=== PATIENT | female | born 1950 | race Caucasian/White ===

== ENCOUNTER 2020-05-05 21:00 | Inpatient (IN) | payer MEDICARE, SELFPAY ==
--- NOTE | ~2020-05-05 | XR_ITS ---
EXAMINATION: XR surgery orthopedic DATE: 05/06/2020 12:53 INDICATION: Left femoral subtrochanteric fracture TECHNIQUE: 9 fluoroscopic spot images of the left femur were obtained during procedure performed by Christina Tellez. Radiologist was not present for the imaging or procedure. The amount of fluoroscopy ti me used during this procedure was 3.1 minutes. COMPARISON: 05/05/2020 FINDINGS: Successful reduction to near-anatomic alignment of the previously noted displaced, angulated and rota pati subtrochanteric fracture of the proximal left femur. The fractures absolutely fixed with an anteg rade intramedullary melinda with interlocking femoral neck screw as well as a distal interlocking screw i n the distal metadiaphyseal region. Partially visualized is a prior left total knee arthroplasty with patellar resurfacing appears in near-anatomic alignment with no periprosthetic lucency to suggest lo osening. No new fractures identified. Normal alignment at the left hip with mild posterior joint spac e narrowing consistent with mild osteoarthritis. IMPRESSION: 1. Essentially anatomic alignment post open reduction internal fixation of a subtrochanteric fracture of the proximal left femur. Reviewed, dictated and finalized at location H. NESS CONTINUITY MANAGEMENT DIRECTOR IMPRESSION: 1. Essentially anatomic alignment post open reduction internal fixation of a kemp btrochanteric fracture of the proximal left femur.
--- NOTE | ~2020-05-05 | XR_ITS ---
XR chest 1V portable 05/10/2020 06:49 Indication: CovidPneumonia Procedure: AP portable chest Comparison: 05/05/2020 Findings: Patchy bilateral airspace disease, compatible with pneumonia. No significant change. Healed right rib fracture. No pleural effusion or pneumothorax. There are cholecystectomy clips. Impression: 1: Stable patchy bilateral airspace disease, compatible with pneumonia. Reviewed, dictated and finalized at location A. RESSED AIR PILE DRIVER OPERATOR Impression: 1: Stable patchy bilateral airspace disease, compatible with pneumonia.
--- NOTE | ~2020-05-05 | XR_ITS ---
EXAMINATION: XR hip LT 2V w AP pelvis DATE: 05/05/2020 21:21 INDICATION: Left hip pain post fall 2 weeks prior TECHNIQUE: Anteroposterior view of the pelvis and anteroposterior, frog leg and cross-table lateral v iews of the left hip were obtained. COMPARISON: None. FINDINGS: Oblique subtrochanteric fracture the proximal left femur. There is 70 degree posterior angulation, 35 degrees medial angulation and 6 cm proximal and medial displacement. The head of the left femur jessica ins normally centered in the left acetabulum but is significantly abducted and externally rotated. Th ere is some amorphous calcification near the proximal fracture margin consistent with calcific format ion related and subacute chronicity. Normal alignment at the right hip. No other fractures identified . Power hip joint spaces appear relatively preserved. Combined instrumented anterior and posterior sp inal fusion likely from L3 through S1. IMPRESSION: 1. Significant displacement and angulation of a subacute subtrochanteric fracture of the proximal lef t femur. Reviewed, dictated and finalized at location . MACHINE OPERATOR IMPRESSION: 1. Significant displacement and angulation of a subacute subtrochanteric fractu re of the proximal left femur.
--- NOTE | ~2020-05-05 | XR_ITS ---
XR chest 1V portable 05/09/2020 06:06 Indication: CovidPneumonia Procedure: AP portable chest Comparison: 05/05/2020 Findings: Elevated left diaphragm. Bilateral mixed interstitial and airspace disease most confluent i n the left mid and lower lung zone. No significant pleural effusion or pneumothorax. No acute osseous abnormality. Stable cardiomegaly. Impression: 1: Bilateral mixed interstitial and airspace disease with progression in the left mid and lower lung zone, consistent with pneumonia. Reviewed, dictated and finalized at location A. PULLER Impression: 1: Bilateral mixed interstitial and airspace disease with progression in the le ft mid and lower lung zone, consistent with pneumonia.
--- NOTE | ~2020-05-05 | XR_ITS ---
EXAMINATION: XR chest 1V portable DATE: 05/05/2020 21:56 INDICATION: Hypertension and leukocytosis. Fall with hip fracture. Preoperative evaluation. TECHNIQUE: frontal view of the chest was obtained. COMPARISON: None FINDINGS: Elevation of the left hemidiaphragm. Mild cardiomegaly and pulmonary vascular congestion. No focal ai rspace opacities, pulmonary edema, pleural effusion or pneumothorax. Old healed posterior right sixth rib fracture. Cholecystectomy clips in right upper quadrant. IMPRESSION: 1. Cardiomegaly with pulmonary vascular congestion but no other acute cardiopulmonary disease. 2. Elevation of the left hemidiaphragm. Reviewed, dictated and finalized at location H. VISION SERVICE ENGINEER IMPRESSION: 1. Cardiomegaly with pulmonary vascular congestion but no other acute cardiopul monary disease. 2. Elevation of the left hemidiaphragm.
[2020-05-05 20:55] VITALS: BP 140/84; PULSE 95; RESP 17; TEMP 36.4; O2SAT 97
[2020-05-05] MEDS: MORPHINE SULFATE (*CRX) 4 MG/ML INJ IV PUSH (21:40)
--- NOTE | 2020-05-05 21:40 | ECG_ITS ---
Measurements Intervals [place] Rate: 85 P: 60 GA: 184 QRS: -10 QRSD: 105 T: 32 QT: 371 QTc: 441 Interpretive Statements SINUS RHYTHM VOLTAGE CRITERIA FOR LVH BORDERLINE R WAVE PROGRESSION, ANTERIOR LEADS BASELINE ARTIFACT- I, II, III, AVL, AVF, V5 BORDERLINE ECG Electronically Signed On 05-06-2020 9:59:40 SEISMOGRAPHER by Hema Gaspar D.O.
--- NOTE | 2020-05-05 21:47 | ED.GENADULT ---
HPI - General Adult General Chief complaint: Extremity Injury, Lower Stated complaint: L hip pain, non traumatic Time Seen by Provider: 05/05/20 21:02 Source: RN notes reviewed History of Present Illness HPI narrative: Patient presents emergency department via EMS for left hip pain. Patient states that she was sitting on the toilet and to get up when she felt a pop in her left hip and pain since that time states pain with any movement of the left hip. Patient denies falling off the toilet or any other injuries. She states that she did fall approximately 3 weeks ago onto the left side and has been having left hip pain since that time she had x-rays taken that were -3 weeks ago she denies any trauma or injury since that time she denies striking her head chest pain shortness of breath or any other symptoms. Patient was given 75 mcg of fentanyl in route by EMS Related Data Home Medications Medication Instructions Recorded Confirmed adalimumab [Humira(CF) Pen] mg SUBCUT 05/05/20 albuterol sulfate INHALATION 05/05/20 amlodipine 05/05/20 atorvastatin 05/05/20 azelastine INTRANASAL 05/05/20 buspirone mg 05/05/20 celecoxib mg 05/05/20 clonazepam 05/05/20 clotrimazole mg 05/05/20 cyclobenzaprine mg 05/05/20 escitalopram oxalate mg 05/05/20 fluticasone propionate INTRANASAL 05/05/20 furosemide 05/05/20 gabapentin 05/05/20 indapamide mg 05/05/20 methadone 10 mg PO DAILY 05/05/20 montelukast mg 05/05/20 nitrofurantoin monohyd/m-cryst 05/05/20 omeprazole 05/05/20 pramipexole mg 05/05/20 prednisone 05/05/20 tramadol mg 05/05/20 trazodone 05/05/20 Allergies Allergy/AdvReac Type Severity Reaction Status Date / Time Penicillins Allergy Unknown Verified 05/05/20 21:05 scopolamine Allergy Unknown Verified 05/05/20 21:05 Sulfa (Sulfonamide Allergy Unknown Verified 05/05/20 21:05 Antibiotics) Review of Systems Review of Systems: Narrative: Gen.: Denies fevers or chills ENT: Denies congestion Respiratory: Denies shortness of breath or cough CV: Denies chest pain or palpitations GI: Denies abdominal pain nausea, emesis or diarrhea Musculoskeletal: See HPI Neuro: Denies numbness, tingling, weakness or focal weakness Skin: Denies rash Except as documented, all other systems reviewed and negative [facility] Past Medical History Medical History (Updated 05/05/20 @ 22:44 by Haja Ortega DO) Hypertension Social History Social History (Updated 05/05/20 @ 21:48 by aHja Ortega DO) Smoking status: Never smoker Exam Narrative: Exam Narrative: APPEARANCE: No acute distress, nontoxic, resting in bed EYES: EOMI HEENT: Normocephalic, atraumatic, OMM RESPIRATORY: No respiratory distress Clear to auscultation bilaterally with no rhonchi wheezing or rales. CARDIOVASCULAR: Regular rate and rhythm without murmurs rubs or gallops. ABDOMINAL: Soft, nontender, nondistended, no rebound or guarding MUSCULOSKELETAl: No clubbing, cyanosis or edema. Tender palpation of the left lateral and anterior hip, pain with any movement of the left hip no tenderness of the left knee or ankle, dorsalis pedis pulse 2+, neurovascular intact NEURO: Awake and alert. Following commands, speech normal, no focal deficits SKIN:: Warm, dry. No rashes lesions or abrasions PSYCHIATRIC: Normal affect/mood, Course Course Emergency Course: Called discussed with Dr. Tellez presentation and work-up agrees with consult at this time Called discussed Dr. Moeller presentation work-up agrees with admission at this time Discussed with patient and family results of workup and diagnosis. Discussed need for admission. Patient and family understand and agree to current treatment plan Vital Signs Vital signs: Vital Signs Temperature 97.6 F 05/05/20 20:55 Pulse Rate 95 05/05/20 20:55 Respiratory Rate 17 05/05/20 20:55 Blood Pressure 140/84 05/05/20 20:55 Pulse Oximetry 97 05/05/20 20:55 Temperature 97.6 F
[2020-05-05 21:56] LABS: Basophils Percent Auto 0.2 % (0.2-1.2); Eosinophils Percent Auto 0.1 % (0-4.4); Hematocrit 36.6 % (37.0-47.0); Hemoglobin 12.2 g/dL (12.0-15.0); Immature Granulocyte Absolute 0.07 K/mm3 (0.00-0.031); Immature Granulocyte Percent A 0.4 % (0-0.5); Lymphocytes Absolute Auto 2.11 K/mm3 (0.9-3.2); Lymphocytes Percent Auto 11.9 % (18.3-44.2); Mean Corpuscular HGB Conc 33.3 g/dl (32-36); Mean Corpuscular Hemoglobin 31.2 pg (26-34); Mean Corpuscular Volume 93.6 fl (80-100); Mean Platelet Volume 9.1 fl (7.4-10.4); Monocytes Absolute Auto 1.1 K/mm3 (0.1-0.6); Monocytes Percent Auto 6.4 % (2.6-8.5); Neutrophils Absolute Auto 14.4 K/mm3 (1.3-6.7); Platelet Count Result 128 k/mm3 (150-375); Red Blood Count 3.91 M/mm3 (4.2-5.4); Red Cell Distribution Width 14.6 % (11.5-14.5); White Blood Count 17.8 K/mm3 (4.5-10.0)
--- NOTE | 2020-05-05 22:06 | PC.NURSE ---
Unable to chart urinary catheter due to [employer]. 16F urinary catheter placed at 2200 on 05/05/2020. 200ml of clear light yellow urine retrieved. Patient tolerated well.
[2020-05-05 22:09] LABS: Alanine Aminotransferase 48 U/L (4-35); Alkaline Phosphatase 94 U/L (38-126); Anion Gap 5 mmol/L (8-16); Aspartate Amino Transferase 45 U/L (14-36); Bilirubin,Total 0.6 mg/dL (0.2-1.3); Blood Urea Nitrogen 17 mg/dL (7-17); Calcium 9.2 mg/dL (8.4-10.2); Carbon Dioxide 39 mmol/L (22-30); Chloride 93 mmol/L (98-107); Estimated CRCL calculation 103 ml/min; Estimated Glomerular Filt Rate > 60; Glucose 112 mg/dL (65-105); Potassium 3.4 mmol/L (3.4-5.0); Sodium 137 mmol/L (137-145)
--- NOTE | 2020-05-05 22:16 | PC.NURSE ---
16 hungarian nash placed prior to this time; immediate urine output. Unable to chart in work list due to problems with [employer].
[2020-05-05 22:18] LABS: Partial Thromboplastin Time 29.3 SECONDS (22.3-36.8)
[2020-05-05 22:19] VITALS: BP 147/76; PULSE 85; RESP 19; O2SAT 98
[2020-05-05 22:31] VITALS: BP 120/82; O2SAT 96
--- NOTE | 2020-05-05 22:57 | PC.NURSE ---
Trouble with [employer] being able to place order for UA and chart as collected. Ordered again and sent again at this time.
[2020-05-05 23:01] VITALS: BP 127/77; O2SAT 96
[2020-05-05 23:06] LABS: Add Urine Microscopic? YES; Appearance Urine Clear (Clear); Bilirubin Urine Negative (Negative); Blood Urine Negative (Negative); Color Urine Straw (Yellow); Glucose Urine UA Negative (Negative); Ketones Urine Negative (Negative); Leukocyte Esterase Ur Negative LEU/UL (Negative); Mucus Urine Rare /lpf; Nitrate Urine Negative (Negative); Protein Urine 1+ mg/dL (Negative); Specific Grav Ur 1.013 (1.001-1.035); Urobilinogen Urine Negative mg/dL (<2.0)
[2020-05-06] VITALS (19 sets, daily range): BP systolic 100–162; BP diastolic 52–92; PULSE 59–121; RESP 15–22; TEMP 36.2–38.4; O2SAT 92–100; BMI 33.9
[2020-05-06] MEDS: MORPHINE SULFATE (*CRX) 4 MG/ML INJ IV PUSH ×5 (00:17→19:03)
--- NOTE | 2020-05-06 00:22 | ADMGEN ---
This patient, Estefany Loja, was admitted to Medical Room [address] [place] [address] on 05/05/2020. Patient/family oriented to hospital policies and general routines including ID bracelet, bed and alarms, visiting hours, pain management, procedures, bathroom and other care routines, personal items, smoking policy, room service/diet, and visiting hours. Information on how to activate the Rapid Response Team has been discussed. Patient/Family are encouraged to report perceived risks to care and to ask questions if they do not understand what they are told or what they should do.
--- NOTE | 2020-05-06 01:16 | PM.IMHP ---
H&P: HPI History of Present Illness Date/Time: 05/06/20 01:16 Chief complaint: L hip fx Narrative: This is a pleasant 69-year-old female with known history of severe rheumatoid arthritis and hypertension who presented to the [facility] with a complaint of left hip pain. The patient mentions that she was getting up off of the toilet today when suddenly she felt a pop in her left hip and then experienced severe pain of her left hip. She denies any acute injuries but does relate that she did suffer a fall about 3 weeks ago which she described as losing her balance and falling on her left side. Since that time she has had increased left hip pain and initially believed that maybe she just pulled a muscle. She has been ambulating with a walker and a wheelchair since then. On arrival to the emergency room the patient was found to have significant displacement and angulation of a subacute subtrochanteric fracture of the proximal left femur on plain xray films. She has been given pain medications and orthopedic surgeon, Dr. Tellez has been consulted. On my encounter with the patient she is still complaining of mild left hip pain. She currently denies any fever, chills, chest pain, shortness of breath, nausea, vomiting, headache, dizziness, abdominal pain, dysuria, hematuria, diarrhea, or rectal bleeding. She has no other significant complaints at this time. Review of Systems Review of Systems: All systems reviewed & are unremarkable except as noted in HPI and below PMFSH Past Medical History Medical History Chronic respiratory failure COPD (chronic obstructive pulmonary disease) GERD (gastroesophageal reflux disease) Hyperlipidemia Hypertension Obstructive sleep apnea Restless leg syndrome Rheumatoid arthritis Surgical History Surgical History History of knee replacement Family History Family History Sibling Lung cancer Social History Social History Smoking status: Never smoker Alcohol intake: current Drinks per week: 1 Substance use: never Substance use type: does not use Meds Home Medications and Allergies Home Medications Medication Instructions Recorded Confirmed Type albuterol sulfate 2 puff INHALATION Q4H PRN 05/05/20 05/05/20 History amlodipine 5 mg PO DAILY 05/05/20 05/05/20 History atorvastatin 20 mg PO DAILY 05/05/20 05/05/20 History azelastine 137 mcg INTRANASAL BID 05/05/20 05/05/20 History buspirone 10 mg PO TID 05/05/20 05/05/20 History celecoxib 200 mg PO BID 05/05/20 05/05/20 History clonazepam 0.5 mg PO DAILY PRN 05/05/20 05/05/20 History clotrimazole 10 mg PO QID 05/05/20 05/05/20 History cyclobenzaprine 5 mg PO HS 05/05/20 05/05/20 History escitalopram oxalate 20 mg PO DAILY 05/05/20 05/05/20 History fluticasone propionate 50 mcg INTRANASAL DAILY 05/05/20 05/05/20 History gabapentin 100 mg PO BID 05/05/20 05/05/20 History indapamide 2.5 mg PO DAILY 05/05/20 05/05/20 History montelukast 10 mg PO HS 05/05/20 05/05/20 History omeprazole 20 mg PO DAILY 05/05/20 05/05/20 History pramipexole 4.5 mg PO HS 05/05/20 05/05/20 History tramadol 50 mg PO BID 05/05/20 05/05/20 History trazodone 50 mg PO HS 05/05/20 05/06/20 History Lactobacillus reuteri 1 cell PO DAILY 05/06/20 05/06/20 History adalimumab [Humira(CF) Pen] 40 mg SUBCUT [id number] 05/06/20 05/06/20 History cholecalciferol (vitamin D3) 10 mcg PO DAILY 05/06/20 05/06/20 History [Vitamin D3] fluticasone furoate-vilanterol 1 inh INHALATION DAILY 05/06/20 05/06/20 History [Breo Ellipta] ipratropium-albuterol 3 ml INHALATION QID 05/06/20 05/06/20 History multivitamin with minerals 1 tablet PO DAILY 05/06/20 05/06/20 History prednisone 5 mg PO BID 05/06/20 05/06/20 History Allergies Allergy/AdvReac Type Severit
[2020-05-06] MEDS: MONTELUKAST SODIUM 10 MG TABLET PO ×2 (02:36→20:26)
[2020-05-06] MEDS: busPIRone HCL 10 MG TABLET PO ×3 (02:36→16:11)
[2020-05-06] MEDS: CYCLOBENZAPRINE HCL 5 MG TABLET PO ×2 (02:36→20:26)
[2020-05-06] MEDS: traZODone HCL 50 MG TABLET PO ×2 (02:37→20:26)
[2020-05-06 05:54] LABS: Basophils Percent Auto 0.2 % (0.2-1.2); Eosinophils Absolute Auto 0.1 K/mm3 (0-0.3); Eosinophils Percent Auto 0.7 % (0-4.4); Hematocrit 34.6 % (37.0-47.0); Hemoglobin 11.3 g/dL (12.0-15.0); Immature Granulocyte Absolute 0.06 K/mm3 (0.00-0.031); Immature Granulocyte Percent A 0.5 % (0-0.5); Lymphocytes Absolute Auto 1.85 K/mm3 (0.9-3.2); Lymphocytes Percent Auto 16.2 % (18.3-44.2); Mean Corpuscular HGB Conc 32.7 g/dl (32-36); Mean Corpuscular Hemoglobin 30.9 pg (26-34); Mean Corpuscular Volume 94.5 fl (80-100); Monocytes Percent Auto 8.8 % (2.6-8.5); Neutrophils Absolute Auto 8.4 K/mm3 (1.3-6.7); Neutrophils Percent Auto 73.6 % (45.5-73.1); Platelet Count Result 102 k/mm3 (150-375); Red Blood Count 3.66 M/mm3 (4.2-5.4); Red Cell Distribution Width 14.7 % (11.5-14.5); White Blood Count 11.5 K/mm3 (4.5-10.0)
[2020-05-06 06:10] LABS: Anion Gap 4.99999 mmol/L (8-16); Blood Urea Nitrogen 16 mg/dL (7-17); Calcium 8.8 mg/dL (8.4-10.2); Carbon Dioxide > 40 mmol/L (22-30); Chloride 94 mmol/L (98-107); Estimated CRCL calculation 84 ml/min; Estimated Glomerular Filt Rate > 60; Glucose 96 mg/dL (65-105); Potassium 3.1 mmol/L (3.4-5.0); Sodium 139 mmol/L (137-145)
--- NOTE | 2020-05-06 08:12 | WPDANESEPPF ---
Anes - Initial Pre Proc Eval Procedure: Operation Date: 05/06/20 10:00 Proposed Procedures p Intertrochanteric Nail(Left) - Ti Tellez MD Date/Time: 05/06/20 08:12 Surgeon: Chandler Moeller MD Pre Op Diagnosis: L hip fx Patient Data Age: 69 Gender: F Height: 1.63 m Weight: 89.6 kg Last Vital Signs Temp 36.2 C L 05/06/20 06:00 Pulse 77 05/06/20 06:00 Resp 18 05/06/20 06:00 BP 129/63 05/06/20 06:00 Pulse Ox 96 05/06/20 06:00 Allergies Allergy/AdvReac Type Severity Reaction Status Date / Time Penicillins Allergy Unknown Verified 05/06/20 00:23 scopolamine Allergy Unknown Verified 05/06/20 00:23 Sulfa (Sulfonamide Allergy Unknown Verified 05/06/20 00:23 Antibiotics) Home Medications Medication Instructions Recorded Confirmed Type albuterol sulfate 2 puff INHALATION Q4H PRN 05/05/20 05/05/20 History amlodipine 5 mg PO DAILY 05/05/20 05/05/20 History atorvastatin 20 mg PO DAILY 05/05/20 05/05/20 History azelastine 137 mcg INTRANASAL BID 05/05/20 05/05/20 History buspirone 10 mg PO TID 05/05/20 05/05/20 History celecoxib 200 mg PO BID 05/05/20 05/05/20 History clonazepam 0.5 mg PO DAILY PRN 05/05/20 05/05/20 History clotrimazole 10 mg PO QID 05/05/20 05/05/20 History cyclobenzaprine 5 mg PO HS 05/05/20 05/05/20 History escitalopram oxalate 20 mg PO DAILY 05/05/20 05/05/20 History fluticasone propionate 50 mcg INTRANASAL DAILY 05/05/20 05/05/20 History gabapentin 100 mg PO BID 05/05/20 05/05/20 History indapamide 2.5 mg PO DAILY 05/05/20 05/05/20 History montelukast 10 mg PO HS 05/05/20 05/05/20 History omeprazole 20 mg PO DAILY 05/05/20 05/05/20 History pramipexole 4.5 mg PO HS 05/05/20 05/05/20 History tramadol 50 mg PO BID 05/05/20 05/05/20 History trazodone 50 mg PO HS 05/05/20 05/06/20 History Lactobacillus reuteri 1 cell PO DAILY 05/06/20 05/06/20 History adalimumab [Humira(CF) Pen] 40 mg SUBCUT [id number] 05/06/20 05/06/20 History cholecalciferol (vitamin D3) 10 mcg PO DAILY 05/06/20 05/06/20 History [Vitamin D3] fluticasone furoate-vilanterol 1 inh INHALATION DAILY 05/06/20 05/06/20 History [Breo Ellipta] ipratropium-albuterol 3 ml INHALATION QID 05/06/20 05/06/20 History multivitamin with minerals 1 tablet PO DAILY 05/06/20 05/06/20 History prednisone 5 mg PO BID 05/06/20 05/06/20 History Laboratory Tests 05/05/20 05/05/20 05/05/20 21:43 21:43 21:43 WBC 17.8 K/mm3 H K/mm3 (4.5-10.0) RBC 3.91 M/mm3 L M/mm3 (4.2-5.4) Hgb 12.2 g/dL g/dL (12.0-15.0) Hct 36.6 % L % (37.0-47.0) MCV 93.6 fl fl (80-100) MCH 31.2 pg pg (26-34) MCHC 33.3 g/dl g/dl (32-36) RDW 14.6 % H % (11.5-14.5) Plt Count 128 k/mm3 L k/mm3 (150-375) MPV 9.1 fl fl (7.4-10.4) Immature Gran % (Auto) 0.4 % % (0-0.5) Neut % (Auto) 81.0 % H % (45.5-73.1) Lymph % (Auto) 11.9 % L % (18.3-44.2) Dickens % (Auto) 6.4 % % (2.6-8.5) Eos % (Auto) 0.1 % % (0-4.4) Baso % (Auto) 0.2 % % (0.2-1.2) Lymph # (Auto) 2.11 K/mm3 K/mm3 (0.9-3.2) Dickens # (Auto) 1.1 K/mm3 H K/mm3 (0.1-0.6) Eos # (Auto) 0.0 K/mm3 K/mm3 (0-0.3) Baso # (Auto) 0.0 K/mm3 K/mm3 (0.0-0.1) Abs Immat Gran (auto) 0.07 K/mm3 H K/mm3 (0.00-0.031) Absolute Neuts (auto) 14.4 K/mm3 H K/mm3 (1.3-6.7) Absolute Nucleated RBC 0.0 K/mm3 K/mm3 (0.0-0.012) Nucleated RBC % 0.0 % % (0.0-0.2) PT 14.0 Seconds Seconds (11.1-14.7) INR 1.0 APTT 29.3 SECONDS SECONDS (22.3-36.8) Sodium 137 mmol/L mmol/L (137-145) Potassium 3.4 mmol/L mmol/L (3.4-5.0) Chloride 93 mmol/L L mmol/L (98-107) Carbon Dioxide 39 mmol/L H mmol/L (22-30) Anion Gap 5 mmol/L L mmol/L (8-16) BUN 17 mg/dL mg/dL (7-17) C
[2020-05-06] MEDS: predniSONE 5 MG TABLET PO ×2 (08:58→16:12)
[2020-05-06] MEDS: amLODIPine BESYLATE 5 MG TABLET PO (08:59)
[2020-05-06] MEDS: ESCITALOPRAM OXALATE 10 MG TABLET 20 MG PO (09:00)
[2020-05-06] MEDS: INDAPAMIDE 2.5 MG TABLET PO (09:00)
[2020-05-06] MEDS: ONDANSETRON INJ 4 MG/2 ML VIAL IV PUSH (09:07)
--- NOTE | 2020-05-06 10:03 | PM.CNOR ---
Assessment and Plan Assessment and plan (1) Closed subtrochanteric fracture of left femur: Qualifiers: Encounter type: initial encounter Fracture alignment: displaced Qualified Code(s): S72.22XA - Displaced subtrochanteric fracture of left femur, initial encounter for closed fracture Code(s): S72.22XA - Displaced subtrochanteric fracture of left femur, initial encounter for closed fracture Status: Acute (2) Rheumatoid arthritis: Qualifiers: Rheumatoid arthritis location: unspecified site Rheumatoid factor presence: unspecified presence Qualified Code(s): M06.9 - Rheumatoid arthritis, unspecified Code(s): M06.9 - Rheumatoid arthritis, unspecified Status: Acute (3) COPD (chronic obstructive pulmonary disease): Qualifiers: COPD type: unspecified COPD Qualified Code(s): J44.9 - Chronic obstructive pulmonary disease, unspecified Code(s): J44.9 - Chronic obstructive pulmonary disease, unspecified Status: Chronic Assessment and Plan: Displaced subtrochanteric fracture. Transverse fracture is highly unstable. Prodrome of pain suggests the subtle nondisplaced fracture that has gone on to complete displacement. There is some callus on the radiographs. The fracture is significantly shortened. Typical flexion and rotational deformity of the proximal fragment. History of total knee arthroplasty bilateral. Will benefit from open reduction and internal fixation. Likely provisional plate fixation followed by nailing. Discussed the risks, benefits, and alternatives with the patient at length. Significant risk for bleeding. Malunion and delayed union are significant risks. Hardware failure and late periprosthetic fracture or risk particularly due to the knee implant. Proceed today with ORIF of left femur subtrochanteric fracture with intramedullary nail. History of Present Illness HPI Consult date: 05/06/20 Chief complaint: L hip fx Narrative: Patient complains of acute hip pain. Initial prodrome of pain 2-3 weeks ago. Radiographs were reportedly negative. Then sudden onset of pain while standing up from a seated position. Admitted through the emergency room for definitive management. No numbness, tingling, or other associated symptoms. History of rheumatoid arthritis. History of COPD. On supplemental nasal cannula oxygen. Review of Systems Review of Systems: Narrative: Denies loss of consciousness. All systems reviewed & are unremarkable except as noted in HPI and below PMFSH Past Medical History Medical History Chronic respiratory failure COPD (chronic obstructive pulmonary disease) GERD (gastroesophageal reflux disease) Hyperlipidemia Hypertension Obstructive sleep apnea Restless leg syndrome Rheumatoid arthritis Surgical History Surgical History History of knee replacement Family History Family History Sibling Lung cancer Social History Social History Smoking status: Never smoker Alcohol intake: current Drinks per week: 1 Substance use: never Substance use type: does not use Meds Home Medications and Allergies Home Medications Medication Instructions Recorded Confirmed Type albuterol sulfate 2 puff INHALATION Q4H PRN 05/05/20 05/05/20 History amlodipine 5 mg PO DAILY 05/05/20 05/05/20 History atorvastatin 20 mg PO DAILY 05/05/20 05/05/20 History azelastine 137 mcg INTRANASAL BID 05/05/20 05/05/20 History buspirone 10 mg PO TID 05/05/20 05/05/20 History celecoxib 200 mg PO BID 05/05/20 05/05/20 History clonazepam 0.5 mg PO DAILY PRN 05/05/20 05/05/20 History clotrimazole 10 mg PO QID 05/05/20 05/05/20 History cyclobenzaprine 5 mg PO HS 05/05/20 05/05/20 History escitalopram oxalate 20 m
--- NOTE | 2020-05-06 10:14 | WPDHPUPDATE1 ---
History and Physical Update Update Date/Time: 05/06/20 10:14 History and Physical has been reviewed, including an updated exam of the patient. There are NO changes in the patient's condition. Risks, benefits, and alternatives have been discussed and questions answered. Patient agrees to proceed with procedure.
[2020-05-06] MEDS: ceFAZolin SODIUM 1 GM VIAL 2 GM IV PUSH (11:20)
--- NOTE | 2020-05-06 13:21 | PM.IMPN ---
Progress Note: A&P Assessment and Plan (1) Closed subtrochanteric fracture of left femur: Qualifiers: Encounter type: initial encounter Fracture alignment: displaced Qualified Code(s): S72.22XA - Displaced subtrochanteric fracture of left femur, initial encounter for closed fracture Code(s): S72.22XA - Displaced subtrochanteric fracture of left femur, initial encounter for closed fracture Status: Acute Assessment and Plan: Pain control as needed. Mcdonald catheter. Ortho has been consulted by ER provider and plan is to OR today for open reduction internal fixation of the fracture (2) Hypertension: Qualifiers: Hypertension type: unspecified Qualified Code(s): I10 - Essential (primary) hypertension Code(s): I10 - Essential (primary) hypertension Status: Chronic Assessment and Plan: Monitor blood pressure. Continue amlodipine. (3) Rheumatoid arthritis: Qualifiers: Rheumatoid arthritis location: unspecified site Rheumatoid factor presence: unspecified presence Qualified Code(s): M06.9 - Rheumatoid arthritis, unspecified Code(s): M06.9 - Rheumatoid arthritis, unspecified Status: Acute Assessment and Plan: Continue steroid therapy, may have to stress dose and sure anesthesiology will give extra (4) Leukocytosis: Qualifiers: Leukocytosis type: unspecified Qualified Code(s): D72.829 - Elevated white blood cell count, unspecified Code(s): D72.829 - Elevated white blood cell count, unspecified Status: Acute Assessment and Plan: Likely secondary to steroid use from chronic respiratory failure and rheumatoid arthritis. Or stress, Monitor CBCD. (5) Transaminitis: Code(s): R74.01 - Elevation of levels of liver transaminase levels Status: Acute Assessment and Plan: May be secondary to fatty liver disease. Monitor LFTs. And check hepatitis profile (6) Hyperlipidemia: Qualifiers: Hyperlipidemia type: unspecified Qualified Code(s): E78.5 - Hyperlipidemia, unspecified Code(s): E78.5 - Hyperlipidemia, unspecified Status: Chronic Assessment and Plan: continue statin therapy. (7) Restless leg syndrome: Code(s): G25.81 - Restless legs syndrome Status: Chronic Assessment and Plan: continue pramipexole (8) GERD (gastroesophageal reflux disease): Qualifiers: Esophagitis presence: esophagitis presence not specified Qualified Code(s): K21.9 - Gastro-esophageal reflux disease without esophagitis Code(s): K21.9 - Gastro-esophageal reflux disease without esophagitis Status: Chronic Assessment and Plan: continue PPI therapy (9) Chronic respiratory failure: Qualifiers: Respiratory failure complication: unspecified whether with hypoxia or hypercapnia Qualified Code(s): J96.10 - Chronic respiratory failure, unspecified whether with hypoxia or hypercapnia Code(s): J96.10 - Chronic respiratory failure, unspecified whether with hypoxia or hypercapnia Status: Chronic Assessment and Plan: continue oxygen supplementation (10) COPD (chronic obstructive pulmonary disease): Qualifiers: COPD type: unspecified COPD Qualified Code(s): J44.9 - Chronic obstructive pulmonary disease, unspecified Code(s): J44.9 - Chronic obstructive pulmonary disease, unspecified Status: Chronic Assessment and Plan: continue bronchodilators (11) Obstructive sleep apnea: Code(s): G47.33 - Obstructive sleep apnea (adult) (pediatric) Status: Chronic Assessment and Plan: continue CPAP. Subjective Date/time seen: 05/06/20 13:21 Interval history: Date of visit 05/06. 69-year-old hypertensive white female with rheumatoid arthritis and chronic respiratory failure on home O2 presented with acute pain in left hip after a popping sensation. Found to have a
[2020-05-06] MEDS: LACTATED RINGERS 1,000 ML 30 ML IV CONT ×2 (13:58)
[2020-05-06] MEDS: fentaNYL CITRATE INJ (*CRX) 100 MCG/2 ML VIAL 25 MCG IV PUSH ×2 (14:42→14:46)
[2020-05-06] MEDS: FLUTICASONE PROPIONATE 0.05% NA SPR 16 GM BTL (*BKC) 2 SPRAY NASAL (15:45)
[2020-05-06] MEDS: GABAPENTIN 100 MG CAPSULE PO (15:46)
[2020-05-06] MEDS: PANTOPRAZOLE 40 MG TABLET PO (15:46)
[2020-05-06] MEDS: AZELASTINE HCL NASAL 0.1% 137 MCG/SPR 30 ML BTL 2 SPRAY NASAL (15:46)
[2020-05-06] MEDS: ATORVASTATIN 20 MG TABLET PO (15:47)
[2020-05-06] MEDS: THERAPEUTIC MULTIVITAMINS/MINERALS TAB (*BKC) 1 TABLET PO (15:47)
[2020-05-06] MEDS: CHOLECALCIFEROL 400 UNITS TABLET (VIT D) PO (15:47)
[2020-05-06] MEDS: KCL 20 MEQ/D5/0.45% SOD CHL 1,000 ML 80 ML IV CONT (16:01)
[2020-05-06] MEDS: CLOTRIMAZOLE 10 MG TROC PO ×2 (16:11→20:26)
[2020-05-06] MEDS: DOCUSATE SODIUM 100 MG CAPSULE PO (16:13)
[2020-05-06] MEDS: ALBUTEROL SULFATE (*SP) AEROSOL 1 PUFF 2 PUFF INHALATION ×2 (17:36→23:55)
[2020-05-06] MEDS: ACETAMINOPHEN 500 MG TABLET PO (17:54)
[2020-05-06] MEDS: oxyCODONE HCL (*CRX) 2.5 MG TAB IR PO ×2 (17:54→22:23)
[2020-05-06] MEDS: clonazePAM (*CRX) 0.5 MG TABLET PO (18:22)
[2020-05-06] MEDS: PRAMIPEXOLE 0.5 MG TABLET 4.5 MG PO (20:26)
[2020-05-07] VITALS (8 sets, daily range): BP systolic 117–138; BP diastolic 62–65; PULSE 96–111; RESP 16–20; TEMP 36.2–36.6; O2SAT 88–95
[2020-05-07] MEDS: ACETAMINOPHEN 500 MG TABLET PO ×3 (03:04→17:11)
[2020-05-07 06:14] LABS: Basophils Percent Auto 0.2 % (0.2-1.2); Eosinophils Percent Auto 0.1 % (0-4.4); Hematocrit 29.2 % (37.0-47.0); Hemoglobin 9.5 g/dL (12.0-15.0); Immature Granulocyte Absolute 0.07 K/mm3 (0.00-0.031); Immature Granulocyte Percent A 0.6 % (0-0.5); Lymphocytes Absolute Auto 1.62 K/mm3 (0.9-3.2); Lymphocytes Percent Auto 13.8 % (18.3-44.2); Mean Corpuscular HGB Conc 32.5 g/dl (32-36); Mean Corpuscular Hemoglobin 30.8 pg (26-34); Mean Corpuscular Volume 94.8 fl (80-100); Mean Platelet Volume 9.2 fl (7.4-10.4); Monocytes Absolute Auto 1.8 K/mm3 (0.1-0.6); Monocytes Percent Auto 15.2 % (2.6-8.5); Neutrophils Absolute Auto 8.3 K/mm3 (1.3-6.7); Neutrophils Percent Auto 70.1 % (45.5-73.1); Platelet Count Result 94 k/mm3 (150-375); Red Blood Count 3.08 M/mm3 (4.2-5.4); Red Cell Distribution Width 15.3 % (11.5-14.5); White Blood Count 11.8 K/mm3 (4.5-10.0)
[2020-05-07 06:34] LABS: Anion Gap 4.99999 mmol/L (8-16); Blood Urea Nitrogen 15 mg/dL (7-17); Calcium 8.3 mg/dL (8.4-10.2); Carbon Dioxide > 40 mmol/L (22-30); Chloride 89 mmol/L (98-107); Estimated CRCL calculation 84 ml/min; Estimated Glomerular Filt Rate > 60; Glucose 121 mg/dL (65-105); Potassium 3.1 mmol/L (3.4-5.0); Sodium 134 mmol/L (137-145)
[2020-05-07 07:14] LABS: Hepatitis B Surface Antigen Negative (Negative)
[2020-05-07 07:19] LABS: HAV RESULT Negative (Negative); Hepatitis B Core IgM Result Negative (Negative)
[2020-05-07 07:31] LABS: Hepatitis C Virus Antibody Negative (Negative)
[2020-05-07] MEDS: CLOTRIMAZOLE 10 MG TROC PO ×4 (08:38→20:38)
[2020-05-07] MEDS: POTASSIUM CHLORIDE 20 MEQ TABLET 40 MEQ PO (08:38)
[2020-05-07] MEDS: AZELASTINE HCL NASAL 0.1% 137 MCG/SPR 30 ML BTL 2 SPRAY NASAL ×2 (08:39→17:07)
[2020-05-07] MEDS: INDAPAMIDE 2.5 MG TABLET PO (08:39)
[2020-05-07] MEDS: CHOLECALCIFEROL 400 UNITS TABLET (VIT D) PO (08:39)
[2020-05-07] MEDS: PANTOPRAZOLE 40 MG TABLET PO (08:39)
[2020-05-07] MEDS: busPIRone HCL 10 MG TABLET PO ×3 (08:39→17:06)
[2020-05-07] MEDS: amLODIPine BESYLATE 5 MG TABLET PO (08:40)
[2020-05-07] MEDS: FLUTICASONE PROPIONATE 0.05% NA SPR 16 GM BTL (*BKC) 2 SPRAY NASAL (08:40)
[2020-05-07] MEDS: GABAPENTIN 100 MG CAPSULE PO ×2 (08:40→17:06)
[2020-05-07] MEDS: ATORVASTATIN 20 MG TABLET PO (08:40)
[2020-05-07] MEDS: ESCITALOPRAM OXALATE 10 MG TABLET 20 MG PO (08:40)
[2020-05-07] MEDS: THERAPEUTIC MULTIVITAMINS/MINERALS TAB (*BKC) 1 TABLET PO (08:41)
[2020-05-07] MEDS: RIVAROXABAN 10 MG TABLET PO (08:41)
[2020-05-07] MEDS: predniSONE 5 MG TABLET PO ×2 (08:41→17:06)
[2020-05-07] MEDS: DOCUSATE SODIUM 100 MG CAPSULE PO ×2 (08:42→17:07)
[2020-05-07] MEDS: ACIDOPHILUS/BULGARICUS CHEWABLE TABLET 1 TABLET BY MOUTH (08:42)
--- NOTE | 2020-05-07 09:20 | P.PNAN_ITS ---
Anes - Prog Note Post-Op Date/Time: 05/07/20 09:20 Cardiovascular status: normal Respiratory status: normal Airway patency: baseline Mental status: other (very drowsy this A.M.) Post-Op hydration status: normal Vital Signs: Last Vital Signs Temp 36.6 C 05/07/20 06:00 Pulse 111 H 05/07/20 06:00 Resp 20 05/07/20 06:00 BP 128/62 05/07/20 06:00 Pulse Ox 94 05/07/20 08:40 Pain Score (VAS): 4 I/O: Intake & Output 05/06/20 05/07/20 05/07/20 23:59 07:59 15:59 Intake Total 295 858 Output Total 550 800 Balance -255 58 Laboratory Tests 05/07/20 04:44 05/07/20 04:44 05/07/20 05/07/20 05/07/20 04:44 04:44 04:44 WBC 11.8 H RBC 3.08 L Hgb 9.5 L Hct 29.2 L MCV 94.8 MCH 30.8 MCHC 32.5 RDW 15.3 H Plt Count 94 L MPV 9.2 Immature Gran % (Auto) 0.6 H Neut % (Auto) 70.1 Lymph % (Auto) 13.8 L [place] % (Auto) 15.2 H Eos % (Auto) 0.1 Baso % (Auto) 0.2 Lymph # (Auto) 1.62 [place] # (Auto) 1.8 H Eos # (Auto) 0.0 Baso # (Auto) 0.0 Abs Immat Gran (auto) 0.07 H Absolute Neuts (auto) 8.3 H Absolute Nucleated RBC 0.0 Nucleated RBC % 0.0 Sodium 134 L Potassium 3.1 L Chloride 89 L Carbon Dioxide > 40 H Anion Gap 4.83558 L BUN 15 Creatinine 0.60 L Estim Creat Clear Calc 84 Estimated GFR > 60 Glucose 121 H Calcium 8.3 L Hepatitis A IgM Ab Negative Hep Bs Antigen Negative Hep B Core IgM Ab Negative Hepatitis C Ab Screen Negative Post-procedural complaints: none Patient Feedback: Patient satisfied with anesthetic care.
[2020-05-07] MEDS: oxyCODONE HCL (*CRX) 5 MG TAB IR PO (09:33)
[2020-05-07] MEDS: clonazePAM (*CRX) 0.5 MG TABLET PO (09:33)
[2020-05-07] MEDS: KCL 20 MEQ/D5/0.45% SOD CHL 1,000 ML 80 ML IV CONT ×2 (09:34→22:24)
--- NOTE | 2020-05-07 10:11 | PCOTNOTE ---
Attempted OT evaluation, pt reports to tired at this time, patient has just finished PT, will attempt at later time.
--- NOTE | 2020-05-07 12:04 | P.OP_ITS ---
Procedure Note - Detailed Date of procedure: 05/07/20 Pre-op diagnosis: L hip fx Post-op diagnosis: same (Displaced subtrochanteric fracture left femur.) Procedure performed: ORIF Left subtrochanteric femur fracture with long Cephalomedullary nail. Description of procedure: The fracture was widely displaced, and unstable. Due to the significant displacement and shortening, an open reduction was required. Reduction clamps were used to manipulate the fracture into a near anatomic alignment. Subsequently nailing was performed. Dynamic locking of the distal hole was performed. The fracture was compressed prior to locking. Implants: [place] Gamma nail, 360mm; 90mm lag screw. 50mm distal locking screw. Anesthesia: GETA Surgeon: Ti Tellez MD Residence Supervisor: Cassia Glaser PA-C Estimated blood loss (mL): 300 Drains: No Complications: None Condition: stable Disposition: PACU Findings: Physician assistant community director necessary for patient positioning on the fracture table; assistance with fracture reduction and maintenance of bony apposition during reduction clamp placement; maintaining fracture reduction during nailing; maintaining a dry surgical field; closure of the deep and superficial wounds; assisting transfer of the patient off of the fracture table. Operative details. The patient was given a general anesthetic, then carefully placed in fracture table. Sterile prep and drape performed in the usual fashion. Sterile curtain was used. Gentle traction was utilized to reduce the fracture. The fracture was highly on table and closed reduction was not possible. A longitudinal incision was created at the fracture site laterally. The vastus lateralis was elevated off the intermuscular septum after splitting the iliotibial band. The fracture with cleaned and cleared of early callus debris. Care was taken to avoid any further stripping of the soft tissues. Fracture was reduced with a combination of pointed reduction forceps and reduction clamps. Fluoroscopy was used to confirm anatomic reduction and a proper placement of the implants. A longitudinal incision was created at the tip of the trochanter. The deep fascia was incised. The cannulated awl was used to open the proximal femur. The guidewire was placed across the fracture. The reamer was used to open the canal. Sequential reaming was performed distally to 12 mm. Bone quality was surprisingly good. Chatter obtained at the isthmus. The gamma nail was placed across the fracture site. The cannulated guide sleeve was placed through the previous lateral incision. The fascia was split inferiorly slightly to accommodate the proper external rotation. The guide pin was placed in the center of the femoral head. Appropriate measurement was taken. The pin was over reamed. The screw was placed with excellent purchase. The set screw was placed proximally. Traction was released. Gentle hammering at the proximal jig provided for excellent compression at the fracture site which was primarily transverse. The jig was removed. Attention was turned to the distal locking. A technique utilizing perfect circles was employed. The distal dynamic screw was used. The wound was irrigated. The deep fascia was closed with #1 Vicryl suture followed by 2-0 Vicryl suture and kell. Sterile dressing was applied. The patient was transferred to the recovery room in stable condition. There were no complications.
--- NOTE | 2020-05-07 13:25 | PM.IMPN ---
Progress Note: A&P Assessment and Plan (1) Closed subtrochanteric fracture of left femur: Qualifiers: Encounter type: initial encounter Fracture alignment: displaced Qualified Code(s): S72.22XA - Displaced subtrochanteric fracture of left femur, initial encounter for closed fracture Code(s): S72.22XA - Displaced subtrochanteric fracture of left femur, initial encounter for closed fracture Status: Acute Assessment and Plan: Pain control as needed. Mcdonald catheter. ORIF 05/06 POD #1 doing well (2) Hypertension: Qualifiers: Hypertension type: unspecified Qualified Code(s): I10 - Essential (primary) hypertension Code(s): I10 - Essential (primary) hypertension Status: Chronic Assessment and Plan: evalulated 05/07. Continue amlodipine. (3) Rheumatoid arthritis: Qualifiers: Rheumatoid arthritis location: unspecified site Rheumatoid factor presence: unspecified presence Qualified Code(s): M06.9 - Rheumatoid arthritis, unspecified Code(s): M06.9 - Rheumatoid arthritis, unspecified Status: Acute Assessment and Plan: Continue steroid therapy,no stress dose given (4) Leukocytosis: Qualifiers: Leukocytosis type: unspecified Qualified Code(s): D72.829 - Elevated white blood cell count, unspecified Code(s): D72.829 - Elevated white blood cell count, unspecified Status: Acute Assessment and Plan: Likely secondary to steroid use from chronic respiratory failure and rheumatoid arthritis. Or stress, continues to fall only 11.5K today (5) Transaminitis: Code(s): R74.01 - Elevation of levels of liver transaminase levels Status: Acute Assessment and Plan: May be secondary to fatty liver disease or even statin Monitor LFTs. hepatitis profile neg. recheck LFTS am (6) Hyperlipidemia: Qualifiers: Hyperlipidemia type: unspecified Qualified Code(s): E78.5 - Hyperlipidemia, unspecified Code(s): E78.5 - Hyperlipidemia, unspecified Status: Chronic Assessment and Plan: continue statin therapy. (7) Restless leg syndrome: Code(s): G25.81 - Restless legs syndrome Status: Chronic Assessment and Plan: continue pramipexole (8) GERD (gastroesophageal reflux disease): Qualifiers: Esophagitis presence: esophagitis presence not specified Qualified Code(s): K21.9 - Gastro-esophageal reflux disease without esophagitis Code(s): K21.9 - Gastro-esophageal reflux disease without esophagitis Status: Chronic Assessment and Plan: continue PPI therapy (9) Chronic respiratory failure: Qualifiers: Respiratory failure complication: unspecified whether with hypoxia or hypercapnia Qualified Code(s): J96.10 - Chronic respiratory failure, unspecified whether with hypoxia or hypercapnia Code(s): J96.10 - Chronic respiratory failure, unspecified whether with hypoxia or hypercapnia Status: Chronic Assessment and Plan: continue oxygen supplementation (10) COPD (chronic obstructive pulmonary disease): Qualifiers: COPD type: unspecified COPD Qualified Code(s): J44.9 - Chronic obstructive pulmonary disease, unspecified Code(s): J44.9 - Chronic obstructive pulmonary disease, unspecified Status: Chronic Assessment and Plan: continue bronchodilators (11) Obstructive sleep apnea: Code(s): G47.33 - Obstructive sleep apnea (adult) (pediatric) Status: Chronic Assessment and Plan: continue CPAP. (12) Postoperative anemia: Code(s): D64.9 - Anemia, unspecified Status: Acute Assessment and Plan: mild anemia, hgb down to 9.5 and continue to follow Subjective Date/time seen: 05/07/20 13:25 Interval history: Date of visit 05/07. 69-year-old hypertensive white female with rheumatoid arthritis and chronic respiratory failure on home
[2020-05-07] MEDS: oxyCODONE HCL (*CRX) 2.5 MG TAB IR PO ×2 (18:42→23:07)
[2020-05-07] MEDS: MONTELUKAST SODIUM 10 MG TABLET PO (20:38)
[2020-05-07] MEDS: PRAMIPEXOLE 0.5 MG TABLET 4.5 MG PO (20:38)
[2020-05-07] MEDS: CYCLOBENZAPRINE HCL 5 MG TABLET PO (20:38)
[2020-05-07] MEDS: traZODone HCL 50 MG TABLET PO (20:38)
[2020-05-07] MEDS: ALBUTEROL SULFATE (*SP) AEROSOL 1 PUFF 2 PUFF INHALATION (20:56)
[2020-05-08] VITALS (11 sets, daily range): BP systolic 106–128; BP diastolic 61–82; PULSE 80–112; RESP 14–20; TEMP 36.1–36.9; O2SAT 88–97
[2020-05-08] MEDS: ALBUTEROL SULFATE (*SP) AEROSOL 1 PUFF 2 PUFF INHALATION (02:26)
[2020-05-08] MEDS: ACETAMINOPHEN 500 MG TABLET PO ×2 (02:31→16:58)
[2020-05-08 02:47] LABS: Alveolar/Arterial O2 Gradient 165.9 mmHg; Base Excess ABG 9.5 mEq/l (+/-2.0); Fractional Inspired Oxygen 40 %; HCO3 ABG 34.6 mEq/l (22.0-26.0); Oxygen Content ABG 12.8 %vol (16.0-22.0); Oxygen Saturation ABG 92.4 % (95.0-100.0); Oxyhemoglobin 89.9 % THb (90.0-100.0); PCO2 ABG 50.1 mmHg (35.0-45.0); PO2 ABG 61.7 mmHg (80.0-100.0); PO2 FiO2 Ratio Arterial Blood 1.54 %; Total Hemoglobin 10.1 g/dL (12.0-18.0); pH ABG 7.457 (7.350-7.450)
[2020-05-08 02:49] LABS: Device NASAL CANNULA; Modified Allen's Test Pass; Site Drawn RIGHT RADIAL
[2020-05-08 05:09] LABS: Basophils Percent Auto 0.3 % (0.2-1.2); Eosinophils Percent Auto 0.1 % (0-4.4); Hematocrit 27.8 % (37.0-47.0); Hemoglobin 9.1 g/dL (12.0-15.0); Immature Granulocyte Absolute 0.05 K/mm3 (0.00-0.031); Immature Granulocyte Percent A 0.5 % (0-0.5); Lymphocytes Absolute Auto 1.66 K/mm3 (0.9-3.2); Lymphocytes Percent Auto 17.5 % (18.3-44.2); Mean Corpuscular HGB Conc 32.7 g/dl (32-36); Mean Corpuscular Hemoglobin 30.6 pg (26-34); Mean Corpuscular Volume 93.6 fl (80-100); Mean Platelet Volume 9.3 fl (7.4-10.4); Monocytes Absolute Auto 1.3 K/mm3 (0.1-0.6); Monocytes Percent Auto 13.1 % (2.6-8.5); Neutrophils Absolute Auto 6.5 K/mm3 (1.3-6.7); Neutrophils Percent Auto 68.5 % (45.5-73.1); Platelet Count Result 118 k/mm3 (150-375); Red Blood Count 2.97 M/mm3 (4.2-5.4); Red Cell Distribution Width 15.1 % (11.5-14.5); White Blood Count 9.5 K/mm3 (4.5-10.0)
[2020-05-08 05:32] LABS: Anion Gap 2.99999 mmol/L (8-16); Blood Urea Nitrogen 11 mg/dL (7-17); Calcium 8.3 mg/dL (8.4-10.2); Carbon Dioxide > 40 mmol/L (22-30); Chloride 91 mmol/L (98-107); Estimated CRCL calculation 99 ml/min; Estimated Glomerular Filt Rate > 60; Glucose 129 mg/dL (65-105); Potassium 3.3 mmol/L (3.4-5.0); Sodium 134 mmol/L (137-145)
[2020-05-08] MEDS: POTASSIUM CHLORIDE 20 MEQ TABLET 40 MEQ PO ×2 (08:43→16:55)
[2020-05-08] MEDS: oxyCODONE HCL (*CRX) 5 MG TAB IR PO ×3 (08:43→22:18)
[2020-05-08] MEDS: ONDANSETRON INJ 4 MG/2 ML VIAL IV PUSH (08:43)
[2020-05-08] MEDS: ESCITALOPRAM OXALATE 10 MG TABLET 20 MG PO (08:44)
[2020-05-08] MEDS: FLUTICASONE PROPIONATE 0.05% NA SPR 16 GM BTL (*BKC) 2 SPRAY NASAL (08:44)
[2020-05-08] MEDS: busPIRone HCL 10 MG TABLET PO ×3 (08:44→16:54)
[2020-05-08] MEDS: DOCUSATE SODIUM 100 MG CAPSULE PO ×2 (08:45→16:54)
[2020-05-08] MEDS: CLOTRIMAZOLE 10 MG TROC PO ×4 (08:45→20:49)
[2020-05-08] MEDS: ACIDOPHILUS/BULGARICUS CHEWABLE TABLET 1 TABLET BY MOUTH (08:45)
[2020-05-08] MEDS: ATORVASTATIN 20 MG TABLET PO (08:45)
[2020-05-08] MEDS: CHOLECALCIFEROL 400 UNITS TABLET (VIT D) PO (08:45)
[2020-05-08] MEDS: GABAPENTIN 100 MG CAPSULE PO ×2 (08:46→16:54)
[2020-05-08] MEDS: amLODIPine BESYLATE 5 MG TABLET PO (08:46)
[2020-05-08] MEDS: predniSONE 5 MG TABLET PO ×2 (08:46→16:55)
[2020-05-08] MEDS: AZELASTINE HCL NASAL 0.1% 137 MCG/SPR 30 ML BTL 2 SPRAY NASAL ×2 (08:46→16:53)
[2020-05-08] MEDS: PANTOPRAZOLE 40 MG TABLET PO (08:47)
[2020-05-08] MEDS: INDAPAMIDE 2.5 MG TABLET PO (08:47)
[2020-05-08] MEDS: THERAPEUTIC MULTIVITAMINS/MINERALS TAB (*BKC) 1 TABLET PO (08:47)
--- NOTE | 2020-05-08 09:14 | PM.PNORT ---
Progress Note: A&P Assessment and Plan (1) Closed subtrochanteric fracture of left femur: Qualifiers: Encounter type: initial encounter Fracture alignment: displaced Qualified Code(s): S72.22XA - Displaced subtrochanteric fracture of left femur, initial encounter for closed fracture Code(s): S72.22XA - Displaced subtrochanteric fracture of left femur, initial encounter for closed fracture Status: Acute Assessment and Plan: POD #2 ORIF Left subtrochanteric femur fracture with long Cephalomedullary nail Patient complaining of pain at her left hip. Nurse reports that patient has been very sleepy. Since getting up to a chair she has been more alert and is cooperating with PT/OT. A&O x3 when I saw patient. Plan to discharge to rehab facility. Consult to TR. Subjective Subjective Date/Time Seen: 05/08/20 09:14 POD#2 ORIF Left subtrochanteric femur fracture with long Cephalomedullary nail Patient resting comfortably in chair. Patient complains of achy hip pain rated at 10/10. No radiating pain. No numbness, tingling, or other associated symptoms. Patient was admitted from the ER on 05/05/20 for definitive treatment of femur fracture. Initial prodrome of pain 2-3 weeks ago. Radiographs were reportedly negative. Then sudden onset of pain while standing up from a seated position. History of rheumatoid arthritis. History of COPD. On supplemental nasal cannula oxygen Review of Systems Review of Systems: Narrative: Denies loss of consciousness. All systems reviewed & are unremarkable except as noted in HPI and below Exam Narrative: Exam Narrative: Patient resting comfortably in chair. Const: General: no acute distress Eyes: General: appearance normal, both eyes and all related structures Resp: Effort & Inspection: able to speak in complete sentences Other: Patient on O2 nasal canula. GI: GI Palp: Yes Soft to palpation and No Guarding due to palpation present (GI) Skin: General skin exam: no rashes or lesions noted Neuro: Speech: normal speech Extrem: Other: Bandage dry and intact. No drainage. Mild tenderness at incision site. No edema. Calf non-tender. Thigh soft. Wiggles toes well. Capillary refill brisk. Distal light touch sensation intact. Dorsalis pedis pulse palpable. Psych: Mental Status: mental status grossly normal Objective Data Vital Signs Vital Signs: Vital Signs - 24 hr 05/07/20 14:00 05/07/20 20:00 05/07/20 20:53 Temperature 97.6 F Pulse Rate 100 96 Respiratory Rate 18 Blood Pressure 138/64 Pulse Oximetry 94 94 88 L 05/07/20 20:57 05/07/20 22:00 05/08/20 02:27 Temperature 97.2 F L Pulse Rate 98 97 96 Respiratory Rate 17 16 Blood Pressure 117/65 Pulse Oximetry 91 94 05/08/20 02:38 05/08/20 03:22 05/08/20 06:00 Temperature 97.1 F L Pulse Rate 100 Respiratory Rate 18 Blood Pressure 128/66 Pulse Oximetry 89 L 88 L 96 Intake/Output Intake/Output: Intake & Output 05/05/20 05/06/20 05/07/20 05/08/20 23:59 23:59 23:59 23:59 Intake Total 695 2980 1465 Output Total 800 1250 1300 1400 Balance -800 -555 1680 65 Meds/Results Medications: Active Medications Generic Name Dose Route Start Last Admin Trade Name Freq PRN Reason Stop Dose Admin Acetaminophen 500 mg 05/06/20 18:00 05/08/20 02:31 Acetaminophen 500 Mg Tablet PO 500 mg Q8H SILAS Administration Albuterol 2 puff 05/06/20 01:24 05/08/20 02:26 Albuterol Sulfate (*Sp) Aerosol 1 Puff INHALATION 2 puff Q4H PRN Administration SHORTNESS OF BREATH Amlodipine Besylate 5 mg 05/06/20 09:00 05/08/20 08:46 Amlodipine Besylate 5 Mg Tablet PO 5 mg DAILY SILAS Administration Atorvastatin Calcium 20 mg 05/06/20 09:00 05/08/20 08:45 Atorvastatin 20 Mg Tablet PO 20 mg DAILY SILAS Administration Azelastine HCl 2 spray 05/06/20 09:00 05/08/20 08:46 Azelastine Hcl Nasal 0.1% 137 Mcg/Spr 30 Ml Btl NASAL 2 spray BID SILAS Admi
--- NOTE | 2020-05-08 11:48 | PM.IMPN ---
Progress Note: A&P Assessment and Plan (1) Closed subtrochanteric fracture of left femur: Qualifiers: Encounter type: initial encounter Fracture alignment: displaced Qualified Code(s): S72.22XA - Displaced subtrochanteric fracture of left femur, initial encounter for closed fracture Code(s): S72.22XA - Displaced subtrochanteric fracture of left femur, initial encounter for closed fracture Status: Acute Assessment and Plan: Pain control as needed. Mcdoanld catheter. ORIF 05/06 POD #2 doing well (2) Hypertension: Qualifiers: Hypertension type: unspecified Qualified Code(s): I10 - Essential (primary) hypertension Code(s): I10 - Essential (primary) hypertension Status: Chronic Assessment and Plan: evalulated 05/08. Continue amlodipine. (3) Rheumatoid arthritis: Qualifiers: Rheumatoid arthritis location: unspecified site Rheumatoid factor presence: unspecified presence Qualified Code(s): M06.9 - Rheumatoid arthritis, unspecified Code(s): M06.9 - Rheumatoid arthritis, unspecified Status: Acute Assessment and Plan: Continue steroid therapy,no stress dose given, humira on hold (4) Leukocytosis: Qualifiers: Leukocytosis type: unspecified Qualified Code(s): D72.829 - Elevated white blood cell count, unspecified Code(s): D72.829 - Elevated white blood cell count, unspecified Status: Acute Assessment and Plan: Likely secondary to stress, continues to fall and 9.5K today (5) Transaminitis: Code(s): R74.01 - Elevation of levels of liver transaminase levels Status: Acute Assessment and Plan: May be secondary to fatty liver disease or even statin, Monitor LFTs. hepatitis profile neg. recheck LFTS am (6) Hyperlipidemia: Qualifiers: Hyperlipidemia type: unspecified Qualified Code(s): E78.5 - Hyperlipidemia, unspecified Code(s): E78.5 - Hyperlipidemia, unspecified Status: Chronic Assessment and Plan: continue statin therapy. (7) Restless leg syndrome: Code(s): G25.81 - Restless legs syndrome Status: Chronic Assessment and Plan: continue pramipexole (8) GERD (gastroesophageal reflux disease): Qualifiers: Esophagitis presence: esophagitis presence not specified Qualified Code(s): K21.9 - Gastro-esophageal reflux disease without esophagitis Code(s): K21.9 - Gastro-esophageal reflux disease without esophagitis Status: Chronic Assessment and Plan: continue PPI therapy (9) Chronic respiratory failure: Qualifiers: Respiratory failure complication: unspecified whether with hypoxia or hypercapnia Qualified Code(s): J96.10 - Chronic respiratory failure, unspecified whether with hypoxia or hypercapnia Code(s): J96.10 - Chronic respiratory failure, unspecified whether with hypoxia or hypercapnia Status: Chronic Assessment and Plan: continue oxygen supplementation, her home 02 rate 4LNC (10) COPD (chronic obstructive pulmonary disease): Qualifiers: COPD type: unspecified COPD Qualified Code(s): J44.9 - Chronic obstructive pulmonary disease, unspecified Code(s): J44.9 - Chronic obstructive pulmonary disease, unspecified Status: Chronic Assessment and Plan: continue bronchodilators (11) Obstructive sleep apnea: Code(s): G47.33 - Obstructive sleep apnea (adult) (pediatric) Status: Chronic Assessment and Plan: continue CPAP. (12) Postoperative anemia: Code(s): D64.9 - Anemia, unspecified Status: Acute Assessment and Plan: , hgb down to 9.1 and continue to follow platelet also low but stable at 118K Subjective Date/time seen: 05/08/20 11:48 Interval history: Date of visit 05/08. 69-year-old hypertensive white female with rheumatoid arthritis and chronic respiratory failure on home O2 present
--- NOTE | 2020-05-08 13:53 | P.CDI_ITS ---
CDI Query Clarification Request - Anemia, post op has been documented -05/05 H&H 12.2/36.6 05/06 H&H 11.3/34.6 05/07 H&H 9.5/29.2 05/08 H&H 9.1/27.8 -Fractured left femur documented with 300 cc EBL documented in surgery Please further specify type/cause and acuity of anemia: * Acute blood loss anemia * Chronic anemia * Acute anemia of other cause * Acute on chronic anemia of other cause * Not clinically significant * Unable to determine <Ariadne Salas RN - Last Filed: 05/08/20 13:58>
--- NOTE | 2020-05-08 13:53 | WPDCDIQUERY2 ---
CDI Query Clarification Request - Anemia, post op has been documented -05/05 H&H 12.2/36.6 05/06 H&H 11.3/34.6 05/07 H&H 9.5/29.2 05/08 H&H 9.1/27.8 -Fractured left femur documented with 300 cc EBL documented in surgery Please further specify type/cause and acuity of anemia: Acute blood loss anemia Chronic anemia Acute anemia of other cause Acute on chronic anemia of other cause Not clinically significant Unable to determine <Ariadne Salas RN - Last Filed: 05/08/20 13:58>
[2020-05-08] MEDS: ALBUTEROL SULFATE NEB 2.5 MG/0.5 ML INH 5 MG INHALATION (15:49)
[2020-05-08 16:41] LABS: SARS-CoV-2 RNA PCR Positive
[2020-05-08] MEDS: RIVAROXABAN 10 MG TABLET PO (16:55)
[2020-05-08] MEDS: DEXAMETHASONE SOD PHOS INJ 4 MG/ML VIAL 6 MG IV PUSH (19:45)
[2020-05-08] MEDS: BENZONATATE 100 MG CAPSULE 200 MG PO (19:45)
[2020-05-08] MEDS: REMDESIVIR 200 MG/NS 250 ML 200 MG/250 ML BAG 250 MG IVPB (19:50)
[2020-05-08] MEDS: PRAMIPEXOLE 0.5 MG TABLET 4.5 MG PO (20:49)
[2020-05-08] MEDS: MONTELUKAST SODIUM 10 MG TABLET PO (20:50)
[2020-05-08] MEDS: traZODone HCL 50 MG TABLET PO (20:51)
[2020-05-08] MEDS: CYCLOBENZAPRINE HCL 5 MG TABLET PO (20:51)
[2020-05-09] VITALS: BP 139/73; PULSE 86; RESP 20; TEMP 36.4; O2SAT 93
[2020-05-09] MEDS: ACETAMINOPHEN 500 MG TABLET PO ×3 (01:23→18:11)
[2020-05-09] MEDS: oxyCODONE HCL (*CRX) 5 MG TAB IR PO ×2 (01:50→18:23)
[2020-05-09 04:00] VITALS: BP 135/76; PULSE 94; RESP 20; TEMP 36.9; O2SAT 95
[2020-05-09 06:56] LABS: Basophils Percent Auto 0.1 % (0.2-1.2); Hematocrit 27.5 % (37.0-47.0); Immature Granulocyte Absolute 0.08 K/mm3 (0.00-0.031); Immature Granulocyte Percent A 0.9 % (0-0.5); Lymphocytes Absolute Auto 0.98 K/mm3 (0.9-3.2); Lymphocytes Percent Auto 11.4 % (18.3-44.2); Mean Corpuscular HGB Conc 32.7 g/dl (32-36); Mean Corpuscular Hemoglobin 30.6 pg (26-34); Mean Corpuscular Volume 93.5 fl (80-100); Mean Platelet Volume 8.9 fl (7.4-10.4); Monocytes Absolute Auto 0.6 K/mm3 (0.1-0.6); Monocytes Percent Auto 7.5 % (2.6-8.5); Neutrophils Absolute Auto 6.9 K/mm3 (1.3-6.7); Neutrophils Percent Auto 80.1 % (45.5-73.1); Nucleated Red Blood Cells Perc 0.2 % (0.0-0.2); Platelet Count Result 159 k/mm3 (150-375); Red Blood Count 2.94 M/mm3 (4.2-5.4); White Blood Count 8.6 K/mm3 (4.5-10.0)
[2020-05-09 07:17] LABS: D Dimer 1.22 ug/mL (<0.48)
[2020-05-09 07:29] LABS: Potassium 3.7 mmol/L (3.4-5.0)
[2020-05-09 07:31] LABS: Alanine Aminotransferase 120 U/L (4-35); Albumin Level 3.4 g/dL (3.5-5.1); Alkaline Phosphatase 73 U/L (38-126); Anion Gap 3.99999 mmol/L (8-16); Aspartate Amino Transferase 209 U/L (14-36); Bilirubin,Total 0.7 mg/dL (0.2-1.3); Blood Urea Nitrogen 16 mg/dL (7-17); CRP 4.2 mg/dL (<1.0); Calcium 8.5 mg/dL (8.4-10.2); Carbon Dioxide > 40 mmol/L (22-30); Chloride 91 mmol/L (98-107); Estimated CRCL calculation 99 ml/min; Estimated Glomerular Filt Rate > 60; Glucose 133 mg/dL (65-105); Lactate Dehydrogenase 1385 U/L (313-618); Sodium 135 mmol/L (137-145)
[2020-05-09 08:00] VITALS: BP 139/69; PULSE 88; PULSE 98; RESP 20; TEMP 35.9; O2SAT 90; O2SAT 91
[2020-05-09 08:55] VITALS: O2SAT 90
[2020-05-09] MEDS: ALBUTEROL SULFATE (*SP) AEROSOL 1 PUFF 2 PUFF INHALATION ×4 (08:57→19:37)
[2020-05-09] MEDS: BENZONATATE 100 MG CAPSULE 200 MG PO ×2 (11:24→18:00)
[2020-05-09] MEDS: ATORVASTATIN 20 MG TABLET PO (11:24)
[2020-05-09] MEDS: amLODIPine BESYLATE 5 MG TABLET PO (11:24)
[2020-05-09] MEDS: ACIDOPHILUS/BULGARICUS CHEWABLE TABLET 1 TABLET BY MOUTH (11:24)
[2020-05-09] MEDS: AZELASTINE HCL NASAL 0.1% 137 MCG/SPR 30 ML BTL 2 SPRAY NASAL ×2 (11:24→17:57)
[2020-05-09] MEDS: busPIRone HCL 10 MG TABLET PO ×2 (11:24→18:00)
[2020-05-09] MEDS: CLOTRIMAZOLE 10 MG TROC PO ×4 (11:25→20:20)
[2020-05-09] MEDS: DOCUSATE SODIUM 100 MG CAPSULE PO ×2 (11:25→18:01)
[2020-05-09] MEDS: CHOLECALCIFEROL 400 UNITS TABLET (VIT D) PO (11:25)
[2020-05-09] MEDS: FLUTICASONE PROPIONATE 0.05% NA SPR 16 GM BTL (*BKC) 2 SPRAY NASAL (11:25)
[2020-05-09] MEDS: ESCITALOPRAM OXALATE 10 MG TABLET 20 MG PO (11:25)
[2020-05-09] MEDS: GABAPENTIN 100 MG CAPSULE PO ×2 (11:25→18:02)
[2020-05-09] MEDS: DEXAMETHASONE SOD PHOS INJ 4 MG/ML VIAL 6 MG IV PUSH (11:25)
[2020-05-09] MEDS: INDAPAMIDE 2.5 MG TABLET PO (11:25)
[2020-05-09] MEDS: THERAPEUTIC MULTIVITAMINS/MINERALS TAB (*BKC) 1 TABLET PO (11:26)
[2020-05-09] MEDS: PANTOPRAZOLE 40 MG TABLET PO (11:26)
[2020-05-09 12:00] VITALS: BP 121/54; PULSE 88; RESP 20; TEMP 36; O2SAT 90
--- NOTE | 2020-05-09 14:39 | PM.PNORT ---
Progress Note: A&P Assessment and Plan (1) Closed subtrochanteric fracture of left femur: Qualifiers: Encounter type: initial encounter Fracture alignment: displaced Qualified Code(s): S72.22XA - Displaced subtrochanteric fracture of left femur, initial encounter for closed fracture Code(s): S72.22XA - Displaced subtrochanteric fracture of left femur, initial encounter for closed fracture Status: Acute Assessment and Plan: POD #3 ORIF Left subtrochanteric femur fracture with long Cephalomedullary nail Patient tested positive for COVID 19. Spoke with patient's nurse and reviewed chart to in order to limit exposure. No fever. Patient on 4 L nasal canula. Per nurse, patient is doing well postoperatively. Dressing intact. No drainage. Pain is controlled with medication. Per PT note, she is participating with PT. Plan to discharge patient to rehab facility. Subjective Subjective Date/Time Seen: 05/09/20 07:30 Post Op day: 3 Principal diagnosis: Left subtrochateric femur fracture Interval history: POD#3 ORIF Left subtrochanteric femur fracture with long Cephalomedullary nail Due to positive COVID test, limiting contact with patient. Spoke with nurse regarding patient. Nurse noted that the patient is doing well postoperatively. Pain controlled. Per PT note, patient is tolerating PT. Patient was admitted from the ER on 05/05/20 for definitive treatment of femur fracture. Initial prodrome of pain 2-3 weeks ago. Radiographs were reportedly negative. Then sudden onset of pain while standing up from a seated position. History of rheumatoid arthritis. History of COPD. On supplemental nasal cannula oxygen Review of Systems Review of Systems: ROS unobtainable: Yes unobtainable due to medical condition Exam Narrative: Exam Narrative: Exam differed to limit positive COVID exposure. Objective Data Vital Signs Vital Signs: Vital Signs - 24 hr 05/08/20 15:56 05/08/20 16:04 05/08/20 19:09 Temperature 97.0 F L Pulse Rate 100 106 H 112 H Respiratory Rate 20 20 20 Blood Pressure 106/82 Pulse Oximetry 97 05/08/20 19:35 05/08/20 20:00 05/09/20 00:00 Temperature 98.4 F 97.5 F L Pulse Rate 97 86 Respiratory Rate 20 20 20 Blood Pressure 115/61 139/73 Pulse Oximetry 92 91 93 05/09/20 04:00 05/09/20 08:00 05/09/20 12:00 Temperature 98.5 F 96.6 F L 96.8 F L Pulse Rate 94 88 88 Respiratory Rate 20 20 20 Blood Pressure 135/76 139/69 121/54 L Pulse Oximetry 95 90 90 Intake/Output Intake/Output: Intake & Output 05/06/20 05/07/20 05/08/20 05/09/20 23:59 23:59 23:59 23:59 Intake Total 695 2980 2235 610 Output Total 1250 1300 1600 Balance -555 1680 635 610 Meds/Results Medications: Active Medications Generic Name Dose Route Start Last Admin Trade Name Freq PRN Reason Stop Dose Admin Acetaminophen 500 mg 05/06/20 18:00 05/09/20 11:26 Acetaminophen 500 Mg Tablet PO 500 mg Q8H SILAS Administration Albuterol 2 puff 05/08/20 20:00 05/09/20 14:28 Albuterol Sulfate (*Sp) Aerosol 1 Puff INHALATION Not Given QIDRT [facility] Amlodipine Besylate 5 mg 05/06/20 09:00 05/09/20 11:24 Amlodipine Besylate 5 Mg Tablet PO 5 mg DAILY SILAS Administration Atorvastatin Calcium 20 mg 05/06/20 09:00 05/09/20 11:24 Atorvastatin 20 Mg Tablet PO 20 mg DAILY SILAS Administration Azelastine HCl 2 spray 05/06/20 09:00 05/09/20 11:24 Azelastine Hcl Nasal 0.1% 137 Mcg/Spr 30 Ml Btl NASAL 2 spray BID SILAS Administration Benzonatate 200 mg 05/08/20 17:00 05/09/20 11:24 Benzonatate 100 Mg Capsule PO 200 mg TID SILAS Administration Budesonide/Formoterol Fumarate 2 puff 05/06/20 08:00 05/09/20 08:58 Budesonide/Form 160-4.5 Mcg (*Sp) INHALATION 2 puff Q12HRT SILAS Administration Buspirone HCl 10 mg 05/06/20 02:00 05/09/20 11:24 Buspirone Hcl 10 Mg Tablet PO 10 mg TID SILAS Administration Clonazepam 0.5 mg 05/06/20 01:24 05/07/20
--- NOTE | 2020-05-09 14:44 | PM.IMPN ---
Progress Note: A&P Assessment and Plan (1) COVID-19: Code(s): U07.1 - COVID-19 Status: Acute Assessment and Plan: Patient was tested for COVID for screening and is positive. She was changed from Prednisone to Dexamethasone and Remdesivir added. CXR showing bilateral interstitial and Airspace disease with progression ini the left mid and lower lung herrmann. LDH 1385, CRP 4.2 and DD 1.22 with normal ferritin. Follow closely. (2) Closed subtrochanteric fracture of left femur: Qualifiers: Encounter type: initial encounter Fracture alignment: displaced Qualified Code(s): S72.22XA - Displaced subtrochanteric fracture of left femur, initial encounter for closed fracture Code(s): S72.22XA - Displaced subtrochanteric fracture of left femur, initial encounter for closed fracture Status: Acute Assessment and Plan: Initial prodrome of pain 2-3 weeks ago. Radiographs were reportedly negative at that time. Had sudden onset of pain while standing up from a seated position that prompted this admission. Post op from ORIF left subtrochanteric femur fracture with long Cephalomedullary nail on 05/06/20. Patient recovering well. Pain controlled. Continue PT/OT. Placement being arranged. (3) Hypertension: Qualifiers: Hypertension type: unspecified Qualified Code(s): I10 - Essential (primary) hypertension Code(s): I10 - Essential (primary) hypertension Status: Chronic Assessment and Plan: Patient's blood pressure was reviewed on 05/09 Blood pressure remains well controlled. Will continue current medications. Continue amlodipine. (4) Rheumatoid arthritis: Qualifiers: Rheumatoid arthritis location: unspecified site Rheumatoid factor presence: unspecified presence Qualified Code(s): M06.9 - Rheumatoid arthritis, unspecified Code(s): M06.9 - Rheumatoid arthritis, unspecified Status: Acute Assessment and Plan: Stable. Continue steroid therapy but changed to Dexamethasone. Humira on hold (5) Leukocytosis: Qualifiers: Leukocytosis type: unspecified Qualified Code(s): D72.829 - Elevated white blood cell count, unspecified Code(s): D72.829 - Elevated white blood cell count, unspecified Status: Acute Assessment and Plan: Likely secondary to stress, fracture and COVID. WBC normal today. (6) Transaminitis: Code(s): R74.01 - Elevation of levels of liver transaminase levels Status: Acute Assessment and Plan: May be secondary to fatty liver disease or even statin. LFTs worse today. Hepatitis profile negative. Possibly related to COVID and/or Remdesivir. Hold statin (7) Hyperlipidemia: Qualifiers: Hyperlipidemia type: unspecified Qualified Code(s): E78.5 - Hyperlipidemia, unspecified Code(s): E78.5 - Hyperlipidemia, unspecified Status: Chronic Assessment and Plan: Stable. Hold statin therapy. (8) Restless leg syndrome: Code(s): G25.81 - Restless legs syndrome Status: Chronic Assessment and Plan: Stable. Continue pramipexole (9) GERD (gastroesophageal reflux disease): Qualifiers: Esophagitis presence: esophagitis presence not specified Qualified Code(s): K21.9 - Gastro-esophageal reflux disease without esophagitis Code(s): K21.9 - Gastro-esophageal reflux disease without esophagitis Status: Chronic Assessment and Plan: Stable. Continue PPI therapy (10) Chronic respiratory failure: Qualifiers: Respiratory failure complication: unspecified whether with hypoxia or hypercapnia Qualified Code(s): J96.10 - Chronic respiratory failure, unspecified whether with hypoxia or hypercapnia Code(s): J96.10 - Chronic respiratory failure, unspecified whether with hypoxia or hypercapnia Status: Chronic Assessment and Plan: Stable. Currentl
[2020-05-09] MEDS: RIVAROXABAN 10 MG TABLET PO (18:03)
[2020-05-09] MEDS: REMDESIVIR 100 MG/NS 250 ML 100 MG/250 ML BAG 250 MG IVPB (18:13)
[2020-05-09 20:00] VITALS: BP 121/57; PULSE 84; RESP 20; TEMP 36.7; O2SAT 92
[2020-05-09] MEDS: traZODone HCL 50 MG TABLET PO (20:20)
[2020-05-09] MEDS: MONTELUKAST SODIUM 10 MG TABLET PO (20:20)
[2020-05-09] MEDS: PRAMIPEXOLE 0.5 MG TABLET 4.5 MG PO (20:20)
[2020-05-09] MEDS: clonazePAM (*CRX) 0.5 MG TABLET PO (20:20)
[2020-05-09] MEDS: CYCLOBENZAPRINE HCL 5 MG TABLET PO (20:20)
[2020-05-10] VITALS: BP 128/73; PULSE 88; RESP 20; TEMP 36.2; O2SAT 95
[2020-05-10] MEDS: oxyCODONE HCL (*CRX) 5 MG TAB IR PO ×4 (01:59→15:15)
[2020-05-10] MEDS: ACETAMINOPHEN 500 MG TABLET PO ×2 (02:02→09:02)
[2020-05-10 04:00] VITALS: BP 111/49; PULSE 79; RESP 20; TEMP 36.3; O2SAT 94
[2020-05-10 06:51] LABS: Basophils Percent Auto 0.1 % (0.2-1.2); Hematocrit 26.5 % (37.0-47.0); Hemoglobin 8.6 g/dL (12.0-15.0); Immature Granulocyte Absolute 0.13 K/mm3 (0.00-0.031); Immature Granulocyte Percent A 1.4 % (0-0.5); Lymphocytes Absolute Auto 1.93 K/mm3 (0.9-3.2); Lymphocytes Percent Auto 20.1 % (18.3-44.2); Mean Corpuscular HGB Conc 32.5 g/dl (32-36); Mean Corpuscular Hemoglobin 30.2 pg (26-34); Mean Platelet Volume 8.8 fl (7.4-10.4); Monocytes Absolute Auto 0.8 K/mm3 (0.1-0.6); Monocytes Percent Auto 8.4 % (2.6-8.5); Neutrophils Absolute Auto 6.7 K/mm3 (1.3-6.7); Nucleated Red Blood Cells Absolute Auto 0.1 K/mm3 (0.0-0.012); Nucleated Red Blood Cells Perc 0.5 % (0.0-0.2); Platelet Count Result 212 k/mm3 (150-375); Red Blood Count 2.85 M/mm3 (4.2-5.4); Red Cell Distribution Width 14.8 % (11.5-14.5); White Blood Count 9.6 K/mm3 (4.5-10.0)
[2020-05-10 07:02] LABS: Alanine Aminotransferase 113 U/L (4-35); Albumin Level 3.4 g/dL (3.5-5.1); Alkaline Phosphatase 72 U/L (38-126); Anion Gap 5.99999 mmol/L (8-16); Aspartate Amino Transferase 167 U/L (14-36); Bilirubin,Total 0.9 mg/dL (0.2-1.3); Blood Urea Nitrogen 18 mg/dL (7-17); CRP 2.3 mg/dL (<1.0); Calcium 8.8 mg/dL (8.4-10.2); Carbon Dioxide > 40 mmol/L (22-30); Chloride 92 mmol/L (98-107); Estimated CRCL calculation 99 ml/min; Estimated Glomerular Filt Rate > 60; Glucose 120 mg/dL (65-105); Lactate Dehydrogenase 1420 U/L (313-618); Potassium 2.9 mmol/L (3.4-5.0); Sodium 138 mmol/L (137-145)
[2020-05-10 07:12] LABS: Iron 35 ug/dL (37-170)
[2020-05-10 07:21] LABS: Percent Iron Saturation 10 % (20-50)
[2020-05-10] MEDS: ALBUTEROL SULFATE (*SP) AEROSOL 1 PUFF 2 PUFF INHALATION ×2 (07:44→12:21)
[2020-05-10 07:46] VITALS: PULSE 90; RESP 18; O2SAT 92
[2020-05-10 08:00] VITALS: BP 122/55; PULSE 69; RESP 20; TEMP 36.4; O2SAT 96
[2020-05-10 08:21] LABS: Folic Acid > 20.0 ng/mL (2.76->20); Vitamin B12 > 1000.0 pg/mL (239-931)
[2020-05-10] MEDS: DOCUSATE SODIUM 100 MG CAPSULE PO (08:58)
[2020-05-10] MEDS: DEXAMETHASONE SOD PHOS INJ 4 MG/ML VIAL 6 MG IV PUSH (08:58)
[2020-05-10] MEDS: POTASSIUM CHLORIDE 20 MEQ TABLET 40 MEQ PO (08:59)
[2020-05-10] MEDS: ACIDOPHILUS/BULGARICUS CHEWABLE TABLET 1 TABLET BY MOUTH (08:59)
[2020-05-10] MEDS: amLODIPine BESYLATE 5 MG TABLET PO (09:00)
[2020-05-10] MEDS: AZELASTINE HCL NASAL 0.1% 137 MCG/SPR 30 ML BTL 2 SPRAY NASAL (09:00)
[2020-05-10] MEDS: BENZONATATE 100 MG CAPSULE 200 MG PO ×2 (09:00→12:35)
[2020-05-10] MEDS: GABAPENTIN 100 MG CAPSULE PO (09:01)
[2020-05-10] MEDS: ESCITALOPRAM OXALATE 10 MG TABLET 20 MG PO (09:01)
[2020-05-10] MEDS: FLUTICASONE PROPIONATE 0.05% NA SPR 16 GM BTL (*BKC) 2 SPRAY NASAL (09:01)
[2020-05-10] MEDS: busPIRone HCL 10 MG TABLET PO ×2 (09:01→12:35)
[2020-05-10] MEDS: CHOLECALCIFEROL 400 UNITS TABLET (VIT D) PO (09:01)
[2020-05-10] MEDS: INDAPAMIDE 2.5 MG TABLET PO (09:02)
[2020-05-10] MEDS: THERAPEUTIC MULTIVITAMINS/MINERALS TAB (*BKC) 1 TABLET PO (09:02)
[2020-05-10] MEDS: PANTOPRAZOLE 40 MG TABLET PO (09:02)
[2020-05-10] MEDS: CLOTRIMAZOLE 10 MG TROC PO ×2 (09:02→12:35)
[2020-05-10 12:00] VITALS: BP 109/54; PULSE 77; RESP 20; TEMP 36.9; O2SAT 94
--- NOTE | 2020-05-10 13:49 | PM.DS ---
DS: Admitting Diagnosis Admitting Diagnosis Admitting Diagnosis: L hip fx DS: Discharge Diagnosis Discharge Diagnosis (1) COVID-19: Code(s): U07.1 - COVID-19 Status: Acute Assessment and Plan: Patient was tested for COVID for screening and is positive. She was changed from Prednisone to Dexamethasone and Remdesivir added. CXR on admission showing pulmonary vascular congestion with repeat CXR 05/09 showing bilateral interstitial and airspace disease with progression ini the left mid and lower lung herrmann. CXR 05/10 showing stable findings. LDH 1385 that increased but CRP 4.2 and decreased. Ferritin was normal. Remained on 4L. She clinically appears well. Will discharge on Dexamethasone. She is going to [place] who can watch her closely. Okay to stop Remdesivir since efficacy is questionable. (2) Closed subtrochanteric fracture of left femur: Qualifiers: Encounter type: initial encounter Fracture alignment: displaced Qualified Code(s): S72.22XA - Displaced subtrochanteric fracture of left femur, initial encounter for closed fracture Code(s): S72.22XA - Displaced subtrochanteric fracture of left femur, initial encounter for closed fracture Status: Acute Assessment and Plan: Initial prodrome of pain 2-3 weeks ago. Radiographs were reportedly negative at that time. Had sudden onset of pain while standing up from a seated position that prompted this admission. Xray showing significant displacement and angulation of a subacute subtrochanteric fracture of the proximal left femur. Post op from ORIF left subtrochanteric femur fracture with long Cephalomedullary nail on 05/06/20. Patient recovering well. Pain controlled. She did well with PT/OT. Placement arranged. (3) Hypertension: Qualifiers: Hypertension type: unspecified Qualified Code(s): I10 - Essential (primary) hypertension Code(s): I10 - Essential (primary) hypertension Status: Chronic Assessment and Plan: Patient's blood pressure was monitored closley Blood pressure remains well controlled. We continued amlodipine. (4) Rheumatoid arthritis: Qualifiers: Rheumatoid arthritis location: unspecified site Rheumatoid factor presence: unspecified presence Qualified Code(s): M06.9 - Rheumatoid arthritis, unspecified Code(s): M06.9 - Rheumatoid arthritis, unspecified Status: Acute Assessment and Plan: Stable. We continued steroid therapy but changed to Dexamethasone. Humira on hold. (5) Leukocytosis: Qualifiers: Leukocytosis type: unspecified Qualified Code(s): D72.829 - Elevated white blood cell count, unspecified Code(s): D72.829 - Elevated white blood cell count, unspecified Status: Acute Assessment and Plan: Likely secondary to stress, fracture and COVID. WBC normal now. (6) Transaminitis: Code(s): R74.01 - Elevation of levels of liver transaminase levels Status: Acute Assessment and Plan: May be secondary to fatty liver disease or even statin. AST and ALT peaked at 209 and 120 respectfully. Hepatitis profile negative. Possibly related to COVID and/or Remdesivir. Statin held. Repeat levels as outpatient. (7) Hyperlipidemia: Qualifiers: Hyperlipidemia type: unspecified Qualified Code(s): E78.5 - Hyperlipidemia, unspecified Code(s): E78.5 - Hyperlipidemia, unspecified Status: Chronic Assessment and Plan: Stable. Hold statin therapy. (8) Restless leg syndrome: Code(s): G25.81 - Restless legs syndrome Status: Chronic Assessment and Plan: Stable. We continued pramipexole (9) GERD (gastroesophageal reflux disease): Qualifiers: Esophagitis presence: esophagitis presence not specified Qualified Code(s): K21.9 - Gastro-esophageal reflux disease without esophagitis Code(s): K21.9 - Gastro-es
== END 2020-05-10 16:37 | disposition swing bed (61) | DRG 480 ==
LOC: ANHED 22:44 → ANH2MED 22:59 → ANH3MEDSUR 05-09 00:25 → ANH2MED 05-12 12:55
PROVIDERS: Internal Medicine; Orthopaedic Surgery; Admitting Provider Family Medicine; Emergency Provider Emergency Medicine; PCP Internal Medicine Geriatric Medicine; Visit Provider Internal Medicine
PROC: (CPT 27245; principal; 2020-05-06 10:00)
DX: S72.22XA Displaced subtrochanteric fracture of left femur, initial encounter for closed fracture (principal); U07.1 COVID-19; J96.10 Chronic respiratory failure, unspecified whether with hypoxia or hypercapnia; D62 Acute posthemorrhagic anemia; W19.XXXA Unspecified fall, initial encounter; Y93.9 Activity, unspecified; Y92.9 Unspecified place or not applicable; Y99.9 Unspecified external cause status; I10 Essential (primary) hypertension; M06.9 Rheumatoid arthritis, unspecified; J44.9 Chronic obstructive pulmonary disease, unspecified; D72.829 Elevated white blood cell count, unspecified; K21.9 Gastro-esophageal reflux disease without esophagitis; E78.5 Hyperlipidemia, unspecified; G47.33 Obstructive sleep apnea (adult) (pediatric); G25.81 Restless legs syndrome; K76.0 Fatty (change of) liver, not elsewhere classified; T38.0X5A Adverse effect of glucocorticoids and synthetic analogues, initial encounter; R74.01 Elevation of levels of liver transaminase levels; R05 Cough; Z99.81 Dependence on supplemental oxygen
CPT/HCPCS: 36415; 36600; 51702; 71045; 73502; 80048; 80053; 80074; 80076; 81001; 82607; 82728; 82746; 82805; 83540; 83550; 83615; 85025; 85380; 85610; 85730; 86140; 86850; 86900; 86901; 87635; 93005; 94640; 94660; 96361; 96365; 96375; 96376; 97110; 97116; 97162; 97165; 97530; 97535; 99285; A9270; C1713; C1769; C9803; G0378; J0131; J0690; J1100; J2270; J2370; J2405; J2704; J3010; J3480; J7120; J7512; U0003

== ENCOUNTER 2020-05-10 17:24 | Inpatient (IN) | payer MEDICARE, SELFPAY ==
[2020-05-10 17:50] VITALS: BP 139/70; PULSE 90; RESP 20; TEMP 36.5; O2SAT 91
[2020-05-10 17:55] VITALS: PULSE 90; RESP 20; O2SAT 91
--- NOTE | 2020-05-10 17:58 | PM.IMHP ---
H&P: HPI History of Present Illness Date/Time: 05/10/20 17:58 Chief complaint: covid Narrative: Estefany Loja is a 69 year old female with a history of severe rheumatoid arthritis, chronic respiratory failure from COPD, and hypertension presented [facility] on 05/06 with severe pain in her left hip while getting up off the toilet. She denies falling except for an episode 3 weeks prior to presentation. She had been using a walker and a wheelchair at home. She was found to have a left hip fracture and had ORIF of her left hip with a long cephalomedullary nail on 05/07. She was placed on Xarelto and has been WBAT with a walker since. She had mild decrease in her pulse oximetry and was found to be Covid positive. Patient states that she had no symptoms. She was started on dexamethasone and remdesivir. She continues on 4 L of oxygen by nasal cannula as she was using at home. Review of Systems Constitutional: Constitutional: Denies chills, Denies fever(s), Denies headache(s) and Reports weight loss Comments: Decreased appetite since admission Eyes: Eyes: Denies blurry vision, Denies change in vision and Denies diplopia ENT: Denies lip swelling, Denies nasal congestion, Denies nasal discharge, Denies sore throat and Denies throat swelling Cardiovascular: Cardiovascular: Denies chest pain, Denies diaphoresis, Denies syncope, Denies rapid heart rate, Denies edema and Denies orthopnea Respiratory: Respiratory: Denies change in phlegm color, Reports cough ( as per usual), Denies excessive phlegm production, Reports dyspnea ( as per usual), Reports dyspnea on exertion and Denies wheezing Gastrointestinal: Gastrointestinal: Denies abdominal pain, Denies diarrhea, Denies nausea and Denies vomiting Genitourinary: Genitourinary: Denies nocturia, Denies dysuria and Reports urinary incontinence Musculoskeletal: Musculoskeletal: Reports arthralgias ( mild at left hip) Integumentary/Breasts: Skin/Breast: Denies pruritus, Denies lesions, Denies rash and Denies wounds Neurologic: Denies headache(s), Denies focal weakness and Denies numbness Hematologic/Lymphatic: Hematologic/Lymphatic: Denies easy bleeding and Denies easy bruising Allergic/Immunologic: Allergic/Immunologic: Denies urticaria, Denies lip swelling and Denies tongue swelling PMFSH Past Medical History Medical History (Updated 05/10/20 @ 21:56 by Chandler Pierre MD) Chronic respiratory failure COPD (chronic obstructive pulmonary disease) GERD (gastroesophageal reflux disease) Hyperlipidemia Hypertension Obstructive sleep apnea Restless leg syndrome Rheumatoid arthritis Surgical History Surgical History (Updated 05/10/20 @ 18:09 by Chandler Pierre MD) H/O cervical spine surgery History of knee replacement Previous back surgery Family History Family History Sibling Lung cancer Social History Social History Smoking status: Never smoker Alcohol intake: unknown Drinks per week: 1 Substance use: unknown Substance use type: does not use Gender identity (if verbalized by the patient): Female Sexual Orientation (if Verbalized by the Patient): Straight or Heterosexual Spiritual care concerns: No Meds Home Medications and Allergies Home Medications Medication Instructions Recorded Confirmed Type albuterol sulfate 2 puff INHALATION Q4H PRN 05/05/20 05/10/20 History amlodipine 5 mg PO DAILY 05/05/20 05/10/20 History atorvastatin 20 mg PO DAILY 05/05/20 05/10/20 History azelastine 137 mcg INTRANASAL BID 05/05/20 05/10/20 History buspirone 10 mg PO TID 05/05/20 05/10/20 History celecoxib 200 mg PO BID 05/05/20 05/10/20 History clonazepam 0.5 mg PO DAILY PRN 05/05/20 05/10/20 History clotrimazole 10 mg PO QID 05/05/20 05/10/20 History cyclobenzaprine 5 mg PO HS 05/05/20 05/10/20 History escitalopram oxalate 20 mg PO DAILY 05/05/20
[2020-05-10 18:21] VITALS: PULSE 90; RESP 20; O2SAT 91
[2020-05-10 18:23] VITALS: BMI 33.2
[2020-05-10 20:00] VITALS: PULSE 80; RESP 20; O2SAT 95
[2020-05-10] MEDS: ALBUTEROL SULFATE (*SP) INHALER 4 PUFF INHALATION (21:13)
[2020-05-10] MEDS: traZODone HCL 50 MG TABLET PO (21:14)
[2020-05-10] MEDS: clonazePAM (*CRX) 0.5 MG TABLET PO (21:14)
[2020-05-10] MEDS: CYCLOBENZAPRINE HCL 5 MG TABLET PO (21:14)
[2020-05-10] MEDS: MONTELUKAST SODIUM 10 MG TABLET PO (21:14)
[2020-05-10] MEDS: oxyCODONE/ACETAMINOPHEN (*CRX) 5-325 MG TABLET 1 TABLET PO (21:14)
[2020-05-10] MEDS: PRAMIPEXOLE 1 MG TABLET 4.5 MG PO (21:33)
[2020-05-10] MEDS: POTASSIUM CHLORIDE 20 MEQ PACKET (FOR LIQUID) 40 MEQ (22:50)
[2020-05-11] VITALS: BP 133/72; PULSE 78; RESP 20; TEMP 36.2; O2SAT 96
[2020-05-11] MEDS: oxyCODONE/ACETAMINOPHEN (*CRX) 5-325 MG TABLET 1 TABLET PO ×4 (03:13→22:01)
[2020-05-11] MEDS: ALBUTEROL SULFATE (*SP) INHALER 4 PUFF INHALATION ×4 (06:00→19:52)
[2020-05-11 07:22] LABS: Anion Gap 7 mmol/L (8-16); Blood Urea Nitrogen 20 mg/dL (7-18); Calcium 8.8 mg/dL (8.5-10.1); Carbon Dioxide 33 mmol/L (21-32); Chloride 100 mmol/L (98-108); Estimated CRCL calculation 61 ml/min; Estimated Glomerular Filt Rate > 60; Glucose 98 mg/dL (70-99); Osmolality Calculated 292 mOsm/kg (285-295); Potassium 3.3 mmol/L (3.5-5.1); Sodium 140 mmol/L (136-145)
[2020-05-11 07:40] VITALS: BP 132/98; PULSE 93; RESP 18; TEMP 36.3; O2SAT 96
--- NOTE | 2020-05-11 08:25 | PM.IMPN ---
Progress Note: A&P Assessment and Plan (1) COVID-19: Code(s): U07.1 - COVID-19 <Ricky Amato DAKOTA Pena-C - Last Filed: 05/11/20 11:48> Status: Acute <Ricky WashburnJOEL solerN-C - Last Filed: 05/11/20 11:48> Assessment and Plan: Remdesivir held, Continue dexamethasone. She was admitted on prednisone for RA. 05/11/2020 currently monitoring ALT which is trending down, INR normal, continue with Decadron with end date being May 17, 2020, patient remains asymptomatic <Ricky FloresAdrianne Pena APN-C - Last Filed: 05/11/20 11:48> (2) Postoperative anemia: Code(s): D64.9 - Anemia, unspecified <Ricky FloresAdrianne Pena APN-C - Last Filed: 05/11/20 11:48> Status: Acute <Ricky FloresAdrianne Pena APN-C - Last Filed: 05/11/20 11:48> Assessment and Plan: Monitor for changes. 05/11/2020 H/ H improved today 8.8/27.8, will continue to monitor, as noted assessment surgical site has minor drainage <Ricky FloresAdrianne Pena APN-C - Last Filed: 05/11/20 11:48> (3) Obstructive sleep apnea: Code(s): G47.33 - Obstructive sleep apnea (adult) (pediatric) <Ricky FloresAdrianne Pena APN-C - Last Filed: 05/11/20 11:48> Status: Chronic <Ricky MarkAdrianne Pena APN-C - Last Filed: 05/11/20 11:48> Assessment and Plan: Home CPAP/ BiPAP at home settings. 05/11/2020 patient has home CPAP brought in from home today, patient was using this at her home settings <Ricky MarkAdrianne Pena APN-C - Last Filed: 05/11/20 11:48> (4) COPD (chronic obstructive pulmonary disease): Qualifiers: COPD type: unspecified COPD Qualified Code(s): J44.9 - Chronic obstructive pulmonary disease, unspecified <Ricky MarkAdrianne Pena APN-C - Last Filed: 05/11/20 11:48> Code(s): J44.9 - Chronic obstructive pulmonary disease, unspecified <JOEL HannahN-C - Last Filed: 05/11/20 11:48> Status: Chronic <Ricky Pena APN-C - Last Filed: 05/11/20 11:48> Assessment and Plan: Continue nebs and MDIs. Will monitor closely for signs of decompensation. 05/11/2020 chronic and stable condition, continue with home medication or equivalent that is in formulary, monitor condition make changes as necessary <JOEL HannahN-C - Last Filed: 05/11/20 11:48> (5) GERD (gastroesophageal reflux disease): Qualifiers: Esophagitis presence: esophagitis presence not specified Qualified Code(s): K21.9 - Gastro-esophageal reflux disease without esophagitis <Ricky Pena APN-C - Last Filed: 05/11/20 11:48> Code(s): K21.9 - Gastro-esophageal reflux disease without esophagitis <Ricky Pena APN-C - Last Filed: 05/11/20 11:48> Status: Chronic <Ricky Pena APN-C - Last Filed: 05/11/20 11:48> Assessment and Plan: Continue PPI. 05/11/2020 continue with home medications <Ricky Pena APN-C - Last Filed: 05/11/20 11:48> (6) Transaminitis: Code(s): R74.01 - Elevation of levels of liver transaminase levels <Ricky Pena [employer] SUPERVISOR-C - Last Filed: 05/11/20 11:48> Status: Acute <Ricky Pena APN-C - Last Filed: 05/11/20 11:48> Assessment and Plan: Will monitor for resolution. 05/11/2020 as noted above under COVID-19 positive will be monitoring for ALT currently trending down <Ricky Pena [employer] SUPERVISOR-C - Last Filed: 05/11/20 11:48> (7) Closed subtrochanteric fracture of left femur: Qualifiers: Encounter type: initial encounter Fracture alignment: displaced Qualified Code(s): S72.22XA - Displaced subtrochanteric fracture of left femur, initial encounter for closed fracture <PARTH Hannah - Last Filed: 05/11/20 11:48> Code(s): S72.22XA - Displaced subtrochanteric fracture of left femur, initial encounter for closed fracture <PARTH Hannah - Last Filed: 05/11/20 11:48> Status: Acute <PARTH Hannah - Last Filed: 05/11/20 11:48> Ass
[2020-05-11 08:27] LABS: Basophils Absolute Auto 0.01 K/mm3 (0.00-0.10); Basophils Percent Auto 0.1 % (0.0-1.0); Hematocrit 27.8 % (35.0-42.0); Hemoglobin 8.8 g/dL (11.7-13.8); Immature Granulocyte Absolute 0.24 K/mm3 (0.00-0.00); Immature Granulocyte Percent A 2.4 % (0.0-0.0); Lymphocytes Absolute Auto 2.95 K/mm3 (1.10-4.50); Lymphocytes Percent Auto 28.9 % (18.0-42.0); Mean Corpuscular HGB Conc 31.7 g/dL (32.0-36.0); Mean Corpuscular Hemoglobin 30.8 pg (27.0-31.0); Mean Corpuscular Volume 97.2 fL (78.0-102.0); Mean Platelet Volume 8.8 fl (9.2-11.8); Monocytes Percent Auto 11.8 % (2.0-11.0); Neutrophils Absolute Auto 5.8 K/mm3 (1.7-7.2); Neutrophils Percent Auto 56.8 % (50.0-70.0); Nucleated Red Blood Cells Absolute Auto 0.08 K/mm3 (0.00-0.00); Nucleated Red Blood Cells Perc 0.8 % (0-0.0); Platelet Count Result 263 K/mm3 (150-420); Red Blood Count 2.86 M/mm3 (4.20-5.40); Red Cell Distribution Width 15.2 % (11.6-14.4); White Blood Count 10.2 K/mm3 (4.8-10.8)
[2020-05-11 08:32] LABS: Alanine Aminotransferase 113 U/L (14-59)
[2020-05-11 08:34] LABS: Prothrombin Time 11.3 Seconds (9.50-12.10)
[2020-05-11] MEDS: DEXAMETHASONE 4 MG TABLET 6 MG PO (09:12)
[2020-05-11] MEDS: busPIRone HCL 5 MG TABLET 10 MG PO ×3 (09:12→18:07)
[2020-05-11] MEDS: CHOLECALCIFEROL 400 UNITS TABLET (VIT D) PO (09:12)
[2020-05-11] MEDS: ATORVASTATIN 10 MG TABLET 20 MG PO (09:12)
[2020-05-11] MEDS: CELECOXIB 100 MG CAPSULE 200 MG PO ×2 (09:12→18:06)
[2020-05-11] MEDS: ESCITALOPRAM OXALATE 10 MG TABLET 20 MG PO (09:12)
[2020-05-11] MEDS: amLODIPine BESYLATE 5 MG TABLET PO (09:12)
[2020-05-11] MEDS: INDAPAMIDE 2.5 MG TABLET PO (09:13)
[2020-05-11] MEDS: GABAPENTIN 100 MG CAPSULE PO ×2 (09:13→18:07)
[2020-05-11] MEDS: POTASSIUM CHLORIDE 20 MEQ PACKET (FOR LIQUID) 40 MEQ PO (09:13)
[2020-05-11] MEDS: PANTOPRAZOLE 40 MG TABLET PO ×2 (09:13→18:07)
[2020-05-11] MEDS: SACCHAROMYCES BOULARDII 250 MG CAPSULE PO ×2 (10:31→18:09)
[2020-05-11 16:45] VITALS: BP 128/78; PULSE 92; RESP 18; TEMP 36.6; O2SAT 95
[2020-05-11] MEDS: FERROUS SULFATE 324 MG TABLET PO (18:07)
[2020-05-11] MEDS: RIVAROXABAN 10 MG TABLET PO (18:12)
[2020-05-11] MEDS: PRAMIPEXOLE 0.25 MG TABLET PO (19:53)
[2020-05-11] MEDS: CYCLOBENZAPRINE HCL 5 MG TABLET PO (19:53)
[2020-05-11] MEDS: ACETAMINOPHEN 500 MG TABLET PO (19:53)
[2020-05-11] MEDS: MONTELUKAST SODIUM 10 MG TABLET PO (19:53)
[2020-05-11] MEDS: traZODone HCL 50 MG TABLET PO (19:54)
[2020-05-11] MEDS: clonazePAM (*CRX) 0.5 MG TABLET PO (19:54)
[2020-05-12] VITALS: BP 123/64; PULSE 90; RESP 18; TEMP 37.2; O2SAT 96
[2020-05-12] MEDS: oxyCODONE/ACETAMINOPHEN (*CRX) 5-325 MG TABLET 1 TABLET PO ×4 (03:54→23:53)
[2020-05-12 05:13] LABS: Hemoglobin 8.4 g/dL (11.7-13.8); Mean Corpuscular HGB Conc 32.3 g/dL (32.0-36.0); Mean Corpuscular Hemoglobin 31.1 pg (27.0-31.0); Mean Corpuscular Volume 96.3 fL (78.0-102.0); Mean Platelet Volume 8.4 fl (9.2-11.8); Platelet Count Result 247 K/mm3 (150-420); Red Cell Distribution Width 15.2 % (11.6-14.4); White Blood Count 12.1 K/mm3 (4.8-10.8)
[2020-05-12 05:27] LABS: Alanine Aminotransferase 103 U/L (14-59); Anion Gap 7 mmol/L (8-16); Blood Urea Nitrogen 20 mg/dL (7-18); Calcium 8.6 mg/dL (8.5-10.1); Carbon Dioxide 32 mmol/L (21-32); Chloride 100 mmol/L (98-108); Estimated CRCL calculation 59 ml/min; Estimated Glomerular Filt Rate > 60; Glucose 110 mg/dL (70-99); Osmolality Calculated 291 mOsm/kg (285-295); Potassium 3.1 mmol/L (3.5-5.1); Sodium 139 mmol/L (136-145)
[2020-05-12] MEDS: ALBUTEROL SULFATE (*SP) INHALER 4 PUFF INHALATION ×4 (05:33→20:22)
[2020-05-12] MEDS: INDAPAMIDE 2.5 MG TABLET PO (08:10)
[2020-05-12] MEDS: POTASSIUM CHLORIDE 20 MEQ PACKET (FOR LIQUID) 40 MEQ PO ×2 (08:10→16:38)
[2020-05-12] MEDS: CELECOXIB 100 MG CAPSULE 200 MG PO ×2 (08:10→16:37)
[2020-05-12] MEDS: ESCITALOPRAM OXALATE 10 MG TABLET 20 MG PO (08:10)
[2020-05-12] MEDS: amLODIPine BESYLATE 5 MG TABLET PO (08:11)
[2020-05-12] MEDS: DEXAMETHASONE 4 MG TABLET 6 MG PO (08:11)
[2020-05-12] MEDS: busPIRone HCL 5 MG TABLET 10 MG PO ×3 (08:11→16:37)
[2020-05-12] MEDS: FERROUS SULFATE 324 MG TABLET PO ×2 (08:11→16:36)
[2020-05-12] MEDS: ATORVASTATIN 10 MG TABLET 20 MG PO (08:11)
[2020-05-12] MEDS: CHOLECALCIFEROL 400 UNITS TABLET (VIT D) PO (08:12)
[2020-05-12] MEDS: SACCHAROMYCES BOULARDII 250 MG CAPSULE PO ×2 (08:12→16:36)
[2020-05-12] MEDS: GABAPENTIN 100 MG CAPSULE PO ×2 (08:12→16:37)
[2020-05-12] MEDS: PANTOPRAZOLE 40 MG TABLET PO ×2 (08:12→16:37)
[2020-05-12 08:15] VITALS: BP 137/79; PULSE 81; RESP 18; TEMP 36.6; O2SAT 97
--- NOTE | 2020-05-12 13:38 | PM.EVENT ---
Event Note Event Note Event Note: Patient updated on plan of care informed that her kell will be removed 05/21/2020. Also informed that she would need to follow-up with her surgeon Dr. Tellez 2 weeks after discharge. Patient informed that her remesivir was discontinued due to her elevated ALT enzymes. patient educated on how this program works. She has no other questions at this time. Patient labs and vital signs reviewed
[2020-05-12] MEDS: RIVAROXABAN 10 MG TABLET PO (16:38)
[2020-05-12 16:40] VITALS: BP 135/87; PULSE 87; RESP 18; TEMP 36.9; O2SAT 98
[2020-05-12] MEDS: PRAMIPEXOLE 0.25 MG TABLET PO (20:22)
[2020-05-12] MEDS: traZODone HCL 50 MG TABLET PO (20:22)
[2020-05-12] MEDS: CYCLOBENZAPRINE HCL 5 MG TABLET PO (20:22)
[2020-05-12] MEDS: MONTELUKAST SODIUM 10 MG TABLET PO (20:22)
[2020-05-12] MEDS: clonazePAM (*CRX) 0.5 MG TABLET PO (20:22)
[2020-05-12 23:58] VITALS: BP 122/74; PULSE 94; RESP 18; TEMP 36.9; O2SAT 96
[2020-05-13 05:48] LABS: Alanine Aminotransferase 101 U/L (14-59)
[2020-05-13] MEDS: ALBUTEROL SULFATE (*SP) INHALER 4 PUFF INHALATION ×2 (05:53→10:30)
[2020-05-13 08:00] VITALS: BP 150/90; PULSE 89; RESP 20; TEMP 36.3; O2SAT 96
[2020-05-13] MEDS: POTASSIUM CHLORIDE 20 MEQ PACKET (FOR LIQUID) 40 MEQ PO (08:22)
[2020-05-13] MEDS: amLODIPine BESYLATE 5 MG TABLET PO (08:22)
[2020-05-13] MEDS: CELECOXIB 100 MG CAPSULE 200 MG PO ×2 (08:22→17:14)
[2020-05-13] MEDS: SACCHAROMYCES BOULARDII 250 MG CAPSULE PO ×2 (08:22→17:14)
[2020-05-13] MEDS: ATORVASTATIN 10 MG TABLET 20 MG PO (08:23)
[2020-05-13] MEDS: PANTOPRAZOLE 40 MG TABLET PO ×2 (08:23→17:14)
[2020-05-13] MEDS: busPIRone HCL 5 MG TABLET 10 MG PO ×3 (08:23→17:13)
[2020-05-13] MEDS: ESCITALOPRAM OXALATE 10 MG TABLET 20 MG PO (08:23)
[2020-05-13] MEDS: FERROUS SULFATE 324 MG TABLET PO ×2 (08:23→17:14)
[2020-05-13] MEDS: CHOLECALCIFEROL 400 UNITS TABLET (VIT D) PO (08:23)
[2020-05-13] MEDS: GABAPENTIN 100 MG CAPSULE PO ×2 (08:23→17:14)
[2020-05-13] MEDS: INDAPAMIDE 2.5 MG TABLET PO (08:23)
[2020-05-13] MEDS: DEXAMETHASONE 4 MG TABLET 6 MG PO (08:24)
[2020-05-13] MEDS: clonazePAM (*CRX) 0.5 MG TABLET PO ×2 (09:00→21:02)
[2020-05-13] MEDS: oxyCODONE/ACETAMINOPHEN (*CRX) 5-325 MG TABLET 1 TABLET PO ×3 (09:00→20:58)
[2020-05-13 16:00] VITALS: BP 126/82; PULSE 102; RESP 20; TEMP 36.3; O2SAT 96
[2020-05-13] MEDS: PRAMIPEXOLE 0.25 MG TABLET PO (17:14)
[2020-05-13] MEDS: RIVAROXABAN 10 MG TABLET PO (17:16)
[2020-05-13] MEDS: CYCLOBENZAPRINE HCL 5 MG TABLET PO (20:58)
[2020-05-13] MEDS: MONTELUKAST SODIUM 10 MG TABLET PO (21:01)
[2020-05-13] MEDS: traZODone HCL 50 MG TABLET PO (21:01)
--- NOTE | 2020-05-13 22:32 | PC.NURSE ---
pt asks for another dose of her rls medication, none ordered until morning dose, awaiting call back from
[2020-05-13] MEDS: PRAMIPEXOLE 0.25 MG TABLET 0.125 MG PO (23:54)
[2020-05-14] VITALS: BP 132/74; PULSE 73; RESP 18; TEMP 35.1; O2SAT 93
[2020-05-14] MEDS: oxyCODONE/ACETAMINOPHEN (*CRX) 5-325 MG TABLET 1 TABLET PO ×3 (03:19→18:19)
[2020-05-14 05:57] LABS: Alanine Aminotransferase 90 U/L (14-59)
[2020-05-14] MEDS: ALBUTEROL SULFATE (*SP) INHALER 4 PUFF INHALATION ×4 (06:04→20:55)
[2020-05-14 08:00] VITALS: BP 133/79; PULSE 73; PULSE 94; RESP 16; RESP 18; TEMP 37.2; O2SAT 93; O2SAT 96
[2020-05-14] MEDS: INDAPAMIDE 2.5 MG TABLET PO (08:16)
[2020-05-14] MEDS: ESCITALOPRAM OXALATE 10 MG TABLET 20 MG PO (08:16)
[2020-05-14] MEDS: busPIRone HCL 5 MG TABLET 10 MG PO ×3 (08:16→17:09)
[2020-05-14] MEDS: CHOLECALCIFEROL 400 UNITS TABLET (VIT D) PO (08:16)
[2020-05-14] MEDS: FERROUS SULFATE 324 MG TABLET PO ×2 (08:16→17:10)
[2020-05-14] MEDS: PANTOPRAZOLE 40 MG TABLET PO ×2 (08:16→17:11)
[2020-05-14] MEDS: PRAMIPEXOLE 0.25 MG TABLET PO (08:16)
[2020-05-14] MEDS: GABAPENTIN 100 MG CAPSULE PO ×2 (08:16→17:10)
[2020-05-14] MEDS: ATORVASTATIN 10 MG TABLET 20 MG PO (08:17)
[2020-05-14] MEDS: DEXAMETHASONE 4 MG TABLET 6 MG PO (08:17)
[2020-05-14] MEDS: amLODIPine BESYLATE 5 MG TABLET PO (08:17)
[2020-05-14] MEDS: CELECOXIB 100 MG CAPSULE 200 MG PO ×2 (08:17→17:09)
[2020-05-14] MEDS: SACCHAROMYCES BOULARDII 250 MG CAPSULE PO ×2 (08:18→17:08)
[2020-05-14 09:52] LABS: Hematocrit 31.7 % (35.0-42.0); Hemoglobin 10.2 g/dL (11.7-13.8); Mean Corpuscular HGB Conc 32.2 g/dL (32.0-36.0); Mean Corpuscular Volume 96.4 fL (78.0-102.0); Mean Platelet Volume 8.6 fl (9.2-11.8); Platelet Count Result 353 K/mm3 (150-420); Red Blood Count 3.29 M/mm3 (4.20-5.40); Red Cell Distribution Width 16.5 % (11.6-14.4); White Blood Count 14.2 K/mm3 (4.8-10.8)
[2020-05-14 10:02] LABS: Anion Gap 12 mmol/L (8-16); Blood Urea Nitrogen 21 mg/dL (7-18); Calcium 9.3 mg/dL (8.5-10.1); Carbon Dioxide 27 mmol/L (21-32); Chloride 97 mmol/L (98-108); Estimated CRCL calculation 53 ml/min; Estimated Glomerular Filt Rate > 60; Glucose 179 mg/dL (70-99); Osmolality Calculated 289 mOsm/kg (285-295); Potassium 2.9 mmol/L (3.5-5.1); Sodium 136 mmol/L (136-145)
[2020-05-14 10:04] LABS: Magnesium 1.7 mg/dL (1.8-2.4)
[2020-05-14] MEDS: POTASSIUM CHLORIDE 20 MEQ TABLET 40 MEQ PO ×3 (12:11→17:12)
--- NOTE | 2020-05-14 14:23 | PM.EVENT ---
Event Note Event Note Event Note: check BMP today potassium 2.9 magnesium 1.7, patient received 2 g Mag IV, will be getting 3 doses of 40 mEq potassium q.4 hours today and will recheck lab work in the morning.
[2020-05-14] MEDS: MAGNESIUM SULF 2 GM/WATER 50ML 2 GM/50 ML BAG IVPB (15:12)
[2020-05-14 16:00] VITALS: BP 128/83; PULSE 98; RESP 18; TEMP 36.6; O2SAT 98
[2020-05-14] MEDS: ACETAMINOPHEN 500 MG TABLET PO (17:11)
[2020-05-14] MEDS: RIVAROXABAN 10 MG TABLET PO (17:13)
[2020-05-14 18:04] LABS: Add Urine Microscopic? NO; Appearance Urine Clear (Clear); Bilirubin Urine Negative (Negative); Blood Urine Negative (Negative); Color Urine Yellow (Yellow); Glucose Urine UA Negative (Negative); Ketones Urine Negative (Negative); Leukocyte Esterase Ur Negative (Negative); Nitrate Urine Negative (Negative); Protein Urine Negative (Negative); Specific Grav Ur 1.015 (1.010-1.020); Urobilinogen Urine 0.2 mg/dL (0.2-1.0); pH Urine 6.5 (5.0-8.0)
[2020-05-14] MEDS: CYCLOBENZAPRINE HCL 5 MG TABLET PO (20:55)
[2020-05-14] MEDS: MONTELUKAST SODIUM 10 MG TABLET PO (20:55)
[2020-05-14] MEDS: clonazePAM (*CRX) 0.5 MG TABLET PO (20:55)
[2020-05-14] MEDS: traZODone HCL 50 MG TABLET PO (20:55)
--- NOTE | 2020-05-14 22:37 | PC.NURSE ---
Up to commode, SBA only, patient able to get up to sitting position from bed, able to get from sitting position to standing with no assistance needed, up to commode and able to get self and legs back in to bed unassisted.
[2020-05-14] MEDS: PRAMIPEXOLE 0.25 MG TABLET 0.125 MG PO (23:41)
[2020-05-15] VITALS: BP 111/62; PULSE 85; RESP 18; RESP 20; TEMP 36.2; O2SAT 97
[2020-05-15] MEDS: oxyCODONE/ACETAMINOPHEN (*CRX) 5-325 MG TABLET 1 TABLET PO ×4 (00:54→21:53)
[2020-05-15 06:20] VITALS: O2SAT 96
[2020-05-15] MEDS: ALBUTEROL SULFATE (*SP) INHALER 4 PUFF INHALATION ×4 (06:21→21:54)
[2020-05-15 06:25] LABS: Hematocrit 30.2 % (35.0-42.0); Hemoglobin 9.8 g/dL (11.7-13.8); Mean Corpuscular HGB Conc 32.5 g/dL (32.0-36.0); Mean Corpuscular Hemoglobin 31.5 pg (27.0-31.0); Mean Corpuscular Volume 97.1 fL (78.0-102.0); Mean Platelet Volume 8.6 fl (9.2-11.8); Platelet Count Result 331 K/mm3 (150-420); Red Blood Count 3.11 M/mm3 (4.20-5.40); Red Cell Distribution Width 16.9 % (11.6-14.4); White Blood Count 13.9 K/mm3 (4.8-10.8)
[2020-05-15 06:27] LABS: Anion Gap 10 mmol/L (8-16); Blood Urea Nitrogen 24 mg/dL (7-18); Calcium 9.1 mg/dL (8.5-10.1); Carbon Dioxide 28 mmol/L (21-32); Chloride 101 mmol/L (98-108); Estimated CRCL calculation 62 ml/min; Estimated Glomerular Filt Rate > 60; Glucose 103 mg/dL (70-99); Osmolality Calculated 292 mOsm/kg (285-295); Potassium 3.5 mmol/L (3.5-5.1); Sodium 139 mmol/L (136-145)
--- NOTE | 2020-05-15 06:31 | PC.NURSE ---
Pt.up to BSC several times thru noc. SBA only c walker. Pt. sitting in bed c light on at this time, Pt. thea. albuterol inhaler c spacer well. Pt.watching TV, no c/o.
[2020-05-15 07:01] LABS: Alanine Aminotransferase 82 U/L (14-59); Magnesium 2.1 mg/dL (1.8-2.4)
[2020-05-15 08:00] VITALS: BP 138/83; PULSE 92; RESP 20; TEMP 36.4; O2SAT 93
[2020-05-15] MEDS: SACCHAROMYCES BOULARDII 250 MG CAPSULE PO ×2 (08:38→18:09)
[2020-05-15] MEDS: ESCITALOPRAM OXALATE 10 MG TABLET 20 MG PO (08:39)
[2020-05-15] MEDS: INDAPAMIDE 2.5 MG TABLET PO (08:39)
[2020-05-15] MEDS: PANTOPRAZOLE 40 MG TABLET PO ×2 (08:39→18:10)
[2020-05-15] MEDS: busPIRone HCL 5 MG TABLET 10 MG PO ×3 (08:39→18:10)
[2020-05-15] MEDS: CHOLECALCIFEROL 400 UNITS TABLET (VIT D) PO (08:39)
[2020-05-15] MEDS: DEXAMETHASONE 4 MG TABLET 6 MG PO (08:39)
[2020-05-15] MEDS: amLODIPine BESYLATE 5 MG TABLET PO (08:40)
[2020-05-15] MEDS: ATORVASTATIN 10 MG TABLET 20 MG PO (08:40)
[2020-05-15] MEDS: GABAPENTIN 100 MG CAPSULE PO ×2 (08:40→18:10)
[2020-05-15] MEDS: PRAMIPEXOLE 0.25 MG TABLET PO ×2 (08:40→18:10)
[2020-05-15] MEDS: CELECOXIB 100 MG CAPSULE 200 MG PO ×2 (08:40→18:10)
[2020-05-15] MEDS: FERROUS SULFATE 324 MG TABLET PO ×2 (08:40→18:10)
[2020-05-15 16:00] VITALS: BP 144/82; PULSE 96; RESP 20; TEMP 36.7; O2SAT 97
[2020-05-15] MEDS: RIVAROXABAN 10 MG TABLET PO (18:12)
[2020-05-15 20:00] VITALS: PULSE 97; RESP 16; O2SAT 98
[2020-05-15] MEDS: CYCLOBENZAPRINE HCL 5 MG TABLET PO (21:54)
[2020-05-15] MEDS: MONTELUKAST SODIUM 10 MG TABLET PO (21:54)
[2020-05-15] MEDS: clonazePAM (*CRX) 0.5 MG TABLET PO (21:54)
[2020-05-15] MEDS: traZODone HCL 50 MG TABLET PO (21:55)
[2020-05-16 00:30] VITALS: BP 101/67; PULSE 71; RESP 18; TEMP 37.1; O2SAT 98
[2020-05-16] MEDS: oxyCODONE/ACETAMINOPHEN (*CRX) 5-325 MG TABLET 1 TABLET PO ×4 (04:10→23:04)
[2020-05-16] MEDS: ALBUTEROL SULFATE (*SP) INHALER 4 PUFF INHALATION ×4 (06:16→20:24)
--- NOTE | 2020-05-16 06:17 | PC.NURSE ---
pt sleeping, easily awakened for inhaler. up to commode. ice water freshened.
--- NOTE | 2020-05-16 06:41 | PC.NURSE ---
pt stated i was finally able to get some rest .
--- NOTE | 2020-05-16 06:59 | PC.NURSE ---
Report to CARINA Hill
[2020-05-16] MEDS: ACETAMINOPHEN 500 MG TABLET PO ×2 (07:55→15:21)
[2020-05-16 08:00] VITALS: BP 116/70; PULSE 82; RESP 18; TEMP 36.6; O2SAT 96
--- NOTE | 2020-05-16 08:00 | PC.NURSE ---
Up from bed to commode then to chair for breakfast, SBA only , patient used walker, tolerated well, dressing to hip dry and intact, no drge noted
[2020-05-16] MEDS: GABAPENTIN 100 MG CAPSULE PO ×2 (08:44→16:59)
[2020-05-16] MEDS: PRAMIPEXOLE 0.25 MG TABLET PO ×2 (08:44→17:00)
[2020-05-16] MEDS: ESCITALOPRAM OXALATE 10 MG TABLET 20 MG PO (08:44)
[2020-05-16] MEDS: PANTOPRAZOLE 40 MG TABLET PO ×2 (08:44→16:59)
[2020-05-16] MEDS: CHOLECALCIFEROL 400 UNITS TABLET (VIT D) PO (08:44)
[2020-05-16] MEDS: DEXAMETHASONE 4 MG TABLET 6 MG PO (08:44)
[2020-05-16] MEDS: INDAPAMIDE 2.5 MG TABLET PO (08:44)
[2020-05-16] MEDS: ATORVASTATIN 10 MG TABLET 20 MG PO (08:45)
[2020-05-16] MEDS: busPIRone HCL 5 MG TABLET 10 MG PO ×2 (08:45→17:00)
[2020-05-16] MEDS: amLODIPine BESYLATE 5 MG TABLET PO (08:45)
[2020-05-16] MEDS: SACCHAROMYCES BOULARDII 250 MG CAPSULE PO ×2 (08:45→16:58)
[2020-05-16] MEDS: FERROUS SULFATE 324 MG TABLET PO ×2 (08:45→16:59)
[2020-05-16] MEDS: CELECOXIB 100 MG CAPSULE 200 MG PO ×2 (08:45→16:59)
--- NOTE | 2020-05-16 11:12 | PC.NURSE ---
under left breast feels irritated, hospitalist notified
--- NOTE | 2020-05-16 12:12 | PC.NURSE ---
In chair, lunch to patient, denies needs at this time
--- NOTE | 2020-05-16 12:39 | PM.EVENT ---
Event Note Event Note Event Note: patient with erythema with sharp marginated borders under her left breast , will treat with antifungal powder.
--- NOTE | 2020-05-16 14:00 | PC.NURSE ---
remains in chair at this time
[2020-05-16 16:00] VITALS: BP 137/57; PULSE 60; RESP 16; TEMP 36.8; O2SAT 97
[2020-05-16] MEDS: RIVAROXABAN 10 MG TABLET PO (19:43)
[2020-05-16] MEDS: MONTELUKAST SODIUM 10 MG TABLET PO (20:25)
[2020-05-16] MEDS: clonazePAM (*CRX) 0.5 MG TABLET PO (20:25)
[2020-05-16] MEDS: CYCLOBENZAPRINE HCL 5 MG TABLET PO (20:25)
[2020-05-16] MEDS: traZODone HCL 50 MG TABLET PO (20:25)
[2020-05-16] MEDS: TOLNAFTATE 1% POWDER 45 GM BTL 1 APPLIC TOPICAL ×2 (20:25→21:20)
[2020-05-16 23:47] VITALS: BP 114/64; PULSE 74; RESP 18; TEMP 36.4; O2SAT 95
--- NOTE | 2020-05-17 01:37 | PC.NURSE ---
pt sleeping, respirations even and regular, no evidence of distress noted at this time
[2020-05-17] MEDS: ALBUTEROL SULFATE (*SP) INHALER 4 PUFF INHALATION ×2 (05:40→09:16)
[2020-05-17] MEDS: oxyCODONE/ACETAMINOPHEN (*CRX) 5-325 MG TABLET 1 TABLET PO ×2 (05:41→11:22)
[2020-05-17 07:30] VITALS: BP 107/65; PULSE 82; RESP 18; TEMP 36.2; O2SAT 95
[2020-05-17] MEDS: INDAPAMIDE 2.5 MG TABLET PO (09:11)
[2020-05-17] MEDS: FERROUS SULFATE 324 MG TABLET PO (09:11)
[2020-05-17] MEDS: CHOLECALCIFEROL 400 UNITS TABLET (VIT D) PO (09:11)
[2020-05-17] MEDS: CELECOXIB 100 MG CAPSULE 200 MG PO (09:12)
[2020-05-17] MEDS: ATORVASTATIN 10 MG TABLET 20 MG PO (09:12)
[2020-05-17] MEDS: ESCITALOPRAM OXALATE 10 MG TABLET 20 MG PO (09:12)
[2020-05-17] MEDS: DEXAMETHASONE 4 MG TABLET 6 MG PO (09:13)
[2020-05-17] MEDS: busPIRone HCL 5 MG TABLET 10 MG PO (09:13)
[2020-05-17] MEDS: PANTOPRAZOLE 40 MG TABLET PO (09:14)
[2020-05-17] MEDS: SACCHAROMYCES BOULARDII 250 MG CAPSULE PO (09:14)
[2020-05-17] MEDS: GABAPENTIN 100 MG CAPSULE PO (09:14)
[2020-05-17] MEDS: PRAMIPEXOLE 0.25 MG TABLET PO (09:14)
[2020-05-17] MEDS: amLODIPine BESYLATE 5 MG TABLET PO (09:14)
[2020-05-17] MEDS: TOLNAFTATE 1% POWDER 45 GM BTL 1 APPLIC TOPICAL (09:16)
--- NOTE | 2020-05-17 10:24 | PM.DS ---
DS: Admitting Diagnosis Admitting Diagnosis Admitting Diagnosis: rehab DS: Discharge Diagnosis Discharge Diagnosis (1) COVID-19: Code(s): U07.1 - COVID-19 Status: Acute Assessment and Plan: Stable Patient instructed to stay quarantined until 05/28/2020 Patient has completed dexamethasone and remdesivir unable to complete due to patient's liver function tests (2) Postoperative anemia: Code(s): D64.9 - Anemia, unspecified Status: Acute Assessment and Plan: Last H&H .02/12. Follow-up with primary care physician (3) Obstructive sleep apnea: Code(s): G47.33 - Obstructive sleep apnea (adult) (pediatric) Status: Chronic Assessment and Plan: Continue home CPAP (4) COPD (chronic obstructive pulmonary disease): Qualifiers: COPD type: unspecified COPD Qualified Code(s): J44.9 - Chronic obstructive pulmonary disease, unspecified Code(s): J44.9 - Chronic obstructive pulmonary disease, unspecified Status: Chronic Assessment and Plan: Continue home medication (5) GERD (gastroesophageal reflux disease): Qualifiers: Esophagitis presence: esophagitis presence not specified Qualified Code(s): K21.9 - Gastro-esophageal reflux disease without esophagitis Code(s): K21.9 - Gastro-esophageal reflux disease without esophagitis Status: Chronic Assessment and Plan: Continue home medication (6) Transaminitis: Code(s): R74.01 - Elevation of levels of liver transaminase levels Status: Acute Assessment and Plan: Patient last ALT 82 has improved since admission, baseline appears to be 48 Patient will have to follow-up with primary care physician (7) Closed subtrochanteric fracture of left femur: Qualifiers: Encounter type: initial encounter Fracture alignment: displaced Qualified Code(s): S72.22XA - Displaced subtrochanteric fracture of left femur, initial encounter for closed fracture Code(s): S72.22XA - Displaced subtrochanteric fracture of left femur, initial encounter for closed fracture Status: Acute Assessment and Plan: Home health will be to the patient's home on either Friday or Friday to remove kell Patient will follow up with Dr. Tellez on 06/26/2019 Incisional site healing well no signs and symptoms of infection (8) Hypertension: Qualifiers: Hypertension type: unspecified Qualified Code(s): I10 - Essential (primary) hypertension Code(s): I10 - Essential (primary) hypertension Status: Chronic Assessment and Plan: Continue home medication (9) Rheumatoid arthritis: Qualifiers: Rheumatoid arthritis location: unspecified site Rheumatoid factor presence: unspecified presence Qualified Code(s): M06.9 - Rheumatoid arthritis, unspecified Code(s): M06.9 - Rheumatoid arthritis, unspecified Status: Acute Assessment and Plan: Continue home medication (10) Hypokalemia: Code(s): E87.6 - Hypokalemia Status: Acute Assessment and Plan: Resolved DS: Summary Time Spent with Patient Time attestation: Total time spent providing and/or coordinating discharge services:60 Exam Narrative: Exam Narrative: GENERAL: This is a well-nourished, well-developed patient, in no apparent distress. HEAD: normocephalic, atraumatic. EYES: PERRL. Sclera clear/white. Vision is grossly intact. EARS: External ears normal, auditory canals clear and without drainage, TMs normal without perforation. Hearing grossly intact. NOSE: External nose normal with no obvious nasal discharge, nares without redness, no rhinorrhea. THROAT: Mucous membranes moist, posterior pharynx clear. NECK: Neck supple, non-tender without lymphadenopathy, masses or thyromegaly. CARDIOVASCULAR: Regular rate and rhythm without murmurs, gallops, or rubs. RESPIRATORY: Clear to auscultation. Breath sounds equal bilaterall
--- NOTE | 2020-05-17 11:48 | PC.NURSE ---
saline lock removed with cathlon intact, to watch for signs of infection
--- NOTE | 2020-05-17 13:00 | PC.NURSE ---
Discharge instructions reviewed with patient, no questions, voices understanding, all personal items returned to patient, including medications and cpap machine, dressing supplies
--- NOTE | 2020-05-17 13:15 | PC.NURSE ---
discharge via wheel chair to home, denies needs no questions upon discharge to home
--- NOTE | 2020-05-17 23:29 | PM.EVENT ---
Event Note Event Note Event Note: I have examined the patient and reviewed the chart. Discussed the patient's care with Mark Ng APN and agree with her assessment and plan.
--- NOTE | 2020-05-18 13:24 | PC.NURSE ---
Pt states she received and understood her discharge instructions, also states I'm just glad to be home .
== END 2020-05-17 13:15 | disposition home health service (06) | DRG 559 ==
PROVIDERS: Nurse Practitioner Family; Admitting Provider Emergency Medicine; PCP Internal Medicine Geriatric Medicine; Visit Provider Emergency Medicine
DX: S72.22XD Displaced subtrochanteric fracture of left femur, subsequent encounter for closed fracture with routine healing (principal); U07.1 COVID-19; J96.10 Chronic respiratory failure, unspecified whether with hypoxia or hypercapnia; M06.9 Rheumatoid arthritis, unspecified; J44.9 Chronic obstructive pulmonary disease, unspecified; I10 Essential (primary) hypertension; K21.9 Gastro-esophageal reflux disease without esophagitis; E78.5 Hyperlipidemia, unspecified; G47.33 Obstructive sleep apnea (adult) (pediatric); G25.81 Restless legs syndrome; Z96.659 Presence of unspecified artificial knee joint
CPT/HCPCS: 36415; 80048; 81003; 83735; 84460; 85025; 85027; 85610; 87086; 87088; 97110; 97161; 97165; 97530; 97535; A9270; J3475; J8540

== ENCOUNTER 2020-05-24 10:28 | Outpatient (NON) | payer MEDICARE, SELFPAY ==
[2020-05-24 10:55] LABS: Alanine Aminotransferase 43 U/L (4-35); Albumin Level 3.3 g/dL (3.5-5.1); Alkaline Phosphatase 139 U/L (38-126); Anion Gap 5 mmol/L (8-16); Aspartate Amino Transferase 43 U/L (14-36); Bilirubin,Total 0.6 mg/dL (0.2-1.3); Blood Urea Nitrogen 22 mg/dL (7-17); Calcium 8.7 mg/dL (8.4-10.2); Carbon Dioxide 37 mmol/L (22-30); Chloride 97 mmol/L (98-107); Estimated Glomerular Filt Rate > 60; Glucose 94 mg/dL (65-105); Potassium 3.3 mmol/L (3.4-5.0); Sodium 139 mmol/L (137-145)
[2020-05-24 11:23] LABS: Hematocrit 29.5 % (37.0-47.0); Hemoglobin 9.3 g/dL (12.0-15.0); Mean Corpuscular HGB Conc 31.5 g/dl (32-36); Mean Corpuscular Hemoglobin 31.6 pg (26-34); Mean Corpuscular Volume 100.3 fl (80-100); Mean Platelet Volume 9.2 fl (7.4-10.4); Platelet Count Result 248 k/mm3 (150-375); Red Blood Count 2.94 M/mm3 (4.2-5.4); Red Cell Distribution Width 17.6 % (11.5-14.5); White Blood Count 10.5 K/mm3 (4.5-10.0)
== END 2020-05-24 10:29 ==
PROVIDERS: PCP Internal Medicine Geriatric Medicine; Visit Provider Internal Medicine
DX: R74.01 Elevation of levels of liver transaminase levels (principal); D64.9 Anemia, unspecified
CPT/HCPCS: 80053; 85027

== ENCOUNTER 2021-12-18 13:30 | Outpatient (RCR) | payer MEDICARE, SELFPAY | END 2022-01-10 16:47 | disposition home or self-care (01) | LOC: ANHCPREHAB 13:30 | PROVIDERS: PCP Internal Medicine Geriatric Medicine | DX: J44.9 Chronic obstructive pulmonary disease, unspecified (principal) | CPT/HCPCS: 94625 ==

== ENCOUNTER 2023-02-11 07:31 | Outpatient (CLI) | payer MEDICARE, SELFPAY ==
--- NOTE | ~2023-02-11 | XR_ITS ---
EXAM: XR foot RT min 3V DATE: 02/11/2023 11:17 HISTORY: ULCERATION RIGHT FOOT . COMPARISON: . FINDINGS: Normal mineralization. Uncomplicated fusion hardware in the fourth digit. Third digit ampu tation. No fracture or dislocation. No lytic or blastic lesion. Severe hallux valgus. Severe arthriti c changes at the first MTP joint and multiple midfoot joints. No erosion or periosteal change. Soft t issues within normal limits. IMPRESSION: No acute osseous finding. Severe arthritic changes at the first MTP joint and in the midf oot possibly related to neuropathic arthropathy. Reviewed, dictated and finalized at location K. IMPRESSION: No acute osseous finding. 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
--- NOTE | ~2023-02-11 | NM_ITS ---
EXAMINATION: NM bone 3 phase DATE: 02/11/2023 11:39 INDICATION: Right foot ulceration near where the great toe would be. TECHNIQUE: 24.3 mCi Tc-99m HDP by intravenous route. Scintigrams of the bilateral feet and ankles we re obtained in angiographic, blood pool, and delayed phases. COMPARISON: None. FINDINGS: Normal symmetric distribution of activity in the angiographic phase images. There is mild uptake in t he region of the left midfoot on the immediate blood pool imaging. On the delayed imaging there is pr ominent asymmetric and likely degenerative increased uptake at the left midfoot and minimal uptake in the region of the left first and third metatarsophalangeal joints at the head of the right first met atarsal where there appears to have been a prior great toe amputation. IMPRESSION: 1. No regions of hyperemia in either foot or ankle on the angiographic phase images to suggest infla mmation. Specifically no significantly increased uptake in the region of a likely prior right great t oe amputation to suggest osteomyelitis. 2. Prominent asymmetric delayed uptake in the region of the left midfoot is likely degenerative in et iology. Reviewed, dictated and finalized at location A. IMPRESSION: 1. No regions of hyperemia in either foot or ankle on the angiographic phase i mages to suggest inflammation. Specifically no significantly increased uptake i n the region of a likely prior right great toe amputation to suggest osteomyeli tis. 2. Prominent asymmetric delayed uptake in the region of the left midfoot is lik lake degenerative in etiology.
== END 2023-02-11 07:32 | disposition home or self-care (01) ==
PROVIDERS: PCP Internal Medicine Geriatric Medicine; Visit Provider Nurse Practitioner
DX: L97.512 Non-pressure chronic ulcer of other part of right foot with fat layer exposed (principal); M19.071 Primary osteoarthritis, right ankle and foot
CPT/HCPCS: 73630; 78315; A9503

== ENCOUNTER 2024-02-11 11:21 | Emergency (ER) | payer MEDICARE, SELFPAY ==
[2024-02-11] VITALS (7 sets, daily range): BP systolic 128–130; BP diastolic 59–61; PULSE 87–94; RESP 21–28; TEMP 37.2; O2SAT 94–99
--- NOTE | ~2024-02-11 | XR_ITS ---
Clinical Indication: Dyspnea AP and lateral views of the chest: Comparison: 05/10/2020 Findings: The lungs are clear, without evidence of focal consolidation or pleural effusion. Low lung volumes noted. Cardiomediastinal silhouette is stable, with pacemaker device. There is mild compressi on deformity of T12. Impression: Clear lungs. Low lung volumes. Pacemaker is. Reviewed, dictated and finalized at location . Impression: Clear lungs. Low lung volumes. Pacemaker is.
--- NOTE | 2024-02-11 11:36 | ECG_ITS ---
Test Date: 2024-02-11 11:44:37 Measurements Intervals [place] Rate: 82 P: 23 NE: 176 QRS: -5 QRSD: 108 T: 76 QT: 394 QTc: 462 Interpretive Statements SINUS RHYTHM VOLTAGE CRITERIA FOR LVH [MEETS CRITERIA IN ONE OF: R(aVL), S(V1), R(V5), R(V5/V6)+S(V1)] NONSPECIFIC T-WAVE ABNORMALITY ABNORMAL ECG No previous ECG available for comparison Electronically Signed On 02-12-2024 13:06:56 CDT by Johan Gonzalez M.D.
[2024-02-11 12:05] LABS: Basophils Absolute Auto 0.1 K/mm3 (0.0-0.1); Basophils Percent Auto 0.8 % (0.2-1.2); Eosinophils Absolute Auto 0.1 K/mm3 (0-0.3); Hematocrit 39.1 % (37.0-47.0); Hemoglobin 12.6 g/dL (12.0-15.0); Immature Granulocyte Absolute 0.06 K/mm3 (0.00-0.031); Immature Granulocyte Percent A 0.5 % (0-0.5); Lymphocytes Absolute Auto 2.17 K/mm3 (0.9-3.2); Lymphocytes Percent Auto 18.9 % (18.3-44.2); Mean Corpuscular HGB Conc 32.2 g/dl (32-36); Mean Corpuscular Hemoglobin 31.8 pg (26-34); Mean Corpuscular Volume 98.7 fl (80-100); Mean Platelet Volume 9.2 fl (7.4-10.4); Monocytes Absolute Auto 1.3 K/mm3 (0.1-0.6); Monocytes Percent Auto 10.9 % (2.6-8.5); Neutrophils Absolute Auto 7.8 K/mm3 (1.3-6.7); Neutrophils Percent Auto 67.9 % (45.5-73.1); Platelet Count Result 196 k/mm3 (150-375); Red Blood Count 3.96 M/mm3 (4.2-5.4); Red Cell Distribution Width 13.5 % (11.5-14.5); White Blood Count 11.5 K/mm3 (4.5-10.0)
[2024-02-11 12:19] LABS: Alanine Aminotransferase 48 U/L (6-35); Albumin Level 4.3 g/dL (3.5-5.1); Alkaline Phosphatase 72 U/L (38-126); Anion Gap 7 mmol/L (4-12); Aspartate Amino Transferase 49 U/L (14-36); Bilirubin,Total 0.4 mg/dL (0.2-1.3); Blood Urea Nitrogen 15 mg/dL (7-17); Calcium 9.3 mg/dL (8.4-10.2); Carbon Dioxide 36 mmol/L (22-30); Chloride 96 mmol/L (98-107); Estimated Glomerular Filt Rate > 60; Glucose 106 mg/dL (65-110); Potassium 3.3 mmol/L (3.4-5.0); Sodium 139 mmol/L (137-145)
[2024-02-11] MEDS: IPRATROPIUM BR 0.02% INH SOLN 0.5 MG/2.5 ML VIAL 1 MG INHALATION (12:32)
[2024-02-11] MEDS: ALBUTEROL SULFATE NEB 2.5 MG/3 ML INH 10 MG INHALATION (12:32)
--- NOTE | 2024-02-11 12:46 | ED.SOB ---
HPI - SOB/Dyspnea General Chief Complaint: Shortness of Breath/Dyspnea Stated Complaint: low o2 Time Seen by Provider: 02/11/24 11:59 History of Present Illness HPI Narrative: Patient is a 9-year-old female who presents ER with shortness of breath. Sudden onset 30 minutes Sir after having her nails done. Patient is chronically dependent on 5 L of O2 by nasal cannula. Mild cough over last couple days. No fevers chills or sweats. No chest pain or chest pressure. no abdominal pain. Patient's O2 saturation was low per daughter. Related Data Home Medications Medication Instructions Recorded Confirmed albuterol sulfate 90 mcg/actuation 2 puff inhalation Q4H PRN 05/05/20 09/28/21 aerosol inhaler SHORTNESS OF BREATH amlodipine 5 mg tablet 5 mg PO DAILY 05/05/20 09/28/21 atorvastatin 20 mg tablet 20 mg PO DAILY 05/05/20 09/28/21 azelastine 137 mcg (0.1 %) nasal 137 mcg intranasal BID 05/05/20 09/28/21 spray buspirone 10 mg tablet 10 mg PO TID 05/05/20 09/28/21 clonazepam 0.5 mg tablet 0.5 mg PO DAILY PRN Anxiety 05/05/20 09/28/21 clotrimazole 10 mg rocío 10 mg PO QID 05/05/20 09/28/21 cyclobenzaprine 5 mg tablet 5 mg PO HS 05/05/20 09/28/21 escitalopram oxalate 20 mg tablet 20 mg PO DAILY 05/05/20 05/10/20 fluticasone propionate 50 2 spray intranasal DAILY 05/05/20 09/28/21 mcg/actuation nasal spray,suspension indapamide 1.25 mg tablet 2.5 mg PO DAILY 05/05/20 09/28/21 montelukast 10 mg tablet 10 mg PO HS 05/05/20 09/28/21 pramipexole 1.5 mg tablet 4.5 mg PO HS 05/05/20 09/28/21 trazodone 50 mg tablet 300 mg PO HS 05/05/20 10/10/21 Lactobacillus reuteri 100 million 1 cell PO DAILY 05/06/20 09/28/21 cell chewable tablet adalimumab 40 mg/0.4 mL 40 mg subcut [id number] 05/06/20 05/10/20 subcutaneous pen kit (Humira(CF) Pen) cholecalciferol (vitamin D3) 10 10 mcg PO DAILY 05/06/20 09/28/21 mcg (400 unit) tablet (Vitamin D3) ipratropium 0.5 mg-albuterol 3 mg 3 ml inhalation QID 05/06/20 09/28/21 (2.5 mg base)/3 mL nebulization soln multivitamin with minerals 1 tablet PO DAILY 05/06/20 09/28/21 prednisone 5 mg tablet 5 mg PO BID 05/06/20 09/28/21 aspirin 81 mg tablet,delayed 81 mg PO DAILY 09/28/21 09/28/21 release clopidogrel 75 mg tablet (Plavix) 75 mg DAILY 09/28/21 09/28/21 albuterol sulfate 2.5 mg/0.5 mL 2.5 mg inhalation DAILY 10/10/21 10/10/21 solution for nebulization calcium carbonate mg PO DAILY 10/10/21 fluticasone furoate 200 1 inh inhalation DAILY 10/10/21 10/10/21 mcg/actuation blister powder for inhalation fluticasone propionate 50 1 spray intranasal DAILY 10/10/21 10/10/21 mcg/actuation nasal spray,suspension furosemide 40 mg tablet 40 mg PO BID 10/10/21 10/10/21 potassium chloride 20 mEq 20 meq PO DAILY 10/10/21 10/10/21 tablet,extended release tizanidine 4 mg capsule 4 mg PO HS PRN Muscle Spasm 10/10/21 10/10/21 hydroxychloroquine 200 mg tablet 200 mg PO BID 11/13/21 11/13/21 Allergies Allergy/AdvReac Type Severity Reaction Status Date / Time Penicillins Allergy Unknown Verified 05/06/20 00:23 scopolamine Allergy Unknown Verified 05/06/20 00:23 Sulfa (Sulfonamide Allergy Unknown Verified 05/06/20 00:23 Antibiotics) Review of Systems Review of Systems: All systems reviewed & are unremarkable except as noted in HPI and below Constitutional: Constitutional: Reports no additional constitutional complaints ENT: Reports system reviewed and no additional complaints, except as documented Cardiovascular: Cardiovascular: Reports no additional cardiovascular complaints Respiratory: Respiratory: Reports chest congestion, Reports cough, Reports dyspnea and Denies wheezing Gastrointestinal: Gastrointestinal: Reports no additional gastrointestinal complaints Musculoskeletal: Musculoskeletal: Reports no additional musculoskeletal complaints [facility] Past Medical History Medical History Chronic respiratory failur
--- NOTE | 2024-02-11 14:06 | PC.NURSE ---
Patient was brought to the ED with sob with home o2 at 5l NC and sats in the mid 70s. patient was visibly working to breathe and was placed on a NRB at 15L with improvement of sats immediately. patient breathing was controlled and sats maintained in the 99-100% range. patient placed back on nc with 5 L o2. patient tolerated decrease in o2 well and is now on 4L NC and has a sat of 99%.
--- NOTE | 2024-02-11 14:46 | PC.NURSE ---
Patient ambulated around the unit and saturations maintained at 95%, patient ambulated to bathroom and back and stated some shortness of breath and feeling as though it's difficult to breathe but this has been happening for the past month or so. patient does have a dip in spo2 upon sitting up but when she moves slowly and transitions gently she maintains her sats.
== END 2024-02-11 14:55 | disposition home or self-care (01) ==
PROVIDERS: Emergency Medicine; Emergency Provider Emergency Medicine; PCP Internal Medicine Geriatric Medicine
DX: J44.1 Chronic obstructive pulmonary disease with (acute) exacerbation (principal); J96.10 Chronic respiratory failure, unspecified whether with hypoxia or hypercapnia; I10 Essential (primary) hypertension; E78.5 Hyperlipidemia, unspecified; K21.9 Gastro-esophageal reflux disease without esophagitis; G47.33 Obstructive sleep apnea (adult) (pediatric); G25.81 Restless legs syndrome; M06.9 Rheumatoid arthritis, unspecified; Z96.659 Presence of unspecified artificial knee joint; Z79.82 Long term (current) use of aspirin; Z79.899 Other long term (current) drug therapy; Z79.620 Long term (current) use of immunosuppressive biologic; R94.31 Abnormal electrocardiogram [ECG] [EKG]
CPT/HCPCS: 36415; 71046; 80053; 85025; 93005; 94640; 99284

== ENCOUNTER 2025-02-14 17:46 | Emergency (ER) | payer MEDICARE, SELFPAY ==
--- OUTSIDE RECORDS SUMMARY | 2002-01-20 09:30 | XMS_ITS | Continuity of Care Document ---
Author Organization [facility] Address [address] [place] [address] [place] [address] Phone Care Team Providers Care Director Of Strategic Partnerships Name Role Phone Levi Rodriguez MD Unavailable Unavailable Advance Directives Directive Yes / No Effective Date File Name No Information Encounters Encounter Description Practice Location Reason(s) For Visit Diagnoses Date Provider Providers Copied on Encounter [facility], [address] [place] [address] [address], [place], [place], [id number], [place] tel:[phone] SEC [facility] Professional No Information [address] Jennifer Sims. [address] [facility] [address], [place], [place], [id number], [place]. tel:[phone] Family History Family Member Type Diagnosis Age At Onset No Information Payers Payer name Insurance type Covered democrat ID Authoriza tion(s) No Information Social History [...]
--- NOTE | ~2025-02-14 | CT_ITS ---
EXAMINATION: CTA chest PE abdomen pel DATE: 02/15/2025 11:03 CDT INDICATION: Tachycardia.. Left lower quadrant pain. TECHNIQUE: Computed tomographic angiography (CTA) of the chest, abdomen, and pelvis was performed with intravenous contrast. The dose-length product was 1995.22 mGy-cm. Maximum intensity projection 3D-reconstructions of the aorta and other arteries were constructed by the technologist on a separate workstation. COMPARISON: None. FINDINGS: CHEST CTA: Heart is enlarged. No enlarged mediastinal or hilar lymph nodes. Lung volumes are low. Moderate elevation of the left hemidiaphragm. Thoracic aorta is partially calcified but is not aneurysmal. No pulmonary embolism identified. Moderate-sized ground glass opacities scattered throughout both lungs. Moderate- sized consolidation in the left lower lobe with air bronchograms. Thyroid gland is heterogeneous with a few subcentimeter thyroid nodules. Generator is noted in the subcutaneous fat along the left anterior chest wall. No pneumothorax. No pleural effusion. Multilevel degenerative change in the visualized spine. ABDOMEN AND PELVIS CTA: Cholecystomy clips. There is a 2.8 cm cyst in the right lobe of the liver. Spleen, adrenal glands, pancreas are unremarkable. Common duct is prominent presumably due to previous cholecystectomy. No common duct stones identified. Kidneys are unremarkable. Abdominal aorta is partially calcified but is not aneurysmal. Bladder is unremarkable. Hardware in the left femur with surrounding artifact. Mild diverticulosis. No free fluid in the pelvis. No dilated bowel loops. Bones appear osteopenic. Hardware is noted in the lumbosacral spine. Correlate clinically. Extensive degenerative change in the visualized spine. IMPRESSION: 1. Moderate-sized ground glass opacities scattered throughout both lungs. Moderate-sized consolidation in the left lower lobe with air bronchograms. Differential includes but is not limited to an inflammatory/infectious process. Recommend follow-up to resolution. 2. No CT evidence for an acute process in the abdomen or pelvis at this time. 3. Diverticulosis without CT evidence for acute diverticulitis at this time. Reviewed, dictated and finalized at location Q. IMPRESSION: 1. Moderate-sized ground glass opacities scattered throughout both lungs. Moder ate-sized consolidation in the left lower lobe with air bronchograms. Different ial includes but is not limited to an inflammatory/infectious process. Recommen d follow-up to resolution. 2. No CT evidence for an acute process in the abdomen or pelvis at this time. 3. Diverticulosis without CT evidence for acute diverticulitis at this time.
--- NOTE | ~2025-02-14 | XR_ITS ---
EXAMINATION: XR chest 1V portable DATE: 02/14/2025 19:06 INDICATION: Cough and crackles in the right lower lung TECHNIQUE: frontal view of the chest was obtained. COMPARISON: Chest radiograph dated 02/11/2024 FINDINGS: Small lung volumes particularly on the left where there is chronic elevation the left hemidiaphragm. No focal airspace opacities, pulmonary edema, pleural effusion or pneumothorax. Cardiomegaly. Dual lead pacemaker seen with leads projecting over the expected locations of the right atrium and right ventricle. Cholecystectomy clips in right upper quadrant. Additional surgical clips at the right base of the neck. IMPRESSION: 1. Cardiomegaly and chronic elevation of the left hemidiaphragm. No acute cardiopulmonary disease. Reviewed, dictated and finalized at location A. IMPRESSION: 1. Cardiomegaly and chronic elevation of the left hemidiaphragm. No acute cardi opulmonary disease.
[2025-02-14 17:49] VITALS: BP 128/69; PULSE 99; RESP 28; TEMP 37.3; O2SAT 99
--- OUTSIDE RECORDS SUMMARY | 2025-02-14 17:49 | XMS_ITS | Encounter Summary ---
Author Organization [facility] Address [address] [place] [address] Phone Care Team Providers Care Purchasing Manager Name Role Phone Anila Patino MD Primary Care Provider [phone] Salomon Medrano MD Unavailable [phone] Rosalinda Looney MD Unavailable Barrington Yanez MD Unavailable Shaquille Blanco MD Unavailable Onesimo Magaña MD Unavailable Lit Singer MD Unavailable Johan Marti MD Unavailable Tino Still MD Unavailable Matthias Christianson MD Unavailable Matt Richardson DO Unavailable Pema Gill MD Unavailable Jus Patel MD Unavailable Haja Luciano MD Unavailable [phone] Yasmine Yanes MD Unavailable Yasmine Yanes MD Unavailable [phone] Samantha Mir RN Unavailable Unavailable Tabby Mcclendon MD Unavailable Haja Page MD PhD Unavailable + Pema Gill MD Unavailable [phone] Chandler Trejo MD Unavailable [phone] Johan Marti MD Unavailable [phone] Bouchra Ariadne Ricarda AGRICULTURAL CONSULTANT Unavailable [phone] Pema Gill MD Unavailable [phone] Hero Jackman MD Unavailable Ronal Jackson MD Unavailable Kristen Perez MD Unavailable [phone] Ryan Sanders MD Unavailable Geovanna AlvarengaM Unavailable [phone] [facility] Ariadne Ricarda AGRICULTURAL CONSULTANT Unavailable [phone] Tabby Light RN Unavailable [phone] Junior Tobin MD Unavailable Reason for Referral * Consultation (Routine) - Closed Specialty Diagnoses / Procedures Referred By Contac t Referred To Contact Rheumatology Diagnoses Other rheumatoid arthritis with rheumatoid factor of multiple sites Anila Patino MD Phone: tel: fax: Salomon Medrano MD Phone: tel: fax: Referral ID Status Reason Start Date Expiration Date V isits Requested Visits Authorized [id number] Closed Specialty Services Required 01/06/2017 07/05/2017 6 6 Encounter Details Date Type Department Care Team (Late st Contact Info) Description 01/06/2017 Orders Only [facility] [address] [place] [address] Anila Patino MD [address] [place] [address] Other rheumatoid arthritis with rheumatoid factor of multiple sites (HCC) (Primary Dx) Social History Tobacco Use Types Packs/Day Years Used Date Smoking Tobacco: Never Smokeless Tobacco: Never Alcohol Use Standard Drinks/Week Comments No 0 (1 standard drink = 0.6 oz pur e alcohol) Comments Unknown Sex and Gender Information Value Date Recorded Sex Assigned at Not on file Legal Sex Female 4:42 AM COURSEWARE DEVELOPER Gender Identity Female 03/06/2022 7:30 PM CDT Sexual Orientation Straight 03/06/2022 7: 30 PM CDT documented as of this encounter Plan of Treatment Upcoming Encounters Date Type Department Care Team (Late st Contact Info) Description 09/07/2025 Orders Only [facility] [address] [place] [address] Scanning, Provider Scheduled Referrals Name Type Priority Associated Diagnoses Order Schedule Ambulatory referral to Rheumatology Outpatient Referral Routine Other rheumatoid arthritis with rheumatoid factor of multiple sites (HCC) Ordered: 01/06/2017 documented as of this encounter Visit Diagnoses Diagnosis Other rheumatoid arthritis with rheumatoid factor of multiple sites- Primary documented in this encounter Additional Health Concerns Infection Onset Date Last Indicated Resolved Time COVID: Suspected 08/04/2020 08/04/2020 08/04/2020 2:35 PM COURSEWARE DEVELOPER COVID: Suspected 10/05/2020 10/05/2020 10/05/2020 1:07 PM CDT COVID: Suspected 12/16/2020 12/16/2020 12/16/2020 3:40 PM CDT COVID: Suspected 03/15/2021 03/15/2021 03/15/2021 8:52 AM CDT COVID: Suspected 08/15/2021 08/15/2021 08/16/2021 3:05 AM COURSEWARE DEVELOPER COVID: Suspected 05/20/2022 05/20/2022 05/20/2022 2:35 PM COURSEWARE DEVELOPER COVID19 05/20/2022 05/20/2022 05/30/2022 3:05 AM COURSEWARE DEVELOPER COVID: Recovered Comment:Added based on recent COVID infection. 05/30/2022 05/30/2022 08/28/2022 3:05 AM C DT COVID: Suspected 01/13/2023 01/14/2023 01/14/2023 3:05 AM CDT COVID: Suspected 05/02/2023 05/02/2023 05/02/2023 5:51 PM COURSEWARE DEVELOPER COVID: Suspected 10/10/2023 10/10/2023 10/10/2023 4:01 PM CDT COVID: Suspected 12/06/2024 12/06/2024 12/06/2024 12:57 PM CDT documented as of this encounter Care Teams Purchasing Manager Relationship Specialty Start Date End Date Anila Patino MD PCP - General 09/13/16 Salomon Medrano MD [address] [facility] [address] [place] [address] Rheumatology 01/02/17 Rosalinda Looney MD [address] [facility] [address] [place] [address] Psychiatry 01/02/17 Barrington Yanez MD [address] [facility] [address] [place] [address] Pulmonary Disease 01/02/17 01/20/20 [place] [address] [address] [facility] [address] [place], [place] [id number] Surgeon Orthopedic Surgery 01/02/17 01/27/22 [place] [address] [address] [facility] [address] [place], [place] [id number] Otolaryngology 01/02/17 01/20/20 [place] [address] [address] Radiation Oncology 01/02/17 [place] [address] [address] Neurosurgery 01/02/17 Tino Still MD [address] [place] [address] [address] T[address] [address] Surgeon Orthopedic Surgery 09/19/17 [place] [address] [address] Referring Physician Urology 09/19/17 01/20/20 [place] [address] [address] Consulting Physician Gastroenterology 12/10/19 Pema Gill MD [address] [place] [address] Fellow Pulmonary Disease 01/21/20 02/18/24 Jus Patel MD [address] [place] [address] Consulting Physician Urology 01/21/20 02/05/23 Haja Luciano MD [address] [place] [address] Consulting Physician Cardiovascular Disease 12/21/20 Yasmine Yanes MD [address] [place] [address] Consulting Physician Cardiology 07/23/21 Yasmine Yanes MD [address] [place] [address] Consulting Physician Cardiology 07/23/21 01/27/22 Samantha Mir, RN Registered Nurse Pulmonary Disease 01/10/22 02/18/24 Tabby Mcclendon MD [address] [place] [address] Plant Packer Obstetrics and Gynecology 01/28/22 07/30/22 Haja Page MD PhD [address] [place] [address] Consulting Physician Neurology 05/04/22 05/03/24 Pema Gill MD [address] [place] [address] Fellow Pulmonary Disease 06/21/22 07/30/22 Chandler Trejo MD [address] [facility] [place] [address] Consulting Physician Gastroenterology 07/31/22 02/18/24 Johan Marti MD [address] [facility] [place] [place] [address] Referring Physician Neurosurgery 02/06/23 05/03/24 Ariadne Shook, ROSITA [address] [place] [address] Nurse Practitioner Neurology 07/22/23 05/03/24 Pema Gill MD [address] [place] [address] Fellow Pulmonary Disease 07/22/23 07/22/23 Hero Jackman MD [address] [facility] NEUROLOGY SLEEP [address] [address] Consulting Physician Sleep Medicine 07/22/23 Ronal Jackson MD [address] [place] [address] Consulting Physician Pulmonary Disease 02/19/24 Kristen Perez MD [address] [place] [address] Anesthesiologist Pain Management 02/19/24 Ryan Sanders MD [address] [place] [address] Consulting Physician Urology 05/04/22 Geovanna Alvarenga DPM [address] [place] [address] Consulting Physician Foot and Ankle Surg 05/04/24 Ariadne Shook, ROSITA [address] [place] [address] Nurse Practitioner Neurology 06/01/24 Tabby Light, RN [address] [place] [address] [address] [place] [address] Sales Teacher 07/05/24 Junior Tobin MD [address] [facility] [address] [place] [address] Consulting Physician Urology 07/21/24 documented as of this encounter
--- OUTSIDE RECORDS SUMMARY | 2025-02-14 17:49 | XMS_ITS | Encounter Summary ---
Author Organization [facility] Address [address] [place] [address] Phone Care Team Providers Care Recorder Of Deeds Name Role Phone Anila Patino MD Primary Care Provider [phone] Salomon Medrano MD Unavailable [phone] Rosalinda Looney MD Unavailable Shaquille Blanco MD Unavailable Lit Singer MD Unavailable [phone] Johan Marti MD Unavailable Tino Still MD Unavailable Matt Richardson DO Unavailable [phone] Pema Gill MD Unavailable [phone] Jus Patel MD Unavailable Haja Luciano MD Unavailable [phone] Yasmine Yanes MD Unavailable [phone] Yasmine Yanes MD Unavailable [phone] Samantha Mir RN Unavailable Unavailable Tabby Mcclendon MD Unavailable Haja Page MD PhD Unavailable + Pema Gill MD Unavailable +[phone] Chandler Trejo MD Unavailable [phone] Johan Marti MD Unavailable [phone] Bouchra Ariadne Chowdary CITY DETECTIVE Unavailable [phone] Pema Gill MD Unavailable +[phone] Hero Jackman MD Unavailable Ronal Jackson MD Unavailable Kristen Perez MD Unavailable [phone] Ryan Sanders MD Unavailable Geovanna AlvarengaM Unavailable [phone] [facility] Ricarda CITY DETECTIVE Unavailable [phone] Tabby Light RN Unavailable [phone] Junior Tobin MD Unavailable Encounter Details Date Type Department Care Team (Latest Contact Info) Description 03/30/2021 Orders Only [facility] Scanning, Provider Social History Tobacco Use Types Packs/Day Years Used Date Smoking Tobacco: Never Smokeless Tobacco: Never Alcohol Use Standard Drinks/Week Comments No 0 (1 standard drink = 0.6 oz pure alcohol) occassional mixed drink for special occassions Social Connection and Isolation Panel Answer Date Recorded In a typical week, how many times do you talk on the phone with family, friends, or neighbors? More than three times a week 07/07/2020 How often do you get togethe r with friends or relatives? More than three times a week 07/07/2020 How often do you attend chur or restorationist services? More than 4 times per year 07/07/2020 Do you belong to any clubs o r organizations such as catholic groups, unions, fraternal or athletic groups, or school groups? No 07/07/2020 How often do you attend meet ings of the clubs or organizations you belong to? Never 07/07/2020 Marital Status Not on file 07/07/2020 Overall Financial Resource Strain (CARDIA) Answe r Date Recorded How hard is it for you to pa y for the very basics like food, housing, medical care, and heating? Not hard at all 07/07/2020 PHQ-2 Answer Date Recorded PHQ-2 Total Score (If total score is 3 or more points, staff should administer the PHQ-9) 0 12/21/2020 Hunger Vital Sign Answer Date Recorded Within the past 12 months, y ou worried that your food would run out before you got the money to buy more. Never true 07/07/19 21 Within the past 12 months, t he food you bought just didn't last and you didn't have money to get more. Never true 07/07/2020 PRAPARE - Transportation Answer Date Re corded In the past 12 months, has l ack of transportation kept you from medical appointments or from getting medications? No 06/17 In the past 12 months, has l ack of transportation kept you from meetings, work, or from getting things needed for daily living? No 07/07/2020 Comments No Sex and Gender Information Value Date Recorded Sex Assigned at Not on file Legal Sex Female 4:42 AM KITCHEN CHEF Gender Identity Female 03/06/2022 7:30 PM CDT Sexual Orientation Straight 03/06/2022 7: 30 PM CDT Occupation Industry Job Start Date Job End Date disabled Not on file Not on file Not on file documented as of this encounter Plan of Treatment Upcoming Encounters Date Type Department Care Team (Late st Contact Info) Description 09/07/2025 Orders Only [facility] [address] [place] [id number] Scanning, Provider documented as of this encounter Procedures Procedure Name Priority Date/Time Associated Diagnosis Comments SLEEP LAB/STUDY - RESULT 03/30/2021 documented in this encounter Results * SLEEP LAB/STUDY - RESULT (03/30/2021) us Provider Scanning Final Result documented in this encounter Visit Diagnoses Not on filedocumented in this encounter Additional Health Concerns Infection Onset Date Last Indicated Resolved Time COVID: Suspected 08/15/2021 08/15/2021 08/16/2021 3:05 AM KITCHEN CHEF COVID: Suspected 05/20/2022 05/20/2022 05/20/2022 2:35 PM KITCHEN CHEF COVID19 05/20/2022 05/20/2022 05/30/2022 3:05 AM KITCHEN CHEF COVID: Recovered Comment:Added based on recent COVID infection. 05/30/2022 05/30/2022 08/28/2022 3:05 AM C DT COVID: Suspected 01/13/2023 01/14/2023 01/14/2023 3:05 AM CDT COVID: Suspected 05/02/2023 05/02/2023 05/02/2023 5:51 PM KITCHEN CHEF COVID: Suspected 10/10/2023 10/10/2023 10/10/2023 4:01 PM CDT COVID: Suspected 12/06/2024 12/06/2024 12/06/2024 12:57 PM CDT documented as of this encounter Care Teams Recorder Of Deeds Relationship Specialty Start Date End Date Anila Pation MD PCP - General 09/13/16 Salomon Medrano MD [address] [facility] [address] [place] [address] Rheumatology 01/02/17 Rosalinda Looney MD [address] [facility] [address] [place] [address] Psychiatry 01/02/17 [place] [address] [facility] [address] [place] [address] Surgeon Orthopedic Surgery 01/02/17 01/27/22 [place] [address] [facility] [address] [place] [address] Radiation Oncology 01/02/[address] [place] [address] [facility] [address] [place] [address] Neurosurgery 01/02/17 Tino Still MD [address] [place] [address] [address] BRIAN [address] [facility] [address] [place] [address] Surgeon Orthopedic Surgery 09/19/17 Matt Richardson DO [address] [place] [address] [address] BRIAN Eagle [facility] [address] [place] [address] Consulting Physician Gastroenterology 12/10/19 Pema Gill MD [address] [place] [address] Fellow Pulmonary Disease 01/21/20 02/18/24 Jus Patel MD [address] [place] [address] Consulting Physician Urology 01/21/20 02/05/23 Haja Luciano MD [address] [place] [address] Consulting Physician Cardiovascular Disease 12/21/20 Yasmine Yanes MD [address] [place] [address] Consulting Physician Cardiology 07/23/21 Yasmine Yanes MD [address] [place] [address] Consulting Physician Cardiology 07/23/21 01/27/22 Samantha Mir RN Registered Nurse Pulmonary Disease 01/10/22 02/18/24 Tabby Mcclendon MD [address] [place] [address] Loss Prevention Supervisor Obstetrics and Gynecology 01/28/22 07/30/22 Haja Page MD PhD [address] [place] [address] Consulting Physician Neurology 05/04/22 05/03/24 Pema Gill MD [address] [place] [address] Fellow Pulmonary Disease 06/21/22 07/30/22 Chandler Trejo MD [address] [place] [address] [place] [address] Consulting Physician Gastroenterology 07/31/22 02/18/24 Johan Marti MD [address] [place] [address] [place] [address] Referring Physician Neurosurgery 02/06/23 05/03/24 Ariadne Shook, ROSITA [address] [place] [address] Nurse Practitioner Neurology 07/22/23 05/03/24 Pema Gill MD [address] [place] [address] Fellow Pulmonary Disease 07/22/23 07/22/23 Hero Jackman MD [address] [facility] SLEEP [facility], [facility] [address] [place] [address] Consulting Physician Sleep Medicine 07/22/23 Ronal Jackson MD [address] [place] [address] Consulting Physician Pulmonary Disease 02/19/24 Kristen Perez MD [address] [place] [address] Anesthesiologist Pain Management 02/19/24 Ryan Sanders MD [address] [address] Consulting Physician Urology 05/04/22 Geovanna Alvarenga DPM [address] [place] [address] Consulting Physician Foot and Ankle Surg 05/04/24 Ariadne Shook NP [address] [place] [address] Nurse Practitioner Neurology 06/01/24 Tabby Light RN [address] [place] [address] [address] [place] [address] Jig Bore Tool Maker 07/05/24 Junior Tobin MD [address] [place] [address] Consulting Physician Urology 07/21/24 documented as of this encounter
--- OUTSIDE RECORDS SUMMARY | 2025-02-14 17:49 | XMS_ITS | Encounter Summary ---
Author Organization [facility] Address [address] [place] [address] Phone Care Team Providers Care Carpenter Name Role Phone Anila Patino MD Primary Care Provider [phone] Salomon Medrano MD Unavailable [phone] Rosalinda Looney MD Unavailable Shaquille Blanco MD Unavailable Lit Singer MD Unavailable Johan Marti MD Unavailable Tino Still MD Unavailable [phone] Matt Richardson DO Unavailable [phone] Pema Gill MD Unavailable [phone] Jus Patel MD Unavailable Haja Luciano MD Unavailable Yasmine Yanes MD Unavailable [phone] Yasmine Yanes MD Unavailable [phone] Samantha Mir RN Unavailable Unavailable Tabby Mcclendon MD Unavailable Haja Page MD PhD Unavailable + Pema Gill MD Unavailable +[phone] Chandler Trejo MD Unavailable [phone] Johan Marti MD Unavailable [phone] Bouchra Ariadne Chowdary COMPUTER ART INSTRUCTOR Unavailable [phone] Pema Gill MD Unavailable +[phone] Hero Jackman MD Unavailable Ronal Jackson MD Unavailable Kristen Perez MD Unavailable [phone] Ryan Sanders MD Unavailable Geovanna AlvarengaM Unavailable [phone] [facility] Ricarda COMPUTER ART INSTRUCTOR Unavailable [phone] Tabby Light RN Unavailable [phone] Junior Tobin MD Unavailable Encounter Details Date Type Department Care Team (Latest Contact Info) Description 12/20/2020 Orders Only [facility] Scanning, Provider [...] How often do you attend chur or latter-day services? More than 4 times per year 07/07/2020 Do you belong to any clubs o r organizations such as temple groups, unions, fraternal or athletic groups, or [...] on file Legal Sex Female 4:42 AM PAD EXTRACTOR TENDER Gender Identity Female 03/06/2022 7:30 PM CDT Sexual Orientation Straight 03/06/2022 7: 30 PM CDT Occupation Industry Job Start Date Job End Date disabled Not on file Not on file Not on file documented as of this encounter Plan of Treatment Upcoming Encounters Date Type Department Care Team (Late st Contact Info) Description 09/07/2025 Orders Only [facility] [address] [place] [id number] Scanning, Provider documented as of this encounter Procedures Procedure Name Priority Date/Time Associated Diagnosis Comments CARDIOLOGY DOCUMENT SCAN 12/20/2020 documented in this encounter Results * SCAN - CARDIOLOGY (12/20/2020) Anatomical Region Laterality Modality Other us Provider Scanning CV CARDIAC SERVICES PROCEDURES Final Result documented in this encounter Visit Diagnoses Not on filedocumented in this encounter Additional Health Concerns Infection Onset Date Last Indicated Resolved Time COVID: Suspected 03/15/2021 03/15/2021 03/15/2021 8:52 AM CDT COVID: Suspected 08/15/2021 08/15/2021 08/16/2021 3:05 AM PAD EXTRACTOR TENDER COVID: Suspected 05/20/2022 05/20/2022 05/20/2022 2:35 PM PAD EXTRACTOR TENDER COVID19 05/20/2022 05/20/2022 05/30/2022 3:05 AM PAD EXTRACTOR TENDER COVID: Recovered Comment:Added based on recent COVID infection. 05/30/2022 05/30/2022 08/28/2022 3:05 AM C DT COVID: Suspected 01/13/2023 01/14/2023 01/14/2023 3:05 AM CDT COVID: Suspected 05/02/2023 05/02/2023 05/02/2023 5:51 PM PAD EXTRACTOR TENDER COVID: Suspected 10/10/2023 10/10/2023 10/10/2023 4:01 PM CDT COVID: Suspected 12/06/2024 12/06/2024 12/06/2024 12:57 PM CDT documented as of this encounter Care Teams Carpenter Relationship Specialty Start Date End Date Anila Patino MD PCP - General 09/13/16 Salomon Medrano MD [address] [facility] [address] [place] [address] Rheumatology 01/02/17 Rosalinda Looney MD [address] [facility] [address] [place] [address] Psychiatry 01/02/17 [place] [address] [address] Surgeon Orthopedic Surgery 01/02/17 01/27/22 [place] [address] [address] Radiation Oncology 01/02/17 [place] [address] [address] Neurosurgery 01/02/17 Tino Still MD [address] [place] [address] DR BRIAN Eagle [facility] [address] [place] [address] Surgeon Orthopedic Surgery 09/19/17 Matt Richardson DO [address] [place] [address] [address] BRIAN Eagle [address] [address] Consulting Physician Gastroenterology 12/10/19 Pema Gill MD [address] [place] [address] Fellow Pulmonary Disease 01/21/20 02/18/24 Jus Patel MD [address] [place] [address] Consulting Physician Urology 01/21/20 02/05/23 Haja Luciano MD [address] [place] [address] Consulting Physician Cardiovascular Disease 12/21/20 Yasmine Yanes MD [address] [place] [address] Consulting Physician Cardiology 07/23/21 Yasmine Yanes MD [address] [place] [address] Consulting Physician Cardiology 07/23/21 01/27/22 Samantha Mir, CARINA Registered Nurse Pulmonary Disease 01/10/22 02/18/24 Tabby Mcclendon MD [address] [place] [address] Vitreo Retinal Surgeon Obstetrics and Gynecology 01/28/22 07/30/22 Haja Page MD PhD [address] [place] [address] Consulting Physician Neurology 05/04/22 05/03/24 Pema Gill MD [address] [place] [address] Fellow Pulmonary Disease 06/21/22 07/30/22 Chandler Trejo MD [address] [facility] [address] [place] [address] Consulting Physician Gastroenterology 07/31/22 02/18/24 Johan Marti MD [address] [facility] [place] [address] Referring Physician Neurosurgery 02/06/23 05/03/24 Ariadne hSook, ROSITA [address] [place] [address] Nurse Practitioner Neurology 07/22/23 05/03/24 Pema Gill MD [address] [place] [address] Fellow Pulmonary Disease 07/22/23 07/22/23 Hero Jackman MD [address] [facility], [facility] [address] [place] [address] Consulting Physician Sleep Medicine 07/22/23 Ronal Jackson MD [address] [place] [address] Consulting Physician Pulmonary Disease 02/19/24 Kristen ePrez MD [address] [place] [address] Anesthesiologist Pain Management 02/19/24 Ryan Sanders MD [address] [id number] Consulting Physician Urology 05/04/22 Geovanna Alvarenga DPM [address] [place] [address] Consulting Physician Foot and Ankle Surg 05/04/24 Ariadne Shook NP [address] [place] [address] Nurse Practitioner Neurology 06/01/24 Tabby Light RN [address] [facility] [address] [place] [address] Credit Collections Specialist 07/05/24 Junior Tobin MD [address] [place] [address] Consulting Physician Urology 07/21/24 documented as of this encounter
--- OUTSIDE RECORDS SUMMARY | 2025-02-14 17:49 | XMS_ITS | Encounter Summary ---
Author Organization [facility] Address [address] [facility] [place] [address] Phone Care Team Providers Care Feather Trimmer Name Role Phone Anila Patino MD Primary Care Provider [phone] Tj Bonner MD Unavailable [phone] Srinath RodriguezM Unavailable [phone] Buster Xiong Unavailable Unavailable Barrington Yanez MD Unavailable Vannessa Nunez RN Unavailable Unavailcharito Quinn III, MD, Courtney Unavailable [phone] Haja Jones MD Unavailable [phone] Encounter Details Date Type Department Care Team (Late st Contact Info) Description 12/15/2020 Transcribe [facility] Ad[facility] 1 [place] [address] Pema Gill MD [address] [address] Obstructive chronic bronchitis without exacerbation (HCC) (Primary Dx) Social History Tobacco Use Types Packs/Day Years Used Date Smoking Tobacco: Never Smokeless Tobacco: Never Alcohol Use Standard Drinks/Week Comments Yes 0 (1 standard drink = 0.6 oz pur e alcohol) rarely PHQ-2 Answer Date Recorded Total Score - Questions 1-9 1 09/2020 Sexually Active Control Partners Comments Yes Male Comments No Sex and Gender Information Value Date Recorded Sex Assigned at Not on file Legal Sex Female 11:49 PM CDT Gender Identity Not on file Sexual Orientation Not on file documented as of this encounter Plan of Treatment Upcoming Encounters Date Type Department Care Team (Late st Contact Info) Description 03/14/2025 11:30 AM CDT Office Visit [facility] [address] [place] [address] Haja Jones MD [address] [address] [facility] [address] [place] [address] documented as of this encounter Visit Diagnoses Diagnosis Obstructive chronic bronchitis without exacerbation (HCC)- Primary Obstructive chronic bronchitis without exacerbation documented in this encounter Additional Health Concerns Infection Onset Date Last Indicated Resolved Time COVID - 19 06/20/2021 06/20/2021 06/20/2021 2:16 PM CASEY SAW OPERATOR Respiratory Rule Out - RPA 06/21/2021 06/21/2021 0 06/21/2021 9:47 PM CASEY SAW OPERATOR COVID - 19 Confirmed 05/24/2022 05/24/2022 022 12:18 AM CASEY SAW OPERATOR COVID - 19 06/24/2023 06/24/2023 07/04/2023 12:1 6 AM CASEY SAW OPERATOR COVID - 19 06/30/2024 06/30/2024 06/30/2024 1:11 AM CASEY SAW OPERATOR C. difficile Rule-Out 07/01/2024 07/01/20242024 5:24 PM CASEY SAW OPERATOR ESBL 11/01/2024 11/01/2024 Assessment Noted Time PHQ-9 Depression Total Score: 1 10/18/19 21 10:30 AM CDT documented as of this encounter Care Teams Feather Trimmer Relationship Specialty Start Date End Date Anila Patino MD [address] [facility] [place] [address] PCP - General Internal Medicine 04/15/15 Tj Bonner MD [address] [facility] [place] [address] Consulting Physician Neurology 09/01/15 05/02/24 Srinath Rodriguez DPM [address] [facility] [place] [address] Podiatry 08/01/16 Buster Xiong [address] [facility] [place] [address] 08/01/16 Barrington Yanez MD [address] [facility] [place] [address] Consulting Physician Pulmonary Disease 09/13/16 Vannessa Nunez RN [place] Leasing Property Manager 10/17/20 03/12/21 Betty Quinn III, MD #[address] [place] [address] Consulting Physician Urology 12/23/22 Haja Jones MD #[address] [facility] [address] [place] [address] Consulting Physician Urology 07/21/23 documented as of this encounter
--- OUTSIDE RECORDS SUMMARY | 2025-02-14 17:49 | XMS_ITS | Encounter Summary ---
Author Organization [place] [facility] Address [address] [place] [address] Phone Care Team Providers Care Farm Operator Name Role Phone Anila Patino MD Primary Care Provider [phone] Salomon Medrano MD Unavailable [phone] Rosalinda Looney MD Unavailable [phone] Barrington Yanez MD Unavailable Shaquille Blanco MD Unavailable Onesimo Magaña MD Unavailable Lit Singer MD Unavailable [phone] Johan Marti MD Unavailable Tino Still MD Unavailable Matthias Christianson MD Unavailable Matt Richardson DO Unavailable [phone] Pema Gill MD Unavailable [phone] Jus Patel MD Unavailable Haja Luciano MD Unavailable [phone] Yasmine Yanes MD Unavailable Yasmine Yanes MD Unavailable [phone] Samantha Mir RN Unavailable Unavailable Tabby Mcclendon MD Unavailable Haja Page MD PhD Unavailable + Pema Gill MD Unavailable [phone] Chandler Trejo MD Unavailable [phone] Johan Marti MD Unavailable +[phone] Ariadne Shook ASPHALT SMOOTHER Unavailable +[phone] Pema Gill MD Unavailable [phone] Hero Jackman MD Unavailable Ronal Jackson MD Unavailable Kristen Perez MD Unavailable [phone] Ryan Sanders MD Unavailable Geovanna AlvarengaM Unavailable +[phone] Ariadne Shook ASPHALT SMOOTHER Unavailable [phone] Tabby Light RN Unavailable [phone] Junior Tobin MD Unavailable Encounter Details Date Type Department Care Team (Late st Contact Info) Description 01/07/2017 Orders Only [facility] [address] [place] [address] Scanning, Provider Social History Tobacco Use Types Packs/Day Years Used Date Smoking Tobacco: Never Smokeless Tobacco: Never Alcohol Use Standard Drinks/Week Comments No 0 (1 standard drink = 0.6 oz pur e alcohol) Comments Unknown Sex and Gender Information Value Date Recorded Sex Assigned at Not on file Legal Sex Female 4:42 AM CARDBOARD CUTTER Gender Identity Female 03/06/2022 7:30 PM CDT Sexual Orientation Straight 03/06/2022 7: 30 PM CDT documented as of this encounter Plan of Treatment Upcoming Encounters Date Type Department Care Team (Late st Contact Info) Description 09/07/2025 Orders Only [facility] [address] [place] [id number] Scanning, Provider documented as of this encounter Procedures Procedure Name Priority Date/Time Associated Diagnosis Comments SCAN - RADIOLOGY/IMAGING 01/07/2017 10:01 AM CDT documented in this encounter Results * SCAN - RADIOLOGY/IMAGING (01/07/2017 10:01 AM CDT) Anatomical Region Laterality Modality Other us Provider Scanning Final Result documented in this encounter Visit Diagnoses Not on filedocumented in this encounter Additional Health Concerns Infection Onset Date Last Indicated Resolved Time COVID: Suspected 08/04/2020 08/04/2020 08/04/2020 2:35 PM CARDBOARD CUTTER COVID: Suspected 10/05/2020 10/05/2020 10/05/2020 1:07 PM CDT COVID: Suspected 12/16/2020 12/16/2020 12/16/2020 3:40 PM CDT COVID: Suspected 03/15/2021 03/15/2021 03/15/2021 8:52 AM CDT COVID: Suspected 08/15/2021 08/15/2021 08/16/2021 3:05 AM CARDBOARD CUTTER COVID: Suspected 05/20/2022 05/20/2022 05/20/2022 2:35 PM CARDBOARD CUTTER COVID19 05/20/2022 05/20/2022 05/30/2022 3:05 AM CARDBOARD CUTTER COVID: Recovered Comment:Added based on recent COVID infection. 05/30/2022 05/30/2022 08/28/2022 3:05 AM C DT COVID: Suspected 01/13/2023 01/14/2023 01/14/2023 3:05 AM CDT COVID: Suspected 05/02/2023 05/02/2023 05/02/2023 5:51 PM CARDBOARD CUTTER COVID: Suspected 10/10/2023 10/10/2023 10/10/2023 4:01 PM CDT COVID: Suspected 12/06/2024 12/06/2024 12/06/2024 12:57 PM CDT documented as of this encounter Care Teams Farm Operator Relationship Specialty Start Date End Date Anila Patino MD PCP - General 09/13/16 Salomon Medrano MD [address] [facility] [address] [place] [address] Rheumatology 01/02/17 Rosalinda Looney MD [address] [facility] [address] [place] [address] Psychiatry 01/02/17 Barrington Yanez MD [address] [facility] [address] [place] [address] Pulmonary Disease 01/02/17 01/20/20 [place] [address] [address] Surgeon Orthopedic Surgery 01/02/17 01/27/22 [place] [address] [address] Otolaryngology 01/02/17 01/20/20 [place] [address] [address] Radiation Oncology 01/02/17 [place] [address] [address] Neurosurgery 01/02/17 Tino Still MD [address] [place] [address] [address] [address] Surgeon Orthopedic Surgery 09/19/17 [place] [address] [address] Referring Physician Urology 09/19/17 01/20/20 [place] [address] [address] Consulting Physician Gastroenterology 12/10/19 Pema Gill MD [address] [place] [address] Fellow Pulmonary Disease 01/21/20 02/18/24 Jus Patel MD [address] [place] [address] Consulting Physician Urology 01/21/20 02/05/23 Haja Luciano MD [address] [place] [address] Consulting Physician Cardiovascular Disease 12/21/20 Yasmine Yanes MD [address] [place] [address] Consulting Physician Cardiology 07/23/21 Yasmine Yanes MD [address] [place] [address] Consulting Physician Cardiology 07/23/21 01/27/22 Samantha Mir RN Registered Nurse Pulmonary Disease 01/10/22 02/18/24 Tabby Mcclendon MD [address] [place] [address] Core Inspector Obstetrics and Gynecology 01/28/22 07/30/22 Haja Page MD PhD [address] [place] [address] Consulting Physician Neurology 05/04/22 05/03/24 Pema Gill MD [address] [place] [address] Fellow Pulmonary Disease 06/21/22 07/30/22 Chandler Trejo MD 4 [facility] [place] [address] Consulting Physician Gastroenterology 07/31/22 02/18/24 Johan Marti MD 4 [facility] [address] [place] [address] Referring Physician Neurosurgery 02/06/23 05/03/24 Ariadne Shook, ASPHALT SMOOTHER [address] [place] [address] Nurse Practitioner Neurology 07/22/23 05/03/24 Pema Gill MD [address] [place] [address] Fellow Pulmonary Disease 07/22/23 07/22/23 Hero Jackman MD [address] [facility] NEUROLOGY SLEEP [facility], [facility] [address] [place] [address] Consulting Physician Sleep Medicine 07/22/23 Ronal Jackson MD [address] [place] [address] Consulting Physician Pulmonary Disease 02/19/24 Kristen Perez MD [address] [place] [address] Anesthesiologist Pain Management 02/19/24 Ryan Sanders MD [address] [address] Consulting Physician Urology 05/04/22 Geovanna Alvarenga DPM [address] [place] [address] Consulting Physician Foot and Ankle Surg 05/04/24 Ariadne Shook NP [address] [place] [address] Nurse Practitioner Neurology 06/01/24 Tabby Light RN [address] [place] [address] [facility] [address] [place] [address] Talent Acquisition Administrator 07/05/24 Junior Tobin MD [address] [place] [address] Consulting Physician Urology 07/21/24 documented as of this encounter
--- OUTSIDE RECORDS SUMMARY | 2025-02-14 17:49 | XMS_ITS | Encounter Summary ---
Author Organization [facility] Address [address] [facility] [address] [place] [address] Care Team Providers Care Manager Zone Name Role Phone Anila Patino MD Primary Care Provider + [phone] Anila Patino MD Primary Care Provider Salomon Medrano MD Unavailable [phone] Rosalinda Looney MD Unavailable [phone] Barrington Yanez MD Unavailable Shaquille Blanco MD Unavailable Onesimo Magaña MD Unavailable [phone] Lit Singer MD Unavailable Johan Marti MD Unavailable Tino Still MD Unavailable Matthias Christianson MD Unavailable Matt Richardson DO Unavailable [phone] Pema Gill MD Unavailable [phone] Jus Patel MD Unavailable Haja Luciano MD Unavailable Yasmine Yanes MD Unavailable [phone] JoaquínYasmine MD Unavailable [phone] Samantha Mir RN Unavailable Unavailable Tabby Mcclendon MD Unavailable Haja Page MD PhD Unavailable + Pema Gill MD Unavailable [phone] Chandler Trejo MD Unavailable [phone] Johan Marti MD Unavailable [phone] Ariadne Shook FAMILY SERVICES SPECIALIST Unavailable +[phone] Pema Gill MD Unavailable [phone] Hero Jackman MD Unavailable Ronal Jackson MD Unavailable Kristen Perez MD Unavailable [phone] Ryan Sanders MD Unavailable Geovanna AlvarengaM Unavailable [phone] [facility] FAMILY SERVICES SPECIALIST Unavailable [phone] Tabby Light RN Unavailable [phone] Junior Tobin MD Unavailable Encounter Details Date Type Department Care Team (Late st Contact Info) Description 08/13/2016 Orders Only [facility] ProviderAnastacio MD [address] [place] [address] Social History Tobacco Use Types Packs/Day Years Used Date Smoking Tobacco: Never Alcohol Use Standard Drinks/Week Comments No 0 (1 standard drink = 0.6 oz pur e alcohol) Comments Unknown Sex and Gender Information Value Date Recorded Sex Assigned at Not on file Legal Sex Female 4:42 AM 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 TECHNICIAN Gender Identity Female 03/06/2022 7:30 PM CDT Sexual Orientation Straight 03/06/2022 7: 30 PM CDT documented as of this encounter Plan of Treatment Upcoming Encounters Date Type Department Care Team (Late st Contact Info) Description 09/07/2025 Orders Only [facility] [address] [place] [address] Scanning, Provider documented as of this encounter Procedures Procedure Name Priority Date/Time Associated Diagnosis Comments CARDIOLOGY REPORT 08/13/2016 CARDIOLOGY REPORT 08/13/2016 documented in this encounter Results * CARDIOLOGY REPORT (08/13/2016) Anatomical Region Laterality Modality Other Narrative 08/13/2016 Ordered by an unspecified provider. us Historical Provider CV CARDIAC SERVICES PROCE DURES Final Result * CARDIOLOGY REPORT (08/13/2016) Anatomical Region Laterality Modality Other Narrative 08/13/2016 Ordered by an unspecified provider. us Historical Provider CV CARDIAC SERVICES PROCE DURES Final Result documented in this encounter Visit Diagnoses Not on filedocumented in this encounter Additional Health Concerns Infection Onset Date Last Indicated Resolved Time COVID: Suspected 08/04/2020 08/04/2020 08/04/2020 2:35 PM ATM TECHNICIAN COVID: Suspected 10/05/2020 10/05/2020 10/05/2020 1:07 PM CDT COVID: Suspected 12/16/2020 12/16/2020 12/16/2020 3:40 PM CDT COVID: Suspected 03/15/2021 03/15/2021 03/15/2021 8:52 AM CDT COVID: Suspected 08/15/2021 08/15/2021 08/16/2021 3:05 AM ATM TECHNICIAN COVID: Suspected 05/20/2022 05/20/2022 05/20/2022 2:35 PM ATM TECHNICIAN COVID19 05/20/2022 05/20/2022 05/30/2022 3:05 AM ATM TECHNICIAN COVID: Recovered Comment:Added based on recent COVID infection. 05/30/2022 05/30/2022 08/28/2022 3:05 AM C DT COVID: Suspected 01/13/2023 01/14/2023 01/14/2023 3:05 AM CDT COVID: Suspected 05/02/2023 05/02/2023 05/02/2023 5:51 PM ATM TECHNICIAN COVID: Suspected 10/10/2023 10/10/2023 10/10/2023 4:01 PM CDT COVID: Suspected 12/06/2024 12/06/2024 12/06/2024 12:57 PM CDT documented as of this encounter Care Teams Manager Zone Relationship Specialty Start Date End Date Anila Patino MD PCP - General 09/13/16 Anila Patino MD PCP - General 08/12/11 09/12/16 Salomon Medrano MD [address] [facility] [address] [place] [address] Rheumatology 01/02/17 Rosalinda Looney MD [address] [facility] [address] [place] [address] Psychiatry 01/02/17 Barrington Yanez MD [address] [facility] [address] [place] [address] Pulmonary Disease 01/02/17 01/20/20 [place] [address] [address] [place] [address] Surgeon Orthopedic Surgery 01/02/17 01/27/22 [place] [address] [address] [place] [address] Otolaryngology 01/02/17 01/20/20 [place] [address] [facility] [address] [place] [address] Radiation Oncology 01/02/17 [place] [address] [facility] [address] [place] [address] Neurosurgery 01/02/17 Tino Still MD [address] [place] [address] [address] [facility] [address] [place] [address] Surgeon Orthopedic Surgery 09/19/17 [place] [address] [facility] [address] [place] [address] Referring Physician Urology 09/19/17 01/20/20 [place] [address] [facility] [address] [place] [address] Consulting Physician Gastroenterology 12/10/19 Pema Gill MD [address] [place] [address] Fellow Pulmonary Disease 01/21/20 02/18/24 Jus Patel MD [address] [place] [address] Consulting Physician Urology 01/21/20 02/05/23 Haja Luciano MD [address] [place] [address] Consulting Physician Cardiovascular Disease 12/21/20 Yasmine Yanes MD [address] [place] [address] Consulting Physician Cardiology 07/23/21 Yasmine Yanes MD [address] [place] [address] Consulting Physician Cardiology 07/23/21 01/27/22 Samantha Mir, RN Registered Nurse Pulmonary Disease 01/10/22 02/18/24 Tabby Mcclendon MD [address] [place] [address] Drain Cleaner Plumber Obstetrics and Gynecology 01/28/22 07/30/22 Haja Page MD PhD [address] [place] [address] Consulting Physician Neurology 05/04/22 05/03/24 Pema Gill MD [address] [place] [address] Fellow Pulmonary Disease 06/21/22 07/30/22 Chandler Trejo MD [address] [place] [address] [place] [address] Consulting Physician Gastroenterology 07/31/22 02/18/24 Johan Marti MD [address] [place] [address] [place] [address] Referring Physician Neurosurgery 02/06/23 05/03/24 Ariadne Shook, ROSITA [address] [place] [address] Nurse Practitioner Neurology 07/22/23 05/03/24 Pema Gill MD [address] [place] [address] Fellow Pulmonary Disease 07/22/23 07/22/23 Hero Jackman MD [address] [facility] NEUROLOGY SLEEP [facility], [facility] [address] [place] [address] Consulting Physician Sleep Medicine 07/22/23 Ronal Jackson MD [address] [place] [address] Consulting Physician Pulmonary Disease 02/19/24 Kristen Perez MD [address] [place] [address] Anesthesiologist Pain Management 02/19/24 Ryan Sanders MD [address] [place] [address] Consulting Physician Urology 05/04/22 Geovanna Alvarenga DPM [address] [place] [address] Consulting Physician Foot and Ankle Surg 05/04/24 Ariadne Shook NP [address] [place] [address] Nurse Practitioner Neurology 06/01/24 Tabby Light RN [address] [place] [address] [address] [place] [address] Bottle Packing Machine Cleaner 07/05/24 Junior Tobin MD [address] [address] Consulting Physician Urology 07/21/24 documented as of this encounter
--- OUTSIDE RECORDS SUMMARY | 2025-02-14 17:49 | XMS_ITS | Encounter Summary ---
Author Organization [facility] Address [address] [place] [address] Phone Care Team Providers Care Pneumatic Tube Repairer Name Role Phone Anila Patino MD Primary Care Provider [phone] Salomon Medrano MD Unavailable [phone] Rosalinda Looney MD Unavailable Shaquille Blanco MD Unavailable Lit Singer MD Unavailable [phone] Johan Marti MD Unavailable Tino Still MD Unavailable Matt Richardson DO Unavailable [phone] Pema Gill MD Unavailable [phone] Jus Patel MD Unavailable [phone] Haja Luciano MD Unavailable Yasmine Yanes MD Unavailable Yasmine Yanes MD Unavailable Samantha Mir RN Unavailable Unavailable Tabby Mcclendon MD Unavailable Haja Page MD PhD Unavailable + Pema Gill MD Unavailable [phone] Chandler Trejo MD Unavailable [phone] Johan Marti MD Unavailable [phone] MichaelAriadne palencia Ricarda ORGANIC SEARCH LEAD Unavailable [phone] Pema Gill MD Unavailable [phone] Hero Jackman MD Unavailable Ronal Jackson MD Unavailable Kristen Perez MD Unavailable [phone] Ryan Sanders MD Unavailable Geovanna AlvarengaM Unavailable [phone] [facility] Ricarda ORGANIC SEARCH LEAD Unavailable [phone] Tabby Light RN Unavailable [phone] Junior Tobin MD Unavailable Encounter Details Date Type Department Care Team (Late st Contact Info) Description 05/24/2020 Orders Only [facility] [address] [place] [address] Scanning, Provider Social History Tobacco Use Types Packs/Day Years Used Date Smoking Tobacco: Never Smokeless Tobacco: Never Alcohol Use Standard Drinks/Week Comments No 0 (1 standard drink = 0.6 oz pure alcohol) occassional mixed drink for special occassions PHQ-2 Answer Date Recorded PHQ-2 Total Score (If total score is 3 or more points, staff should administer the PHQ-9) 0 12/10/2019 Comments No Sex and Gender Information Value Date Recorded Sex Assigned at Not on file Legal Sex Female 4:42 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 Gender Identity Female 03/06/2022 7:30 PM CDT Sexual Orientation Straight 03/06/2022 7: 30 PM CDT Occupation Industry Job Start Date Job End Date disabled Not on file Not on file Not on file documented as of this encounter Plan of Treatment Upcoming Encounters Date Type Department Care Team (Late st Contact Info) Description 09/07/2025 Orders Only [facility] [address] [place] [address] Scanning, Provider documented as of this encounter Procedures Procedure Name Priority Date/Time Associated Diagnosis Comments SCAN - LABS 05/24/2020 documented in this encounter Results * SCAN - LABS (05/24/2020) us Provider Scanning Final Result documented in this encounter Visit Diagnoses Not on filedocumented in this encounter Additional Health Concerns Infection Onset Date Last Indicated Resolved Time COVID: Suspected 08/04/2020 08/04/2020 08/04/2020 2:35 PM SHIPPING PROCESSOR COVID: Suspected 10/05/2020 10/05/2020 10/05/2020 1:07 PM CDT COVID: Suspected 12/16/2020 12/16/2020 12/16/2020 3:40 PM CDT COVID: Suspected 03/15/2021 03/15/2021 03/15/2021 8:52 AM CDT COVID: Suspected 08/15/2021 08/15/2021 08/16/2021 3:05 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 COVID: Suspected 05/20/2022 05/20/2022 05/20/2022 2:35 PM SHIPPING PROCESSOR COVID19 05/20/2022 05/20/2022 05/30/2022 3:05 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 COVID: Recovered Comment:Added based on recent COVID infection. 05/30/2022 05/30/2022 08/28/2022 3:05 AM C DT COVID: Suspected 01/13/2023 01/14/2023 01/14/2023 3:05 AM CDT COVID: Suspected 05/02/2023 05/02/2023 05/02/2023 5:51 PM SHIPPING PROCESSOR COVID: Suspected 10/10/2023 10/10/2023 10/10/2023 4:01 PM CDT COVID: Suspected 12/06/2024 12/06/2024 12/06/2024 12:57 PM CDT documented as of this encounter Care Teams Pneumatic Tube Repairer Relationship Specialty Start Date End Date Anila Patino MD PCP - General 09/13/16 Salomon Medrano MD [address] [facility] [address] [place] [address] Rheumatology 01/02/17 Rosalinda Looney MD [address] [facility] [address] [place] [address] Psychiatry 01/02/17 [place] [address] [address] [facility] [address] [place] [address] Surgeon Orthopedic Surgery 01/02/17 01/27/22 [place] [address] [address] [facility] [address] [place] [address] Radiation Oncology 01/02/17 [place] [address] [address] [facility] [address] [place] [address] Neurosurgery 01/02/17 Tino Still MD [address] [place] [address] [address] [place] [address] Surgeon Orthopedic Surgery 09/19/17 Matt Richardson DO [address] [place] [address] [address] [place] [address] Consulting Physician Gastroenterology 12/10/19 Pema Gill MD [address] [place] [address] Fellow Pulmonary Disease 01/21/20 02/18/24 Jus Patel MD [address] [place] [address] Consulting Physician Urology 01/21/20 02/05/23 Haja Luciano MD [address] [place] [address] Consulting Physician Cardiovascular Disease 12/21/20 Yasmine Yanes MD [address] [place] [address] Consulting Physician Cardiology 07/23/21 Yasmine Yanes MD [address] [place] [address] Consulting Physician Cardiology 07/23/21 01/27/22 Samatnha Mir, RN Registered Nurse Pulmonary Disease 01/10/22 02/18/24 Tabby Mcclendon MD [address] [place] [address] Playback Operator Obstetrics and Gynecology 01/28/22 07/30/22 Haja Page MD PhD [address] [place] [address] Consulting Physician Neurology 05/04/22 05/03/24 Pema Gill MD [address] [place] [address] Fellow Pulmonary Disease 06/21/22 07/30/22 Chandler Trejo MD [address] [facility] [place] [address] Consulting Physician Gastroenterology 07/31/22 02/18/24 Johan Marti MD [address] [place] [address] [address] [place] [address] Referring Physician Neurosurgery 02/06/23 05/03/24 Ariadne Shook, ROSITA [address] [place] [address] Nurse Practitioner Neurology 07/22/23 05/03/24 Pema Gill MD [address] [place] [address] Fellow Pulmonary Disease 07/22/23 07/22/23 Hero Jackman MD [address] [facility] NEUROLOGY SLEEP [facility], [facility] [address] [place] [address] Consulting Physician Sleep Medicine 07/22/23 Ronal Jackson MD [address] [place] [address] Consulting Physician Pulmonary Disease 02/19/24 Kristen Perez MD [address] [place] [address] Anesthesiologist Pain Management 02/19/24 Ryan Sanders MD [address] [place] [address] [address] [place] [address] Consulting Physician Urology 05/04/22 Geovanna Alvarenga, DPM [address] [place] [address] Consulting Physician Foot and Ankle Surg 05/04/24 Ariadne Shook, ROSITA [address] [place] [address] Nurse Practitioner Neurology 06/01/24 Tabby Light RN [address] [place] [address] [address] [place] [address] Terry Cloth Cutter Hand 07/05/24 Junior Tobin MD [address] [address] Consulting Physician Urology 07/21/24 documented as of this encounter
--- OUTSIDE RECORDS SUMMARY | 2025-02-14 17:49 | XMS_ITS | Encounter Summary ---
Author Organization [place] [facility] Address [address] [place] [address] Phone Care Team Providers Care Assignment Officer Name Role Phone Anila Patino MD Primary Care Provider [phone] Salomon Medrano MD Unavailable [phone] Rosalinda Looney MD Unavailable Shaquille Blanco MD Unavailable Lit Singer MD Unavailable Johan Marti MD Unavailable Tino Still MD Unavailable Matt Richardson DO Unavailable [phone] Pema Gill MD Unavailable [phone] Jus Patel MD Unavailable Haja Luciano MD Unavailable [phone] Yasmine Yanes MD Unavailable Yasmine Yanes MD Unavailable Samantha Mir RN Unavailable Unavailable Tabby Mcclendon MD Unavailable Haja Page MD PhD Unavailable + Pema Gill MD Unavailable [phone] Chandler Trejo MD Unavailable [phone] Johan Marti MD Unavailable +[phone] MichaelAriadne palencia Ricarda BIOLOGY PROFESSOR Unavailable [phone] Pema Gill MD Unavailable [phone] Hero Jackman MD Unavailable Ronal Jackson MD Unavailable Kristen Perez MD Unavailable [phone] Ryan Sanders MD Unavailable Geovanna AlvarengaM Unavailable [phone] [facility] Ricarda BIOLOGY PROFESSOR Unavailable [phone] Tabby Light RN Unavailable [phone] Junior Tobin MD Unavailable Encounter Details Date Type Department Care Team (Late st Contact Info) Description 05/09/2020 Orders Only [facility] [address] [place] [address] Scanning, Provider Social History Tobacco [...] on file Legal Sex Female 4:42 AM SDV 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/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/DDS 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 Gender Identity Female 03/06/2022 7:30 PM CDT Sexual Orientation Straight 03/06/2022 7: 30 PM CDT Occupation Industry Job Start Date Job End Date disabled Not on file Not on file Not on file documented as of this encounter Plan of Treatment Upcoming Encounters Date Type Department Care Team (Late st Contact Info) Description 09/07/2025 Orders Only [facility] [address] [place] [address] Scanning, Provider documented as of this encounter Procedures Procedure Name Priority Date/Time Associated Diagnosis Comments SCAN - RADIOLOGY/IMAGING 05/09/2020 documented in this encounter Results * SCAN - RADIOLOGY/IMAGING (05/09/2020) Anatomical Region Laterality Modality Other us Provider Scanning Final Result documented in this encounter Visit Diagnoses Not on filedocumented in this encounter Additional Health Concerns Infection Onset Date Last Indicated Resolved Time COVID: Suspected 08/04/2020 08/04/2020 08/04/2020 2:35 PM SDV PILOT/NAVIGATOR/DDS OPERATOR COVID: Suspected 10/05/2020 10/05/2020 10/05/2020 1:07 PM CDT COVID: Suspected 12/16/2020 12/16/2020 12/16/2020 3:40 PM CDT COVID: Suspected 03/15/2021 03/15/2021 03/15/2021 8:52 AM CDT COVID: Suspected 08/15/2021 08/15/2021 08/16/2021 3:05 AM SDV PILOT/NAVIGATOR/DDS OPERATOR COVID: Suspected 05/20/2022 05/20/2022 05/20/2022 2:35 PM SDV PILOT/NAVIGATOR/DDS OPERATOR COVID19 05/20/2022 05/20/2022 05/30/2022 3:05 AM SDV PILOT/NAVIGATOR/DDS OPERATOR COVID: Recovered Comment:Added based on recent COVID infection. 05/30/2022 05/30/2022 08/28/2022 3:05 AM C DT COVID: Suspected 01/13/2023 01/14/2023 01/14/2023 3:05 AM CDT COVID: Suspected 05/02/2023 05/02/2023 05/02/2023 5:51 PM SDV PILOT/NAVIGATOR/DDS OPERATOR COVID: Suspected 10/10/2023 10/10/2023 10/10/2023 4:01 PM CDT COVID: Suspected 12/06/2024 12/06/2024 12/06/2024 12:57 PM CDT documented as of this encounter Care Teams Assignment Officer Relationship Specialty Start Date End Date Anila Patino MD PCP - General 09/13/16 Salomon Medrano MD [address] [facility] [address] [place] [address] Rheumatology 01/02/17 Rosalinda Looney MD [address] [facility] [address] [place] [address] Psychiatry 01/02/17 [place] [address] [address] Surgeon Orthopedic Surgery 01/02/17 01/27/22 [place] [address] [address] Radiation Oncology 01/02/17 [place] [address] [address] [address] Neurosurgery 01/02/17 Tino Still MD [address] [place] [address] [address] [place] [address] Surgeon Orthopedic Surgery 09/19/17 Matt Richardson DO [address] [place] [address] [address] [place] [address] Consulting Physician Gastroenterology 12/10/19 Pema Gill MD [address] [place] [address] Fellow Pulmonary Disease 01/21/20 02/18/24 Jus Patel MD [address] [place] [address] Consulting Physician Urology 01/21/20 02/05/23 Haja Luciano MD [address] [place] [address] Consulting Physician Cardiovascular Disease 12/21/20 Yasmine Yanes MD [address] [place] [address] Consulting Physician Cardiology 07/23/21 Yasmine Yanes MD [address] [place] [address] Consulting Physician Cardiology 07/23/21 01/27/22 Samantha Mir, RN Registered Nurse Pulmonary Disease 01/10/22 02/18/24 Tabby Mcclendon MD [address] [place] [address] Self Propelled Hot Mix Roller Operator Obstetrics and Gynecology 01/28/22 07/30/22 Haja Page MD PhD [address] [place] [address] Consulting Physician Neurology 05/04/22 05/03/24 Pema Gill MD [address] [place] [address] Fellow Pulmonary Disease 06/21/22 07/30/22 Chandler Trejo MD [address] [place] [address] [address] [place] [address] Consulting Physician Gastroenterology 07/31/22 02/18/24 Johan Marti MD [address] [place] [address] [address] [place] [address] Referring Physician Neurosurgery 02/06/23 05/03/24 Ariadne Shook, ROSITA [address] [place] [address] Nurse Practitioner Neurology 07/22/23 05/03/24 Pema Gill MD [address] [place] [address] Fellow Pulmonary Disease 07/22/23 07/22/23 Hero Jackman MD [address] [facility] NEUROLOGY SLEEP MED, [facility] [address] [place] [address] Consulting Physician Sleep Medicine 07/22/23 Ronal Jackson MD [address] [place] [address] Consulting Physician Pulmonary Disease 02/19/24 Kristen Perez MD [address] [place] [address] Anesthesiologist Pain Management 02/19/24 Ryan Sanders MD 2 [facility] [address] [place] [address] Consulting Physician Urology 05/04/22 Geovanna Alvarenga DPM [address] [place] [address] Consulting Physician Foot and Ankle Surg 05/04/24 Ariadne Shook, ROSITA [address] [place] [address] Nurse Practitioner Neurology 06/01/24 Tabby Light, RN [address] [place] [address] [address] [place] [address] Supervisor Extrusion 07/05/24 Junior Tobin MD [address] [place] [phone] Consulting Physician Urology 07/21/24 documented as of this encounter
--- OUTSIDE RECORDS SUMMARY | 2025-02-14 17:49 | XMS_ITS | Encounter Summary ---
Author Organization [place] [facility] Address [address] [place] [address] Phone Care Team Providers Care Research Laboratory Specialist Name Role Phone Anila Patino MD Primary Care Provider [phone] Salomon Medrano MD Unavailable [phone] Rosalinda Looney MD Unavailable Barrington Yanez MD Unavailable Shaquille Blanco MD Unavailable Onesimo Magaña MD Unavailable [phone] Lit Singer MD Unavailable Johan Marti MD Unavailable Tino Still MD Unavailable [phone] Matthias Christianson MD Unavailable Matt Richardson DO Unavailable [phone] Pema Gill MD Unavailable [phone] Jus Patel MD Unavailable [phone] Haja Luciano MD Unavailable Yasmine Yanes MD Unavailable Yasmine Yanes MD Unavailable [phone] Samantha Mir RN Unavailable Unavailable Tabby Mcclendon MD Unavailable Haja Page MD PhD Unavailable + Pema Gill MD Unavailable [phone] Chandler Trejo MD Unavailable [phone] Johan Marti MD Unavailable [phone] [place] Ariadne Ricarda RESEARCH ANALYST Unavailable [phone] Pema Gill MD Unavailable [phone] Hero Jackman MD Unavailable Ronal Jackson MD Unavailable Kristen Perez MD Unavailable [phone] Ryan Sanders MD Unavailable Geovanna AlvarengaM Unavailable +[phone] [facility] Center[facility]one[facility]riadne Ricarda RESEARCH ANALYST Unavailable [phone] Tabby Light RN Unavailable [phone] Junior Tobin MD Unavailable Reason for Referral * Surgical (Routine) - Closed Specialty Diagnoses / Procedures Referred By Contac t Referred To Contact Orthopedic Surgery Diagnoses Spondylolysis, lumbar region Anila Patino MD Phone: tel: fax: Shaquille Blanco MD Phone: tel: fax: Referral ID Status Reason Start Date Expiration Date V isits Requested Visits Authorized [id number] Closed Specialty Services Required 12/11/2016 06/09/2017 12 12 Encounter Details Date Type Department Care Team (Late st Contact Info) Description 12/11/2016 Orders Only [facility] [address] [place] [address] Anila Patino MD [address] [place] [address] Spondylolysis, lumbar region (Primary Dx) Social History Tobacco Use Types Packs/Day Years Used Date Smoking Tobacco: Never Alcohol Use Standard Drinks/Week Comments No 0 (1 standard drink = 0.6 oz pur e alcohol) Comments Unknown Sex and Gender Information Value Date Recorded Sex Assigned at Not on file 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 [address] Scanning, Provider Scheduled Referrals Name Type Priority Associated Diagnoses Order Schedule Ambulatory referral to General Surgery Outpatient Referral Routine Spondylolysis, lumbar region Ordered: 12/11/2016 documented as of this encounter Visit Diagnoses Diagnosis Spondylolysis, lumbar region- Primary Lumbosacral spondylosis without myelopathy documented in this encounter Additional Health Concerns Infection Onset Date Last Indicated Resolved Time COVID: Suspected 08/04/2020 08/04/2020 08/04/2020 2:35 PM MUSIC ENGRAVER COVID: Suspected 10/05/2020 10/05/2020 10/05/2020 1:07 PM CDT COVID: Suspected 12/16/2020 12/16/2020 12/16/2020 3:40 PM CDT COVID: Suspected 03/15/2021 03/15/2021 03/15/2021 8:52 AM CDT COVID: Suspected 08/15/2021 08/15/2021 08/16/2021 3:05 AM MUSIC ENGRAVER COVID: Suspected 05/20/2022 05/20/2022 05/20/2022 2:35 PM MUSIC ENGRAVER COVID19 05/20/2022 05/20/2022 05/30/2022 3:05 AM MUSIC ENGRAVER COVID: Recovered Comment:Added based on recent COVID infection. 05/30/2022 05/30/2022 08/28/2022 3:05 AM C DT COVID: Suspected 01/13/2023 01/14/2023 01/14/2023 3:05 AM CDT COVID: Suspected 05/02/2023 05/02/2023 05/02/2023 5:51 PM MUSIC ENGRAVER COVID: Suspected 10/10/2023 10/10/2023 10/10/2023 4:01 PM CDT COVID: Suspected 12/06/2024 12/06/2024 12/06/2024 12:57 PM CDT documented as of this encounter Care Teams Research Laboratory Specialist Relationship Specialty Start Date End Date Anila Patino MD PCP - General 09/13/16 Salomon Medrano MD [address] [facility] [address] [place] [address] Rheumatology 01/02/17 Rosalinda Looney MD [address] [facility] [address] [place] [address] Psychiatry 01/02/17 Barrington Yanez MD [address] [facility] [address] [place] [address] Pulmonary Disease 01/02/17 01/20/20 [place] [address] [address] [facility] [address] [place] [address] Surgeon Orthopedic Surgery 01/02/17 01/27/22 [place] [address] [address] [facility] [address] [place] [address] Otolaryngology 01/02/17 01/20/20 [place] [address] [facility] [address] [place] [address] Radiation Oncology 01/02/17 [place] [address] [facility] [address] [place] [address] Neurosurgery 01/02/17 Tino Still MD [address] [place] [address] [address] [address] Surgeon Orthopedic Surgery 09/19/17 [place] [address] [facility] [address] [place] [address] Referring Physician Urology 09/19/17 01/20/20 [place] [address] [facility] [address] [place] [address] Consulting Physician Gastroenterology 12/10/19 Pema Gill MD [address] [place] [address] Fellow Pulmonary Disease 01/21/20 02/18/24 Jus Patel MD [address] [place] [address] Consulting Physician Urology 01/21/20 02/05/23 Haja Luciano MD [address] [place] [address] Consulting Physician Cardiovascular Disease 12/21/20 Yasmine Yanes MD [address] [place] [address] Consulting Physician Cardiology 07/23/21 Yasmine Yanes MD [address] [place] [address] Consulting Physician Cardiology 07/23/21 01/27/22 Samantha Mir, CARINA Registered Nurse Pulmonary Disease 01/10/22 02/18/24 Tabby Mcclendon MD [address] [place] [address] Regional Wildlife Agent Obstetrics and Gynecology 01/28/22 07/30/22 Haja Page MD PhD [address] [place] [address] Consulting Physician Neurology 05/04/22 05/03/24 Pema Gill MD [address] [place] [address] Fellow Pulmonary Disease 06/21/22 07/30/22 Chandler Trejo MD [address] [place] [address] [place] [address] Consulting Physician Gastroenterology 07/31/22 02/18/24 Johan Marti MD [address] [place] [address] [place] [address] Referring Physician Neurosurgery 02/06/23 05/03/24 Ariadne Shook, RESEARCH ANALYST [address] [place] [address] Nurse Practitioner Neurology 07/22/23 05/03/24 Pema Gill MD [address] [place] [address] Fellow Pulmonary Disease 07/22/23 07/22/23 Hero Jackman MD [address] [facility] NEUROLOGY SLEEP [facility], [facility] [address] [place] [address] Consulting Physician Sleep Medicine 07/22/23 Ronal Jackson MD [address] [place] [address] Consulting Physician Pulmonary Disease 02/19/24 Kristen Perez MD [address] [place] [address] Anesthesiologist Pain Management 02/19/24 Ryan Sanders MD [address] [address] Consulting Physician Urology 05/04/22 Geovanna Alvarenga DPM [address] [place] [address] Consulting Physician Foot and Ankle Surg 05/04/24 Ariadne Shook NP [address] [place] [address] Nurse Practitioner Neurology 06/01/24 Tabby Light RN [address] [place] [address] [address] [place] [address] Engineering Test Specialist 07/05/24 Junior Tobin MD 2 [facility] [address] [place] [phone] Consulting Physician Urology 07/21/24 documented as of this encounter
--- OUTSIDE RECORDS SUMMARY | 2025-02-14 17:49 | XMS_ITS | Encounter Summary ---
Author Organization [place] [facility] Address [address] [place] [address] Phone Care Team Providers Care Manager Credit Collections Name Role Phone Anila Patino MD Primary Care Provider [phone] Salomon Medrano MD Unavailable [phone] Rosalinda Looney MD Unavailable Shaquille Blanco MD Unavailable Lit Singer MD Unavailable Johan Marti MD Unavailable Tino Still MD Unavailable [phone] Matt Richardson DO Unavailable [phone] Pema Gill MD Unavailable [phone] Jus Patel MD Unavailable Haja Luciano MD Unavailable [phone] Yasmine Yanes MD Unavailable Yasmine Yanes MD Unavailable Samantha Mir RN Unavailable Unavailable Tabby Mcclendon MD Unavailable Haja Page MD PhD Unavailable + Pema Gill MD Unavailable [phone] Chandler Trejo MD Unavailable [phone] Johan Marti MD Unavailable [phone] MichaelAriadne palencia Ricarda RETAIL SALESMAN Unavailable [phone] Pema Gill MD Unavailable [phone] Hero Jackman MD Unavailable Ronal Jackson MD Unavailable Kristen Perez MD Unavailable [phone] Ryan Sanders MD Unavailable Geovanna AlvarengaM Unavailable [phone] [facility] InstituteAriadne palencia Ricarda RETAIL SALESMAN Unavailable [phone] Tabby Light RN Unavailable [phone] Junior Tobin MD Unavailable Encounter Details Date Type Department Care Team (Late st Contact Info) Description 05/10/2020 Orders Only [facility] [address] [place] [address] Scanning, Provider Social History Tobacco [...] on file 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 Gender Identity Female 03/06/2022 7:30 PM CDT Sexual Orientation Straight 03/06/2022 7: 30 PM CDT Occupation Industry Job Start Date Job End Date disabled Not on file Not on file Not on file documented as of this encounter Plan of Treatment Upcoming Encounters Date Type Department Care Team (Late st Contact Info) Description 09/07/2025 Orders Only [facility] [address] [place] [address] Scanning, Provider documented as of this encounter Procedures Procedure Name Priority Date/Time Associated Diagnosis Comments SCAN - RADIOLOGY/IMAGING 05/10/2020 documented in this encounter Results * SCAN - RADIOLOGY/IMAGING (05/10/2020) Anatomical Region Laterality Modality Other us Provider Scanning Final Result documented in this encounter Visit Diagnoses Not on filedocumented in this encounter Additional Health Concerns Infection Onset Date Last Indicated Resolved Time COVID: Suspected 08/04/2020 08/04/2020 08/04/2020 2:35 PM STEEL SAMPLER COVID: Suspected 10/05/2020 10/05/2020 10/05/2020 1:07 PM CDT COVID: Suspected 12/16/2020 12/16/2020 12/16/2020 3:40 PM CDT COVID: Suspected 03/15/2021 03/15/2021 03/15/2021 8:52 AM CDT COVID: Suspected 08/15/2021 08/15/2021 08/16/2021 3:05 AM STEEL SAMPLER COVID: Suspected 05/20/2022 05/20/2022 05/20/2022 2:35 PM STEEL SAMPLER COVID19 05/20/2022 05/20/2022 05/30/2022 3:05 AM STEEL SAMPLER COVID: Recovered Comment:Added based on recent COVID infection. 05/30/2022 05/30/2022 08/28/2022 3:05 AM C DT COVID: Suspected 01/13/2023 01/14/2023 01/14/2023 3:05 AM CDT COVID: Suspected 05/02/2023 05/02/2023 05/02/2023 5:51 PM STEEL SAMPLER COVID: Suspected 10/10/2023 10/10/2023 10/10/2023 4:01 PM CDT COVID: Suspected 12/06/2024 12/06/2024 12/06/2024 12:57 PM CDT documented as of this encounter Care Teams Manager Credit Collections Relationship Specialty Start Date End Date Anila Patino MD PCP - General 09/13/16 Salomon Medrano MD [address] [facility] [address] [place] [address] Rheumatology 01/02/17 Rosalinda Looney MD [address] [facility] [address] [place] [address] Psychiatry 01/02/17 [place] [address] [address] Surgeon Orthopedic Surgery 01/02/17 01/27/22 [place] [address] [address] Radiation Oncology 01/02/17 [place] [address] [address] [address] Neurosurgery 01/02/17 Tino Still MD [address] [place] [address] [address] [place] [address] Surgeon Orthopedic Surgery 09/19/17 Matt Richardson DO [address] [place] [address] [address] [place] [address] Consulting Physician Gastroenterology 12/10/19 Pema Gill MD [address] [place] [address] Fellow Pulmonary Disease 01/21/20 02/18/24 Jus Patel MD [address] [place] [address] Consulting Physician Urology 01/21/20 02/05/23 Haja Luciano MD [address] [place] [address] Consulting Physician Cardiovascular Disease 12/21/20 Yasmine Yanes MD [address] [place] [address] Consulting Physician Cardiology 07/23/21 Yasmine Yanes MD [address] [place] [address] Consulting Physician Cardiology 07/23/21 01/27/22 Samantha Mir, RN Registered Nurse Pulmonary Disease 01/10/22 02/18/24 Tabby Mcclendon MD [address] [place] [address] Electrician Station Assistant Obstetrics and Gynecology 01/28/22 07/30/22 Haja Page MD PhD [address] [place] [address] Consulting Physician Neurology 05/04/22 05/03/24 Pema Gill MD [address] [place] [address] Fellow Pulmonary Disease 06/21/22 07/30/22 Chandler Trejo MD [address] [place] [address] [address] [place] [address] Consulting Physician Gastroenterology 07/31/22 02/18/24 Johan Marti MD [address] [place] [address] [address] [place] [address] Referring Physician Neurosurgery 02/06/23 05/03/24 Ariadne Shook, ROSITA [address] [place] [address] Nurse Practitioner Neurology 07/22/23 05/03/24 Pema Gill MD [address] [place] [address] Fellow Pulmonary Disease 07/22/23 07/22/23 Hero Jackman MD [address] [facility] NEUROLOGY SLEEP MED, [facility] [address] [place] [address] Consulting Physician Sleep Medicine 07/22/23 Ronal Jackson MD [address] [place] [address] Consulting Physician Pulmonary Disease 02/19/24 Kristen Perez MD [address] [place] [address] Anesthesiologist Pain Management 02/19/24 Ryan Sanders MD 2 [facility] [address] [place] [address] Consulting Physician Urology 05/04/22 Geovanna Alvarenga DPM [address] [place] [address] Consulting Physician Foot and Ankle Surg 05/04/24 Ariadne Shook, ROSITA [address] [place] [address] Nurse Practitioner Neurology 06/01/24 Tabby Light, RN [address] [place] [address] [address] [place] [address] Senior Sas Programmer 07/05/24 Junior Tobin MD [address] [place] [phone] Consulting Physician Urology 07/21/24 documented as of this encounter
--- OUTSIDE RECORDS SUMMARY | 2025-02-14 17:49 | XMS_ITS | Encounter Summary ---
Author Organization [place] [facility] Address [address] [place] [address] Phone Care Team Providers Care Activity Assistant Name Role Phone Anila Patino MD Primary Care Provider [phone] Salomon Medrano MD Unavailable [phone] Rosalinda Looney MD Unavailable Shaquille Blanco MD Unavailable Lit Singer MD Unavailable Johan Marti MD Unavailable Tino Still MD Unavailable Matt Richardson DO Unavailable [phone] Pema [place] MD Unavailable [phone] Jus Patel MD Unavailable Haja Luciano MD Unavailable Yasmine Yanes MD Unavailable Yasmine Yanes MD Unavailable Samantha Mir RN Unavailable Unavailable Tabby Mcclendon MD Unavailable Haja Page MD PhD Unavailable + Pema [place] MD Unavailable [phone] Chandler Trejo MD Unavailable [phone] Johan Marti MD Unavailable [phone] MichaelAriadne palencia Ricarda PRIVATE INVESTIGATOR Unavailable [phone] Pema [place] MD Unavailable [phone] Hero Jackman MD Unavailable Ronal Jackson MD Unavailable Kristen Perez MD Unavailable [phone] Ryan Sanders MD Unavailable Geovanna AlvarengaM Unavailable [phone] [facility] Center[facility]riad[facility] Ricarda PRIVATE INVESTIGATOR Unavailable [phone] Tabby Light RN Unavailable [phone] Junior Tobin MD Unavailable Encounter Details Date Type Department Care Team (Late st Contact Info) Description 05/06/2020 Orders Only [facility] [address] [place] [address] Scanning, Provider Social History Tobacco [...] on file 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 Gender Identity Female 03/06/2022 7:30 PM CDT Sexual Orientation Straight 03/06/2022 7: 30 PM CDT Occupation Industry Job Start Date Job End Date disabled Not on file Not on file Not on file documented as of this encounter Plan of Treatment Upcoming Encounters Date Type Department Care Team (Late st Contact Info) Description 09/07/2025 Orders Only [facility] [address] [place] [address] Scanning, Provider documented as of this encounter Procedures Procedure Name Priority Date/Time Associated Diagnosis Comments SCAN - RADIOLOGY/IMAGING 05/05/2020 documented in this encounter Results * SCAN - RADIOLOGY/IMAGING (05/05/2020) Anatomical Region Laterality Modality Other us Provider Scanning Edited Result - Final documented in this encounter Visit Diagnoses Not on filedocumented in this encounter Additional Health Concerns Infection Onset Date Last Indicated Resolved Time COVID: Suspected 08/04/2020 08/04/2020 08/04/2020 2:35 PM WORKING SUPERVISOR COVID: Suspected 10/05/2020 10/05/2020 10/05/2020 1:07 PM CDT COVID: Suspected 12/16/2020 12/16/2020 12/16/2020 3:40 PM CDT COVID: Suspected 03/15/2021 03/15/2021 03/15/2021 8:52 AM CDT COVID: Suspected 08/15/2021 08/15/2021 08/16/2021 3:05 AM WORKING SUPERVISOR COVID: Suspected 05/20/2022 05/20/2022 05/20/2022 2:35 PM WORKING SUPERVISOR COVID19 05/20/2022 05/20/2022 05/30/2022 3:05 AM WORKING SUPERVISOR COVID: Recovered Comment:Added based on recent COVID infection. 05/30/2022 05/30/2022 08/28/2022 3:05 AM C DT COVID: Suspected 01/13/2023 01/14/2023 01/14/2023 3:05 AM CDT COVID: Suspected 05/02/2023 05/02/2023 05/02/2023 5:51 PM WORKING SUPERVISOR COVID: Suspected 10/10/2023 10/10/2023 10/10/2023 4:01 PM CDT COVID: Suspected 12/06/2024 12/06/2024 12/06/2024 12:57 PM CDT documented as of this encounter Care Teams Activity Assistant Relationship Specialty Start Date End Date Anila Patino MD PCP - General 09/13/16 Salomon Medrano MD [address] [facility] [address] [place] [address] Rheumatology 01/02/17 Rosalinda Looney MD [address] [facility] [address] [place] [address] Psychiatry 01/02/17 [place] [address] [address] Surgeon Orthopedic Surgery 01/02/17 01/27/22 [place] [address] [address] Radiation Oncology 01/02/17 [place] [address] [address] [address] Neurosurgery 01/02/17 Tino Still MD [address] [place] [address] [address] [place] [address] Surgeon Orthopedic Surgery 09/19/17 Matt Richardson DO [address] [place] [address] [address] [place] [address] Consulting Physician Gastroenterology 12/10/19 Pema Gill MD [address] [place] [address] Fellow Pulmonary Disease 01/21/20 02/18/24 Jus Patel MD [address] [place] [address] Consulting Physician Urology 01/21/20 02/05/23 Haja Luciano MD [address] [place] [address] Consulting Physician Cardiovascular Disease 12/21/20 Yasmine Yanes MD [address] [place] [address] Consulting Physician Cardiology 07/23/21 Yasmine Yanes MD [address] [place] [address] Consulting Physician Cardiology 07/23/21 01/27/22 Samantha Mir, RN Registered Nurse Pulmonary Disease 01/10/22 02/18/24 Tabby Mcclendon MD [address] [place] [address] Systems Software Engineer Obstetrics and Gynecology 01/28/22 07/30/22 Haja Page MD PhD [address] [place] [address] Consulting Physician Neurology 05/04/22 05/03/24 Pema [place] MD [address] [place] [address] Fellow Pulmonary Disease 06/21/22 07/30/22 Chandler Trejo MD [address] [place] [address] [facility] [address] [place] [address] Consulting Physician Gastroenterology 07/31/22 02/18/24 Johan Marti MD [address] [place] [address] [address] [place] [address] Referring Physician Neurosurgery 02/06/23 05/03/24 Ariadne Shook, ROSITA [address] [place] [address] Nurse Practitioner Neurology 07/22/23 05/03/24 Pema [place] MD [address] [place] [address] Fellow Pulmonary Disease 07/22/23 07/22/23 Hero Jackman MD [address] [facility] [address] [place] [address] Consulting Physician Sleep Medicine 07/22/23 Ronal Jackson MD [address] [place] [address] Consulting Physician Pulmonary Disease 02/19/24 Kristen Perez MD [address] [place] [address] Anesthesiologist Pain Management 02/19/24 Ryan Sanders MD [address] [place] [address] [address] [place] [address] Consulting Physician Urology 05/04/22 Geovanna Alvarenga DPM [address] [place] [address] Consulting Physician Foot and Ankle Surg 05/04/24 Ariadne Shook, ROSITA [address] [place] [address] Nurse Practitioner Neurology 06/01/24 Tabby Light, RN [address] [place] [address] [address] [place] [address] Chief Nursing Executive 07/05/24 Junior Tobin MD [address] [place] [phone] Consulting Physician Urology 07/21/24 documented as of this encounter
--- OUTSIDE RECORDS SUMMARY | 2025-02-14 17:49 | XMS_ITS | Clinical Summary ---
Author Organization [facility] Address [address] [place] [address] Care Team Providers Care Conference Translator Name Role Phone Anila Patino MD Primary Care Provider [phone] Salomon Medrano MD Unavailable [phone] Rosalinda Looney MD Unavailable Lit Singer MD Unavailable Johan Marti MD Unavailable Tino Still MD Unavailable [phone] Matt Richardson DO Unavailable [phone] Yasmine Yanes MD Unavailable Hero Jackman MD Unavailable Ronal Jackson MD Unavailable Kristen Perez MD Unavailable Ryan Sanders MD Unavailable Geovanna Alvarenga DPM Unavailable Ariadne Shook NP Unavailable Tabby Light RN Unavailable Junior Tobin MD Unavailable Allergies Active Allergy Reactions Criticality Noted Date Comments Codeine Nausea Only Medium 05/20/2016 Only on high dose can tolerate low dose and a cough syrup Penicillins Rash,Swelling High 05/20/2016 Reaction: Rash, , Reaction: Rash, , Note: Imported from external source. Scopolamine Delusions Medium 01/14/2017 Sulfa (Sulfonamide Antibiotics) Swelling,Rash Medium Medications escitalopram (LEXAPRO) 20 mg tabletIndications: Anxiety with Depression Take 1 tablet (20 mg total) by mouth every morning Active busPIRone (BUSPAR) 10 mg tabletIndications: Generalized Anxiety Disorder Take 1 tablet (10 mg total) by mouth 2 tablets in the morning and 1 tablet at night Active aspirin 81 mg enteric coated tabletIndications: Cerebral Thromboembolism Prevention,History of several strokes and has pacemaker Take 1 tablet (81 mg total) by mouth every morning Active acetaminophen (TYLENOL) 325 mg tabletIndications: Pain Take 1 tablet (325 mg total) by mouth 2 (two) times a day Active calcium carbonate (OS-CATALINA) 1,500 mg (600 mg of elemental calcium) tabletIndications: Post-Menopausal Osteoporosis Prevention Take 600 mg by mouth every morning Active traMADoL (ULTRAM) 50 mg tabletIndications: Pain Take 1-2 tablets (50-100 mg total) by mouth 3 (three) times a day as needed for pain Takes 2 in the morning, and 2 at night, with Tylenol 022 Active HumsamCF, Pen 40 mg/0.4 mL pen injector kitIndications:Rhe umatoid Arthritis Inject 0.4 mL (40 mg total) under the skin every 14 (fourteen) days 022 Active vilazodone (VIIBRYD) 10 mg tabletIndications: major depressive disorder Take 1 tablet (10 mg total) by mouth every morning Active clonazePAM (KlonoPIN) 0.5 mg tabletIndications: Anxiety Take 1 tablet (0.5 mg total) by mouth 2 (two) times a day Active traZODone (DESYREL) 150 mg tabletIndications: Mood disorder TAKE 2 TABLETS BY MOUTH AT BEDTIME DIRECTED NEEDED FOR SLEEP 023 Active pramipexole (MIRAPEX) 1.5 mg tablet TAKE 3 TABLETS BY MOUTH AT BEDTIME DIRECTED 10/27/2 023 Active mycophenolate mofetil (CELLCEPT) 500 mg tablet Take 1 - 2 tablets (500 mg - 1000 mg) by mouth twice daily. Active amLODIPine (NORVASC) 5 mg tabletIndications: Benign hypertension Take 1 tablet (5 mg total) by mouth nightly 90 tablet 3 024 2024 Active atorvastatin (LIPITOR) 20 mg tabletIndications: Multiple-type hyperlipidemia Take 1 tablet (20 mg total) by mouth daily 90 tablet 3 Active azelastine (ASTELIN) 137 mcg (0.1 %) nasal sprayIndications:C hronic rhinitis Administer 2 sprays into each nostril 2 (two) times a day before breakfast and dinner 90 mL 3 Active fluticasone propionate (FLONASE) 50 mcg/actuation nasal sprayIndications:C hronic rhinitis Administer 2 sprays into each nostril daily 120 mL 3 Active montelukast (SINGULAIR) 10 mg tabletIndications: Chronic rhinitis,Chronic hypoxemic respiratory failure (HCC),Mixed simple and mucopurulent chronic bronchitis (HCC) Take 1 tablet (10 mg total) by mouth nightly 90 tablet 3 024 2024 Active omeprazole (PriLOSEC) 20 mg capsuleIndications :Chronic GERD Take 1 capsule (20 mg total) by mouth 2 (two) times a day before breakfast and dinner Take before food and eat within 30 minutes so that you activate the pill 180 capsule 3 024 2024 Active tiZANidine (ZANAFLEX) 4 mg tabletIndications: Restless leg Take 1 tablet (4 mg total) by mouth nightly as needed for muscle spasms 90 tablet 3 Active potassium chloride ER 20 mEq CR tabletIndications: Hypokalemia TAKE 1 TABLET BY MOUTH DAILY 90 tablet 3 Active furosemide (LASIX) 40 mg tablet Take 1 tablet (40 mg total) by mouth 2 (two) times a day 180 tablet 3 024 2024 Active miconazole nitrate 4 % (200 mg)- 2 % (9 gram) comb pack,prefill appl & cream Insert 1 Application into the vagina nightly Active ondansetron ODT (ZOFRAN-ODT) 4 mg disintegrating tablet Take 1 tablet (4 mg total) by mouth every 8 (eight) hours as needed Active pantoprazole DR (PROTONIX) 40 mg EC tablet TAKE 1 TABLET BY MOUTH EVERY MORNING BEFORE BREAKFAST FOR GERD Active spironolactone (ALDACTONE) 25 mg tablet TAKE 1 TABLET(25 MG) BY MOUTH DAILY 90 tablet 3 025 Active gentamicin (GARAMYCIN) 0.1 % ointment APPLY TO WOUND AND COVER WITH GAUZE. CHANGE ONCE DAILY 025 Active clopidogreL (PLAVIX) 75 mg tablet TAKE 1 TABLET(75 MG) BY MOUTH DAILY 90 tablet 3 025 Active calcium carbonate-vitamin D3 (Calcium 600 + D,3,) 1500 mg (600 mg elemental) -200 units per tablet Calcium + D3 600-200 MG-UNIT Oral Tablet QTY: 0 tablet Days: 0 Refills: 0 Written: 01/11/19 Patient Instructions: 1 tab daily otc 019 Active multivitamin tablet Daily Multivitamin Oral Capsule QTY: 0 capsule Days: 0 Refills: 0 Written: 07/30/19 Patient Instructions: 1 tab daily 020 Active albuterol 2.5 mg /3 mL (0.083 %) nebulizer solutionIndication s:Chronic obstructive pulmonary disease, unspecified COPD type (HCC) USE 1 VIAL VIA NEBULIZER FOUR TIMES DAILY NEEDED FOR WHEEZING OR SHORTNESS OF BREATH 150 mL 11 025 Active budesonide-glycopy r-formoterol (Breztri Aerosphere) 160-9-4.8 mcg/actuation inhalerIndications :Panlobular emphysema (HCC) Inhale 2 puffs 2 (two) times a day 10.7 g 3 025 Active predniSONE (DELTASONE) 10 mg tabletIndications: Panlobular emphysema (HCC) Take 3 tabs (30 mg) po every day for 3 days, then 2 tabs (20 mg) po every day for 3 days, then 1 tab (10 mg) po every day for 3 days 18 tablet 025 Active albuterol HFA (PROVENTIL HFA,VENTOLIN HFA,PROAIR HFA) 90 mcg/actuation inhalerIndications :Supplemental oxygen dependent INHALE 2 PUFFS BY MOUTH EVERY 3-6 HOURS NEEDED FOR WHEEZING OR SHORTNESS OF BREATH 54 g 3 025 Active albuterol HFA (PROVENTIL HFA,VENTOLIN HFA,PROAIR HFA) 90 mcg/actuation inhalerIndications :Supplemental oxygen dependent Inhale 2 puffs every 4 (four) hours as needed for wheezing or shortness of breath (Every 3-6 hours) 3 each 3 025 2024 Discontinued Active Problems Patient Care Coordination No te Formatting of this note migh t be different from the original. Dr. 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 Medrano dating back to 2019 Started Reclast infusion for chronic steroid use--DEXA bone density 01/09/2023 spine test -0.9, hip test -1.1, trochanter test -2.0 06/29/2020 01/03/2022 02/29/2020 03/01/2024 DEXA bone density 09/09/2024 = Class 2 obesity with alveola r hypoventilation, serious comorbidity, and body mass index (BMI) of 35.0 to 35.9 in adult 05/04/2024 Spondylosis of lumbar region without myelopathy or radiculopathy 01/30/2024 Assessment & Plan (02/29/2024 11:46 AM CDT): Chronic, Co managed by pain management. No acute findings on exam today, continue same Chest wall deformity 07/22/2023 Kyphoscoliosis 07/22/2023 Requires continuous at home supplemental oxygen 07/22/2023 Diaphragm dysfunction 07/22/2023 Chronic GERD 03/20/2023 Overview (03/20/2023): Not responding to Prilosec 20 mg b.i.d.. Advise to see GI for EGD rule out Bailey's esophagus. She declined this referral. Multiple phone calls placed to HER to encouraged testing and finally declined the evaluation 03/20/2023 Myopathy 07/17/2022 Overview (07/17/2022): Added automatically from request for surgery [id number] Senile osteoporosis 12/24/2021 Overview (03/02/2024): Received orders from Dr. Anneliese Patino's office to call and schedule patient for Zoledronic Acid, (Reclast) infusion. Her last Reclast infusion was 06/29/2020. Scheduled the appointment time with patient's . Appointment scheduled for 01/03/2022 at 11:00. No prior auth required per [facility] per ref# [id number]. Pt had Reclast 02/28/23 & 03/01/24 Assessment & Plan (02/29/2024 11:47 AM CDT): Due for Reclast infusion, we will order today Pacemaker 08/31/2020 Overview (12/21/2020): Dr. Luciano Placed pacemaker August 2020, 2 months prior to heart block findings on heart monitor she had admission stroke which led to a vascular dementia long term systemic steroid user 05/29/2020 Overview (12/21/2020): Images from the original note were not included. Reclast infusion 06/29/2019 DEXA bone density (-) July 2017 Iron deficiency anemia 06/16/2017 Overview (04/10/2021): Hemoglobin 10, iron and transferrin saturation low TIBC elevated. Started iron sucrose infusion and oral iron with her referral to GI for source of blood loss 04/09/2021. GI consultation options include Dr. Pappas, Dr. Dukes or her choice at [facility]. Her previous Dr. Varela is not available Chronic respiratory failure with hypoxia and hyp ercapnia 05/28/2017 Overview (06/16/2017): Requires nasal oxygen due to interstitial fibrosis from underlying rheumatoid arthritis. Assessment & Plan (08/11/2019 2:55 PM 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): Patient has chronic respiratory failure and is O2 dependent. She recently started on nebulizer treatment with improvement in symptoms. She is now also on steroids per rheumatology which have improved respiratory status. We will monitor. Assessment & Plan (05/28/2017 4:36 PM 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): Due to rheumatic lung disease. Patient uses 2L home oxygen Patient is on chronic prednisone therapy 5 mg a day was doubled to 10 mg daily as per her PCP on 05/24/2017 Patient is also on Etanercept weekly Patient follows with at [facility] for her rheumatoid arthritis Lumbar disc disorder with myelopathy 04/29/2017 Overview (09/19/2017): Right-sided footdrop not completely resolved after surgery Dr. Blanco April and then again May 2017. Wears a right AFO splint. Advised against driving permanently. Chronic obstructive pulmonary disease 01/14/2017 Overview (01/28/2020): Associated with chronic hypoxemia when initially diagnosed in 2016 Carried a diagnosis of rheumatoid arthritis associated interstitial lung disease 2016 through January 2020 when she met her new top lift and automatic window repairer at [facility] Admitted 48 hours at [facility] for pulmonary workup for shortness of breath with these results Hospital Course: Under the care of ESTER Gifford at [facility] Pt was directly admitted for further workup of worsening SOB with concerns for progression of ILD. Pulmonology was consulted and recommended high resolution non-contrast chest CT which did not reveal any evidence of ILD, but rather small airways disease. Her TTE was poor quality but did not show over PH with any RV dilation or dysfunction. Autoimmune workup was unremarkable. Ultimately, workup revealed NO evidence of ILD. Pulmonology suspected she may have small airways disease/asthma and that her prior history of spinal surgeries causing restriction made her PFTs difficult to interpret. She was started on ICS/LABA therapy with Breo Ellipta. Additionally she had a cough that was worse when supine, which was suspected to be from GERD so patient was discharged on PPI given that she is on chronic steroids. With regards to THAPA, she was discharged with plans for outpatient stress echocardiogram. Assessment & Plan (01/22/2021 4:50 PM CDT): Pt reports that she notices that her pulse oximeter has been reading lower since yesterday. She reports that in orthodoxy yesterday it got down to 88% , so she got up and went down to the basement where it is cooler, and she reports that did help. She reports a mild small dry cough. Afebrile today. She is satting at 96% today on her 4 liters. Lung sounds are slightly diminished. She reports that she is using all her inhalers as prescribed. Breo daily and albuterol PRN for SOB. This could be due to a COPD exacerbation or a developing URI or even pneumonia. Pt has hx being hospitalized with pneumonia. She is requesting prednisone today. I have given her a medrol indio today but she will need to watch her sugars and call us with any high readings. She is to f/u with me on Friday of this week if she is not better, and we will get a chest x-ray. Assessment & Plan (03/01/2020 10:46 AM CDT): Pt reports today that she has had a cough with slight chest tightness for a few days now. Afebrile but O2 sat is 91% on 4 L Per NC. Lung sounds have mod expiratory rhonchi in bilat lower lung herrmann. We will get a chest x-ray today and call her with results. Assessment & Plan (01/11/2020 1:18 PM CDT): Diagnosed with RA- associated ILD ~5 years ago but chest imaging was negative for findings consistent with this diagnosis. Plan discharge today with outpatient stress echo, ICS/LABA and PPI (pt is on chronic steroids so should be on PPI anyway) Assessment & Plan (01/11/2020 10:54 AM CDT): In Rheumatoid arthritis with ILD and hypoxia on LTOT. Pleasant 69-year-old female with a 15 year history of rheumatoid arthritis for which she is currently on steroids and Humira. She was admitted from Pulmonary Clinic on 01/06. Patient comfortable on 4 L O2 at rest, wears CPAP for RICHY. PFT show mild restrictive is is 6 deficit with reduced TLC 63%. On her 6 minutes walk test the patient walked 150 feet before needing to stop for shortness of breath. She did not desaturate on her 2 L of oxygen during this time. Pre-walk FEV1 was 1.40. ABG on room air showed pH of 7.45, pCO2 of 43, pO2 of 61, calculated A-a gradient of 35. Inpatient work-up: 01/08 CT PE protocol which is negative for PE. Lung herrmann show some air trapping but no consolidation, no javid effusions, no ground-glass opacities, no javid fibrosis/honeycombing. Her autoimmune panel is has negative PATITO, negative JANNETTE, CCP<0.5, RF,10, myomarker pending. 01/09: Sniff test shows delayed left diaphragm excursion but no javid paralysis. 01/09: A repeat HRCT non con of chest did not show any parenchymal lung disease, insteasd has mild air trapping, small lung volumes with atelectasis. 01/09: TTE with bubble was negative for PFO, EF 54-75%, negative for valvular disease or hypokinesis. Normal ventricles. Patient continue to complain of cough and hypoxia. We have advised ppi, inhaled steroids and LABA for her cough. For her ongoing hypoxia, would recommend MANAGER INTERNATIONAL stress echo to evaluate for ischemia. We have told patient this can be done outpatient, she would prefer to have in-house. Recommendations: 1. Dobutamine stress TTE to evaluate for ischemic changes. 2. Start PPI or H2 joyce to treat for possible GERD which may be causing cough and contributing to her dyspnea . 3. Start patient on Symbicort or Breo Ellipta [ which every is on formulary and covered by her insurance] to cover for broncho-spasm and signs of small airway disease on CT. She should continue on her p.r.n. Flonase. 4. Will follow-up on autoimmune workup. 5. Continue on steroids and humira for RA. Thank you for consult. Pulmonary will continue to follow. Assessment & Plan (01/10/2020 8:11 PM CDT): Diagnosed with RA- associated ILD ~5 years ago which has severely progressed over the past year. Previously she would only need intermittent O2 during exertion but now she is up to 4L NC all the time and cannot walk more than ~100ft without becoming severely SOB. Was previously seeing Dr. Yanez at [facility] but wanted to transition care to [facility]. Had 1st appt with Dr. Gill on 01/06 when they decided to admit her for further workup of ILD - further pulm recs include high res noncontrast chest CT. Will obtain OSH CT scan Assessment & Plan (01/09/2020 6:06 PM CDT): Diagnosed with RA- associated ILD ~5 years ago which has severely progressed over the past year. Previously she would only need intermittent O2 during exertion but now she is up to 4L NC all the time and cannot walk more than ~100ft without becoming severely SOB. Was previously seeing Dr. Yanez at [facility] Had 1st appt with Dr. Gill on 01/06 when they decided to admit her today for further workup of ILD -orders for HRCT, TTE, LE dopplers, sniff test -PATITO, JANNETTE, RF, CCP, myositis panel -home inhalers and neb treatments orders -left message with Pulmonary, notifying them she was here Rheumatoid arthritis involving multiple sites Overview (09/20/2016): Rheumatoid arthritis Assessment & Plan (01/11/2020 1:18 PM CDT): Currently managed by Dr. Medrano (for the past 15 yrs). Has tried multiple regimens but currently on humira (Q2wks) and prednisone 10mg daily -continue prednisone, celebrex and pRN tramadol Assessment & Plan (01/10/2020 8:12 PM CDT): Currently managed by Dr. Medrano (for the past 15 yrs). Has tried multiple regimens but currently on humira (Q2wks) and prednisone 10mg daily -continue prednisone, celebrex and pRN tramadol Assessment & Plan (01/09/2020 6:10 PM CDT): Currently managed by Dr. Medrano (for the past 15 yrs). Has tried multiple regimens but currently on humira (Q2wks) and prednisone 10mg daily -continue prednisone, celebrex and pRN tramadol Assessment & Plan (07/21/2019 12:37 PM 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): Possible rheumatoid nodule on her right forearm where the cellulitis was located. The cellulitis infection is resolved as erythema is gone, but the firm nodule remains there about 2 x 3 cm. We will get an ultrasound today but we may need to contact her labour market economist Dr. Medrano to see her for this. Assessment & Plan (05/28/2017 4:37 PM 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): Patient is on chronic prednisone therapy 5 mg a day was doubled to 10 mg daily as per her PCP on 05/24/2017 Patient is also on Etanercept weekly Patient follows with at [facility] for her rheumatoid arthritis Spinal stenosis of cervical region 05/09/2014 Overview (09/19/2017): Cervical spine stenosis operated in 1977 by the right anterior neck--implant a donor disc Personal history of urethral stricture 4 Overview (09/19/2016): Urethral stricture Multiple-type hyperlipidemia 10/30/2013 Overview (09/20/2016): Hyperlipidemia Restless leg 10/30/2013 Overview (09/20/2016): Restless leg syndrome Glomus tumor 05/10/2013 Overview (09/20/2016): 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 Stress (-) September 2016 Assessment & Plan (02/29/2024 11:46 AM CDT): Chronic, at goal. BP stable in office today on current therapy. No acute findings on exam. Recent CMP CBC were normal. Continue amlodipine, Lasix, spironolactone, potassium as prescribed. low salt diet. Keep follow with Cardiology in May. Restrictive lung disease Assessment & Plan (02/29/2024 11:44 AM CDT): Chronic, stable. Co managed by pulmonology. Wears home O2 at 5 L and sleeps with BiPAP at night. See recent ER visit for shortness of breaths as outlined above. Chest x-ray was clear. Was started on a course of doxycycline for white blood cell count of 11.5 with normal differential. A CT chest from April 2023 showed stable restriction and mild diaphragmatic elevation. Lungs diminished but clear on exam today satting 97% on 5 L. continue Breo and albuterol as prescribed. Keep follow-up with pulmonology on 04/21/2024. Resolved Problems Problem Noted Date Diagnosed Date Resolved Date Seborrheic keratoses 11/19/2024 025 Hospital discharge follow-up 07/21/2024 08/03/2024 Assessment & Plan (08/01/2024 12:47 PM 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): See hospital details above, testing and labs reviewed with patient and daughter in office today. Med reconciliation completed. Pneumonia seems resolved at this time, patient is complaining of normal COPD symptoms. She has a follow-up with pulmonology in 2 weeks. Educated daughter that normally we advised a chest x-ray 6 weeks out from treatment of pneumonia to ensure resolution-she will discuss this with pulmonology. Patient had low potassium in hospital and is on 2 different diuretics, we will repeat BMP today to ensure resolution. Patient has already seen urology for follow-up on urinary retention and her Mcdonald was removed. Advised daughter to monitor closely for any signs of urinary retention-she has equipment at home to restart Mcdonald if needed. Keep follows with home health care for PT OT as scheduled. Abdominal pain 06/30/2024 08/03/2024 Intractable nausea and vomiting 06/30/2024 08/03/2024 Chronic respiratory failure with hypoxia and hypercapnia 06/30/2024 08/03/2024 Colon cancer screening 02/29/202408/03 Acute bacterial rhinosinusitis 01/13/2023 08/03/2024 Assessment & Plan (01/14/2023 10:32 AM CDT): URI symptoms x 4-5 days, consisting of thick, purulent nasal drainage and coughing up purulent material, with history of sinus infections. Covid, Flu A/B negative in office today. Rhonchi on auscultation with decreased breath sounds. Chest xray today given patient's history of lung disease. Will rx doxycycline today to cover for URI and for any possible lower respiratory infection. Rx benzonatate for cough. Recommended use of mucinex for thick post-nasal drainage and chest secretions. Continue all other medications as directed. Patient has follow-up with Dr. MARTIN on 02/06/23. Hypomagnesemia 05/31/2022 02/29/2024 Assessment & Plan (05/31/2022 1:28 PM 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): See assessment and plan for hypokalemia Pneumonia, community acquired 06/20/2021 08/03/2024 Hypokalemia 06/20/2021 08/03/2024 Non-healing open wound of toe 04/06/2021 07/23/2021 Malodorous urine 04/06/2021 07/23/2021 Fatigue 04/06/2021 07/23/2021 Hypokalemia 04/06/2021 08/03/2024 Assessment & Plan (05/31/2022 1:51 PM 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): Acute problem, seen in ER 1 week ago, not admitted Patient was given IV supplementation and discharged with supplementation - see ER visit note for full details Asked if patient is taking indapamide - patient and report that she is NOT taking this medication, unsure when it was discontinued Asked if patient still taking furosemide - patient and states that she IS still taking this ProBNPs over the last 2 years have been completely normal Transthoracic Echo with bubble study 2 years ago showed: SUMMARY: Technically difficult study despite use of echo contrast. Normal LV and RV size and systolic function. Normal LV wall thickness. Normal biatrial size. No significant valvular abnormalities. Unable to estimate PASP due to inadequate TR jet. Normal Inferior vena cava. Normal aortic root size. Unable to measure global longitudinal strain with accuracy. Uninterpretable bubble study due to poor image quality. Unsure why patient is taking furosemide at this time, patient and also unaware Recommended continuing supplements as ordered and discontinuing diuretics to prevent recurrence, repeat BMP and magnesium in about 2 weeks - patient agreeable Orders for AMS STAFF to arrange BMP, magnesium level on 06/13/2022 per patient request - dx = hypokalemia, hypomagnesemia Please call senior controls analyst office and inform them that we are going to discontinue furosemide at this time due to recent ER visit for low potassium and magnesium - if they have other recommendations, please let us know - thanks Orders for Estefany Loja to arrange Ensure you are not taking indapamide - this can result in increased loss of electrolytes through the urine Continue all other medications as prescribed Continue monitoring blood pressure daily - report readings consistently >140/90 or <90/60 Continue monitoring symptoms - report recurrent or worsening symptoms to the office or go to ER Follow up for BMP and magnesium recheck as agreed upon - office to follow up once results have been received Follow up with Dr. Patino and senior controls analyst as scheduled or sooner if necessary Acute non-recurrent maxillary sinusitis 03/15/2021 07/23/2021 UTI symptoms 01/22/2021 07/23/2021 Assessment & Plan (01/22/2021 4:44 PM CDT): Pt is here with urinary frequency and burning with urination, as well as bilateral flank pain for a few days now. She has been afebrile. We will get a UA/CS today and await results. Since patient presents with urinary symptoms today as well as respiratory symptoms, she is requesting that the antibiotic for the presumed UTI be able to cover URI as well. I would normally choose macrobid for presumed UTI, but today will start doxycycline instead so it is more suitable for both kinds of infection. Advised to drink plenty of water. Vascular dementia 12/21/2020 07/23/2021 Overview (12/21/2020): Stroke induced memory impairment June 2020, discontinued driving. Requires assisted living level of care-- is providing the the moment. Closed fracture of left hip 06/13/2020 12/21/2020 Overview (07/10/2020): 7 weeks ago s/p ORIF at [facility] presenting with new onset left hip pain and x-rays concerning for hardware fracture. July 10, 2020 Thrush 06/13/2020 02/29/2024 COVID-19 05/29/2020 08/03/2024 Assessment & Plan (05/21/2022 9:16 AM 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): Acute problem, present times a couple days Physical examination as documented - no signs/symptoms of serious illness noted COVID 19 and influenza A/B in office - COVID 19 POSITIVE Recommended Paxlovid with appropriate medication regimen adjustments and ciprofloxacin for pneumonia prophylaxis in the setting of abnormal breath sounds, significant pulmonary history and history of recurrent pneumonia requiring hospitalization, as well as supportive measures with symptom monitoring - patient and agreeable to plan Patient and state patient has taken ciprofloxacin with all current medications in the past without adverse effect - both verbalize understanding of the drug-drug interactions that could occur with ciprofloxacin and some of patient's current medications Orders for AMS STAFF to arrange None at this time Orders for Estefany Loja to arrange Start Paxlovid as ordered - complete course, take with food to prevent stomach upset, HOLD Flonase for 8 days Start ciprofloxacin as ordered - complete course, take with food and probiotic to prevent stomach upset and diarrhea Continue albuterol inhaler as needed Continue supportive measures - Mucinex to thin respiratory secretions, anti-histamines to help with congestion, OTC acetaminophen for fever, etc Stay hydrated, eat well, rest as needed Continue monitoring symptoms - report persistent or worsening symptoms to the office or go to ER Follow up as scheduled with Dr. Patino or sooner if necessary Dyspnea on exertion 05/29/2020 02/29/20 24 Skin yeast infection 03/01/2020 021 Assessment & Plan (03/01/2020 10:41 AM CDT): Intertrigo rash under breasts and in groin area. Pt states she started using lotrimin cream a few days ago--and it hasn't been working. I did explain to her that yeast can take awhile to go away and she needs to be sure to use it 2x daily for 6 weeks, even if it looks to be better--keep using it. I will have her f/u in 6 weeks unless the rash is gone. Lotrimin topical cream to rash areas BID. History of TIA (transient ischemic attack) 01/09/2020 12/21/2020 Assessment & Plan (01/11/2020 1:18 PM CDT): Patient has hx of TIAs in 2014, 2015, 2017 -continue home atorvastatin, hydrochlorothiazide Assessment & Plan (01/10/2020 8:12 PM CDT): Patient has hx of TIAs in 2014, 2015, 2017 -continue home atorvastatin, hydrochlorothiazide Assessment & Plan (01/09/2020 6:12 PM CDT): Patient has hx of TIAs in 2014, 2015, 2017 -continue home atorvastatin, hydrochlorothiazide Chronic back pain 01/09/2020 01/21/2020 Assessment & Plan (01/11/2020 1:18 PM CDT): Patient has hx of multiple back surgeries and RA which has led to her chronic back pain -cont home gabapentin, flexeril and PRN tramadol Assessment & Plan (01/10/2020 8:12 PM CDT): Patient has hx of multiple back surgeries and RA which has led to her chronic back pain -cont home gabapentin, flexeril and PRN tramadol Assessment & Plan (01/09/2020 6:11 PM CDT): Patient has hx of multiple back surgeries and RA which has led to her chronic back pain -cont home gabapentin, flexeril and PRN tramadol Non-recurrent acute suppurat alonzo otitis media of left ear without spontaneous rupture of tympanic membrane 08/31/2019 08/31/2019 Assessment & Plan (08/31/2019 2:25 PM CDT): Noted on exam. We will treat with cefdinir for PNA which should cover for otitis media. She will call with any further symptoms. Pneumonia of right middle lo be due to infectious organism 08/31/2019 08/31/2019 Assessment & Plan (08/31/2019 1:55 PM CDT): Patient with cough, congestion, low grade fevers. CXR completed and reviewed with Dr. Patino and appears a PNA is present. She will continue nebulizer treatments QID. We will attempt to send sputum culture. We will also do CBC and BMP to r/o any dehydration and signs of infection. She will be sent antibiotic which she will complete as prescribed. She is to call with any worsening or persistent symptoms. She will need repeat CXR in 4 weeks Immunocompromised state due to drug therapy 08/31/2019 12/21/2020 Acute bacterial rhinosinusitis 08/11/2019 08/31/2019 Assessment & Plan (08/11/2019 2:54 PM 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): Patient presents with congestion, sinus pressure and cough with purulent discharge consistent with acute sinusitis. She was prescribed antibiotic which she was instructed to complete. She was also encouraged to do nasal saline rinses BID, to use mucinex BID and to continue nebulizer treatments every 4-6 hours. She is to call with continued or persistent symptoms. Swelling of lower extremity 07/12/2019 08/31/2019 Assessment & Plan (07/12/2019 4:30 PM 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): Bilateral ankle swelling--pt states that she has been drinking a lot of water since being on the antibiotics. Lasix 20mg take 1 tab PO once daily for the next few days, #4/NR. If after the 3rd day the swelling is improved, no need to take the last one. She agrees to this. Cellulitis of right arm 07/09/201911/15 Assessment & Plan (07/12/2019 1:38 PM 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): The arm looks improved today but is still erythematous. Consulted with Dr. Mcclure--per his advice--finish clindamycin. Then start doxycycline 100mg BID x 5 days. Follow up with me next Friday if the redness and swelling is not completely resolved. Assessment & Plan (07/09/2019 9:27 AM 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): Erythema and warmth contained to an area of about 8cm x 9cm of R ventral forearm. We will treat with clindamycin 300mg QID x 7 days since she has an allergy to PCN/Keflex and Rocephin. I will see her back on Friday for a recheck of this area. Cough 06/16/2017 12/21/2020 Assessment & Plan (08/09/2020 2:57 PM 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): Phone visit today with patient and she reports overall improvement with her coughing and wheezing. She reports that she has remained afebrile. She is continuing to take her antibiotic and using her nebs. She is weaning down on her prednisone and tomorrow will start at the 10mg dose. She reports that she does not need anything else at this time. She will call if symptoms worsen. Otherwise, plan for f/u with Dr. MARTIN in December. Assessment & Plan (08/04/2020 3:20 PM 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): Covid test= Negative Pt just had pneumonia back at the end of Jun when hospitalized for her hip replacement surgery. I will treat her with doxycycline 100mg BID x 10 days, and prednisone 20mg x 5 days, then decrease to 10mg x 5 days, then stop. She can keep doing her nebulizers as prescribed. She refuses to go do a chest x-ray today stating that she doesn't feel good. She agrees to a phone visit next Friday. Chronic rhinitis 06/16/2017 08/03/2024 Assessment & Plan (05/31/2022 1:29 PM 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): Chronic problem, well controlled on current therapy Patient requesting refill of azelastine nasal spray - medication refill sent to pharmacy Elevated LFTs 06/16/2017 09/19/2017 Overview (06/16/2017): Liver sonogram was normal during hospitalization May 2017. AST elevated 47, ALT elevated 49, alk-phos elevated 154. Reason for the elevation not explained. CT abdomen May 2017 IMPRESSION: 1. Evidence of mild enteritis. 2. Cholecystectomy change with dilatation of the biliary tree. 3. Stable right hepatic lobe hemangioma and right hepatic lobe cyst. 4. Spinal fusion changes. 5. Hysterectomy change. Preliminary results were faxed by Dr. Thapa of [facility] at 2322 on 05/30/2017. Electronically signed by: Darshan Ace M.D. Enteritis 05/31/2017 06/16/2017 Chronic pain disorder 05/31/20172020 Left lower quadrant abdominal pain 05/28/2017 01/21/2020 Assessment & Plan (12/29/2019 11:45 AM CDT): Consulted with Dr. MARTIN--Possible diverticulitis with abscess, will need CT of the abdomen with IV and oral contrast to rule this out. She finished a round of antibiotics for suspected diverticulitis a few weeks ago and now symptoms are back. We will go ahead and put her on another round of cipro and flagyl and she can start that today. CBC, CMP, UA, KUB today. We will await those results. Assessment & Plan (05/28/2017 4:34 PM 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): Started on Friday05/24/2017, patient had fever day before. Patient was given PO keflex and Flagyl but it did not help. Patient was sent in to ER by her PCP for further work up. Patient had CT A/P in ER which showed SIGNIFICANT BILIARY DUCTAL DILATATION STATUS POST CHOLECYSTECTOMY., FLUID LEVELS WITHIN NONDILATED COLON. THIS IS CONSISTENT WITH DIARRHEA, SMALL HEMANGIOMA IN THE RIGHT HEPATIC LOBE. GI () on board. Recommends to hole of on antibiotic, pain seems neuropathic. Start Gabapentin [address] Abdomen did not show any organic cause. Plan for colonoscopy tomorrow. Transaminitis 05/28/2017 06/16/2017 Assessment & Plan (05/28/2017 4:39 PM 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): Seems chronic T.Bili normal ALP 144, AST 57, ALT 48 May be due to rheumatoid arthritis medication Check hepatitis panel, check RUQ sonogram Swelling 05/12/2017 06/16/2017 Deafness, mixed type 04/29/2014 020 Subjective tinnitus 04/29/2014 08/31/19 20 Pain of upper extremity 04/29/201408/14 Cervicalgia 04/29/2014 01/21/2020 Herpes zoster 10/30/2013 06/16/2017 Overview (09/19/2016): Shingles Osteoarthritis of knee 10/30/201312/21 Overview (09/19/2016): DJD (degenerative joint disease) of knee Recurrent UTI 10/30/2013 08/03/2024 Overview (09/20/2016): Urinary tract infection Prolapse of vaginal wall 10/30/201301/2021 Overview (09/20/2016): Vaginal prolapse Menopausal syndrome 10/30/2013 01/15/20 17 Overview (09/20/2016): Menopausal syndrome Abnormal liver function tests 09/28/2013 08/03/2024 Overview (08/03/2024): 09/28/2013 persistent correction developed while on MTX Will discuss seeing a GI gift consultant Recently no sign of trend regarding introduction of Azathioprine or upward titration of dosage. Diarrhea 08/17/2013 09/19/2017 Overview (09/20/2016): Diarrhea Essential (primary) hypertension 07/28/2012 08/03/2024 Moderate episode of recurren t major depressive disorder 07/28/2012 12/06/2024 Rheumatoid arthritis, unspecified 07/09/2012 08/03/2024 Rheumatoid arthritis, unspecified 07/09/2012 12/06/2024 Insomnia, persistent 02/22/2011 018 Overview (09/18/2016): Insomnia, persistent Mood disorder 02/22/2011 05/04/2024 Overview (12/21/2020): Condition managed by Dr Looney Assessment & Plan (01/11/2020 1:18 PM CDT): Patient has history of anxiety and depression; currently reporting good moods. No SI/HI -continue home buspar, lexapro, trazodone and PRN clonazepam -provide emotional support Assessment & Plan (01/10/2020 8:12 PM CDT): Patient has history of anxiety and depression; currently reporting good moods. No SI/HI -continue home buspar, lexapro, trazodone and PRN clonazepam -provide emotional support Assessment & Plan (01/09/2020 6:03 PM CDT): Patient has history of anxiety and depression; currently reporting good moods. No SI/HI -continue home buspar, lexapro, trazodone and PRN clonazepam -provide emotional support Encounters Date Type Department Care Team Description 02/09/2025 11:00 AM CDT Office Visit [facility] Medicine Pulmonary [address] [facility] [address] [place] [address] Ronal Jackson MD Chronic respiratory failure with hypoxia and hypercapnia (HCC) (Primary Dx); Tracheobronchomalacia; Restrictive lung disease; Kyphoscoliosis; Current chronic use of systemic steroids 02/09/2025 9:31 AM CDT - 02/09/2025 11:59 PM CDT Hospital Encounter [facility] Medicine PFT Lab [address] [facility] [address] [place] [phone] Chronic obstructive pulmonary disease, unspecified COPD type (HCC) Discharge Disposition: Discharge to home or self care 02/01/2025 Telephone [facility] at [facility] [address] [facility] [address], [address] [place] [phone] Kristen Perez MD TWO WEEK POST CALL 01/31/2025 Orders Only [facility] [address] [place] [address] Scanning, Provider 01/18/2025 9:18 AM CDT - 01/18/2025 11:59 PM CDT Hospital Encounter [facility] at [address], [address] [place] [address] Kristen Perez MD Spondylosis of lumbar region without myelopathy or radiculopathy Discharge Disposition: Discharge to home or self care 01/17/2025 Telephone [facility] at [address], [address] [place] [address] Kristen Perez MD Sedation precall for 01/18/25 01/11/2025 10:00 AM CDT Office Visit [facility] [address] [place] [phone] Miriam Deleon NP Panlobular emphysema (HCC) (Primary Dx); Chronic respiratory failure with hypoxia and hypercapnia (HCC); Restrictive lung disease; Essential (primary) hypertension 01/11/2025 Orders Only [facility] Medicine Pulmonary [address] [facility] 8th [place] [address] [place] [address] Roselyn Lewis, materials management supervisor obstructive pulmonary disease, unspecified COPD type (HCC) (Primary Dx) 01/07/2025 Telephone [facility] Medicine Pulmonary [address] [facility] Medicine 8th [place] [address] [place] [address] Roselyn Lewis, RN 01/06/2025 Telephone [facility] [address] [place] [phone] Anila Patino MD Breathing Problem 01/05/2025 Telephone [facility] at [address], [address] [place] [address] Kristen Perez MD Comfirming RFA date and time 12/28/2024 Telephone [facility] Medicine Pulmonary [address] [facility] Medicine 8th [place] [address] [place] [address] Roselyn Lewis, RN 12/27/2024 Telephone [facility] Medicine Pulmonary [address] [place] [address] [place] [address] Roselyn Lewis, RN 12/13/2024 Orders Only [facility] [place] [facility] [address] [place] [address] Scanning, Provider 12/06/2024 10:55 AM CDT - 12/06/2024 11:59 PM CDT Hospital Encounter [address] [address] Acute cough Discharge Disposition: Discharge to home or self care 12/06/2024 9:30 AM CDT Office Visit [facility] Pulmonary [address] [place] [address] [place] [address] Isha Harman NP Acute cough (Primary Dx); Class 2 obesity with alveolar hypoventilation, serious comorbidity, and body mass index (BMI) of 35.0 to 35.9 in adult (HCC); Respiratory infection; Tracheobronchomalacia; Supplemental oxygen dependent; Immunization counseling 12/06/2024 8:08 AM CDT - 12/06/2024 11:59 PM CDT Hospital Encounter [facility] Medicine Pulmonary [address] [facility] [address] [place] [address] Restrictive lung disease Discharge Disposition: Discharge to home or self care 12/03/2024 Orders Only [facility] Pul[facility] [address] [place] [address] [place] [address] Roselyn Lewis, RN Restrictive lung disease (Primary Dx) 12/03/2024 Orders Only [facility] [address] [place] [address] [place] [address] Roselyn Lewis, RN Restrictive lung disease (Primary Dx) 12/02/2024 Telephone [facility] Medicine Pulmonary [address] [place] [address] [place] [address] Roselyn Lewis RN 11/29/2024 12:56 PM CDT - 11/29/2024 11:59 PM CDT Hospital Encounter [facility] [address] [facility] [address], [address] [place] [address] Kristen Perez MD Spondylosis of lumbar region without myelopathy or radiculopathy (Primary Dx); Lumbar post-laminectomy syndrome; Chronic bilateral low back pain without sciatica Discharge Disposition: Discharge to home or self care 11/26/2024 12:30 PM CDT Ancillary Procedure [place] [facility] [address] [facility][[address]] [address] [place] [phone] SSS (sick sinus syndrome) (HCC); Cardiac pacemaker in situ 11/25/2024 Telephone [facility] Pulmonary [address] [facility] 8th [place] [address] [place] [address] Roselyn Lewis RN 11/23/2024 Orders Only [facility] [place] [facility] [address] [place] [address] Scanning, Provider 11/19/2024 10:30 AM CDT Office Visit [facility] [address] [place] [address] Miriam Deleon NP Seborrheic keratoses (Primary Dx) 11/19/2024 ACO Quality [facility] Accountable Care Organization [address] [place] [address] Corrine Webb MA 11/19/2024 Telephone [facility] at [place] [address] [facility] [address], [address] [place] [phone] Kristen Perez MD Anticoagulation 11/17/2024 Telephone [facility] [address] [place] [address] Anila Patino MD 11/16/2024 9:30 AM CDT - 11/16/2024 11:59 PM CDT Hospital Encounter [facility] [address] [place] [address] Breast cancer screening by mammogram Discharge Disposition: Discharge to home or self care 11/16/2024 9:29 AM CDT - 11/16/2024 11:59 PM CDT Hospital Encounter [facility] [address] [place] [address] Menopause Discharge Disposition: Discharge to home or self care 11/16/2024 Results Follow-Up [facility] [address] [facility] [address] [place] [address] Anila Patino MD Dexa Axial Skeleton Bone Density 1 or 2 Site from Last 3 Months Immunizations Immunization Administration Dates Next Due COVID-19 MRNA (MODERNA) .5 M L (50 MCG) VACCINE (12 YEARS AND UP) 03/15/2024 COVID-19 mRNA (PFIZER) 0.3 m L (30 mcg) vaccine (12 years and up) 03/14/2023 Influenza, Quadrivalent, Hig h Dose, Preservative Free, Intrr 03/14/2023,06/13/2020 Influenza, Quadrivalent, Spl it, Intramuscular 03/20/2016 Influenza, Quadrivalent, Spl it, Preservative Free, Intramuscular 04/22/2017 Influenza, Trivalent, Adjuva nted, Intramuscular 03/15/2024 Influenza, Trivalent, High D ose, Split, Preservative Free, Intramuscular 05/07/2019,03/27/2018 Influenza, Trivalent, IM (MDV) 03/20/2016,2014 Influenza, Trivalent, Preser vative Free, Intramuscular 02/15/2016,03/18/2014,03/29/2013 Influenza, Unspecified 03/16/2022,2016,03/20/2016,03/16,03/23/2010 Moderna SARS-CoV-2 Monovalen t Vaccination (12+ YRS) 01/18/2022,05/05/2021 PPD TEST 11/27/2009 Pfizer SARS-CoV-2 Monovalent Vaccination (12+ Yrs) PURPLE 09/09/2020,08/15/2020 Pneumococcal Conjugate PCV 13 07/20/2020, 015 Pneumococcal Conjugate Pcv20 03/14/2023 Pneumococcal Polysaccharide PPV23 03/20/2016,11/2009,12/09/2008 RSV, Bivalent, Protein Subun it Rsvpref, Diluent (Abrysvo) 03/14/2023 Tdap 01/18/2022,08/20/2011 ZOSTER Recombinant 10/10/2018,04/07/2018 Surgical History Surgery Date Site/Laterality Comments APPENDECTOMY 06/16/1974 - 06/15/1975 Appendectomy BLADDER SUSPENSION 06/16/1984 - 06/15/1985 bladder tie up CHOLECYSTECTOMY 06/16/1974 - 06/15/1975 gallbladder removed NECK SURGERY 06/16/1984 - 06/15/1985 Details lacking. HERNIA REPAIR Hernia repair many years ago SECTION 06/16/1977 - 06/15/1978 section HYSTERECTOMY 06/16/1987 - 06/15/1988 Hysterectomy SECTION 06/16/1974 - 06/15/1975 section REPLACEMENT TOTAL KNEE BILATERAL 3 - 06/15/2003 Bilateral BACK SURGERY x2 (one a fusion and one with hardware and was unsuccessful) COLONOSCOPY 07/17/2009 - 08/13/2009 Diverticular disease, Dr. Trejo RECTOCELE REPAIR Retrocele/cystocele repair, details lacking. BILATERAL SALPINGOOPHORECTOMY Bladder tie-up & BSO, details lacking. ORIF HIP FRACTURE 06/16/2017 - 06/15/2018 Left fell and had fx pinning and melinda HIP ARTHROPLASTY 04/16/2020 - 05/15/2020 Left CARDIAC PACEMAKER PLACEMENT 08/31/2020 COLONOSCOPY 12/14/2020 - 01/13/2021 Did not have colonoscopy (-) Cologuard. Do not remove this from her surgical history ESOPHAGOGASTRODUODENOSCOPY 05/01/2020 positive for esophagitis patient to repeat in 3 months FLUORO GUIDED ASPIRATION OR INJECTION INTERMEDIATE JOINT RIGHT 03/20/2023 Right HM DNA STOOL 04/08/2024 (-) Due 04/08/2027 Medical History Medical History Date Comments Rheumatoid arthritis (HCC) Rheum atoid arthritis Osteoarthritis Osteoarthritis Depression Depression Hyperlipidemia Stress incontinence Recurrent UTI Colitis Paraganglioma (HCC) Anemia 5, not currently para 2 miss 3 Bleeding diathesis BLEEDING TEND ENCIES, details lacking. Osteoarthritis of knee 10/30/2013 DJD (dege nerative joint disease) of knee Closed fracture of left hip ([facility]) 06/13/2020 7 weeks ago s/p ORIF at [facility] presenting with new onset left hip pain and x-rays concerning for hardware fracture. July 10, 2020 Senile osteoporosis 12/24/2021 Senile osteoporosis 12/24/2021 History of being hospitalized 03/2022 Sh ortness of breath/ Muscles in diaphram doesn't work very well CVA (cerebral vascular accid ent) ([facility]) 06/2021 Last stroke about a year ago (states she's had 4 strokes) /has affected memory/ weakness in bilateral legs and arms Sleep apnea Uses CPAP every night PONV (postoperative nausea a nd vomiting) improved with scope patch, a pplied DOS Delayed emergence from gener al anesthesia back surgery Asthma Hypertension COPD (chronic obstructive pu lmonary disease) Neck pain Low back pain Extremity pain Chronic pain disorder Recurrent UTI 10/30/2013 Urinary tract in fection Chronic rhinitis 06/16/2017 Covid-19 05/29/2020 Hypokalemia 04/06/2021 Acute bacterial rhinosinusitis 01/13/2023 Colon cancer screening 02/29/2024 Hospital discharge follow-up 07/21/2024 Pneumonia, community acquired 06/20/2021 Hypokalemia 06/20/2021 Abnormal liver function tests 09/28/2013 persistent rodent exterminator developed while on MTX Will discuss seeing a GI gift consultant Recently no sign of trend regarding introduction of Azathioprine or upward titration of dosage. Rheumatoid arthritis, unspecified 07/09/2012 Essential (primary) hypertension 07/28/2012 Intractable nausea and vomiting 06/30/2024 Abdominal pain 06/30/2024 Chronic respiratory failure with hypoxia and hypercapnia ([facility]) 06/30/2024 Moderate episode of recurren t major depressive disorder ([facility]) 07/28/2012 Rheumatoid arthritis, unspecified 07/09/2012 Family History Medical History Relation Name Comments Coronary artery disease Father Heart attack Father Hyperlipidemia Mother Other Other Anesthesia problems Neg Hx Relation Name Status Comments Father (Age 35) of [place] age 30s (diversified crops ii farmworker) Mother Other Social History Tobacco Use Types Packs/Day Years Used Date Smoking Tobacco: Never Passive Smoke Exposure: Past Smokeless Tobacco: Never Tobacco Cessation:Counseling Given: Not Answered Alcohol Use Standard Drinks/Week Comments No 0 (1 standard drink = 0.6 oz pure alcohol) occassional mixed drink for special occassions [facility] Utilities Answer Date Recorded In the past 12 months has th e electric, gas, oil, or water company threatened to shut off services in your home? No 07/05/2024 Social Connection and Isolation Panel Answer Date Recorded In a typical week, how many times do you talk on the phone with family, friends, or neighbors? More than three times a week 07/05/2024 How often do you get togethe r with friends or relatives? More than three times a week 07/05/2024 How often do you attend chur ch or synagogue services? More than 4 times per year 07/05/2024 Do you belong to any clubs o r organizations such as orthodoxy groups, unions, fraternal or athletic groups, or school groups? No 07/05/2024 How often do you attend meet ings of the clubs or organizations you belong to? Never 07/05/2024 Are you , , di vorced, , never , or living with a partner? 07/05/2024 Overall Financial Resource Strain (CARDIA) Answe r Date Recorded How hard is it for you to pa y for the very basics like food, housing, medical care, and heating? Not very hard 07/05/2024 PHQ-2 Answer Date Recorded PHQ-2 Total Score (If total score is 3 or more points, staff should administer the PHQ-9) 0 05/04/2024 Hunger Vital Sign Answer Date Recorded Within the past 12 months, y ou worried that your food would run out before you got the money to buy more. Never true 07/05/19 25 Within the past 12 months, t he food you bought just didn't last and you didn't have money to get more. Never true 07/05/2024 PRAPARE - Transportation Answer Date Re corded In the past 12 months, has l ack of transportation kept you from medical appointments or from getting medications? No 06/17 In the past 12 months, has l ack of transportation kept you from meetings, work, or from getting things needed for daily living? No 07/05/2024 Housing Stability Vital Sign Answer Morris e Recorded In the last 12 months, was t here a time when you were not able to pay the mortgage or rent on time? No 07/05/2024 Number of Times Moved in the Last Year Not on fi le 07/05/2024 At any time in the past 12 m [facility], were you homeless or living in a nursing home (including now)? No 07/05/2024 AUDIT-C Answer Date Recorded Frequency of Alcohol Consumption Not on file 02/09/2025 Q2: How many drinks containi ng alcohol do you have on a typical day when you are drinking? 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 Gender Identity Female 03/06/2022 7:30 PM CDT Sexual Orientation Straight 03/06/2022 7: 30 PM CDT Occupation Industry Job Start Date Job End Date disabled Not on file Not on file Not on file Obstetrics History Para Term AB IAB SAB Ectopic Multiple Livin g Live Births 5 2 2 3 3 2 2 Date Outcome GA Total Labor Labor/2nd/3rd Weight Sex Type Anes PTL Raquel A1 A5 Name Clin Term Term SAB SAB SAB Last Filed Vital Signs Vital Sign Reading Time Taken Comments Blood Pressure 125/85 02/09/2025 10:31 AM CDT Pulse 85 02/09/2025 10:31 AM CDT Temperature 36.6 C (97.8 F) 02/09/2025 10:31 AM CDT Respiratory Rate 20 02/09/2025 10:31 AM CDT Oxygen Saturation 94% 02/09/2025 10:31 AM CDT Inhaled Oxygen Concentration - - Weight 73.9 kg (163 lb) 02/09/2025 10:31 AM CDT Height 152.4 cm (5') 02/09/2025 10:31 AM CDT Body Mass Index 31.83 02/09/2025 10:31 AM CDT Plan of Treatment Upcoming Encounters Date Type Department Care Team (Late st Contact Info) Description 09/07/2025 Orders Only [facility] [address] [place] [address] Scanning, Provider Health Maintenance Due Date Last Done Comments Covid-19 Vaccine (7 - Mixed Product risk season) 2024 03/15/2024, 03/14/2023, 03/14/2023, Additional history exists Influenza Vaccine (#1) 2025 , 03/14/2023, 03/16/2022, Additional history exists Depression Screening 05/04/2025 05/04/2024, 02/19/2024, 07/31/2022, Additional history exists Well Visit 65+ 05/04/2025 05/04/2024, 07/17, 08/30/2021, Additional history exists Breast Cancer Screening-Mammogram 11/16/2025 11/16/2024, 10/24/2023, 09/09/2022, Additional history exists Fall Risk Assessment 01/18/2026 01/18/2025, 11/29/2024, 05/31/2024, Additional history exists Osteoporosis Screening-Bone Density Scan 11/16/2026 11/16/2024, 09/09/2022, 07/21/2017 Colon Cancer Screening-Colonoscopy 04/08/2027 05/29/2017 Colon Cancer Screening-DNA Stool 04/19/2027 04/19/2024, 02/27/2024, 01/18/2021, Additional history exists DTaP/Tdap/Td Vaccine (3 - Td or Tdap) 01/19/2032 01/18/2022, 08/20/2011 Colon Cancer Screening-CT Colonography Discontinued 05/29/2017 Colon Cancer Screening-Sigmoidoscopy Discontinued 05/29/2017 Hepatitis B Screening Completed 05/29/2017 Hepatitis C Screening Completed 05/29/2017 , 01/25/2014, 01/05/2014 Zoster Vaccine Completed 10/10/2018, 04/07/2018 Pneumococcal vaccine 65+ Completed 023, 07/20/2020, 03/20/2016, Additional history exists Colon Cancer Screening-FIT Discontinued 02/26, 01/18/2021, 05/29/2017 Goals Goal Patient Goal Type Associated Problems Recent Progress Patient-Stated? Author ZAC General Goal - Patient schedules and keeps appointments with all recommended providers ACO Care Management On track(2024 2:54 PM CDT) Tabby Owens RN Note: Problem: Potential for medical complications and readmission if follow-up appointments are not scheduled Interventions: - Ensure all follow-up appointments are scheduled, all prescribed medications have been received. - Address any barriers for keeping scheduled appointment. - Coordinate with patient/caregiver(s) to ensure patient is able to keep scheduled appointment. - Emphasize importance of keeping scheduled appointments. - Identify and discuss questions for next provider visit. - Follow up with patient after scheduled appointment(s) to review any new orders or changes made to medication regimen. ZAC General Goal - Patient is knowledgeable about condition when worsening and how to respond ACO Care Management On track(2024 2:54 PM CDT) Tabby Owens RN Note: Problem: Knowledge deficit related to signs and symptoms of worsening condition Interventions: - Assess patient's level of understanding related to their condition(s), specific medications and self-management of their chronic conditions. - Send educational materials to patient related to their chronic condition, including signs and symptoms, self-management actions, and serious symptoms that require urgent medical intervention. - Assist patient/provider in developing an action plan for symptom management. - Review with patient weekly: s/s worsening condition, self-management actions to take, when to call CM or provider. [facility] Chronic Pain Care Plan Chronic Care Management Alanna Linn RN Note: Problem: Chronic Pain Goals: 1. Minimize further functional decline 2. Maximize quality of life 3. Control pain Strategies: - Activity/exercise program recommendation - Conservative stepwise pain medicine strategy with multi-disciplinary approach - Recommend healthy lifestyle strategies and compensatory methods as needed Reduce the likelihood of falling Lifestyle On track(2024 3:50 PM CDT) Alanna Linn RN Note: Below are four things you can do to prevent falls: Begin an exercise program to improve your leg strength & balance Ask your doctor or pharmacist to review your medicines Get annual eye check-ups & update your eyeglasses Make your home safer by: Removing clutter & tripping hazards Putting railings on all stairs & adding grab bars in the bathroom Having good lighting, especially on stairs Contact your local community or senior center for information on exercise, fall prevention programs, or options for improving home safety. Medical Devices Implanted Type Area Sales Service Supervisor Device Identifier Shelf Expiration Date Model / Serial / Lot Spr Therapeutics System Sprint Percutaneous Electrical Nerve Stimulation [id number] - [id number] Implanted:Qty: 1 on 05/15/2023 by Kristen Perez MD at [facility] Building 4 Lead SPR [employer]ER[employer] 09/29/2023 [id number] / / Fatm[employer] [id number] Rl Gamma 3.2mm 450mm Wire Fixation Sterile - [id number] - [id number] Implanted:Qty: 1 on 07/06/2020 by Natalee De La Rosa MD at [facility] Left: Femur [employer] 03/15/2025 [id number] / [id number] / [id number] Loja & Nephew/Richco/Orth o [id number] Intertan 36cm 11.5mm Left Intertrochanter 130d 1.5mm Nail - [id number] - [id number] Implanted:Qty: 1 on 07/06/2020 by Natalee De La Rosa MD at [facility] Left: Femur Loja [employer] Nephew/Richco/O rtho [id number] 08/23/2029 [id number] / [id number] / [id number] Loja [employer] Nephew/Richco/Orth o [id number] Intertan 4.5mm 95mm 90mm Lag Compression Integrated Interlocking - [id number] - [id number] Implanted:Qty: 1 on 07/06/2020 by Natalee De La Rosa MD at [facility] Left: Femur [employer]ja [employer] Nephew/Richco/O rtho [id number] 12/21/2029 [id number] / [id number] / [id number] Loja [employer] Nephew/Richco/Orth o [id number] 5mm 40mm Low Profile Internal Hex Femur Screw Bone Trigen - [id number] Implanted:Qty: 1 on 07/06/2020 by Natalee De La Rosa MD at [facility] Left: Femur [employer]ja [employer] Nephew/Richco/O rtho [id number] / / Loja [employer] Nephew/Richco/Orth o [id number] 5mm 42.5mm Low Profile Internal Hex Femur Screw Bone Trigen - [id number] Implanted:Qty: 1 on 07/06/2020 by Natalee De La Rosa MD at [facility] Left: Femur [employer]ja [employer]hew/Richco/O rtho [id number] / / Pacemaker- Implanted:09/01/19 21 by Haja Luciano MD (Quantity not on file) Chest Explanted Type Area Sales Service Supervisor Device Identifier Shelf Expiration Date Model / Serial / Lot Medtronic Inc Vectris 5mm 60cm 1x8 Electrode Trial Lead Neurostimulator [id number] - [id number] Explanted:Qty: 1 on 03/20/2023 by Kristen Perez MD at [facility] 4 Spinal Cord Stimulator Medtronic Inc [id number] / / Procedures Procedure Name Priority Date/Time Associated Diagnosis Comments PULMONARY FUNCTION TEST (PFT) Routine 02/09/2025 10:30 AM CDT Chronic obstructive pulmonary disease, unspecified COPD type (HCC) SCAN - LABS 01/31/2025 PAIN MGMT IMAGING LUMBAR/SACRAL ABLATION BILATERAL Schedule Routine, Read Routine (OP Routine) 01/18/2025 10:33 AM CDT Spondylosis of lumbar region without myelopathy or radiculopathy SCAN - LABS 12/13/2024 RESPIRATORY PATHOGEN PANEL STAT 12/06/2024 11:13 AM CDT Acute cough PULMONARY FUNCTION TEST (PFT) Routine 12/06/2024 9:05 AM CDT Restrictive lung disease DEVICE CHECK - REMOTE Routine 11/25/2024 3:50 PM CDT SSS (sick sinus syndrome) (HCC) Cardiac pacemaker in situ SCAN - LABS 11/23/2024 SCREENING MAMMOGRAM BILATERAL W DERREK Schedule Routine, Read Routine (OP Routine) 11/16/2024 10:30 AM CDT Breast cancer screening by mammogram DEXA AXIAL SKELETON BONE DENSITY 1 OR MORE SITES Schedule Routine, Read Routine (OP Routine) 11/16/2024 10:08 AM CDT Menopause STOOL DNA COLOGUARD Routine 02/27/2024 3:30 PM CDT Colon cancer screening COLONOSCOPY 05/29/2017 12:18 PM 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 HEPATITIS PANEL, ACUTE Routine 05/29/2017 4:23 AM 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 from Last 3 Months or Most Recently Relevant to Health Maintenance Results * Pulmonary Function Test - (02/09/2025 10:30 AM CDT) FVC PRE 0.69 L [facility] FVC %PRE PRED 30 % [facility] FEV1 PRE 0.55 L [facility] FEV1 %PRE PRED 30 % [facility] FEV1/FVC PRE 80.8 % [facility] Anatomical Region Laterality Modality PFT 02/09/2025 9:40 AM CDT Narrative 02/10/2025 7:16 PM CDT Table formatting from the original result was not included. [facility] Division of Pulmonary & Critical Care Medicine [address] [place] [address]; [place] [address] [facility]; [place] [address]; [phone] Pulmonary Function Laboratory Pulmonary Stress Test Simple/Oxygen Assessment Patient: Estefany Loja Date: 02/09/2025 : 1950 Ht: 60 IN Wt: 163 LBS Time (min) Distance (ft)/ Mccoy O2 L/M SpO2 HR Amrik* BP FEV1 % Pred Rest: RA 93 80 3 149/95 0.55 30 % Walk/Bike: 1 RA 90 103 3 2 RA/2 85/92 103 7 3 2 94 105 8 4 2 91 109 8 5 2 93 108 8 6 min 0 sec 2 93 110 9 Recovery: 1 /4 98 89 5 149/89 0.58 32% 3 4 98 80 5 *Amrik rate of perceived exertion (1-10 dyspnea scale) Chaitanya, CHEST 2003; [id number] Walk Test Summary: Six Minute Walk Distance: 450 ft Six-minute Walk Work [distance (m) x body wt (kg)]: 68528 kg.m (normal >60,000kg.m) Oxygen required to maintain SpO2 greater than 90% during six minutes of walkin L/M Comments: O2A- PATIENT USED PERSONAL WALKER - PATIENT PLACED ON 4L AT END OF WALK PER PATIENT FOR RECOVERY. Interpretation: Breathing room air, SpO2 is adequate at rest and during exercise sufficient to increase pulse, SpO2 falls to hypoxemic levels. On this basis, SpO2 is adequate at rest breathing room air and while walking breathing supplemental O2 at 2 L/min. This level of exercise is associated with no significant change of FEV1. By signing this report, the attending pulmonary physician certifies that he/she has personally reviewed and interpreted the graphic and numerical data associated with this pulmonary function study and has reviewed and /or edited a preliminary draft report and agrees with the written final report. PFT performed at:->[facility][1] Adult PFT Lab- [facility] Procedure:->Oxygen Assessment Titration Procedure:->Spirometry Pulmonary Function Test Interpretation SPIROMETRY: The FEV1 to FVC ratio is normal. The FEV1 and FVC are reduced in a pattern suggestive of a restrictive abnormality. The flow volume loop is normal. 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 However, measurement of lung volumes is suggested to confirm this if clinically indicated. Compared with most recent study, there has been significant interval worsening of the FVC. The attending pulmonary physician certifies a physician presence in the [facility] during the administration of aerosolized bronchodilator. The attending pulmonary physician certifies that he/she has reviewed and interpreted the graphic and numerical data of this pulmonary function study and agrees with the written final report. The lower limit of normal for PaO2 and %HbO2 is age dependent. However, the [facility] Pulmonary Function Laboratory defines hypoxemia as a PaO2 <56 mm Hg or a %HbO2 <89%. Starting on June of 2024 the [facility] Pulmonary Function Laboratory utilizes race neutral GLI Global normative equations. Ronal Jackson MD PFT ORDERABLES F inal Result * SCAN - LABS (01/31/2025) us Provider Scanning Final Result * Imaging Lumbar/Sacral Medial Branch RFA Bilateral ([id number]) (01/18/2025 10:33 AM CDT) Narrative [facility] - 01/18/2025 10:49 AM CDT The images from this study are not interpreted by Radiology. Please refer to the physician's procedure / OR operative note. Kristen Perez MD IMG PAIN MGMT PROCEDURES F inal Result RAD_PACS[facility] * SCAN - LABS (12/13/2024) Provider Scanning Final Result * Respiratory pathogen panel Nasopharyngeal (12/06/2024 11:13 AM CDT) Influenza A RNA Not Detected Not Detected Influenza B RNA Not Detected Not Detected [facility] RSV RNA Not Detected Not Detected [facility] COVID-19 RNA Not Detected Not Detected [facility] Coronavirus 229E RNA Not Detected Not Detected [facility] Coronavirus HKU1 RNA Not Detected Not Detected [facility] Coronavirus NL63 RNA Not Detected Not Detected [facility] Coronavirus OC43 RNA Not Detected Not Detected [facility] Adenovirus DNA Not Detected Not Detected [facility] Metapneumovirus RNA Not Detected Not Detected [facility] Rhinovirus/Enterov irus RNA Not Detected Not Detected [facility] Parainfluenza 1 RNA Not Detected Not Detected [facility] Parainfluenza 2 RNA Not Detected Not Detected [facility] Parainfluenza 3 RNA Not Detected Not Detected [facility] Parainfluenza 4 RNA Not Detected Not Detected [facility] B. pertussis DNA Not Detected Not Detected [facility] B. parapertussis DNA Not Detected Not Detected [facility] C. pneumoniae DNA Not Detected Not Detected [facility] M. pneumoniae DNA Not Detected Not Detected [facility] Nasopharyngeal 12/06/2024 11 :13 AM CDT 12/06/2024 11:54 AM CDT Tom [facility] - 12/06/2024 12:56 PM CDT Is the Patient experiencing symptoms consistent with COVID?->Unknown Surveillance testing for transplant patient?->No Interpretive Data The [employer] FilmArray Respiratory Panel (RP2.1) assay is a multiplexed real-time PCR based nucleic acid test capable of simultaneous qualitative detection and identification of multiple respiratory viral and bacterial nucleic acids, including SARS Coronavirus 2 (the causative agent of COVID-19). The following bacteria, viruses and virus subtypes can be identified using the FilmArray RP2.1 assay: Bordetella pertussis, Bordetella parapertussis, Chlamydia pneumoniae, Mycoplasma pneumoniae, Adenovirus, SARS Coronavirus 2, seasonal coronaviruses (Coronavirus HKU1, Coronavirus NL63, Coronavirus 229E, and Coronavirus OC43), Influenza A, Influenza A subtype H1, Influenza A subtype H3, Influenza A subtype 2009 H1, Influenza B, Metapneumovirus, Parainfluenza 1, Parainfluenza 2, Parainfluenza 3, Parainfluenza 4, RSV, Rhinovirus/Enterovirus. Due to the genetic similarity between human Rhinovirus and Enterovirus, the FilmArray RP2.1 assay cannot reliably differentiate them. Coronavirus OC43 may cross-react with some isolates of Coronavirus HKU1. A dual positive result may be due to cross-reactivity or may indicate a co- infection. The detection and identification of specific viral and bacterial nucleic acids from individuals exhibiting signs and symptoms of a respiratory infection aids in the diagnosis of respiratory infection if used in conjunction with other clinical and epidemiological information. The results of this test should not be used as the sole basis for diagnosis, treatment, or other management decisions. Negative results in the setting of a respiratory illness may be due to infection with pathogens that are not detected by this test. Positive results do not rule out infection/co-infection with other organisms. The agent(s) detected by the FilmArray RP2.1 may not be the definite cause of disease. Additional testing (lab, imaging, etc.) may be necessary when evaluating a patient with possible respiratory tract infection. The FilmArray RP2.1 assay has FDA clearance for testing of MACHINE PULLER AND LASTER swabs. The performance of additional specimen types has been assessed by the performing laboratory. The performance characteristics of this assay have been determined by [facility] Molecular Infectious Disease Laboratory. Current interpretive data was last revised on 22. us Isha Harman NP LAB MICROBIOLOGY - GENERA L ORDERABLES Final Result [facility] Department [place] [address] * Pulmonary Function Test - (12/06/2024 9:05 AM CDT) FVC PRE 0.91 L [facility] FVC %PRE PRED 40 % [facility] FEV1 PRE 0.79 L [facility] FEV1 %PRE PRED 44 % [facility] FEV1/FVC PRE 86.7 % [facility] Anatomical Region Laterality Modality PFT 12/06/2024 8:36 AM CDT Narrative 12/06/2024 11:29 AM CDT Table formatting from the original result was not included. [facility] Division of Pulmonary & Critical Care Medicine [address] [place] [address]; [address]; [place] [address]; [phone] Pulmonary Function Laboratory Pulmonary Stress Test Simple/Oxygen Assessment Patient: Estefany Loja Date: 12/06/2024 : 1950 Ht: 60 IN Wt: 170 LBS Time (min) Distance (ft)/ Mccoy O2 L/M SpO2 HR Amrik* BP FEV1 % Pred Rest: RA 100 89 5 157/101 0.79 44 % Walk/Bike: 1 RA 96 104 5 2 RA 96 109 5 3 RA 95 110 5 4 RA 95 110 6 5 RA/2 86/95 110/110 6 6 min 0 sec Recovery: 1 2 100 92 6 161/105 0.72 40% 3 2 100 86 5 *Amrik rate of perceived exertion (1-10 dyspnea scale) Chaitanya, CHEST 2003; [id number] Walk Test Summary: Six Minute Walk Distance: 300 ft Six-minute Walk Work [distance (m) x body wt (kg)]: 7038 kg.m (normal >60,000kg.m) Oxygen required to maintain SpO2 greater than 90% during six minutes of walkin L/M Comments: O2A- PATIENT STOPPED DUE TO SOB. Interpretation: Breathing room air, SpO2 is normal at rest and during exercise sufficient to increase pulse, SpO2 falls to hypoxemic levels. On this basis, SpO2 is adequate at rest breathing room air and while walking breathing supplemental O2 at 2 L/min. This level of exercise is associated with no significant change of FEV1. By signing this report, the attending pulmonary physician certifies that he/she has personally reviewed and interpreted the graphic and numerical data associated with this pulmonary function study and has reviewed and /or edited a preliminary draft report and agrees with the written final report. PFT performed at:->[facility][1] Adult PFT Lab- [id number] Procedure:->Oxygen Assessment Titration Procedure:->Spirometry Pulmonary Function Test Interpretation SPIROMETRY: There is a decrease in expiratory airflow at high lung volumes. The FEV1 and FVC are reduced in a pattern suggestive of a restrictive abnormality. The inspiratory loop is appropriate for the expiratory flow abnormality. 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 However, measurement of lung volumes is suggested to confirm this if clinically indicated. Compared with most recent study, there has been no significant interval change. The attending pulmonary physician certifies a physician presence in the [facility] during the administration of aerosolized bronchodilator. The attending pulmonary physician certifies that he/she has reviewed and interpreted the graphic and numerical data of this pulmonary function study and agrees with the written final report. The lower limit of normal for PaO2 and %HbO2 is age dependent. However, the [facility] Pulmonary Function Laboratory defines hypoxemia as a PaO2 <56 mm Hg or a %HbO2 <89%. Starting on June of 2024 the [facility] Pulmonary Function Laboratory utilizes race neutral GLI Global normative equations. Ronal Jackson MD PFT ORDERABLES F inal Result * DEVICE CHECK - REMOTE (11/25/2024 3:50 PM CDT) Anatomical Region Laterality Modality Other Narrative 11/30/2024 10:05 AM CDT Images from the original result were not included. 11/26/2024 [email or web address] quarterly remote device check NOTE The following shows snippets from the complete quarterly report. The complete report in its entirety is attached to this Result Text in Equipment Detailer Presenting EGM Last in-office check 08/13/2024 Next in-office check 08/16/2025 DC PPM, implanted 08/31/2020 Battery longevity = 70% AT/AF burden 0% Ap 2% RVp 0% No event episodes or alerts recorded this monitoring quarter. Reviewed By Bernarda Chilel COMBINATION MACHINE TENDER at 3:28 PM Review and Recommendations below (please forward an in-basket message to your MA if check requires attention) us Yasmine Yanes MD [facility] CARDIAC SERVICES PROCED URES Final Result * SCAN - LABS (11/23/2024) us Provider Scanning Final Result * Screening Mammogram Bilateral W Derrek (11/16/2024 10:30 AM CDT) Anatomical Region Laterality Modality Breast Bilateral Mammography Impressions 11/16/2024 11:47 AM CDT Bilateral No evidence of malignancy in either breast. OVERALL BI-RADS FINAL ASSESSMENT: 1 - Negative RECOMMENDATION: Recommend bilateral annual screening mammography. Narrative 11/16/2024 11:47 AM CDT EXAMINATION: Screening Mammogram Bilateral W Derrek: 11/16/2024 COMPARISON: Relevant prior studies available at the time of interpretation were reviewed. TECHNIQUE: Mammography was performed with 2D and digital breast tomosynthesis (DBT) images. CAD was utilized. BREAST PARENCHYMAL COMPOSITION: There are scattered areas of fibroglandular density. FINDINGS: Bilateral There is no suspicious mass, calcification, or architectural distortion in either breast. 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 CLINICAL INFORMATION: Current height: 55.3 inches Maximum height: 64 inches Weight: 168 pounds Risk factors: Postmenopausal, prior hip/vertebral fracture, adult fracture, rheumatoid arthritis, inflammatory bowel disease, asthma or emphysema COMPARISON: 09/09/2022 Dissimilar scan types or analysis methods precludes assessment for calculating a significant change. FINDINGS: Left forearm: 33% radius BMD is 0.629 g/cm2 T-score is -1.1 Lumbar spine, L1-L2: Total BMD is 1.158 g/cm2 T-score is 1.6 Right HIP: Total BMD is 0.881 g/cm2 T-score is -0.5 Femoral neck BMD is 0.723 g/cm2 T-score is -1.1 FRAX: FRAX tool cannot be utilized due to prior hip/vertebral fracture. IMPRESSION: Low Bone Mass. REFERENCE: Bone mineral density: T-Score: Normal (T-score above or = -1.0) Low bone mass (T-score between -1.0 and -2.5) replaces the previously used term osteopenia Osteoporosis (T-score = or below -2.5) Z-Score: Within the expected range for age (Z-score above -2.0) Below the expected range for age (Z-score is -2.0 or below) Please see below follow up recommendations. Medical evaluation for secondary causes of low bone mineral density may be appropriate. FRAX is a World Health Organization validated fracture risk assessment tool that calculates a person's 10 year probability of a major osteoporosis related fracture and hip fracture. According to the National Osteoporosis Foundation guidelines, postmenopausal women and men age 50 or older with low bone mass and a 10 year probability of a major osteoporosis related fracture = or greater than 20% or a 10 year probability of a hip fracture = or greater than 3% should be considered for pharmacological treatment for the prevention of osteoporosis. For further information, including treatment recommendations, please refer to the 2019 ISCD Official Positions (http://www.iscd.org) and the NOF's Clinician's Guide to Prevention and Treatment of Osteoporosis (http://www.nof.org/professionals/clinical-guidelines) THIS IS AN ELECTRONICALLY VERIFIED FINAL REPORT 11/16/2024 9:38 PM - Electronically signed by Johan Harry M.D. 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 CLINICAL INFORMATION: Current height: 55.3 inches Maximum height: 64 inches Weight: 168 pounds Risk factors: Postmenopausal, prior hip/vertebral fracture, adultfracture, rheumatoid arthritis, inflammatory bowel disease, asthma or emphysema COMPARISON: 09/09/2022 Dissimilar scan types or analysis methods precludes assessment for calculating a significant change. FINDINGS: Left forearm: 33% radius BMD is 0.629 g/cm2 T-score is -1.1 Lumbar spine, L1-L2: Total BMD is 1.158 g/cm2 T-score is 1.6 Right HIP: Total BMD is 0.881 g/cm2 T-score is -0.5 Femoral neck BMD is 0.723 g/cm2 T-score is -1.1 FRAX: FRAX tool cannot be utilized due to prior hip/vertebral fracture. IMPRESSION: Low Bone Mass. REFERENCE: Bone mineral density: T-Score: Normal (T-score above or = -1.0) Low bone mass (T-score between -1.0 and -2.5) replaces thepreviously used term osteopenia Osteoporosis (T-score = or below -2.5) Z-Score: Within the expected range for age (Z-score above -2.0) Below the expected range for age (Z-score is -2.0 or below) Please see below follow up recommendations. Medical evaluation forsecondary causes of low bone mineral density may be appropriate. FRAX is a World Health Organization validated fracture risk assessmenttool that calculates a person's 10 year probability of a major osteoporosisrelated fracture and hip fracture. According to the National OsteoporosisFoundation guidelines, postmenopausal women and men age 50 or older with low bonemass and a 10 year probability of a major osteoporosis related fracture = or greater than 20% or a 10 year probability of a hip fracture = or greaterthan 3% should be considered for pharmacological treatment for the preventionof osteoporosis. For further information, including treatment recommendations, please referto the 2019 ISCD Official Positions (http://www.iscd.org) and the NOF's Clinician's Guide to Prevention and Treatment of Osteoporosis (http://www.nof.org/professionals/clinical-guidelines) THIS IS AN ELECTRONICALLY VERIFIED FINAL REPORT 11/16/2024 9:38 PM - Electronically signed by Johan Harry M.D. MF: NILO Report ID: [id number] Reading Location: [place] [address] Anila Patino MD IM DXA PROCEDURES Final R esult * Stool DNA - Cologuard (02/27/2024 3:30 PM CDT) Stool DNA - Cologuard Negative Negative [facility] (CLIA #:[id number]) Comment: NEGATIVE TEST RESULT. A negative Cologuard result indicates a low likelihood that a colorectal cancer (CRC) or advanced adenoma (adenomatous polyps with more advanced pre-malignant features) is present. The chance that a person with a negative Cologuard test has a colorectal cancer is less than 1 in 1500 (negative predictive value >99.9%) or has an advanced adenoma is less than 5.3% (negative predictive value 94.7%). These data are based on a prospective cross-sectional study of 10,000 individuals at average risk for colorectal cancer who were screened with both Cologuard and colonoscopy. (Alfreda Ruano al, N Engl J Med 2014;370(14):3103-3701) The normal value (reference range) for this assay is negative. COLOGUARD RE-SCREENING RECOMMENDATION: Periodic colorectal cancer screening is an important part of preventive healthcare for asymptomatic individuals at average risk for colorectal cancer. Following a negative Cologuard result, the [place] [employer] and U.S. Multi-Society Task Force screening guidelines recommend a Cologuard re-screening interval of 3 years. References: [place] [employer] Guideline for Colorectal Cancer Screening: https://www.cancer.org/cancer/lnmyc-melkxv-bhbuvv/rfpgmknqq-uggtrgvqw-dszjoxi/ac s-rec ommendations.html.; Dillan DK, aLdi CR, Neville TownsendK, Colorectal Cancer Screening: Recommendations for Physicians and Patients from the U.S. Multi-Society Task Force on Colorectal Cancer Screening , Am J Gastroenterology 2017; 112:5391-3257. TEST DESCRIPTION: Composite algorithmic analysis of stool DNA-biomarkers with hemoglobin immunoassay. Quantitative values of individual biomarkers are not reportable and are not associated with individual biomarker result reference ranges. Cologuard is intended for colorectal cancer screening of adults of either sex, 45 years or older, who are at average-risk for colorectal cancer (CRC). Cologuard has been approved for use by the U.S. FDA. The performance of Cologuard was established in a cross sectional study of average-risk adults aged 50-84. Cologuard performance in patients ages 45 to 49 years was estimated by sub-group analysis of near-age groups. Colonoscopies performed for a positive result may find as the most clinically significant lesion: colorectal cancer [4.0%], advanced adenoma (including sessile serrated polyps greater than or equal to 1cm diameter) [20%] or non- advanced adenoma [31%]; or no colorectal neoplasia [45%]. These estimates are derived from a prospective cross-sectional screening study of 10,000 individuals at average risk for colorectal cancer who were screened with both Cologuard and colonoscopy. (Alfreda Ruano al, N Engl J Med 2014;370(14):0148-7586.) Cologuard may produce a false negative or false positive result (no colorectal cancer or precancerous polyp present at colonoscopy follow up). A negative Cologuard test result does not guarantee the absence of CRC or advanced adenoma (pre-cancer). The current Cologuard screening interval is every 3 years. ([place] [employer] Society and U.S. Multi-Society Task Force). Cologuard performance data in a 10,000 patient pivotal study using colonoscopy as the reference method can be accessed at the following location: www.Idylis.Scoop.it/results. Additional description of the Cologuard test process, warnings and precautions can be found at www.colJB Therapeuticsrd.com. Stool 02/27/2024 3:30 PM CDT 04/10/2024 1:20 PM CDT us Miriam Deleon NP LAB BODY FLUIDS AND STOOLS ORDER AZIZA Final Result [facility] [facility] (CLIA #:[id number]) [address] [place] [address] * COLONOSCOPY (05/29/2017 12:18 PM 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) Anatomical Region Laterality Modality Other Narrative Procedure Note Holly Pappas MD - 05/29/2017 12:[address] [facility] Patient Name: Estefany Loja Procedure Date: 05/29/2017 12:18PM Date of : 1950 Admit Type: Outpatient Age: 67 Gender: Female Attending MD: Holly Pappas M.D. Room: [facility] ENDOSCOPY CAPSULE Note Status: Finalized Patient Profile: 67 WF c/o persistent pain in the LLQ. Some change in bowel habis noted. Having chronic back pain andrecent back surgery. Procedure: Colonoscopy Indications: Abdominal pain in the left lower quadrant Referring MD: Anila Patino M.D. Providers: Holly Pappas M.D. Impression: - Diverticulosis in the sigmoid colon. - Otherwsie unremarkable. Recommendation: - Continue present medications. - Discharge patient to home. - Return to my office if pain continued. - Continue Neurontin 200 mg PO bid for 1 month. Medicines: Monitored Anesthesia Care Complications: No immediate complications. Estimated Blood Loss: Estimated blood loss: none. Procedure: Pre-Anesthesia Assessment: - Prior to the procedure, a History and Physical was performed, and patient medications and allergieswere reviewed. The patient's tolerance of previous anesthesia was also reviewed. The risks and benefitsof the procedure and the sedation options and riskswere discussed with the patient. All questions were answered, and informed consent was obtained. Prior Anticoagulants: The patient has taken no previous anticoagulant or antiplatelet agents. ASA Grade Assessment: II - A patient with mild systemicdisease. After reviewing the risks and benefits, the patientwas deemed in satisfactory condition to undergo the procedure. The benefits, risks and alternatives of theprocedure and sedation were discussed and informed consent was obtained. All questions were answered. Please referto the signed informed consent document in the medical record. The scope was passed under direct vision.The Pediatric Colonoscope PCF-H190L [id number] was introduced through the anus and advanced to the the cecum, identified by appendiceal orifice andileocecal valve. The colonoscopy was performed without difficulty. The patient tolerated the procedurewell. The quality of the bowel preparation wasexcellent. Findings: The perianal and digital rectal examinations were normal. Multiple small-mouthed diverticula were found in the sigmoid colon.No polyps noted and no inflammatory changes noted within the colon. The rectum and retroflexion in the rectum were unremarkable. Electronically signed by Holly Pappas M.D. Holly Pappas M.D. 05/29/2017 1:23:28 PM Number of Addenda: 0 Note Initiated On: 05/29/2017 12:18 PM Procedure Code(s): --- Professional --- 41546, Colonoscopy, flexible; diagnostic, including collection of specimen(s) by brushing or washing, when performed (separateprocedure) Diagnosis Code(s): --- Professional --- R10.32, Left lower quadrant pain K57.30, Diverticulosis of large intestine without perforation orabscess without bleeding CPT copyright 2014 [place] [employer]. All rights reserved. The codes documented in this report are preliminary and upon mental health counselor reviewmay be revised to meet current compliance requirements. Recognized by the [place] [employer] Gastrointestinal [employer]oscopy for promoting quality in endoscopy us Holly Pappas MD ENDOSCOPY PROCEDURES Final Result * Hepatitis panel, acute (05/29/2017 4:23 AM 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) Hep A IgM Negative Negative [facility] (ANJU) Comment:Testing performed by : [facility], [address] [place] [address]., [id number] Hep B core IgM Negative Negative [facility] (ANJU) Comment:Testing performed by : [facility], [address] [place] [address], [id number] Hep C Ab Negative Negative [facility] (ANJU) Comment:Testing performed by : [facility], [address] [place] [address], [id number] HepBsAg Negative Negative [facility] (ANJU) Comment:Testing performed by : [facility], [address] [place] [address], [id number] Blood specimen (specimen) 05/29/2017 4:23 AM 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 05/29/2017 11:39 AM 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 Narrative [facility] ([facility]JU) - 05/29/2017 12:24 PM 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 us Marco Scott MD LAB MICROBIOLOGY - GENER AL ORDERABLES Final Result [facility] ANJU) [address] [facility] [place] [address] from Last 3 Months or Most Recently Relevant to Health Maintenance Insurance [facility] MEDICARE ADVANTAGE Member Subscriber Plan / Payer (Ef fective 2022-Present) Name:Estefany Loja Relation to Subscriber:Self Name:Estefany Loja Payer ID:[id number] (NAIC) Type:[facility] MEDIC[facility] Address: [place] [id number] [facility] MEDICARE ADVANTAGE IDPA [facility] MEDICARE ADVANTAGE MDCR HMO REF MEDICARE ADVANTAGE IDPA Advance Directives For more information, please contact: [phone] Documents on File Type Date Recorded Patient Grappler Expl anation ADVANCE DIRECTIVE 10/05/2018 1:10 PM DNR ADVANCE DIRECTIVE 01/27/2006 LIVING ROBYN L * Full Code (Latest Code Status on File) Date Activated Date Inactivated Comments 07/05/2020 11:35 PM 07/12/2020 4:40 PM * Full Code Date Activated Date Inactivated Comments 01/09/2020 5:58 PM 01/11/2020 7:51 PM * Full Code Date Activated Date Inactivated Comments 05/31/2017 4:23 PM 06/02/2017 5:25 PM * Full Code Date Activated Date Inactivated Comments 05/28/2017 12:24 AM 05/29/2017 7:04 PM * Full Code Date Activated Date Inactivated Comments 05/27/2017 5:23 PM 05/28/2017 12:24 AM Care Teams Conference Translator Relationship Specialty Start Date End Date Anila Patino MD PCP - General 09/13/16 Salomon Medrano MD [address] [facility] [address] [place] [address] Rheumatology 01/02/17 Rosalinda Looney MD [address] [facility] [address] [place] [address] Psychiatry 01/02/17 Lit Singer MD [address] [facility] [address] [place] [address] Radiation Oncology 01/02/17 Johan Marti MD [address] [facility] [address] [place] [address] Neurosurgery 01/02/17 Tino Still MD [address] [facility] [address] [facility] [address] [place] [address] Surgeon Orthopedic Surgery 09/19/17 Matt Richardson DO [address] [facility] [address] [facility] [address] [place] [address] Consulting Physician Gastroenterology 12/10/19 Yasmine Yanes MD [address] [place] [address] [address] [facility] [address] [place] [address] Consulting Physician Cardiology 07/23/21 Hero Jackman MD [address] [facility] NEUROLOGY SLEEP [facility] [address] [place] [address] Consulting Physician Sleep Medicine 07/22/23 Ronal Jackson MD [address] [place] [address] Consulting Physician Pulmonary Disease 02/19/24 Kristen Perez MD [address] [place] [address] Anesthesiologist Pain Management 02/19/24 Ryan Sanders MD [address] [facility] [address] [place] [address] Consulting Physician Urology 05/04/22 Geovanna Alvarenga DPM [address] [place] [address] Consulting Physician Foot and Ankle Surg 05/04/24 Ariadne Shook, ROSITA [address] [place] [address] Nurse Practitioner Neurology 06/01/24 Tabby Light, RN [address] [place] [address] [address] [place] [address] Uniform Maker 07/05/24 Junior Tobin MD [address] [place] [id number] Consulting Physician Urology 07/21/24
--- OUTSIDE RECORDS SUMMARY | 2025-02-14 17:49 | XMS_ITS | Encounter Summary ---
Author Organization [place] [facility] Address [address] [place] [address] Phone Care Team Providers Care Substance Abuse Services Director Name Role Phone Anila Patino MD Primary Care Provider [phone] Salomon Medrano MD Unavailable [phone] Rosalinda Looney MD Unavailable [phone] Barrington Yanez MD Unavailable Shaquille Blanco MD Unavailable Onesimo Magaña MD Unavailable [phone] Lit Singer MD Unavailable Johan Marti MD Unavailable Tino Still MD Unavailable [phone] Matthias Christianson MD Unavailable Matt Richardson DO Unavailable [phone] Pema Gill MD Unavailable [phone] Jus Patel MD Unavailable Haja Luciano MD Unavailable Yasmine Yanes MD Unavailable Yasmine Yanes MD Unavailable [phone] Samantha Mir RN Unavailable Unavailable Tabby Mcclendon MD Unavailable Haja Page MD PhD Unavailable + Pema Gill MD Unavailable [phone] Chandler Trejo MD Unavailable [phone] Johan Marti MD Unavailable [phone] Bouchra Ariadne Ricarda SENIOR BUSINESS INTELLIGENCE ANALYST Unavailable [phone] Pema Gill MD Unavailable [phone] Hero Jackman MD Unavailable Ronal Jackson MD Unavailable Kristen Perez MD Unavailable [phone] Ryan Sanders MD Unavailable Geovanna AlvarengaM Unavailable [phone] [facility] SENIOR BUSINESS INTELLIGENCE ANALYST Unavailable [phone] Tabby Light RN Unavailable [phone] Junior Tobin MD Unavailable Reason for Referral * Consultation (Routine) - Closed Specialty Diagnoses / Procedures Referred By Contac t Referred To Contact Urology Diagnoses Urethral syndrome NOS Anila Patino MD Phone: tel: fax: Ricky Lainez MD Phone: tel: fax: Referral ID Status Reason Start Date Expiration Date V isits Requested Visits Authorized [id number] Closed Specialty Services Required 12/26/2016 06/24/2017 1 1 Encounter Details Date Type Department Care Team (Late st Contact Info) Description 12/26/2016 Orders Only [facility] [address] [place] [address] Anila Patino MD [address] [address] Urethral syndrome NOS (Primary Dx) Social History Tobacco Use Types Packs/Day Years Used Date Smoking Tobacco: Never Alcohol Use Standard Drinks/Week Comments No 0 (1 standard drink = 0.6 oz pur e alcohol) Comments Unknown Sex and Gender Information Value Date Recorded Sex Assigned at Not on file Legal Sex Female 4:42 AM PROJECT ENGINEERING DIRECTOR Gender Identity Female 03/06/2022 7:30 PM CDT Sexual Orientation Straight 03/06/2022 7: 30 PM CDT documented as of this encounter Plan of Treatment Upcoming Encounters Date Type Department Care Team (Late st Contact Info) Description 09/07/2025 Orders Only [facility] [address] [facility] [place] [address] Scanning, Provider Scheduled Referrals Name Type Priority Associated Diagnoses Order Schedule Ambulatory referral to Urology Outpatient Referral Routine Urethral syndrome NOS Ordered: 12/26/2016 documented as of this encounter Visit Diagnoses Diagnosis Urethral syndrome NOS- Primary documented in this encounter Additional Health Concerns Infection Onset Date Last Indicated Resolved Time COVID: Suspected 08/04/2020 08/04/2020 08/04/2020 2:35 PM PROJECT ENGINEERING DIRECTOR COVID: Suspected 10/05/2020 10/05/2020 10/05/2020 1:07 PM CDT COVID: Suspected 12/16/2020 12/16/2020 12/16/2020 3:40 PM CDT COVID: Suspected 03/15/2021 03/15/2021 03/15/2021 8:52 AM CDT COVID: Suspected 08/15/2021 08/15/2021 08/16/2021 3:05 AM PROJECT ENGINEERING DIRECTOR COVID: Suspected 05/20/2022 05/20/2022 05/20/2022 2:35 PM PROJECT ENGINEERING DIRECTOR COVID19 05/20/2022 05/20/2022 05/30/2022 3:05 AM PROJECT ENGINEERING DIRECTOR COVID: Recovered Comment:Added based on recent COVID infection. 05/30/2022 05/30/202208/2808/28/2022 3:05 AM C DT COVID: Suspected 01/13/2023 01/14/2023 01/14/2023 3:05 AM CDT COVID: Suspected 05/02/2023 05/02/2023 05/02/2023 5:51 PM PROJECT ENGINEERING DIRECTOR COVID: Suspected 10/10/2023 10/10/2023 10/10/2023 4:01 PM CDT COVID: Suspected 12/06/2024 12/06/2024 12/06/2024 12:57 PM CDT documented as of this encounter Care Teams Substance Abuse Services Director Relationship Specialty Start Date End Date Anila Patino MD PCP - General 09/13/16 Salomon Medrano MD [address] [facility] [address] [place] [address] Rheumatology 01/02/17 Rosalinda Looney MD [address] [facility] [address] [place] [address] Psychiatry 01/02/17 Barrington Yanez MD [address] [facility] [address] [place] [address] Pulmonary Disease 01/02/17 01/20/20 [place] [address] [address] [facility] [address] [place] [address] Surgeon Orthopedic Surgery 01/02/17 01/27/22 [place] [address] [address] [facility] [address] [place] [address] Otolaryngology 01/02/17 01/20/20 [place] [address] [facility] [address] [place] [address] Radiation Oncology 01/02/17 [place] [address] [facility] [address] [place] [address] Neurosurgery 01/02/17 Tino Still MD [address] [place] [address] [address] [facility] [address] [place] [address] Surgeon Orthopedic Surgery 09/19/17 [place] [address] [facility] [address] [place] [address] Referring Physician Urology 09/19/17 01/20/20 [place] [address] [facility] [address] [place] [address] Consulting Physician Gastroenterology 12/10/19 Pema Gill MD [address] [place] [address] Fellow Pulmonary Disease 01/21/20 02/18/24 Jus Patel MD [address] [place] [address] Consulting Physician Urology 01/21/20 02/05/23 Haja Luciano MD [address] [place] [address] Consulting Physician Cardiovascular Disease 12/21/20 Yasmine Yanes MD [address] [place] [address] Consulting Physician Cardiology 07/23/21 Yasmine Yanes MD [address] [place] [address] Consulting Physician Cardiology 07/23/21 01/27/22 Samantha Mir, CARINA Registered Nurse Pulmonary Disease 01/10/22 02/18/24 Tabby Mcclendon MD [address] [place] [address] Senior Software Engineer Analytics Obstetrics and Gynecology 01/28/22 07/30/22 Haja Page MD PhD [address] [place] [address] Consulting Physician Neurology 05/04/22 05/03/24 Pema Gill MD [address] [place] [address] Fellow Pulmonary Disease 06/21/22 07/30/22 Chandler Trejo MD [address] [place] [address] [place] [address] Consulting Physician Gastroenterology 07/31/22 02/18/24 Johan Marti MD [address] [place] [address] [place] [address] Referring Physician Neurosurgery 02/06/23 05/03/24 Ariadne Shook, ROSITA [address] [place] [address] Nurse Practitioner Neurology 07/22/23 05/03/24 Pema Gill MD [address] [place] [address] Fellow Pulmonary Disease 07/22/23 07/22/23 Hero Jackman MD [address] [facility] NEUR[facility] SLEEP MED, [facility] [address] [place] [address] Consulting Physician Sleep Medicine 07/22/23 Ronal Jackson MD [address] [place] [address] Consulting Physician Pulmonary Disease 02/19/24 Kristen Perez MD [address] [place] [address] Anesthesiologist Pain Management 02/19/24 Ryan Sanders MD [address] [place] [address] Consulting Physician Urology 05/04/22 Geovanna Alvarenga DPM [address] [place] [address] Consulting Physician Foot and Ankle Surg 05/04/24 Ariadne Shook NP [address] [place] [address] Nurse Practitioner Neurology 06/01/24 Tabby Light RN [address] [place] [address] [address] [place] [address] Continuous Crusher Operator 07/05/24 Junior Tobin MD [address] [address] Consulting Physician Urology 07/21/24 documented as of this encounter
--- OUTSIDE RECORDS SUMMARY | 2025-02-14 17:49 | XMS_ITS | Encounter Summary ---
Author Organization [facility] Address [address] [place] [address] Phone Care Team Providers Care Rf Test Technician Name Role Phone Anila Patino MD Primary Care Provider [phone] Salomon Medrano MD Unavailable [phone] Rosalinda Looney MD Unavailable Shaquille Blanco MD Unavailable Lit Singer MD Unavailable Johan Marti MD Unavailable Tino Still MD Unavailable Matt Richardson DO Unavailable [phone] Pema Gill MD Unavailable [phone] Jus Patel MD Unavailable Haja Luciano MD Unavailable Yasmine Yanes MD Unavailable [phone] Yasmine Yanes MD Unavailable [phone] Samantha Mir RN Unavailable Unavailable Tabby Mcclendon MD Unavailable Haja Page MD PhD Unavailable + Pema Gill MD Unavailable [phone] Chandler Trejo MD Unavailable [phone] Johan Marti MD Unavailable [phone] Bouchra Ariadne Chowdary SEWER MAINTENANCE SUPERVISOR Unavailable [phone] Pema Gill MD Unavailable [phone] Hero Jackman MD Unavailable Ronal Jackson MD Unavailable Kristen Perez MD Unavailable [phone] Ryan Sanders MD Unavailable Geovanna AlvarengaM Unavailable [phone] [facility] Ricarda SEWER MAINTENANCE SUPERVISOR Unavailable [phone] Tabby Light RN Unavailable [phone] Junior Tobin MD Unavailable Encounter Details Date Type Department Care Team (Latest Contact Info) Description 04/02/2021 Orders Only [facility] Scanning, Provider [...] How often do you attend chur or yarsani services? More than 4 times per year 07/07/2020 Do you belong to any clubs o r organizations such as alevism groups, unions, fraternal or athletic groups, or [...] on file Legal Sex Female 4:42 AM VP PRODUCTION Gender Identity Female 03/06/2022 7:30 PM CDT Sexual Orientation Straight 03/06/2022 7: 30 PM CDT Occupation Industry Job Start Date Job End Date disabled Not on file Not on file Not on file documented as of this encounter Plan of Treatment Upcoming Encounters Date Type Department Care Team (Late st Contact Info) Description 09/07/2025 Orders Only [facility] [address] [place] [address] Scanning, Provider documented as of this encounter Procedures Procedure Name Priority Date/Time Associated Diagnosis Comments SCAN - LABS 04/02/2021 documented in this encounter Results * SCAN - LABS (04/02/2021) us Provider Scanning Final Result documented in this encounter Visit Diagnoses Not on filedocumented in this encounter Additional Health Concerns Infection Onset Date Last Indicated Resolved Time COVID: Suspected 08/15/2021 08/15/2021 08/16/2021 3:05 AM VP PRODUCTION COVID: Suspected 05/20/2022 05/20/2022 05/20/2022 2:35 PM VP PRODUCTION COVID19 05/20/2022 05/20/2022 05/30/2022 3:05 AM VP PRODUCTION COVID: Recovered Comment:Added based on recent COVID infection. 05/30/2022 05/30/2022 08/28/2022 3:05 AM C DT COVID: Suspected 01/13/2023 01/14/2023 01/14/2023 3:05 AM CDT COVID: Suspected 05/02/2023 05/02/2023 05/02/2023 5:51 PM VP PRODUCTION COVID: Suspected 10/10/2023 10/10/2023 10/10/2023 4:01 PM CDT COVID: Suspected 12/06/2024 12/06/2024 12/06/2024 12:57 PM CDT documented as of this encounter Care Teams Rf Test Technician Relationship Specialty Start Date End Date Anila Patino MD PCP - General 09/13/16 Salomon Medrano MD [address] [facility] [address] [place] [address] Rheumatology 01/02/17 Rosalinda Looney MD [address] [facility] [address] [place] [address] Psychiatry 01/02/17 [place] [address] [address] [facility] [address] [place], [place] [id number] Surgeon Orthopedic Surgery 01/02/17 01/27/22 [place] [address] [address] [facility] [address] [place] [address] Radiation Oncology 01/02/17 [place] [address] [facility] [address] [place] [address] Neurosurgery 01/02/17 Tino Still MD [address] [place] [address] [address] [place] [address] Surgeon Orthopedic Surgery 09/19/17 Matt Richardson DO [address] [place] [address] [address] [place] [address] Consulting Physician Gastroenterology 12/10/19 Pema Gill MD [address] [place] [address] Fellow Pulmonary Disease 01/21/20 02/18/24 Jus Patel MD [address] [place] [address] Consulting Physician Urology 01/21/20 02/05/23 Haja Luciano MD [address] [place] [address] Consulting Physician Cardiovascular Disease 12/21/20 Yasmine Yanes MD [address] [place] [address] Consulting Physician Cardiology 07/23/21 Yasmine Yanes MD [address] [place] [address] Consulting Physician Cardiology 07/23/21 01/27/22 Samantha Mir, RN Registered Nurse Pulmonary Disease 01/10/22 02/18/24 Tabby Mcclendon MD [address] [place] [address] Segmental Wall Installer Obstetrics and Gynecology 01/28/22 07/30/22 Haja Page MD PhD [address] [place] [address] Consulting Physician Neurology 05/04/22 05/03/24 Pema Gill MD [address] [place] [address] Fellow Pulmonary Disease 06/21/22 07/30/22 Chandler Trejo MD [address] [place] [address] [place] [address] Consulting Physician Gastroenterology 07/31/22 02/18/24 Johan Marti MD [address] [place] [address] [address] [place] [address] Referring Physician Neurosurgery 02/06/23 05/03/24 Ariadne Shook, ROSITA [address] [place] [address] Nurse Practitioner Neurology 07/22/23 05/03/24 Pema Gill MD [address] [place] [address] Fellow Pulmonary Disease 07/22/23 07/22/23 Hero Jackman MD [address] [facility] NEUROLOGY SLEEP MED, [facility] [address] [place] [address] Consulting Physician Sleep Medicine 07/22/23 Ronal Jackson MD [address] [place] [address] Consulting Physician Pulmonary Disease 02/19/24 Kristen Perez MD [address] [place] [address] Anesthesiologist Pain Management 02/19/24 Ryan Sanders MD [address] [place] [address] Consulting Physician Urology 05/04/22 Geovanna Alvarenga DPM [facility] [place] [address] Consulting Physician Foot and Ankle Surg 05/04/24 Ariadne Shook NP [address] [place] [address] Nurse Practitioner Neurology 06/01/24 Tabby Light RN [address] [place] [address] [address] [place] [address] Retread Mold Operator 07/05/24 Junior Tobin MD [address] [place] [address] Consulting Physician Urology 07/21/24 documented as of this encounter
--- OUTSIDE RECORDS SUMMARY | 2025-02-14 17:49 | XMS_ITS | Encounter Summary ---
Author Organization [facility] Address [address] [facility] [facility] [place] [address] Phone Care Team Providers Care Mathematical Technician Name Role Phone Anila Patino MD Primary Care Provider [phone] Tj Bonner MD Unavailable [phone] Srinath RodriguezM Unavailable [phone] Buster Xiong Unavailable Unavailable Barrington Yanez MD Unavailable Kai LOUISE MD, Courtney Unavailable [phone] Haja Jones MD Unavailable [phone] Reason for Visit * Reason Comments Medication Refill Encounter Details Date Type Department Care Team (Late st Contact Info) Description 08/13/2023 Refill [facility] [address] [place] [address] Betty Quinn III, MD [address] [place] [address] Medication Refill Social History Tobacco Use Types Packs/Day Years [...] on file documented as of this encounter Miscellaneous Notes * Telephone Encounter - Haja Jones MD - 08/18/2023 8:12 AM CORPORATE STRATEGY ASSOCIATE Patient's urine study is negative for UTI. No antibiotics necessary ORATE STRATEGY ASSOCIATE * Telephone Encounter - Miriam Barnes RN - 08/13/2023 1:16 PM CST Cx from 08/11 shows MUG Medication failed the protocol, provider to review and approve the medication order if appropriate. Requested Prescriptions Pending Prescriptions Disp Refills ciprofloxacin (CIPRO) 500 MG Tablet [Pharmacy Med Name: CIPROFLOXACIN 500MG TABLETS] 10 Tablet 0 Sig: TAKE 1 TABLET BY MOUTH TWICE DAILY FOR 10 DOSES Not Delegated - Off Protocol Failed - 08/13/2023 12:09 PM Failed - This refill cannot be delegated Failed - Active on medication list Passed - Visit with relevant provider in past 12 months or upcoming 90 days Recent Visits Date Type Provider Dept 07/21/23 Procedure Visit Haja Jones MD [facility] [place] 04/28/23 Procedure Visit Betty Quinn III, MD [facility] [place] 01/20/23 Procedure Visit Betty Quinn III, MD [facility] [place] 12/23/22 Office Visit Betty Quinn III, MD [facility] [place] Showing recent visits within past 365 days and meeting all other requirements Future Appointments Date Type Provider Dept 10/27/23 Appointment Haja Jones MD [facility] [place] Showing future appointments within next 90 days and meeting all other requirements ORATE STRATEGY ASSOCIATE documented in this encounter Plan of Treatment Upcoming Encounters Date Type Department Care Team (Late st Contact Info) Description 03/14/2025 11:30 AM CDT Office Visit [facility] [address] [place] [address] Haja Jones MD [address] [place] [address] documented as of this encounter 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 difficile Rule-Out 07/01/2024 07/01/20242024 5:24 PM CORPORATE STRATEGY ASSOCIATE ESBL 11/01/2024 11/01/2024 Assessment Noted Time PHQ-9 Depression Total Score: 1 10/18/19 21 10:30 AM CDT documented as of this encounter Care Teams Mathematical Technician Relationship Specialty Start Date End Date Anila Patino MD [address] [place] [address] PCP - General Internal Medicine 04/15/15 Tj Bonner MD [address] [place] [address] Consulting Physician Neurology 09/01/15 05/02/24 Srinath Rodriguez DPM [address] [place] [address] Podiatry 08/01/16 Buster Xiong [address] [place] [address] 08/01/16 Barrington Yanez MD [address] [facility] [place] [address] Consulting Physician Pulmonary Disease 09/13/16 Betty Quinn III, MD [address] [place] [address] Consulting Physician Urology 12/23/22 Haja Jones MD [address] [place] [address] Consulting Physician Urology 07/21/23 documented as of this encounter
--- OUTSIDE RECORDS SUMMARY | 2025-02-14 17:49 | XMS_ITS | Encounter Summary ---
Author Organization [facility] Address [address] [place] [address] Phone Care Team Providers Care Plant Protection Officer Name Role Phone Anila Patino MD Primary Care Provider [phone] Salomon Medrano MD Unavailable [phone] Rosalinda Looney MD Unavailable Shaquille Blanco MD Unavailable Lit Singer MD Unavailable Johan Marti MD Unavailable Tino Still MD Unavailable Matt Richardson DO Unavailable [phone] Pema Gill MD Unavailable [phone] Jus Patel MD Unavailable Haja Luciano MD Unavailable Yasmine Yanes MD Unavailable Yasmine Yanes MD Unavailable Samantha Mir RN Unavailable Unavailable Tabby Mcclendon MD Unavailable Haja Page MD PhD Unavailable + Pema Gill MD Unavailable [phone] Chandler Trejo MD Unavailable [phone] Johan Marti MD Unavailable +[phone] MichaelAriadne palencia Ricarda COLLECTION ADMINISTRATOR Unavailable [phone] Pema Gill MD Unavailable [phone] Hero Jackman MD Unavailable Ronal Jackson MD Unavailable Kristen Perez MD Unavailable [phone] Ryan Sanders MD Unavailable Geovanna AlvaerngaM Unavailable [phone] [facility] Center[facility]riadne palencia Ricarda COLLECTION ADMINISTRATOR Unavailable [phone] Tabby Light RN Unavailable [phone] Junior Tobin MD Unavailable Encounter Details Date Type Department Care Team (Late st Contact Info) Description 05/01/2020 Orders Only [facility] [address] [place] [address] Scanning, Provider Social History Tobacco [...] on file Legal Sex Female 4:42 AM FLORAL DESIGNER SALESPERSON Gender Identity Female 03/06/2022 7:30 PM CDT Sexual Orientation Straight 03/06/2022 7: 30 PM CDT Occupation Industry Job Start Date Job End Date disabled Not on file Not on file Not on file documented as of this encounter Plan of Treatment Upcoming Encounters Date Type Department Care Team (Late st Contact Info) Description 09/07/2025 Orders Only [facility] Physicians [address] [place] [id number] Scanning, Provider documented as of this encounter Procedures Procedure Name Priority Date/Time Associated Diagnosis Comments GI - RESULT 05/01/2020 documented in this encounter Results * GI - RESULT (05/01/2020) Anatomical Region Laterality Modality Other us Provider Scanning Final Result documented in this encounter Visit Diagnoses Not on filedocumented in this encounter Additional Health Concerns Infection Onset Date Last Indicated Resolved Time COVID: Suspected 08/04/2020 08/04/2020 08/04/2020 2:35 PM FLORAL DESIGNER SALESPERSON COVID: Suspected 10/05/2020 10/05/2020 10/05/2020 1:07 PM CDT COVID: Suspected 12/16/2020 12/16/2020 12/16/2020 3:40 PM CDT COVID: Suspected 03/15/2021 03/15/2021 03/15/2021 8:52 AM CDT COVID: Suspected 08/15/2021 08/15/2021 08/16/2021 3:05 AM FLORAL DESIGNER SALESPERSON COVID: Suspected 05/20/2022 05/20/2022 05/20/2022 2:35 PM FLORAL DESIGNER SALESPERSON COVID19 05/20/2022 05/20/2022 05/30/2022 3:05 AM FLORAL DESIGNER SALESPERSON COVID: Recovered Comment:Added based on recent COVID infection. 05/30/2022 05/30/2022 08/28/2022 3:05 AM C DT COVID: Suspected 01/13/2023 01/14/2023 01/14/2023 3:05 AM CDT COVID: Suspected 05/02/2023 05/02/2023 05/02/2023 5:51 PM FLORAL DESIGNER SALESPERSON COVID: Suspected 10/10/2023 10/10/2023 10/10/2023 4:01 PM CDT COVID: Suspected 12/06/2024 12/06/2024 12/06/2024 12:57 PM CDT documented as of this encounter Care Teams Plant Protection Officer Relationship Specialty Start Date End Date Anila Patino MD PCP - General 09/13/16 Salomon Medrano MD [address] [facility] [address] [place] [address] Rheumatology 01/02/17 Rosalinda Looney MD [address] [facility] [address] [place] [address] Psychiatry 01/02/17 [place] [address] [address] Surgeon Orthopedic Surgery 01/02/17 01/27/22 [place] [address] [address] Radiation Oncology 01/02/17 [place] [address] [address] [address] Neurosurgery 01/02/17 Tino Still MD [address] [place] [address] [address] [place] [address] Surgeon Orthopedic Surgery 09/19/17 Matt Richardson DO [address] [place] [address] [address]RI[address] [place] [address] Consulting Physician Gastroenterology 12/10/19 Pema Gill MD [address] [place] [address] Fellow Pulmonary Disease 01/21/20 02/18/24 Jus Patel MD [address] [place] [address] Consulting Physician Urology 01/21/20 02/05/23 Haja Luciano MD [address] [place] [address] Consulting Physician Cardiovascular Disease 12/21/20 Yasmine Yanes MD [address] [place] [address] Consulting Physician Cardiology 07/23/21 Yasmine Yanes MD [address] [place] [address] Consulting Physician Cardiology 07/23/21 01/27/22 Samantha Mir, RN Registered Nurse Pulmonary Disease 01/10/22 02/18/24 Tabby Mcclendon MD [address] [place] [address] Knitting Machine Mechanic Obstetrics and Gynecology 01/28/22 07/30/22 Haja Page MD PhD [address] [place] [address] Consulting Physician Neurology 05/04/22 05/03/24 Pema Gill MD [address] [place] [address] Fellow Pulmonary Disease 06/21/22 07/30/22 Chandler Trejo MD [address] [place] [address] [place] [address] Consulting Physician Gastroenterology 07/31/22 02/18/24 Johan Marti MD [address] [place] [address] [address] [place] [address] Referring Physician Neurosurgery 02/06/23 05/03/24 Ariadne Shook, ROSITA [address] [place] [address] Nurse Practitioner Neurology 07/22/23 05/03/24 Pema Gill MD [address] [place] [address] Fellow Pulmonary Disease 07/22/23 07/22/23 Hero Jackman MD [address] [facility] NEUROLOGY SLEEP [facility] [address] [place] [address] Consulting Physician Sleep Medicine 07/22/23 Ronal Jackson MD [address] [place] [address] Consulting Physician Pulmonary Disease 02/19/24 Kristen Perez MD [address] [place] [address] Anesthesiologist Pain Management 02/19/24 Ryan Sanders MD [address] [place] [address] [address] [place] [address] Consulting Physician Urology 05/04/22 Geovanna Alvarenga DPM [address] [place] [address] Consulting Physician Foot and Ankle Surg 05/04/24 Ariadne Shook, ROSITA [address] [place] [address] Nurse Practitioner Neurology 06/01/24 Tabby Light, RN [address] [facility] [address] [place] [address] Rewinder 07/05/24 Junior Tobin MD [address] [id number] Consulting Physician Urology 07/21/24 documented as of this encounter
--- OUTSIDE RECORDS SUMMARY | 2025-02-14 17:49 | XMS_ITS | Encounter Summary ---
Author Organization [facility] Address [address] [place] [address] Phone Care Team Providers Care Concrete Buildings Assembler Name Role Phone Anila Patino MD Primary Care Provider [phone] Salomon Medrano MD Unavailable [phone] Rosalinda Looney MD Unavailable Shaquille Blanco MD Unavailable Lit Singer MD Unavailable Johan Marti MD Unavailable [phone] Tino Still MD Unavailable [phone] Matt Richardson DO Unavailable [phone] Pema Gill MD Unavailable [phone] Jus Patel MD Unavailable Yasmine Yanes MD Unavailable [phone] Yasmine Yanes MD Unavailable Samantha Mir RN Unavailable Unavailable Tabby Mcclendon MD Unavailable [phone] Haja Page MD PhD Unavailable + Pema Gill MD Unavailable + [phone] Chandler Trejo MD Unavailable [phone] Johan Marti MD Unavailable [phone] MichaelAriadne palencia Ricarda OUTSIDE PLANT TECHNICIAN Unavailable [phone] Pema Gill MD Unavailable [phone] Hero Jackman MD Unavailable Ronal Jackson MD Unavailable Kristen Perez MD Unavailable [phone] Ryan Sanders MD Unavailable Geovanna Alvarenga DPM Unavailable [phone] Ariadne Shook Ricarda OUTSIDE PLANT TECHNICIAN Unavailable [phone] Tabby Light RN Unavailable [phone] Junior Tobin MD Unavailable Encounter Details Date Type Department Care Team (Latest Contact Info) Description 11/11/2021 Orders Only [facility] Scanning, Provider [...] 07/07/2020 How often do you attend chur ch or confucianist services? More than 4 times per year 07/07/2020 Do you belong to any clubs o r organizations such as episcopal groups, unions, fraternal or athletic groups, or [...] on file Legal Sex Female 4:42 AM STUDENT FINANCE ADVISOR Gender Identity Female 03/06/2022 7:30 PM CDT Sexual Orientation Straight 03/06/2022 7: 30 PM CDT Occupation Industry Job Start Date Job End Date disabled Not on file Not on file Not on file documented as of this encounter Plan of Treatment Upcoming Encounters Date Type Department Care Team (Late st Contact Info) Description 09/07/[address] [facility] [address] [place] [address] Scanning, Provider documented as of this encounter Procedures Procedure Name Priority Date/Time Associated Diagnosis Comments CARDIOLOGY DOCUMENT SCAN 11/11/2021 documented in this encounter Results * CARDIOLOGY DOCUMENT SCAN (11/11/2021) Anatomical Region Laterality Modality Other us Provider Scanning CV CARDIAC SERVICES PROCEDURES Final Result documented in this encounter Visit Diagnoses Not on filedocumented in this encounter Additional Health Concerns Infection Onset Date Last Indicated Resolved Time COVID: Suspected 05/20/2022 05/20/2022 05/20/2022 2:35 PM STUDENT FINANCE ADVISOR COVID19 05/20/2022 05/20/202205/30/2022 3:05 AM STUDENT FINANCE ADVISOR COVID: Recovered Comment:Added based on recent COVID infection. 05/30/2022 05/30/2022 08/28/2022 3:05 AM C DT COVID: Suspected 01/13/2023 01/14/2023 01/14/2023 3:05 AM CDT COVID: Suspected 05/02/2023 05/02/2023 05/02/2023 5:51 PM STUDENT FINANCE ADVISOR COVID: Suspected 10/10/2023 10/10/2023 10/10/2023 4:01 PM CDT COVID: Suspected 12/06/2024 12/06/2024 12/06/2024 12:57 PM CDT documented as of this encounter Care Teams Concrete Buildings Assembler Relationship Specialty Start Date End Date Anila Patino MD PCP - General 09/13/16 Salomon Medrano MD [address] [facility] [address] [place] [address] Rheumatology 01/02/17 Rosalinda Looney MD [address] [facility] [address] [place] [address] Psychiatry 01/02/17 [place] [address] [address] Surgeon Orthopedic Surgery 01/02/17 01/27/22 [place] [address] [address] Radiation Oncology 01/02/17 [place] [address] [address] Neurosurgery 01/02/17 Tino Still MD [address] [facility] [address] [place] [facility] [address] [place] [address] Surgeon Orthopedic Surgery 09/19/17 Matt Richardson DO [address] [facility] [address] [place] [address] [place] [address] Consulting Physician Gastroenterology 12/10/19 Pema Gill MD [address] [place] [address] Fellow Pulmonary Disease 01/21/20 02/18/24 Jus Patel MD [address] [place] [address] Consulting Physician Urology 01/21/20 02/05/23 Yasmine Yanes MD [address] [place] [address] Consulting Physician Cardiology 07/23/21 Yasmine Yanes MD [address] [place] [address] Consulting Physician Cardiology 07/23/21 01/27/22 Samantha Mir, CARINA Registered Nurse Pulmonary Disease 01/10/22 02/18/24 Tabby Mcclendon MD [address] [place] [address] Undergraduate Intern Obstetrics and Gynecology 01/28/22 07/30/22 Haja Page MD PhD [address] [place] [address] Consulting Physician Neurology 05/04/22 05/03/24 Pema Gill MD [address] [place] [address] Fellow Pulmonary Disease 06/21/22 07/30/22 Chandler Trejo MD [address] [place] [address] [facility] [address] [place] [address] Consulting Physician Gastroenterology 07/31/22 02/18/24 Johan Marti MD [address] [place] [address] [facility] [place] [address] Referring Physician Neurosurgery 02/06/23 05/03/24 Ariadne Shook, ROSITA [address] [place] [address] Nurse Practitioner Neurology 07/22/23 05/03/24 Pema Gill MD [address] [place] [address] Fellow Pulmonary Disease 07/22/23 07/22/23 Hero Jackman MD [address] [facility] NEUROLOGY SLEEP MED, [facility] [address] [place] [address] Consulting Physician Sleep Medicine 07/22/23 Ronal Jackson MD [address] [place] [address] Consulting Physician Pulmonary Disease 02/19/24 Kristen Perez MD [address] [place] [address] Anesthesiologist Pain Management 02/19/24 Ryan Sanders MD [address] [address] Consulting Physician Urology 05/04/22 Geovanna Alvarenga DPM [facility] [place] [address] Consulting Physician Foot and Ankle Surg 05/04/24 Ariadne Shook NP [address] [place] [address] Nurse Practitioner Neurology 06/01/24 Tabby Light, RN [address] [place] [address] [address] [place] [address] Automobile Body Worker 07/05/24 Junior Tobin MD [address] [address] Consulting Physician Urology 07/21/24 documented as of this encounter
--- OUTSIDE RECORDS SUMMARY | 2025-02-14 17:49 | XMS_ITS | Encounter Summary ---
Author Organization [facility] Address [address] [place] [address] Phone Care Team Providers Care Software Qa Manager Name Role Phone Anila Patino MD Primary Care Provider [phone] Salomon Medrano MD Unavailable [phone] Rosalinda Looney MD Unavailable Shaquille Blanco MD Unavailable Lit Singer MD Unavailable [phone] Johan Marti MD Unavailable Tino Still MD Unavailable Matt Richardson DO Unavailable [phone] Pema Gill MD Unavailable [phone] Jus Patel MD Unavailable Haja Luciano MD Unavailable Yasmine Yanes MD Unavailable Yasmine Yanes MD Unavailable Samantha Mir RN Unavailable Unavailable Tabby Mcclendon MD Unavailable Haja Page MD PhD Unavailable + Pema Gill MD Unavailable [phone] Chandler Trejo MD Unavailable [phone] Johan Marti MD Unavailable [phone] BouchraAriadne Ricarda BRAND STRATEGY MANAGER Unavailable [phone] Pema Gill MD Unavailable [phone] Hero Jackman MD Unavailable Ronal Jackson MD Unavailable Kirsten Perez MD Unavailable [phone] Ryan Sanders MD Unavailable Geovanna AlvarengaM Unavailable [phone] MichaelevertjoneAriadne Ricarda BRAND STRATEGY MANAGER Unavailable [phone] Tabby Light RN Unavailable [phone] Junior Tobin MD Unavailable Encounter Details Date Type Department Care Team (Late st Contact Info) Description 05/02/2021 Orders Only [facility] [address] [place] [address] Teodoro Patino MD [address] [place] [address] Social History Tobacco Use Types Packs/Day Years [...] week 07/07/2020 How often do you attend [facility] or hoahaoism services? 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 Gender Identity Female 03/06/2022 7:30 PM CDT Sexual Orientation Straight 03/06/2022 7: 30 PM CDT Occupation Industry Job Start Date Job End Date disabled Not on file Not on file Not on file documented as of this encounter Plan of Treatment Upcoming Encounters Date Type Department Care Team (Late st Contact Info) Description 09/07/2025 Orders Only [facility] Physicians [address] [place] [address] Scanning, Provider documented as of this encounter Procedures Procedure Name Priority Date/Time Associated Diagnosis Comments CARDIOLOGY DOCUMENT SCAN 05/02/2021 documented in this encounter Results * SCAN - CARDIOLOGY (05/02/2021) Anatomical Region Laterality Modality Other Teodoro Patino MD CV CARDIAC SERVICES PROCEDURE S Final Result documented in this encounter Visit Diagnoses Not on filedocumented in this encounter Additional Health Concerns Infection Onset Date Last Indicated Resolved Time COVID: Suspected 08/15/2021 08/15/2021 08/16/2021 3:05 AM DIRECTOR OF TEENAGE ACTIVITIES COVID: Suspected 05/20/2022 05/20/2022 05/20/2022 2:35 PM DIRECTOR OF TEENAGE ACTIVITIES COVID19 05/20/2022 05/20/2022 05/30/2022 3:05 AM DIRECTOR OF TEENAGE ACTIVITIES COVID: Recovered Comment:Added based on recent COVID infection. 05/30/2022 05/30/2022 08/28/2022 3:05 AM C DT COVID: Suspected 01/13/2023 01/14/2023 01/14/2023 3:05 AM CDT COVID: Suspected 05/02/2023 05/02/2023 05/02/2023 5:51 PM DIRECTOR OF TEENAGE ACTIVITIES COVID: Suspected 10/10/2023 10/10/2023 10/10/2023 4:01 PM CDT COVID: Suspected 12/06/2024 12/06/2024 12/06/2024 12:57 PM CDT documented as of this encounter Care Teams Software Qa Manager Relationship Specialty Start Date End Date Anila Patino MD PCP - General 09/13/16 Salomon Medrano MD [address] [facility] [address] [place] [address] Rheumatology 01/02/17 Rosalinda Looney MD [address] [facility] [address] [place] [address] Psychiatry 01/02/17 [place] [address] [address] Surgeon Orthopedic Surgery 01/02/17 01/27/22 [place] [address] [address] [facility] [address] [place] [address] Radiation Oncology 01/02/17 [place] [address] [address] [facility] [address] [place] [address] Neurosurgery 01/02/17 Tino Still MD [address] [place] [address] [address] BRI[address] [facility] [address] [place] [address] Surgeon Orthopedic Surgery 09/19/17 Matt Richardson DO [address] [place] [address] [address] BRI[address] [facility] [address] [place] [address] Consulting Physician Gastroenterology 12/10/19 Pema Gill MD [address] [place] [address] Fellow Pulmonary Disease 01/21/20 02/18/24 Jus Patel MD [address] [place] [address] Consulting Physician Urology 01/21/20 02/05/23 Haja Luciano MD [address] [place] [address] Consulting Physician Cardiovascular Disease 12/21/20 Yasmine Yanes MD [address] [place] [address] Consulting Physician Cardiology 07/23/21 Yasmine Yanes MD [address] [place] [address] Consulting Physician Cardiology 07/23/21 01/27/22 Samantha Mir, RN Registered Nurse Pulmonary Disease 01/10/22 02/18/24 Tabby Mcclendon MD [address] [place] [address] Thinner Sprayer Obstetrics and Gynecology 01/28/22 07/30/22 Haja Page MD PhD [address] [address] Consulting Physician Neurology 05/04/22 05/03/24 Pema Gill MD [address] [place] [address] Fellow Pulmonary Disease 06/21/22 07/30/22 Chandler Trejo MD [address] [facility] [address] [place] [address] Consulting Physician Gastroenterology 07/31/22 02/18/24 Johan Marti MD [address] [facility] [address] [place] [address] Referring Physician Neurosurgery 02/06/23 05/03/24 Ariadne Shook, ROSITA [address] [place] [address] Nurse Practitioner Neurology 07/22/23 05/03/24 Pema Gill MD [address] [place] [address] Fellow Pulmonary Disease 07/22/23 07/22/23 Hero Jackman MD [address] [facility] SLEEP [facility] [address] [place] [address] Consulting Physician Sleep Medicine 07/22/23 Ronal Jackson MD [address] [place] [address] Consulting Physician Pulmonary Disease 02/19/24 Kristen Perez MD [address] [place] [address] Anesthesiologist Pain Management 02/19/24 Ryan Sanders MD [address] [address] Consulting Physician Urology 05/04/22 Geovanna Alvarenga DPM [address] [place] [address] Consulting Physician Foot and Ankle Surg 05/04/24 Ariadne Shook NP [address] [place] [address] Nurse Practitioner Neurology 06/01/24 Tabby Light RN [address] [place] [address] [address] [place] [address] Sales Coach 07/05/24 Junior Tobin MD [address] [place] [id number] Consulting Physician Urology 07/21/24 documented as of this encounter
--- OUTSIDE RECORDS SUMMARY | 2025-02-14 17:49 | XMS_ITS | Encounter Summary ---
Author Organization [facility] Healthcare Address [address] [place] [address] Care Team Providers Care Facility Service Associate Name Role Phone Anila Patino MD Primary Care Provider [phone] Salomon Medrano MD Unavailable [phone] Rosalinda Looney MD Unavailable Lit Singer MD Unavailable Johan Marti MD Unavailable Tino Still MD Unavailable [phone] Matt Richardson DO Unavailable Yasmine Yanes MD Unavailable Hero Jackman MD Unavailable Ronal Jackson MD Unavailable Kristen Perez MD Unavailable Ryan Sanders MD Unavailable Geovanna Alvarenga DPM Unavailable Ariadne Shook NP Unavailable Tabby Light RN Unavailable Junior Tobin MD Unavailable Encounter Details Date Type Department Care Team (Late st Contact Info) Description 11/23/2024 Orders Only [facility] Health Information Management [address] [place] [address] Scanning, Provider Social History Tobacco Use Types Packs/Day Years Used Date Smoking Tobacco: Never Passive Smoke Exposure: Past Smokeless Tobacco: Never Alcohol Use Standard Drinks/Week Comments No 0 (1 standard drink = 0.6 oz pure alcohol) occassional mixed drink for special occassions [facility] Utilities Answer Date Recorded In the past 12 months has th e [employer], gas, oil, or water [employer] threatened to shut off services in your [...] week 07/05/2024 How often do you attend [facility] or sabianism services? More than 4 times per year 07/05/2024 Do you belong to any clubs o r organizations such as cheondoism groups, unions, fraternal or athletic groups, or school groups? No 07/05/2024 How often do you attend meet ings of the clubs or organizations you belong to? Never 07/05/2024 Are you , , di vorced, , never , or living with a partner? 07/05/2024 AUDIT-C Answer Date Recorded Q1: How often do you have a drink containing alcohol? Never 11/03/2024 Q2: How many drinks containi ng alcohol do you have on a typical day when you are drinking? Patient does not drink Q3: How often do you have si x or more drinks on one occasion? Never 11/03/2024 Overall Financial Resource Strain (CARDIA) Answe r [...] money to buy more. Never true 07/05/19 Within the past 12 months, t he [...] any time in the past 12 [facility], were you homeless or living in a jail (including now)? 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 Author ZAC General Goal - Patient schedules and keeps appointments with all recommended providers ACO Care Management On track(2024 2:54 PM CDT) No Tabby Light, RN Note: Problem: Potential for medical complications [...] Care Management On track(2024 2:54 PM CDT) No Tabby Light RN Note: Problem: Knowledge deficit related to [...] take, when to call CM or provider. [facility] Chronic Pain Care Plan Chronic Care [...] on stairs Contact your local community or [facility] for information on exercise, fall prevention programs, or options for improving home safety. documented as of this encounter Procedures Procedure Name Priority Date/Time Associated Diagnosis Comments SCAN - LABS 11/23/2024 documented in this encounter Results * SCAN - LABS (11/23/2024) us Provider Scanning Final Result documented in this encounter Visit Diagnoses Not on filedocumented in this encounter Additional Health Concerns Infection Onset Date Last Indicated Resolved Time COVID: Suspected 12/06/2024 12/06/2024 12/06/2024 12:57 PM CDT documented as of this encounter Care Teams Facility Service Associate Relationship Specialty Start Date End Date Anila Patino MD PCP - General 09/13/16 Salomon Medrano MD [address] [facility] [address] [place] [address] Rheumatology 01/02/17 Rosalinda Looney MD [address] [facility] [address] [place] [address] Psychiatry 01/02/17 Lit Singer MD [address] [facility] [address] [place] [address] Radiation Oncology 01/02/17 Johan Marti MD [address] [facility] [address] [place] [address] Neurosurgery 01/02/17 Tino Still MD [address] [place] [address] [address] [place] [address] Surgeon Orthopedic Surgery 09/19/17 Matt Richardson DO [address] [place] [address] [address] [place] [address] Consulting Physician Gastroenterology 12/10/19 Yasmine Yanes MD [address] [facility] [address] [place] [address] Consulting Physician Cardiology 07/23/21 Hero Jackman MD [address] [facility] NEUROLOGY SLEEP [facility] [address] [place] [address] Consulting Physician Sleep Medicine 07/22/23 Ronal Jackson MD [address] [place] [address] Consulting Physician Pulmonary Disease 02/19/24 Kristen Perez MD [address] [place] [address] Anesthesiologist Pain Management 02/19/24 Ryan Sanders MD 2 [facility] [address] [place] [address] Consulting Physician Urology 05/04/22 Geovanna Alvarenga DPM [address] [place] [address] Consulting Physician Foot and Ankle Surg 05/04/24 Ariadne Shook NP [address] [place] [address] Nurse Practitioner Neurology 06/01/24 Tabby Light RN [address] [place] [address] [address] [place] [address] Milieu Coordinator 07/05/24 Junior Tobin MD [address] [address] Consulting Physician Urology 07/21/24 documented as of this encounter
--- OUTSIDE RECORDS SUMMARY | 2025-02-14 17:50 | XMS_ITS | Encounter Summary ---
Author Organization [facility] Health Address [address] [place] [address] Care Team Providers Care Health Insurance Specialist Name Role Phone Salomon Medrano MD Unavailable Unavailable Chandler Trejo MD Unavailable Cinthya Patino MD Primary Care Provider [phone] Encounter Details Date Type Department Care Team (Late st Contact Info) Description 03/24/2014 [facility] Outpatient Visit EXTERNAL NON-SS DEPT Salomon Medrano MD Social History Tobacco Use Types Packs/Day Years Used Date Smoking Tobacco: Never Smokeless Tobacco: Never Alcohol Use Standard Drinks/Week Comments Yes 0 (1 standard drink = 0.6 oz pur e alcohol) occ Comments No Sex and Gender Information Value Date Recorded Sex Assigned at Not on file Legal Sex Female 4:21 AM MANAGER MATERIALS MANAGEMENT Gender Identity Not on file Sexual Orientation Not on file 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 04/01/11 Chandler Trejo MD Gastroenterology 11/29/13 documented as of this encounter
--- OUTSIDE RECORDS SUMMARY | 2025-02-14 17:50 | XMS_ITS | Encounter Summary ---
Author Organization [facility] Address [address] [place] [address] Phone Care Team Providers Care Mining Helper Name Role Phone Anila Patino MD Primary Care Provider [phone] Salomon Medrano MD Unavailable [phone] Rosalinda Looney MD Unavailable Barrington Yanez MD Unavailable Shaquille Blanco MD Unavailable Onesimo Magaña MD Unavailable Lit Singer MD Unavailable Johan Marti MD Unavailable Tino Still MD Unavailable [phone] Matthias Christianson MD Unavailable Matt Richardson DO Unavailable [phone] Pema Gill MD Unavailable [phone] Jus Patel MD Unavailable Haja Luciano MD Unavailable Yasmine Yanes MD Unavailable Yasmine Yanes MD Unavailable [phone] Samantha Mir RN Unavailable Unavailable Tabby Mcclendon MD Unavailable Haja Page MD PhD Unavailable + Pema Gill MD Unavailable [phone] Chandler Trejo MD Unavailable [phone] Johan Marti MD Unavailable [phone] Ariadne Shook UNDERWRITING TECHNICIAN Unavailable [phone] Pema Gill MD Unavailable [phone] Hero Jackman MD Unavailable Ronal Jackson MD Unavailable Kristen Perez MD Unavailable [phone] Ryan Sanders MD Unavailable Geovanna AlvarengaM Unavailable [phone] Ariadne Shook UNDERWRITING TECHNICIAN Unavailable [phone] Tabby Light RN Unavailable [phone] Junior Tobin MD Unavailable Encounter Details Date Type Department Care Team (Late st Contact Info) Description 01/21/2017 Orders Only [facility] [address] [place] [id number] Anila Patino MD [address] [place] [address] Mixed hyperlipidemia (Primary Dx); Urinary tract infection, site not specified Social History Tobacco Use Types Packs/Day Years Used Date Smoking Tobacco: Never Smokeless Tobacco: Never Alcohol Use Standard Drinks/Week Comments No 0 (1 standard drink = 0.6 oz pure alcohol) occassional mixed drink for special occassions Comments No Sex and Gender Information Value Date Recorded Sex Assigned at Not on file Legal Sex 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 Gender Identity Female 03/06/2022 7:30 PM CDT Sexual Orientation Straight 03/06/2022 7: 30 PM CDT documented as of this encounter Plan of Treatment Upcoming Encounters Date Type Department Care Team (Late st Contact Info) Description 09/07/2025 Orders Only [facility] [address] [place] [address] Scanning, Provider Scheduled Orders Name Type Priority Associated Diagnoses Orde r Schedule CBC with auto differential Lab Routine Mixed hyperlipidemia Expected: 03/19/2017, Expires: 01/21/2018 Erythrocyte sedimentation rate Lab Routine Mixed hyperlipidemia Expected: 03/19/2017, Expires: 01/21/2018 Urinalysis reflex to microscopic Lab Routine Urinary tract infection, site not specified Expected: 03/19/2017, Expires: 01/21/2018 Urinalysis reflex to microscopic and culture Lab Routine Urinary tract infection, site not specified Expected: 03/19/2017, Expires: 01/21/2018 Cholesterol, LDL, direct Lab Routine Mixed hyperlipidemia Expected: 03/19/2017, Expires: 01/21/2018 Comprehensive metabolic panel Lab Routine Mixed hyperlipidemia Expected: 03/19/2017, Expires: 01/21/2018 documented as of this encounter Visit Diagnoses Diagnosis Mixed hyperlipidemia- Primary Urinary tract infection, site not specified documented in this encounter Additional Health Concerns Infection Onset Date Last Indicated Resolved Time COVID: Suspected 08/04/2020 08/04/2020 08/04/2020 2:35 PM WESTERN TACK ASSEMBLY LINE WORKER COVID: Suspected 10/05/2020 10/05/2020 10/05/2020 1:07 PM CDT COVID: Suspected 12/16/2020 12/16/2020 12/16/2020 3:40 PM CDT COVID: Suspected 03/15/2021 03/15/2021 03/15/2021 8:52 AM CDT COVID: Suspected 08/15/2021 08/15/2021 08/16/2021 3:05 AM WESTERN TACK ASSEMBLY LINE WORKER COVID: Suspected 05/20/2022 05/20/2022 05/20/2022 2:35 PM WESTERN TACK ASSEMBLY LINE WORKER COVID19 05/20/2022 05/20/2022 05/30/2022 3:05 AM WESTERN TACK ASSEMBLY LINE WORKER COVID: Recovered Comment:Added based on recent COVID infection. 05/30/2022 05/30/2022 08/28/2022 3:05 AM C DT COVID: Suspected 01/13/2023 01/14/2023 01/14/2023 3:05 AM CDT COVID: Suspected 05/02/2023 05/02/2023 05/02/2023 5:51 PM WESTERN TACK ASSEMBLY LINE WORKER COVID: Suspected 10/10/2023 10/10/2023 10/10/2023 4:01 PM CDT COVID: Suspected 12/06/2024 12/06/2024 12/06/2024 12:57 PM CDT documented as of this encounter Care Teams Mining Helper Relationship Specialty Start Date End Date Anila Patino MD PCP - General 09/13/16 Salomon Medrano MD [address] [facility] [address] [place] [address] Rheumatology 01/02/17 Rosalinda Looney MD [address] [facility] [address] [place] [address] Psychiatry 01/02/17 Barrington Yanez MD [address] [facility] [address] [place] [address] Pulmonary Disease 01/02/17 01/20/20 [place] [address] [address] [facility] [address] [place] [address] Surgeon Orthopedic Surgery 01/02/17 01/27/22 [place] [address] [address] [facility] [address] [place] [address] Otolaryngology 01/02/17 01/20/20 [place] [address] [facility] [address] [place] [address] Radiation Oncology 01/02/17 [place] [address] [facility] [address] [place] [address] Neurosurgery 01/02/17 Tino Still MD [address] [place] [address] [address] T[address] [facility] [address] [place] [address] Surgeon Orthopedic Surgery 09/19/17 [place] [address] [facility] [address] [place] [address] Referring Physician Urology 09/19/17 01/20/20 [place] [address] [facility] [address] [place] [address] Consulting Physician Gastroenterology 12/10/19 Pema Gill MD [address] [place] [address] Fellow Pulmonary Disease 01/21/20 02/18/24 Jus Patel MD [address] [place] [address] Consulting Physician Urology 01/21/20 02/05/23 Haja Luciano MD [address] [place] [address] Consulting Physician Cardiovascular Disease 12/21/20 Yasmine Yanes MD [address] [place] [address] Consulting Physician Cardiology 07/23/21 Yasmine Yanes MD [address] [place] [address] Consulting Physician Cardiology 07/23/21 01/27/22 Samantha Mir, RN Registered Nurse Pulmonary Disease 01/10/22 02/18/24 Tabby Mcclendon MD [address] [place] [address] [facility] Obstetrics and Gynecology 01/28/22 07/30/22 Haja Page MD PhD [address] [place] [address] Consulting Physician Neurology 05/04/22 05/03/24 Pema Gill MD [address] [place] [address] Fellow Pulmonary Disease 06/21/22 07/30/22 Chandler Trejo MD [address] [place] [address] [place] [address] Consulting Physician Gastroenterology 07/31/22 02/18/24 Johan Marti MD [address] [facility] [place] [address] Referring Physician Neurosurgery 02/06/23 05/03/24 Ariadne Shook, ROSITA [address] [place] [address] Nurse Practitioner Neurology 07/22/23 05/03/24 Pema Gill MD [address] [place] [address] Fellow Pulmonary Disease 07/22/23 07/22/23 Hero Jackman MD [address] [facility] NEUROLOGY SLEEP [facility], [facility] [address] [place] [address] Consulting Physician Sleep Medicine 07/22/23 Ronal Jackson MD [address] [place] [address] Consulting Physician Pulmonary Disease 02/19/24 Kristen Perez MD [address] [place] [address] Anesthesiologist Pain Management 02/19/24 Ryan Sanders MD [address] [place] [address] Consulting Physician Urology 05/04/22 Geovanna Alvarenga DPM [address] [place] [address] Consulting Physician Foot and Ankle Surg 05/04/24 Ariadne Shook, ROSITA [address] [place] [address] Nurse Practitioner Neurology 06/01/24 Tabby Light RN [address] [place] [address] [address] [place] [address] Electrical Systems Drafter 07/05/24 [facility] Tobin MD [facility] [address] [place] [address] Consulting Physician Urology 07/21/24 documented as of this encounter
--- OUTSIDE RECORDS SUMMARY | 2025-02-14 17:50 | XMS_ITS | Encounter Summary ---
Author Organization [facility] Healthcare Address [address] [place] [address] Care Team Providers Care Counter Weigher Name Role Phone Anila Patino MD Primary Care Provider [phone] Salomon Medrano MD Unavailable [phone] Rosalinda Looney MD Unavailable Lit Singer MD Unavailable Johan Marti MD Unavailable Tino Still MD Unavailable Matt Richardson DO Unavailable [phone] Yasmine Yanes MD Unavailable Hero Jackman MD Unavailable Ronal Jackson MD Unavailable Kristen Perez MD Unavailable Ryan Sanders MD Unavailable Geovanna Alvarenga DPM Unavailable Ariadne Shook NP Unavailable [phone] Tabby Light RN Unavailable Junior Tobin MD Unavailable Encounter Details Date Type Department Care Team (Late st Contact Info) Description 10/13/2024 Orders Only [facility] Health Information Management [address] [place] [address] Scanning, Provider Social History Tobacco Use Types Packs/Day Years Used Date Smoking Tobacco: Never Passive Smoke Exposure: Past Smokeless Tobacco: Never Alcohol Use Standard Drinks/Week Comments No 0 (1 standard drink = 0.6 oz pure alcohol) occassional mixed drink for special occassions [facility] Utilities Answer Date Recorded In the past 12 months has th e [employer], gas, oil, or water [employer] threatened to shut off services in your [...] week 07/05/2024 How often do you attend [facility] or religion services? More than 4 times per year 07/05/2024 Do you belong to any clubs o r organizations such as uatsdin groups, unions, fraternal or athletic groups, or school groups? No 07/05/2024 How often do you attend meet ings of the clubs or organizations you belong to? Never 07/05/2024 Are you , , di vorced, , never , or living with a partner? 07/05/2024 AUDIT-C Answer Date Recorded Q1: How often do you have a drink containing alcohol? Never 04/21/2024 Q2: How many drinks containi ng alcohol do you have on a typical day when you are drinking? Patient does not drink Q3: How often do you have si x or more drinks on one occasion? Never 04/21/2024 Overall Financial Resource Strain (CARDIA) Answe r [...] any time in the past [address] [facility], were you homeless or living in a prison (including now)? 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 [facility] Chronic Pain Care Plan Chronic Care Management [...] on stairs Contact your local community or [facility] for information on exercise, fall prevention programs, or options for improving home safety. documented as of this encounter Procedures Procedure Name Priority Date/Time Associated Diagnosis Comments SCAN - LABS 10/13/2024 documented in this encounter Results * SCAN - LABS (10/13/2024) us Provider Scanning Final Result documented in this encounter Visit Diagnoses Not on filedocumented in this encounter Additional Health Concerns Infection Onset Date Last Indicated Resolved Time COVID: Suspected 12/06/2024 12/06/2024 12/06/2024 12:57 PM CDT documented as of this encounter Care Teams Counter Weigher Relationship Specialty Start Date End Date Anila Patino MD PCP - General 09/13/16 Salomon Medrano MD [address] [facility] [address] [place] [address] Rheumatology 01/02/17 Rosalinda Looney MD [address] [facility] [address] [place] [address] Psychiatry 01/02/17 Lit Singer MD [address] [facility] [address] [place] [address] Radiation Oncology 01/02/17 Johan Marti MD [address] [facility] [address] [place] [address] Neurosurgery 01/02/17 Tino Still MD [address] [place] [address] [address]RI[address] [place] [address] Surgeon Orthopedic Surgery 09/19/17 Matt Richardson DO [address] [place] [address] [address] [place] [address] Consulting Physician Gastroenterology 12/10/19 Yasmine Yanes MD [address] [facility] [address] [facility] [address] [place] [address] Consulting Physician Cardiology 07/23/21 Hero Jackman MD [address] [facility] NEUROLOGY SLEEP [facility] [address] [place] [address] Consulting Physician Sleep Medicine 07/22/23 Ronal Jackson MD [address] [place] [address] Consulting Physician Pulmonary Disease 02/19/24 Kristen Perez MD [address] [place] [address] Anesthesiologist Pain Management 02/19/24 Ryan Sanders MD 2 [facility] [address] [place] [address] Consulting Physician Urology 05/04/22 Geovanna Alvarenga DPM [address] [place] [address] Consulting Physician Foot and Ankle Surg 05/04/24 Ariadne Shook NP [address] [place] [address] Nurse Practitioner Neurology 06/01/24 Tabby Light RN [address] [place] [address] [address] [place] [address] Cytology Teacher 07/05/24 Junior Tobin MD [address] [address] Consulting Physician Urology 07/21/24 documented as of this encounter
--- OUTSIDE RECORDS SUMMARY | 2025-02-14 17:50 | XMS_ITS | Encounter Summary ---
Author Organization [facility] Address [address] [place] [address] Phone Care Team Providers Care [employer] Name Role Phone Anila Patino MD Primary Care Provider [phone] Salomon Medrano MD Unavailable [phone] Rosalinda Looney MD Unavailable Barrington Yanez MD Unavailable Shaquille Blanco MD Unavailable nOesimo Magaña MD Unavailable [phone] Lit Singer MD Unavailable [phone] Johan Marti MD Unavailable Tino Still MD Unavailable Matthias Christianson MD Unavailable Matt Richardson DO Unavailable [phone] Pema Gill MD Unavailable [phone] Jus Patel MD Unavailable Haja Luciano MD Unavailable Yasmine Yanes MD Unavailable Yasmine Yanes MD Unavailable [phone] Samantha Mir RN Unavailable Unavailable Tabby Mcclendon MD Unavailable [phone] Haja Page MD PhD Unavailable + Pema Gill MD Unavailable [phone] Chandler Trejo MD Unavailable [phone] Johan Marti MD Unavailable [phone] Ariadne Shook ULTRASONIC WELDING MACHINE OPERATOR Unavailable [phone] Pema Gill MD Unavailable [phone] Hero Jackman MD Unavailable Ronal Jackson MD Unavailable Kristen Perez MD Unavailable [phone] Ryan Sanders MD Unavailable Geovanna AlvarengaM Unavailable [phone] Ariadne Shook ULTRASONIC WELDING MACHINE OPERATOR Unavailable [phone] Tabby Light RN Unavailable [phone] Junior Tobin MD Unavailable Encounter Details Date Type Department Care Team (Late st Contact Info) Description 01/04/2020 Orders Only [facility] [address] [place] [address] Scanning, Provider Social History Tobacco [...] on file 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 Gender Identity Female 03/06/2022 7:30 PM CDT Sexual Orientation Straight 03/06/2022 7: 30 PM CDT Occupation Industry Job Start Date Job End Date disabled Not on file Not on file Not on file documented as of this encounter Plan of Treatment Upcoming Encounters Date Type Department Care Team (Late st Contact Info) Description 09/07/2025 Orders Only [facility] [address] [place] [address] Scanning, Provider documented as of this encounter Procedures Procedure Name Priority Date/Time Associated Diagnosis Comments SCAN - RADIOLOGY/IMAGING 01/04/2020 documented in this encounter Results * SCAN - RADIOLOGY/IMAGING (01/04/2020) Anatomical Region Laterality Modality Other us Provider Scanning Final Result documented in this encounter Visit Diagnoses Not on filedocumented in this encounter Additional Health Concerns Infection Onset Date Last Indicated Resolved Time COVID: Suspected 08/04/2020 08/04/2020 08/04/2020 2:35 PM SECONDARY SPECIAL EDUCATION TEACHER COVID: Suspected 10/05/2020 10/05/2020 10/05/2020 1:07 PM CDT COVID: Suspected 12/16/2020 12/16/2020 12/16/2020 3:40 PM CDT COVID: Suspected 03/15/2021 03/15/2021 03/15/2021 8:52 AM CDT COVID: Suspected 08/15/2021 08/15/2021 08/16/2021 3:05 AM SECONDARY [employer] EDUCATION TEACHER COVID: Suspected 05/20/2022 05/20/2022 05/20/2022 2:35 PM SECONDARY SPECIAL EDUCATION TEACHER COVID19 05/20/2022 05/20/2022 05/30/2022 3:05 AM SECONDARY SPECIAL EDUCATION TEACHER COVID: Recovered Comment:Added based on recent COVID infection. 05/30/2022 05/30/2022 08/28/2022 3:05 AM C DT COVID: Suspected 01/13/2023 01/14/2023 01/14/2023 3:05 AM CDT COVID: Suspected 05/02/2023 05/02/2023 05/02/2023 5:51 PM SECONDARY SPECIAL EDUCATION TEACHER COVID: Suspected 10/10/2023 10/10/2023 10/10/2023 4:01 PM CDT COVID: Suspected 12/06/2024 12/06/2024 12/06/2024 12:57 PM CDT documented as of this encounter Care Teams [employer] Relationship Specialty Start Date End Date Anila Patino MD PCP - General 09/13/16 Salomon Medrano MD [address] [facility] [address] [place] [address] Rheumatology 01/02/17 Rosalinda Looney MD [address] [facility] [address] [place] [address] Psychiatry 01/02/17 Barrington Yanez MD [address] [facility] [address] [place] [address] Pulmonary Disease 01/02/17 01/20/20 [place] [address] [address] Surgeon Orthopedic Surgery 01/02/17 01/27/22 [place] [address] [address] Otolaryngology 01/02/17 01/20/20 [place] [address] [address] Radiation Oncology 01/02/17 [place] [address] [address] Neurosurgery 01/02/17 Tino Still MD [address] [facility] [address] [place] [address] [address] Surgeon Orthopedic Surgery 09/19/17 [place] [address] [address] [facility] [address], [place] [address] Referring Physician Urology 09/19/17 01/20/20 [place] [address] [address] [facility] [address], [place] [address] Consulting Physician Gastroenterology 12/10/19 Pema Gill MD [address] [place] [address] Fellow Pulmonary Disease 01/21/20 02/18/24 Jus Patel MD [address] [place] [address] Consulting Physician Urology 01/21/20 02/05/23 Haja Luciano MD [address] [place] [address] Consulting Physician Cardiovascular Disease 12/21/20 Yasmine Yanes MD [address] [place] [address] Consulting Physician Cardiology 07/23/21 Yasmine Yanes MD [address] [place] [address] Consulting Physician Cardiology 07/23/21 01/27/22 Samantha Mir, RN Registered Nurse Pulmonary Disease 01/10/22 02/18/24 Tabby Mcclendon MD [address] [place] [address] Entomology Professor Obstetrics and Gynecology 01/28/22 07/30/22 Haja Page MD PhD [address] [place] [address] Consulting Physician Neurology 05/04/22 05/03/24 Pema Gill MD [address] [place] [address] Fellow Pulmonary Disease 06/21/22 07/30/22 Chandler Trejo MD [address] [facility] [address] [place] [address] Consulting Physician Gastroenterology 07/31/22 02/18/24 Johan Marti MD [address] [place] [address] [address] [place] [address] Referring Physician Neurosurgery 02/06/23 05/03/24 Ariadne Shook, ROSITA [address] [place] [address] Nurse Practitioner Neurology 07/22/23 05/03/24 Pema Gill MD [address] [place] [address] Fellow Pulmonary Disease 07/22/23 07/22/23 Hero Jackman MD [address] [facility] NEUROLOGY SLEEP [facility] [address] [place] [address] Consulting Physician Sleep Medicine 07/22/23 Ronal Jackson MD [address] [place] [address] Consulting Physician Pulmonary Disease 02/19/24 Kristen Perez MD [address] [place] [address] Anesthesiologist Pain Management 02/19/24 Ryan Sanders MD [address] [address] Consulting Physician Urology 05/04/22 Geovanna Alvarenga DPM [address] [place] [address] Consulting Physician Foot and Ankle Surg 05/04/24 Ariadne Shook NP [address] [place] [address] Nurse Practitioner Neurology 06/01/24 Tabby Light RN [address] [place] [address] [address] [place] [address] Chief Cook 07/05/24 Junior Tobin MD [address] [place] [phone] Consulting Physician Urology 07/21/24 documented as of this encounter
--- OUTSIDE RECORDS SUMMARY | 2025-02-14 17:50 | XMS_ITS | Clinical Summary ---
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 Role Phone Anila Patino MD Primary Care Provider [phone] Srinath Rodriguez DPM Unavailable [phone] Buster Xiong Unavailable Unavailable Kai LOUISE MD, Courtney Unavailable [phone] Haja Jones MD Unavailable [phone] Allergies Active Allergy Reactions Criticality Noted Date Comments Codeine Hives 10/20/2015 Penicillins Hives 10/20/2015 Scopolamine Other (see Comments) 09/11/2016 Caused confusion & hallucinations Sulfa Antibiotics Hives 10/20/2015 Medications HUMIRA PEN 40 MG/0.8ML Pen-injector KitIndications:Rheu matoid Arthritis,40 mg by Subcutaneous route every 14 days. 40 mg by Subcutaneous route every 14 days. Indications: Rheumatoid Arthritis, 40 mg by Subcutaneous route every 14 days. 016 Active predniSONE (DELTASONE) 5 MG Tablet Take 5 mg by mouth every morning. 016 Active Probiotic Product (PROBIOTIC DAILY PO) Take 1 Capsule by mouth every morning. Active Multiple Vitamin (MULTI-VITAMIN PO) Take 1 Tablet by mouth every morning. Active aspirin EC 81 MG Tablet Delayed Response Take 81 mg by mouth every morning. Active montelukast (SINGULAIR) 10 MG Tablet Take 10 mg by mouth every evening. Active acetaminophen (TYLENOL) 325 MG Tablet Take 325 mg by mouth 2 times daily. Takes with tramadol Active busPIRone (BUSPAR) 10 MG Tablet Take 10 mg by mouth 2 times daily. Active clonazePAM (KlonoPIN) 0.5 MG Tablet Take 0.5 mg by mouth daily as needed for Anxiety. Activ e clotrimazole (MYCELEX) 10 MG Юлия Take 10 mg by mouth 2 times daily. Take prophylactically Active escitalopram (LEXAPRO) 20 MG Tablet Take 20 mg by mouth daily. Active fluticasone-vilante rol (BREO ELLIPTA) 100-25 MCG/INH AEROSOL POWDER, BREATH ACTIVATED take 1 Puff by inhalation 2 times daily. Active indapamide (LOZOL) 2.5 MG Tablet Take 2.5 mg by mouth every morning. Active OXYGEN CONCENTRATOR take 4 L by inhalation continuous. 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 Take one tablet by mouth every day Active gabapentin (NEURONTIN) 600 MG Tablet Take 600 mg by mouth nightly as needed for Other (RLS). Active benzonatate (TESSALON) 100 MG Capsule Take 100 mg by mouth 3 times daily as needed for Cough. Active calcium citrate-vitamin D (Calcium Citrate + D3) 200-250 MG-UNIT Tablet Take 1 Tablet by mouth daily. Active traMADol (ULTRAM) 50 MG TabletIndications:H ematoma Take 1 Tablet by mouth every 8 hours as needed for Moderate or more severe pain or Severe pain. 20 Tablet Active potassium chloride (MICRO-K) 10 MEQ Capsule CR Take 1 Capsule by mouth 2 times daily. 60 Capsule Active Additional Information Patient taking differently: 20 mEqOralDAILY, Reported on 12/13/2024 fluconazole (DIFLUCAN) 100 MG TabletIndications:F ungus present in urine Take 1 Tablet by mouth daily for 3 days. 3 Tablet 023 Active Additional Information Patient not taking.Reason: Other (therapy complete), Reported on 12/13/2024 atorvastatin (LIPITOR) 20 MG Tablet Take 20 mg by mouth daily. Active clotrimazole (MYCELEX) 10 MG Юлия Take 10 mg by mouth 4 times daily. Patient takes 2 x daily Active pantoprazole (PROTONIX) 40 MG Tablet Delayed ResponseIndications :Symptomatic Gastroesophageal Reflux Disease (Inactive) Take 1 Tablet by mouth every morning (before breakfast). Indications: Gastroesophageal Reflux Disease with Current Symptoms 30 Tablet 025 Active traZODone (DESYREL) 50 MG Tablet Take 1 Tablet by mouth nightly as needed for Sleep. 90 Tablet 025 Active pramipexole (MIRAPEX) 1.5 MG Tablet Take 2 Tablets by mouth every evening. 90 Tablet 025 Active Additional Information Patient taking differently: 3 TabletOral EVERY EVENING, Reported on 12/13/2024 dicyclomine (BENTYL) 20 MG Tablet Take 1 Tablet by mouth every 6 hours. 30 Tablet 025 Active Adalimumab (Humira, 2 Pen,) 40 MG/0.4ML Auto-injector Kit 40 mg by Subcutaneous route once a week. 025 Active traZODone (DESYREL) 150 MG Tablet Take 300 mg by mouth nightly as needed for Sleep. Active mycophenolate mofetil (CELLCEPT) 500 MG Tablet Take 1,000 mg by mouth 2 times daily. Active Vilazodone HCl 10 MG Tablet Take 1 Tablet by mouth daily. with food Active amLODIPine (NORVASC) 5 MG Tablet Take 5 mg by mouth nightly. Active furosemide (LASIX) 40 MG Tablet Take 40 mg by mouth 2 times daily (with meals). Active spironolactone (ALDACTONE) 25 MG Tablet Take 25 mg by mouth daily. Active tiZANidine (ZANAFLEX) 4 MG Tablet Take 4 mg by mouth nightly as needed for Muscle spasms. Active gabapentin (NEURONTIN) 100 MG Capsule Take 300 mg by mouth nightly. Active albuterol (ProAir HFA) 108 (90 Base) MCG/ACT Aerosol Solution take 2 Puffs by inhalation every 6 hours as needed for Cough or Wheezing. Active albuterol (PROVENTIL, VENTOLIN) (2.5 MG/3ML) 0.083% Nebulizer Soln 2.5 mg by Nebulization route every 6 hours as needed for Shortness of Breath or Wheezing. Active ondansetron (ZOFRAN-ODT) 4 MG TABLET DISPERSIBLE Take 4 mg by mouth every 8 hours as needed for Nausea - 1st line. Active Miconazole Nitrate Applicator (Miconazole 3 Applicator) 200 & 2 MG-% (9GM) Kit 1 Application by Vaginal route nightly. for 7 days Activ e predniSONE (DELTASONE) 50 MG Tablet Take 1 Tablet by mouth daily. 5 Tablet 025 Active Active Problems Problem Noted Date Diagnosed Date Intractable nausea and vomiting 06/30/2024 Abdominal pain 06/30/2024 Chronic respiratory failure with hypoxia and hyp ercapnia 06/30/2024 Infection due to parainfluenza virus 4 2 History of stroke 06/20/2021 Hypokalemia 06/20/2021 Pneumonia, community acquired 06/20/2021 Sinus pause 08/31/2020 Acute CVA (cerebrovascular accident) 08/31/2020 RLS (restless legs syndrome) 08/27/2020 GERD (gastroesophageal reflux disease) 1 Chronic respiratory failure with hypercapnia Benign essential HTN 01/12/2019 Non morbid obesity due to excess calories 2016 [place] of toe 08/01/2016 Pain in toe of right foot 08/01/2016 Deformity, toe acquired 08/01/2016 [place] of right foot 08/01/2016 Rheumatoid arthritis involvi ng left foot with positive rheumatoid factor 08/01/2016 RICHY (obstructive sleep apnea) 03/26/2016 Rheumatoid arthritis with negative rheumatoid fa ctor 03/26/2016 Rheumatoid lung 03/26/2016 Cognitive complaints 03/15/2016 Cognitive dysfunction, acquired 03/15/2016 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 10/20/2015 Memory loss 10/20/2015 RA (rheumatoid arthritis) HLD (hyperlipidemia) COPD (chronic obstructive pulmonary disease) Bipolar disorder Anxiety Anemia Resolved Problems Problem Noted Date Diagnosed Date Resolved Date COPD exacerbation 06/20/2021 06/22/2021 GIANCARLO (acute kidney injury) 06/20/2021 Severe sepsis with acute organ dysfunction 06/20/2021 06/22/2021 COVID-19 08/29/2020 08/29/2020 Ischemic stroke 08/27/2020 08/29/2020 Encounters Date Type Department Care Team Description 02/02/2025 Telephone [facility] [address] [place] [address] Haja Jones MD 01/31/2025 11:00 AM CDT Clinical Support [facility] [address] [place] [address] Fernando Hernandez Urology UTI symptoms (Primary Dx) Discharge Disposition: Discharged to home or Selfcare 01/31/2025 Travel 12/26/2024 10:59 AM CDT - 12/26/2024 3:43 PM CDT Emergency [facility] Emergency [address] [place] [address] Alexis Duffy MD COPD with acute exacerbation (HCC) Discharge Disposition: Discharged to home or Selfcare 12/26/2024 Travel 12/13/2024 11:00 AM CDT Procedure Visit [facility] [address] [place] [address] Haja Jones MD Urethral syndrome (Primary Dx); Female genital prolapse, unspecified type Discharge Disposition: Discharged to home or Selfcare 12/13/2024 Travel 11/23/2024 1:15 PM CDT Clinical Support [facility] [address] [place] [address] Fernando Hernandez Urologlauryn UTI symptoms (Primary Dx) Discharge Disposition: Discharged to home or Selfcare 11/23/2024 Travel 11/23/2024 Telephone [facility] [address] [place] [address] Haja Jones MD from Last 3 Months Immunizations Immunization Administration Dates Next Due COVID-19, Mrna, Lnp-s, Pf, 50 mcg/0.5 mL 024,03/14/2023 Covid-19, Mrna, Lnp-s, Pf, 3 0 Mcg/0.3 Ml Dose (Pfizer) 09/09/2020,08/15/2020 Covid-19, Mrna, Lnp-s, Pf, T ris-sucrose, 30 Mcg/0.3 Ml (Pfizer) 03/14/2023 Influenza Vaccine 02/15/2016,03/18/2014,03/29/20 13 Influenza Vaccine greater than 3 yrs 03/20/2016 Influenza Vaccine, Quadrivalent, PF 04/22/2017 Influenza Vaccine,unspecified Formulation 2021,04/21/2017,03/23/2010 Influenza, High-dose, Quadrivalent 03/14/2023, Influenza, Injectable, Quadrivalent 03/20/2016 Influenza, Seasonal, Injectable, Undefined 03/20,03/16/2015 Influenza, Trivalent, Adjuvanted, PF 03/15/2024 Influenza, high-dose, trivalent, PF 05/07/2019,1 Pneumococcal Vaccine - 13 Valent 07/20/2020,03/0 11/2014 Pneumococcal Vaccine Adult - 23 Valent 6,05/21/2010,12/09/2008 Pneumococcal conjugate PCV20 , polysaccharide [id number] conjugate, adjuvant, PF 03/14/2023 RSV, Bivalent, Protein Subun it Rsvpref, Diluent Reconstit (Abrysvo) 03/14/2023 TDAP Vaccine 01/18/2022,08/20/2011 Tuberculin Skin Test; Flora ed Protein Derivative Solutiol 11/27/2009 Zoster Vaccine Recombinant 10/10/2018,04/07/2018 Family History Medical History Relation Name Comments Cancer Brother lungs Lung Cancer Brother Heart Attack Father Heart Disease Father Hypertension Father Bipolar Disorder Mother Hypertension Mother Thyroid Disease Mother Relation Name Status Comments Brother Father Mother Alive Social History Tobacco Use Types Packs/Day Years Used Date Smoking Tobacco: Never Smokeless Tobacco: Never Tobacco Cessation:Counseling Given: Not Answered Alcohol Use Standard Drinks/Week Comments Yes 0 (1 standard drink = 0.6 oz pur e alcohol) rarely [employer] Util[employer] Answer Date Recorded In the past 12 months has [employer], oil, or water [employer] threatened to shut off services in your home? No 06/30/2024 Social Connection and Isolation Panel Answer Date Recorded In a typical week, how many times do you talk on the phone with family, friends, or neighbors? More than three times a week 06/30/2024 How often do you get togethe r with friends or relatives? Three times a week 06/30/2024 How often do you attend chur or quaker services? More than 4 times per year 06/30/2024 Do you belong to any clubs o r organizations such as advent groups, unions, fraternal or athletic groups, or school groups? Yes 06/30/2024 How often do you attend meet ings of the clubs or organizations you belong to? Never 06/30/2024 Are you , , di vorced, , never , or living with a partner? 06/30/2024 AUDIT-C Answer Date Recorded Q1: How often do you have a drink containing alcohol? Never 06/30/2024 Q2: How many drinks containi ng alcohol do you have on a typical day when you are drinking? Patient does not drink Q3: How often do you have si x or more drinks on one occasion? Never 06/30/2024 Overall Financial Resource Strain (CARDIA) Answe r Date Recorded How hard is it for you to pa y for the very basics like food, housing, medical care, and heating? Not hard at all 06/30/2024 PHQ-2 Answer Date Recorded Total Score - Questions 1-9 1 05/0 09/2020 [facility] - Occupational Stress Questionnaire Answer Date Recorded Do you feel stress - tense, restless, nervous, or anxious, or unable to sleep at night because your mind is troubled all the time - these days? To some extent 06/30/2024 Exercise Vital Sign Answer Date Recorde d On average, how many days pe r week do you engage in moderate to strenuous exercise (like a brisk walk)? 0 days 06/30/2024 On average, how many minutes do you engage in exercise at this level? 0 min 06/30/2024 Hunger Vital Sign Answer Date Recorded Within the past 12 months, y ou worried that your food would run out before you got the money to buy more. Never true 06/30/19 25 Within the past 12 months, t he food you bought just didn't last and you didn't have money to get more. Never true 06/30/2024 PRAPARE - Transportation Answer Date Re corded In the past 12 months, has l ack of transportation kept you from medical appointments or from getting medications? No 06/16 In the past 12 months, has l ack of transportation kept you from meetings, work, or from getting things needed for daily living? No 06/30/2024 Housing Stability Vital Sign Answer Morris e Recorded In the last 12 months, was t here a time when you were not able to pay the mortgage or rent on time? No 06/30/2024 In the past 12 months, how m any times have you moved where you were living? 0 06/30/2024 At any time in the past 12 m [facility], were you homeless or living in a skilled nursing (including now)? No 06/30/2024 Sexually Active Control Partners Comments Yes Male Comments No Sex and Gender Information Value Date Recorded Sex Assigned at Not on file Legal Sex Female 11:49 PM CDT Gender Identity Not on file Sexual Orientation Not on file Last Filed Vital Signs Vital Sign Reading Time Taken Comments Blood Pressure 130/77 12/26/2024 3:30 PM CDT Pulse 93 12/26/2024 3:30 PM CDT Temperature 36.7 C (98 F) 12/26/2024 11:06 AM CDT Respiratory Rate 17 12/26/2024 12:00 PM CDT Oxygen Saturation 96% 12/26/2024 3:30 PM CDT Inhaled Oxygen Concentration - - Weight 121.6 kg (268 lb) 12/26/2024 11:06 AM CDT Height 152.4 cm (5') 12/26/2024 11:06 AM CDT Body Mass Index 52.34 12/26/2024 11:06 AM CDT Plan of Treatment Upcoming Encounters Date Type Department Care Team (Late st Contact Info) Description 03/14/2025 11:30 AM CDT [facility] [address] [place] [address] Haja Jones MD [address] [facility], [address] [address] Health Maintenance Due Date Last Done Comments Cologuard 1997 Colonoscopy 1997 Influenza Immunization (#1) 2025 09/3 , 03/14/2023, 03/16/2022, Additional history exists SARS-COV-2 Immunization (7 - Mixed Product risk season) 2025 03/15/2024, 03/14/2023, 03/14/2023, Additional history exists Colorectal Cancer Screening 07/01/2025 Immunochemical Fecal Occult Blood 07/01/2025 07/01/2024 Mammogram 11/16/2025 11/16/2024, 10/14, 09/09/2022, Additional history exists DEXA Bone Density 11/16/2026 11/16/2024, , 07/21/2017 Td Immunization Every 10 Years (Adults With 1 Tdap) 01/19/2032 01/18/2022, 08/20/2011 Hepatitis C Virus (HCV) Screening Completed 04/22/2011 Zoster Immunization Completed 10/10/2018, 8 DTaP/Tdap/Td Immunization Discontinued 01/18/2022, 11/2011 Pneumococcal Immunization (50+ years) Completed 03/14/2023, 07/20/2020, 03/20/2016, Additional history exists Pneumococcal Immunization Combined Discontinued 03/14/2023, 07/20/2020, 03/20/2016, Additional history exists Respiratory Syncytial Virus (RSV) Immunization (Adult) Completed 03/14/2023 Hepatitis B Immunization Aged Out No longer eligible based on patient's age to complete this topic Human Papillomavirus (HPV) Immunization Aged Out No longer eligible based on patient's age to complete this topic Meningococcal Immunization (ACWY) Aged Out No longer eligible based on patient's age to complete this topic Rotavirus Immunization Aged Out No lo nger eligible based on patient's age to complete this topic Medical Devices Implanted Type Area Chaperon Device Identifier Shelf Expiration Date Model / Serial / Lot K-Wire Plain .062 - [id number] Implanted:Qty: 1 on 09/06/2016 by Srinath Rodriguez DPM at [facility] IMPLANT Right: Toe [employer] KD-062-9 / / [id number] Pacemaker Edora 8 Sanchez - [id number] Implanted:Qty: 1 on 08/31/2020 by Haja Luciano MD at [facility] IMPLANT Left: Chest [employer] 12/13/2021 [id number] / [id number] / N/A Solia T 53 Implanted:Qty: 1 on 08/31/2020 by Haja Luciano MD at [facility] Left: Chest [employer] 05/15/2022 [id number] / [id number] / N/A Solia Jt 45 Implanted:Qty: 1 on 08/31/2020 by Haja Luciano MD at [facility] Left: Chest [employer] 04/15/2022 [id number] / [id number] / N/A Procedures Procedure Name Priority Date/Time Associated Diagnosis Comments POCT UA AUTOMATED W/O MICRO Routine 01/31/2025 11:13 AM CDT UTI symptoms CULTURE, URINE Routine 01/31/2025 11:13 AM CDT UTI symptoms AEROSOL NEBULIZER-INITIAL STAT 12/26/2024 1:27 PM CDT TROPONIN I, HIGH SENSITIVITY (HSTRP) STAT 12/26/2024 12:55 PM CDT XR CHEST SINGLE VIEW PORTABLE STAT 12/26/2024 11:48 AM CDT CBC WITH AUTO DIFFERENTIAL STAT 12/26/2024 11:20 AM CDT TROPONIN I, HIGH SENSITIVITY (HSTRP) STAT 12/26/2024 11:20 AM CDT CMP (COMPREHENSIVE METABOLIC PANEL) STAT 12/26/2024 11:20 AM CDT COMPLETE BLOOD COUNT (CBC) WITH DIFF STAT 12/26/2024 11:20 AM CDT EKG 12 LEAD STAT 12/26/2024 11:03 AM CDT EKG SCAN 12/26/2024 12:00 AM CDT CULTURE, URINE Routine 12/13/2024 11:27 AM CDT Urethral syndrome Female genital prolapse, unspecified type POCT UA AUTOMATED W/O MICRO Routine 12/13/2024 10:57 AM CDT CULTURE, URINE Routine 11/23/2024 1:00 PM CDT UTI symptoms POCT UA AUTOMATED W/O MICRO Routine 11/23/2024 12:58 PM CDT UTI symptoms STOOL, OCCULT BLOOD, DIAGNOSTIC, VIA GUAIAC Routine 07/01/2024 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 POC UA SPECIFIC GRAVITY 1.020 URINE PH 5.0 5.0 - 9.0 POC URINE LEUKOCYTES Negative Negative Kaleb/uL POC URINE NITRITE Negative Negative POC URINE PROTEIN Negative Negative mg/dL POC URINE GLUCOSE Norm Negative, Norm mg/dL POC URINE KETONE Negative Negative mg/dL POC URINE UROBILINOGEN Norm Norm, 0.2 E.U./dL (mg/dL), 1 E.U./dL (mg/dL) POC URINE BILIRUBIN Negative Negative mg/dL POC URINE BLOOD INSTRUMENT Negative Negative Rogers/uL POC URINE COLOR Light Yellow POC URINE CLARITY Cloudy Urine 01/31/2025 11:1 3 AM CDT Haja Jones MD POINT OF CARE TESTING ( MANUAL) Final Result * CULTURE, URINE (01/31/2025 11:13 AM CDT) Only the most recent of3 resultswithin the time period is included. CULTURE RESULTS Mixed Growth of One or More Distal Urethral Contaminants 02/02/2025 12:05 AM CDT [facility] Culture URINE SPECIMEN OBTAINED BY CLEAN CATCH PROCEDURE / Unknown Non-Phlebotomy Collection / Unknown 01/31/2025 11:13 AM CDT 01/31/2025 11:13 AM CDT us Haja Jonse MD MICROBIOLOGY - GENERAL ORDERABLES Final Result [facility] [address] [place] [address], [place] * TROPONIN I, HIGH SENSITIVITY (HSTRP) (12/26/2024 12:55 PM CDT) Only the most recent of2 resultswithin the time period is included. TROPONIN I, HIGH SENSITIVITY- [place] 5 <=14 ng/L 12/26/2024 1:26 PM CDT [facility] Comment: High-sensitivity troponin I results are reported in ng/L making the result appear to be 1,000 times higher than the contemporary troponin I value which is reported in ng/ml. Results from [place]. Blood Venipuncture / Unknown 12/26/2024 12:55 PM CDT 12/26/2024 1:01 PM CDT us Alexis Duffy MD CHEMISTRY ORDERABLES Final Result Performing Organization Address City/[facility]/ZIP Co de Phone Number [facility] [address] [place] [address] * XR CHEST SINGLE VIEW PORTABLE (12/26/2024 11:48 AM CDT) Anatomical Region Laterality Modality Chest N/A Computed Radiogr aphy 12/26/2024 11:5 2 AM CDT Impressions 12/26/2024 11:54 AM CDT IMPRESSION: 1. Low lung volumes with mild patchy left basilar airspace opacities, which is likely related to subsegmental atelectasis/scarring and less likely developing airspace disease. 2. Cardiomegaly with mild prominence of pulmonary vasculature. Narrative 12/26/2024 11:54 AM CDT EXAM DESCRIPTION: XR CHEST SINGLE VIEW PORTABLE REASON FOR STUDY: chest pain, SOB, productive cough x few weeks, worse x last PM. pt uses 5L of O2. Hx of COPD, asthma, HTN, TIA, skin cancer, RA TECHNIQUE: Single frontal radiographic view(s) of the chest. COMPARISON: 06/30/2024 FINDINGS: There are low lung volumes. There is cardiomegaly. Left-sided cardiac device is noted. There is mild prominence of the pulmonary vasculature. There are mild patchy left basilar airspace opacities. There is no definite evidence of a pneumothorax. There is no definite evidence of pleural effusion. The osseous structures are acutely grossly stable. THIS IS AN ELECTRONICALLY VERIFIED FINAL REPORT 12/26/2024 11:52 AM - Electronically signed by Juliette Painter D.O. PS: PS Report ID: [id number] Reading Location: [id number] Procedure Note Juliette Painter DO - 12/26/2024 EXAM DESCRIPTION: XR CHEST SINGLE VIEW PORTABLE REASON FOR STUDY: chest pain, SOB, productive cough x few weeks, worse x last PM. pt uses 5L of O2. Hx of COPD, asthma, HTN, TIA, skin cancer, RA TECHNIQUE: Single frontal radiographic view(s) of the chest. COMPARISON: 06/30/2024 FINDINGS: There are low lung volumes. There is cardiomegaly. Left-sided cardiac device is noted. There is mild prominence of the pulmonary vasculature. There are mild patchy left basilar airspace opacities. There is no definite evidence of a pneumothorax. There is no definite evidence of pleural effusion. The osseous structures are acutely grossly stable. THIS IS AN ELECTRONICALLY VERIFIED FINAL REPORT 12/26/2024 11:52 AM - Electronically signed by Juliette Painter D.O. PS: PS Report ID: [id number] Reading Location: [id number] IMPRESSION: 1. Low lung volumes with mild patchy left basilar airspace opacities, which is likely related to subsegmental atelectasis/scarring and less likely developing airspace disease. 2. Cardiomegaly with mild prominence of pulmonary vasculature. Alexis Duffy MD IMG DIAGNOSTIC ORDERABLES Final Result * (ABNORMAL) CBC with Auto Differential (12/26/2024 11:20 AM CDT) WBC 12.36(H) 4.00 - 12.00 10(3)/[facility] 12/26/2024 11:53 AM CDT [facility] RBC 4.01 3.80 - 5.30 10(6)/[facility] 12/26/2024 11:53 AM CDT [facility] HEMOGLOBIN (HGB) 12.1 12.0 - 15.8 g/dL 12/26/2024 11:53 AM CDT [facility] HEMATOCRIT (HCT) 37.9 36.0 - 47.0 % 12/26/2024 11:53 AM CDT [facility] MCV 94.5 82.0 - 96.0 fL 12/26/2024 11:53 AM CDT [facility] MCH 30.2 26.0 - 34.0 pg 12/26/2024 11:53 AM CDT [facility] MCHC 31.9 31.0 - 36.0 g/dL 12/26/2024 11:53 AM CDT [facility] PLATELET COUNT 223 140 - 440 10(3)/[facility] 12/26/2024 11:53 AM CDT [facility] RDW 14.4 11.8 - 15.5 % 12/26/2024 11:53 AM CDT [facility] MPV 8.9(L) 9.7 - 12.4 fL 12/26/2024 11:53 AM CDT [facility] NEUTROPHILS 84.9(H) 47.0 - 73.0 % 12/26/2024 11:53 AM CDT [facility] LYMPHOCYTES 8.7(L) 18.0 - 42.0 % 12/26/2024 11:53 AM CDT [facility] MONOCYTES 5.0 4.0 - 12.0 % 12/26/2024 11:53 AM CDT [facility] EOSINOPHILS 0.2 0.0 - 5.0 % 12/26/2024 11:53 AM CDT [facility] BASOPHILS 0.2 0.0 - 1.0 % 12/26/2024 11:53 AM CDT [facility] IMMATURE GRANULOCYTE 1.0(H) 0.0 - 0.4 % 12/26/2024 11:53 AM CDT [facility] Comment:Immature Granulocyte s includes Metamyelocytes, Myelocytes, and Promyelocytes. ABSOLUTE NEUTROPHILS 10.50(H) 1.60 - 7.70 10(3)/[facility] 12/26/2024 11:53 AM CDT [facility] ABSOLUTE LYMPHOCYTES 1.08(L) 1.30 - 3.20 10(3)/[facility] 12/26/2024 11:53 AM CDT [facility] ABSOLUTE MONOCYTES 0.62 0.20 - 1.00 10(3)/[facility] 12/26/2024 11:53 AM CDT [facility] ABSOLUTE EOSINOPHIL 0.02 0.00 - 0.40 10(3)/[facility] 12/26/2024 11:53 AM CDT [facility] ABSOLUTE BASOPHILS 0.02 0.00 - 0.10 10(3)/[facility] 12/26/2024 11:53 AM CDT [facility] ABSOLUTE IMMATURE GRANULOCYTE 0.12(H) 0.00 - 0.03 10 (3) [facility]. 12/26/2024 11:53 AM CDT [facility] NRBC PER 100 WBC 0 12/27/19 11:53 AM T [facility] Blood Venipuncture / Unknown 12/26/2024 11:20 AM CDT 12/26/2024 11:49 AM CDT Alexis Duffy MD HEMATOLOGY ORDERABLES Lorelei l Result [facility] [address] [place] [address] * (ABNORMAL) CMP (Comprehensive Metabolic Panel) (12/26/2024 11:20 AM CDT) SODIUM 142 136 - 145 mmol/L 12/26/2024 12:13 PM CDT [facility] POTASSIUM 3.4(L) 3.5 - 5.1 mmol/L 12/26/2024 12:13 PM CDT [facility] CHLORIDE 103 98 - 107 mmol/L 12/26/2024 12:13 PM CDT [facility] CO2, VENOUS 29 22 - 30 mmol/L 12/26/2024 12:13 PM CDT [facility] ANION GAP 13.4 <18.0 mmol/L 12/26/2024 12:13 PM CDT [facility] GLUCOSE 138(H) 70 - 99 mg/dL 12/26/2024 12:13 PM CDT [facility] BUN 21(H) 10 - 20 mg/dL 12/26/2024 12:13 PM CDT [facility] CREATININE, BLOOD 0.68 0.60 - 1.00 mg/dL 12/26/2024 12:13 PM CDT [facility] BUN/CREATININE RATIO 31(H) 12 - 20 ratio 12/26/2024 12:13 PM CDT [facility] TOTAL PROTEIN 7.3 6.0 - 8.0 g/dL 12/26/2024 12:13 PM CDT [facility] ALBUMIN 4.4 3.5 - 5.0 g/dL 12/26/2024 12:13 PM CDT [facility] A/G RATIO 1.5 1.0 - 2.2 12/26/2024 12:13 PM CDT [facility] CALCIUM 9.1 8.7 - 10.5 mg/dL 12/26/2024 12:13 PM CDT [facility] T BILI 0.5 0.2 - 1.2 mg/dL 12/26/2024 12:13 PM CDT [facility] SGOT (AST) 34 <43 U/L 12/26/2024 12:13 PM CDT [facility] SGPT (ALT) 52 <56 U/L 12/26/2024 12:13 PM CDT [facility] ALKALINE PHOSPHATASE 52 40 - 150 U/L 12/26/2024 12:13 PM CDT [facility] GFR, ESTIMATED >60 >=60 12/26/2024 12:13 PM CDT [facility] Comment: Creatinine Clearance is the preferred criteria for selecting drug dose adjustments in renally impaired patients. The GFR is provided as additional pertinent clinical information. GFR is reported in mL/min/1.73 sq m. Calculation based on the Chronic Kidney Disease Epidemiology Collaboration (CKD- EPI) equation refit without adjustment for race. GFR, EST. >60 >=60 025 12:13 PM CDT [facility] GFR, EST. NONAFRICAN >60 >=60 12/26/2024 12:13 PM CDT [facility] Blood Venipuncture / Unknown 12/26/2024 11:20 AM CDT 12/26/2024 11:49 AM CDT Alexis Duffy MD CHEMISTRY ORDERABLES Final Result [facility] [address] [place] [address] * EKG 12 LEAD (12/26/2024 11:03 AM CDT) Ventricular Rate 72 BPM EXTERNAL EKG Atrial Rate 72 BPM EXTERNAL EKG P-R Interval 154 ms EXTERNAL EKG QRS Duration 88 ms EXTERNAL EKG Q-T Duration 400 ms EXTERNAL EKG QTC CALCULATION 438 ms EXTERNAL EKG P Danube 1 degrees EXTERNAL EKG R Danube -6 degrees EXTERNAL EKG T Danube 29 degrees EXTERNAL EKG 12/26/2024 11:0 3 AM CDT Impressions EXTERNAL EKG - 01/01/2025 6:34 PM CDT Normal sinus rhythm Minimal voltage criteria for LVH, may be normal variant ( R in aVL ) Borderline ECG When compared with ECG of 30-JUN-2024 06:17, No significant change was found Confirmed by Jonatan Ayala ([id number]) on 01/01/2025 6:34:13 PM Narrative Procedure Note Jonatan Ayala MD PhD - 01/01/2025 IMPRESSION: Normal sinus rhythm Minimal voltage criteria for LVH, may be normal variant ( R in aVL ) Borderline ECG When compared with ECG of 30-JUN-2024 06:17, No significant change was found Confirmed by Jonatan Ayala ([id number]) on 01/01/2025 6:34:13 PM us Alexis Duffy MD IMG ECG ORDERABLES Final R esult Performing Organization Address City/[facility]/ZIP Co de Phone Number EXTERNAL EKG * EKG SCAN (12/26/2024 12:00 AM CDT) 12/26/2024 us Provider Scan IMG ECG ORDERABLES Final Result RESULTING AGENCY * (ABNORMAL) Stool, Occult Blood, Diagnostic, via Guaiac (07/01/2024 4:03 PM SOILS ENGINEER) OCCULT BLOOD DIAG Positive(A ) Negative 07/01/2024 4:48 PM SOILS ENGINEER [facility] Stool STOOL SPECIMEN / Unknown Non-Phlebotomy Collection / Unknown 07/01/2024 4:03 PM SOILS ENGINEER 07/01/2024 4:16 PM SOILS ENGINEER Neil Long MD BODY FLUIDS & STOOLS ORD ERABLES Final Result Performing Organization Address City/[facility]/ZIP Co de Phone Number [facility] [address] [place] [address] from Last 3 Months or Most Recently Relevant to Health Maintenance Additional Health Concerns Infection Onset Date Last Indicated ESBL 11/01/2024 11/01/2024 Insurance MEDICAID [place] [facility] Advance Directives * Full Code (Latest Code Status on File) Date Activated Date Inactivated Comments 06/30/2024 3:13 AM CPR-Full Treat ment: FULL ARREST: Attempt Resuscitation/CPR wit intubation and mechanical ventilation. PRE-ARREST: Use entire range of life support measures to stabilize the patient. * Full Code Date Activated Date Inactivated Comments 06/20/2021 1:25 PM 06/23/2021 3:38 PM CPR-Full Treat ment: FULL ARREST: Attempt Resuscitation/CPR wit intubation and mechanical ventilation. PRE-ARREST: Use entire range of life support measures to stabilize the patient. * Full Code Date Activated Date Inactivated Comments 09/12/2020 7:30 AM 06/20/2021 10:32 AM * Full Code Date Activated Date Inactivated Comments 08/30/2020 11:48 PM 09/01/2020 2:17 PM CPR-Full Tr eatment: FULL ARREST: Attempt Resuscitation/CPR wit intubation and mechanical ventilation. PRE-ARREST: Use entire range of life support measures to stabilize the patient. * Full Code Date Activated Date Inactivated Comments 08/27/2020 8:17 PM 08/29/2020 3:34 PM CPR-Full Christofer atment: FULL ARREST: Attempt Resuscitation/CPR wit intubation and mechanical ventilation. PRE-ARREST: Use entire range of life support measures to stabilize the patient. Care Teams Creping Machine Operator Helper Relationship Specialty Start Date End Date Anila Patino MD [address] [facility] [place] [address] PCP - General Internal Medicine 04/15/15 Srinath Rodriguez DPM [address] [facility] [place] [address] Podiatry 08/01/16 Buster Xiong [address] [facility] [place] [address] 08/01/16 Betty Quinn III, MD #[address] [place] [address] Consulting Physician Urology 12/23/22 Haja Jones MD [address] [place] [address] Consulting Physician Urology 07/21/23
--- OUTSIDE RECORDS SUMMARY | 2025-02-14 17:50 | XMS_ITS | Encounter Summary ---
Author Organization [facility] Address [address] [place] [address] Phone Care Team Providers Care Senior Telecommunications Technician Name Role Phone Anila Patino MD Primary Care Provider [phone] Salomon Medrano MD Unavailable [phone] Rosalinda Looney MD Unavailable Barrington Yanez MD Unavailable Shaquille Blanco MD Unavailable Onesimo Magaña MD Unavailable Lit Singer MD Unavailable [phone] Johan Marti MD Unavailable Tino Still MD Unavailable Matthias Christianson MD Unavailable Matt Richardson DO Unavailable [phone] Pema Gill MD Unavailable [phone] Jus Patel MD Unavailable [phone] Haja Luciano MD Unavailable [phone] Yasmine Yanes MD Unavailable [phone] Yasmine Yanes MD Unavailable [phone] Samantha Mir RN Unavailable Unavailable Tabby Mcclendon MD Unavailable Haja Page MD PhD Unavailable + Pema Glil MD Unavailable Chandler Trejo MD Unavailable [phone] Johan Marti MD Unavailable [phone] BouchraAriadne Ricarda BRIAR WOOD SORTER Unavailable +[phone] Pema Gill MD Unavailable [phone] Hero Jackman MD Unavailable Ronal [place] MD Unavailable Kristen Perez MD Unavailable [phone] Ryan Sanders MD Unavailable Geovanna AlvarengaM Unavailable [phone] BouchraAriadne Ricarda [employer]AR [employer] SORTER Unavailable [phone] Tabby Light RN Unavailable [phone] Junior Tobin MD Unavailable Encounter Details Date Type Department Care Team (Late st Contact Info) Description 06/12/2017 Orders Only [facility] Provider, MD Anastacio [address] [place] [address] Social History Tobacco Use Types Packs/Day Years Used Date Smoking Tobacco: Never Smokeless Tobacco: Never Alcohol Use Standard Drinks/Week Comments No 0 (1 standard drink = 0.6 oz pure alcohol) occassional mixed drink for special occassions Comments No Sex and Gender Information Value Date Recorded Sex Assigned at Not on file Legal Sex Female 4:42 AM BLOOD BANK COORDINATOR Gender Identity Female 03/06/2022 7:30 PM CDT Sexual Orientation Straight 03/06/2022 7: 30 PM CDT documented as of this encounter Plan of Treatment Upcoming Encounters Date Type Department Care Team (Late st Contact Info) Description 09/07/2025 Orders Only [facility] [address] [place] [address] Scanning, Provider documented as of this encounter Procedures Procedure Name Priority Date/Time Associated Diagnosis Comments DISCHARGE LABORATORY CUMULATIVE REPORT 06/12/2017 12:00 AM BLOOD BANK COORDINATOR documented in this encounter Results * DISCHARGE LABORATORY CUMULATIVE REPORT (06/12/2017 12:00 AM BLOOD BANK COORDINATOR) Narrative 06/12/2017 12:00 AM BLOOD BANK COORDINATOR Ordered by an unspecified provider. us Historical Provider LAB BLOOD ORDERABLES Lorelei l Result documented in this encounter Visit Diagnoses Not on filedocumented in this encounter Additional Health Concerns Infection Onset Date Last Indicated Resolved Time COVID: Suspected 08/04/2020 08/04/2020 08/04/2020 2:35 PM BLOOD BANK COORDINATOR COVID: Suspected 10/05/2020 10/05/2020 10/05/2020 1:07 PM CDT COVID: Suspected 12/16/2020 12/16/2020 12/16/2020 3:40 PM CDT COVID: Suspected 03/15/2021 03/15/2021 03/15/2021 8:52 AM CDT COVID: Suspected 08/15/2021 08/15/2021 08/16/2021 3:05 AM BLOOD BANK COORDINATOR COVID: Suspected 05/20/2022 05/20/2022 05/20/2022 2:35 PM BLOOD BANK COORDINATOR COVID19 05/20/2022 05/20/2022 05/30/2022 3:05 AM BLOOD BANK COORDINATOR COVID: Recovered Comment:Added based on recent COVID infection. 05/30/2022 05/30/2022 08/28/2022 3:05 AM C DT COVID: Suspected 01/13/2023 01/14/2023 01/14/2023 3:05 AM CDT COVID: Suspected 05/02/2023 05/02/2023 05/02/2023 5:51 PM BLOOD BANK COORDINATOR COVID: Suspected 10/10/2023 10/10/2023 10/10/2023 4:01 PM CDT COVID: Suspected 12/06/2024 12/06/2024 12/06/2024 12:57 PM CDT documented as of this encounter Care Teams Senior Telecommunications Technician Relationship Specialty Start Date End Date Anila Patino MD PCP - General 09/13/16 Salomon Medrano MD [address] [facility] [address] [place] [address] Rheumatology 01/02/17 Rosalinda Looney MD [address] [facility] [address] [place] [address] Psychiatry 01/02/17 Barrington Yanez MD [address] [facility] [address] [place] [address] Pulmonary Disease 01/02/17 01/20/20 [place] [address] [address] Surgeon Orthopedic Surgery 01/02/17 01/27/22 [place] [address] [address] Otolaryngology 01/02/17 01/20/20 [place] [address] [address] Radiation Oncology 01/02/17 [place] [address] [address] Neurosurgery 01/02/17 Tino Still MD [address] [place] [address] [address] [facility] [address] [place] [address] Surgeon Orthopedic Surgery 09/19/17 [place] [address] [facility] [address] [address] Referring Physician Urology 09/19/17 01/20/20 [place] [address] [facility] [address] [place] [address] Consulting Physician Gastroenterology 12/10/19 Pema Gill MD [address] [place] [address] Fellow Pulmonary Disease 01/21/20 02/18/24 Jus Patel MD [address] [place] [address] Consulting Physician Urology 01/21/20 02/05/23 Haja Luciano MD [address] [place] [address] Consulting Physician Cardiovascular Disease 12/21/20 Yasmine Yanes MD [address] [place] [address] Consulting Physician Cardiology 07/23/21 Yasmine Yanes MD [address] [place] [address] Consulting Physician Cardiology 07/23/21 01/27/22 Samantha Mir, RN Registered Nurse Pulmonary Disease 01/10/22 02/18/24 Tabby Mcclendon MD [address] [place] [address] Oyster Culturist Obstetrics and Gynecology 01/28/22 07/30/22 Haja Page MD PhD [address] [place] [address] Consulting Physician Neurology 05/04/22 05/03/24 Pema Gill MD [address] [place] [address] Fellow Pulmonary Disease 06/21/22 07/30/22 Chandler Trejo MD [address] [place] [address] [address] [place] [address] Consulting Physician Gastroenterology 07/31/22 02/18/24 Johan Marti MD [address] [place] [address] [place] [address] Referring Physician Neurosurgery 02/06/23 05/03/24 Ariadne Shook, ROSITA [address] [place] [address] Nurse Practitioner Neurology 07/22/23 05/03/24 Pema Gill MD [address] [place] [address] Fellow Pulmonary Disease 07/22/23 07/22/23 Hero Jackman MD [address] [facility] NEUROLOGY SLEEP [facility], [facility] [address] [place] [address] Consulting Physician Sleep Medicine 07/22/23 Ronal [place] MD [address] [place] [address] Consulting Physician Pulmonary Disease 02/19/24 Kristen Perez MD [address] [place] [address] Anesthesiologist Pain Management 02/19/24 Ryan Sanders MD [address] [address] Consulting Physician Urology 05/04/22 Geovanna Alvarenga DPM [address] [place] [address] Consulting Physician Foot and Ankle Surg 05/04/24 Ariadne Shook NP [address] [place] [address] Nurse Practitioner Neurology 06/01/24 Tabby Light RN [address] [place] [address] [address] [place] [address] Profiling Machine Set Up Operator Tool 07/05/24 Junior Tobin MD [address] [place] [address] Consulting Physician Urology 07/21/24 documented as of this encounter
--- OUTSIDE RECORDS SUMMARY | 2025-02-14 17:50 | XMS_ITS | Encounter Summary ---
Author Organization [facility] Address [address] [place] [address] Phone Care Team Providers Care Network Support Manager Name Role Phone Anila Patino MD Primary Care Provider [phone] Salomon Medrano MD Unavailable [phone] Rosalinda Looney MD Unavailable [phone] Barrington Yanez MD Unavailable Shaquille Blanco MD Unavailable Onesimo Magaña MD Unavailable Lit Singer MD Unavailable Johan Marti MD Unavailable Tino Still MD Unavailable Matthias Christianson MD Unavailable Matt Richardson DO Unavailable [phone] Pema Gill MD Unavailable [phone] Jus Patel MD Unavailable Haja Luciano MD Unavailable [phone] Yasmine Yanes MD Unavailable [phone] Yasmine Yanes MD Unavailable [phone] Samantha Mir RN Unavailable Unavailable Tabby Mcclendon MD Unavailable Haja Page MD PhD Unavailable + Pema Gill MD Unavailable [phone] Chandler Trejo MD Unavailable [phone] Johan Marti MD Unavailable [phone] BouchraAriadne Ricarda LEGAL OFFICER Unavailable +[phone] Pema Gill MD Unavailable [phone] Hero Jackman MD Unavailable Ronal [place] MD Unavailable Kristen Perez MD Unavailable [phone] Ryan Sanders MD Unavailable Geovanna AlvarengaM Unavailable [phone] BouchraAriadne Ricarda LEGAL OFFICER Unavailable [phone] Tabby Light RN Unavailable [phone] Junior Tobin MD Unavailable Encounter Details Date Type Department Care Team (Late st Contact Info) Description 11/07/2017 Orders Only [facility] Provider, MD Anastacio [address] [place] [address] Social History Tobacco Use Types Packs/Day Years Used Date Smoking Tobacco: Never Smokeless Tobacco: Never Alcohol Use Standard Drinks/Week Comments No 0 (1 standard drink = 0.6 oz pure alcohol) occassional mixed drink for special occassions Comments No Sex and Gender Information Value Date Recorded Sex Assigned at Not on file Legal Sex Female 4:42 AM STRIP ROLLER Gender Identity Female 03/06/2022 7:30 PM CDT Sexual Orientation Straight 03/06/2022 7: 30 PM CDT documented as of this encounter Plan of Treatment Upcoming Encounters Date Type Department Care Team (Late st Contact Info) Description 09/07/2025 Orders Only [facility] [address] [place] [address] Scanning, Provider documented as of this encounter Procedures Procedure Name Priority Date/Time Associated Diagnosis Comments DISCHARGE LABORATORY CUMULATIVE REPORT 11/07/2017 12:00 AM CDT documented in this encounter Results * DISCHARGE LABORATORY CUMULATIVE REPORT (11/07/2017 12:00 AM CDT) Narrative 11/07/2017 12:00 AM CDT Ordered by an unspecified provider. us Historical Provider LAB BLOOD ORDERABLES Lorelei l Result documented in this encounter Visit Diagnoses Not on filedocumented in this encounter Additional Health Concerns Infection Onset Date Last Indicated Resolved Time COVID: Suspected 08/04/2020 08/04/2020 08/04/2020 2:35 PM STRIP ROLLER COVID: Suspected 10/05/2020 10/05/2020 10/05/2020 1:07 PM CDT COVID: Suspected 12/16/2020 12/16/2020 12/16/2020 3:40 PM CDT COVID: Suspected 03/15/2021 03/15/2021 03/15/2021 8:52 AM CDT COVID: Suspected 08/15/2021 08/15/2021 08/16/2021 3:05 AM STRIP ROLLER COVID: Suspected 05/20/2022 05/20/2022 05/20/2022 2:35 PM STRIP ROLLER COVID19 05/20/2022 05/20/2022 05/30/2022 3:05 AM STRIP ROLLER COVID: Recovered Comment:Added based on recent COVID infection. 05/30/2022 05/30/2022 08/28/2022 3:05 AM C DT COVID: Suspected 01/13/2023 01/14/2023 01/14/2023 3:05 AM CDT COVID: Suspected 05/02/2023 05/02/2023 05/02/2023 5:51 PM STRIP ROLLER COVID: Suspected 10/10/2023 10/10/2023 10/10/2023 4:01 PM CDT COVID: Suspected 12/06/2024 12/06/2024 12/06/2024 12:57 PM CDT documented as of this encounter Care Teams Network Support Manager Relationship Specialty Start Date End Date Anila Patino MD PCP - General 09/13/16 Salomon Medrano MD [address] [facility] [address] [place] [address] Rheumatology 01/02/17 Rosalinda Looney MD [address] [facility] [address] [place] [address] Psychiatry 01/02/17 Barrington Yanez MD [address] [facility] [address] [place] [address] Pulmonary Disease 01/02/17 01/20/20 [place] [address] [address] Surgeon Orthopedic Surgery 01/02/17 01/27/22 [place] [address] [address] Otolaryngology 01/02/17 01/20/20 [place] [address] [address] Radiation Oncology 01/02/17 [place] [address] [address] Neurosurgery 01/02/17 Tino Still MD [address] [place] [address] [address] [facility] [address] [place] [address] Surgeon Orthopedic Surgery 09/19/17 [place] [address] [facility] [address] [place] [address] Referring Physician Urology 09/19/17 01/20/20 [place] [address] [facility] [address] [place] [address] Consulting Physician Gastroenterology 12/10/19 Pema Gill MD [address] [place] [address] Fellow Pulmonary Disease 01/21/20 02/18/24 Jus Patel MD [address] [place] [address] Consulting Physician Urology 01/21/20 02/05/23 Haja Luciano MD [address] [place] [address] Consulting Physician Cardiovascular Disease 12/21/20 Yasmine Yanes MD [address] [place] [address] Consulting Physician Cardiology 07/23/21 Yasmine Yanes MD [address] [place] [address] Consulting Physician Cardiology 07/23/21 01/27/22 Samantha Mir, RN Registered Nurse Pulmonary Disease 01/10/22 02/18/24 Tabby Mcclendon MD [address] [place] [address] Senior Support Analyst Obstetrics and Gynecology 01/28/22 07/30/22 Haja Page MD PhD [address] [place] [address] Consulting Physician Neurology 05/04/22 05/03/24 Pema Gill MD [address] [place] [address] Fellow Pulmonary Disease 06/21/22 07/30/22 Chandler Trejo MD [address] [facility] [place] [address] Consulting Physician Gastroenterology 07/31/22 02/18/24 Johan Marti MD [address] [place] [address] [address] [place] [address] Referring Physician Neurosurgery 02/06/23 05/03/24 Ariadne Shook, ROSITA [address] [place] [address] Nurse Practitioner Neurology 07/22/23 05/03/24 Pema Gill MD [address] [place] [address] Fellow Pulmonary Disease 07/22/23 07/22/23 Hero Jackman MD [address] [facility] [address] [place] [address] Consulting Physician Sleep Medicine 07/22/23 Ronal [place] MD [address] [place] [address] Consulting Physician Pulmonary Disease 02/19/24 Kristen Perez MD [address] [place] [address] Anesthesiologist Pain Management 02/19/24 Ryan Sanders MD [address] [address] Consulting Physician Urology 05/04/22 Geovanna Alvarenga DPM [address] [place] [address] Consulting Physician Foot and Ankle Surg 05/04/24 Ariadne Shook NP [address] [place] [address] Nurse Practitioner Neurology 06/01/24 Tabby Light RN [address] [facility] [address] [place] [address] Duty Engineer 07/05/24 Junior Tobin MD [address] [place] [address] Consulting Physician Urology 07/21/24 documented as of this encounter
--- OUTSIDE RECORDS SUMMARY | 2025-02-14 17:50 | XMS_ITS | Encounter Summary ---
Author Organization [facility] Address [address] [place] [address] Phone Care Team Providers Care Transcription Typist Name Role Phone Anila Patino MD Primary Care Provider [phone] Salomon Medrano MD Unavailable [phone] Rosalinda Looney MD Unavailable Barrington Yanez MD Unavailable Shaquille Blanco MD Unavailable Onesimo Magaña MD Unavailable Lit Singer MD Unavailable [phone] Johan Marti MD Unavailable Tino Still MD Unavailable [phone] Matthias Christianson MD Unavailable Matt Richardson DO Unavailable [phone] Pema Gill MD Unavailable [phone] Jus Patel MD Unavailable Haja Luciano MD Unavailable +[phone] Yasmine Yanes MD Unavailable [phone] Yasmine Yanes MD Unavailable [phone] Samantha Mir RN Unavailable Unavailable Tabby Mcclendon MD Unavailable Haja Page MD PhD Unavailable + Pema Gill MD Unavailable [phone] Chandler Trejo MD Unavailable [phone] Johan Marti MD Unavailable +[phone] BouchraAriadne Ricarda SHIPS OR BARGES LOADER Unavailable +[phone] Pema Gill MD Unavailable [phone] Hero Jackman MD Unavailable Ronal Jackson MD Unavailable Kristen Perez MD Unavailable [phone] Ryan Sanders MD Unavailable Geovanna AlvarengaM Unavailable +[phone] BouchraAriadne Ricarda SHIPS OR BARGES LOADER Unavailable +[phone] Tabby Light RN Unavailable [phone] Junior Tobin MD Unavailable Encounter Details Date Type Department Care Team (Late st Contact Info) Description 06/20/2017 Orders Only [facility] Provider, MD Anastacio [address] [place] [address] Social History Tobacco Use Types Packs/Day Years Used Date Smoking Tobacco: Never Smokeless Tobacco: Never Alcohol Use Standard Drinks/Week Comments No 0 (1 standard drink = 0.6 oz pure alcohol) occassional mixed drink for special occassions Comments No Sex and Gender Information Value Date Recorded Sex Assigned at Not on file Legal Sex Female 4:42 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 Gender Identity Female 03/06/2022 7:30 PM CDT Sexual Orientation Straight 03/06/2022 7: 30 PM CDT documented as of this encounter Plan of Treatment Upcoming Encounters Date Type Department Care Team (Late st Contact Info) Description 09/07/2025 Orders Only [facility] [address] [place] [address] Scanning, Provider documented as of this encounter Procedures Procedure Name Priority Date/Time Associated Diagnosis Comments DISCHARGE LABORATORY CUMULATIVE REPORT 06/20/2017 12:00 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 documented in this encounter Results * DISCHARGE LABORATORY CUMULATIVE REPORT (06/20/2017 12:00 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) Narrative 06/20/2017 12:00 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 Ordered by an unspecified provider. us Historical Provider LAB BLOOD ORDERABLES Lorelei l Result documented in this encounter Visit Diagnoses Not on filedocumented in this encounter Additional Health Concerns Infection Onset Date Last Indicated Resolved Time COVID: Suspected 08/04/2020 08/04/2020 08/04/2020 2:35 PM MANAGER TRADE MARKETING COVID: Suspected 10/05/2020 10/05/2020 10/05/2020 1:07 PM CDT COVID: Suspected 12/16/2020 12/16/2020 12/16/2020 3:40 PM CDT COVID: Suspected 03/15/2021 03/15/2021 03/15/2021 8:52 AM CDT COVID: Suspected 08/15/2021 08/15/2021 08/16/2021 3:05 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 COVID: Suspected 05/20/2022 05/20/2022 05/20/2022 2:35 PM MANAGER TRADE MARKETING COVID19 05/20/2022 05/20/2022 05/30/2022 3:05 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 COVID: Recovered Comment:Added based on recent COVID infection. 05/30/2022 05/30/2022 08/28/2022 3:05 AM C DT COVID: Suspected 01/13/2023 01/14/2023 01/14/2023 3:05 AM CDT COVID: Suspected 05/02/2023 05/02/2023 05/02/2023 5:51 PM MANAGER TRADE MARKETING COVID: Suspected 10/10/2023 10/10/2023 10/10/2023 4:01 PM CDT COVID: Suspected 12/06/2024 12/06/2024 12/06/2024 12:57 PM CDT documented as of this encounter Care Teams Transcription Typist Relationship Specialty Start Date End Date Anila Patino MD PCP - General 09/13/16 Salomon Medrano MD [address] [facility] [address] [place] [address] Rheumatology 01/02/17 Rosalinda Looney MD [address] [facility] [address] [place] [address] Psychiatry 01/02/17 Barrington Yanez MD [address] [facility] [address] [place] [address] Pulmonary Disease 01/02/17 01/20/20 [place] [address] [address] Surgeon Orthopedic Surgery 01/02/17 01/27/22 [place] [address] [address] Otolaryngology 01/02/17 01/20/20 [place] [address] [address] Radiation Oncology 01/02/17 [place] [address] [address] Neurosurgery 01/02/17 Tino Still MD [address] [place] [address] [address] [facility] [address] [place] [address] Surgeon Orthopedic Surgery 09/19/17 [place] [address] [facility] [address] [address] Referring Physician Urology 09/19/17 01/20/20 [place] [address] [facility] [address] [place] [address] Consulting Physician Gastroenterology 12/10/19 Pema Gill MD [address] [place] [address] Fellow Pulmonary Disease 01/21/20 02/18/24 Jus Patel MD [address] [place] [address] Consulting Physician Urology 01/21/20 02/05/23 Haja Luciano MD [address] [place] [address] Consulting Physician Cardiovascular Disease 12/21/20 Yasmine Yanes MD [address] [place] [address] Consulting Physician Cardiology 07/23/21 Yasmine Yanes MD [address] [place] [address] Consulting Physician Cardiology 07/23/21 01/27/22 Samantha Mir, RN Registered Nurse Pulmonary Disease 01/10/22 02/18/24 Tabby Mcclendon MD [address] [place] [address] Instruction Librarian Obstetrics and Gynecology 01/28/22 07/30/22 Haja Page MD PhD [address] [place] [address] Consulting Physician Neurology 05/04/22 05/03/24 Pema Gill MD [address] [place] [address] Fellow Pulmonary Disease 06/21/22 07/30/22 Chandler Trejo MD [address] [place] [address] [place] [address] Consulting Physician Gastroenterology 07/31/22 02/18/24 Johan Marti MD [address] [place] [address] [place] [address] Referring Physician Neurosurgery 02/06/23 05/03/24 Ariadne Shook, ROSITA [address] [place] [address] Nurse Practitioner Neurology 07/22/23 05/03/24 Pema Gill MD [address] [place] [address] Fellow Pulmonary Disease 07/22/23 07/22/23 Hero Jackman MD [address] [facility] NEUROLOGY SLEEP [facility] [address] [place] [address] Consulting Physician Sleep Medicine 07/22/23 Ronal Jackson MD [address] [place] [address] Consulting Physician Pulmonary Disease 02/19/24 Kristen Perez MD [address] [place] [address] Anesthesiologist Pain Management 02/19/24 Ryan Sanders MD [address] [address] Consulting Physician Urology 05/04/22 Geovanna Alvarenga DPM [address] [place] [address] Consulting Physician Foot and Ankle Surg 05/04/24 Ariadne Shook NP [address] [place] [address] Nurse Practitioner Neurology 06/01/24 Tabby Light RN [address] [place] [address] [address] [place] [address] Clerical Adjudicator 07/05/24 Junior Tobin MD [address] [place] [address] Consulting Physician Urology 07/21/24 documented as of this encounter
--- OUTSIDE RECORDS SUMMARY | 2025-02-14 17:50 | XMS_ITS | Encounter Summary ---
Author Organization [facility] Address [address] [place] [address] Phone Care Team Providers Care Sign Board Erector Name Role Phone Anila Patino MD Primary Care Provider [phone] Salomon Medrano MD Unavailable [phone] Rosalinda Looney MD Unavailable Barrington Yanez MD Unavailable Shaquille Blanco MD Unavailable Onesimo Magaña MD Unavailable [phone] Lit Singer MD Unavailable Johan Marti MD Unavailable Tino Still MD Unavailable Matthias Christianson MD Unavailable Matt Richardson DO Unavailable [phone] Pema Gill MD Unavailable [phone] Jus Patel MD Unavailable [phone] Haja Luciano MD Unavailable Yasmine Yanes MD Unavailable Yasmine Yanes MD Unavailable [phone] Samantha Mir RN Unavailable Unavailable Tabby Mcclendon MD Unavailable Haja Page MD PhD Unavailable + Pema Gill MD Unavailable [phone] Chandler Trejo MD Unavailable [phone] Johan Marti MD Unavailable [phone] Ariadne Shook HEAVY EQUIPMENT OPERATOR APPRENTICE Unavailable [phone] Pema Gill MD Unavailable Hero Jackman MD Unavailable Ronal Jackson MD Unavailable Kristen Perez MD Unavailable [phone] Ryan Sanders MD Unavailable Geovanna AlvarengaM Unavailable [phone] Ariadne Shook HEAVY EQUIPMENT OPERATOR APPRENTICE Unavailable +[phone] Tabby Light RN Unavailable [phone] Junior Tobin MD Unavailable Encounter Details Date Type Department Care Team (Late st Contact Info) Description 03/25/2017 Orders Only [facility] [address] [place] [id number] Anila Patino MD [address] [place] [address] Social History Tobacco Use Types Packs/Day Years Used Date Smoking Tobacco: Never Smokeless Tobacco: Never Alcohol Use Standard Drinks/Week Comments No 0 (1 standard drink = 0.6 oz pure alcohol) occassional mixed drink for special occassions Comments No Sex and Gender Information Value Date Recorded Sex Assigned at Not on file 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 Gender Identity Female 03/06/2022 7:30 PM CDT Sexual Orientation Straight 03/06/2022 7: 30 PM CDT documented as of this encounter Plan of Treatment Upcoming Encounters Date Type Department Care Team (Late st Contact Info) Description 09/07/2025 Orders Only [facility] [address] [place] [address] Scanning, Provider documented as of this encounter Procedures Procedure Name Priority Date/Time Associated Diagnosis Comments SCAN - RADIOLOGY/IMAGING 03/25/2017 12:16 PM CDT documented in this encounter Results * SCAN - RADIOLOGY/IMAGING (03/25/2017 12:16 PM CDT) Anatomical Region Laterality Modality Other us Anila Patino MD Final Resu lt documented in this encounter Visit Diagnoses Not on filedocumented in this encounter Additional Health Concerns Infection Onset Date Last Indicated Resolved Time COVID: Suspected 08/04/2020 08/04/2020 08/04/2020 2:35 PM SALES ACCOUNT LEADER COVID: Suspected 10/05/2020 10/05/2020 10/05/2020 1:07 PM CDT COVID: Suspected 12/16/2020 12/16/2020 12/16/2020 3:40 PM CDT COVID: Suspected 03/15/2021 03/15/2021 03/15/2021 8:52 AM CDT COVID: Suspected 08/15/2021 08/15/2021 08/16/2021 3:05 AM SALES ACCOUNT LEADER COVID: Suspected 05/20/2022 05/20/2022 05/20/2022 2:35 PM SALES ACCOUNT LEADER COVID19 05/20/2022 05/20/2022 05/30/2022 3:05 AM SALES ACCOUNT LEADER COVID: Recovered Comment:Added based on recent COVID infection. 05/30/2022 05/30/2022 08/28/2022 3:05 AM C DT COVID: Suspected 01/13/2023 01/14/2023 01/14/2023 3:05 AM CDT COVID: Suspected 05/02/2023 05/02/2023 05/02/2023 5:51 PM SALES ACCOUNT LEADER COVID: Suspected 10/10/2023 10/10/2023 10/10/2023 4:01 PM CDT COVID: Suspected 12/06/2024 12/06/2024 12/06/2024 12:57 PM CDT documented as of this encounter Care Teams Sign Board Erector Relationship Specialty Start Date End Date Anila Patino MD PCP - General 09/13/16 Salomon Medrano MD [address] [facility] [address] [place] [address] Rheumatology 01/02/17 Rosalinda Looney MD [address] [facility] [address] [place] [address] Psychiatry 01/02/17 Barrington Yanez MD [address] [facility] [address] [place] [address] Pulmonary Disease 01/02/17 01/20/20 [place] [address] [address] Surgeon Orthopedic Surgery 01/02/17 01/27/22 [place] [address] [address] Otolaryngology 01/02/17 01/20/20 [place] [address] [address] Radiation Oncology 01/02/17 [place] [address] [address] Neurosurgery 01/02/17 Tino Still MD [address] [place] [address] [place] [address] Surgeon Orthopedic Surgery 09/19/17 [place] [address] [address] Referring Physician Urology 09/19/17 01/20/20 [place] [address] [address] Consulting Physician Gastroenterology 12/10/19 Pema Gill MD [address] [place] [address] Fellow Pulmonary Disease 01/21/20 02/18/24 Jus Patel MD [address] [place] [address] Consulting Physician Urology 01/21/20 02/05/23 Haja Luciano MD [address] [place] [address] Consulting Physician Cardiovascular Disease 12/21/20 Yasmine Yanes MD [address] [place] [address] Consulting Physician Cardiology 07/23/21 Yasmine Yanes MD [address] [place] [address] Consulting Physician Cardiology 07/23/21 01/27/22 Samantha Mir, RN Registered Nurse Pulmonary Disease 01/10/22 02/18/24 Tabby Mcclendon MD [address] [place] [address] Telemarketing Fundraiser Obstetrics and Gynecology 01/28/22 07/30/22 Haja Page MD PhD [address] [place] [address] Consulting Physician Neurology 05/04/22 05/03/24 Pema Gill MD [address] [place] [address] Fellow Pulmonary Disease 06/21/22 07/30/22 Chandler Trejo MD [address] [facility] [place] [address] Consulting Physician Gastroenterology 07/31/22 02/18/24 Johan Marti MD [address] [place] [address] [address] L[place] [address] Referring Physician Neurosurgery 02/06/23 05/03/24 Ariadne Shook, ROSITA [address] [place] [address] Nurse Practitioner Neurology 07/22/23 05/03/24 Pema Gill MD [address] [place] [address] Fellow Pulmonary Disease 07/22/23 07/22/23 Hero Jackman MD [address] [facility] NEUROLOGY SLEEP [facility] [address] [place] [address] Consulting Physician Sleep Medicine 07/22/23 Ronal Jackson MD [address] [place] [address] Consulting Physician Pulmonary Disease 02/19/24 Kristen Perez MD [address] [place] [address] Anesthesiologist Pain Management 02/19/24 Ryan Sanders MD [address] [address] Consulting Physician Urology 05/04/22 Geovanna Alvarenga DPM [address] [place] [address] Consulting Physician Foot and Ankle Surg 05/04/24 Ariadne Shook NP [address] [place] [address] Nurse Practitioner Neurology 06/01/24 Tabby Light RN [address] [facility] [address] [place] [address] Wood Floor Layer 07/05/24 Junior Tobin MD [address] [place] [address] Consulting Physician Urology 07/21/24 documented as of this encounter
--- OUTSIDE RECORDS SUMMARY | 2025-02-14 17:50 | XMS_ITS | Encounter Summary ---
Author Organization [facility] Address [address] [place] [address] Phone Care Team Providers Care Makeup Instructor Name Role Phone Anila Patino MD Primary Care Provider [phone] Salomon Medrano MD Unavailable [phone] Rosalinda Looney MD Unavailable Barrington Yanez MD Unavailable Shaquille Blanco MD Unavailable Onesimo Magaña MD Unavailable Lit Singer MD Unavailable [phone] Johan Marti MD Unavailable Tino Still MD Unavailable [phone] Matthias Christianson MD Unavailable Matt Richardson DO Unavailable [phone] Pema Gill MD Unavailable [phone] Jus Patel MD Unavailable [phone] Haja Luciano MD Unavailable [phone] Yasmine Yanes MD Unavailable [phone] Yasmine Yanes MD Unavailable [phone] Samantha Mir RN Unavailable Unavailable Tabby Mcclendon MD Unavailable Haja Page MD PhD Unavailable + Pema Gill MD Unavailable [phone] Chandler Trejo MD Unavailable [phone] oJhan Marti MD Unavailable +[phone] BouchraAriadne Ricarda TAPE STRINGER Unavailable +[phone] Pema Gill MD Unavailable [phone] Hero Jackman MD Unavailable Ronal Jackson MD Unavailable Kristen Perez MD Unavailable [phone] Ryan Sanders MD Unavailable Geovanna AlvarengaM Unavailable [phone] BouchraAriadne Ricarda TAPE STRINGER Unavailable [phone] Tabby Light RN Unavailable [phone] Junior Tobin MD Unavailable Encounter Details Date Type Department Care Team (Late st Contact Info) Description 09/19/2017 Orders Only [facility] Provider, MD Anastacio [address] [place] [address] Social History Tobacco Use Types Packs/Day Years Used Date Smoking Tobacco: Never Smokeless Tobacco: Never Alcohol Use Standard Drinks/Week Comments No 0 (1 standard drink = 0.6 oz pure alcohol) occassional mixed drink for special occassions Comments No Sex and Gender Information Value Date Recorded Sex Assigned at Not on file Legal Sex Female 4:42 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 MECHANIC Gender Identity Female 03/06/2022 7:30 PM CDT Sexual Orientation Straight 03/06/2022 7: 30 PM CDT documented as of this encounter Plan of Treatment Upcoming Encounters Date Type Department Care Team (Late st Contact Info) Description 09/07/2025 Orders Only [facility] [address] [place] [address] Scanning, Provider documented as of this encounter Procedures Procedure Name Priority Date/Time Associated Diagnosis Comments DISCHARGE LABORATORY CUMULATIVE REPORT 09/19/2017 12:00 AM CDT documented in this encounter Results * DISCHARGE LABORATORY CUMULATIVE REPORT (09/19/2017 12:00 AM CDT) Narrative 09/19/2017 12:00 AM CDT Ordered by an unspecified provider. us Historical Provider LAB BLOOD ORDERABLES Lorelei l Result documented in this encounter Visit Diagnoses Not on filedocumented in this encounter Additional Health Concerns Infection Onset Date Last Indicated Resolved Time COVID: Suspected 08/04/2020 08/04/2020 08/04/2020 2:35 PM MAKE READY MECHANIC COVID: Suspected 10/05/2020 10/05/2020 10/05/2020 1:07 PM CDT COVID: Suspected 12/16/2020 12/16/2020 12/16/2020 3:40 PM CDT COVID: Suspected 03/15/2021 03/15/2021 03/15/2021 8:52 AM CDT COVID: Suspected 08/15/2021 08/15/2021 08/16/2021 3:05 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 MECHANIC COVID: Suspected 05/20/2022 05/20/2022 05/20/2022 2:35 PM MAKE READY MECHANIC COVID19 05/20/2022 05/20/2022 05/30/2022 3:05 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 MECHANIC COVID: Recovered Comment:Added based on recent COVID infection. 05/30/2022 05/30/2022 08/28/2022 3:05 AM C DT COVID: Suspected 01/13/2023 01/14/2023 01/14/2023 3:05 AM CDT COVID: Suspected 05/02/2023 05/02/2023 05/02/2023 5:51 PM MAKE READY MECHANIC COVID: Suspected 10/10/2023 10/10/2023 10/10/2023 4:01 PM CDT COVID: Suspected 12/06/2024 12/06/2024 12/06/2024 12:57 PM CDT documented as of this encounter Care Teams Makeup Instructor Relationship Specialty Start Date End Date Anila Patino MD PCP - General 09/13/16 Salomon Medrano MD [address] [facility] [facility] [address] [place] [address] Rheumatology 01/02/17 Rosalinda Looney MD [address] [facility] [address] [place] [address] Psychiatry 01/02/17 Barrington Yanez MD [address] [facility] [address] [place] [address] Pulmonary Disease 01/02/17 01/20/20 [place] [address] [address] Surgeon Orthopedic Surgery 01/02/17 01/27/22 [place] [address] [address] Otolaryngology 01/02/17 01/20/20 [place] [address] [address] Radiation Oncology 01/02/17 [place] [address] [address] Neurosurgery 01/02/17 Tino Still MD [address] [place] [address] [address] [facility] [address] [place] [address] Surgeon Orthopedic Surgery 09/19/17 [place] [address] [facility] [address] [place] [address] Referring Physician Urology 09/19/17 01/20/20 [place] [address] [facility] [address] [place] [address] Consulting Physician Gastroenterology 12/10/19 Pema Gill MD [address] [place] [address] Fellow Pulmonary Disease 01/21/20 02/18/24 Jus Patel MD [address] [place] [address] Consulting Physician Urology 01/21/20 02/05/23 Haja Luciano MD [address] [place] [address] Consulting Physician Cardiovascular Disease 12/21/20 Yasmine Yanes MD [address] [place] [address] Consulting Physician Cardiology 07/23/21 Yasmine Yanes MD [address] [place] [address] Consulting Physician Cardiology 07/23/21 01/27/22 Samantha Mir, RN Registered Nurse Pulmonary Disease 01/10/22 02/18/24 Tabby Mcclendon MD [address] [place] [address] Unit Leader Obstetrics and Gynecology 01/28/22 07/30/22 Haja Page MD PhD [address] [place] [address] Consulting Physician Neurology 05/04/22 05/03/24 Pema Gill MD [address] [place] [address] Fellow Pulmonary Disease 06/21/22 07/30/22 Chandler Trejo MD [address] [facility] [place] [address] Consulting Physician Gastroenterology 07/31/22 02/18/24 Johan Marti MD [address] [place] [address] [address] [place] [address] Referring Physician Neurosurgery 02/06/23 05/03/24 Ariadne Shook, ROSITA [address] [place] [address] Nurse Practitioner Neurology 07/22/23 05/03/24 Pema Gill MD [address] [place] [address] Fellow Pulmonary Disease 07/22/23 07/22/23 Hero Jackman MD [address] [facility] NEUROLOGY SLEEP [facility] [address] [place] [address] Consulting Physician Sleep Medicine 07/22/23 Ronal Jackson MD [address] [place] [address] Consulting Physician Pulmonary Disease 02/19/24 Kristen Perez MD [address] [place] [address] Anesthesiologist Pain Management 02/19/24 Ryan Sanders MD [address] [address] Consulting Physician Urology 05/04/22 Geovanna Alvarenga DPM [address] [place] [address] Consulting Physician Foot and Ankle Surg 05/04/24 Ariadne Shook NP [address] [place] [address] Nurse Practitioner Neurology 06/01/24 Tabyb Light RN [address] [facility] [address] [place] [address] Buyer Grain 07/05/24 Junior Tobin MD [address] [place] [address] Consulting Physician Urology 07/21/24 documented as of this encounter
--- OUTSIDE RECORDS SUMMARY | 2025-02-14 17:50 | XMS_ITS | Encounter Summary ---
Author Organization [facility] Health Address [address] [place] [address] Care Team Providers Care Reimbursement Coordinator Name Role Phone Salomon Medrano MD Unavailable Unavailable Chandler Trejo MD Unavailable Cinthya Patino MD Primary Care Provider [phone]- [phone] Encounter Details Date Type Department Care Team (Late st Contact Info) Description 05/04/2014 SS Outpatient Visit EXTERNAL NON-[facility] DEPT Salomon Medrano MD Social History Tobacco Use Types Packs/Day Years Used Date Smoking Tobacco: Never Smokeless Tobacco: Never Alcohol Use Standard Drinks/Week Comments Yes 0 (1 standard drink = 0.6 oz pur e alcohol) occ Comments No Sex and Gender Information Value Date Recorded Sex Assigned at Not on file Legal Sex Female 4:21 AM MARKETING 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 LIAISON Gender Identity Not on file Sexual Orientation Not on file 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
--- OUTSIDE RECORDS SUMMARY | 2025-02-14 17:50 | XMS_ITS | Clinical Summary ---
Author Organization [facility] Address [address] [place] [address] Care Team Providers Care Electric Tape Slitter Name Role Phone Salomon Medrano MD Unavailable Unavailable Chandler Trejo MD Unavailable Cinthya Patino MD Primary Care Provider [phone] Source Comments [facility],non-owned Affiliates and Associated Physician Practices is amultiple site organization consisting of ambulatory clinics and hospital sitesin [place], [place], [place] and [place]. This disclosure is being madepursuant to the Care Everywhere program and may not contain all information available regarding this patient. Last updated 18.[facility] Allergies Active Allergy Reactions Criticality Noted Date Comments Methotrexate Hepatic Injury 06/07/2013 Penicillins 08/17/2008 Sulfa Drugs 08/17/2008 Medications * Be aware that medications may not be up to date on this document. Alwaysverify current medications with the patient. CALCIUM PO Take by mouth daily. Active AMBIEN CR PO Take by mouth as needed Active LEXAPRO 20 MG TABS Take 20 mg by mouth daily. Active pramipexole (MIRAPEX) 1.5 MG tablet Take 1.5 mg by mouth at bedtime. Active lisinopril-hydro chlorothiazide (PRINZIDE; ZESTORETIC) 10-12.5 MG tablet Take 1 Tab by mouth once daily. Active predniSONE (DELTASONE) 5 MG tabletIndication s:Rheumatoid arthritis(714.0) ([facility]) Take 1 Tab by mouth once daily. 30 Tab 12 10/06/19 14 Active acetaminophen (TYLENOL) 500 MG tabletIndication s:Rheumatoid arthritis(714.0) ([facility]) Take 2 Tabs by mouth 3 times daily. Maximum allowable Acetaminophen amount = 4 Grams (4000 mg) / 24 hours. 11/30/19 14 Active nitrofurantoin macrocrystal (MACRODANTIN) 50 MG capsule Take 50 mg by mouth 4 times daily with meals. Active ciprofloxacin (CIPRO) 500 MG tablet Take 500 mg by mouth 2 times daily. Active busPIRone (BUSPAR) 10 MG tablet Take 10 mg by mouth 2 times daily. Active estradiol (ESTRADIOL) 0.0375 MG/24HR PTWK Apply to skin. Activ e rosuvastatin (CRESTOR) 10 MG tablet Take 10 mg by mouth once daily. Active aspirin (ASPIRIN) 81 MG tablet Take 81 mg by mouth once daily. 4 daily Active azaTHIOprine (IMURAN) 50 MG tabletIndication s:Rheumatoid arthritis(714.0) ([facility]) Take 3 Tabs by mouth once daily. 90 Tab 12 04/04/20 14 Active traMADol (ULTRAM) 50 MG tabletIndication s:Rheumatoid arthritis(714.0) ([facility]) Take 1-2 Tabs by mouth 3 times daily as needed for Pain. WITH OVER THE COUNTER TYLENOL FOR PAIN 180 Tab 3 04/04/20 14 Active adalimumab (HUMIRA) 40 MG/0.8ML injectionIndicat ions:Rheumatoid arthritis(714.0) ([facility]) Inject 0.8 mL subcutaneously every 14 days. 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 02/26/2010 on Orencia & MTX 25mg sq weekly for 5weeks Rapid3=13 04/23/2010 Orencia and MTX R3=14 07/24/2010 poor response to Orencia slow improvement but did poorly at the get go after coming off Remicade R3= 9 Rituxan may be better will try 09/07/10 Rituxan standard dosing 05/13/2011 R3=6.5 on rituxan and MTX S/p right TKR lost effect at the end of the dosing regimen 05/12/2012 R3=12.5 Prior to starting Xeljanz LFT normal MTX and Actemra Stopped soon after starting Actemra due to Low platelets 02/16/2013 R3=11 LFT elevation On Xeljanz Will stop MTX and Xeljabnz Likely start MTX with Humira soon. 09/13/2013 R3=11 LFT elevation stable Platelets normal on Azathioprine and Humira. 04/04/2014 still on Imuran and Humira with prednisone 5 mg will try to wean prednisone (had a CVA recently now neurologically intact Resolved Problems Problem Noted Date Diagnosed Date Resolved Date DJD (degenerative joint disease) of knee 08/17/2008 01/13/2012 Overview (02/04/2011): 10/22/2010 recurrent knee effusions. 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 Not on file Not on file Last Filed Vital Signs Vital Sign Reading Time Taken Comments Blood Pressure 126/84 08/05/2016 4:03 PM IC DESIGNER GATE ARRAYS Pulse 90 08/05/2016 4:03 PM IC DESIGNER GATE ARRAYS Temperature 36.8 C (98.3 F) 08/05/2016 4:03 PM IC DESIGNER GATE ARRAYS Respiratory Rate 20 08/05/2016 4:03 PM IC DESIGNER GATE ARRAYS Oxygen Saturation 95% 08/05/2016 4:03 PM IC DESIGNER GATE ARRAYS Inhaled Oxygen Concentration - - Weight 75.8 kg (167 lb) 08/05/2016 4:03 PM IC DESIGNER GATE ARRAYS Height 151.1 cm (4' 11.5) 08/05/2016 4:03 PM CS T Body Mass Index 33.17 08/05/2016 4:03 PM IC DESIGNER GATE ARRAYS Plan of Treatment Health Maintenance Due Date Last Done Comments COLOGUARD (AGES 45-75) - COLON CA SCREENING [address] COLONOGRAPHY - COLON CA SCREENING 1950 FIT - COLON CA SCREENING 1950 FLEX SIG - COLON CA SCREENING 1950 DTAP/TDAP/TD VACCINES (1 - Tdap) 1971 ZOSTER VACCINE (1 of 2) 1971 PNEUMOCOCCAL VACCINE 50+ (2 of 2 - PCV) 05/21/2011 05/21/2010 Respiratory Syncytial Virus (RSV) Vaccine Pt: or over 60 yrs (1 - Risk 60-74 years 1-dose series) 2012 COLONOSCOPY - COLON CA SCREENING 06/16/2019 06/16/2009 Colorectal Cancer Screening 06/16/2019 DEPRESSION SCREENING 06/16/2024 MEDICARE AWV CALENDAR YEAR 2024 COVID-19 VACCINE ( season) 2025 01/18/2022, 05/05/2021, 09/09/2020, Additional history exists INFLUENZA VACCINE (#1) 2025 , 03/16/2022, 05/07/2019, Additional history exists MAMMOGRAM 11/16/2026 11/16/2024, 11/16/2024 HEPATITIS C SCREENING Completed 04/22/2011 BONE DENSITY TESTING Completed 11/16/2024 HEPATITIS B VACCINE Aged Out No longe r eligible based on patient's age to complete this topic HIB VACCINE Aged Out No longer eligi ble based on patient's age to complete this topic HPV VACCINE Aged Out No longer eligi ble based on patient's age to complete this topic MENINGOCOCCAL (Group B) VACCINE SHARED DECISION-MAKING Aged Out No longer eligible based on patient's age to complete this topic MENINGOCOCCAL GROUPS A/C/Y/W VACCINE Aged Out No longer eligible based on patient's age to complete this topic Procedures Procedure Name Priority Date/Time Associated Diagnosis Comments HEPATITIS C ANTIBODY Routine 04/22/2011 2:21 PM IC DESIGNER GATE ARRAYS High risk medications (not anticoagulants) long-term use Rheumatoid arthritis from Last 3 Months or Most Recently Relevant to Health Maintenance Results * HEPATITIS C ANTIBODY (04/22/2011 2:21 PM IC DESIGNER GATE ARRAYS) Hepatitis C Virus Antibody <0.1 0.0 - 0.9 s/co ratio [facility] ACCOUNT BILL Comment: Negative: < 0.8 Indeterminate 0.8 - 0.9 Positive: > 0.9 . In order to reduce the incidence of a false positive result, the CDC recommends that all s/co ratios between 1.0 and 10.9 be confirmed with additional RIBA or PCR testing. Blood specimen (specimen) BLOOD SPECIMEN / Unknown 04/22/2011 2:21 PM IC DESIGNER GATE ARRAYS 04/22/2011 9:24 PM IC DESIGNER GATE ARRAYS Narrative Resulting Agency Comment [facility] [address] [id number] [place] Salomon Medrano MD LAB - CHEMISTRY ORDERABLES Lorelei l Result [facility] ACCOUNT BILL [id number] [place] [address] from Last 3 Months or Most Recently Relevant to Health Maintenance Insurance [facility] MANAGED MEDICARE ADV [place] [id number] MANAGED MEDICARE ADV Care Teams Electric Tape Slitter Relationship Specialty Start Date End Date Cinthya Patino MD [address] [place] [address] PCP - General Internal Medicine 11/29/13 Salomon Medrano MD Rheumatology 04/01/11 Chandler Trejo MD Gastroenterology 11/29/13
--- OUTSIDE RECORDS SUMMARY | 2025-02-14 17:50 | XMS_ITS | Encounter Summary ---
Author Organization [facility] Address [address] [place] [address] Phone Care Team Providers Care Rafter Cutting Machine Operator Name Role Phone Anila Patino MD Primary Care Provider [phone] Srinath Rodriguez DPM Unavailable [phone] Buster Xiong Unavailable Unavailable Kai LOUISE MD, Courtney Unavailable [phone] Haja Jones MD Unavailable [phone] Encounter Details Date Type Department Care Team (Latest Contact Info) Description 07/27/2024 Lab Requisition [facility] [address] [place] [id number] Haja Jones MD [address] [address] Urinary tract infection, site not specified; Other abnormal findings on microbiological examination of urine Social History Tobacco Use Types Packs/Day Years Used Date Smoking Tobacco: Never Smokeless Tobacco: Never Alcohol Use Standard Drinks/Week Comments Yes 0 (1 standard drink = 0.6 oz pur e alcohol) rarely [facility] Utilities Answer Date Recorded In the past 12 months has th e [employer], gas, oil, or water [employer] threatened to shut off services in your [...] any clubs o r organizations such as confucianist groups, unions, fraternal or athletic groups, or [...] Score - Questions 1-9 1 05/0 09/2020 [facility] - Occupational Stress Questionnaire Answer Date Recorded [...] any time in the past 12 m [facility], were you homeless or living in a custodial (including now)? No 06/30/2024 Sexually Active Control [...] Description 03/14/2025 11:30 AM CDT Office Visit [facility] [address] [place] [address] Haja Jones MD #[address] [facility], [address] [address] documented as of this encounter Procedures Procedure Name Priority Date/Time Associated Diagnosis Comments URINALYSIS (UA) MICROSCOPIC ONLY Routine 07/27/2024 10:30 AM SUPERINTENDENT PIER Urinary tract infection, site not specified Other abnormal findings on microbiological examination of urine CULTURE, URINE Routine 07/27/2024 10:30 AM SUPERINTENDENT PIER Urinary tract infection, site not specified Other abnormal findings on microbiological examination of urine documented in this encounter Results * CULTURE, URINE (07/27/2024 10:30 AM SUPERINTENDENT PIER) CULTURE RESULTS Mixed Growth of One or More Distal Urethral Contaminants 07/29/2024 12:00 AM SUPERINTENDENT PIER [facility] Culture (Clean Catch) No Phlebotomy Charged / Unknown 07/27/2024 10:30 AM SUPERINTENDENT PIER 07/27/2024 11:19 AM SUPERINTENDENT PIER us Haja Jones MD MICROBIOLOGY - GENERAL ORDERABLES Final Result [facility] [address] [place] [address], * (ABNORMAL) URINALYSIS (UA) MICROSCOPIC ONLY (07/27/2024 10:30 AM SUPERINTENDENT PIER) WBC (Urine) 0-5 Negative, 0-5 /hpf 07/27/2024 12:09 PM SUPERINTENDENT PIER [facility] URINE RBC'S 0-2 Negative, 0-2 /hpf 07/27/2024 12:09 PM SUPERINTENDENT PIER [facility] EPITHELIAL CELLS Small amount /lpf 07/27/2024 12:09 PM SUPERINTENDENT PIER [facility] BACTERIA, URINE Few(A) Negative /hpf 07/27/2024 12:09 PM SUPERINTENDENT PIER [facility] Urine Non-Phlebotomy Collection / Unknown 07/27/2024 10:30 AM SUPERINTENDENT PIER 07/27/2024 11:19 AM SUPERINTENDENT PIER us Haja Jones MD URINE ORDERABLES Final Result [facility] [place] [address] documented in this encounter Visit Diagnoses Diagnosis Urinary tract infection, site not specified Other abnormal findings on microbiological examination of urine documented in this encounter Additional Health Concerns Infection Onset Date Last Indicated Resolved Time ESBL 11/01/2024 11/01/2024 Assessment Noted Time PHQ-9 Depression Total Score: 1 10/18/19 21 10:30 AM CDT documented as of this encounter Care Teams Rafter Cutting Machine Operator Relationship Specialty Start Date End Date Anila Patino MD [address] [place] [address] PCP - General Internal Medicine 04/15/15 Srinath Rodriguez DPM [address] [place] [address] Podiatry 08/01/16 Buster Xiong [address] [facility] [facility] [place] [address] 08/01/16 Betty Quinn III, MD #[address] [place] [address] Consulting Physician Urology 12/23/22 Haja Jones MD [address] [place] [address] Consulting Physician Urology 07/21/23 documented as of this encounter
--- OUTSIDE RECORDS SUMMARY | 2025-02-14 17:50 | XMS_ITS | Encounter Summary ---
Author Organization [facility] Address [address] [place] [address] Phone Care Team Providers Care Crime Laboratory Analyst Name Role Phone Anila Patino MD Primary Care Provider [phone] Salomon Medrano MD Unavailable [phone] Rosalinda Looney MD Unavailable Barrington Yanez MD Unavailable Shaquille Blanco MD Unavailable Onesimo Magaña MD Unavailable Lit Singer MD Unavailable Johan Marti MD Unavailable Tino Still MD Unavailable [phone] Matthias Christianson MD Unavailable Matt Richardson DO Unavailable [phone] Pema Gill MD Unavailable [phone] Jus Patel MD Unavailable Haja Luciano MD Unavailable Yasmine Yanes MD Unavailable [phone] Yasmine Yanes MD Unavailable [phone] Samantha Mir RN Unavailable Unavailable Tabby Mcclendon MD Unavailable Haja Page MD PhD Unavailable + Pema Gill MD Unavailable [phone] Chandler Trejo MD Unavailable [phone] Johan Marti MD Unavailable [phone] Ariadne Shook ENVELOPE SEALER OPERATOR Unavailable Pema Gill MD Unavailable [phone] Hero Jackman MD Unavailable Ronal Jackson MD Unavailable Kristen Perez MD Unavailable [phone] Ryan Sanders MD Unavailable Geovanna AlvarengaM Unavailable [phone] Ariadne Shook ENVELOPE SEALER OPERATOR Unavailable [phone] Tabby Light RN Unavailable Junior Tobin MD Unavailable Encounter Details Date Type Department Care Team (Late st Contact Info) Description 04/28/2017 Orders Only [facility] [address] [place] [id number] Anila Patino MD [address] [place] [address] Spondylolysis of sacral region (Primary Dx) Social History Tobacco Use Types Packs/Day Years Used Date Smoking Tobacco: Never Smokeless Tobacco: Never Alcohol Use Standard Drinks/Week Comments No 0 (1 standard drink = 0.6 oz pure alcohol) occassional mixed drink for special occassions Comments No Sex and Gender Information Value Date Recorded Sex Assigned at Not on file Legal Sex Female 4:42 AM PEST LOCATOR Gender Identity Female 03/06/2022 7:30 PM CDT Sexual Orientation Straight 03/06/2022 7: 30 PM CDT documented as of this encounter Plan of Treatment Upcoming Encounters Date Type Department Care Team (Late st Contact Info) Description 09/07/2025 Orders Only [facility] [address] [place] [address] Scanning, Provider documented as of this encounter Visit Diagnoses Diagnosis Spondylolysis of sacral region- Primary documented in this encounter Additional Health Concerns Infection Onset Date Last Indicated Resolved Time COVID: Suspected 08/04/2020 08/04/2020 08/04/2020 2:35 PM PEST LOCATOR COVID: Suspected 10/05/2020 10/05/2020 10/05/2020 1:07 PM CDT COVID: Suspected 12/16/2020 12/16/2020 12/16/2020 3:40 PM CDT COVID: Suspected 03/15/2021 03/15/2021 03/15/2021 8:52 AM CDT COVID: Suspected 08/15/2021 08/15/2021 08/16/2021 3:05 AM PEST LOCATOR COVID: Suspected 05/20/2022 05/20/2022 05/20/2022 2:35 PM PEST LOCATOR COVID19 05/20/2022 05/20/2022 05/30/2022 3:05 AM PEST LOCATOR COVID: Recovered Comment:Added based on recent COVID infection. 05/30/2022 05/30/2022 08/28/2022 3:05 AM C DT COVID: Suspected 01/13/2023 01/14/2023 01/14/2023 3:05 AM CDT COVID: Suspected 05/02/2023 05/02/2023 05/02/2023 5:51 PM PEST LOCATOR COVID: Suspected 10/10/2023 10/10/2023 10/10/2023 4:01 PM CDT COVID: Suspected 12/06/2024 12/06/2024 12/06/2024 12:57 PM CDT documented as of this encounter Care Teams Crime Laboratory Analyst Relationship Specialty Start Date End Date Anila Patino MD PCP - General 09/13/16 Salomon Medrano MD [address] [facility] [address] [place] [address] Rheumatology 01/02/17 Rosalinda Looney MD [address] [facility] [address] [place] [address] Psychiatry 01/02/17 Barrington Yanez MD [address] [facility] [address] [place] [address] Pulmonary Disease 01/02/17 01/20/20 [place] [address] [address] Surgeon Orthopedic Surgery 01/02/17 01/27/22 [place] [address] [address] Otolaryngology 01/02/17 01/20/20 [place] [address] [address] Radiation Oncology 01/02/17 [place] [address] [address] Neurosurgery 01/02/17 Tino Still MD [address] [place] [address] [address]RI[address] [facility] [address] [place] [address] Surgeon Orthopedic Surgery 09/19/17 [place] [address] [facility] [address] [place] [address] Referring Physician Urology 09/19/17 01/20/20 [place] [address] [facility] [address] [place] [address] Consulting Physician Gastroenterology 12/10/19 Pema Gill MD [address] [place] [address] Fellow Pulmonary Disease 01/21/20 02/18/24 Jus Patel MD [address] [place] [address] Consulting Physician Urology 01/21/20 02/05/23 Haja Luciano MD [address] [place] [address] Consulting Physician Cardiovascular Disease 12/21/20 Yasmine Yanes MD [address] [place] [address] Consulting Physician Cardiology 07/23/21 Yasmine Yanes MD [address] [place] [address] Consulting Physician Cardiology 07/23/21 01/27/22 Samantha Mir RN Registered Nurse Pulmonary Disease 01/10/22 02/18/24 Tabby Mcclendon MD [address] [address] Curtain Stitcher Obstetrics and Gynecology 01/28/22 07/30/22 Haja Page MD PhD [address] [place] [address] Consulting Physician Neurology 05/04/22 05/03/24 Pema Gill MD [address] [place] [address] Fellow Pulmonary Disease 06/21/22 07/30/22 Chandler Trejo MD [address] [facility] [place] [address] Consulting Physician Gastroenterology 07/31/22 02/18/24 Johan Marti MD [address] [place] [address] [place] [address] Referring Physician Neurosurgery 02/06/23 05/03/24 Ariadne Shook, ENVELOPE SEALER OPERATOR [address] [place] [address] Nurse Practitioner Neurology 07/22/23 05/03/24 Pema Gill MD [address] [place] [address] Fellow Pulmonary Disease 07/22/23 07/22/23 Hero Jackman MD [address] [facility] NEUROLOGY SLEEP [facility] [address] [place] [address] Consulting Physician Sleep Medicine 07/22/23 Ronal Jackson MD [address] [place] [address] Consulting Physician Pulmonary Disease 02/19/24 Kristen Perez MD [address] [place] [address] Anesthesiologist Pain Management 02/19/24 Ryan Sanders MD [address] [address] Consulting Physician Urology 05/04/22 Geovanna Alvarenga DPM [address] [place] [address] Consulting Physician Foot and Ankle Surg 05/04/24 Ariadne Shook NP [address] [place] [address] Nurse Practitioner Neurology 06/01/24 Tabby Light, CARINA [address] [place] [address] [address] [place] [address] Drill Hand 07/05/24 Junior Tobin MD [address] [place] [address] Consulting Physician Urology 07/21/24 documented as of this encounter
--- OUTSIDE RECORDS SUMMARY | 2025-02-14 17:50 | XMS_ITS | Encounter Summary ---
Author Organization [facility] Healthcare Address [address] [place] [address] Care Team Providers Care Oracle Fusion Middleware Developer Name Role Phone Anila Patino MD Primary Care Provider [phone] Salomon Medrano MD Unavailable [phone] Rosalinda Looney MD Unavailable [phone] Lit Singer MD Unavailable [phone] Johan Marti MD Unavailable [phone] Tino Still MD Unavailable [phone] Matt Richardson DO Unavailable [phone] Pema Gill MD Unavailable [phone] Yasmine Yanes MD Unavailable [phone] Samantha Mir RN Unavailable Unavailable Haja Page MD PhD Unavailable + Chandler Trejo MD Unavailable [phone] Johan Marti MD Unavailable [phone] Ariadne Shook NP Unavailable Hero Jackman MD Unavailable Ronal Jackson MD Unavailable Kristen Perez MD Unavailable Ryan Sanders MD Unavailable Geovanna AlvarengaM Unavailable [phone] BouchraAriadne ROSITA Unavailable [phone] Tabby Light RN Unavailable [phone] Junior Tobin MD Unavailable Encounter Details Date Type Department Care Team (Late st Contact Info) Description 02/11/2024 Orders Only [facility] Medical Group [facility] [address] [place] [address] Scanning, Provider Social History Tobacco [...] often do you attend chur ch or baptism services? More than 4 times per year 07/07/2020 Do you belong to any clubs o r organizations such as jehovah's witness groups, unions, fraternal or athletic groups, or school groups? No 07/07/2020 How often do you attend meet ings of the clubs or organizations you belong to? Never 07/07/2020 Marital Status Not on file 07/07/2020 AUDIT-C Answer Date Recorded Q1: How often do you have a drink containing alcohol? Never 01/29/2024 Q2: How many drinks containi ng alcohol do you have on a typical day when you are drinking? Patient does not drink Q3: How often do you have si x or more drinks on one occasion? Never 01/29/2024 Overall Financial Resource Strain (CARDIA) Answe r Date Recorded How hard is it for you to pa y for the very basics like food, housing, medical care, and heating? Not hard at all 07/07/2020 PHQ-2 Answer Date Recorded PHQ-2 Total Score (If total score is 3 or more points, staff should administer the PHQ-9) 1 07/31/2022 Hunger Vital Sign Answer Date Recorded Within [...] things needed for daily living? No 07/07/2020 Personal Safety Answer Date Recorded Getting School Help Needed Denies 05/26 Comments No Sex and Gender Information Value Date Recorded Sex Assigned at Not on file Legal Sex Female 4:42 AM [employer] Gender Identity Female 03/06/2022 7:30 PM CDT Sexual Orientation Straight 03/06/2022 7: 30 PM CDT Occupation Industry Job Start Date Job End Date disabled Not on file Not on file Not on file documented as of this encounter Plan of Treatment Upcoming Encounters Date Type Department Care Team (Late st Contact Info) Description 09/07/2025 Orders Only [facility] [address] [place] [address] Scanning, Provider documented as of this encounter Goals Goal Patient Goal Type Associated Problems Recent Progress Patient-Stated? Author CCM Chronic Pain Care Plan Chronic Care Management No Alanna Fletcher, RN Note: Problem: Chronic Pain Goals: 1. Minimize further functional decline 2. Maximize quality of life 3. Control pain Strategies: - Activity/exercise program recommendation - Conservative stepwise pain medicine strategy with multi-disciplinary approach - Recommend healthy lifestyle strategies and compensatory methods as needed Reduce the likelihood of falling Lifestyle On track(2024 3:50 PM CDT) Alanna Linn, RN Note: Below are four things you [...] on stairs Contact your local community or [facility] hospital for information on exercise, fall prevention programs, or options for improving home safety. documented as of this encounter Procedures Procedure Name Priority Date/Time Associated Diagnosis Comments SCAN - RADIOLOGY/IMAGING 02/11/2024 documented in this encounter Results * SCAN - RADIOLOGY/IMAGING (02/11/2024) Anatomical Region Laterality Modality Other us Provider Scanning Final Result documented in this encounter Visit Diagnoses Not on filedocumented in this encounter Additional Health Concerns Infection Onset Date Last Indicated Resolved Time COVID: Suspected 12/06/2024 12/06/2024 12/06/2024 12:57 PM CDT documented as of this encounter Care Teams [employer] Middleware Developer Relationship Specialty Start Date End Date Anila Patino MD PCP - General 09/13/16 Salomon Medrano MD [address] [address] Rheumatology 01/02/17 Rosalinda Looney MD [address] [address] Psychiatry 01/02/17 Lit Singer MD [address] [address] Radiation Oncology 01/02/17 Johan Marti MD [address] [address] Neurosurgery 01/02/17 Tino Still MD [address] [place] [address] [address] [facility] [address] [place] [address] Surgeon Orthopedic Surgery 09/19/17 Matt Richardson DO [address] [place] [address] [address] [facility] [address] [place] [address] Consulting Physician Gastroenterology 12/10/19 Pema Gill MD [address] [place] [address] Fellow Pulmonary Disease 01/21/20 02/18/24 Yasmine Yanes MD [address] [place] [address] Consulting Physician Cardiology 07/23/21 Samantha Mir, RN Registered Nurse Pulmonary Disease 01/10/22 02/18/24 Haja Page MD PhD Consulting Physician Neurology 05/04/22 05/03/24 Chandler Trejo MD [address] [place] [address] [address] [place] [address] Consulting Physician Gastroenterology 07/31/22 02/18/24 Johan Marti MD [address] [place] [address] [address] [place] [address] Referring Physician Neurosurgery 02/06/23 05/03/24 Ariadne Shook, ROSITA [address] [place] [address] Nurse Practitioner Neurology 07/22/23 05/03/24 Hero Jackman MD [address] [facility] NEUROLOGY [facility]EP [facility] [address] [place] [address] Consulting Physician Sleep Medicine 07/22/23 Ronal Jackson MD [address] [place] [address] Consulting Physician Pulmonary Disease 02/19/24 Kristen Perez MD [address] [place] [address] Anesthesiologist Pain Management 02/19/24 Ryan Sanders MD [address] [id number] Consulting Physician Urology 05/04/22 Geovanna Alvarenga DPM [address] [place] [address] Consulting Physician Foot and Ankle Surg 05/04/24 Ariadne Shook NP [address] [place] [address] Nurse Practitioner Neurology 06/01/24 Tabby Light RN [address] [place] [address] [address] [place] [address] Database Operator 07/05/24 Junior Tobin MD [address] [place] [id number] Consulting Physician Urology 07/21/24 documented as of this encounter
--- NOTE | 2025-02-14 18:01 | ECG_ITS ---
Test Date: 2025-02-14 18:08:35 Measurements Intervals [place] Rate: 94 P: 14 [place]: 163 QRS: 2 QRSD: 97 T: 69 QT: 363 QTc: 454 Interpretive Statements SINUS RHYTHM VOLTAGE CRITERIA FOR LVH, CONSIDER NORMAL VARIANT POSSIBLE ANTERIOR MYOCARDIAL INFARCTION , PROBABLY OLD Electronically Signed On 02-15-2025 07:29:20 CDT by Joe Gong D.O
[2025-02-14 18:14] LABS: Estimated CRCL calculation 56 ml/min; Estimated Glomerular Filt Rate > 60
--- NOTE | 2025-02-14 18:16 | ED.ABDPAIN ---
HPI - Abdominal Pain General Chief Complaint: Abdominal Pain Stated Complaint: abd pain, Time Seen by Provider: 02/14/25 17:55 History of Present Illness HPI narrative: 74-year-old female with history of COPD, GERD, hyperlipidemia, hypertension, chronic hypoxic respiratory failure on 5 L nasal cannula at baseline, diverticulitis presents to the ED with at bedside for multiple medical complaints. Patient is reporting 7 days of left-sided abdominal pain that is worse in the left lower quadrant. Patient describes the pain as a dull ache and states it is worse after eating. She reports associated nausea and decreased p.o. intake. She states over the past 2-3 days she has had increase in loose stools. She denies melena or hematochezia, dysuria or hematuria, fevers. Reports small amounts of vomiting. Denies prior abdominal surgeries. Patient also notes earlier today while she was getting dressed she had increased dyspnea from her baseline and felt as though she could not catch her breath. She does report a productive cough with brown sputum and congestion. She denies increased O2 requirement. Denies chest pain, lower extremity edema, hemoptysis, history of VTE. Related Data Home Medications ?Medication ?Instructions ?Recorded ?Confirmed ?Last Taken ?Type albuterol sulfate 90 mcg/actuation 2 puff inhalation Q4H PRN 05/05/20 09/28/21 05/08/20 02:30 History aerosol inhaler SHORTNESS OF BREATH amlodipine 5 mg tablet 5 mg PO DAILY 05/05/20 09/28/21 05/10/20 09:00 History atorvastatin 20 mg tablet 20 mg PO DAILY 05/05/20 09/28/21 Unknown History azelastine 137 mcg (0.1 %) nasal 137 mcg intranasal BID 05/05/20 09/28/21 05/10/20 09:00 History spray buspirone 10 mg tablet 10 mg PO TID 05/05/20 09/28/21 05/10/20 12:30 History clonazepam 0.5 mg tablet 0.5 mg PO DAILY PRN Anxiety 05/05/20 09/28/21 05/09/20 20:20 History clotrimazole 10 mg rocío 10 mg PO QID 05/05/20 09/28/21 05/10/20 12:35 History cyclobenzaprine 5 mg tablet 5 mg PO HS 05/05/20 09/28/21 05/09/20 20:20 History escitalopram oxalate 20 mg tablet 20 mg PO DAILY 05/05/20 05/10/20 05/10/20 09:00 History fluticasone propionate 50 2 spray intranasal DAILY 05/05/20 09/28/21 05/10/20 09:00 History mcg/actuation nasal spray,suspension indapamide 1.25 mg tablet 2.5 mg PO DAILY 05/05/20 09/28/21 05/10/20 09:00 History montelukast 10 mg tablet 10 mg PO HS 05/05/20 09/28/21 05/09/20 20:20 History pramipexole 1.5 mg tablet 4.5 mg PO HS 05/05/20 09/28/21 05/09/20 20:20 History trazodone 50 mg tablet 300 mg PO HS 05/05/20 10/10/21 05/09/20 20:20 History Lactobacillus reuteri 100 million 1 cell PO DAILY 05/06/20 09/28/21 05/10/20 09:00 History cell chewable tablet adalimumab 40 mg/0.4 mL 40 mg subcut [id number] 05/06/20 05/10/20 Unknown History subcutaneous pen kit (Humira(CF) Pen) cholecalciferol (vitamin D3) 10 10 mcg PO DAILY 05/06/20 09/28/21 05/10/20 09:00 History mcg (400 unit) tablet (Vitamin D3) ipratropium 0.5 mg-albuterol 3 mg 3 ml inhalation QID 05/06/20 09/28/21 Unknown History (2.5 mg base)/3 mL nebulization soln multivitamin with minerals 1 tablet PO DAILY 05/06/20 09/28/21 05/10/20 09:00 History prednisone 5 mg tablet 5 mg PO BID 05/06/20 09/28/21 Unknown History aspirin 81 mg tablet,delayed 81 mg PO DAILY 09/28/21 09/28/21 09/28/21 History release clopidogrel 75 mg tablet (Plavix) 75 mg DAILY 09/28/21 09/28/21 09/28/21 History albuterol sulfate 2.5 mg/0.5 mL 2.5 mg inhalation DAILY 10/10/21 10/10/21 Unknown History solution for nebulization calcium carbonate mg PO DAILY 10/10/21 Unknown History fluticasone furoate 200 1 inh inhalation DAILY 10/10/21 10/10/21 Unknown History mcg/actuation blister powder for inhalation fluticasone propionate 50 1 spray intranasal DAILY 10/10/21 10/10/21 Unknown History mcg/actuation nasal spray,suspension furosemide 40 mg tablet 40 mg PO BID 10/10/21 10/10/21 Unknown History potassium chloride 20 mEq 20 meq PO DAILY 10/10/21 10/10/21 Unknown History tablet,extended release tizanidine 4 mg capsule 4 mg PO HS PRN Muscle Spasm 10/10/21 10/10/21 Unknown History hydroxychloroquine 200 mg tablet 200 mg PO BID 11/13/21 11/13/21 Unknown History Allergies Allergy/AdvReac Type Severity Reaction Status Date / Time Penicillins Allergy Unknown Verified 05/06/20 00:23 scopolamine Allergy Unknown Verified 05/06/20 00:23 Sulfa (Sulfonamide Allergy Unknown Verified 05/06/20 00:23 Antibiotics) codeine AdvReac Mild Nausea Verified 02/14/25 18:17 Review of Systems Review of Systems: All systems reviewed & are unremarkable except as noted in HPI and below PMFSH Past Medical History Medical History Obstructive sleep apnea COPD (chronic obstructive pulmonary disease) Chronic respiratory failure GERD (gastroesophageal reflux disease) Restless leg syndrome Hyperlipidemia Rheumatoid arthritis Hypertension Surgical History Surgical History Previous back surgery H/O cervical spine surgery History of knee replacement Family History Family History Sibling Heart attack Lung cancer Chronic obstructive pulmonary disease Mother Hypertension Father Heart attack Hypertension Throat cancer Other Acute myocardial infarction Social History Social History Smoking status: Never smoker Alcohol intake: unknown Drinks per week: 1 Substance use: unknown Substance use type: does not use Gender identity (if verbalized by the patient): Female Sexual Orientation (if Verbalized by the Patient): Straight or Heterosexual Spiritual care concerns: No Exam Narrative: GENERAL: Chronically ill-appearing, NAD. HEAD: Normocephalic, atraumatic. EYES: EOMI. ENT: Nares clear, no rhinorrhea or epistaxis. Mucous membranes moist. NECK: Supple. CHEST: Crackles in the right lower lung field. Decreased lung sounds in the upper lung herrmann. No wheezing or rhonchi. Patient satting 99% on baseline 5 L nasal cannula. Mildly tachypneic, speaking in full sentences HEART: Regular rate and rhythm. No murmur heard. Normal peripheral pulses. ABDOMEN: Normoactive bowel sounds. Abdomen soft with tenderness in the left lower quadrant. No rebound or rigidity. No CVA tenderness. EXTREMITIES: Normal range of motion. Trace edema to bilateral lower extremities SKIN: Warm, dry, no rash. NEURO: No focal deficits. Alert and oriented x3 Course Vital Signs Vital signs: Vital Signs Temperature 99.2 F 02/14/25 17:49 Pulse Rate 99 02/14/25 17:49 Respiratory Rate 28 H 02/14/25 17:49 Blood Pressure 128/69 02/14/25 17:49 Pulse Oximetry 99 02/14/25 17:49 Oxygen Delivery Nasal Cannula 02/14/25 17:49 Oxygen Flow Rate 5 02/14/25 17:49 Temperature 99.2 F 02/14/25 17:49 Pulse Rate 92 02/14/25 18:36 Respiratory Rate 27 H 02/14/25 18:36 Blood Pressure 128/69 02/14/25 17:49 Pulse Oximetry 99 02/14/25 17:49 Oxygen Delivery Nasal Cannula 02/14/25 17:49 Oxygen Flow Rate 5 02/14/25 17:49 MDM - Abdominal Pain MDM Narrative Medical decision making narrative: 74-year-old female with history of COPD, chronic hypoxic respiratory failure on 5 L nasal cannula, hypertension, hyperlipidemia, GERD presents to the ED for abdominal pain, N/V/D and increased work of breathing. See HPI for further history. Triage vitals with tachypnea of 28, otherwise unremarkable. Patient is satting 99% on 5 L nasal cannula and speaking in full sentences, she is in no acute distress. Exam is notable for the above. CBC shows leukocytosis of 15.6. Chemistries with chronic elevation in AST and ALT. Glucose is elevated to 27, however bicarb is 32 with normal anion gap. Urinalysis without UTI. Viral swabs are negative. Lipase within normal limits. EKG shows normal sinus rhythm with a rate of 94 ppm, normal [place] interval, normal QRS duration, normal QTC, no ST elevations or depressions. Troponin is undetectable. BNP within normal limits. D-dimer mildly elevated at 0.49, therefore CTA chest PE obtained which shows limited study due to motion artifact and streak artifact from cardiac pacemaker, however no clear PE identified. CT abdomen pelvis shows no evidence of bowel obstruction, normal appearance of liver, spleen, pancreas and adrenal glands. No clear evidence of appendicitis. There is diverticulosis with some wall thickening in the distal sigmoid colon, however no significant surrounding inflammatory changes to clearly indicate diverticulitis on CT. There is no abnormal fluid. Patient updated on results. She received morphine with resolution of pain. She received 125 mg of Solu-Medrol and DuoNebs with significant improvement in her breathing. I suspect early developing diverticulitis is source of patient's pain as she does have a history of this and states it feels similar. I suspect she has a concurrent COPD exacerbation. She has not required increased O2 demand. She is resting comfortably in exam bed on her baseline nasal cannula. She is tolerating p.o. intake. She feels safe with discharge home. Discussed scheduled nebulizer treatments, clear liquid diet and bowel rest and close follow-up with PCP. Will start her on steroid burst and levoquin/flagyl to cover possible early diverticulitis and COPD exacerbation. Will also provide Zofran for nausea. Discussed strict ED return precautions. She and family at bedside are agreeable with the plan verbalized understanding. Discharged in stable condition. Lab Data 02/14/25 18:15 02/14/25 18:14 Labs: Lab Results 02/14/25 02/14/25 02/14/25 Range/Units 18:13 18:14 18:14 WBC (4.5-10.0) K/mm3 RBC (4.2-5.4) M/mm3 Hgb (12.0-15.0) g/dL Hct (37.0-47.0) % MCV (80-100) fl MCH (26-34) pg MCHC (32-36) g/dl RDW (11.5-14.5) % Plt Count (150-375) k/mm3 MPV (7.4-10.4) fl Immature Gran % (Auto) (0-0.5) % Neut % (Auto) (45.5-73.1) % Lymph % (Auto) (18.3-44.2) % [place] % (Auto) (2.6-8.5) % Eos % (Auto) (0-4.4) % Baso % (Auto) (0.2-1.2) % Lymph # (Auto) (0.9-3.2) K/mm3 [place] # (Auto) (0.1-0.6) K/mm3 Eos # (Auto) (0-0.3) K/mm3 Baso # (Auto) (0.0-0.1) K/mm3 Abs Immat Gran (auto) (0.00-0.031) K/mm3 Absolute Neuts (auto) (1.3-6.7) K/mm3 Absolute Nucleated RBC (0.0-0.012) K/mm3 Nucleated RBC % (0.0-0.2) % PT 13.7 (11.1-14.7) Seconds INR 1.1 APTT 28.6 (22.3-36.8) Seconds D-Dimer 0.49 H Cancelled (<0.48) ug/mL Sodium 139 (137-145) mmol/L Potassium 4.0 (3.4-5.0) mmol/L Chloride 99 (98-107) mmol/L Carbon Dioxide 32 H (22-30) mmol/L Anion Gap 8 (4-12) mmol/L BUN 18 H (7-17) mg/dL Creatinine 0.70 0.57 L (0.7-1.2) mg/dL Estim Creat Clear Calc 56 67 ml/min Estimated GFR > 60 > 60 (59 - ) Glucose 227 H (65-110) mg/dL Calcium 9.9 (8.4-10.2) mg/dL Magnesium 2.0 (1.6-2.3) mg/dL Total Bilirubin 0.2 (0.2-1.3) mg/dL AST 49 H (14-36) U/L ALT 41 H (6-35) U/L Alkaline Phosphatase 70 (38-126) U/L Troponin I < 0.012 (0.000-0.034) ng/mL NT-Pro-B Natriuret Pep 24 (19.9-100) pg/mL Total Protein 7.2 (6.3-8.2) g/dL Albumin 4.3 (3.5-5.1) g/dL Lipase 89 (23-300) U/L Urine Color (Yellow) Urine Appearance (Clear) Urine pH (5.0-9.0) Ur Specific [place] (1.001-1.035) Urine Protein (Negative) mg/dL Urine Glucose (UA) (Negative) mg/dL Urine Ketones (Negative) mg/dL Ur Blood (Man) (Negative) Urine Nitrate (Negative) Urine Bilirubin (Negative) Urine Urobilinogen (<2.0) mg/dL Leukocyte Esterase Rfl (Negative) KYLE/UL Influenza A (RT-PCR) (Negative) Influenza B (RT-PCR) (Negative) RSV (RT-PCR) (Negative) SARS-CoV-2 RNA (RT-PCR) (Negative) 02/14/25 02/14/25 02/14/25 Range/Units 18:15 18:21 19:22 WBC 15.6 H (4.5-10.0) K/mm3 RBC 4.01 L (4.2-5.4) M/mm3 Hgb 12.0 (12.0-15.0) g/dL Hct 38.0 (37.0-47.0) % MCV 94.8 (80-100) fl MCH 29.9 (26-34) pg MCHC 31.6 L (32-36) g/dl RDW 13.4 (11.5-14.5) % Plt Count 244 (150-375) k/mm3 MPV 9.4 (7.4-10.4) fl Immature Gran % (Auto) 0.6 H (0-0.5) % Neut % (Auto) 81.6 H (45.5-73.1) % Lymph % (Auto) 11.0 L (18.3-44.2) % [place] % (Auto) 6.3 (2.6-8.5) % Eos % (Auto) 0.1 (0-4.4) % Baso % (Auto) 0.4 (0.2-1.2) % Lymph # (Auto) 1.72 (0.9-3.2) K/mm3 [place] # (Auto) 1.0 H (0.1-0.6) K/mm3 Eos # (Auto) 0.0 (0-0.3) K/mm3 Baso # (Auto) 0.1 (0.0-0.1) K/mm3 Abs Immat Gran (auto) 0.09 H (0.00-0.031) K/mm3 Absolute Neuts (auto) 12.8 H (1.3-6.7) K/mm3 Absolute Nucleated RBC 0.000 (0.0-0.012) K/mm3 Nucleated RBC % 0.0 (0.0-0.2) % PT (11.1-14.7) Seconds INR APTT (22.3-36.8) Seconds D-Dimer (<0.48) ug/mL Sodium (137-145) mmol/L Potassium (3.4-5.0) mmol/L Chloride (98-107) mmol/L Carbon Dioxide (22-30) mmol/L Anion Gap (4-12) mmol/L BUN (7-17) mg/dL Creatinine (0.7-1.2) mg/dL Estim Creat Clear Calc ml/min Estimated GFR (59 - ) Glucose (65-110) mg/dL Calcium (8.4-10.2) mg/dL Magnesium (1.6-2.3) mg/dL Total Bilirubin (0.2-1.3) mg/dL AST (14-36) U/L ALT (6-35) U/L Alkaline Phosphatase (38-126) U/L Troponin I (0.000-0.034) ng/mL NT-Pro-B Natriuret Pep (19.9-100) pg/mL Total Protein (6.3-8.2) g/dL Albumin (3.5-5.1) g/dL Lipase (23-300) U/L Urine Color Yellow (Yellow) Urine Appearance Clear (Clear) Urine pH 7.0 (5.0-9.0) Ur Specific [place] 1.028 (1.001-1.035) Urine Protein Negative (Negative) mg/dL Urine Glucose (UA) 3+ H (Negative) mg/dL Urine Ketones Negative (Negative) mg/dL Ur Blood (Man) Negative (Negative) Urine Nitrate Negative (Negative) Urine Bilirubin Negative (Negative) Urine Urobilinogen 0.2 (<2.0) mg/dL Leukocyte Esterase Rfl Negative (Negative) KYLE/UL Influenza A (RT-PCR) Negative (Negative) Influenza B (RT-PCR) Negative (Negative) RSV (RT-PCR) Negative (Negative) SARS-CoV-2 RNA (RT-PCR) Negative (Negative) Imaging Data Radiologist's impression: ITS Impressions Chest X-Ray 02/14/25 19:11 IMPRESSION: 1. Cardiomegaly and chronic elevation of the left hemidiaphragm. No acute cardiopulmonary disease. Discharge Plan Discharge Clinical Impression: Acute exacerbation of chronic obstructive pulmonary disease, Abdominal pain, LLQ Patient Disposition: Home Condition: Stable Instructions: Antibiotic Form, Diverticulitis (ED), Clear Liquid Diet (ED), COPD (Chronic Obstructive Pulmonary Disease) (DC) Additional Instructions: Please take the antibiotics as directed. Make sure you are using her nebulizer treatments as directed every 6 hours. Take the steroids as directed. Follow-up closely with her primary care provider. Eat a clear liquid diet for the next 24-48 hours followed by a bland diet as discussed. Return to the emergency department if you develop worsening or changing abdominal pain, fever, difficulty breathing, chest pain, inability to tolerate food or fluids, or other concerning symptoms. Patient Language: French Prescriptions: New levofloxacin 750 mg tablet 750 mg PO DAILY Qty: 7 0RF ondansetron 4 mg tablet,disintegrating 4 mg PO Q8H Qty: 7 0RF hydrocodone-acetaminophen 5-325 mg tablet 1 tablet PO Q8H PRN (Reason: pain) Qty: 7 0RF metronidazole 500 mg tablet 500 mg PO Q8H 7 Days Qty: 21 0RF prednisone 50 mg tablet 50 mg PO DAILY Qty: 5 0RF No Action clotrimazole 10 mg rocío 10 mg PO QID atorvastatin 20 mg tablet 20 mg PO DAILY Rx Instructions: HOLD trazodone 50 mg tablet 300 mg PO HS Rx Instructions: can take up to 6 tabs @ HS clonazepam 0.5 mg tablet 0.5 mg PO DAILY PRN (Reason: Anxiety) amlodipine 5 mg tablet 5 mg PO DAILY buspirone 10 mg tablet 10 mg PO TID indapamide 1.25 mg tablet 2.5 mg PO DAILY montelukast 10 mg tablet 10 mg PO HS azelastine 137 mcg (0.1 %) aerosol,spray 137 mcg INTRANASAL BID Rx Instructions: 2 SPRAYS BID albuterol sulfate 90 mcg/actuation HFA aerosol inhaler 2 puff INHALATION Q4H PRN (Reason: SHORTNESS OF BREATH) fluticasone propionate 50 mcg/actuation spray,suspension 2 spray intranasal DAILY Rx Instructions: 2 SPRAYS EACH NOSTRIL pramipexole 1.5 mg tablet 4.5 mg PO HS escitalopram oxalate 20 mg tablet 20 mg PO DAILY cyclobenzaprine 5 mg tablet 5 mg PO HS ipratropium-albuterol 0.5 mg-3 mg(2.5 mg base)/3 mL solution for nebulization 3 ml INHALATION QID Patient Comments: states she takes mostly 3 times per day multivitamin with minerals Tablet 1 tablet PO DAILY cholecalciferol (vitamin D3) [Vitamin D3] 10 mcg (400 unit) Tablet 10 mcg PO DAILY Lactobacillus reuteri 100 million cell Tablet,Chewable 1 cell PO DAILY Humira(CF) Pen 40 mg/0.4 mL pen injector kit 40 mg SUBCUT [id number] prednisone 5 mg tablet 5 mg PO BID Patient Comments: uses on ly for flare ups tramadol 50 mg tablet 50 mg PO BID Qty: 0 0RF Rx Instructions: up to x 3 per day acetaminophen 500 mg tablet 500 mg PO Q6H PRN (Reason: pain) Qty: 30 1RF Patient Comments: states she takes up to 3 times per day with her tramadol. ferrous sulfate 324 mg (65 mg iron) tablet,delayed release (DR/EC) 324 mg PO DAILY Qty: 30 0RF omeprazole 20 mg capsule,delayed release(DR/EC) 20 mg PO BID Qty: 0 0RF prednisone 50 mg tablet 50 mg PO DAILY Qty: 7 0RF doxycycline monohydrate 100 mg tablet 100 mg PO BID Qty: 10 0RF clopidogrel [Plavix] 75 mg Tablet 75 mg DAILY aspirin [Aspir-81] 81 mg Tablet,Delayed Release (Dr/Ec) 81 mg PO DAILY furosemide 40 mg Tablet 40 mg PO BID albuterol sulfate 2.5 mg/0.5 mL Solution For Nebulization 2.5 mg INHALATION DAILY fluticasone furoate 200 mcg/actuation Blister With Device 1 inh INHALATION DAILY fluticasone propionate 50 mcg/actuation [place],Suspension 1 spray INTRANASAL DAILY calcium carbonate [Calcitab 600] 600 mg calcium (1,500 mg) Tablet PO DAILY tizanidine 4 mg Capsule 4 mg PO HS MDD 4 mg PRN (Reason: Muscle Spasm) Rx Instructions: 0.5 of tab up to 1 full tab potassium chloride 20 mEq Tablet Extended Release 20 meq PO DAILY hydroxychloroquine 200 mg Tablet 200 mg PO BID Follow-up/Referrals: Carey,MD Anila [Primary Care Provider]
[2025-02-14] MEDS: IPRATROPIUM 0.5 MG/ALBUTEROL SULFATE 2.5 MG AMPUL.NEB 3 ML INHALATION ×3 (18:31→18:33)
[2025-02-14 18:32] LABS: Hematocrit 38.0 % (37.0-47.0); Hemoglobin 12.0 g/dL (12.0-15.0); Immature Granulocyte Percent A 0.6 % (0-0.5); Lymphocytes Absolute Auto 1.72 K/mm3 (0.9-3.2); Mean Corpuscular HGB Conc 31.6 g/dl (32-36); Mean Corpuscular Hemoglobin 29.9 pg (26-34); Mean Corpuscular Volume 94.8 fl (80-100); Nucleated Red Blood Cells Absolute Auto 0.000 K/mm3 (0.0-0.012); Nucleated Red Blood Cells Perc 0.0 % (0.0-0.2); Platelet Count Result 244 k/mm3 (150-375); Red Blood Count 4.01 M/mm3 (4.2-5.4); White Blood Count 15.6 K/mm3 (4.5-10.0)
[2025-02-14 18:36] VITALS: PULSE 92; RESP 27
[2025-02-14 18:38] LABS: Add Urine Microscopic? NO; Appearance Urine Clear (Clear); Glucose Urine UA 3+ mg/dL (Negative); Leukocyte Esterase Ur Negative LEU/UL (Negative); Nitrate Urine Negative (Negative); Specific Grav Ur 1.028 (1.001-1.035)
[2025-02-14 18:42] LABS: Alanine Aminotransferase 41 U/L (6-35); Albumin Level 4.3 g/dL (3.5-5.1); Alkaline Phosphatase 70 U/L (38-126); Anion Gap 8 mmol/L (4-12); Aspartate Amino Transferase 49 U/L (14-36); Bilirubin,Total 0.2 mg/dL (0.2-1.3); Blood Urea Nitrogen 18 mg/dL (7-17); Calcium 9.9 mg/dL (8.4-10.2); Carbon Dioxide 32 mmol/L (22-30); Chloride 99 mmol/L (98-107); Estimated CRCL calculation 67 ml/min; Estimated Glomerular Filt Rate > 60; Glucose 227 mg/dL (65-110); Lipase 89 U/L (23-300); Magnesium 2.0 mg/dL (1.6-2.3); Potassium 4.0 mmol/L (3.4-5.0); Sodium 139 mmol/L (137-145); Total Protein 7.2 g/dL (6.3-8.2)
[2025-02-14 18:45] LABS: INR 1.1; Partial Thromboplastin Time 28.6 Seconds (22.3-36.8); Prothrombin Time 13.7 Seconds (11.1-14.7)
[2025-02-14 18:54] LABS: NT Pro B Type Natriuretic Pept 24 pg/mL (19.9-100); Troponin I < 0.012 ng/mL (0.000-0.034)
--- NOTE | 2025-02-14 19:33 | PC.NURSE ---
Pt to CT at this time.
[2025-02-14 20:04] LABS: Influenza A QL RT-PCR Negative (Negative); Influenza B QL RT-PCR Negative (Negative); RSV RNA, RT-PCR Negative (Negative); SARS-CoV-2 RNA PCR Negative (Negative)
[2025-02-14] MEDS: MORPHINE SULFATE (*CRX) 2 MG/ML INJ IV PUSH (21:05)
[2025-02-14 23:22] VITALS: BP 126/72; PULSE 96; RESP 19; O2SAT 98
== END 2025-02-14 23:23 | disposition home or self-care (01) ==
PROVIDERS: Emergency Provider Physician Assistant; PCP Internal Medicine Geriatric Medicine
DX: J44.1 Chronic obstructive pulmonary disease with (acute) exacerbation (principal); R10.32 Left lower quadrant pain; Z20.822 Contact with and (suspected) exposure to COVID-19; G47.30 Sleep apnea, unspecified; K21.9 Gastro-esophageal reflux disease without esophagitis; G25.81 Restless legs syndrome; E78.5 Hyperlipidemia, unspecified; I10 Essential (primary) hypertension; M06.9 Rheumatoid arthritis, unspecified
CPT/HCPCS: 36415; 71045; 71275; 74177; 80053; 81003; 83690; 83735; 83880; 84484; 85025; 85380; 85610; 85730; 87637; 93005; 94640; 96374; 96375; 99284; A9270; J2270; J2919; Q9967

== ENCOUNTER 2025-02-25 10:01 | Inpatient (IN) | payer MEDICARE, MEDICAID, SELFPAY ==
--- OUTSIDE RECORDS SUMMARY | 2002-01-20 09:30 | XMS_ITS | Continuity of Care Document ---
Author Organization [facility] Address [address] [place] [address] [place] [address] Phone Care Team Providers Care Sausage Canner Name Role Phone Levi Rodriguez MD Unavailable Unavailable Advance Directives Directive Yes / No Effective Date File Name No Information Encounters Encounter Description Practice Location Reason(s) For Visit Diagnoses Date Provider Providers Copied on Encounter [facility], [address] [place] [address] [address], [place], [place], [id number], [place] tel:[phone] SEC [facility] Professional No Information [address] Jennifer Sims. [address] [facility] [address], [place], [place], [id number], [place]. tel:[phone] Family History Family Member Type Diagnosis Age At Onset No Information Payers Payer name Insurance type Covered alliance party ID Authoriza tion(s) No Information Social History Type Description Quantity Date Captured Comments Sex Female Smoking Status No Information Chief Complaint And Reason For Visit No Information Reason For Referral Reason For Referral No Information History Of Present Illness Encounter Date Complaint History Of Prese nt Illness No Information Functional Status Date Functional Assessmen t No Information Instructions Date Instruction Additional Infor mation No Information Assessments Type Assessment Date No Information Patient Care Teams Name Effective Dates (start - stop) Status Members No Information
--- OUTSIDE RECORDS SUMMARY | 2025-02-24 10:00 | XMS_ITS | Encounter Summary ---
Author Organization [facility] Healthcare Address [address] [place] [address] Care Team Providers Care Resident Hall Director Name Role Phone Anila Patino MD Primary Care Provider [phone] Salomon Medrano MD Unavailable [phone] Rosalinda Looney MD Unavailable Lit Singer MD Unavailable Johan Marti MD Unavailable Tino Still MD Unavailable Matt Richardson DO Unavailable [phone] Yasmine Yanes MD Unavailable Hero Jackman MD Unavailable Ronal Jackson MD Unavailable Kristen Perez MD Unavailable Ryan Sanders MD Unavailable Geovanna Alvarenga DPM Unavailable Ariadne Shook NP Unavailable [phone] Tabby Light RN Unavailable Junior Tobin MD Unavailable Reason for Visit * Reason Comments hospital follow up Diverticulitis Encounter Details Date Type Department Care Team (Late st Contact Info) Description 02/24/2025 10:00 AM CDT Office Visit [facility] [address] [place] [phone] Miriam Deleon NP [address] [place] [address] Hospital discharge follow-up (Primary Dx); LLQ pain; Dysuria; Panlobular emphysema (HCC); Essential (primary) hypertension; Hyperglycemia Social History Tobacco Use Types Packs/Day Years Used Date Smoking Tobacco: Never Passive Smoke Exposure: Past Smokeless Tobacco: Never Alcohol Use Standard Drinks/Week Comments Never 0 (1 standard drink = 0.6 oz [...] often do you attend chur ch or lutheran services? More than 4 times per year 07/05/2024 Do you belong to any clubs o r organizations such as yazidi groups, unions, fraternal or athletic groups, or [...] points, staff should administer the PHQ-9) 1 02/24/2025 PRAPARE - Transportation Answer Date Re corded [...] any time in the past 12 m [facility], were you homeless or living in a retirement (including now)? No 07/05/2024 Social Connection and Isolation Panel Answer Date Recorded Frequency of Communication with Friends and Fami ly Not on file 02/21/2025 Frequency of Social Gatherings with Friends and Family Not on file 02/21/2025 Attends Gnosticist Services Not on file 02/21 Active Member of Clubs or Organizations Not on f ile 02/21/2025 Attends Club or Organization Meetings Not on leo e 02/21/2025 Are you , , di vorced, , never , or living with a partner? 02/21/2025 AUDIT-C Answer Date Recorded Q1: How often do you have a drink containing alcohol? Never 02/21/2025 Q2: How many drinks containi ng alcohol do you have on a typical day when you are drinking? Patient does not drink Q3: How often do you have si x or more drinks on one occasion? Never 02/21/2025 Overall Financial Resource Strain (CARDIA) Answe r Date Recorded How hard is it for you to pa y for the very basics like food, housing, medical care, and heating? Not very hard 02/21/2025 Hunger Vital Sign Answer Date Recorded Within the past 12 months, y ou worried that your food would run out before you got the money to buy more. Never true 02/22/20 25 Within the past 12 months, t he food you bought just didn't last and you didn't have money to get more. Never true 02/21/2025 PRAPARE - Transportation Answer Date Re corded In the past 12 months, has l ack of transportation kept you from medical appointments or from getting medications? No 01/2025 In the past 12 months, has l ack of transportation kept you from meetings, work, or from getting things needed for daily living? No 02/21/2025 Housing Stability Vital Sign Answer Morris e Recorded In the last 12 months, was t here a time when you were not able to pay the mortgage or rent on time? No 02/21/2025 Number of Times Moved in the Last Year Not on fi le 02/21/2025 At any time in the past 12 m [facility], were you homeless or living in a retirement (including now)? No 02/21/2025 [facility] Utilities Answer Date Recorded In the past 12 months has th e electric, gas, oil, or water company threatened to shut off services in your home? 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 Gender Identity Female 03/06/2022 7:30 PM CDT Sexual Orientation Straight 03/06/2022 7: 30 PM CDT Occupation Industry Job Start Date Job End Date disabled Not on file Not on file Not on file documented as of this encounter Last Filed Vital Signs Vital Sign Reading Time Taken Comments Blood Pressure 122/64 02/24/2025 9:58 AM CDT Pulse 105 02/24/2025 9:58 AM CDT Temperature 36.4 C (97.6 F) 02/24/2025 9:58 AM CDT Respiratory Rate 20 02/24/2025 9:58 AM CDT Oxygen Saturation 95% 02/24/2025 9:58 AM CDT Inhaled Oxygen Concentration - - Weight 75.8 kg (167 lb) 02/24/2025 9:58 AM CDT Height 152.4 cm (5') 02/24/2025 9:58 AM CDT Body Mass Index 32.61 02/24/2025 9:58 AM CDT documented in this encounter Patient Instructions * Patient Instructions* Miriam Deleon NP - 02/24/2025 10:00 AM CDT Labs and UA-already in. Follow in 2 weeks for fatigue, abdominal pain, ear pain. documented in this encounter Ordered Prescriptions Prescription Sig Dispense Quantity Refills Last Filled Start Date End Date moxifloxacin (AVELOX) 400 mg tabletIndications: Panlobular emphysema (HCC) Take 1 tablet (400 mg total) by mouth daily for 10 days 10 tablet 02/24/2025 03/06/2025 documented in this encounter Plan of Treatment Upcoming Encounters Date Type Department Care Team (Latest Contact Info) Description 02/25/2025 12:30 PM CDT Ancillary Procedure [place] [address] [place] [phone] SSS (sick sinus syndrome) (HCC); Cardiac pacemaker in situ 09/07/2025 Orders Only [facility] [address] [place] [address] Scanning, Provider documented as of this encounter Goals Goal Patient Goal Type Associated Problems Recent Progress Patient-Stated? Author ZAC General Goal - Patient schedules and keeps appointments with all recommended providers [facility] Care Management On track(2024 3:50 PM CDT) Tabby Owens RN Note: Problem: [...] to respond ACO Care Management On track(2024 3:50 PM CDT) Tabby Owens RN Note: Problem: [...] take, when to call CM or provider. [facility] Chronic Pain Care Plan Chronic [...] home safety. documented as of this encounter Results * (ABNORMAL) Urinalysis reflex to microscopic and culture Urine, clean voided (02/24/2025 10:54 AM CDT) Color, ur Yellow Yellow Comment:Testing performed by : [address] [address] Clarity, ur Clear Clear [facility] Comment:Testing performed by : [address] [address] Specific gravity, ur 1.030 1.003 - 1.030 [facility] Comment:Testing performed by : [address] [address] pH, urine 6.0 [facility] Comment: Interpretive Data U rine pH is affected by diet, medications, systemic acid-base disturbances, and renal tubular function. pH may affect urinary stone formation. For example, urine pH below 6.0 may help reduce the tendency for calcium phosphate stones and pH greater than 6.0 may reduce the tendency for uric acid stone formation. Source: [facility] Current Interpretive Data was last revised on 2017 Testing performed by: [facility], [address] [place] [address]., [address] Protein, ur ql 1+(A) Negative [facility] Comment:Testing performed by : [address] [address] Glucose, ur ql Negative Negative [facility] Comment:Testing performed by : [address] [address] Ketones, ur Negative Negative [facility] Comment:Testing performed by : [address], [address] Bilirubin, ur Negative Negative [facility] Comment:Testing performed by : [address], [address] Blood, ur Negative Negative [facility] Comment:Testing performed by : [address] [address] Urobilinogen, ur <2.0 <2.0 mg/dL [facility] Comment:Testing performed by : [address] [address] Nitrite, ur Negative Negative [facility] Comment:Testing performed by : [address] [address] Leukocyte esterase, ur Negative Negative [facility] Comment:Testing performed by : [address], [address] UA reflex comment Reflex to microscopic UA will be performed. [facility] Comment:Testing performed by : [address] [address] Urine, clean voided 02/24/2025 10:54 AM CDT 02/24/2025 5:41 PM CDT us Miriam Deleon NP LAB MICROBIOLOGY - GENERAL ORDER AZIZA Final Result [place] [address] [address] [place] [address] * Thyroid Function [place] (02/24/2025 10:54 AM CDT) TSH 2.12 0.30 - 4.20 mcIUnit/mL Comment:Testing performed by : [address] [address] Blood 02/24/2025 10:5 4 AM CDT 02/24/2025 5:41 PM CDT Miriam Deleon FUMIGATOR AND STERILIZER LAB BLOOD ORDERABLES Final Resul t [place] [address] [facility] [employer] [place] [address] * (ABNORMAL) Hemoglobin A1c (02/24/2025 10:54 AM CDT) Hgb A1C 7.1(H) 4.0 - 5.6 % Comment:Testing performed by : [address] [address] Estimated Average Glucose 157 mg/dL [facility] [place] Comment: The ADA recommends reporting an estimated Average Glucose (eAG) with all Hemoglobin A1c results using the equation derived from a study of 507 normal and diabetic adults. Minority populations were underrepresented and children were not included. (Diabetes Care 31:4502-8240, 2008). The eAG is not equivalent to a fasting glucose. Testing performed by: [address] [address] Blood 02/24/2025 10:5 4 AM CDT 02/24/2025 5:41 PM CDT Miriam Deleon FUMIGATOR AND STERILIZER LAB BLOOD ORDERABLES Final Resul t [place] [address] [facility] [employer] [place] [address] documented in this encounter Visit Diagnoses Diagnosis Hospital discharge follow-up- Primary Other follow-up examination LLQ pain Abdominal pain, left lower quadrant Dysuria Panlobular emphysema (HCC) Other emphysema Essential (primary) hypertension Unspecified essential hypertension Hyperglycemia Other abnormal glucose SSS (sick sinus syndrome) (HCC) Sinoatrial node dysfunction Cardiac pacemaker in situ documented in this encounter Discontinued Medications Medication Sig Discontinue Reason Start Date End Da te predniSONE (DELTASONE) 10 mg tabletIndications:Panlobu lar emphysema (HCC) Take 3 tabs (30 mg) po every day for 3 days, then 2 tabs (20 mg) po every day for 3 days, then 1 tab (10 mg) po every day for 3 days Therapy completed 01/11/2025 02/24/2025 documented as of this encounter Care Teams Resident Hall Director Relationship Specialty Start Date End Date Anila Patino MD PCP - General 09/13/16 Salomon Medrano MD [address] [facility] [address] [place] [address] Rheumatology 01/02/17 Rosalinda Looney MD [address] [address] Psychiatry 01/02/17 Lit Singer MD [address] [address] Radiation Oncology 01/02/17 Johan Marti MD [address] [facility] [address] [place] [address] Neurosurgery 01/02/17 Tino Still MD [address] [place] [address] Surgeon Orthopedic Surgery 09/19/17 Matt Richardson DO [address] [place] [address] [address] [place] [address] Consulting Physician Gastroenterology 12/10/19 Yasmine Yanes MD [address] [place] [facility] [address] [place] [address] Consulting Physician Cardiology 07/23/21 Hero Jackman MD [address] [facility] NEUROLOGY SLEEP [facility], [facility] [address] [place] [address] Consulting Physician Sleep Medicine 07/22/23 Ronal Jackson MD [address] [place] [address] Consulting Physician Pulmonary Disease 02/19/24 Kristen Perez MD [address] [place] [address] Anesthesiologist Pain Management 02/19/24 Ryan Sanders MD [address] [facility] [address] [place] [address] Consulting Physician Urology 05/04/22 Geovanna Alvarenga DPM [address] [place] [address] Consulting Physician Foot and Ankle Surg 05/04/24 Ariadne Shook NP [address] [place] [address] Nurse Practitioner Neurology 06/01/24 Tabby Light RN [address] [facility] [address] [place] [address] Research Physician 07/05/24 Junior Tobin MD [address] [address] Consulting Physician Urology 07/21/24 documented as of this encounter
--- OUTSIDE RECORDS SUMMARY | 2025-02-24 11:00 | XMS_ITS | Encounter Summary ---
Author Organization [facility] Healthcare Address [address] [place] [address] Care Team Providers Care Glass Artist Name Role Phone Anila Patino MD Primary Care Provider [phone] Salomon Medrano MD Unavailable [phone] Rosalinda Looney MD Unavailable Lit Singer MD Unavailable Johan Marti MD Unavailable Tino Still MD Unavailable Matt Richardson DO Unavailable [phone] Yasmine Yanes MD Unavailable Hero Jackman MD Unavailable Ronal Jackson MD Unavailable Kristen Perez MD Unavailable Ryan Sanders MD Unavailable Geovanna Alvarenga DPM Unavailable Ariadne Shook NP Unavailable Tabby Light RN Unavailable Junior Tobin MD Unavailable Encounter Details Date Type Department Care Team (Late st Contact Info) Description 02/24/2025 11:00 AM CDT Lab [facility] [address] [place] [address] Rheumatoid arthritis involving multiple sites with positive rheumatoid factor (HCC); Benign hypertension; Medication monitoring encounter; Ischemic heart disease; Essential (primary) hypertension; Hyperglycemia; Dysuria Social History Tobacco Use Types Packs/Day Years [...] often do you attend chur ch or quaker services? More than 4 times per year 07/05/2024 Do you belong to any clubs o r organizations such as mandaeism groups, unions, fraternal or athletic groups, or [...] any time in the past 12 m ont, were you homeless or living in a fdc (including now)? No 07/05/2024 Social Connection and Isolation Panel Answer Date Recorded Frequency of Communication with Friends and Fami ly Not on file 02/21/2025 Frequency of Social Gatherings with Friends and Family Not on file 02/21/2025 Attends Gnosticism Services Not on file 02/21 Active Member [...] any time in the past 12 m [facility], were you homeless or living in a fdc (including now)? No 02/21/2025 [facility] Utilities Answer Date Recorded In the past 12 months has e electric, gas, oil, or water company threatened to shut off services in your home? 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 Gender Identity Female 03/06/2022 7:30 PM CDT Sexual Orientation Straight 03/06/2022 7: 30 PM CDT Occupation Industry Job Start Date Job End Date disabled Not on file Not on file Not on file documented as of this encounter Plan of Treatment Upcoming Encounters Date Type Department Care Team (Latest Contact Info) Description 02/25/2025 12:30 PM CDT Ancillary Procedure [place] [facility] [employer] [address] [place] [phone] SSS (sick sinus syndrome) (HCC); Cardiac pacemaker in situ 09/07/2025 Orders Only [facility] [address] [place] [phone] Scanning, Provider documented as of this encounter Goals Goal Patient Goal Type Associated Problems Recent Progress Patient-Stated? Author ZAC General Goal - Patient schedules and keeps appointments with all recommended providers [facility]CO Care Management On track(2024 3:50 PM CDT) Tabby Owens, RN Note: Problem: Potential for medical complications [...] take, when to call CM or provider. [facility] Chronic Pain Care Plan Chronic [...] Procedure Name Priority Date/Time Associated Diagnosis Comments EGFR Routine 02/24/2025 10:54 AM CDT Rheumatoid arthritis involving multiple sites with positive rheumatoid factor (HCC) Benign hypertension Medication monitoring encounter Ischemic heart disease DIFFERENTIAL AUTO Routine 02/24/2025 10: 54 AM CDT Rheumatoid arthritis involving multiple sites with positive rheumatoid factor (HCC) Benign hypertension Medication monitoring encounter Ischemic heart disease THYROID FUNCTION CASCADE Routine 02/24/2025 10:54 AM CDT Essential (primary) hypertension URINALYSIS AND REFLEX TO MICROSCOPIC AND CULTURE Routine 02/24/2025 10:54 AM CDT Dysuria CBC WITH AUTO DIFFERENTIAL Routine 02/24/2025 10:54 AM CDT Rheumatoid arthritis involving multiple sites with positive rheumatoid factor (HCC) Benign hypertension Medication monitoring encounter Ischemic heart disease URINALYSIS, MICROSCOPIC ONLY Routine 02/24/2025 10:54 AM CDT Dysuria ERYTHROCYTE SEDIMENTATION RATE Routine 02/24/2025 10:54 AM CDT Rheumatoid arthritis involving multiple sites with positive rheumatoid factor (HCC) Benign hypertension Medication monitoring encounter Ischemic heart disease CRP (ACUTE PHASE) Routine 02/24/2025 10: 54 AM CDT Rheumatoid arthritis involving multiple sites with positive rheumatoid factor (HCC) Benign hypertension Medication monitoring encounter Ischemic heart disease TSH Routine 02/24/2025 10:54 AM CDT Rheumatoid arthritis involving multiple sites with positive rheumatoid factor (HCC) Benign hypertension Medication monitoring encounter Ischemic heart disease T4, FREE Routine 02/24/2025 10:54 AM CDT Rheumatoid arthritis involving multiple sites with positive rheumatoid factor (HCC) Benign hypertension Medication monitoring encounter Ischemic heart disease HEMOGLOBIN A1C Routine 02/24/2025 10:54 AM CDT Essential (primary) hypertension Hyperglycemia LIPID PANEL Routine 02/24/2025 10:54 AM CDT Rheumatoid arthritis involving multiple sites with positive rheumatoid factor (HCC) Benign hypertension Medication monitoring encounter Ischemic heart disease COMPREHENSIVE METABOLIC PANEL Routine 02/24/2025 10:54 AM CDT Rheumatoid arthritis involving multiple sites with positive rheumatoid factor (HCC) Benign hypertension Medication monitoring encounter Ischemic heart disease documented in this encounter Results * eGFR (02/24/2025 10:54 AM CDT) eGFR >90 >=60 mL/min/1. 73 m2 Comment: Interpretive Data Reference Interval Normal >/= 90 mL/min/1.73m2 Mildly decreased* 60 - 89 mL/min/1.73m2 Mildly to moderately decreased 45 - 59 mL/min/1.73m2 Moderately to severely decreased 30 - 44 mL/min/1.73m2 Severely decreased 15 - 29 mL/min/1.73m2 Kidney Failure < 15 mL/min/1.73m2 *Relative to young adult level Estimated glomerular filtration rate is determined by the 2020 CKD-EPI equation recommended by the National Kidney Foundation (A Unifying Approach to GFR Estimation: Recommendations of the NKF-ASK Task Force on Reassessing the Inclusion of Race in Diagnosing Kidney Disease, JASN 2020). The CKD-EPI equation should not be used for patients with unstable renal function and has not been validated in children and those over 70. Current interpretive data was last reviewed 2021. Testing performed by: [address] [address] Blood 02/24/2025 10:5 4 AM CDT 02/24/2025 5:52 PM CDT Anila Patino MD LAB BLOOD ORDERABLES Final Result Performing Organization Address City/State/[facility] Co de Phone Number [address] [place] [address] * (ABNORMAL) Urinalysis, microscopic only (02/24/2025 10:54 AM CDT) WBC, ur 0-5 0 - 5 /HPF Comment:Testing performed by : [address] [address] RBC, ur 3-5(A) 0 - 2 /HPF [place] Comment:Testing performed by : [address] [address] Epithelial cells, squamous, ur 1-5 0 - 5 /HPF [place] Comment:Testing performed by : [address] [address] Mucous, ur Present(A) [place] Comment:Testing performed by : [address], [address] Hyaline casts, ur 1-5 0 - 10 /LPF [place] Comment:Testing performed by : [address], [address] Culture Reflex Comment Reflex conditions for urine culture (WBC >10) not met. [place] Comment:Testing performed by : [address], [address] Urine, clean voided 02/24/2025 10:54 AM CDT 02/24/2025 5:41 PM CDT Miriam Deleon NP LAB URINE ORDERABLES Final Resul t [address] [place] [address] * (ABNORMAL) Differential, auto (02/24/2025 10:54 AM CDT) Neutrophil abs 11.58(H) 1.50 - 6.50 K/cumm Comment:Testing performed by : [address], [address] Imm gran abs 0.10 0.00 - 0.10 K/cumm [place] Comment:Testing performed by : [address], [address] Lymphocyte abs 2.72 0.80 - 3.30 K/cumm [place] Comment:Testing performed by : [address], [address] Monocyte abs 1.73(H) 0.20 - 0.80 K/cumm [place] Comment:Testing performed by : [address], [address] Eosinophil abs 0.12 0.00 - 0.50 K/cumm [place] Comment:Testing performed by : [address], [address] Basophil abs 0.08 0.00 - 0.10 K/cumm CERNER CH Comment:Testing performed by : [facility], [address] [place] [address]., [address] Neutrophil pct 70.9 % CERNER CH Comment: Interpretive Data Percent cell count reference ranges are not reported, since discordance with absolute values may lead to misinterpretation of CBC data. Current Interpretive Data was last revised on 2017. Testing performed by: [facility], [address] [place] [address]., [address] Imm gran pct 0.6 % CERNER CH Comment: Interpretive Data Percent cell count reference ranges are not reported, since discordance with absolute values may lead to misinterpretation of CBC data. Current Interpretive Data was last revised on 2017. Testing performed by: [address] [address] Lymphocyte pct 16.7 % CERNER CH Comment: Interpretive Data Percent cell count reference ranges are not reported, since discordance with absolute values may lead to misinterpretation of CBC data. Current Interpretive Data was last revised on 2017. Testing performed by: [address] [address] Monocyte pct 10.6 % CERNER CH Comment: Interpretive Data Percent cell count reference ranges are not reported, since discordance with absolute values may lead to misinterpretation of CBC data. Current Interpretive Data was last revised on 2017. Testing performed by: [address] [address] Eosinophil pct 0.7 % CERNER CH Comment: Interpretive Data Percent cell count reference ranges are not reported, since discordance with absolute values may lead to misinterpretation of CBC data. Current Interpretive Data was last revised on 2017. Testing performed by: [address] [address] Basophil pct 0.5 % CERNER CH Comment: Interpretive Data Percent cell count reference ranges are not reported, since discordance with absolute values may lead to misinterpretation of CBC data. Current Interpretive Data was last revised on 2017. Testing performed by: [address] [address] Blood 02/24/2025 10:5 4 AM CDT 02/24/2025 5:41 PM CDT us Anila Patino MD LAB BLOOD ORDERABLES Final Result [address] Department [place] [address] * (ABNORMAL) Urinalysis reflex to microscopic and culture Urine, clean voided (02/24/2025 10:54 AM CDT) Color, ur Yellow Yellow Comment:Testing performed by : [address] [address] Clarity, ur Clear Clear CERNER Comment:Testing performed by : [address] [address] Specific gravity, ur 1.030 1.003 - 1.030 CERNER CH Comment:Testing performed by : [address] [address] pH, urine 6.0 INNA[place] Comment: Interpretive Data U rine pH is affected by diet, medications, systemic acid-base disturbances, and renal tubular function. pH may affect urinary stone formation. For example, urine pH below 6.0 may help reduce the tendency for calcium phosphate stones and pH greater than 6.0 may reduce the tendency for uric acid stone formation. Source: [facility] [employer] Current Interpretive Data was last revised on 2017 Testing performed by: [address] [address] Protein, ur ql 1+(A) Negative CERNER CH Comment:Testing performed by : [address] [address] Glucose, ur ql Negative Negative CERNER CH Comment:Testing performed by : [address] [address] Ketones, ur Negative Negative CERNER CH Comment:Testing performed by : [address] [address] Bilirubin, ur Negative Negative CERNER CH Comment:Testing performed by : [address] [address] Blood, ur Negative Negative CERNER CH Comment:Testing performed by : [address] [address] Urobilinogen, ur <2.0 <2.0 mg/dL [place] Comment:Testing performed by : [facility], [address] [place] [address]., [address] Nitrite, ur Negative Negative [place] Comment:Testing performed by : [facility], [address] [place] [address]., [address] Leukocyte esterase, ur Negative Negative [place] Comment:Testing performed by : [address] [address] UA reflex comment Reflex to microscopic UA will be performed. [place] Comment:Testing performed by : [facility], [address] [place] [address]., [address] Urine, clean voided 02/24/2025 10:54 AM CDT 02/24/2025 5:41 PM CDT Miriam Deleon MEDIA RELATIONS INTERN LAB MICROBIOLOGY - GENERAL ORDER AZIZA Final Result Performing Organization Address [facility]/ZIP Co de Phone Number [place] [facility]33 [facility] Department [place] [address] * Thyroid Function [place] (02/24/2025 10:54 AM CDT) TSH 2.12 0.30 - 4.20 mcIUnit/mL Comment:Testing performed by : [facility], [address] [place] [address]., [address] Blood 02/24/2025 10:5 4 AM CDT 02/24/2025 5:41 PM CDT Miriam Deleon LAB BLOOD ORDERABLES Final Resul t Performing Organization Address City/[facility]/ZIP Co de Phone Number [place] [address] [facility] Department [place] [address] * (ABNORMAL) Hemoglobin A1c (02/24/2025 10:54 AM CDT) Hgb A1C 7.1(H) 4.0 - 5.6 % Comment:Testing performed by : [address] [address] Estimated Average Glucose 157 mg/dL [place] Comment: The ADA recommends reporting an estimated Average Glucose (eAG) with all Hemoglobin A1c results using the equation derived from a study of 507 normal and diabetic adults. Minority populations were underrepresented and children were not included. (Diabetes Care 31:7544-9697, 2008). The eAG is not equivalent to a fasting glucose. Testing performed by: [address] [address] Blood 02/24/2025 10:5 4 AM CDT 02/24/2025 5:41 PM CDT us Miriam Deleon NP LAB BLOOD ORDERABLES Final Resul t Performing Organization Address [facility] Co de Phone Number [place] [facility] Department [place] [address] * CRP (acute phase) (02/24/2025 10:54 AM CDT) CRP 3.7 <=10.0 mg/L Comment:Testing performed by : [facility], [address] [place] [address]., [address] Blood 02/24/2025 10:5 4 AM CDT 02/24/2025 5:41 PM CDT us Anila Patino MD LAB BLOOD ORDERABLES Final Result Performing Organization Address [facility] Co de Phone Number [place] [address] [address] Department [place] [address] * Erythrocyte sedimentation rate (02/24/2025 10:54 AM CDT) Erythrocyte sedimentation rate 15 1 - 30 mm/hr Comment:Testing performed by : [address] [address] Blood 02/24/2025 10:5 4 AM CDT 02/24/2025 5:41 PM CDT us Anila Patino MD LAB BLOOD ORDERABLES Final Result Performing Organization Address City/[facility] Co de Phone Number [place] [address] [address] [facility] [place] [address] * TSH (02/24/2025 10:54 AM CDT) Pathologist [facility] Thyroid Stimulating Hormone 2.12 0.30 - 4.20 mcIUnit/mL Comment:Testing performed by : [facility], [address] [place] [address]., [address] Blood 02/24/2025 10:5 4 AM CDT 02/24/2025 5:41 PM CDT us Anila Patino MD LAB BLOOD ORDERABLES Final Result Performing Organization Address City/[facility]/ZIP Co de Phone Number [place] [address] [facility] [place] [address] * T4, free (02/24/2025 10:54 AM CDT) Pathologist [facility] Free T4 1.13 0.90 - 1.70 ng/dL Comment:Testing performed by : [facility], [address] [place] [address]., [address] Blood 02/24/2025 10:5 4 AM CDT 02/24/2025 5:41 PM CDT us Anila Patino MD LAB BLOOD ORDERABLES Final Result Performing Organization Address City/[facility]/ZIP Co de Phone Number [place] [address] [address] Department [place] [address] * (ABNORMAL) CBC with auto differential (02/24/2025 10:54 AM CDT) Pathologist [facility] WBC 16.33(H) 3.80 - 9.90 K/cumm Comment:Testing performed by : [address] [address] Hgb 12.8 11.9 - 15.5 g/dL [place] Comment:Testing performed by : [address] [address] Hct 40.1 35.6 - 45.5 % [place] Comment:Testing performed by : [facility] [address] [place] [address]., [address] Plt 318 150 - 400 K/cumm C[facility] CH Comment:Testing performed by : [facility], [address] [place] [address], [address] MPV 10.0 9.1 - 12.3 fL C[facility] CH Comment:Testing performed by : [facility], [address] [place] [address], [address] RBC 4.21 3.90 - 5.20 M/cumm CERNER CH Comment:Testing performed by : [facility], [address] [place] [address], [address] MCV 95.2 81.3 - 96.4 fL C[facility]ER CH Comment:Testing performed by : [address], [address] MCH 30.4 27.1 - 33.3 pg CERNER CH Comment:Testing performed by : [address], [address] MCHC 31.9(L) 32.3 - 35.7 g/dL CERNER CH Comment:Testing performed by : [facility], [address] [place] [address], [address] RDW CV 13.8 11.1 - 14.9 % C[facility] CH Comment:Testing performed by : [address], [address] RDW SD 48.0 35.7 - 48.1 fL C[facility] CH Comment:Testing performed by : [address], [address] NRBC abs 0.00 0.00 - 0.01 K/cumm CERNER CH Comment:Testing performed by : [address], [address] Blood 02/24/2025 10:5 4 AM CDT 02/24/2025 5:41 PM CDT Anila Patino MD LAB BLOOD ORDERABLES Final Result [address] Department [place] [address] * Comprehensive metabolic panel (02/24/2025 10:54 AM CDT) Sodium 138 135 - 145 mmol/L Comment:Testing performed by : [facility], [address] [place] [address]., [address] Potassium, pl 3.7 3.3 - 4.9 mmol/L C[facility]ER CH Comment:Testing performed by : [address] [address] Chloride 98 97 - 110 mmol/L C[facility]ER CH Comment:Testing performed by : [address] [address] CO2 28 22 - 32 mmol/L C[facility] CH Comment:Testing performed by : [address], [address] Anion gap 12 2 - 15 mmol/L CERNER CH Comment:Testing performed by : [facility], [address] [place] [address]., [address] BUN 14 6 - 25 mg/dL CERNER CH Comment:Testing performed by : [address], [address] Creatinine 0.64 0.60 - 1.10 mg/dL CERNER CH Comment:Testing performed by : [address], [address] Glucose 127 70 - 199 mg/dL CERNER Comment: Interpretive Data Fasting glucose >/= 126 mg/dl is diagnostic for diabetes. Fasting is defined as no caloric intake for at least 8 hours. Fasting glucose between 100 mg/dl to 125 mg/dl is diagnostic of prediabetes. In a patient with classic symptoms of hyperglycemia or hyperglycemic crisis, a random glucose >/= 200 mg/dl is diagnostic for diabetes. In the absence of unequivocal hyperglycemia, results should be confirmed by repeat testing. The classification and Diagnosis of Diabetes Diabetes Care 2021; 46: S19-S40. Current interpretive data was last revised 2022. Testing performed by: [address] [address] Calcium 9.6 8.5 - 10.3 mg/dL CERNER CH Comment:Testing performed by : [address], [address] Bilirubin, total 0.3 0.1 - 1.2 mg/dL CERNER CH Comment:Testing performed by : [address] [address] Protein, pl 6.7 6.5 - 8.5 g/dL CERNER CH Comment:Testing performed by : [address] [address] Albumin 3.9 3.5 - 5.0 g/dL CERNER CH Comment:Testing performed by : [address] [address] Alk phos 71 40 - 130 Units/L CERNER CH Comment:Testing performed by : [address], [address] ALT 37 7 - 45 Units/L CERNER CH Comment:Testing performed by : [address], [address] AST 39 10 - 45 Units/L CERNER CH Comment:Testing performed by : [address], [address] Blood 02/24/2025 10:5 4 AM CDT 02/24/2025 5:41 PM CDT us Anila Patino MD LAB BLOOD ORDERABLES Final Result [address] Department [place] [address] * (ABNORMAL) Lipid panel (02/24/2025 10:54 AM CDT) Cholesterol 134 30 - 199 mg/dL Comment: Interpretive Data Ages < or = 19 years Acceptable: <170 mg/dL Borderline high: 170-199 mg/dL High: >or= 200 mg/dL Ages > or = 20 years Desirable: <200 mg/dL Borderline high: 200-239 mg/dL High: >or= 240 mg/dL Literature References: 1. Expert Panel on Integrated Guidelines for Cardiovascular Health and Risk Reduction in Children and Adolescents. Pediatrics 2011;128:S213 2. NCEP Expert Panel. Circulation 2004;110:227 Current Interpretive Data was last revised on 2018. Testing performed by: [address], [address] Triglycerides 264(H) <=149 mg/dL [place] Comment: Interpretive Data Ages < or = 9 years Acceptable: <75 mg/dL Borderline high: 75-99 mg/dL High: >or= 100 mg/dL Ages 10 to 20 years Acceptable: <90 mg/dL Borderline high: 90-129 mg/dL High: >or= 130 mg/dL Ages > or = 20 years Desirable: <150 mg/dL Borderline high: 150-199 mg/dL High: 200-499 mg/dL Very high: >or= 499 mg/dL Literature References: 1. Expert Panel on Integrated Guidelines for Cardiovascular Health and Risk Reduction in Children and Adolescents. Pediatrics 2011;128:S213 2. NCEP Expert Panel. Circulation 2004;110:227 Current Interpretive Data was last revised on 2018. Testing performed by: [facility], [address] [place] [address]., [address] HDL 38(L) >=40 mg/dL [place] Comment: Interpretive Data Ages < or = 19 years Acceptable: >45 mg/dL Borderline low: 40-45 mg/dL Low: <40 mg/dL Ages > or = 20 years Desirable: >or= 60 mg/dL Low: <40 mg/dL Literature References: 1. Expert Panel on Integrated Guidelines for Cardiovascular Health and Risk Reduction in Children and Adolescents. Pediatrics 2011;128:S213 2. NCEP Expert Panel. Circulation 2004;110:227 Current Interpretive Data was last revised on 2018. Testing performed by: [facility], [address] [place] [address]., [address] LDL, calculated 54 <=129 mg/dL [place] Comment: Interpretive Data Ages < or = 19 years Acceptable: <110 mg/dL Borderline high: 110-129 mg/dL High: >or= 130 mg/dL Ages > or = 20 years Optimal: <100 mg/dL Near optimal: 100-129 mg/dL Borderline high: 130-159 mg/dL High: >160 mg/dL Calculated using the Sherman LDL-C estimating equation. This equation was implemented on 2024. Prior to this date LDL-C was estimated using the Friedewald equation. Literature References: 1. Expert Panel on Integrated Guidelines for Cardiovascular Health and Risk Reduction in Children and Adolescents. Pediatrics 2011;128:S213 2. NCEP Expert Panel. Circulation 2004;110:[address] M et al. [place] Cardiol. 2020 October 14;5(5):540-548. doi: 10.1001/jamacardio.2020.0013 Current Interpretive Data was last revised on 2024. Testing performed by: [address] [address] Non-HDL Cholesterol 96 mg/dL [place] Comment: Interpretive Data Ages < or = 19 years Acceptable: <120 mg/dL Borderline high: 120-144 mg/dL High: >145 mg/dL Ages > or = 20 years When triglycerides are >200 mg/dL, Non-HDL cholesterol is a secondary target of therapy with treatment goals that are 30 mg/dL greater than the LDL cholesterol target. Literature References: 1. Expert Panel on Integrated Guidelines for Cardiovascular Health and Risk Reduction in Children and Adolescents. Pediatrics 2011;128:S213 2. NCEP Expert Panel. Circulation 2004;110:227 Current Interpretive Data was last revised on 2018. Testing performed by: [address] [address] Chol/HDL ratio 4 [place] Comment:Testing performed by : [address] [address] Blood 02/24/2025 10:5 4 AM CDT 02/24/2025 5:41 PM CDT Anila Patino MD LAB BLOOD ORDERABLES Final Result Performing Organization Address City/State/[facility] Co de Phone Number [facility] [address] [facility] [place] [address] documented in this encounter Visit Diagnoses Diagnosis Rheumatoid arthritis involving multiple sites with positive rheumatoid factor (HCC) Benign hypertension Essential hypertension, benign Medication monitoring encounter Encounter for therapeutic drug monitoring Ischemic heart disease Other specified forms of chronic ischemic heart disease Essential (primary) hypertension Unspecified essential hypertension Hyperglycemia Other abnormal glucose Dysuria SSS (sick sinus syndrome) (HCC) Sinoatrial node dysfunction Cardiac pacemaker in situ documented in this encounter Care Teams Glass Artist Relationship Specialty Start Date End Date Anila Patino MD PCP - General 09/13/16 Salomon Medrano MD [address] [facility] [address] [place] [address] Rheumatology 01/02/17 Rosalinda Looney MD [address] [facility] [address] [place] [address] Psychiatry 01/02/17 Lit Singer MD [address] [facility] [address] [place] [address] Radiation Oncology 01/02/17 Johan Marti MD [address] [facility] [address] [place] [address] Neurosurgery 01/02/17 Tino Still MD [address] [place] [address] DR BRIAN Eagle [address] [address] Surgeon Orthopedic Surgery 09/19/17 Matt Richardson DO [address] [place] [address] DR BRIAN Eagle [address] [address] Consulting Physician Gastroenterology 12/10/19 Yasmine Yanes MD [address] [place] [address] DR BRIAN Eagle [facility] [address] [place] [address] Consulting Physician Cardiology 07/23/21 Hero Jackman MD [address] [place] [address] NEUROLOGY SLEEP [facility], [address] [address] Consulting Physician Sleep Medicine 07/22/23 Ronal Jackson MD [address] [place] [address] Consulting Physician Pulmonary Disease 02/19/24 Kristen Perez MD [address] [place] [address] Anesthesiologist Pain Management 02/19/24 Ryan Sanders MD [address] [address] Consulting Physician Urology 05/04/22 Geovanna Alvarenga DPM [address] [place] [address] Consulting Physician Foot and Ankle Surg 05/04/24 Ariadne Shook NP [address] [place] [address] Nurse Practitioner Neurology 06/01/24 Tabby Light, CARINA [address] [place] [address] [employer] 07/05/24 Junior Tobin MD [address] [address] Consulting Physician Urology 07/21/24 documented as of this encounter
[2025-02-25] VITALS (15 sets, daily range): BP systolic 120–139; BP diastolic 63–102; PULSE 87–98; RESP 14–24; TEMP 36.2–37.1; O2SAT 92–99; BMI 33.6
--- NOTE | ~2025-02-25 | CT_ITS ---
EXAMINATION: CT abdomen pelvis w con DATE: 02/25/2025 11:45 INDICATION: Left lower quadrant abdominal pain TECHNIQUE: Computed tomography (CT) of the abdomen and pelvis was performed with 100 mL Omnipaque-350 intravenous contrast. Automated exposure control and iterative reconstruction technique were employed. The dose-length product was 1079.82 mGy-cm. COMPARISON: CT dated 02/14/2025 FINDINGS: Elevation of the left hemidiaphragm with left basilar atelectasis. There is additional severe dependent and basilar atelectasis in the visualized right lower lung. Cardiomegaly. No pericardial or pleural effusion. Atherosclerotic coronary artery calcifications. Dual-lead cardiac pacemaker with lead tips at the right atrial appendage and at the right ventricle. Approximately 1.5 cm ill- defined hyperenhancing focus at the periphery of the right hepatic lobe. 3.3 cm cyst along the caudal margin of the right hepatic lobe. Common bile duct is dilated to 1.5 cm which may relate to prior cholecystectomy with surgical clips at the gallbladder fossa. No intrahepatic biliary ductal dilation. Spleen, pancreas, bilateral adrenal glands and kidneys are normal. There are few scattered clonic diverticula. There is mild inflammatory stranding surrounding a diverticulum along the proximal sigmoid colon consistent with diverticulitis. No bowel obstruction. The appendix is not visualized. No pericecal inflammatory change to suggest acute appendicitis.. Chronic 3-4 mm phlebolith alongside the distal left ureter which is unchanged since radiographs dated 05/05/2020. Bladder is normal. There is pelvic floor relaxation. No free intraperitoneal gas or fluid. No pathologically enlarged abdominal or pelvic lymphadenopathy. Severe lumbar spondylosis with instrumented combined anterior and posterior spinal fusion from L3-S1. Chronic appearing T12 and T8 compression fractures with mild anterior vertebral body height loss. IMPRESSION: 1. Mild diverticulitis along the left sigmoid colon. 2. Indeterminate 1.5 cm hyperenhancing focus in the right hepatic lobe which could relate to transient hepatic attenuation difference or neoplasm. Recommend follow-up pre and postcontrast MRI for further evaluation when clinically appropriate. 3. Dilation the common bile duct likely related to prior cholecystectomy. Correlate with liver function tests. If clinically indicated this could be further evaluated with MRI/MRCP. Reviewed, dictated and finalized at location A. IMPRESSION: 1. Mild diverticulitis along the left sigmoid colon. 2. Indeterminate 1.5 cm hyperenhancing focus in the right hepatic lobe which co uld relate to transient hepatic attenuation difference or neoplasm. Recommend f ollow-up pre and postcontrast MRI for further evaluation when clinically approp riate. 3. Dilation the common bile duct likely related to prior cholecystectomy. Corre late with liver function tests. If clinically indicated this could be further e valuated with MRI/MRCP.
--- NOTE | ~2025-02-25 | CT_ITS ---
EXAMINATION: CT abdomen pelvis w con DATE: 03/01/2025 13:18 INDICATION: Abdominal pain TECHNIQUE: Computed tomography (CT) of the abdomen and pelvis was performed with 100 mL Omnipaque-350 intravenous contrast. Automated exposure control and iterative reconstruction technique were employed. The dose-length product was 551.35 mGy-cm. COMPARISON: 02/25/2025 FINDINGS: Unchanged compressive atelectasis along the elevated left hemidiaphragm. Mild right basilar atelectasis. Cardiomegaly. No pericardial or pleural effusion. Atherosclerotic coronary artery calcifications. Dual-lead cardiac pacemaker with lead tips at the right atrial appendage and at the right ventricle. Again seen is an approximately 1.3 cm ill-defined hyperenhancing focus at the periphery of the right hepatic lobe. Unchanged 3.3 cm cyst along the caudal margin of the right hepatic lobe. Common bile duct is dilated to 1.3 cm which may relate to prior cholecystectomy with surgical clips at the gallbladder fossa. No intrahepatic biliary ductal dilation. Spleen, pancreas, bilateral adrenal glands and kidneys are normal. There are few scattered colonic diverticula. Density is mild diverticulosis with decrease in the now minimal stranding surrounding a diverticulum at the proximal sigmoid colon consistent with resolving diverticulitis. No bowel obstruction. The appendix is not visualized. No pericecal inflammatory change to suggest acute appendicitis. Chronic 3-4 mm phlebolith alongside the distal left ureter which is unchanged since radiographs dated 05/05/2020. Bladder is normal. There is pelvic floor relaxation. No free intraperitoneal gas or fluid. No pathologically enlarged abdominal or pelvic lymphadenopathy. Severe lumbar spondylosis with instrumented combined anterior and posterior spinal fusion from L3-S1. Chronic appearing T12 and T8 compression fractures with mild anterior vertebral body height loss. Old healed intertrochanteric fracture the proximal femur with antegrade intramedullary melinda and femoral neck screw fixation. IMPRESSION: 1. Decrease in now minimal stranding surrounding a diverticulum at the proximal sigmoid colon consistent with resolving diverticulitis. No new acute intra- abdominal/pelvic process. 2. Again seen is an indeterminate 1.3 cm hyperenhancing focus in the right hepatic lobe. Absence of known primary malignancy or known liver disease this most likely represents a hemangioma or focal nodular hyperplasia. Consider follow-up pre and post contrast MRI for further evaluation. 3. Persistent mild dilation the common bile duct which measures up to 1.3 cm without evident obstructing stone or mass most likely related to prior cholecystectomy. Reviewed, dictated and finalized at location A. IMPRESSION: 1. Decrease in now minimal stranding surrounding a diverticulum at the proximal sigmoid colon consistent with resolving diverticulitis. No new acute intra-abd ominal/pelvic process. 2. Again seen is an indeterminate 1.3 cm hyperenhancing focus in the right hepa tic lobe. Absence of known primary malignancy or known liver disease this most likely represents a hemangioma or focal nodular hyperplasia. Consider follow-up pre and post contrast MRI for further evaluation. 3. Persistent mild dilation the common bile duct which measures up to 1.3 cm wi thout evident obstructing stone or mass most likely related to prior cholecyste ctomy.
--- NOTE | ~2025-02-25 | XR_ITS ---
EXAMINATION: XR chest 2V 02/25/2025 12:03 INDICATION: COPD TECHNIQUE:A sitting AP frontal image of the chest was obtained COMPARISON: 02/14/2025 FINDINGS: Left-sided generator with leads. Cardiomediastinal silhouette is enlarged, unchanged. Moderate elevation of the left hemidiaphragm, unchanged. No pneumothorax. No pleural effusion. Small interstitial opacities in the visualized lung herrmann. Lung volumes are low. IMPRESSION: 1: Small interstitial opacities in the visualized lung herrmann. Differential includes chronic interstitial changes, interstitial edema or interstitial pneumonia. 2. Lung volumes are low. If symptoms persist or worsen, consider a short-term follow-up study or additional imaging for further assessment. Reviewed, dictated and finalized at location Q. IMPRESSION: 1: Small interstitial opacities in the visualized lung herrmann. Differential inc ludes chronic interstitial changes, interstitial edema or interstitial pneumoni a. 2. Lung volumes are low. If symptoms persist or worsen, consider a short-term follow-up study or additio nal imaging for further assessment.
--- NOTE | ~2025-02-25 | US_ITS ---
EXAMINATION: US right upper quadrant DATE: 02/26/2025 16:21 INDICATION: Liver lesion. TECHNIQUE: Multiple grayscale and Doppler ultrasound images of the abdomen were obtained. COMPARISON: CT abdomen and pelvis 02/25/2025, 02/14/2025 FINDINGS: The visualized portions of the head and body of the pancreas are normal. There is a 3.0 cm cyst in the liver. There is normal flow in main portal vein. The gallbladder is absent. The common duct is normal and measures 10 mm. IMPRESSION: 1. The hyperenhancing mass in right hepatic lobe seen by CT is not visualized. In the absence of known malignancy, this finding is likely a hemangioma or focal nodular hyperplasia. Reviewed, dictated and finalized at location K. IMPRESSION: 1. The hyperenhancing mass in right hepatic lobe seen by CT is not visualized. In the absence of known malignancy, this finding is likely a hemangioma or foca l nodular hyperplasia.
--- NOTE | 2025-02-25 10:23 | ED.SOB ---
HPI - SOB/Dyspnea General Chief Complaint: Shortness of Breath/Dyspnea Stated Complaint: SOB Time Seen by Provider: 02/25/25 10:23 Source: patient and EMS Mode of arrival: EMS Limitations: no limitations History of Present Illness HPI Narrative: PATIENT WAS AT [facility] TODAY, GOT OUT OF HER CHAIR TO CHECK IN, START SHAKING ALL OVER, COULD NOT STAND AND WAS ASSISTED BY HER TO SIT DOWN ON THE CHAIR, REPORT PATIENT WAS ALMOST PASSING OUT. THE ABOVE SYMPTOM RESOLVED IN FEW MINUTES AFTER SITTING DOWN. IN THE ED PATIENT IS ASYMPTOMATIC. HISTORY OF DIVERTICULITIS 2 WEEKS AGO, CURRENTLY ON THE 2ND COURSE OF ANTIBIOTIC. IN THE ED PATIENT DENIES ANY FEVER, CHILLS, NAUSEA, VOMITING, SHORTNESS OF BREATH, CHEST PAIN, BACK PAIN STILL HAVING ABDOMINAL PAIN. PATIENT ON CHRONIC 5 L NORMAL SALINE Related Data Home Medications ?Medication ?Instructions ?Recorded ?Confirmed ?Last Taken ?Type albuterol sulfate 90 mcg/actuation 2 puff inhalation Q4H PRN 05/05/20 09/28/21 05/08/20 02:30 History aerosol inhaler SHORTNESS OF BREATH amlodipine 5 mg tablet 5 mg PO DAILY 05/05/20 09/28/21 05/10/20 09:00 History atorvastatin 20 mg tablet 20 mg PO DAILY 05/05/20 09/28/21 Unknown History azelastine 137 mcg (0.1 %) nasal 137 mcg intranasal BID 05/05/20 09/28/21 05/10/20 09:00 History spray buspirone 10 mg tablet 10 mg PO TID 05/05/20 09/28/21 05/10/20 12:30 History clonazepam 0.5 mg tablet 0.5 mg PO DAILY PRN Anxiety 05/05/20 09/28/21 05/09/20 20:20 History clotrimazole 10 mg rocío 10 mg PO QID 05/05/20 09/28/21 05/10/20 12:35 History cyclobenzaprine 5 mg tablet 5 mg PO HS 05/05/20 09/28/21 05/09/20 20:20 History escitalopram oxalate 20 mg tablet 20 mg PO DAILY 05/05/20 05/10/20 05/10/20 09:00 History fluticasone propionate 50 2 spray intranasal DAILY 05/05/20 09/28/21 05/10/20 09:00 History mcg/actuation nasal spray,suspension indapamide 1.25 mg tablet 2.5 mg PO DAILY 05/05/20 09/28/21 05/10/20 09:00 History montelukast 10 mg tablet 10 mg PO HS 05/05/20 09/28/21 05/09/20 20:20 History pramipexole 1.5 mg tablet 4.5 mg PO HS 05/05/20 09/28/21 05/09/20 20:20 History trazodone 50 mg tablet 300 mg PO HS 05/05/20 10/10/21 05/09/20 20:20 History Lactobacillus reuteri 100 million 1 cell PO DAILY 05/06/20 09/28/21 05/10/20 09:00 History cell chewable tablet adalimumab 40 mg/0.4 mL 40 mg subcut [id number] 05/06/20 05/10/20 Unknown History subcutaneous pen kit (Humira(CF) Pen) cholecalciferol (vitamin D3) 10 10 mcg PO DAILY 05/06/20 09/28/21 05/10/20 09:00 History mcg (400 unit) tablet (Vitamin D3) ipratropium 0.5 mg-albuterol 3 mg 3 ml inhalation QID 05/06/20 09/28/21 Unknown History (2.5 mg base)/3 mL nebulization soln multivitamin with minerals 1 tablet PO DAILY 05/06/20 09/28/21 05/10/20 09:00 History prednisone 5 mg tablet 5 mg PO BID 05/06/20 09/28/21 Unknown History aspirin 81 mg tablet,delayed 81 mg PO DAILY 09/28/21 09/28/21 09/28/21 History release clopidogrel 75 mg tablet (Plavix) 75 mg DAILY 09/28/21 09/28/21 09/28/21 History albuterol sulfate 2.5 mg/0.5 mL 2.5 mg inhalation DAILY 10/10/21 10/10/21 Unknown History solution for nebulization calcium carbonate mg PO DAILY 10/10/21 Unknown History fluticasone furoate 200 1 inh inhalation DAILY 10/10/21 10/10/21 Unknown History mcg/actuation blister powder for inhalation fluticasone propionate 50 1 spray intranasal DAILY 10/10/21 10/10/21 Unknown History mcg/actuation nasal spray,suspension furosemide 40 mg tablet 40 mg PO BID 10/10/21 10/10/21 Unknown History potassium chloride 20 mEq 20 meq PO DAILY 10/10/21 10/10/21 Unknown History tablet,extended release tizanidine 4 mg capsule 4 mg PO HS PRN Muscle Spasm 10/10/21 10/10/21 Unknown History hydroxychloroquine 200 mg tablet 200 mg PO BID 11/13/21 11/13/21 Unknown History Allergies Allergy/AdvReac Type Severity Reaction Status Date / Time Penicillins Allergy Unknown Verified 02/25/25 10:19 scopolamine Allergy Unknown Verified 02/25/25 10:19 Sulfa (Sulfonamide Allergy Unknown Verified 02/25/25 10:19 Antibiotics) codeine AdvReac Mild Nausea Verified 02/25/25 10:19 Review of Systems Review of Systems: All systems reviewed & are unremarkable except as noted in HPI and below PMFSH Past Medical History Medical History Obstructive sleep apnea COPD (chronic obstructive pulmonary disease) Chronic respiratory failure GERD (gastroesophageal reflux disease) Restless leg syndrome Hyperlipidemia Rheumatoid arthritis Hypertension Surgical History Surgical History Previous back surgery H/O cervical spine surgery History of knee replacement Family History Family History Sibling Heart attack Lung cancer Chronic obstructive pulmonary disease Mother Hypertension Father Heart attack Hypertension Throat cancer Other Acute myocardial infarction Social History Social History Smoking status: Never smoker Alcohol intake: unknown Drinks per week: 1 Substance use: unknown Substance use type: does not use Gender identity (if verbalized by the patient): Female Sexual Orientation (if Verbalized by the Patient): Straight or Heterosexual Spiritual care concerns: No Exam Narrative: GENERAL APPEARANCE: WELL-DEVELOPED, WELL-NOURISHED, NASAL CANNULA ON ON CHRONIC 5 L SKIN: NORMAL COLOR HEAD: NORMOCEPHALIC, NONTRAUMATIC EYES: CLEAR CONJUNCTIVA ENT: OROPHARYNX NORMAL, EARS NORMAL, NOSE NORMAL NECK: SUPPLE, NONTENDER CHEST AND RESPIRATORY: AIRWAY PATENT, NO RESPIRATORY DISTRESS, NO ACCESSORY MUSCLE USE HEART: REGULAR RATE/RHYTHM ABDOMEN: SOFT, NONTENDER, NO ORGANOMEGALY, QUIET BOWEL SOUNDS VASCULAR: NORMAL PERIPHERAL PULSES, NORMAL CAPILLARY REFILL. MUSCULOSKELETAL: NORMAL RANGE OF MOTION, NONTENDER BACK RIGHT FOOT EXAM SHOWING CALLUS AT THE BOTTOM OF THE BIG TOE, FEW SUPERFICIAL ABRASION, NO ERYTHEMA, NO DISCHARGE, NO WARMTH NEUROLOGIC: ALERT AND ORIENTED ?3, PRODUCTION SOLDERER IS NORMAL TESTED, NO GROSS MOTOR DEFICIT Course Vital Signs Vital signs: Vital Signs Temperature 36.6 C 02/25/25 09:58 Pulse Rate 89 02/25/25 09:58 Respiratory Rate 24 H 02/25/25 09:58 Blood Pressure 139/86 02/25/25 09:58 Pulse Oximetry 95 02/25/25 09:58 Oxygen Delivery Nasal Cannula 02/25/25 09:58 Oxygen Flow Rate 5 02/25/25 09:58 Temperature 36.5 C 02/25/25 10:18 Pulse Rate 93 02/25/25 12:55 Respiratory Rate 14 02/25/25 12:55 Blood Pressure 131/63 02/25/25 12:55 Pulse Oximetry 97 02/25/25 12:55 Oxygen Delivery Nasal Cannula 02/25/25 10:13 Oxygen Flow Rate 5 02/25/25 10:13 MDM - SOB/Dyspnea MDM Narrative Medical decision making narrative: PATIENT CAME TO THE ED WITH HER WITH SUDDEN ONSET OF SHAKING, HOSPITAL REPORT THAT PATIENT SEEMS LIKE PASSING OUT WHEN STANDING. VITAL SIGNS ARE STABLE PHYSICAL EXAMINATION SHOWING NASAL CANNULA 5 L ON, SEMI SLEEPING, SLIGHT DIMINUTION OF AIR ENTRY BILATERALLY DIFFERENTIAL DIAGNOSIS INCLUDE INFECTION CAUSING CHILLS, PNEUMONIA, URINARY TRACT INFECTION, ELECTROLYTE IMBALANCE, DEHYDRATION, ORTHOSTATIC HYPOTENSION, ANXIETY/DEPRESSION LIKE SYMPTOMS BLOOD WORKUP TODAY INCLUDES CBC, CMP, BLOOD CULTURE, LACTIC ACID, SHOWED WBC 13.1, C-REACTIVE PROTEIN 2.3, OTHERWISE WITHIN NORMAL LIMIT PATIENT TESTED NEGATIVE FOR COVID FLU RSV URINALYSIS SHOWED NO EVIDENCE OF INFECTION CT ABDOMEN AND PELVIS WITH IV CONTRAST SHOWED MILD DIVERTICULITIS, CHEST X-RAY SHOWED POSSIBLE PNEUMONIA ADMIT TO HOSPITALIST Differential Diagnosis Differential diagnosis: Likely other ( ABOVE) Medical Records Attestation: I reviewed the patient's medical records. Lab Data Attestation: I reviewed the patient's lab results. 02/25/25 11:03 02/25/25 11:03 Labs: Lab Results 02/25/25 02/25/25 Range/Units 11:03 11:22 WBC 13.1 H (4.5-10.0) K/mm3 RBC 3.94 L (4.2-5.4) M/mm3 Hgb 11.5 L (12.0-15.0) g/dL Hct 37.2 (37.0-47.0) % MCV 94.4 (80-100) fl MCH 29.2 (26-34) pg MCHC 30.9 L (32-36) g/dl RDW 13.6 (11.5-14.5) % Plt Count 238 (150-375) k/mm3 MPV 9.0 (7.4-10.4) fl Immature Gran % (Auto) 0.7 H (0-0.5) % Neut % (Auto) 85.6 H (45.5-73.1) % Lymph % (Auto) 7.2 L (18.3-44.2) % [place] % (Auto) 5.8 (2.6-8.5) % Eos % (Auto) 0.3 (0-4.4) % Baso % (Auto) 0.4 (0.2-1.2) % Lymph # (Auto) 0.94 (0.9-3.2) K/mm3 [place] # (Auto) 0.8 H (0.1-0.6) K/mm3 Eos # (Auto) 0.0 (0-0.3) K/mm3 Baso # (Auto) 0.1 (0.0-0.1) K/mm3 Abs Immat Gran (auto) 0.09 H (0.00-0.031) K/mm3 Absolute Neuts (auto) 11.3 H (1.3-6.7) K/mm3 Absolute Nucleated RBC 0.000 (0.0-0.012) K/mm3 Nucleated RBC % 0.0 (0.0-0.2) % PT 13.4 (11.1-14.7) Seconds INR 1.0 APTT 31.5 (22.3-36.8) Seconds Sodium 139 (137-145) mmol/L Potassium 3.4 (3.4-5.0) mmol/L Chloride 101 (98-107) mmol/L Carbon Dioxide 31 H (22-30) mmol/L Anion Gap 7 (4-12) mmol/L BUN 13 D (7-17) mg/dL Creatinine 0.47 L (0.7-1.0) mg/dL Estim Creat Clear Calc 80 ml/min Estimated GFR > 60 (59 - ) Glucose 147 H (65-110) mg/dL Lactic Acid 2.0 (0.7-2.0) mmol/L Calcium 8.6 (8.4-10.2) mg/dL Total Bilirubin 0.3 (0.2-1.3) mg/dL AST 38 H (14-36) U/L ALT 41 H (6-35) U/L Alkaline Phosphatase 88 (38-126) U/L Troponin I < 0.012 (0.000-0.034) ng/mL C-Reactive Protein 2.3 H (<1.0) mg/dL Total Protein 6.9 (6.3-8.2) g/dL Albumin 3.9 (3.5-5.1) g/dL Urine Color Yellow (Yellow) Urine Appearance Clear (Clear) Urine pH 5.5 (5.0-9.0) Ur Specific [place] 1.034 (1.001-1.035) Urine Protein 1+ H (Negative) mg/dL Urine Glucose (UA) Negative (Negative) mg/dL Urine Ketones Negative (Negative) mg/dL Ur Blood (Man) Negative (Negative) Urine Nitrate Negative (Negative) Urine Bilirubin Negative (Negative) Urine Urobilinogen 0.2 (<2.0) mg/dL Leukocyte Esterase Rfl Negative (Negative) KYLE/UL Urine RBC 0-2 (0-2) /hpf Urine WBC 0-5 (0-3) /hpf Ur Squamous Epith Cells None seen (Few) /hpf Urine Bacteria None seen /hpf Urine Casts 0-2 Influenza A (RT-PCR) Negative (Negative) Influenza B (RT-PCR) Negative (Negative) RSV (RT-PCR) Negative (Negative) SARS-CoV-2 RNA (RT-PCR) Negative (Negative) ABG Data ABG results: 02/25/25 11:18 Puncture Site Right radial ABG pH 7.415 ABG pCO2 41.7 ABG pO2 86.9 ABG PO2/FiO2 Ratio 2.17 ABG HCO3 26.1 H ABG O2 Saturation 96.7 ABG O2 Content 16.6 ABG Base Excess 1.4 A-a Gradient 150.3 Oxyhemoglobin 96.0 Total Hemoglobin 12.2 O2 Delivery Device Nasal cannula O2 Liters/Min 4.0 FiO2 35 Imaging Data Radiologist's impression: Impressions Abdomen/Pelvis CT 02/25/25 11:46 IMPRESSION: 1. Mild diverticulitis along the left sigmoid colon. 2. Indeterminate 1.5 cm hyperenhancing focus in the right hepatic lobe which could relate to transient hepatic attenuation difference or neoplasm. Recommend follow-up pre and postcontrast MRI for further evaluation when clinically appropriate. 3. Dilation the common bile duct likely related to prior cholecystectomy. Correlate with liver function tests. If clinically indicated this could be further evaluated with MRI/MRCP. Chest X-Ray 02/25/25 12:20 IMPRESSION: 1: Small interstitial opacities in the visualized lung herrmann. Differential includes chronic interstitial changes, interstitial edema or interstitial pneumonia. 2. Lung volumes are low. If symptoms persist or worsen, consider a short-term follow-up study or additional imaging for further assessment. Critical Care Time Critical Care Time Critical Care Time: Yes Total Critical Care Time: 30 Discharge Plan Discharge Clinical Impression: Pneumonia, Diverticulitis Patient Disposition: Still a Patient Condition: Stable Additional Instructions: ADMIT TO HOSPITALIST Patient Language: Czech Prescriptions: No Action clotrimazole 10 mg rocío 10 mg PO QID atorvastatin 20 mg tablet 20 mg PO DAILY Rx Instructions: HOLD trazodone 50 mg tablet 300 mg PO HS Rx Instructions: can take up to 6 tabs @ HS clonazepam 0.5 mg tablet 0.5 mg PO DAILY PRN (Reason: Anxiety) amlodipine 5 mg tablet 5 mg PO DAILY buspirone 10 mg tablet 10 mg PO TID indapamide 1.25 mg tablet 2.5 mg PO DAILY montelukast 10 mg tablet 10 mg PO HS azelastine 137 mcg (0.1 %) aerosol,spray 137 mcg INTRANASAL BID Rx Instructions: 2 SPRAYS BID albuterol sulfate 90 mcg/actuation HFA aerosol inhaler 2 puff INHALATION Q4H PRN (Reason: SHORTNESS OF BREATH) fluticasone propionate 50 mcg/actuation spray,suspension 2 spray intranasal DAILY Rx Instructions: 2 SPRAYS EACH NOSTRIL pramipexole 1.5 mg tablet 4.5 mg PO HS escitalopram oxalate 20 mg tablet 20 mg PO DAILY cyclobenzaprine 5 mg tablet 5 mg PO HS ipratropium-albuterol 0.5 mg-3 mg(2.5 mg base)/3 mL solution for nebulization 3 ml INHALATION QID Patient Comments: states she takes mostly 3 times per day multivitamin with minerals Tablet 1 tablet PO DAILY cholecalciferol (vitamin D3) [Vitamin D3] 10 mcg (400 unit) Tablet 10 mcg PO DAILY Lactobacillus reuteri 100 million cell Tablet,Chewable 1 cell PO DAILY Humira(CF) Pen 40 mg/0.4 mL pen injector kit 40 mg SUBCUT [id number] prednisone 5 mg tablet 5 mg PO BID Patient Comments: uses on ly for flare ups tramadol 50 mg tablet 50 mg PO BID Qty: 0 0RF Rx Instructions: up to x 3 per day acetaminophen 500 mg tablet 500 mg PO Q6H PRN (Reason: pain) Qty: 30 1RF Patient Comments: states she takes up to 3 times per day with her tramadol. ferrous sulfate 324 mg (65 mg iron) tablet,delayed release (DR/EC) 324 mg PO DAILY Qty: 30 0RF omeprazole 20 mg capsule,delayed release(DR/EC) 20 mg PO BID Qty: 0 0RF prednisone 50 mg tablet 50 mg PO DAILY Qty: 7 0RF doxycycline monohydrate 100 mg tablet 100 mg PO BID Qty: 10 0RF levofloxacin 750 mg tablet 750 mg PO DAILY Qty: 7 0RF ondansetron 4 mg tablet,disintegrating 4 mg PO Q8H Qty: 7 0RF hydrocodone-acetaminophen 5-325 mg tablet 1 tablet PO Q8H PRN (Reason: pain) Qty: 7 0RF metronidazole 500 mg tablet 500 mg PO Q8H 7 Days Qty: 21 0RF prednisone 50 mg tablet 50 mg PO DAILY Qty: 5 0RF clopidogrel [Plavix] 75 mg Tablet 75 mg DAILY aspirin [Aspir-81] 81 mg Tablet,Delayed Release (Dr/Ec) 81 mg PO DAILY furosemide 40 mg Tablet 40 mg PO BID albuterol sulfate 2.5 mg/0.5 mL Solution For Nebulization 2.5 mg INHALATION DAILY fluticasone furoate 200 mcg/actuation Blister With Device 1 inh INHALATION DAILY fluticasone propionate 50 mcg/actuation Anza,Suspension 1 spray INTRANASAL DAILY calcium carbonate [Calcitab 600] 600 mg calcium (1,500 mg) Tablet PO DAILY tizanidine 4 mg Capsule 4 mg PO HS MDD 4 mg PRN (Reason: Muscle Spasm) Rx Instructions: 0.5 of tab up to 1 full tab potassium chloride 20 mEq Tablet Extended Release 20 meq PO DAILY hydroxychloroquine 200 mg Tablet 200 mg PO BID Follow-up/Referrals: Carey,MD Anila [Primary Care Provider]
--- NOTE | 2025-02-25 10:42 | ECG_ITS ---
Test Date: 2025-02-25 10:11:02 Measurements Intervals Purcell Rate: 88 P: 4 IN: 168 QRS: -5 QRSD: 109 T: 44 QT: 393 QTc: 477 Interpretive Statements SINUS RHYTHM VOLTAGE CRITERIA FOR LVH [MEETS CRITERIA IN ONE OF: R(aVL), S(V1), R(V5), R(V5/V6)+S(V1)] NONSPECIFIC T-WAVE ABNORMALITY Compared to ECG 02/14/2025 18:08:35 T-wave abnormality now present Myocardial infarct finding no longer present Electronically Signed On 02-25-2025 15:40:15 CDT by Felix Valera M.D.
[2025-02-25] MEDS: SODIUM CHLORIDE 0.9% IV 1,000 ML 999 ML IV CONT (10:52)
[2025-02-25 11:14] LABS: Hematocrit 37.2 % (37.0-47.0); Hemoglobin 11.5 g/dL (12.0-15.0); Immature Granulocyte Percent A 0.7 % (0-0.5); Lymphocytes Absolute Auto 0.94 K/mm3 (0.9-3.2); Mean Corpuscular HGB Conc 30.9 g/dl (32-36); Mean Corpuscular Hemoglobin 29.2 pg (26-34); Mean Corpuscular Volume 94.4 fl (80-100); Nucleated Red Blood Cells Absolute Auto 0.000 K/mm3 (0.0-0.012); Nucleated Red Blood Cells Perc 0.0 % (0.0-0.2); Platelet Count Result 238 k/mm3 (150-375); Red Blood Count 3.94 M/mm3 (4.2-5.4); White Blood Count 13.1 K/mm3 (4.5-10.0)
--- OUTSIDE RECORDS SUMMARY | 2025-02-25 11:18 | XMS_ITS | Encounter Summary ---
Author Organization [facility] Address [address] [facility] [place] [address] Phone Care Team Providers Care Board Mill Supervisor Name Role Phone Anila Patino MD Primary Care Provider [phone] Tj Bonner MD Unavailable [phone] Srinath RodriguezM Unavailable [phone] Buster Xiong Unavailable Unavailable Barrington Yanez MD Unavailable Vannessa Nunez RN Unavailable Unavailcharito Quinn III, MD, Courtney Unavailable [phone] Haja Jones MD Unavailable [phone] Encounter Details Date Type Department Care Team (Late st Contact Info) Description 12/21/2020 [facility] Ad[facility] [address] [place] [address] Pema Gill MD [address] [address] Obstructive chronic bronchitis without exacerbation (HCC) (Primary [...] on file Sexual Orientation Not on file COVID-19 Exposure Response Date Recorded In the last month, have you been in contact with someone who was confirmed or suspected to have Coronavirus / COVID-19? No / Unsure 12/22/2020 12:13 PM CDT documented as of this encounter Plan of Treatment Upcoming Encounters Date Type Department Care Team (Late st Contact Info) Description 03/14/2025 11:30 AM CDT Office Visit [facility] [address] [place] [address] Haja Jones MD [address] [address] documented as of this encounter Results * IMMUNOGLOBULIN A (IGA) (12/22/2020 12:26 PM CDT) IMMUNOGLOBULIN A 221 69 - 517 mg/dL 12/22/2020 10:53 PM CDT [facility] Blood Venipuncture / Unknown 12/22/2020 12:26 PM CDT 12/22/2020 12:35 PM CDT us Pema Gill MD CHEMISTRY ORDERABLES Final Res ult [facility] [address] [place] [address], * IMMUNOGLOBULIN G (IGG) (12/22/2020 12:26 PM CDT) IMMUNOGLOBULIN G 1,069 552-1,631 mg/dL 12/22/2020 10:53 PM CDT [facility] Blood Venipuncture / Unknown 12/22/2020 12:26 PM CDT 12/22/2020 12:35 PM CDT us Pema Gill MD CHEMISTRY ORDERABLES Final Res ult Performing Organization Address City/[facility]/ZIP Co de Phone Number [facility] [address] [place] [address], [place] * IMMUNOGLOBULIN M (IGM) (12/22/2020 12:26 PM CDT) IMMUNOGLOBULIN M 94 33 - 293 mg/dL 12/22/2020 10:53 PM CDT [facility] Blood Venipuncture / Unknown 12/22/2020 12:26 PM CDT 12/22/2020 12:35 PM CDT us Pema Gill MD CHEMISTRY ORDERABLES Final Res ult Performing Organization Address City/[facility] Co de Phone Number [facility] [address] [place] [address], [place] documented in this encounter Visit Diagnoses Diagnosis Obstructive chronic bronchitis without exacerbation (HCC)- Primary Obstructive chronic bronchitis without exacerbation documented in this encounter Additional Health Concerns Infection Onset Date Last Indicated Resolved Time COVID - 19 06/20/2021 06/20/2021 06/20/2021 2:16 PM PIECE [facility]ER Respiratory Rule Out - RPA 06/21/2021 06/21/2021 0 06/21/2021 9:47 PM PIECE DYER COVID - 19 Confirmed 05/24/2022 05/24/202206/13/2 022 12:18 AM PIECE DYER COVID - 19 06/24/2023 06/24/2023 07/04/2023 12:1 6 AM PIECE DYER COVID - 19 06/30/2024 06/30/2024 06/30/2024 1:11 AM PIECE DYER C. difficile Rule-Out 07/01/2024 07/01/20242024 5:24 PM PIECE DYER ESBL 11/01/2024 11/01/2024 Assessment Noted Time PHQ-9 Depression Total Score: 1 10/18/19 10:30 AM CDT documented as of this encounter Care Teams Board Mill Supervisor Relationship Specialty Start Date End Date Anila Patino MD [address] [place] [address] PCP - General Internal Medicine 04/15/15 Tj Bonner MD [address] [place] [address] Consulting Physician Neurology 09/01/15 05/02/24 Srinath Rodriguez DPM [address] [place] [address] Podiatry 08/01/16 Buster Xiong [address] [facility] [place] [address] 08/01/16 Barrington Yanez MD [address] [facility] [place] [address] Consulting Physician Pulmonary Disease 09/13/16 Vannessa Nunez RN [place] [employer] Supervisor 10/17/20 03/12/21 Betty Quinn III, MD [address] [place] [address] Consulting Physician Urology 12/23/22 Haja Jones MD #[address] [address] Consulting Physician Urology 07/21/23 documented as of this encounter
--- OUTSIDE RECORDS SUMMARY | 2025-02-25 11:18 | XMS_ITS | Encounter Summary ---
Author Organization [facility] Address [address] [place] [address] Phone Care Team Providers Care Tip Scourer Name Role Phone Anila Patino MD Primary Care Provider [phone] Salomon Medrano MD Unavailable [phone] Rosalinda Looney MD Unavailable Barrington Yanez MD Unavailable Shaquille Blanco MD Unavailable Onesimo Magaña MD Unavailable Lit Singer MD Unavailable [phone] Johan Marti MD Unavailable Tino Still MD Unavailable Matthias Christianson MD Unavailable Matt Richardson DO Unavailable [phone] Pema Gill MD Unavailable [phone] Jus Patel MD Unavailable Haja Luciano MD Unavailable Yasmine Yanes MD Unavailable Yasmine Yanes MD Unavailable [phone] Samantha Mir RN Unavailable Unavailable Tabby Mcclendon MD Unavailable Haja Page MD PhD Unavailable + Pema Gill MD Unavailable [phone] Chandler Trejo MD Unavailable [phone] Johan Marti MD Unavailable [phone] Bouchra Ariadne Ricarda OUTBOUND SALES SPECIALIST Unavailable [phone] Pema Gill MD Unavailable [phone] Hero Jackman MD Unavailable Ronal Jackson MD Unavailable Kristen Perez MD Unavailable [phone] Ryan Sanders MD Unavailable Geovanna AlvarengaM Unavailable [phone] Va HospitaljoneAriadne Ricarda OUTBOUND SALES SPECIALIST Unavailable [phone] Tabby Light RN Unavailable [phone] Junior Tobin MD Unavailable Reason for Referral * Surgical (Routine) - Closed Specialty Diagnoses / Procedures Referred By Contac t Referred To Contact Orthopedic Surgery Diagnoses Spondylolysis, lumbar region Anila Patino MD Phone: tel: fax: Shaquille Blanco MD Phone: tel: fax: Referral ID Status Reason Start Date Expiration Date V isits Requested Visits Authorized [id number] Closed Specialty Services Required 12/11/2016 06/09/2017 12 12 Encounter Details Date Type Department Care Team (Late st Contact Info) Description 12/11/2016 Orders Only [facility] [address] [place] [address] Anila Patino MD [address] [place] [address] Spondylolysis, lumbar region (Primary Dx) Social History Tobacco Use Types Packs/Day Years Used Date Smoking Tobacco: Never Alcohol Use Standard Drinks/Week Comments No 0 (1 standard drink = 0.6 oz pur e alcohol) Comments Unknown Sex and Gender Information Value Date Recorded Sex Assigned at Not on file Legal Sex Female 4:42 AM BRUSH FABRICATION SUPERVISOR Gender Identity Female 03/06/2022 7:30 PM CDT Sexual Orientation Straight 03/06/2022 7: 30 PM CDT documented as of this encounter Plan of Treatment Upcoming Encounters Date Type Department Care Team (Latest Contact Info) Description 02/25/2025 12:30 PM CDT Ancillary Procedure [place] Telephone Switchboard Operator [address] [place] [address] SSS (sick sinus syndrome) (HCC); Cardiac pacemaker in situ 09/07/2025 Orders Only [facility] [address] [place] [address] Scanning, Provider Scheduled Referrals Name Type Priority Associated Diagnoses Order Schedule Ambulatory referral to General Surgery Outpatient Referral Routine Spondylolysis, lumbar region Ordered: 12/11/2016 documented as of this encounter Visit Diagnoses Diagnosis Spondylolysis, lumbar region- Primary Lumbosacral spondylosis without myelopathy SSS (sick sinus syndrome) (HCC) Sinoatrial node dysfunction Cardiac pacemaker in situ documented in this encounter Additional Health Concerns Infection Onset Date Last Indicated Resolved Time COVID: Suspected 08/04/2020 08/04/2020 08/04/2020 2:35 PM BRUSH FABRICATION SUPERVISOR COVID: Suspected 10/05/2020 10/05/2020 10/05/2020 1:07 PM CDT COVID: Suspected 12/16/2020 12/16/2020 12/16/2020 3:40 PM CDT COVID: Suspected 03/15/2021 03/15/2021 03/15/2021 8:52 AM CDT COVID: Suspected 08/15/2021 08/15/2021 08/16/2021 3:05 AM BRUSH FABRICATION SUPERVISOR COVID: Suspected 05/20/2022 05/20/2022 05/20/2022 2:35 PM BRUSH FABRICATION SUPERVISOR COVID19 05/20/2022 05/20/2022 05/30/2022 3:05 AM BRUSH FABRICATION SUPERVISOR COVID: Recovered Comment:Added based on recent COVID infection. 05/30/2022 05/30/2022 08/28/2022 3:05 AM CDT COVID: Suspected 01/13/2023 01/14/2023 01/14/2023 3:05 AM CDT COVID: Suspected 05/02/2023 05/02/2023 05/02/2023 5:51 PM BRUSH FABRICATION SUPERVISOR COVID: Suspected 10/10/2023 10/10/2023 10/10/2023 4:01 PM CDT COVID: Suspected 12/06/2024 12/06/2024 12/06/2024 12:57 PM CDT documented as of this encounter Care Teams Tip Scourer Relationship Specialty Start Date End Date Anila Patino MD PCP - General 09/13/16 Salomon Medrano MD [address] [address] Rheumatology 01/02/17 Rosalinda Looney MD [address] [address] Psychiatry 01/02/17 Barrington Yanez MD [address] [address] Pulmonary Disease 01/02/17 01/20/20 [place] [address] [address] Surgeon Orthopedic Surgery 01/02/17 01/27/22 [place] [address] [address] Otolaryngology 01/02/17 01/20/20 [place] [address] [address] Radiation Oncology 01/02/17 [place] [address] [address] Neurosurgery 01/02/17 Tino Still MD [address] [place] [address] [address] [address] Surgeon Orthopedic Surgery 09/19/17 [place] [address] [place] [address] Referring Physician Urology 09/19/17 01/20/20 [place] [address] [place] [address] Consulting Physician Gastroenterology 12/10/19 Pema Gill MD [address] [place] [address] Fellow Pulmonary Disease 01/21/20 02/18/24 Jus Patel MD [address] [place] [address] Consulting Physician Urology 01/21/20 02/05/23 Haja Luciano MD [address] [place] [address] Consulting Physician Cardiovascular Disease 12/21/20 Yasmine Yanes MD [address] [place] [address] Consulting Physician Cardiology 07/23/21 Yasmine Yanes MD [address] [place] [address] Consulting Physician Cardiology 07/23/21 01/27/22 Samantha Mir RN Registered Nurse Pulmonary Disease 01/10/22 02/18/24 Tabby Mcclendon MD [address] [place] [address] Plater Apprentice Obstetrics and Gynecology 01/28/22 07/30/22 Haja Page MD PhD [address] [place] [address] Consulting Physician Neurology 05/04/22 05/03/24 Pema Gill MD [address] [place] [address] Fellow Pulmonary Disease 06/21/22 07/30/22 Chandler Trejo MD [address] [place] [address] Consulting Physician Gastroenterology 07/31/22 02/18/24 Johan Marti MD [address] [place] [address] [address] [place] [address] Referring Physician Neurosurgery 02/06/23 05/03/24 Ariadne Shook, ROSITA [address] [place] [address] Nurse Practitioner Neurology 07/22/23 05/03/24 Pema Gill MD [address] [place] [address] Fellow Pulmonary Disease 07/22/23 07/22/23 Hero Jackman MD [address] [facility] NEUR[facility]Y SLEEP [facility] [address] [place] [address] Consulting Physician Sleep Medicine 07/22/23 Ronal Jackson MD [address] [place] [address] Consulting Physician Pulmonary Disease 02/19/24 Kristen Perez MD [address] [place] [address] Anesthesiologist Pain Management 02/19/24 Ryan Sanders MD 2 [facility] [address] [place] [address] Consulting Physician Urology 05/04/22 Geovanna Alvarenga DPM [address] [place] [address] Consulting Physician Foot and Ankle Surg 05/04/24 Ariadne Shook, ROSITA [address] [place] [address] Nurse Practitioner Neurology 06/01/24 Tabby Light RN 660 [facility] [address] [place] [address] Rehabilitation Nurse 07/05/24 Junior Tobin MD 2 [facility] [address] [place] [address] Consulting Physician Urology 07/21/24 documented as of this encounter
--- OUTSIDE RECORDS SUMMARY | 2025-02-25 11:18 | XMS_ITS | Encounter Summary ---
Author Organization [facility] Address [address] [place] [address] Phone Care Team Providers Care Mud Trucker Name Role Phone Anila Patino MD Primary Care Provider [phone] Salomon Medrano MD Unavailable [phone] Rosalinda Looney MD Unavailable Shaquille Blanco MD Unavailable Lit Singer MD Unavailable Johan Marti MD Unavailable Tino Still MD Unavailable Matt Richardson DO Unavailable [phone] Pema Gill MD Unavailable [phone] Jus Patel MD Unavailable Haja Luciano MD Unavailable [phone] Yasmine Yanes MD Unavailable Yasmine Yanes MD Unavailable Samantha Mir RN Unavailable Unavailable Tabby Mcclendon MD Unavailable Haja Page MD PhD Unavailable + Pema Gill MD Unavailable [phone] Chandler Trejo MD Unavailable [phone] Johan Marti MD Unavailable [phone] BouchraAriadne Ricarda AUTOMOBILE LIGHTS ASSEMBLER Unavailable [phone] Pema Gill MD Unavailable [phone] Hero Jackman MD Unavailable Ronal Jackson MD Unavailable Kristen Perez MD Unavailable [phone] Ryan Sanders MD Unavailable Geovanna AlvarengaM Unavailable [phone] MichaelevertjoneAriadne Ricarda AUTOMOBILE LIGHTS ASSEMBLER Unavailable [phone] Tabby Light RN Unavailable [phone] Junior Tobin MD Unavailable Encounter Details Date Type Department Care Team (Late st Contact Info) Description 05/02/2021 Orders Only [facility] [address] [place] [address] Teodoro Patino MD [address] [place] [address] Social History Tobacco Use Types Packs/Day Years [...] 07/07/2020 How often do you attend [facility] or church services? More than 4 times per year 07/07/2020 Do you belong to any clubs o r organizations such as episcopalian groups, unions, fraternal or athletic groups, or [...] on file Legal Sex Female 4:42 AM CHIP DRIER Gender Identity Female 03/06/2022 7:30 PM CDT Sexual Orientation Straight 03/06/2022 7: 30 PM CDT Occupation Industry Job Start Date Job End Date disabled Not on file Not on file Not on file documented as of this encounter Plan of Treatment Upcoming Encounters Date Type Department Care Team (Latest Contact Info) Description 02/25/2025 12:30 PM CDT Ancillary Procedure [place] Piece Dye Worker [address] [place] [address] SSS (sick sinus syndrome) (HCC); Cardiac pacemaker in situ 09/07/2025 Orders Only [facility] [address] [place] [address] Scanning, Provider documented as of this encounter Procedures Procedure Name Priority Date/Time Associated Diagnosis Comments CARDIOLOGY DOCUMENT SCAN 05/02/2021 documented in this encounter Results * SCAN - CARDIOLOGY (05/02/2021) Anatomical Region Laterality Modality Other us Teodoro Patino MD CV CARDIAC SERVICES PROCEDURE S Final Result documented in this encounter Visit Diagnoses Not on filedocumented in this encounter Additional Health Concerns Infection Onset Date Last Indicated Resolved Time COVID: Suspected 08/15/2021 08/15/2021 08/16/2021 3:05 AM CHIP DRIER COVID: Suspected 05/20/2022 05/20/2022 05/20/2022 2:35 PM CHIP DRIER COVID19 05/20/2022 05/20/2022 05/30/2022 3:05 AM CHIP DRIER COVID: Recovered Comment:Added based on recent COVID infection. 05/30/2022 05/30/2022 08/28/2022 3:05 AM C DT COVID: Suspected 01/13/2023 01/14/2023 01/14/2023 3:05 AM CDT COVID: Suspected 05/02/2023 05/02/2023 05/02/2023 5:51 PM CHIP DRIER COVID: Suspected 10/10/2023 10/10/2023 10/10/2023 4:01 PM CDT COVID: Suspected 12/06/2024 12/06/2024 12/06/2024 12:57 PM CDT documented as of this encounter Care Teams Mud Trucker Relationship Specialty Start Date End Date Anila Patino MD PCP - General 09/13/16 Salomon Medrano MD [address] [place] [address] Rheumatology 01/02/17 Rosalinda Looney MD [address] [facility] [address] [place] [address] Psychiatry 01/02/17 [place] [address] [facility] [address] [place] [address] Surgeon Orthopedic Surgery 01/02/17 01/27/22 [place] [address] [facility] [address] [place] [address] Radiation Oncology 01/02/17 [place] [address] [facility] [address] [place] [address] Neurosurgery 01/02/17 iTno Still MD [address] [place] [address] [address] [facility] [address] [place] [address] Surgeon Orthopedic Surgery 09/19/17 Matt Richardson DO [address] [place] [address] [address] [place] [address] Consulting Physician Gastroenterology 12/10/19 Pema Gill MD [address] [place] [address] Fellow Pulmonary Disease 01/21/20 02/18/24 Jus Patel MD [address] [place] [address] Consulting Physician Urology 01/21/20 02/05/23 Haja Luciano MD [address] [place] [address] Consulting Physician Cardiovascular Disease 12/21/20 Yasmine Yanes MD [address] [place] [address] Consulting Physician Cardiology 07/23/21 Yasmine Yanes MD [address] [place] [address] Consulting Physician Cardiology 07/23/21 01/27/22 Samantha Mir, RN Registered Nurse Pulmonary Disease 01/10/22 02/18/24 Tabby Mcclendon MD [address] [place] [address] Business Investor Obstetrics and Gynecology 01/28/22 07/30/22 Haja Page MD PhD [address] [place] [address] Consulting Physician Neurology 05/04/22 05/03/24 Pema Gill MD [address] [place] [address] Fellow Pulmonary Disease 06/21/22 07/30/22 Chandler Trejo MD [address] [place] [address] [place] [address] Consulting Physician Gastroenterology 07/31/22 02/18/24 Johan Marti MD [address] [place] [address] [place] [address] Referring Physician Neurosurgery 02/06/23 05/03/24 Ariadne Shook, ROSITA [address] [place] [address] Nurse Practitioner Neurology 07/22/23 05/03/24 Pema Gill MD [address] [place] [address] Fellow Pulmonary Disease 07/22/23 07/22/23 Hero Jackman MD [address] [facility] NEUROLOGY SLEEP [facility] [address] [place] [address] Consulting Physician Sleep Medicine 07/22/23 Ronal Jackson MD [address] [place] [address] Consulting Physician Pulmonary Disease 02/19/24 Kristen Perez MD [address] [place] [address] Anesthesiologist Pain Management 02/19/24 Ryan Sanders MD [address] [place] [address] Consulting Physician Urology 05/04/22 Geovanna Alvarenga DPM [address] [place], [place] [address] Consulting Physician Foot and Ankle Surg 05/04/24 Ariadne Shook NP [address] [place] [address] Nurse Practitioner Neurology 06/01/24 Tabby Light RN [address] [place] [address] [address] [place] [address] Field Application Engineer 07/05/24 Junior Tobin MD 2 [facility] [address] [place] [address] Consulting Physician Urology 07/21/24 documented as of this encounter
--- OUTSIDE RECORDS SUMMARY | 2025-02-25 11:18 | XMS_ITS | Encounter Summary ---
Author Organization [facility] Address [address] [facility] [place] [address] Phone Care Team Providers Care Clothes Separator Name Role Phone Anila Patino MD Primary Care Provider [phone] Tj Bonner MD Unavailable [phone] Srinath RodriguezM Unavailable [phone] Buster Xiong Unavailable Unavailable Barrington Yanez MD Unavailable Vannessa Nunez RN Unavailable Unavailcharito Quinn III, MD, Courtney Unavailable [phone] Haja Jones MD Unavailable [phone] Encounter Details Date Type Department Care Team (Late st Contact Info) Description 12/15/2020 [facility] Ad[facility] 1 [place] [address] Pema Gill MD [address] [address] Obstructive chronic bronchitis without exacerbation (HCC) (Primary [...] Description 03/14/2025 11:30 AM CDT Office Visit [facility] [address] [place] [address] Haja Jones MD [address]2 [facility] [address] [place] [address] documented as of this encounter Visit Diagnoses Diagnosis Obstructive chronic bronchitis without exacerbation (HCC)- Primary Obstructive chronic bronchitis without exacerbation documented in this encounter Additional Health Concerns Infection Onset Date Last Indicated Resolved Time COVID - 19 06/20/2021 06/20/2021 06/20/2021 2:16 PM NURSERY HAND Respiratory Rule Out - RPA 06/21/2021 06/21/2021 0 06/21/2021 9:47 PM NURSERY HAND COVID - 19 Confirmed 05/24/2022 05/24/2022 022 12:18 AM NURSERY HAND COVID - 19 06/24/2023 06/24/2023 07/04/2023 12:1 6 AM NURSERY HAND COVID - 19 06/30/2024 06/30/2024 06/30/2024 1:11 AM NURSERY HAND C. difficile Rule-Out 07/01/2024 07/01/20242024 5:24 PM NURSERY HAND ESBL 11/01/2024 11/01/2024 Assessment Noted Time PHQ-9 Depression Total Score: 1 10/18/19 21 10:30 AM CDT documented as of this encounter Care Teams Clothes Separator Relationship Specialty Start Date End Date Anila Patino MD [address] [facility] [address] PCP - General Internal Medicine 04/15/15 Tj Bonner MD [address] [address] Consulting Physician Neurology 09/01/15 05/02/24 Sirnath Rodriguez DPM [address] [place] [address] Podiatry 08/01/16 Buster Xiong [address] [facility] [address] 08/01/16 Barrington Yanez MD [address] [place] [address] Consulting Physician Pulmonary Disease 09/13/16 Vannessa Nunez RN [place] Brake Operator Helper 10/17/20 03/12/21 Betty Quinn III, MD #[address] [place] [address] Consulting Physician Urology 12/23/22 Haja Jones MD #[address] [place] [address] Consulting Physician Urology 07/21/23 documented as of this encounter
--- OUTSIDE RECORDS SUMMARY | 2025-02-25 11:18 | XMS_ITS | Encounter Summary ---
Author Organization [facility] Address [address] [place] [address] Phone Care Team Providers Care Dicer Operator Name Role Phone Anila Patino MD Primary Care Provider [phone] Salomon Medrano MD Unavailable [phone] Rosalinda Looney MD Unavailable Barrington Yanez MD Unavailable Shaquille Blanco MD Unavailable Onesimo Magaña MD Unavailable Lit Singer MD Unavailable [phone] Johan Marti MD Unavailable Tino Still MD Unavailable Matthias Christianson MD Unavailable Matt Richardson DO Unavailable [phone] Pema Gill MD Unavailable [phone] Jus Patel MD Unavailable [phone] Haja Luciano MD Unavailable Yasmine Yanes MD Unavailable Yasmine Yanes MD Unavailable [phone] Samantha Mir RN Unavailable Unavailable Tabby Mcclendon MD Unavailable Haja Page MD PhD Unavailable + Pema Gill MD Unavailable [phone] Chandler Trejo MD Unavailable [phone] Johan Marti MD Unavailable [phone] Bouchra Ariadne Ricarda MUD MIXER OPERATOR Unavailable [phone] Pema Gill MD Unavailable [phone] Hero Jackman MD Unavailable Ronal Jackson MD Unavailable Kristen Perez MD Unavailable [phone] Ryan Sanders MD Unavailable Geovanna AlvarengaM Unavailable [phone] [facility] Ariadne Ricarda MUD MIXER OPERATOR Unavailable [phone] Tabby Light RN Unavailable [phone] Junior Tobin MD Unavailable Reason for Referral * Consultation (Routine) - Closed Specialty Diagnoses / Procedures Referred By Contac t Referred To Contact Rheumatology Diagnoses Other rheumatoid arthritis with rheumatoid factor of multiple sites Anila Patino MD Phone: tel: fax: Salomon Medrano MD Phone: tel: fax: Referral ID Status Reason Start Date Expiration Date V isits Requested Visits Authorized [id number] Closed Specialty Services Required 01/06/2017 07/05/2017 6 6 Encounter Details Date Type Department Care Team (Late st Contact Info) Description 01/06/2017 Orders Only [facility] [address] [place] [address] Anila Patino MD [address] [place] [address] Other rheumatoid arthritis with rheumatoid factor of multiple sites (HCC) (Primary Dx) Social History Tobacco Use Types Packs/Day Years Used Date Smoking Tobacco: Never Smokeless Tobacco: Never Alcohol Use Standard Drinks/Week Comments No 0 (1 standard drink = 0.6 oz pur e alcohol) Comments Unknown Sex and Gender Information Value Date Recorded Sex Assigned at Not on file Legal Sex Female 4:42 AM VOCAL MUSIC TEACHER Gender Identity Female 03/06/2022 7:30 PM CDT Sexual Orientation Straight 03/06/2022 7: 30 PM CDT documented as of this encounter Plan of Treatment Upcoming Encounters Date Type Department Care Team (Latest Contact Info) Description 02/25/2025 12:30 PM CDT Ancillary Procedure Hondah Engraver Picture [address] [place] [phone] SSS (sick sinus syndrome) (HCC); Cardiac pacemaker in situ 09/07/2025 Orders Only [facility] [address] [place] [address] Scanning, Provider Scheduled Referrals Name Type Priority Associated Diagnoses Order Schedule Ambulatory referral to Rheumatology Outpatient Referral Routine Other rheumatoid arthritis with rheumatoid factor of multiple sites (HCC) Ordered: 01/06/2017 documented as of this encounter Visit Diagnoses Diagnosis Other rheumatoid arthritis with rheumatoid factor of multiple sites- Primary SSS (sick sinus syndrome) (HCC) Sinoatrial node dysfunction Cardiac pacemaker in situ documented in this encounter Additional Health Concerns Infection Onset Date Last Indicated Resolved Time COVID: Suspected 08/04/2020 08/04/2020 08/04/2020 2:35 PM VOCAL MUSIC TEACHER COVID: Suspected 10/05/2020 10/05/2020 10/05/2020 1:07 PM CDT COVID: Suspected 12/16/2020 12/16/2020 12/16/2020 3:40 PM CDT COVID: Suspected 03/15/2021 03/15/2021 03/15/2021 8:52 AM CDT COVID: Suspected 08/15/2021 08/15/2021 08/16/2021 3:05 AM VOCAL MUSIC TEACHER COVID: Suspected 05/20/2022 05/20/2022 05/20/2022 2:35 PM VOCAL MUSIC TEACHER COVID19 05/20/2022 05/20/2022 05/30/2022 3:05 AM VOCAL MUSIC TEACHER COVID: Recovered Comment:Added based on recent COVID infection. 05/30/2022 05/30/2022 08/28/2022 3:05 AM C DT COVID: Suspected 01/13/2023 01/14/2023 01/14/2023 3:05 AM CDT COVID: Suspected 05/02/2023 05/02/2023 05/02/2023 5:51 PM VOCAL MUSIC TEACHER COVID: Suspected 10/10/2023 10/10/2023 10/10/2023 4:01 PM CDT COVID: Suspected 12/06/2024 12/06/2024 12/06/2024 12:57 PM CDT documented as of this encounter Care Teams Dicer Operator Relationship Specialty Start Date End Date Anila Patino MD PCP - General 09/13/16 Salomon Medrano MD [address] [address] Rheumatology 01/02/17 Rosalinda Looney MD [address] [facility] [address] [place] [address] Psychiatry 01/02/17 Barrington Yanez MD [address] [facility] [address] [place] [address] Pulmonary Disease 01/02/17 01/20/20 [place] [address] [address] Surgeon Orthopedic Surgery 01/02/17 01/27/22 [place] [address] [address] Otolaryngology 01/02/17 01/20/20 [place] [address] [address] Radiation Oncology 01/02/17 [place] [address] [address] Neurosurgery 01/02/17 Tino Still MD [address] [place] [address] [address] [address] Surgeon Orthopedic Surgery 09/19/17 [place] [address] [address] Referring Physician Urology 09/19/17 01/20/20 [place] [address] [address] Consulting Physician Gastroenterology 12/10/19 Pema Gill MD [address] [place] [address] Fellow Pulmonary Disease 01/21/20 02/18/24 Jus Patel MD [address] [place] [address] Consulting Physician Urology 01/21/20 02/05/23 Haja Luciano MD [address] [place] [address] Consulting Physician Cardiovascular Disease 12/21/20 Yasmine Yanes MD [address] [place] [address] Consulting Physician Cardiology 07/23/21 Yasmine Yanes MD [address] [place] [address] Consulting Physician Cardiology 07/23/21 01/27/22 Samantha Mir, RN Registered Nurse Pulmonary Disease 01/10/22 02/18/24 Tabby Mcclendon MD [address] [place] [address] Pneumatic Jack Operator Obstetrics and Gynecology 01/28/22 07/30/22 Haja Page MD PhD [address] [place] [address] Consulting Physician Neurology 05/04/22 05/03/24 Pema Gill MD [address] [place] [address] Fellow Pulmonary Disease 06/21/22 07/30/22 Chandler Trejo MD [address] [facility] [place] [address] Consulting Physician Gastroenterology 07/31/22 02/18/24 Johan Marti MD [address] [place] [address] Referring Physician Neurosurgery 02/06/23 05/03/24 Bouchra Ariadne Ricarda, MUD MIXER OPERATOR [address] [place] [address] Nurse Practitioner Neurology 07/22/23 05/03/24 Pema Gill MD [address] [place] [address] Fellow Pulmonary Disease 07/22/23 07/22/23 Hero Jackman MD [address] [facility] NEUROLOGY SLEEP [address] [address] Consulting Physician Sleep Medicine 07/22/23 Ronal Jackson MD [address] [place] [address] Consulting Physician Pulmonary Disease 02/19/24 Kristen Perez MD [address] [place] [address] Anesthesiologist Pain Management 02/19/24 Ryan Sanders MD [address] [address] Consulting Physician Urology 05/04/22 Geovanna Alvarenga DPM [address] [place] [address] Consulting Physician Foot and Ankle Surg 05/04/24 Ariadne Shook NP [address] [place] [address] Nurse Practitioner Neurology 06/01/24 Tabby Light RN [address] [facility] [address] [place] [address] Lead Press Operator 07/05/24 Junior Tobin MD [address] [facility] [address] [place] [address] Consulting Physician Urology 07/21/24 documented as of this encounter
--- OUTSIDE RECORDS SUMMARY | 2025-02-25 11:18 | XMS_ITS | Encounter Summary ---
Author Organization [facility] Address [address] [place] [address] Phone Care Team Providers Care College Administrator Name Role Phone Anila Patino MD Primary Care Provider [phone] Salomon Medrano MD Unavailable [phone] Rosalinda Looney MD Unavailable Shaquille Blanco MD Unavailable Lit Singer MD Unavailable Johan Marti MD Unavailable Tino Still MD Unavailable Matt Richardson DO Unavailable [phone] Pema Gill MD Unavailable [phone] Jus Patel MD Unavailable [phone] Yasmine Yanes MD Unavailable Yasmine Yanes MD Unavailable Samantha Mir RN Unavailable Unavailable Tabby Mcclendon MD Unavailable Haja Page MD PhD Unavailable + Pema Gill MD Unavailable + [phone] Chandler Trejo MD Unavailable [phone] Johan Marti MD Unavailable [phone] MichaelAriadne palencia Ricarda WHEEL PRESSER Unavailable [phone] Pema Gill MD Unavailable [phone] Hero Jackman MD Unavailable Ronal Jackson MD Unavailable Kristen Perez MD Unavailable [phone] Ryan Sanders MD Unavailable Geovanna Alvarenga DPM Unavailable [phone] Ariadne Shook Ricarda WHEEL PRESSER Unavailable [phone] Tabby Light RN Unavailable [phone] Junior Tobin MD Unavailable Encounter Details Date [...] often do you attend chur ch or methodist services? More than 4 times per year 07/07/2020 Do you belong to any clubs o r organizations such as moravian groups, unions, fraternal or athletic groups, or [...] on file Legal Sex Female 4:42 AM OFFICE SERVICES MANAGER Gender Identity Female 03/06/2022 7:30 PM CDT Sexual Orientation Straight 03/06/2022 7: 30 PM CDT Occupation Industry Job Start Date Job End Date disabled Not on file Not on file Not on file documented as of this encounter Plan of Treatment Upcoming Encounters Date Type Department Care Team (Latest Contact Info) Description 02/25/2025 12:30 PM CDT Ancillary Procedure Orem Mcat Instructor [address] [place] [phone] SSS (sick sinus syndrome) (HCC); Cardiac pacemaker in situ 09/07/2025 Orders Only [facility] [address] [place] [address] Scanning, Provider documented as of [...] COVID: Suspected 05/20/2022 05/20/2022 05/20/2022 2:35 PM OFFICE SERVICES MANAGER COVID19 05/20/2022 05/20/2022 05/30/2022 3:05 AM OFFICE SERVICES MANAGER COVID: Recovered Comment:Added based on recent COVID infection. 05/30/2022 05/30/2022 08/28/2022 3:05 AM C DT COVID: Suspected 01/13/2023 01/14/2023 01/14/2023 3:05 AM CDT COVID: Suspected 05/02/2023 05/02/2023 05/02/2023 5:51 PM OFFICE SERVICES MANAGER COVID: Suspected 10/10/2023 10/10/2023 10/10/2023 4:01 PM CDT COVID: Suspected 12/06/2024 12/06/2024 12/06/2024 12:57 PM CDT documented as of this encounter Care Teams College Administrator Relationship Specialty Start Date End Date Anila Patino MD PCP - General 09/13/16 Salomon Medrano MD [address] [facility] [address] [place] [address] Rheumatology 01/02/17 Rosalinda Looney MD [address] [facility] [facility] [address] [place] [address] Psychiatry 01/02/17 [place] [address] [address] [address] Surgeon Orthopedic Surgery 01/02/17 01/27/22 [place] [address] [facility] [address] [place] [address] Radiation Oncology 01/02/17 [place] [address] [facility] [address] [place] [address] Neurosurgery 01/02/17 Tino Still MD [address] [place] [address] [address]RI[address] [place] [address] Surgeon Orthopedic Surgery 09/19/17 Matt Richardson DO [address] [place] [address] [address]RI[address] Eagle [address] [place] [address] Consulting Physician Gastroenterology 12/10/19 Pema Gill MD [address] [place] [address] Fellow Pulmonary Disease 01/21/20 02/18/24 Jus Patel MD [address] [place] [address] Consulting Physician Urology 01/21/20 02/05/23 Yasmine Yanes MD [address] [place] [address] Consulting Physician Cardiology 07/23/21 Yasmine Yanes MD [address] [place] [address] Consulting Physician Cardiology 07/23/21 01/27/22 Samantha Mir, RN Registered Nurse Pulmonary Disease 01/10/22 02/18/24 Tabby Mcclendon MD [address] [place] [address] Fly Frame Tender Obstetrics and Gynecology 01/28/22 07/30/22 Haja Page MD PhD [address] [place] [address] Consulting Physician Neurology 05/04/22 05/03/24 Pema Gill MD [address] [place] [address] Fellow Pulmonary Disease 06/21/22 07/30/22 Chandler Trejo MD [address] [facility] [place] [address] Consulting Physician Gastroenterology 07/31/22 02/18/24 Johan Marti MD [address] [place] [address] [facility] [place] [address] Referring Physician Neurosurgery 02/06/23 05/03/24 Ariadne Shook, WHEEL PRESSER [address] [place] [address] Nurse Practitioner Neurology 07/22/23 05/03/24 Pema Gill MD [address] [place] [address] Fellow Pulmonary Disease 07/22/23 07/22/23 Hero Jackman MD [address] [facility] NEUROLOGY SLEEP [facility] [address] [place] [address] Consulting Physician Sleep Medicine 07/22/23 Ronal Jackson MD [address] [place] [address] Consulting Physician Pulmonary Disease 02/19/24 Kristen Perez MD [address] [place] [address] Anesthesiologist Pain Management 02/19/24 Ryan Sanders MD [address] [address] Consulting Physician Urology 05/04/22 Geovanna Alvarenga DPM [address] [place] [address] Consulting Physician Foot and Ankle Surg 05/04/24 Ariadne Shook NP [address] [place] [address] Nurse Practitioner Neurology 06/01/24 Tabby Lihgt, CARINA [address] [place] [address] Senior Design Engineer 07/05/24 Junior Tobin MD [address] [address] Consulting Physician Urology 07/21/24 documented as of this encounter
--- OUTSIDE RECORDS SUMMARY | 2025-02-25 11:18 | XMS_ITS | Encounter Summary ---
Author Organization [facility] Address [address] [place] [address] Phone Care Team Providers Care Entomology Professor Name Role Phone Anila Patino MD Primary Care Provider [phone] Salomon Medrano MD Unavailable [phone] Rosalinda Looney MD Unavailable Shaquille Blanco MD Unavailable Lit Singer MD Unavailable Johan Marti MD Unavailable Tino Still MD Unavailable Matt Richardson DO Unavailable [phone] Pema Gill MD Unavailable [phone] Jus Patel MD Unavailable Haja Luciano MD Unavailable Yasmine Yanes MD Unavailable [phone] Yasmine Yanes MD Unavailable [phone] Samantha Mir RN Unavailable Unavailable Tabby Mcclendon MD Unavailable Haja Page MD PhD Unavailable + Pema Gill MD Unavailable +[phone] Chandler Trejo MD Unavailable [phone] Johan Marti MD Unavailable [phone] Bouchra Ariadne Chowdary INSIDE SALES DIRECTOR Unavailable [phone] Pema Gill MD Unavailable +[phone] Hero Jackman MD Unavailable Ronal Jackson MD Unavailable Kristen Perez MD Unavailable [phone] Ryan Sanders MD Unavailable Geovanna AlvarengaM Unavailable [phone] [facility] Ricarda INSIDE SALES DIRECTOR Unavailable [phone] Tabby Light RN Unavailable [phone] Junior Tobin MD Unavailable Encounter Details Date [...] How often do you attend chur or mormonism services? More than 4 times per year 07/07/2020 Do you belong to any clubs o r organizations such as baptism groups, unions, fraternal or athletic groups, or [...] on file Legal Sex Female 4:42 AM NET APPLICATION SUPPORT SPECIALIST Gender Identity Female 03/06/2022 7:30 PM CDT Sexual Orientation Straight 03/06/2022 7: 30 PM CDT Occupation Industry Job Start Date Job End Date disabled Not on file Not on file Not on file documented as of this encounter Plan of Treatment Upcoming Encounters Date Type Department Care Team (Latest Contact Info) Description 02/25/2025 12:30 PM CDT Ancillary Procedure Tigard Shine Worker [address] [place] [phone] SSS (sick sinus syndrome) (HCC); Cardiac pacemaker in situ 09/07/2025 Orders Only [facility] [address] [place] [address] Scanning, Provider documented as of [...] COVID: Suspected 08/15/2021 08/15/2021 08/16/2021 3:05 AM NET APPLICATION SUPPORT SPECIALIST COVID: Suspected 05/20/2022 05/20/2022 05/20/2022 2:35 PM NET APPLICATION SUPPORT SPECIALIST COVID19 05/20/2022 05/20/2022 05/30/2022 3:05 AM NET APPLICATION SUPPORT SPECIALIST COVID: Recovered Comment:Added based on recent COVID infection. 05/30/2022 05/30/2022 08/28/2022 3:05 AM C DT COVID: Suspected 01/13/2023 01/14/2023 01/14/2023 3:05 AM CDT COVID: Suspected 05/02/2023 05/02/2023 05/02/2023 5:51 PM NET APPLICATION SUPPORT SPECIALIST COVID: Suspected 10/10/2023 10/10/2023 10/10/2023 4:01 PM CDT COVID: Suspected 12/06/2024 12/06/2024 12/06/2024 12:57 PM CDT documented as of this encounter Care Teams Entomology Professor Relationship Specialty Start Date End Date Anila Patino MD PCP - General 09/13/16 Salomon Medrano MD [address] [facility] [address] [place] [address] Rheumatology 01/02/17 Rosalinda Looney MD [address] [facility] [address] [place] [address] Psychiatry 01/02/17 [place] [address] [address] Surgeon Orthopedic Surgery 01/02/17 01/27/22 [place] [address] [facility] [address] [place] [address] Radiation Oncology 01/02/17 [place] [address] [address] [facility] [address] [place] [address] Neurosurgery 01/02/17 Tino Still MD [address] [place] [address] DR BRIAN Eagle [facility] [address] [place] [address] Surgeon Orthopedic Surgery 09/19/17 Matt Richardson DO [address] [place] [address] DR BRIAN Eagle [facility] [address] [place] [address] Consulting Physician Gastroenterology 12/10/19 Pema Gill MD [address] [place] [address] Fellow Pulmonary Disease 01/21/20 02/18/24 Jus Patel MD [address] [place] [address] Consulting Physician Urology 01/21/20 02/05/23 Haja Luciano MD [address] [place] [address] Consulting Physician Cardiovascular Disease 12/21/20 Yasmine Yanes MD [address] [place] [address] Consulting Physician Cardiology 07/23/21 Yasmine Yanes MD [address] [place] [address] Consulting Physician Cardiology 07/23/21 01/27/22 Samantha Mir RN Registered Nurse Pulmonary Disease 01/10/22 02/18/24 Tabby Mcclendon MD [address] [place] [address] Correction Worker Obstetrics and Gynecology 01/28/22 07/30/22 Haja Page MD PhD [address] [place] [address] Consulting Physician Neurology 05/04/22 05/03/24 Pema Gill MD [address] [place] [address] Fellow Pulmonary Disease 06/21/22 07/30/22 Chandler Trejo MD 4 [facility] [place] [address] Consulting Physician Gastroenterology 07/31/22 02/18/24 Johan Marti MD 4 [facility] [place] [address] Referring Physician Neurosurgery 02/06/23 05/03/24 Ariadne Shook, ROSITA [address] [place] [address] Nurse Practitioner Neurology 07/22/23 05/03/24 Pema Gill MD [address] [place] [address] Fellow Pulmonary Disease 07/22/23 07/22/23 Hero Jackman MD [address] [facility] NEUROLOGY SLEEP [facility] [address] [place] [address] Consulting Physician Sleep Medicine 07/22/23 Ronal Jackson MD [address] [place] [address] Consulting Physician Pulmonary Disease 02/19/24 Kristen Perez MD [address] [place] [address] Anesthesiologist Pain Management 02/19/24 Ryan Sanders MD [address] [address] Consulting Physician Urology 05/04/22 Geovanna Alvarenga DPM [address] [place] [address] Consulting Physician Foot and Ankle Surg 05/04/24 Ariadne Shook NP [address] [place] [address] Nurse Practitioner Neurology 06/01/24 Tabby Light RN [address] [place] [address] [address] [place] [address] Manager Distribution Center 07/05/24 Junior Tobin MD [address] [address] Consulting Physician Urology 07/21/24 documented as of this encounter
--- OUTSIDE RECORDS SUMMARY | 2025-02-25 11:18 | XMS_ITS | Encounter Summary ---
Author Organization [facility] Address [address] [place] [address] Phone Care Team Providers Care Missile And Missile Checkout Technician Name Role Phone Anila Patino MD Primary Care Provider [phone] Salomon Medrano MD Unavailable [phone] Rosalinda Looney MD Unavailable Shaquille Blanoc MD Unavailable Lit Singer MD Unavailable Johan Marti MD Unavailable Tino Still MD Unavailable Matt Richardson DO Unavailable [phone] Pema Gill MD Unavailable Jus Patel MD Unavailable [phone] Haja Luciano MD Unavailable [phone] Yasmine Yanes MD Unavailable [phone] Yasmine Yanes MD Unavailable [phone] Samantha Mir RN Unavailable Unavailable Tabby Mcclendon MD Unavailable Haja Page MD PhD Unavailable + Pema Gill MD Unavailable +[phone] Chandler Trejo MD Unavailable [phone] Johan Marti MD Unavailable [phone] Bouchra Ariadne Chowdary PROCESSING ENGINEER Unavailable [phone] Pema Gill MD Unavailable +[phone] Hero Jackman MD Unavailable Ronal Jackson MD Unavailable Kristen Perez MD Unavailable [phone] Ryan Sanders MD Unavailable Geovanna AlvarengaM Unavailable [phone] [facility] PROCESSING ENGINEER Unavailable [phone] Tabby Light RN Unavailable [phone] Junior Tobin MD Unavailable Encounter Details Date [...] How often do you attend chur or rastafarian services? More than 4 times per year 07/07/2020 Do you belong to any clubs o r organizations such as nondenominational groups, unions, fraternal or athletic groups, or [...] file Legal Sex Female 4:42 AM MANAGER SMALL BUSINESS Gender Identity Female 03/06/2022 7:30 PM CDT Sexual Orientation Straight 03/06/2022 7: 30 PM CDT Occupation Industry Job Start Date Job End Date disabled Not on file Not on file Not on file documented as of this encounter Plan of Treatment Upcoming Encounters Date Type Department Care Team (Latest Contact Info) Description 02/25/2025 12:30 PM CDT Ancillary Procedure [place] [employer] Operator [address] [place] [id number] SSS (sick sinus syndrome) (HCC); Cardiac pacemaker in situ 09/07/2025 Orders Only [facility] [address] [place] [address] Scanning, Provider documented as of [...] Suspected 08/15/2021 08/15/2021 08/16/2021 3:05 AM MANAGER SMALL BUSINESS COVID: Suspected 05/20/2022 05/20/2022 05/20/2022 2:35 PM MANAGER SMALL BUSINESS COVID19 05/20/2022 05/20/2022 05/30/2022 3:05 AM MANAGER SMALL BUSINESS COVID: Recovered Comment:Added based on recent COVID infection. 05/30/2022 05/30/2022 08/28/2022 3:05 AM C DT COVID: Suspected 01/13/2023 01/14/2023 01/14/2023 3:05 AM CDT COVID: Suspected 05/02/2023 05/02/2023 05/02/2023 5:51 PM MANAGER SMALL BUSINESS COVID: Suspected 10/10/2023 10/10/2023 10/10/2023 4:01 PM CDT COVID: Suspected 12/06/2024 12/06/2024 12/06/2024 12:57 PM CDT documented as of this encounter Care Teams Missile And Missile Checkout Technician Relationship Specialty Start Date End Date Anila Patino MD PCP - General 09/13/16 Salomon Medrano MD [address] [facility] [address] [place] [address] Rheumatology 01/02/17 Rosalinda Looney MD [address] [facility] [address] [place] [address] Psychiatry 01/02/17 [place] [address] [facility] [address] [place] [address] Surgeon Orthopedic Surgery 01/02/17 01/27/22 [place] [address] [address] [place] [address] Radiation Oncology 01/02/17 [place] [address] [address] [place] [address] Neurosurgery 01/02/17 Tino Still MD [address] [place] [address] [address] [place] [address] Surgeon Orthopedic Surgery 09/19/17 Matt Richardson DO [address] [place] [address] [address] [place] [address] Consulting Physician Gastroenterology 12/10/19 Pema Gill MD [address] [place] [address] Fellow Pulmonary Disease 01/21/20 02/18/24 Jus Patel MD [address] [place] [address] Consulting Physician Urology 01/21/20 02/05/23 Haja Luciano MD [address] [place] [address] Consulting Physician Cardiovascular Disease 12/21/20 Yasmine Yanes MD [address] [place] [address] Consulting Physician Cardiology 07/23/21 Yasmine Yanes MD [address] [place] [address] Consulting Physician Cardiology 07/23/21 01/27/22 Samantha Mir, CARINA Registered Nurse Pulmonary Disease 01/10/22 02/18/24 Tabby Mcclendon MD [address] [place] [address] Materials Inspector Obstetrics and Gynecology 01/28/22 07/30/22 Haja Page MD PhD [address] [place] [address] Consulting Physician Neurology 05/04/22 05/03/24 Pema Gill MD [address] [place] [address] Fellow Pulmonary Disease 06/21/22 07/30/22 Chandler Trejo MD [address] [facility] [place] [address] Consulting Physician Gastroenterology 07/31/22 02/18/24 Johan Marti MD [address] [facility] [place] [address] Referring Physician Neurosurgery 02/06/23 05/03/24 Ariadne Shook, ROSITA [address] [place] [address] Nurse Practitioner Neurology 07/22/23 05/03/24 Pema Gill MD [address] [place] [address] Fellow Pulmonary Disease 07/22/23 07/22/23 Hero Jackman MD [address] [facility] NEUROLOGY SLEEP [facility], [facility] [address] [place] [address] Consulting Physician Sleep Medicine 07/22/23 Ronal Jackson MD [address] [place] [address] Consulting Physician Pulmonary Disease 02/19/24 Kristen Perez MD [address] [place] [address] Anesthesiologist Pain Management 02/19/24 Ryan Sanders MD [address] [place] [id number] Consulting Physician Urology 05/04/22 Geovanna Alvarenga DPM [address] [place] [address] Consulting Physician Foot and Ankle Surg 05/04/24 Ariadne Shook NP [address] [place] [address] Nurse Practitioner Neurology 06/01/24 Tabby Light RN [address] [place] [address] Finish Remover 07/05/24 Junior Tobin MD [address] [place] [address] Consulting Physician Urology 07/21/24 documented as of this encounter
--- OUTSIDE RECORDS SUMMARY | 2025-02-25 11:18 | XMS_ITS | Encounter Summary ---
Author Organization [facility] Address [address] [place] [address] Phone Care Team Providers Care Cloud Security Architect Name Role Phone Anila Patino MD Primary Care Provider [phone] Salomon Medrano MD Unavailable [phone] Rosalinda Looney MD Unavailable Barrington Yanez MD Unavailable Shaquille Blanco MD Unavailable Onesimo Magaña MD Unavailable [phone] Lit Singer MD Unavailable [phone] Johan Marti MD Unavailable Tino Still MD Unavailable [phone] Matthias Christianson MD Unavailable Matt Richardson DO Unavailable [phone] Pema Gill MD Unavailable [phone] Jus Patel MD Unavailable Haja Luciano MD Unavailable Yasmine Yanes MD Unavailable Yasmine Yanes MD Unavailable [phone] Samantha Mir RN Unavailable Unavailable Tabby Mcclendon MD Unavailable Haja Page MD PhD Unavailable + Pema Gill MD Unavailable [phone] Chandler Trejo MD Unavailable [phone] Johan Marti MD Unavailable [phone] Ariadne Shook GEOLOGIST Unavailable [phone] Pema Gill MD Unavailable [phone] Hero Jackman MD Unavailable Ronal Jackson MD Unavailable Kristen Perez MD Unavailable [phone] Ryan Sanders MD Unavailable Geovanna AlvarengaM Unavailable [phone] Ariadne Shook GEOLOGIST Unavailable [phone] Tabby Light RN Unavailable [phone] Junior Tobin MD Unavailable Encounter Details Date Type Department Care Team (Late st Contact Info) Description 01/07/2017 Orders Only [facility] 1 [place] [address] Scanning, Provider Social History Tobacco Use Types Packs/Day Years Used Date Smoking Tobacco: Never Smokeless Tobacco: Never Alcohol Use Standard Drinks/Week Comments No 0 (1 standard drink = 0.6 oz pur e alcohol) Comments Unknown Sex and Gender Information Value Date Recorded Sex Assigned at Not on file Legal Sex Female 4:42 AM MOTH EXTERMINATOR Gender Identity Female 03/06/2022 7:30 PM CDT Sexual Orientation Straight 03/06/2022 7: 30 PM CDT documented as of this encounter Plan of Treatment Upcoming Encounters Date Type Department Care Team (Latest Contact Info) Description 02/25/2025 12:30 PM CDT Ancillary Procedure [place] Relay Mechanic [address] [facility] [address] [place] [address] SSS (sick sinus syndrome) (HCC); Cardiac pacemaker in situ 09/07/2025 Orders Only [facility] [address] [place] [address] Scanning, Provider documented as of [...] COVID: Suspected 08/04/2020 08/04/2020 08/04/2020 2:35 PM MOTH EXTERMINATOR COVID: Suspected 10/05/2020 10/05/2020 10/05/2020 1:07 PM CDT COVID: Suspected 12/16/2020 12/16/2020 12/16/2020 3:40 PM CDT COVID: Suspected 03/15/2021 03/15/2021 03/15/2021 8:52 AM CDT COVID: Suspected 08/15/2021 08/15/2021 08/16/2021 3:05 AM MOTH EXTERMINATOR COVID: Suspected 05/20/2022 05/20/2022 05/20/2022 2:35 PM MOTH EXTERMINATOR COVID19 05/20/2022 05/20/2022 05/30/2022 3:05 AM MOTH EXTERMINATOR COVID: Recovered Comment:Added based on recent COVID infection. 05/30/2022 05/30/2022 08/28/2022 3:05 AM C DT COVID: Suspected 01/13/2023 01/14/2023 01/14/2023 3:05 AM CDT COVID: Suspected 05/02/2023 05/02/2023 05/02/2023 5:51 PM MOTH EXTERMINATOR COVID: Suspected 10/10/2023 10/10/2023 10/10/2023 4:01 PM CDT COVID: Suspected 12/06/2024 12/06/2024 12/06/2024 12:57 PM CDT documented as of this encounter Care Teams Cloud Security Architect Relationship Specialty Start Date End Date Anila Patino MD PCP - General 09/13/16 Salomon Medrano MD [address] [facility] [address] [place] [address] Rheumatology 01/02/17 Rosalinda Looney MD [address] [facility] [address] [place] [address] Psychiatry 01/02/17 Barrington Yanez MD [address] [facility] [address] [place] [address] Pulmonary Disease 01/02/17 01/20/20 [place] [address] [address] Surgeon Orthopedic Surgery 01/02/17 01/27/22 [place] [address] [address] Otolaryngology 01/02/17 01/20/20 [place] [address] [address] Radiation Oncology 01/02/17 [place] [address] [address] Neurosurgery 01/02/17 Tino Still MD [address] [place] [address] [place] [address] Surgeon Orthopedic Surgery 09/19/17 [place] [address] [address] Referring Physician Urology 09/19/17 01/20/20 [place] [address] [address] Consulting Physician Gastroenterology 12/10/19 Pema Gill MD [address] [place] [address] Fellow Pulmonary Disease 01/21/20 02/18/24 Jus Patel MD [address] [place] [address] Consulting Physician Urology 01/21/20 02/05/23 Haja Luciano MD [address] [place] [address] Consulting Physician Cardiovascular Disease 12/21/20 Yasmine Yanes MD [address] [place] [address] Consulting Physician Cardiology 07/23/21 Yasmine Yanes MD [address] [place] [address] Consulting Physician Cardiology 07/23/21 01/27/22 Samantha Mir, RN Registered Nurse Pulmonary Disease 01/10/22 02/18/24 Tabby Mcclendon MD [address] [place] [address] Stave Bolt Equalizer Obstetrics and Gynecology 01/28/22 07/30/22 Haja Page MD PhD [address] [place] [address] Consulting Physician Neurology 05/04/22 05/03/24 Pema Gill MD [address] [place] [address] Fellow Pulmonary Disease 06/21/22 07/30/22 Chandler Trejo MD [address] [facility] [place] [address] Consulting Physician Gastroenterology 07/31/22 02/18/24 Johan Marti MD [address] [place] [address] [address] [place] [address] Referring Physician Neurosurgery 02/06/23 05/03/24 Ariadne Shook, ROSITA [address] [place] [address] Nurse Practitioner Neurology 07/22/23 05/03/24 Pema Gill MD [address] [place] [address] Fellow Pulmonary Disease 07/22/23 07/22/23 Hero Jackman MD [address] [facility] NEUROLOGY SLEEP [facility] [address] [place] [address] Consulting Physician Sleep Medicine 07/22/23 Ronal Jackson MD [address] [place] [address] Consulting Physician Pulmonary Disease 02/19/24 Kristen Perez MD [address] [place] [address] Anesthesiologist Pain Management 02/19/24 Ryan Sanders MD [address] [address] Consulting Physician Urology 05/04/22 Geovanna Alvarenga DPM [address] [place] [address] Consulting Physician Foot and Ankle Surg 05/04/24 Ariadne Shook NP [address] [place] [address] Nurse Practitioner Neurology 06/01/24 Tabby Light RN [address] [facility] [address] [place] [address] Harness Puller 07/05/24 Junior Tobin MD [address] [place] [address] Consulting Physician Urology 07/21/24 documented as of this encounter
--- OUTSIDE RECORDS SUMMARY | 2025-02-25 11:18 | XMS_ITS | Encounter Summary ---
Author Organization [facility] Address [address] [place] [address] Phone Care Team Providers Care Air Hammer Operator Name Role Phone Anila Patino MD Primary Care Provider [phone] Salomon Medrano MD Unavailable [phone] Rosalinda Looney MD Unavailable Barrington Yanez MD Unavailable Shaquille Blanco MD Unavailable Onesimo Magaña MD Unavailable Lit Singer MD Unavailable Johan Marti MD Unavailable Tino Still MD Unavailable [phone] Matthias Christianson MD Unavailable Matt Richardson DO Unavailable [phone] Pema Gill MD Unavailable [phone] Jus Patel MD Unavailable Haja Luciano MD Unavailable Yasmine Yanes MD Unavailable Yasmine Yanes MD Unavailable [phone] Samantha Mir RN Unavailable Unavailable Tabby Mcclendon MD Unavailable Haja Page MD PhD Unavailable + Pema Gill MD Unavailable [phone] Chandler Trejo MD Unavailable [phone] Johan Marti MD Unavailable [phone] Bouchra Ariadne Ricarda PRESCHOOL PARAPROFESSIONAL Unavailable [phone] Pema Gill MD Unavailable [phone] Hero Jackman MD Unavailable Ronal Jackson MD Unavailable Kristen Perez MD Unavailable [phone] Ryan Sanders MD Unavailable Geovanna AlvarengaM Unavailable [phone] [facility] Camp[facility]riadne Ricarda PRESCHOOL PARAPROFESSIONAL Unavailable [phone] Tabby Light RN Unavailable [phone] Junior Tobin MD Unavailable Reason for Referral * Consultation (Routine) - Closed Specialty Diagnoses / Procedures Referred By Contac t Referred To Contact Urology Diagnoses Urethral syndrome NOS Anila Patino MD Phone: tel: fax: Ricky Lainez MD Phone: tel: fax: Referral ID Status Reason Start Date Expiration Date V isits Requested Visits Authorized [id number] Closed Specialty Services Required 12/26/2016 06/24/2017 1 1 Encounter Details Date Type Department Care Team (Late st Contact Info) Description 12/26/2016 Orders Only [facility] [address] [place] [address] Anila Patino MD [address] [place] [address] Urethral syndrome NOS (Primary Dx) Social History Tobacco Use Types Packs/Day Years Used Date Smoking Tobacco: Never Alcohol Use Standard Drinks/Week Comments No 0 (1 standard drink = 0.6 oz pur e alcohol) Comments Unknown Sex and Gender Information Value Date Recorded Sex Assigned at Not on file Legal Sex Female 4:42 AM LINER REPLACER Gender Identity Female 03/06/2022 7:30 PM CDT Sexual Orientation Straight 03/06/2022 7: 30 PM CDT documented as of this encounter Plan of Treatment Upcoming Encounters Date Type Department Care Team (Latest Contact Info) Description 02/25/2025 12:30 PM CDT Ancillary Procedure [place] Safe Deposit Attendant [address] [place] [phone] SSS (sick sinus syndrome) (HCC); Cardiac pacemaker in situ 09/07/2025 Orders Only [facility] [address] [place] [address] Scanning, Provider Scheduled Referrals Name Type Priority Associated Diagnoses Order Schedule Ambulatory referral to Urology Outpatient Referral Routine Urethral syndrome NOS Ordered: 12/26/2016 documented as of this encounter Visit Diagnoses Diagnosis Urethral syndrome NOS- Primary SSS (sick sinus syndrome) (HCC) Sinoatrial node dysfunction Cardiac pacemaker in situ documented in this encounter Additional Health Concerns Infection Onset Date Last Indicated Resolved Time COVID: Suspected 08/04/2020 08/04/2020 08/04/2020 2:35 PM LINER REPLACER COVID: Suspected 10/05/2020 10/05/2020 10/05/2020 1:07 PM CDT COVID: Suspected 12/16/2020 12/16/2020 12/16/2020 3:40 PM CDT COVID: Suspected 03/15/2021 03/15/2021 03/15/2021 8:52 AM CDT COVID: Suspected 08/15/2021 08/15/2021 08/16/2021 3:05 AM LINER REPLACER COVID: Suspected 05/20/2022 05/20/2022 05/20/2022 2:35 PM LINER REPLACER COVID19 05/20/2022 05/20/2022 05/30/2022 3:05 AM LINER REPLACER COVID: Recovered Comment:Added based on recent COVID infection. 05/30/2022 05/30/2022 08/28/2022 3:05 AM C DT COVID: Suspected 01/13/2023 01/14/2023 01/14/2023 3:05 AM CDT COVID: Suspected 05/02/2023 05/02/2023 05/02/2023 5:51 PM LINER REPLACER COVID: Suspected 10/10/2023 10/10/2023 10/10/2023 4:01 PM CDT COVID: Suspected 12/06/2024 12/06/2024 12/06/2024 12:57 PM CDT documented as of this encounter Care Teams Air Hammer Operator Relationship Specialty Start Date End Date Anila Patino MD PCP - General 09/13/16 Salomon Medrano MD [address] [facility] [address] [place] [address] Rheumatology 01/02/17 Rosalinda Looney MD [address] [facility] [address] [place] [address] Psychiatry 01/02/17 Barrington Yanez MD [address] [facility] [address] [place] [address] Pulmonary Disease 01/02/17 01/20/20 [place] [address] [address] Surgeon Orthopedic Surgery 01/02/17 01/27/22 [place] [address] [facility] [address] [place] [address] Otolaryngology 01/02/17 01/20/20 [place] [address] [facility] [address] [place] [address] Radiation Oncology 01/02/[address] [place] [address] [facility] [address] [place] [address] Neurosurgery 01/02/17 Tino Still MD [address] [place] [address] [address] [address] Surgeon Orthopedic Surgery 09/19/17 [place] [address] [facility] [address] [place] [address] Referring Physician Urology 09/19/17 01/20/[address] [place] [address] [facility] [address] [place] [address] Consulting Physician Gastroenterology 12/10/19 Pema Gill MD [address] [place] [address] Fellow Pulmonary Disease 01/21/20 02/18/24 Jus Patel MD [address] [place] [address] Consulting Physician Urology 01/21/20 02/05/23 Haja Luciano MD [address] [place] [address] Consulting Physician Cardiovascular Disease 12/21/20 Yasmine Yanes MD [address] [place] [address] Consulting Physician Cardiology 07/23/21 Yasmine Yanes MD [address] [place] [address] Consulting Physician Cardiology 07/23/21 01/27/22 Samantha Mir RN Registered Nurse Pulmonary Disease 01/10/22 02/18/24 Tabby Mcclendon MD [address] [place] [address] [employer] Obstetrics and Gynecology 01/28/22 07/30/22 Haja Page MD PhD [address] [place] [address] Consulting Physician Neurology 05/04/22 05/03/24 Pema Gill MD [address] [place] [address] Fellow Pulmonary Disease 06/21/22 07/30/22 Chandler Trejo MD [address] [facility] [place] [address] Consulting Physician Gastroenterology 07/31/22 02/18/24 Johan Marti MD [address] [facility] [place] [address] Referring Physician Neurosurgery 02/06/23 05/03/24 Ariadne Shook NP [address] [place] [address] Nurse Practitioner Neurology 07/22/23 05/03/24 Pema Gill MD [address] [place] [address] Fellow Pulmonary Disease 07/22/23 07/22/23 Hero Jackman MD [address] [facility] NEUROLOGY SLEEP [facility] [address] [place] [address] Consulting Physician Sleep Medicine 07/22/23 Ronal Jackson MD [address] [place] [address] Consulting Physician Pulmonary Disease 02/19/24 Kristen Perez MD [address] [place] [address] Anesthesiologist Pain Management 02/19/24 Ryan Sanders MD 2 [facility] [address] [place] [address] Consulting Physician Urology 05/04/22 Geovanna Alvarenga DPM [address] [place] [address] Consulting Physician Foot and Ankle Surg 05/04/24 Ariadne Shook NP [address] [place] [address] Nurse Practitioner Neurology 06/01/24 Tabby Light RN [address] [place] [address] [address] [place] [address] Bakery Technician 07/05/24 Junior Tobin MD 2 [facility] [address] [place] [address] Consulting Physician Urology 07/21/24 documented as of this encounter
--- OUTSIDE RECORDS SUMMARY | 2025-02-25 11:18 | XMS_ITS | Encounter Summary ---
Author Organization [facility] Medical Group Address [address] [facility] [address] [place] [address] Care Team Providers Care Instructor Nurse Name Role Phone Anila Patino MD Primary Care Provider + [phone] Anila Patino MD Primary Care Provider Salomon Medrano MD Unavailable [phone] Rosalinda Looney MD Unavailable [phone] Barrington Yanez MD Unavailable Shaquille Blanco MD Unavailable Onesimo Magaña MD Unavailable [phone] Lit Singer MD Unavailable [phone] Johan Marti MD Unavailable Tino Still MD Unavailable Matthias Christianson MD Unavailable Matt Richardson DO Unavailable [phone] Pema Gill MD Unavailable [phone] Jus Patel MD Unavailable [phone] Haja Luciano MD Unavailable [phone] Yasmine Yanes MD Unavailable [phone] JoaquínYasmine MD Unavailable [phone] Samantha Mir RN Unavailable Unavailable Tabby Mcclendon MD Unavailable Haja Page MD PhD Unavailable + Pema Gill MD Unavailable [phone] Chandler Trejo MD Unavailable [phone] Johan Marti MD Unavailable +[phone] Ariadne Shook CONTRACTING SUPPORT SPECIALIST Unavailable +[phone] Pema Gill MD Unavailable [phone] Hero Jackman MD Unavailable Ronal Jackson MD Unavailable Kristen Perez MD Unavailable [phone] Ryan Sanders MD Unavailable Geovanna AlvarengaM Unavailable [phone] [facility] Center[facility] palencia CONTRACTING SUPPORT SPECIALIST Unavailable [phone] Tabby Light RN Unavailable [phone] Junior Tobin MD Unavailable Encounter Details Date Type Department Care Team (Late st Contact Info) Description 08/13/2016 Orders Only [facility] ProviderAnastacio MD [address] [place] [address] Social History Tobacco Use Types Packs/Day Years Used Date Smoking Tobacco: Never Alcohol Use Standard Drinks/Week Comments No 0 (1 standard drink = 0.6 oz pur e alcohol) Comments Unknown Sex and Gender Information Value Date Recorded Sex Assigned at Not on file Legal Sex Female 4:42 AM TOP TRIMMER Gender Identity Female 03/06/2022 7:30 PM CDT Sexual Orientation Straight 03/06/2022 7: 30 PM CDT documented as of this encounter Plan of Treatment Upcoming Encounters Date Type Department Care Team (Latest Contact Info) Description 02/25/2025 12:30 PM CDT Ancillary Procedure [place] Curing Oven Attendant [address] [facility] [address] [place] [address] SSS (sick sinus syndrome) (HCC); Cardiac pacemaker in situ 09/07/2025 Orders Only [facility] [address] [place] [id number] Scanning, Provider documented as of this encounter Procedures Procedure Name Priority Date/Time Associated Diagnosis Comments CARDIOLOGY REPORT 08/13/2016 CARDIOLOGY REPORT 08/13/2016 documented in this encounter Results * CARDIOLOGY REPORT (08/13/2016) Anatomical Region Laterality Modality Other Narrative 08/13/2016 Ordered by an unspecified provider. Historical Provider CV CARDIAC SERVICES PROCE DURES [...] COVID: Suspected 08/04/2020 08/04/2020 08/04/2020 2:35 PM TOP TRIMMER COVID: Suspected 10/05/2020 10/05/2020 10/05/2020 1:07 PM CDT COVID: Suspected 12/16/2020 12/16/2020 12/16/2020 3:40 PM CDT COVID: Suspected 03/15/2021 03/15/2021 03/15/2021 8:52 AM CDT COVID: Suspected 08/15/2021 08/15/2021 08/16/2021 3:05 AM TOP TRIMMER COVID: Suspected 05/20/2022 05/20/2022 05/20/2022 2:35 PM TOP TRIMMER COVID19 05/20/2022 05/20/2022 05/30/2022 3:05 AM TOP TRIMMER COVID: Recovered Comment:Added based on recent COVID infection. 05/30/2022 05/30/2022 08/28/2022 3:05 AM C DT COVID: Suspected 01/13/2023 01/14/2023 01/14/2023 3:05 AM CDT COVID: Suspected 05/02/2023 05/02/2023 05/02/2023 5:51 PM TOP TRIMMER COVID: Suspected 10/10/2023 10/10/2023 10/10/2023 4:01 PM CDT COVID: Suspected 12/06/2024 12/06/2024 12/06/2024 12:57 PM CDT documented as of this encounter Care Teams Instructor Nurse Relationship Specialty Start Date End Date Anila Patino MD PCP - General 09/13/16 Anila Patino MD PCP - General 08/12/11 09/12/16 Salomon Medrano MD [address] [facility] [address] [place] [address] Rheumatology 01/02/17 Rosalinda Looney MD [address] [facility] [address] [place] [address] Psychiatry 01/02/17 Barrington Yanez MD [address] [facility] [address] [place] [address] Pulmonary Disease 01/02/17 01/20/20 [place] [address] [address] Surgeon Orthopedic Surgery 01/02/17 01/27/22 [place] [address] [facility] [address] [place] [address] Otolaryngology 01/02/17 01/20/20 [place] [address] [facility] [address] [place] [address] Radiation Oncology 01/02/17 [place] [address] [facility] [address] [place] [address] Neurosurgery 01/02/17 Tino Still MD [address] [place] [address] DR TOR[address] [facility] [address] [place] [address] Surgeon Orthopedic Surgery 09/19/17 [place] [address] [facility] [address] [place] [address] Referring Physician Urology 09/19/17 01/20/20 [place] [address] [facility] [address] [place] [address] Consulting Physician Gastroenterology 12/10/19 Pema Gill MD [address] [place] [address] Fellow Pulmonary Disease 01/21/20 02/18/24 Jus Patel MD [address] [place] [address] Consulting Physician Urology 01/21/20 02/05/23 Haja Luciano MD [address] [place] [address] Consulting Physician Cardiovascular Disease 12/21/20 Yasmine Yanes MD [address] [place] [address] Consulting Physician Cardiology 07/23/21 Yasmine Yanes MD [address] [place] [address] Consulting Physician Cardiology 07/23/21 01/27/22 Samantha Mir, RN Registered Nurse Pulmonary Disease 01/10/22 02/18/24 Tabby Mcclendon MD [address] [place] [address] Splitter Tender Obstetrics and Gynecology 01/28/22 07/30/22 Haja Page MD PhD [address] [place] [address] Consulting Physician Neurology 05/04/22 05/03/24 Pema Gill MD [address] [place] [address] Fellow Pulmonary Disease 06/21/22 07/30/22 Chandler Trejo MD [address] [facility] [place] [address] Consulting Physician Gastroenterology 07/31/22 02/18/24 Johan Marti MD [address] [facility] [place] [address] Referring Physician Neurosurgery 02/06/23 05/03/24 Ariadne Shook NP [address] [place] [address] Nurse Practitioner Neurology 07/22/23 05/03/24 Pema Gill MD [address] [place] [address] Fellow Pulmonary Disease 07/22/23 07/22/23 Hero Jackman MD [address] [facility] NEUROLOGY SLEEP [address] [address] Consulting Physician Sleep Medicine 07/22/23 Ronal Jackson MD [address] [place] [address] Consulting Physician Pulmonary Disease 02/19/24 Kristen Perez MD [address] [place] [address] Anesthesiologist Pain Management 02/19/24 Ryan Sanders MD [address] [place] [address] Consulting Physician Urology 05/04/22 Geovanna Alvarenga DPM [address] [place] [address] Consulting Physician Foot and Ankle Surg 05/04/24 Ariadne Shook NP [address] [place] [address] Nurse Practitioner Neurology 06/01/24 Tabby Light RN [address] [place] [address] [address] [place] [address] Medical Dir 07/05/24 Junior Tobin MD [address] [facility] [address] [place] [address] Consulting Physician Urology 07/21/24 documented as of this encounter
--- OUTSIDE RECORDS SUMMARY | 2025-02-25 11:18 | XMS_ITS | Encounter Summary ---
Author Organization [facility] Address [address] [facility] [address] Phone Care Team Providers Care Silver Cleaner Name Role Phone Anila Patino MD Primary Care Provider [phone] Tj Bonner MD Unavailable [phone] Srinath RodriguezM Unavailable [phone] Buster Xiong Unavailable Unavailable Barrington Yanez MD Unavailable Kai LOUISE MD, Courtney Unavailable [phone] Haja Jones MD Unavailable [phone] Reason for Visit * Reason Comments Medication Refill Encounter Details Date Type Department Care Team (Late st Contact Info) Description 08/13/2023 Refill [facility] [address] [place] [address] Betty Quinn III, MD [address] [place] [address] Medication Refill Social History Tobacco Use Types [...] Haja Jones MD - 08/18/2023 8:12 AM DRUM STOCK CLERK Patient's urine study is negative for UTI. No antibiotics necessary STOCK CLERK * Telephone Encounter - Miriam Barnes RN [...] Dept 07/21/23 Procedure Visit Haja Jones MD [facility] [place] 04/28/23 Procedure Visit Betty Quinn III, MD [facility] [place] 01/20/23 Procedure Visit Betty Quinn III, MD [facility] [place] 12/23/22 Office Visit Betty Quinn III, MD [facility] [place] Showing recent visits within past 365 days and meeting all other requirements Future Appointments Date Type Provider Dept 10/27/23 Appointment Haja Jones MD [facility] [place] Showing future appointments within next 90 days and meeting all other requirements STOCK CLERK documented in this encounter Plan of Treatment Upcoming Encounters Date Type Department Care Team (Late st Contact Info) Description 03/14/2025 11:30 AM CDT Office Visit [facility] [address] [place] [address] Haja Jones MD [address] [place] [address] documented as of this encounter Visit Diagnoses Diagnosis Urethral syndrome Urethral syndrome NOS documented in this encounter Additional Health Concerns Infection Onset Date Last Indicated Resolved Time COVID - 19 06/30/2024 06/30/2024 06/30/2024 1:11 AM DRUM STOCK CLERK C. difficile Rule-Out 07/01/2024 07/01/20242024 5:24 PM DRUM STOCK CLERK ESBL 11/01/2024 11/01/2024 Assessment Noted Time PHQ-9 Depression Total Score: 1 10/18/19 21 10:30 AM CDT documented as of this encounter Care Teams Silver Cleaner Relationship Specialty Start Date End Date Anila Patino MD [address] [place] [address] PCP - General Internal Medicine 04/15/15 Tj Bonner MD [address] [place] [address] Consulting Physician Neurology 09/01/15 05/02/24 Srinath Rodriguez DPM [address] [place] [address] Podiatry 08/01/16 Buster Xiong [address] [place] [address] 08/01/16 Barrington Yanez MD [address] [place] [address] Consulting Physician Pulmonary Disease 09/13/16 Betty Quinn III, MD [address] [place] [address] Consulting Physician Urology 12/23/22 Haja Jones MD [address] [facility] [address] [place] [address] Consulting Physician Urology 07/21/23 documented as of this encounter
--- OUTSIDE RECORDS SUMMARY | 2025-02-25 11:18 | XMS_ITS | Encounter Summary ---
Author Organization [facility] Address [address] [place] [address] Phone Care Team Providers Care Global Mobility Specialist Name Role Phone Anila Patino MD Primary Care Provider [phone] Salomon Medrano MD Unavailable [phone] Rosalinda Looney MD Unavailable Shaquille Blanco MD Unavailable Lit Singer MD Unavailable Johan Marti MD Unavailable Tino Still MD Unavailable Matt Richardson DO Unavailable [phone] Pema Gill MD Unavailable [phone] Jus Patel MD Unavailable Haja Luciano MD Unavailable Yasmine Yanes MD Unavailable [phone] Yasmine Yanes MD Unavailable [phone] Samantha Mir RN Unavailable Unavailable Tabby Mcclendon MD Unavailable Haja Page MD PhD Unavailable + Pema Gill MD Unavailable [phone] Chandler Trejo MD Unavailable [phone] Johan Marti MD Unavailable [phone] [place] Ariadne Chowdary INCOME TAX AUDITOR Unavailable [phone] Pema Gill MD Unavailable [phone] Hero Jackman MD Unavailable Ronal Jackson MD Unavailable Kristen Perez MD Unavailable [phone] Ryan Sanders MD Unavailable Geovanna AlvarengaM Unavailable [phone] [facility] Ricarda INCOME TAX AUDITOR Unavailable [phone] Tabby Light RN Unavailable [phone] Junior Tobin MD Unavailable Encounter Details Date [...] How often do you attend chur or church services? More than 4 times per year 07/07/2020 Do you belong to any clubs o r organizations such as mosque groups, unions, fraternal or athletic groups, or [...] on file Legal Sex Female 4:42 AM SHOW HOST/HOSTESS Gender Identity Female 03/06/2022 7:30 PM CDT Sexual Orientation Straight 03/06/2022 7: 30 PM CDT Occupation Industry Job Start Date Job End Date disabled Not on file Not on file Not on file documented as of this encounter Plan of Treatment Upcoming Encounters Date Type Department Care Team (Latest Contact Info) Description 02/25/2025 12:30 PM CDT Ancillary Procedure [place] Environmental Compliance Specialist [address] [place] [address] SSS (sick sinus syndrome) (HCC); Cardiac pacemaker in situ 09/07/2025 Orders Only [facility] [address] [place] [address] Scanning, Provider documented as of [...] COVID: Suspected 08/15/2021 08/15/2021 08/16/2021 3:05 AM SHOW HOST/HOSTESS COVID: Suspected 05/20/2022 05/20/2022 05/20/2022 2:35 PM SHOW HOST/HOSTESS COVID19 05/20/2022 05/20/2022 05/30/2022 3:05 AM SHOW HOST/HOSTESS COVID: Recovered Comment:Added based on recent COVID infection. 05/30/2022 05/30/2022 08/28/2022 3:05 AM C DT COVID: Suspected 01/13/2023 01/14/2023 01/14/2023 3:05 AM CDT COVID: Suspected 05/02/2023 05/02/2023 05/02/2023 5:51 PM SHOW HOST/HOSTESS COVID: Suspected 10/10/2023 10/10/2023 10/10/2023 4:01 PM CDT COVID: Suspected 12/06/2024 12/06/2024 12/06/2024 12:57 PM CDT documented as of this encounter Care Teams Global Mobility Specialist Relationship Specialty Start Date End Date Anila Patino MD PCP - General 09/13/16 Salomon Medrano MD [address] [facility] [address] [place] [address] Rheumatology 01/02/17 Rosalinda Looney MD [address] [facility] [address] [place] [address] Psychiatry 01/02/17 [place] [address] [address] Surgeon Orthopedic Surgery 01/02/17 01/27/22 [place] [address] [facility] [address] [place] [address] Radiation Oncology 01/02/17 [place] [address] [facility] [address] [place] [address] Neurosurgery 01/02/17 Tino Still MD [address] [place] [address] DR BRIAN Eagle [facility] [address] [place] [address] Surgeon Orthopedic Surgery 09/19/17 Matt Richardson DO [address] [place] [address] DR BRIAN [place] [facility] [address] [place] [address] Consulting Physician Gastroenterology 12/10/19 Pema Gill MD [address] [place] [address] Fellow Pulmonary Disease 01/21/20 02/18/24 Jus Patel MD [address] [place] [address] Consulting Physician Urology 01/21/20 02/05/23 Haja Luciano MD [address] [place] [address] Consulting Physician Cardiovascular Disease 12/21/20 Yasmine Yanes MD [address] [place] [address] Consulting Physician Cardiology 07/23/21 Yasmine Yanes MD [address] [place] [address] Consulting Physician Cardiology 07/23/21 01/27/22 Samantha Mir, CARINA Registered Nurse Pulmonary Disease 01/10/22 02/18/24 Tabby Mcclendon MD [address] [place] [address] Band Edger Obstetrics and Gynecology 01/28/22 07/30/22 Haja Page MD PhD [address] [place] [address] Consulting Physician Neurology 05/04/22 05/03/24 Pema Gill MD [address] [place] [address] Fellow Pulmonary Disease 06/21/22 07/30/22 Chandler Trejo MD [address] [facility] [place] [address] Consulting Physician Gastroenterology 07/31/22 02/18/24 Johan Marti MD [address] [facility] [place] [address] Referring Physician Neurosurgery 02/06/23 05/03/24 Ariadne Shook, ROSITA [address] [place] [address] Nurse Practitioner Neurology 07/22/23 05/03/24 Pema Gill MD [address] [place] [address] Fellow Pulmonary Disease 07/22/23 07/22/23 Hero Jackman MD [address] [facility] SLEEP [facility] [address] [place] [address] Consulting Physician Sleep Medicine 07/22/23 Ronal Jackson MD [address] [place] [address] Consulting Physician Pulmonary Disease 02/19/24 Kristen Perez MD [address] [place] [address] Anesthesiologist Pain Management 02/19/24 Ryan Sanders MD [address] [address] Consulting Physician Urology 05/04/22 Geovanna Alvarenga DPM [address] [place] [address] Consulting Physician Foot and Ankle Surg 05/04/24 Ariadne Shook NP [address] [place] [address] Nurse Practitioner Neurology 06/01/24 Tabby Light RN [address] [place] [address] [address] [place] [address] Electrical Estimator 07/05/24 Junior Tobin MD [address] [place] [address] Consulting Physician Urology 07/21/24 documented as of this encounter
--- OUTSIDE RECORDS SUMMARY | 2025-02-25 11:19 | XMS_ITS | Clinical Summary ---
Author Organization [facility] Address [address] [facility] [place] [address] Care Team Providers Care Booking Prizer Name Role Phone Salomon Medrano MD Unavailable Unavailable Chandler Trejo MD Unavailable Cinthya Patino MD Primary Care Provider [phone] Source Comments [facility],non-owned Affiliates and Associated Physician Practices is amultiple site organization consisting of ambulatory clinics and hospital sitesin [place], [place], [place] and [place]. This disclosure is being madepursuant to the Care Everywhere program and may not contain all information available regarding this patient. Last updated 18.[facility] Allergies Active Allergy Reactions Criticality Noted [...] predniSONE (DELTASONE) 5 MG tabletIndication s:Rheumatoid arthritis(714.0) ([facility]) Take 1 Tab by mouth once daily. 30 Tab 12 10/06/19 14 Active acetaminophen (TYLENOL) 500 MG tabletIndication s:Rheumatoid arthritis(714.0) ([facility]) Take 2 Tabs by mouth 3 times [...] azaTHIOprine (IMURAN) 50 MG tabletIndication s:Rheumatoid arthritis(714.0) ([facility]) Take 3 Tabs by mouth once daily. 90 Tab 12 04/04/20 14 Active traMADol (ULTRAM) 50 MG tabletIndication s:Rheumatoid arthritis(714.0) ([facility]) Take 1-2 Tabs by mouth 3 times daily as needed for Pain. WITH OVER THE COUNTER TYLENOL FOR PAIN 180 Tab 3 04/04/20 14 Active adalimumab (HUMIRA) 40 MG/0.8ML injectionIndicat ions:Rheumatoid arthritis(714.0) ([facility]) Inject 0.8 mL subcutaneously every 14 days. 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 Will discuss seeing a GI oracle iam consultant Recently no sign of trend regarding [...] on file Legal Sex Female 4:21 AM PROFESSOR OF ENVIRONMENTAL SCIENCE Gender Identity Not on file Sexual Orientation Not on file 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 Not on file Not on file Last Filed Vital Signs Vital Sign Reading Time Taken Comments Blood Pressure 126/84 08/05/2016 4:03 PM PROFESSOR OF ENVIRONMENTAL SCIENCE Pulse 90 08/05/2016 4:03 PM PROFESSOR OF ENVIRONMENTAL SCIENCE Temperature 36.8 C (98.3 F) 08/05/2016 4:03 PM PROFESSOR OF ENVIRONMENTAL SCIENCE Respiratory Rate 20 08/05/2016 4:03 PM PROFESSOR OF ENVIRONMENTAL SCIENCE Oxygen Saturation 95% 08/05/2016 4:03 PM PROFESSOR OF ENVIRONMENTAL SCIENCE Inhaled Oxygen Concentration - - Weight 75.8 kg (167 lb) 08/05/2016 4:03 PM PROFESSOR OF ENVIRONMENTAL SCIENCE Height 151.1 cm (4' 11.5) 08/05/2016 4:03 PM CS T Body Mass Index 33.17 08/05/2016 4:03 PM PROFESSOR OF ENVIRONMENTAL SCIENCE Plan of Treatment Health Maintenance Due Date [...] HEPATITIS C ANTIBODY Routine 04/22/2011 2:21 PM PROFESSOR OF ENVIRONMENTAL SCIENCE High risk medications (not anticoagulants) long-term use Rheumatoid arthritis from Last 3 Months or Most Recently Relevant to Health Maintenance Results * HEPATITIS C ANTIBODY (04/22/2011 2:21 PM PROFESSOR OF ENVIRONMENTAL SCIENCE) Hepatitis C Virus Antibody <0.1 0.0 - [...] BLOOD SPECIMEN / Unknown 04/22/2011 2:21 PM PROFESSOR OF ENVIRONMENTAL SCIENCE 04/22/2011 9:24 PM PROFESSOR OF ENVIRONMENTAL SCIENCE Narrative Resulting Agency Comment [facility] [address] [phone] us Salomon Medrano MD LAB - CHEMISTRY ORDERABLES Lorelei l Result [facility] ACCOUNT BILL [id number] [place] [address] from Last 3 Months or Most Recently Relevant to Health Maintenance Insurance [facility] MANAGED MEDICARE AD[place] [id number] MANAGED MEDICARE ADV Care Teams Booking Prizer Relationship Specialty Start Date End Date Cinthya Patino MD [address] [place] [address] PCP - General Internal Medicine 11/29/13 Salomon Medrano MD Rheumatology 04/01/11 Chandler Trejo MD Gastroenterology 11/29/13
--- OUTSIDE RECORDS SUMMARY | 2025-02-25 11:19 | XMS_ITS | Encounter Summary ---
Author Organization [place] [facility] Address [address] [place] [address] Phone Care Team Providers Care Benefit Director Name Role Phone Anila Patino MD Primary Care Provider [phone] Salomon Medrano MD Unavailable [phone] Rosalinda Looney MD Unavailable Shaquille Blanco MD Unavailable Lit Singer MD Unavailable Johan Marti MD Unavailable Tino Still MD Unavailable Matt Richardson DO Unavailable [phone] Pema Gill MD Unavailable [phone] Jus Patel MD Unavailable [phone] Haja Luciano MD Unavailable Yasmine Yanes MD Unavailable Yasmine Yanes MD Unavailable Samantha Mir RN Unavailable Unavailable Tabby Mcclendon MD Unavailable Haja Page MD PhD Unavailable + Pema Gill MD Unavailable [phone] Chandler Trejo MD Unavailable [phone] Johan Marti MD Unavailable [phone] MichaelAriadne palencia Ricarda STRIP CLEANER Unavailable +[phone] Pema Gill MD Unavailable [phone] Hero Jackman MD Unavailable Ronal Jackson MD Unavailable Kristen Perez MD Unavailable [phone] Ryan Sanders MD Unavailable Geovanna AlvarengaM Unavailable +[phone] [facility] Ricarda STRIP CLEANER Unavailable [phone] Tabby Light RN Unavailable [phone] Junior Tobin MD Unavailable Encounter Details Date Type Department Care Team (Late st Contact Info) Description 05/09/2020 Orders Only [facility] 1 [place] [address] Scanning, Provider Social History Tobacco [...] on file Legal Sex Female 4:42 AM MARKETING OPERATIONS ASSOCIATE Gender Identity Female 03/06/2022 7:30 PM CDT Sexual Orientation Straight 03/06/2022 7: 30 PM CDT Occupation Industry Job Start Date Job End Date disabled Not on file Not on file Not on file documented as of this encounter Plan of Treatment Upcoming Encounters Date Type Department Care Team (Latest Contact Info) Description 02/25/2025 12:30 PM CDT Ancillary Procedure [place] Business Operations Consultant [address] [facility] [address] [place] [address] SSS (sick sinus syndrome) (HCC); Cardiac pacemaker in situ 09/07/2025 Orders Only [facility] [address] [place] [address] Scanning, Provider documented as of this encounter [...] COVID: Suspected 08/04/2020 08/04/2020 08/04/2020 2:35 PM MARKETING OPERATIONS ASSOCIATE COVID: Suspected 10/05/2020 10/05/2020 10/05/2020 1:07 PM CDT COVID: Suspected 12/16/2020 12/16/2020 12/16/2020 3:40 PM CDT COVID: Suspected 03/15/2021 03/15/2021 03/15/2021 8:52 AM CDT COVID: Suspected 08/15/2021 08/15/2021 08/16/2021 3:05 AM MARKETING OPERATIONS ASSOCIATE COVID: Suspected 05/20/2022 05/20/2022 05/20/2022 2:35 PM MARKETING OPERATIONS ASSOCIATE COVID19 05/20/2022 05/20/2022 05/30/2022 3:05 AM MARKETING OPERATIONS ASSOCIATE COVID: Recovered Comment:Added based on recent COVID infection. 05/30/2022 05/30/2022 08/28/2022 3:05 AM C DT COVID: Suspected 01/13/2023 01/14/2023 01/14/2023 3:05 AM CDT COVID: Suspected 05/02/2023 05/02/2023 05/02/2023 5:51 PM MARKETING OPERATIONS ASSOCIATE COVID: Suspected 10/10/2023 10/10/2023 10/10/2023 4:01 PM CDT COVID: Suspected 12/06/2024 12/06/2024 12/06/2024 12:57 PM CDT documented as of this encounter Care Teams Benefit Director Relationship Specialty Start Date End Date Anila Patino MD PCP - General 09/13/16 Salomon Medrano MD [address] [facility] [address] [place] [address] Rheumatology 01/02/17 Rosalinda Looney MD [address] [facility] [address] [place] [address] Psychiatry 01/02/17 [place] [address] [address] [address] Surgeon Orthopedic Surgery 01/02/17 01/27/22 [place] [address] [address] Radiation Oncology 01/02/17 [place] [address] [address] [address] Neurosurgery 01/02/17 Tino Still MD [address] [facility] [address] [place] [address] Surgeon Orthopedic Surgery 09/19/17 Matt Richardson DO [address] [place] [address] [address]RI[address] [place] [address] Consulting Physician Gastroenterology 12/10/19 Pema Gill MD [address] [place] [address] Fellow Pulmonary Disease 01/21/20 02/18/24 Jus Patel MD [address] [place] [address] Consulting Physician Urology 01/21/20 02/05/23 Haja Luciano MD [address] [place] [address] Consulting Physician Cardiovascular Disease 12/21/20 Yasmine Yanes MD [address] [place] [address] Consulting Physician Cardiology 07/23/21 Yasmine Yanes MD [address] [place] [address] Consulting Physician Cardiology 07/23/21 01/27/22 Samantha Mir, CARINA Registered Nurse Pulmonary Disease 01/10/22 02/18/24 Tabby Mcclendon MD [address] [place] [address] Dye Colorist Dyer Obstetrics and Gynecology 01/28/22 07/30/22 Haja Page MD PhD [address] [place] [address] Consulting Physician Neurology 05/04/22 05/03/24 Pema Gill MD [address] [place] [address] Fellow Pulmonary Disease 06/21/22 07/30/22 Chandler Trejo MD [address] [place] [address] ALBA Sharp [facility] [place] [address] Consulting Physician Gastroenterology 07/31/22 02/18/24 Johan Marti MD [address] [place] [address] ALBA Lila [facility] [place] [address] Referring Physician Neurosurgery 02/06/23 05/03/24 Ariadne Shook, ROSITA [address] [place] [address] Nurse Practitioner Neurology 07/22/23 05/03/24 Pema Gill MD [address] [place] [address] Fellow Pulmonary Disease 07/22/23 07/22/23 Hero Jackman MD [address] [facility] NEUROLOGY SLEEP [facility] [address] [place] [address] Consulting Physician Sleep Medicine 07/22/23 Ronal Jackson MD [address] [place] [address] Consulting Physician Pulmonary Disease 02/19/24 Kristen Perez MD [address] [place] [address] Anesthesiologist Pain Management 02/19/24 Ryan Sanders MD [address] [address] Consulting Physician Urology 05/04/22 Geovanna Alvarenga DPM [address] [place] [address] Consulting Physician Foot and Ankle Surg 05/04/24 Ariadne Shook NP [address] [place] [address] Nurse Practitioner Neurology 06/01/24 Tabby Light, RN [address] [place] [address] [employer] Tier 07/05/24 Junior Tobin MD [address] [address] Consulting Physician Urology 07/21/24 documented as of this encounter
--- OUTSIDE RECORDS SUMMARY | 2025-02-25 11:19 | XMS_ITS | Encounter Summary ---
Author Organization [place] [facility] Address [address] [place] [address] Phone Care Team Providers Care Pickle Solution Maker Name Role Phone Anila Patino MD Primary Care Provider [phone] Salomon Medrano MD Unavailable [phone] Rosalinda Looney MD Unavailable Shaquille Blanco MD Unavailable Lit Singer MD Unavailable Johan Marti MD Unavailable Tino Still MD Unavailable Matt Richardson DO Unavailable [phone] Pema Gill MD Unavailable [phone] Jus Patel MD Unavailable Haja Luciano MD Unavailable [phone] Yasmine Yanes MD Unavailable Yasmine Yanes MD Unavailable Samantha Mir RN Unavailable Unavailable Tabby Mcclendon MD Unavailable Haja Page MD PhD Unavailable + Pema Gill MD Unavailable [phone] Chandler Trejo MD Unavailable [phone] Johan Marti MD Unavailable MichaelAriadne palencia Ricarda CORRESPONDENCE COORDINATOR Unavailable [phone] Pema Gill MD Unavailable [phone] Hero Jackman MD Unavailable Ronal Jackson MD Unavailable Kristen Perez MD Unavailable Ryan Sanders MD Unavailable Geovanna AlvarengaM Unavailable [phone] [facility] Ricarda CORRESPONDENCE COORDINATOR Unavailable [phone] Tabby Light RN Unavailable [phone] Junior Tobin MD Unavailable Encounter Details Date Type Department Care Team (Late st Contact Info) Description 05/01/2020 Orders Only [facility] 1 [place] [address] Scanning, Provider Social History Tobacco [...] on file Legal Sex Female 4:42 AM SPORTS CLERK Gender Identity Female 03/06/2022 7:30 PM CDT Sexual Orientation Straight 03/06/2022 7: 30 PM CDT Occupation Industry Job Start Date Job End Date disabled Not on file Not on file Not on file documented as of this encounter Plan of Treatment Upcoming Encounters Date Type Department Care Team (Latest Contact Info) Description 02/25/2025 12:30 PM CDT Ancillary Procedure [place] Qa Reviewer [address] [facility] [address] [place] [address] SSS (sick sinus syndrome) (HCC); Cardiac pacemaker in situ 09/07/2025 Orders Only [facility] [address] [place] [address] Scanning, Provider documented as of this encounter [...] COVID: Suspected 08/04/2020 08/04/2020 08/04/2020 2:35 PM SPORTS CLERK COVID: Suspected 10/05/2020 10/05/2020 10/05/2020 1:07 PM CDT COVID: Suspected 12/16/2020 12/16/2020 12/16/2020 3:40 PM CDT COVID: Suspected 03/15/2021 03/15/2021 03/15/2021 8:52 AM CDT COVID: Suspected 08/15/2021 08/15/2021 08/16/2021 3:05 AM SPORTS CLERK COVID: Suspected 05/20/2022 05/20/2022 05/20/2022 2:35 PM SPORTS CLERK COVID19 05/20/2022 05/20/2022 05/30/2022 3:05 AM SPORTS CLERK COVID: Recovered Comment:Added based on recent COVID infection. 05/30/2022 05/30/2022 08/28/2022 3:05 AM C DT COVID: Suspected 01/13/2023 01/14/2023 01/14/2023 3:05 AM CDT COVID: Suspected 05/02/2023 05/02/2023 05/02/2023 5:51 PM SPORTS CLERK COVID: Suspected 10/10/2023 10/10/2023 10/10/2023 4:01 PM CDT COVID: Suspected 12/06/2024 12/06/2024 12/06/2024 12:57 PM CDT documented as of this encounter Care Teams Pickle Solution Maker Relationship Specialty Start Date End Date Anila Patino MD PCP - General 09/13/16 Salomon Medrano MD [address] [place] [facility] [address] [place] [address] Rheumatology 01/02/17 Rosalinda Looney MD [address] [facility] [facility] [facility] [address] [place] [address] Psychiatry 01/02/17 [place] [address] [address] [address] Surgeon Orthopedic Surgery 01/02/17 01/27/22 [place] [address] [address] [address] Radiation Oncology 01/02/17 [place] [address] [address] [address] Neurosurgery 01/02/17 Tino Still MD [address] [place] [address] [address] BRIAN [address] AL[address] [place] [address] Surgeon Orthopedic Surgery 09/19/17 Matt Richardson DO [address] [place] [address] [address]RI[address] [place] [address] Consulting Physician Gastroenterology 12/10/19 Pema Gill MD [address] [place] [address] Fellow Pulmonary Disease 01/21/20 02/18/24 Jus Patel MD [address] [place] [address] Consulting Physician Urology 01/21/20 02/05/23 Haja Luciano MD [address] [place] [address] Consulting Physician Cardiovascular Disease 12/21/20 Yasmine Yanes MD [address] [place] [address] Consulting Physician Cardiology 07/23/21 Yasmine Yanes MD [address] [place] [address] Consulting Physician Cardiology 07/23/21 01/27/22 Samantha Mir RN Registered Nurse Pulmonary Disease 01/10/22 02/18/24 Tabby Mcclendon MD [address] [place] [address] Machine Tracer Obstetrics and Gynecology 01/28/22 07/30/22 Haja Page MD PhD [address] [place] [address] Consulting Physician Neurology 05/04/22 05/03/24 Pema Gill MD [address] [place] [address] Fellow Pulmonary Disease 06/21/22 07/30/22 Chandler Trejo MD [address] [place] [address] [facility] [address] [facility] [place] [address] Consulting Physician Gastroenterology 07/31/22 02/18/24 Johan Marti MD [address] [place] [address] [facility] Lila [facility] [place] [address] Referring Physician Neurosurgery 02/06/23 05/03/24 Ariadne Shook, ROSITA [address] [place] [address] Nurse Practitioner Neurology 07/22/23 05/03/24 Pema Gill MD [address] [place] [address] Fellow Pulmonary Disease 07/22/23 07/22/23 Hero Jackman MD [address] [facility] SLEEP [facility], [facility] [address] [place] [address] Consulting Physician Sleep Medicine 07/22/23 Ronal Jackson MD [address] [place] [address] Consulting Physician Pulmonary Disease 02/19/24 Kristen Perez MD [address] [place] [address] Anesthesiologist Pain Management 02/19/24 Ryan Sanders MD [address] [address] Consulting Physician Urology 05/04/22 Geovanna Alvarenga DPM [address] [place], [place] [address] Consulting Physician Foot and Ankle Surg 05/04/24 Ariadne Shook, ROSITA [address] [place] [address] Nurse Practitioner Neurology 06/01/24 Tabby Light, RN [address] [place] [address] [address] [place] [address] Applications Systems Engineer 07/05/24 Junior Tobin MD [address] [address] Consulting Physician Urology 07/21/24 documented as of this encounter
--- OUTSIDE RECORDS SUMMARY | 2025-02-25 11:19 | XMS_ITS | Encounter Summary ---
Author Organization [place] [facility] Address [address] [place] [address] Phone Care Team Providers Care Life Insurance Specialist Name Role Phone Anila Patino MD Primary Care Provider [phone] Salomon Medrano MD Unavailable [phone] Rosalinda Looney MD Unavailable Shaquille Blanco MD Unavailable Lit Singer MD Unavailable Johan Marti MD Unavailable Tino Still MD Unavailable Matt Richardson DO Unavailable [phone] Pema Gill MD Unavailable [phone] Jus Patel MD Unavailable Haja Luciano MD Unavailable Yasmine Yanes MD Unavailable Yasmine Yanes MD Unavailable Samantha Mir RN Unavailable Unavailable Tabby Mcclendon MD Unavailable Haja Page MD PhD Unavailable + Pema Gill MD Unavailable [phone] Chandler Trejo MD Unavailable [phone] Johan Marti MD Unavailable [phone] MichaelAriadne palencia Ricarda MANAGER CONSUMER Unavailable [phone] Pema Gill MD Unavailable [phone] Hero Jackman MD Unavailable Ronal Jackson MD Unavailable Kristen Perez MD Unavailable [phone] Ryan Sanders MD Unavailable Geovanna AlvarengaM Unavailable [phone] [facility] Ricarda MANAGER CONSUMER Unavailable [phone] Tabby Light RN Unavailable [phone] Junior Tobin MD Unavailable Encounter Details Date Type Department Care Team (Late st Contact Info) Description 05/06/2020 Orders Only [facility] 1 [place] [address] Scanning, Provider Social History Tobacco [...] on file Legal Sex Female 4:42 AM RACING SECRETARY Gender Identity Female 03/06/2022 7:30 PM CDT Sexual Orientation Straight 03/06/2022 7: 30 PM CDT Occupation Industry Job Start Date Job End Date disabled Not on file Not on file Not on file documented as of this encounter Plan of Treatment Upcoming Encounters Date Type Department Care Team (Latest Contact Info) Description 02/25/2025 12:30 PM CDT Ancillary Procedure [place] Miter Sawyer [address] [facility] [address] [place] [address] SSS (sick sinus syndrome) (HCC); Cardiac pacemaker in situ 09/07/2025 Orders Only [facility] [address] [place] [address] Scanning, Provider documented as of this encounter [...] COVID: Suspected 08/04/2020 08/04/2020 08/04/2020 2:35 PM RACING SECRETARY COVID: Suspected 10/05/2020 10/05/2020 10/05/2020 1:07 PM CDT COVID: Suspected 12/16/2020 12/16/2020 12/16/2020 3:40 PM CDT COVID: Suspected 03/15/2021 03/15/2021 03/15/2021 8:52 AM CDT COVID: Suspected 08/15/2021 08/15/2021 08/16/2021 3:05 AM RACING SECRETARY COVID: Suspected 05/20/2022 05/20/2022 05/20/2022 2:35 PM RACING SECRETARY COVID19 05/20/2022 05/20/2022 05/30/2022 3:05 AM RACING SECRETARY COVID: Recovered Comment:Added based on recent COVID infection. 05/30/2022 05/30/2022 08/28/2022 3:05 AM C DT COVID: Suspected 01/13/2023 01/14/2023 01/14/2023 3:05 AM CDT COVID: Suspected 05/02/2023 05/02/2023 05/02/2023 5:51 PM RACING SECRETARY COVID: Suspected 10/10/2023 10/10/2023 10/10/2023 4:01 PM CDT COVID: Suspected 12/06/2024 12/06/2024 12/06/2024 12:57 PM CDT documented as of this encounter Care Teams Life Insurance Specialist Relationship Specialty Start Date End Date Anila Patino MD PCP - General 09/13/16 Salomon Medrano MD [address] [facility] [address] [place] [address] Rheumatology 01/02/17 Rosalinda Looney MD [address] [facility] [address] [place] [address] Psychiatry 01/02/17 [place] [address] [address] Surgeon Orthopedic Surgery 01/02/17 01/27/22 [place] [address] [address] Radiation Oncology 01/02/17 [place] [address] [address] [address] Neurosurgery 01/02/17 Tino Still MD [address] [place] [address] [address] BRIAN [address] [place] [address] Surgeon Orthopedic Surgery 09/19/17 Matt Richardson DO [address] [place] [address] [address]RI[address] [place] [address] Consulting Physician Gastroenterology 12/10/19 Pema Gill MD [address] [place] [address] Fellow Pulmonary Disease 01/21/20 02/18/24 Jus Patel MD [address] [place] [address] Consulting Physician Urology 01/21/20 02/05/23 Haja Luciano MD [address] [place] [address] Consulting Physician Cardiovascular Disease 12/21/20 Yasmine Yanes MD [address] [place] [address] Consulting Physician Cardiology 07/23/21 Yasmine Yanes MD [address] [place] [address] Consulting Physician Cardiology 07/23/21 01/27/22 Samantha Mir, RN Registered Nurse Pulmonary Disease 01/10/22 02/18/24 Tabby Mcclendon MD [address] [place] [address] Video Poker Floorman Obstetrics and Gynecology 01/28/22 07/30/22 Haja Page MD PhD [address] [address] Consulting Physician Neurology 05/04/22 05/03/24 Pema Gill MD [address] [place] [address] Fellow Pulmonary Disease 06/21/22 07/30/22 Chandler Trejo MD [address] [place] [address] [facility] [address] [place] [address] Consulting Physician Gastroenterology 07/31/22 02/18/24 Johan Marti MD [address] [place] [address] [address] [place] [address] Referring Physician Neurosurgery 02/06/23 05/03/24 Ariadne Shook, ROSITA [address] [place] [address] Nurse Practitioner Neurology 07/22/23 05/03/24 Pema Gill MD [address] [place] [address] Fellow Pulmonary Disease 07/22/23 07/22/23 Hero Jackman MD [address] [facility] NEUROLOGY SLEEP [facility] [address] [place] [address] Consulting Physician Sleep Medicine 07/22/23 Ronal Jackson MD [address] [place] [address] Consulting Physician Pulmonary Disease 02/19/24 Kristen Perez MD [address] [place] [address] Anesthesiologist Pain Management 02/19/24 Ryan Sanders MD [address] [address] Consulting Physician Urology 05/04/22 Geovanna Alvarenga DPM [address] [place], [place] [address] Consulting Physician Foot and Ankle Surg 05/04/24 Ariadne Shook NP [address] [place] [address] Nurse Practitioner Neurology 06/01/24 Tabby Light, RN [address] [place] [address] [address] [place] [address] Advertising Account Representative 07/05/24 Junior Tobin MD [address] [address] Consulting Physician Urology 07/21/24 documented as of this encounter
--- OUTSIDE RECORDS SUMMARY | 2025-02-25 11:19 | XMS_ITS | Encounter Summary ---
Author Organization [facility] Address [address] 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
--- OUTSIDE RECORDS SUMMARY | 2025-02-25 11:19 | XMS_ITS | Clinical Summary ---
Author Organization [facility] Address [address] [place] [address] Care Team Providers Care Neonatal Intensive Care Nurse Name Role Phone Anila Patino MD Primary Care Provider [phone] Salomon Medrano MD Unavailable [phone] Rosalinda Looney MD Unavailable Lit Singer MD Unavailable Johan Marti MD Unavailable Tino Still MD Unavailable Matt Richardson DO Unavailable [phone] Yasmine Yanes MD Unavailable Hero Jackman MD Unavailable Ronal Jackson MD Unavailable Kristen Perez MD Unavailable Ryan Sanders MD Unavailable Geovanna Alvarenga DPM Unavailable Ariadne Shook NP Unavailable [phone] Tabby Light RN Unavailable Junior Tobin MD [...] morning, and 2 at night, with Tylenol 08/02/19 22 Active Humira,CF, Pen 40 mg/0.4 mL pen injector kitIndications:Rhe umatoid Arthritis Inject 0.4 mL (40 mg total) under the skin every 14 (fourteen) days 08/26/19 22 Active vilazodone (VIIBRYD) 10 mg tabletIndications: major depressive disorder Take 1 tablet (10 mg total) by mouth every morning Active clonazePAM (KlonoPIN) 0.5 mg tabletIndications: Anxiety Take 1 tablet (0.5 mg total) by mouth 2 (two) times a day Active traZODone (DESYREL) 150 mg tabletIndications: Mood disorder TAKE 2 TABLETS BY MOUTH AT BEDTIME DIRECTED NEEDED FOR SLEEP 12/05/19 23 Active pramipexole (MIRAPEX) 1.5 mg tablet TAKE 3 TABLETS BY MOUTH AT BEDTIME DIRECTED 04/11/20 Active mycophenolate mofetil (CELLCEPT) 500 mg tablet Take 1 - 2 tablets (500 mg - 1000 mg) by mouth twice daily. 03/09/20 Active amLODIPine (NORVASC) 5 mg tabletIndications: Benign hypertension Take 1 tablet (5 mg total) by mouth nightly 90 tablet 3 05/04/20 24 Active atorvastatin (LIPITOR) 20 mg tabletIndications: Multiple-type hyperlipidemia Take 1 tablet (20 mg total) by mouth daily 90 tablet 3 05/04/20 Active azelastine (ASTELIN) 137 mcg (0.1 %) nasal sprayIndications:C hronic rhinitis Administer 2 sprays into each nostril 2 (two) times a day before breakfast and dinner 90 mL 3 05/04/20 Active fluticasone propionate (FLONASE) 50 mcg/actuation nasal sprayIndications:C hronic rhinitis Administer 2 sprays into each nostril daily 120 mL 3 05/04/20 Active montelukast (SINGULAIR) 10 mg tabletIndications: Chronic rhinitis,Chronic hypoxemic respiratory failure (HCC),Mixed simple and mucopurulent chronic bronchitis (HCC) Take 1 tablet (10 mg total) by mouth nightly 90 tablet 3 05/04/20 24 Active omeprazole (PriLOSEC) 20 mg capsuleIndications :Chronic GERD Take 1 capsule (20 mg total) by mouth 2 (two) times a day before breakfast and dinner Take before food and eat within 30 minutes so that you activate the pill 180 capsule 3 05/04/20 24 Active tiZANidine (ZANAFLEX) 4 mg tabletIndications: Restless leg Take 1 tablet (4 mg total) by mouth nightly as needed for muscle spasms 90 tablet 3 05/04/20 Active potassium chloride ER 20 mEq CR tabletIndications: Hypokalemia TAKE 1 TABLET BY MOUTH DAILY 90 tablet 3 06/02/20 Active furosemide (LASIX) 40 mg tablet Take 1 tablet (40 mg total) by mouth 2 (two) times a day 180 tablet 3 06/03/20 24 Active miconazole nitrate 4 % (200 mg)- [...] MG) BY MOUTH DAILY 90 tablet 3 09/18/19 25 Active gentamicin (GARAMYCIN) 0.1 % ointment APPLY TO WOUND AND COVER WITH GAUZE. CHANGE ONCE DAILY 11/05/19 25 Active clopidogreL (PLAVIX) 75 mg tablet TAKE 1 TABLET(75 MG) BY MOUTH DAILY 90 tablet 3 12/02/19 25 Active calcium carbonate-vitamin D3 (Calcium 600 + D,3,) 1500 mg (600 mg elemental) -200 units per tablet Calcium + D3 600-200 MG-UNIT Oral Tablet QTY: 0 tablet Days: 0 Refills: 0 Written: 01/11/19 Patient Instructions: 1 tab daily otc 01/12/20 19 Active multivitamin tablet Daily Multivitamin Oral Capsule QTY: 0 capsule Days: 0 Refills: 0 Written: 07/30/19 Patient Instructions: 1 tab daily 07/30/19 20 Active albuterol 2.5 mg /3 mL (0.083 %) nebulizer solutionIndication s:Chronic obstructive pulmonary disease, unspecified COPD type (HCC) USE 1 VIAL VIA NEBULIZER FOUR TIMES DAILY NEEDED FOR WHEEZING OR SHORTNESS OF BREATH 150 mL 11 12/28/19 25 Active budesonide-glycopy r-formoterol (Breztri Aerosphere) 160-9-4.8 mcg/actuation inhalerIndications :Panlobular emphysema (HCC) Inhale 2 puffs 2 (two) times a day 10.7 g 3 01/12/20 25 Active albuterol HFA (PROVENTIL HFA,VENTOLIN HFA,PROAIR HFA) 90 mcg/actuation inhalerIndications :Supplemental oxygen dependent INHALE 2 PUFFS BY MOUTH EVERY 3-6 HOURS NEEDED FOR WHEEZING OR SHORTNESS OF BREATH 54 g 3 01/22/20 25 Active moxifloxacin (AVELOX) 400 mg tabletIndications: Panlobular emphysema (HCC) Take 1 tablet (400 mg total) by mouth daily for 10 days 10 tablet 02/25/20 25 025 Active predniSONE (DELTASONE) 10 mg tabletIndications: Panlobular emphysema (HCC) Take 3 tabs (30 mg) po every day for 3 days, then 2 tabs (20 mg) po every day for 3 days, then 1 tab (10 mg) po every day for 3 days 18 tablet 01/12/20 25 025 Discontin ued(Thera py completed ) Active Problems Patient Care Coordination No te Formatting of this note migh t be different from the original. Dr. Blanco Problem Noted Date Diagnosed Date Dysuria 02/24/2025 Hyperglycemia 02/24/2025 Hospital discharge follow-up 07/21/2024 Assessment & Plan (08/01/2024 12:47 PM REVENUE COLLECTOR): See hospital details above, testing and labs [...] health care for PT OT as scheduled. Steroid-induced osteoporosis 05/04/2024 Overview (05/04/2024): 5-10 mg [...] acute findings on exam today, continue same Kyphoscoliosis 07/22/2023 Requires continuous at home supplemental oxygen 07/22/2023 Diaphragm dysfunction 07/22/2023 Chronic GERD 03/20/2023 Overview (03/20/2023): Not responding to Prilosec 20 mg b.i.d.. Advise to see GI for EGD rule out Bailey's esophagus. She declined this referral. Multiple phone calls placed to HER to encouraged testing and finally declined the evaluation 03/20/2023 Senile osteoporosis 12/24/2021 Overview (03/02/2024): Received orders from Dr. Anneliese Patino's office to call and schedule patient for Zoledronic Acid, (Reclast) infusion. Her last Reclast infusion was 06/29/2020. Scheduled the appointment time with patient's . Appointment scheduled for 01/03/2022 at 11:00. No prior auth required per [facility] per ref# [id number]. Pt had Reclast 02/28/23 & 03/01/24 Assessment & Plan (02/29/2024 11:47 AM CDT): Due for Reclast infusion, we will order today Pacemaker 08/31/2020 Overview (12/21/2020): Dr. Luciano Placed pacemaker August 2020, 2 months prior to heart block findings on heart monitor she had admission stroke which led to a vascular dementia Iron deficiency anemia 06/16/2017 Overview (04/10/2021): Hemoglobin 10, iron and transferrin saturation low TIBC elevated. Started iron sucrose infusion and oral iron with her referral to GI for source of blood loss 04/09/2021. GI consultation options include Dr. Pappas, Dr. Dukes or her choice at [facility]. Her previous Dr. Varela is not available LLQ pain 05/28/2017 Assessment & Plan (12/29/2019 11:45 AM CDT): [...] results. Assessment & Plan (05/28/2017 4:34 PM REVENUE COLLECTOR): Started on Friday05/24/2017, patient had fever day [...] any organic cause. Plan for colonoscopy tomorrow. Chronic respiratory failure with hypoxia and hyp ercapnia 05/28/2017 Overview (06/16/2017): Requires nasal oxygen due to interstitial fibrosis from underlying rheumatoid arthritis. Assessment & Plan (08/11/2019 2:55 PM REVENUE COLLECTOR): Patient has chronic respiratory failure and is O2 dependent. She recently started on nebulizer treatment with improvement in symptoms. She is now also on steroids per rheumatology which have improved respiratory status. We will monitor. Assessment & Plan (05/28/2017 4:36 PM REVENUE COLLECTOR): Due to rheumatic lung disease. Patient uses 2L home oxygen Patient is on chronic prednisone therapy 5 mg a day was doubled to 10 mg daily as per her PCP on 05/24/2017 Patient is also on Etanercept weekly Patient follows with at [facility] for her rheumatoid arthritis Lumbar disc disorder [...] January 2020 when she met her new track grinder at [facility] Admitted 48 hours at [facility] for pulmonary workup for shortness of breath with these results Hospital Course: Under the care of ESTER Gifford at [facility] Pt was directly admitted for further workup [...] lower since yesterday. She reports that in caodaism yesterday it got down to 88% , [...] cough. For her ongoing hypoxia, would recommend CHIEF WRITER stress echo to evaluate for ischemia. We [...] SOB. Was previously seeing Dr. Yanez at [facility] but wanted to transition care to [facility]. Had 1st appt with Dr. Gill on [...] SOB. Was previously seeing Dr. Yanez at [facility] but wanted to transition care to [facility]. Had 1st appt with Dr. Gill on [...] tramadol Assessment & Plan (07/21/2019 12:37 PM REVENUE COLLECTOR): Possible rheumatoid nodule on her right forearm where the cellulitis was located. The cellulitis infection is resolved as erythema is gone, but the firm nodule remains there about 2 x 3 cm. We will get an ultrasound today but we may need to contact her chronic disease manager Dr. Medrano to see her for this. Assessment & Plan (05/28/2017 4:37 PM REVENUE COLLECTOR): Patient is on chronic prednisone therapy 5 mg a day was doubled to 10 mg daily as per her PCP on 05/24/2017 Patient is also on Etanercept weekly Patient follows with at [facility] for her rheumatoid arthritis Spinal stenosis of [...] Date Resolved Date Seborrheic keratoses 11/19/2024 025 Abdominal pain 06/30/2024 08/03/2024 Intractable nausea and vomiting 06/30/2024 08/03/2024 Chronic respiratory failure with hypoxia and hypercapnia 06/30/2024 08/03/2024 Colon cancer screening 02/29/202408/03 Chest wall deformity 07/22/2023 025 Acute bacterial rhinosinusitis 01/13/2023 08/03/2024 Assessment & [...] has follow-up with Dr. MARTIN on 02/06/23. Myopathy 07/17/2022 02/24/2025 Overview (07/17/2022): Added automatically from request for surgery [id number] Hypomagnesemia 05/31/2022 02/29/2024 Assessment & Plan (05/31/2022 1:28 PM REVENUE COLLECTOR): See assessment and plan for hypokalemia Pneumonia, community acquired 06/20/2021 08/03/2024 Hypokalemia 06/20/2021 08/03/2024 Non-healing open wound of toe 04/06/2021 07/23/2021 Malodorous urine 04/06/2021 07/23/2021 Fatigue 04/06/2021 07/23/2021 Hypokalemia 04/06/2021 08/03/2024 Assessment & Plan (05/31/2022 1:51 PM REVENUE COLLECTOR): Acute problem, seen in ER 1 week [...] - dx = hypokalemia, hypomagnesemia Please call rehabilitation inspector office and inform them that we are [...] received Follow up with Dr. Patino and rehabilitation inspector as scheduled or sooner if necessary Acute [...] (07/10/2020): 7 weeks ago s/p ORIF at [facility] presenting with new onset left hip pain and x-rays concerning for hardware fracture. July 10, 2020 Thrush 06/13/2020 02/29/2024 COVID-19 05/29/2020 08/03/2024 Assessment & Plan (05/21/2022 9:16 AM REVENUE COLLECTOR): Acute problem, present times a couple days [...] necessary Dyspnea on exertion 05/29/2020 02/29/20 24 longterm systemic steroid user 05/29/2020 02/24/2025 Overview (12/21/2020): Images from the original note were not included. Reclast infusion 06/29/2019 DEXA bone density (-) July 2017 Skin yeast infection 03/01/2020 021 Assessment & [...] 08/31/2019 Assessment & Plan (08/11/2019 2:54 PM REVENUE COLLECTOR): Patient presents with congestion, sinus pressure and [...] 08/31/2019 Assessment & Plan (07/12/2019 4:30 PM REVENUE COLLECTOR): Bilateral ankle swelling--pt states that she has been drinking a lot of water since being on the antibiotics. Lasix 20mg take 1 tab PO once daily for the next few days, #4/NR. If after the 3rd day the swelling is improved, no need to take the last one. She agrees to this. Cellulitis of right arm 07/09/201911/15 Assessment & Plan (07/12/2019 1:38 PM REVENUE COLLECTOR): The arm looks improved today but is still erythematous. Consulted with Dr. Mcclure--per his advice--finish clindamycin. Then start doxycycline 100mg BID x 5 days. Follow up with me next Friday if the redness and swelling is not completely resolved. Assessment & Plan (07/09/2019 9:27 AM REVENUE COLLECTOR): Erythema and warmth contained to an area of about 8cm x 9cm of R ventral forearm. We will treat with clindamycin 300mg QID x 7 days since she has an allergy to PCN/Keflex and Rocephin. I will see her back on Friday for a recheck of this area. Cough 06/16/2017 12/21/2020 Assessment & Plan (08/09/2020 2:57 PM REVENUE COLLECTOR): Phone visit today with patient and she [...] December. Assessment & Plan (08/04/2020 3:20 PM REVENUE COLLECTOR): Covid test= Negative Pt just had pneumonia [...] 08/03/2024 Assessment & Plan (05/31/2022 1:29 PM REVENUE COLLECTOR): Chronic problem, well controlled on current therapy [...] Enteritis 05/31/2017 06/16/2017 Chronic pain disorder 05/31/20172020 Transaminitis 05/28/2017 06/16/2017 Assessment & Plan (05/28/2017 4:39 PM REVENUE COLLECTOR): Seems chronic T.Bili normal ALP 144, AST [...] tests 09/28/2013 08/03/2024 Overview (08/03/2024): 09/28/2013 persistent intermediate card tender developed while on MTX Will discuss seeing a GI application packaging consultant Recently no sign of trend regarding [...] Encounters Date Type Department Care Team Description 02/25/2025 12:30 PM CDT Ancillary Procedure [place] Remote Sensing Engineer [address] [place] [id number] SSS (sick sinus syndrome) (HCC); Cardiac pacemaker in situ 02/25/2025 Results Follow-Up [facility] [address] [place] [address] Miriam Deleon NP Hemoglobin A1c, Thyroid Function Oto[place], Urinalysis reflex to microscopic and culture Urine, clean voided, Urinalysis, microscopic only 02/24/2025 11:00 AM CDT Lab [facility] [address] [place] [address] Rheumatoid arthritis involving multiple sites with positive rheumatoid factor (HCC); Benign hypertension; Medication monitoring encounter; Ischemic heart disease; Essential (primary) hypertension; Hyperglycemia; Dysuria 02/24/2025 10:00 AM CDT [facility] [address] [place] [address] Miriam Deleon NP Hospital discharge follow-up (Primary Dx); LLQ pain; Dysuria; Panlobular emphysema (HCC); Essential (primary) hypertension; Hyperglycemia 02/21/2025 10:36 AM CDT - 02/21/2025 11:59 PM CDT Hospital Encounter [facility] [address], [address] [place] [address] Kristen Perez MD Kyphoscoliosis (Primary Dx); Lumbar disc disorder with myelopathy; Spondylosis without myelopathy or radiculopathy, lumbar region; Lumbar post-laminectomy syndrome Discharge Disposition: Discharge to home or self care 02/14/2025 [facility] [place] [facility] [address] [place] [phone] Scanning, Provider 02/09/2025 11:00 AM CDT Office Visit [facility] [address] [facility] [address] [place] [address] Ronal Jackson MD Chronic respiratory failure with hypoxia and hypercapnia (HCC) (Primary Dx); Tracheobronchomalacia ; Restrictive lung disease; Kyphoscoliosis; Current chronic use of systemic steroids 02/09/2025 9:31 AM CDT - 02/09/2025 11:59 PM CDT Hospital Encounter [facility] PFT [facility] [address] [facility] [address] [place] [address] Chronic obstructive pulmonary disease, unspecified COPD type (HCC) Discharge Disposition: Discharge to home or self care 02/01/2025 Telephone [facility] [address], [address] [place] [address] Kristen Perez MD TWO WEEK POST CALL 01/31/2025 Orders Only [facility] [place] [facility] Management [address] [place] [address] Scanning, Provider 01/18/2025 9:18 AM CDT - 01/18/2025 11:59 PM CDT Hospital Encounter [facility] [address], [address] [place] [phone] Kristen Perez MD Spondylosis of lumbar region without myelopathy or radiculopathy Discharge Disposition: Discharge to home or self care 01/17/2025 Telephone [facility] [address] [facility] [address], [address] [place] [address] Kristen Perez MD Sedation precall for 01/18/25 01/11/2025 10:00 AM CDT Office Visit [facility] [address] [place] [phone] Miriam Deleon NP Panlobular emphysema (HCC) (Primary Dx); Chronic respiratory failure with hypoxia and hypercapnia (HCC); Restrictive lung disease; Essential (primary) hypertension 01/11/2025 Orders Only [facility] [address] [facility] 8th [place] [address] [place] [address] Roselyn Lewis, adoption counselor obstructive pulmonary disease, unspecified COPD type (HCC) (Primary Dx) 01/07/2025 Telephone [facility] [address] [facility] 8th [place] [address] [place] [address] Roselyn Lewis, RN 01/06/2025 Telephone [facility] [address] [place] [phone] Anila Patino MD Breathing Problem 01/05/2025 Telephone [facility] [address] [facility] [address], [address] [place] [address] Kristen Perez MD Comfirming RFA date and time 12/28/2024 Telephone [facility] [address] [facility] 8th [place] [address] [place] [address] Roselyn Lewis, RN 12/27/2024 Telephone [facility] [address] [facility] 8th [place] [address] [place] [address] Roselyn Lewis, RN 12/13/2024 Orders Only [facility] [place] [facility] [address] [place] [address] Scanning, Provider 12/06/2024 10:55 AM CDT - 12/06/2024 11:59 PM CDT Hospital Encounter [address] [address] Acute cough Discharge Disposition: Discharge to home or self care 12/06/2024 9:30 AM CDT Office Visit [facility] [address] [place] [address] [place] [address] Isha Harman NP Acute cough (Primary Dx); Class 2 obesity with alveolar hypoventilation, serious comorbidity, and body mass index (BMI) of 35.0 to 35.9 in adult (HCC); Respiratory infection; Tracheobronchomalacia ; Supplemental oxygen dependent; Immunization counseling 12/06/2024 8:08 AM CDT - 12/06/2024 11:59 PM CDT Hospital Encounter [facility] [address] [facility] [address] [place] [address] Restrictive lung disease Discharge Disposition: Discharge to home or self care 12/03/2024 Orders Only [facility] [address] [place] [address] [place] [address] Roselyn Lewis, RN Restrictive lung disease (Primary Dx) 12/03/2024 [facility] [address] [place] [address] [place] [address] Roselyn Lewis, RN Restrictive lung disease (Primary Dx) 12/02/2024 [facility]phone [facility] [address] [place] [address] [place] [address] Roselyn Lewis, RN 11/29/2024 12:56 PM CDT - 11/29/2024 11:59 PM CDT Hospital Encounter [facility] [address] [facility] [address], [address] [place] [address] Kristen Perez MD Spondylosis of lumbar region without myelopathy or radiculopathy (Primary Dx); Lumbar post-laminectomy syndrome; Chronic bilateral low back pain without sciatica Discharge Disposition: Discharge to home or self care 11/26/2024 12:30 PM CDT Ancillary Procedure [place] Remote Sensing Engineer [address] [facility] [address] [place] [address] SSS (sick sinus syndrome) (HCC); Cardiac pacemaker in situ 11/25/2024 Telephone [facility] [address] [facility] 8th [place] [address] [place] [address] Roselyn Lewis RN from Last 3 Months Immunizations Immunization Administration [...] of knee Closed fracture of left hip ([facility]) 06/13/2020 7 weeks ago s/p ORIF at [facility] presenting with new onset left hip pain and x-rays concerning for hardware fracture. July 10, 2020 Senile osteoporosis 12/24/2021 Senile osteoporosis 12/24/2021 History of being hospitalized 03/2022 Sh ortness of breath/ Muscles in diaphram doesn't work very well CVA (cerebral vascular accid ent) ([facility]) 06/2021 Last stroke about a [...] 06/20/2021 Abnormal liver function tests 09/28/2013 persistent assisted developed while on MTX Will discuss seeing a GI application packaging consultant Recently no sign of trend regarding introduction of Azathioprine or upward titration of dosage. Rheumatoid arthritis, unspecified 07/09/2012 Essential (primary) hypertension 07/28/2012 Intractable nausea and vomiting 06/30/2024 Abdominal pain 06/30/2024 Chronic respiratory failure with hypoxia and hypercapnia ([facility]) 06/30/2024 Moderate episode of recurren t major depressive disorder ([facility]) 07/28/2012 Rheumatoid arthritis, unspecified 07/09/2012 Family History Medical History Relation Name Comments Coronary artery disease Father Heart attack Father Hyperlipidemia Mother Other Other Anesthesia problems Neg Hx Relation Name Status Comments Father (Age 35) of [place] age 30s (electrician rectifier maintenance) Mother Other Social History Tobacco Use Types Packs/Day Years Used Date Smoking Tobacco: Never Passive Smoke Exposure: Past Smokeless Tobacco: Never Tobacco Cessation:Counseling Given: Not Answered Alcohol Use Standard Drinks/Week Comments Never 0 [...] often do you attend chur ch or judaism services? More than 4 times per year 07/05/2024 Do you belong to any clubs o r organizations such as caodaism groups, unions, fraternal or athletic groups, or [...] any time in the past 12 m [facility], were you homeless or living in a group home (including now)? No 07/05/2024 Social Connection and Isolation Panel Answer Date Recorded Frequency of Communication with Friends and Fami ly Not on file 02/21/2025 Frequency of Social Gatherings with Friends and Family Not on file 02/21/2025 Attends Jew Services Not on file 02/21 Active Member [...] any time in the past 12 m [facility], were you homeless or living in a group home (including now)? No 02/21/2025 [facility] Utilities Answer Date Recorded In the past 12 months has th e electric, gas, oil, or water company threatened to shut off services in your home? No 02/21/2025 Personal Safety Answer Date Recorded Getting School Help Needed Denies 05/26 Comments No Sex and Gender Information Value Date Recorded Sex Assigned at Not on file Legal Sex Female 4:42 AM REVENUE COLLECTOR Gender Identity Female 03/06/2022 7:30 PM CDT [...] Mass Index 32.61 02/24/2025 9:58 AM CDT Plan of Treatment Upcoming Encounters Date Type Department Care Team (Latest Contact Info) Description 02/25/2025 12:30 PM CDT Ancillary Procedure [place] Remote Sensing Engineer [address] [place] [phone] SSS (sick sinus syndrome) (HCC); Cardiac pacemaker in situ 09/07/2025 Orders Only [facility] [address] [place] [address] Scanning, Provider Health Maintenance Due Date Last Done Comments Covid-19 Vaccine (7 - Mixed Product risk season) 2025 03/15/2024, 03/14/2023, 03/14/2023, Additional history exists Influenza Vaccine (#1) 2025 , 03/14/2023, 03/16/2022, Additional history exists Well Visit 65+ 05/04/2025 05/04/2024, 07/17, 08/30/2021, Additional history exists Breast Cancer Screening-Mammogram 11/16/2025 11/16/2024, 10/24/2023, 09/09/2022, Additional history exists Fall Risk Assessment 02/21/2026 02/21/2025, 01/18/2025, 11/29/2024, Additional history exists Depression Screening 02/24/2026 02/24/2025, 05/04/2024, 02/19/2024, Additional history exists Osteoporosis Screening-Bone Density Scan [...] Care Management On track(2024 3:50 PM CDT) No Tabby Light RN Note: [...] take, when to call CM or provider. [facility] Chronic Pain Care Plan Chronic Care Management No Alanna Fletcher RN Note: Problem: Chronic Pain Goals: 1. [...] home safety. Medical Devices Implanted Type Area Price Checker Device Identifier Shelf Expiration Date Model / Serial / Lot Spr Therapeutics System Sprint Percutaneous Electrical Nerve Stimulation [id number] - [id number] Implanted:Qty: 1 on 05/15/2023 by Kristen Perez MD at [facility] 4 Lead [employer] 09/29/2023 [id number] / / [employer] [id number] Rl Gamma 3.2mm 450mm Wire Fixation Sterile - [id number] - [id number] Implanted:Qty: 1 on 07/06/2020 by Natalee De La Rosa MD at [facility] Left: Femur [place] [employer] 03/15/2025 [id number] / [id number] / [id number] Loja [employer] Nephew/Richco/Orth o [id number] Intertan 36cm 11.5mm Left Intertrochanter 130d 1.5mm Nail - [id number] - [id number] Implanted:Qty: 1 on 07/06/2020 by Natalee De La Rosa MD at [facility] Left: Femur [employer]/O rtho [id number] 08/23/2029 [id number] / [id number] / [id number] [employer]Rich[employer]/Orth o [id number] Intertan 4.5mm 95mm 90mm Lag Compression Integrated Interlocking - [id number] - [id number] Implanted:Qty: 1 on 07/06/2020 by Natalee De La Rosa MD at [facility] Left: Femur [employer]Rich[employer]/O rtho [id number] 12/21/2029 [id number] / [id number] / [id number] [employer]Rich[employer]/Orth o [id number] 5mm 40mm Low Profile Internal Hex Femur Screw Bone Trigen - [id number] Implanted:Qty: 1 on 07/06/2020 by Natalee De La Rosa MD at [facility] Left: Femur [employer]Rich[employer]/O rtho [id number] / / [employer]Richco/Orth o [id number] 5mm 42.5mm Low Profile Internal Hex Femur Screw Bone Trigen - [id number] Implanted:Qty: 1 on 07/06/2020 by Natalee De La Rosa MD at [facility] Left: Femur [employer]Rich[employer]/O rtho [id number] / / Pacemaker- Implanted:09/01/19 by Haja Luciano MD (Quantity not on file) Chest Explanted Type Area Price Checker Device Identifier Shelf Expiration Date Model / Serial / Lot Medtronic Inc Vectris 5mm 60cm 1x8 Electrode Trial Lead Neurostimulator [id number] - [id number] Explanted:Qty: 1 on 03/20/2023 by Kristen Perez MD at [facility] 4 Spinal Cord Stimulator Medtronic Inc [id number] / / Procedures Procedure Name Priority Date/Time Associated Diagnosis Comments EGFR Routine 02/24/2025 10:54 AM CDT Rheumatoid arthritis involving multiple sites with positive rheumatoid factor (HCC) Benign hypertension Medication monitoring encounter Ischemic heart disease URINALYSIS, MICROSCOPIC ONLY Routine 02/24/2025 10:54 AM CDT Dysuria DIFFERENTIAL AUTO Routine 02/24/2025 10:54 AM CDT Rheumatoid arthritis involving multiple sites with positive rheumatoid factor (HCC) Benign hypertension Medication monitoring encounter Ischemic heart disease THYROID FUNCTION CASCADE Routine 02/24/2025 10:54 AM CDT Essential (primary) hypertension HEMOGLOBIN A1C Routine 02/24/2025 10:54 AM CDT Essential (primary) hypertension Hyperglycemia CRP (ACUTE PHASE) Routine 02/24/2025 10:54 AM CDT Rheumatoid arthritis involving multiple sites with positive rheumatoid factor (HCC) Benign hypertension Medication monitoring encounter Ischemic heart disease ERYTHROCYTE SEDIMENTATION RATE Routine 02/24/2025 10:54 AM [...] hypertension Medication monitoring encounter Ischemic heart disease CBC WITH AUTO DIFFERENTIAL Routine 02/24/2025 10:54 AM CDT Rheumatoid arthritis involving multiple sites with positive rheumatoid factor (HCC) Benign hypertension Medication monitoring encounter Ischemic heart disease COMPREHENSIVE METABOLIC PANEL Routine 02/24/2025 10:54 AM CDT Rheumatoid arthritis involving multiple sites with positive rheumatoid factor (HCC) Benign hypertension Medication monitoring encounter Ischemic heart disease LIPID PANEL Routine 02/24/2025 10:54 AM CDT Rheumatoid arthritis involving multiple sites with positive rheumatoid factor (HCC) Benign hypertension Medication monitoring encounter Ischemic heart disease URINALYSIS AND REFLEX TO MICROSCOPIC AND CULTURE Routine 02/24/2025 10:54 AM CDT Dysuria SCAN - RADIOLOGY/IMAGING 02/14/2025 PULMONARY FUNCTION TEST (PFT) Routine 02/09/2025 10:30 [...] sinus syndrome) (HCC) Cardiac pacemaker in situ SCREENING MAMMOGRAM BILATERAL W DERREK Schedule Routine, Read Routine (OP Routine) 11/16/2024 10:30 AM CDT Breast cancer screening by mammogram DEXA AXIAL SKELETON BONE DENSITY 1 OR MORE SITES Schedule Routine, Read Routine (OP Routine) 11/16/2024 10:08 AM CDT Menopause STOOL DNA COLOGUARD Routine 02/27/2024 3:30 PM CDT Colon cancer screening COLONOSCOPY 05/29/2017 12:18 PM REVENUE COLLECTOR HEPATITIS PANEL, ACUTE Routine 05/29/2017 4:23 AM REVENUE COLLECTOR from Last 3 Months or Most Recently Relevant to Health Maintenance Results * eGFR (02/24/2025 10:54 AM CDT) [...] was last reviewed 2021. Testing performed by: [facility], [id number] [place] [address], [place]., [address] Blood 02/24/2025 10:5 4 AM CDT 02/24/2025 5:52 PM CDT Anila Patino MD LAB BLOOD ORDERABLES Final Result [facility] [address] [facility] Department [place] [address] * (ABNORMAL) Differential, auto (02/24/2025 10:54 AM CDT) Neutrophil abs 11.58(H) 1.50 - 6.50 K/cumm Comment:Testing performed by : [facility], [address] [place] [address]., [address] Imm gran abs 0.10 0.00 - 0.10 K/cumm [facility] Comment:Testing performed by : [facility], [address] [place] [address]., [address] Lymphocyte abs 2.72 0.80 - 3.30 K/cumm CERNER Comment:Testing performed by : [facility], [address] [place] [address]., [address] Monocyte abs 1.73(H) 0.20 - 0.80 K/cumm [facility] Comment:Testing performed by : [address] [address] Eosinophil abs 0.12 0.00 - 0.50 K/cumm [facility] Comment:Testing performed by : [address] [address] Basophil abs 0.08 0.00 - 0.10 K/cumm [facility] Comment:Testing performed by : [address] [address] Neutrophil pct 70.9 % [facility] Comment: Interpretive Data Percent cell count reference ranges are not reported, since discordance with absolute values may lead to misinterpretation of CBC data. Current Interpretive Data was last revised on 2017. Testing performed by: [address] [address] Imm gran pct 0.6 % CERNER Comment: Interpretive Data Percent cell count reference ranges are not reported, since discordance with absolute values may lead to misinterpretation of CBC data. Current Interpretive Data was last revised on 2017. Testing performed by: [address] [address] Lymphocyte pct 16.7 % CERNER Comment: Interpretive Data Percent cell count reference ranges are not reported, since discordance with absolute values may lead to misinterpretation of CBC data. Current Interpretive Data was last revised on 2017. Testing performed by: [facility], [address] [place] [address]., [address] Monocyte pct 10.6 % [facility] Comment: Interpretive Data Percent cell count reference ranges are not reported, since discordance with absolute values may lead to misinterpretation of CBC data. Current Interpretive Data was last revised on 2017. Testing performed by: [address] [address] Eosinophil pct 0.7 % [facility] Comment: Interpretive Data Percent cell count reference ranges are not reported, since discordance with absolute values may lead to misinterpretation of CBC data. Current Interpretive Data was last revised on 2017. Testing performed by: [address] [address] Basophil pct 0.5 % [facility] Comment: Interpretive Data Percent cell count reference ranges are not reported, since discordance with absolute values may lead to misinterpretation of CBC data. Current Interpretive Data was last revised on 2017. Testing performed by: [address] [address] Blood 02/24/2025 10:5 4 AM CDT 02/24/2025 5:41 PM CDT us Anila Patino MD LAB BLOOD ORDERABLES Final Result [address] Department [place] [address] * Thyroid Function [place] (02/24/2025 10:54 AM CDT) TSH 2.12 0.30 - 4.20 mcIUnit/mL Comment:Testing performed by : [address] [address] Blood 02/24/2025 10:5 4 AM CDT 02/24/2025 5:41 PM CDT [employer] LAB BLOOD ORDERABLES Final Resul t [facility] [address] [place] [address] * (ABNORMAL) Urinalysis reflex to microscopic and culture Urine, clean voided (02/24/2025 10:54 AM CDT) Color, ur Yellow Yellow Comment:Testing performed by : [address] [address] Clarity, ur Clear Clear [facility] Comment:Testing performed by : [address] [address] Specific gravity, ur 1.030 1.003 - 1.030 CERNER Comment:Testing performed by : [address] [address] pH, urine 6.0 [facility] Comment: Interpretive Data U rine pH is affected by diet, medications, systemic acid-base disturbances, and renal tubular function. pH may affect urinary stone formation. For example, urine pH below 6.0 may help reduce the tendency for calcium phosphate stones and pH greater than 6.0 may reduce the tendency for uric acid stone formation. Source: [facility] Current Interpretive Data was last revised on 2017 Testing performed by: [address] [address] Protein, ur ql 1+(A) Negative [facility] Comment:Testing performed by : [address] [address] Glucose, ur ql Negative Negative C[facility] Comment:Testing performed by : [address] [address] Ketones, ur Negative Negative [facility] CH Comment:Testing performed by : [address] [address] Bilirubin, ur Negative Negative [facility] CH Comment:Testing performed by : [address] [address] Blood, ur Negative Negative [facility] CH Comment:Testing performed by : [address] [address] Urobilinogen, ur <2.0 <2.0 mg/dL C[facility]ER Comment:Testing performed by : [address] [address] Nitrite, ur Negative Negative [facility] Comment:Testing performed by : [address], [address] Leukocyte esterase, ur Negative Negative [facility] Comment:Testing performed by : [address], [address] UA reflex comment Reflex to microscopic UA will be performed. [facility] Comment:Testing performed by : [address], [address] Urine, clean voided 02/24/2025 10:54 AM CDT 02/24/2025 5:41 PM CDT Miriam Deleon NP LAB MICROBIOLOGY - GENERAL ORDER AZIZA Final Result [facility] [address] Department [place] [address] * (ABNORMAL) CBC with auto differential (02/24/2025 10:54 AM CDT) WBC 16.33(H) 3.80 - 9.90 K/cumm Comment:Testing performed by : [address], [address] Hgb 12.8 11.9 - 15.5 g/dL [facility] Comment:Testing performed by : [address], [address] Hct 40.1 35.6 - 45.5 % [facility] Comment:Testing performed by : [address], [address] Plt 318 150 - 400 K/cumm [facility] Comment:Testing performed by : [address], [address] MPV 10.0 9.1 - 12.3 fL [facility] Comment:Testing performed by : [address], [address] RBC 4.21 3.90 - 5.20 M/cumm [facility] Comment:Testing performed by : [address], [address] MCV 95.2 81.3 - 96.4 fL [facility] Comment:Testing performed by : [facility], [address] [place] [address], [address] MCH 30.4 27.1 - 33.3 pg [facility] Comment:Testing performed by : [address], [address] MCHC 31.9(L) 32.3 - 35.7 g/dL [facility] Comment:Testing performed by : [facility], [address] [place] [address], [address] RDW CV 13.8 11.1 - 14.9 % [facility] Comment:Testing performed by : [facility], [address] [place] [address], [address] RDW SD 48.0 35.7 - 48.1 fL [facility] Comment:Testing performed by : [facility], [address] [place] [address], [address] NRBC abs 0.00 0.00 - 0.01 K/cumm [facility] Comment:Testing performed by : [address], [address] Blood 02/24/2025 10:5 4 AM CDT 02/24/2025 5:41 PM CDT Anila Patino MD LAB BLOOD ORDERABLES Final Result Performing Organization Address City/State/[facility] Co de Phone Number [address] Department [place] [address] * (ABNORMAL) Urinalysis, microscopic only (02/24/2025 10:54 AM CDT) WBC, ur 0-5 0 - 5 /HPF Comment:Testing performed by : [address] [address] RBC, ur 3-5(A) 0 - 2 /HPF [facility] Comment:Testing performed by : [address], [address] Epithelial cells, squamous, ur 1-5 0 - 5 /HPF [facility] Comment:Testing performed by : [address], [address] Mucous, ur Present(A) [facility] [place] Comment:Testing performed by : [facility], [address] [place] [address]., [address] Hyaline casts, ur 1-5 0 - 10 /LPF [facility] Comment:Testing performed by : [facility], [address] [place] [address]., [address] Culture Reflex Comment Reflex conditions for urine culture (WBC >10) not met. [facility] Comment:Testing performed by : [facility], [address] [place] [address]., [address] Urine, clean voided 02/24/2025 10:54 AM CDT 02/24/2025 5:41 PM CDT us Miriam Deleon NP LAB URINE ORDERABLES Final Resul t Performing Organization Address City/[facility]/ZIP Co de Phone Number [facility] [address] [facility] Department [place] [address] * Erythrocyte sedimentation rate (02/24/2025 10:54 AM CDT) Erythrocyte sedimentation rate 15 1 - 30 mm/hr Comment:Testing performed by : [facility], [address] [place] [address], [address] Blood 02/24/2025 10:5 4 AM CDT 02/24/2025 5:41 PM CDT us Anila Patino MD LAB BLOOD ORDERABLES Final Result [facility] [address] [facility] [place] [address] * CRP (acute phase) (02/24/2025 10:54 AM CDT) CRP 3.7 <=10.0 mg/L Comment:Testing performed by : [facility], [address] [place] [address]., [address] Blood 02/24/2025 10:5 4 AM CDT 02/24/2025 5:41 PM CDT us Anila Patino MD LAB BLOOD ORDERABLES Final Result Performing Organization Address [facility] Co de Phone Number [facility] [address] [facility] [place] [address] * TSH (02/24/2025 10:54 AM CDT) Thyroid Stimulating Hormone 2.12 0.30 - 4.20 mcIUnit/mL Comment:Testing performed by : [address], [address] Blood 02/24/2025 10:5 4 AM CDT 02/24/2025 5:41 PM CDT us Anila Patino MD LAB BLOOD ORDERABLES Final Result Performing Organization Address [facility] Co de Phone Number [facility] [place] [address] * T4, free (02/24/2025 10:54 AM CDT) Pathologist [facility] Free T4 1.13 0.90 - 1.70 ng/dL Comment:Testing performed by : [address], [address] Blood 02/24/2025 10:5 4 AM CDT 02/24/2025 5:41 PM CDT us Anila Patino MD LAB BLOOD ORDERABLES Final Result Performing Organization Address [facility] Co de Phone Number [facility] [address] [facility] [place] [address] * (ABNORMAL) Hemoglobin A1c (02/24/2025 10:54 AM CDT) Pathologist [facility] Hgb A1C 7.1(H) 4.0 - 5.6 % Comment:Testing performed by : [address] [address] Estimated Average Glucose 157 mg/dL [facility] Comment: The ADA recommends reporting an estimated Average Glucose (eAG) with all Hemoglobin A1c results using the equation derived from a study of 507 normal and diabetic adults. Minority populations were underrepresented and children were not included. (Diabetes Care 31:3702-4304, 2008). The eAG is not equivalent to a fasting glucose. Testing performed by: [facility], [address] [place] [address]., [address] Blood 02/24/2025 10:5 4 AM CDT 02/24/2025 5:41 PM CDT Miriam Deleon NP LAB BLOOD ORDERABLES Final Resul t [facility] [address] Department [place] [address] * (ABNORMAL) Lipid panel (02/24/2025 10:54 AM [...] last revised on 2018. Testing performed by: [facility], [address] [place] [address]., [address] Triglycerides 264(H) <=149 mg/dL [facility] [place] Comment: Interpretive Data Ages < or = [...] last revised on 2018. Testing performed by: [facility], [address] [place] [address]., [address] HDL 38(L) >=40 mg/dL [facility] Comment: Interpretive Data Ages < or = [...] last revised on 2018. Testing performed by: [facility], [address] [place] [address]., [address] LDL, calculated 54 <=129 mg/dL [facility] Comment: Interpretive Data Ages < or = 19 years Acceptable: <110 mg/dL Borderline high: 110-129 mg/dL High: >or= 130 mg/dL Ages > or = 20 years Optimal: <100 mg/dL Near optimal: 100-129 mg/dL Borderline high: 130-159 mg/dL High: >160 mg/dL Calculated using the Lane LDL-C estimating equation. This equation was implemented on 2024. Prior to this date LDL-C was estimated using the Friedewald equation. Literature References: 1. Expert Panel on Integrated Guidelines for Cardiovascular Health and Risk Reduction in Children and Adolescents. Pediatrics 2011;128:S213 2. NCEP Expert Panel. Circulation 2004;110:[address] Alas al. [place] Cardiol. 2019October 14;5(5):540-548. doi: 10.1001/jamacardio.2020.0013 Current Interpretive Data was last revised on 2024. Testing performed by: [address] [address] Non-HDL Cholesterol 96 mg/dL [facility] Comment: Interpretive Data Ages < or = [...] last revised on 2018. Testing performed by: [address] [address] Chol/HDL ratio 4 [facility] Comment:Testing performed by : [address] [address] Blood 02/24/2025 10:5 4 AM CDT 02/24/2025 5:41 PM CDT Anila Patino MD LAB BLOOD ORDERABLES Final Result [address] Department [place] [address] * Comprehensive metabolic panel (02/24/2025 10:54 AM CDT) Sodium 138 135 - 145 mmol/L Comment:Testing performed by : [address] [address] Potassium, pl 3.7 3.3 - 4.9 mmol/L [facility] CH Comment:Testing performed by : [address] [address] Chloride 98 97 - 110 mmol/L [facility] CH Comment:Testing performed by : [address] [address] CO2 28 22 - 32 mmol/L [facility] CH Comment:Testing performed by : [address] [address] Anion gap 12 2 - 15 mmol/L [facility] CH Comment:Testing performed by : [address] [address] BUN 14 6 - 25 mg/dL [facility] CH Comment:Testing performed by : [address] [address] Creatinine 0.64 0.60 - 1.10 mg/dL [facility] CH Comment:Testing performed by : [address] [address] Glucose 127 70 - 199 mg/dL [facility] CH Comment: Interpretive Data Fasting glucose >/= 126 [...] classification and Diagnosis of Diabetes Diabetes Care 202; 46: S19-S40. Current interpretive data was last revised 2022. Testing performed by: [address] [address] Calcium 9.6 8.5 - 10.3 mg/dL [facility] CH Comment:Testing performed by : [address], [address] Bilirubin, total 0.3 0.1 - 1.2 mg/dL [facility] Comment:Testing performed by : [address] [address] Protein, pl 6.7 6.5 - 8.5 g/dL [facility] CH Comment:Testing performed by : [address] [address] Albumin 3.9 3.5 - 5.0 g/dL [facility] CH Comment:Testing performed by : [address] [address] Alk phos 71 40 - 130 Units/L [facility] CH Comment:Testing performed by : [address], [address] ALT 37 7 - 45 Units/L [facility] CH Comment:Testing performed by : [address], [address] AST 39 10 - 45 Units/L [facility] Comment:Testing performed by : [address] [address] Blood 02/24/2025 10:5 4 AM CDT 02/24/2025 5:41 PM CDT Anila Patino MD LAB BLOOD ORDERABLES Final Result [facility] [address] [facility] Department [place] [address] * SCAN - RADIOLOGY/IMAGING (02/14/2025) Anatomical Region Laterality Modality Other us Provider Scanning Final Result * Pulmonary Function Test - (02/09/2025 10:30 AM CDT) FVC PRE 0.69 L [facility] FVC %PRE PRED 30 % [facility] FEV1 PRE 0.55 L [facility] FEV1 %PRE PRED 30 % [facility] FEV1/FVC PRE 80.8 % [facility] Anatomical Region Laterality Modality PFT 02/09/2025 9:40 AM CDT Narrative 02/10/2025 7:16 PM CDT Table formatting from the original result was not included. [facility] Division of Pulmonary & Critical Care Medicine [address] [place] [address]; [place] [address]; [place] [address]; [phone] Pulmonary Function Laboratory Pulmonary Stress Test Simple/Oxygen [...] sec 2 93 110 9 Recovery: 1 2/4 98 89 5 149/89 0.58 32% 3 4 98 80 5 *Amrik rate of perceived exertion (1-10 dyspnea scale) Chaitanya, CHEST 2003; 123:1408 Walk Test Summary: Six Minute Walk Distance: 450 ft Six-minute Walk Work [distance (m) x body wt (kg)]: 56157 kg.m (normal >60,000kg.m) Oxygen required to maintain [...] with the written final report. PFT performed at:->[facility] Adult PFT Lab- [facility] Procedure:->Oxygen Assessment Titration Procedure:->Spirometry Pulmonary Function [...] and %HbO2 is age dependent. However, the [facility] Pulmonary Function Laboratory defines hypoxemia as a PaO2 <56 mm Hg or a %HbO2 <89%. Starting on June of 2024 the [facility] Pulmonary Function Laboratory utilizes race neutral GLI Global normative equations. Ronal Jackson MD PFT ORDERABLES F inal Result * SCAN - LABS (01/31/2025) us Provider Scanning Final Result * Imaging Lumbar/Sacral Medial Branch RFA Bilateral ([id number]) (01/18/2025 10:33 AM CDT) Narrative RAD_PACS_[facility] - 01/18/2025 10:49 AM CDT The images from this study are not interpreted by Radiology. Please refer to the physician's procedure / OR operative note. Kristen Perez MD IMG PAIN MGMT PROCEDURES F inal Result RAD_PACS_[facility] * SCAN - LABS (12/13/2024) Provider Scanning Final Result * Respiratory pathogen panel Nasopharyngeal (12/06/2024 11:13 AM CDT) Pathologist [facility] Influenza A RNA Not Detected Not Detected Influenza B RNA Not Detected Not Detected [facility] RSV RNA Not Detected Not Detected [facility] COVID-19 RNA Not Detected Not Detected [facility] Coronavirus 229E RNA Not Detected Not Detected [facility] Coronavirus HKU1 RNA Not Detected Not Detected [facility] Coronavirus NL63 RNA Not Detected Not Detected [facility] Coronavirus OC43 RNA Not Detected Not Detected [facility] Adenovirus DNA Not Detected Not Detected [facility] Metapneumovirus RNA Not Detected Not Detected [facility] Rhinovirus/Enterov irus RNA Not Detected Not Detected [facility] Parainfluenza 1 RNA Not Detected Not Detected [facility] Parainfluenza 2 RNA Not Detected Not Detected [facility] Parainfluenza 3 RNA Not Detected Not Detected [facility] Parainfluenza 4 RNA Not Detected Not Detected [facility] B. pertussis DNA Not Detected Not Detected [facility] B. parapertussis DNA Not Detected Not Detected [facility] C. pneumoniae DNA Not Detected Not Detected [facility] M. pneumoniae DNA Not Detected Not Detected [facility] Nasopharyngeal 12/06/2024 11 :13 AM CDT 12/06/2024 11:54 AM CDT Narrative [facility] - 12/06/2024 12:56 PM CDT Is the Patient experiencing symptoms consistent with COVID?->Unknown Surveillance testing for transplant patient?->No Interpretive Data The VissArray Respiratory Panel (RP2.1) assay is a multiplexed [...] assay has FDA clearance for testing of COMPANY MINER BLASTING swabs. The performance of additional specimen types has been assessed by the performing laboratory. The performance characteristics of this assay have been determined by [facility] Molecular Infectious Disease Laboratory. Current interpretive data was last revised on 22. Isha Harman [employer] LAB MICROBIOLOGY - GENERA L ORDERABLES Final Result [facility] One [facility] [place] [address] * Pulmonary Function Test - (12/06/2024 9:05 AM CDT) FVC PRE 0.91 L [facility] FVC %PRE PRED 40 % [facility] FEV1 PRE 0.79 L [facility] FEV1 %PRE PRED 44 % [facility] FEV1/FVC PRE 86.7 % [facility] Anatomical Region Laterality Modality PFT 12/06/2024 8:36 AM CDT Narrative 12/06/2024 11:29 AM CDT Table formatting from the original result was not included. [facility] Division of Pulmonary & Critical Care Medicine [address] [place] [address]; [address]; [place] [address]; [phone] Pulmonary Function Laboratory Pulmonary Stress Test Simple/Oxygen [...] with the written final report. PFT performed at:->[facility] Adult PFT Lab- CAM-8D Procedure:->Oxygen Assessment Titration [...] and %HbO2 is age dependent. However, the [facility] Pulmonary Function Laboratory defines hypoxemia as a PaO2 <56 mm Hg or a %HbO2 <89%. Starting on June of 2024 the [facility] Pulmonary Function Laboratory utilizes race neutral GLI Global normative equations. Ronal Jackson MD PFT ORDERABLES F inal Result * DEVICE CHECK - REMOTE (11/25/2024 3:50 PM CDT) Anatomical Region Laterality Modality Other Narrative 11/30/2024 10:05 AM CDT Images from the original result were not included. 11/26/2024 [employer] quarterly remote device check NOTE The following shows snippets from the complete quarterly report. 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 Reviewed By Bernarda Chilel OPERATIONS TEAM LEADER at 3:28 PM Review and Recommendations below (please forward an in-basket message to your MA if check requires attention) Yasmine Yanes MD CV CARDIAC SERVICES PROCED URES Final Result * Screening Mammogram Bilateral W [...] calcification, or architectural distortion in either breast. Anila Patino MD IMG MAMMO PROCEDURES Final Result * Dexa Axial Skeleton Bone Density 1 or 2 Site (11/16/2024 10:08 AM CDT) Anatomical Region Laterality Modality Body N/A Other 11/16/2024 9:36 PM CDT Narrative 11/16/2024 9:38 PM CDT EXAM DESCRIPTION: DEXA AXIAL SKELETON BONE DENSITY 1 OR MORE SITES REASON FOR STUDY: 74 y/o year old F with given history of: menopause screening Price Checker/Model: [employer] (S/N 76899) Facility LSC value of 0.022 for the [...] Johan Harry M.D. MF: NILO Report ID: [id number] Reading Location: [id number] Procedure Note Johan Harry MD - 11/16/2024 EXAM DESCRIPTION: DEXA AXIAL SKELETON BONE DENSITY 1 OR MORE SITES REASON FOR STUDY: 74 y/o year old F with given history of: menopause screening Price Checker/Model: [employer] SL (S/N 59752) Facility LSC value of 0.022 for the [...] Johan Harry M.D. MF: NILO Report ID: [id number] Reading Location: [place] [address] us Anila Patino MD IMG DXA PROCEDURES Final R esult * Stool DNA - Cologuard (02/27/2024 3:30 PM CDT) Pathologist [facility] [place] Stool DNA - Cologuard Negative Negative [facility] (CLIA #:[id number]) Comment: NEGATIVE TEST RESULT. A negative Cologuard [...] screened with both Cologuard and colonoscopy. (Alfreda T. et al, N Engl J Med 2014;370(14):0989-0834) The normal value (reference range) for this assay is negative. COLOGUARD RE-SCREENING RECOMMENDATION: Periodic colorectal cancer screening is an important part of preventive healthcare for asymptomatic individuals at average risk for colorectal cancer. Following a negative Cologuard result, the [place] Cancer Society and U.S. Multi-Society Task Force screening guidelines recommend a Cologuard re-screening interval of 3 years. References: [place] [employer] Society Guideline for Colorectal Cancer Screening: https://www.cancer.org/cancer/guftu-rgwaug-kxhkqx/zumscodfh-qvmrsywqe-oktnyyi/ac s-rec ommendations.html.; Dillan MALIK, Ladi MOREJON, Neville GAMBOA, Colorectal Cancer Screening: Recommendations for Physicians and Patients from the U.S. Multi-Society Task Force on Colorectal Cancer Screening , Am J Gastroenterology 2017; 112:9670-0825. TEST DESCRIPTION: Composite algorithmic analysis of stool [...] screened with both Cologuard and colonoscopy. (Alfreda Kang. et al, N Engl J Med 2014;370(14):0526-8983.) Cologuard may produce a false negative or false positive result (no colorectal cancer or precancerous polyp present at colonoscopy follow up). A negative Cologuard test result does not guarantee the absence of CRC or advanced adenoma (pre-cancer). The current Cologuard screening interval is every 3 years. ([place] Cancer Society and U.S. Multi-Society Task Force). Cologuard performance data in a 10,000 patient pivotal study using colonoscopy as the reference method can be accessed at the following location: www.Lyst.Hit Streak Music/results. Additional description of the Cologuard test process, warnings and precautions can be found at www.Pin-Digitalrd.com. Stool 02/27/2024 3:30 PM CDT 04/10/2024 1:20 PM CDT us Miriam Deleon NP LAB BODY FLUIDS AND STOOLS ORDER AZIZA Final Result [facility] (CLIA #:[id number]) [address] [place] [address] * COLONOSCOPY (05/29/2017 12:18 PM REVENUE COLLECTOR) Anatomical Region Laterality Modality Other Narrative Procedure Note Holly Pappas MD - 05/29/2017 12:18 PM CST [facility] Patient Name: Estefany Loja Procedure Date: 05/29/2017 12:18PM Date of : 1950 Admit Type: Outpatient Age: 67 Gender: Female Attending MD: Holly Pappas M.D. Room: [facility] ENDOSCOPY CAPSULE Note Status: Finalized [...] passed under direct vision.The Pediatric Colonoscope PCF-H190L [id number] was introduced through the anus and advanced [...] 12:18 PM Procedure Code(s): --- Professional --- 32827, Colonoscopy, flexible; diagnostic, including collection of specimen(s) by brushing or washing, when performed (separateprocedure) Diagnosis Code(s): --- Professional --- R10.32, Left lower quadrant pain K57.30, Diverticulosis of large intestine without perforation orabscess without bleeding CPT copyright 2014 [place] [employer]. All rights reserved. The codes documented in this report are preliminary and upon hourly shift manager reviewmay be revised to meet current compliance requirements. Recognized by the [place] Society for Gastrointestinal Endoscopy for promoting quality in endoscopy Holly Pappas MD ENDOSCOPY PROCEDURES Final Result * Hepatitis panel, acute (05/29/2017 4:23 AM REVENUE COLLECTOR) Hep A IgM Negative Negative [facility] (ANJU) Comment:Testing performed by : [facility], [address] [place] [address], [id number] Hep B core IgM Negative Negative [facility] (ANJU) Comment:Testing performed by : [facility], [address] [place] [address], [address] Hep C Ab Negative Negative [facility] (ANJU) Comment:Testing performed by : [facility], [address] [place] [address], [address] HepBsAg Negative Negative [facility] (ANJU) Comment:Testing performed by : [facility], [address] [place] [address], [address] Blood specimen (specimen) 05/29/2017 4:23 AM REVENUE COLLECTOR 05/29/2017 11:39 AM REVENUE COLLECTOR Narrative [facility] (ANJU) - 05/29/2017 12:24 PM REVENUE COLLECTOR us Marco Scott MD LAB MICROBIOLOGY - GENER AL ORDERABLES Final Result [facility] (ANJU) 1 [facility] [place] [address] from Last 3 Months or Most Recently Relevant to Health Maintenance Insurance [facility] MEDICARE ADVANTAGE [facility] MEDICARE ADVANTAGE IDPA [facility] MEDICARE ADVANTAGE [facility] MDCR HMO REF [facility] MEDICARE ADVANTAGE IDPA Advance Directives For more information, please contact: [phone] Documents on File Type Date Recorded Patient Union Steward Expl anation ADVANCE DIRECTIVE 10/05/2018 1:10 PM DNR ADVANCE DIRECTIVE 01/27/2006 LANA Cuevas * Full Code (Latest Code Status on [...] 5:23 PM 05/28/2017 12:24 AM Care Teams Neonatal Intensive Care Nurse Relationship Specialty Start Date End Date Anila Patino MD PCP - General 09/13/16 Salomon Medrano MD [address] [facility] [address] [place] [address] Rheumatology 01/02/17 Rosalinda Looney MD [address] [facility] [address] [place] [address] Psychiatry 01/02/17 Lit Singer MD [address] [facility] [address] [place] [address] Radiation Oncology 01/02/17 Johan Marti MD [address] [facility] [address] [place] [address] Neurosurgery 01/02/17 Tino Still MD [address] [place] [address] DR TOR[address] [address] Surgeon Orthopedic Surgery 09/19/17 Matt Rcihardson DO [address] [place] [address] DR BRI[address] Eagle [facility] [address] [place] [address] Consulting Physician Gastroenterology 12/10/19 Yasmine Yanes MD [address] [place] [address] [address] BRI[address] Eagle [facility] [address] [place] [address] Consulting Physician Cardiology 07/23/21 Hero Jackman MD [address] [facility] [address] [place] [address] Consulting Physician Sleep Medicine 07/22/23 Ronal Jackson MD [address] [place] [address] Consulting Physician Pulmonary Disease 02/19/24 Kristen Perez MD [address] [place] [address] Anesthesiologist Pain Management 02/19/24 Ryan Sanders MD [address] [place] [address] Consulting Physician Urology 05/04/22 Geovanna Avlarenga DPM [address] [place] [address] Consulting Physician Foot and Ankle Surg 05/04/24 Ariadne Shook NP [address] [place] [address] Nurse Practitioner Neurology 06/01/24 Tabby Light, RN [address] [place] [address] [address] [place] [address] Machine Rebuilder 07/05/24 Junior Tobin MD 2 [facility] [address] [place] [phone] Consulting Physician Urology 07/21/24
--- OUTSIDE RECORDS SUMMARY | 2025-02-25 11:19 | XMS_ITS | Encounter Summary ---
Author Organization [facility] Address [address] [place] [address] Phone Care Team Providers Care Account Relationship Manager Name Role Phone Anila Patino MD Primary Care Provider [phone] Salomon Medrano MD Unavailable [phone] Rosalinda Looney MD Unavailable Shaquille Blanco MD Unavailable Lit Singer MD Unavailable Johan Marti MD Unavailable Tino Still MD Unavailable Matt Richardson DO Unavailable [phone] Pema Gill MD Unavailable [phone] Jus Patel MD Unavailable [phone] Haja Luciano MD Unavailable [phone] Yasmine Yanes MD Unavailable Yasmine Yanes MD Unavailable Samantha Mir RN Unavailable Unavailable Tabby Mcclendon MD Unavailable Haja Page MD PhD Unavailable + Pema Gill MD Unavailable [phone] Chandler Trejo MD Unavailable [phone] Johan Marti MD Unavailable [phone] MichaelAriadne palencia Ricarda PAINT PREPPER Unavailable [phone] Pema Gill MD Unavailable [phone] Hero Jackman MD Unavailable Ronal Jackson MD Unavailable Kristen Perez MD Unavailable [phone] Ryan Sanders MD Unavailable Geovanna AlvarengaM Unavailable [phone] [facility] Center[facility]encia Ricarda PAINT PREPPER Unavailable [phone] Tabby Light RN Unavailable [phone] Junior Tobin MD Unavailable Encounter Details Date Type Department Care Team (Late st Contact Info) Description 05/24/2020 Orders Only [facility] [address] [place] [address] Scanning, Provider Social History Tobacco [...] on file Legal Sex Female 4:42 AM GRAIN INSPECTOR Gender Identity Female 03/06/2022 7:30 PM CDT Sexual Orientation Straight 03/06/2022 7: 30 PM CDT Occupation Industry Job Start Date Job End Date disabled Not on file Not on file Not on file documented as of this encounter Plan of Treatment Upcoming Encounters Date Type Department Care Team (Latest Contact Info) Description 02/25/2025 12:30 PM CDT Ancillary Procedure Madeira Loom Repairer [address] [facility] [address] [place] [address] SSS (sick sinus syndrome) (HCC); Cardiac pacemaker in situ 09/07/2025 Orders Only [facility] [address] [place] [phone] Scanning, Provider documented as of this encounter Procedures Procedure Name Priority Date/Time Associated Diagnosis Comments SCAN - LABS 05/24/2020 documented in this encounter Results * SCAN - LABS (05/24/2020) us Provider Scanning Final Result documented in this encounter Visit Diagnoses Not on filedocumented in this encounter Additional Health Concerns Infection Onset Date Last Indicated Resolved Time COVID: Suspected 08/04/2020 08/04/2020 08/04/2020 2:35 PM GRAIN INSPECTOR COVID: Suspected 10/05/2020 10/05/2020 10/05/2020 1:07 PM CDT COVID: Suspected 12/16/2020 12/16/2020 12/16/2020 3:40 PM CDT COVID: Suspected 03/15/2021 03/15/2021 03/15/2021 8:52 AM CDT COVID: Suspected 08/15/2021 08/15/2021 08/16/2021 3:05 AM GRAIN INSPECTOR COVID: Suspected 05/20/2022 05/20/2022 05/20/2022 2:35 PM GRAIN INSPECTOR COVID19 05/20/2022 05/20/2022 05/30/2022 3:05 AM GRAIN INSPECTOR COVID: Recovered Comment:Added based on recent COVID infection. 05/30/2022 05/30/2022 08/28/2022 3:05 AM C DT COVID: Suspected 01/13/2023 01/14/2023 01/14/2023 3:05 AM CDT COVID: Suspected 05/02/2023 05/02/2023 05/02/2023 5:51 PM GRAIN INSPECTOR COVID: Suspected 10/10/2023 10/10/2023 10/10/2023 4:01 PM CDT COVID: Suspected 12/06/2024 12/06/2024 12/06/2024 12:57 PM CDT documented as of this encounter Care Teams Account Relationship Manager Relationship Specialty Start Date End Date Anila Patino MD PCP - General 09/13/16 Salomon Medrano MD [address] [facility] [address] [place] [address] Rheumatology 01/02/17 Rosalinda Looney MD [address] [place] [address] Psychiatry 01/02/17 [place] [address] [address] [facility] [address] [place] [address] Surgeon Orthopedic Surgery 01/02/17 01/27/22 [place] [address] [address] [facility] [address] [place] [address] Radiation Oncology 01/02/17 [place] [address] [address] [facility] [address] [place] [address] Neurosurgery 01/02/17 Tino Still MD [address] [place] [address] [address]RI[address] [place] [address] Surgeon Orthopedic Surgery 09/19/17 Matt Richardson DO [address] [place] [address] [address] BRI[address] Eagle [address] [place] [address] Consulting Physician Gastroenterology 12/10/19 Pema Gill MD [address] [place] [address] Fellow Pulmonary Disease 01/21/20 02/18/24 Jus Patel MD [address] [place] [address] Consulting Physician Urology 01/21/20 02/05/23 Haja Luciano MD [address] [place] [address] Consulting Physician Cardiovascular Disease 12/21/20 Yasmine Yanes MD [address] [place] [address] Consulting Physician Cardiology 07/23/21 Yasmine Yanes MD [address] [place] [address] Consulting Physician Cardiology 07/23/21 01/27/22 Samantha Mir RN Registered Nurse Pulmonary Disease 01/10/22 02/18/24 Tabby Mcclendon MD [address] [address] Training Coordinator Obstetrics and Gynecology 01/28/22 07/30/22 Haja Page MD PhD [address] [place] [address] Consulting Physician Neurology 05/04/22 05/03/24 Pema Gill MD [address] [place] [address] Fellow Pulmonary Disease 06/21/22 07/30/22 Chandler Trejo MD [address] [place] [address] [address] [place] [address] Consulting Physician Gastroenterology 07/31/22 02/18/24 Johan Marti MD [address] [place] [address] [address] L[address] [place] [address] Referring Physician Neurosurgery 02/06/23 05/03/24 Ariadne Shook, ROSITA [address] [place] [address] Nurse Practitioner Neurology 07/22/23 05/03/24 Pema Gill MD [address] [place] [address] Fellow Pulmonary Disease 07/22/23 07/22/23 Hero Jackman MD [address] [facility] NEUROLOGY [facility]EP [facility] [address] [place] [address] Consulting Physician Sleep Medicine 07/22/23 Ronal Jackson MD [address] [place] [address] Consulting Physician Pulmonary Disease 02/19/24 Kristen Perez MD [address] [place] [address] Anesthesiologist Pain Management 02/19/24 Ryan Sanders MD [address] [address] Consulting Physician Urology 05/04/22 Geovanna Alvarenga DPM [address] [place] [address] Consulting Physician Foot and Ankle Surg 05/04/24 Ariadne Shook, ROSITA [facility] [address] [place] [address] Nurse Practitioner Neurology 06/01/24 Tabby Light, CARINA [address] [place] [address] [address] [place] [address] Slat Pickler 07/05/24 Junior Tobin MD [address] [address] Consulting Physician Urology 07/21/24 documented as of this encounter
--- OUTSIDE RECORDS SUMMARY | 2025-02-25 11:19 | XMS_ITS | Encounter Summary ---
Author Organization [facility] Address [address] [place] [address] Phone Care Team Providers Care Marina Manager Name Role Phone Anila Patino MD Primary Care Provider [phone] Srinath Rodriguez DPM Unavailable [phone] Buster Xiong Unavailable Unavailable Kai LOUISE MD, Courtney Unavailable [phone] Haja Jones MD Unavailable [phone] Encounter Details Date Type Department Care Team (Latest Contact Info) Description 07/27/2024 Lab Requisition [facility] Services [address] [place] [phone] Haja Jones MD [address] [address] Urinary tract infection, site not specified; Other abnormal findings on microbiological examination of urine Social History Tobacco Use Types Packs/Day Years Used Date Smoking Tobacco: Never Smokeless Tobacco: Never Alcohol Use Standard Drinks/Week Comments Yes 0 (1 standard drink = 0.6 oz pur e alcohol) rarely [facility] Utilities Answer Date Recorded In the past 12 months has th e BigBad, gas, oil, or water Clickst threatened to shut off services in your [...] How often do you attend chur or jew services? More than 4 times per year 06/30/2024 Do you belong to any clubs o r organizations such as taoism groups, unions, fraternal or athletic groups, or [...] Score - Questions 1-9 1 05/0 09/2020 [facility] - Occupational Stress [...] any time in the past 12 m [facility], were you homeless or living in a senior living (including now)? No 06/30/2024 Sexually Active Control [...] Description 03/14/2025 11:30 AM CDT Office Visit [facility] #[address] [place] [address] Haja Jones MD #2 [facility], [address] [address] documented as of this encounter Procedures Procedure Name Priority Date/Time Associated Diagnosis Comments URINALYSIS (UA) MICROSCOPIC ONLY Routine 07/27/2024 10:30 AM WOOD CALKER Urinary tract infection, site not specified Other abnormal findings on microbiological examination of urine CULTURE, URINE Routine 07/27/2024 10:30 AM WOOD CALKER Urinary tract infection, site not specified Other abnormal findings on microbiological examination of urine documented in this encounter Results * CULTURE, URINE (07/27/2024 10:30 AM WOOD CALKER) CULTURE RESULTS Mixed Growth of One or More Distal Urethral Contaminants 07/29/2024 12:00 AM WOOD CALKER [facility] Culture (Clean Catch) No Phlebotomy Charged / Unknown 07/27/2024 10:30 AM WOOD CALKER 07/27/2024 11:19 AM WOOD CALKER us Haja Jones MD MICROBIOLOGY - GENERAL ORDERABLES Final Result [facility] [address] [facility] [place] [address], * (ABNORMAL) URINALYSIS (UA) MICROSCOPIC ONLY (07/27/2024 10:30 AM WOOD CALKER) WBC (Urine) 0-5 Negative, 0-5 /hpf 07/27/2024 12:09 PM WOOD CALKER [facility] URINE RBC'S 0-2 Negative, 0-2 /hpf 07/27/2024 12:09 PM WOOD CALKER [facility] EPITHELIAL CELLS Small amount /lpf 07/27/2024 12:09 PM WOOD CALKER [facility] BACTERIA, URINE Few(A) Negative /hpf 07/27/2024 12:09 PM WOOD CALKER [facility] Urine Non-Phlebotomy Collection / Unknown 07/27/2024 10:30 AM WOOD CALKER 07/27/2024 11:19 AM WOOD CALKER us Haja Jones MD URINE ORDERABLES Final Result [facility] #[address] [place] [address] documented in this encounter Visit Diagnoses Diagnosis Urinary tract infection, site not specified Other abnormal findings on microbiological examination of urine documented in this encounter Additional Health Concerns Infection Onset Date Last Indicated Resolved Time ESBL 11/01/2024 11/01/2024 Assessment Noted Time PHQ-9 Depression Total Score: 1 10/18/19 21 10:30 AM CDT documented as of this encounter Care Teams Marina Manager Relationship Specialty Start Date End Date Anila Patino MD [address] [facility] [address] PCP - General Internal Medicine 04/15/15 Srinath Rodriguez DPM [address] [place] [address] Podiatry 08/01/16 Buster Xiong [address] [facility] [place] [address] 08/01/16 Betty Quinn III, MD #[address] [place] [address] Consulting Physician Urology 12/23/22 Haja Jones MD [address] [place] [address] Consulting Physician Urology 07/21/23 documented as of this encounter
--- OUTSIDE RECORDS SUMMARY | 2025-02-25 11:19 | XMS_ITS | Encounter Summary ---
Author Organization [facility] Address [address] [place] [address] Phone Care Team Providers Care Instructional Aide Name Role Phone Anila Patino MD Primary Care Provider [phone] Salomon Medrano MD Unavailable [phone] Rosalinda Looney MD Unavailable Shaquille Blanco MD Unavailable Lit Singer MD Unavailable Johan Marti MD Unavailable Tino Still MD Unavailable Matt Richardson DO Unavailable [phone] Pema Gill MD Unavailable [phone] Jus Patel MD Unavailable Haja Luciano MD Unavailable [phone] Yasmine Yanes MD Unavailable Yasmine Yanes MD Unavailable Samantha Mir RN Unavailable Unavailable Tabby Mcclendon MD Unavailable Haja Page MD PhD Unavailable + Pema Gill MD Unavailable [phone] Chandler Trejo MD Unavailable [phone] Johan Marti MD Unavailable [phone] MichaelAriadne palencia Ricarda OCCUPATIONAL THERAPY PROFESSOR Unavailable [phone] Pema Gill MD Unavailable [phone] Hero Jackman MD Unavailable Ronal Jackson MD Unavailable Kristen Perez MD Unavailable [phone] Ryan Sanders MD Unavailable Geovanna AlvarengaM Unavailable [phone] [facility] Ricarda OCCUPATIONAL THERAPY PROFESSOR Unavailable [phone] Tabby Light RN Unavailable [phone] Junior Tobin MD Unavailable Encounter Details Date Type Department Care Team (Late st Contact Info) Description 05/10/2020 Orders Only [facility] [address] [place] [address] Scanning, Provider Social History Tobacco [...] on file 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 Gender Identity Female 03/06/2022 7:30 PM CDT Sexual Orientation Straight 03/06/2022 7: 30 PM CDT Occupation Industry Job Start Date Job End Date disabled Not on file Not on file Not on file documented as of this encounter Plan of Treatment Upcoming Encounters Date Type Department Care Team (Latest Contact Info) Description 02/25/2025 12:30 PM CDT Ancillary Procedure [employer] [address] [facility] [address] [place] [address] SSS (sick sinus syndrome) (HCC); Cardiac pacemaker in situ 09/07/2025 Orders Only [facility] [address] [place] [phone] Scanning, Provider documented as of this encounter [...] COVID: Suspected 08/04/2020 08/04/2020 08/04/2020 2:35 PM AIRCRAFT CABIN CLEANER COVID: Suspected 10/05/2020 10/05/2020 10/05/2020 1:07 PM CDT COVID: Suspected 12/16/2020 12/16/2020 12/16/2020 3:40 PM CDT COVID: Suspected 03/15/2021 03/15/2021 03/15/2021 8:52 AM CDT COVID: Suspected 08/15/2021 08/15/2021 08/16/2021 3:05 AM AIRCRAFT CABIN CLEANER COVID: Suspected 05/20/2022 05/20/2022 05/20/2022 2:35 PM AIRCRAFT CABIN CLEANER COVID19 05/20/2022 05/20/2022 05/30/2022 3:05 AM AIRCRAFT CABIN CLEANER COVID: Recovered Comment:Added based on recent COVID infection. 05/30/2022 05/30/2022 08/28/2022 3:05 AM C DT COVID: Suspected 01/13/2023 01/14/2023 01/14/2023 3:05 AM CDT COVID: Suspected 05/02/2023 05/02/2023 05/02/2023 5:51 PM AIRCRAFT CABIN CLEANER COVID: Suspected 10/10/2023 10/10/2023 10/10/2023 4:01 PM CDT COVID: Suspected 12/06/2024 12/06/2024 12/06/2024 12:57 PM CDT documented as of this encounter Care Teams Instructional Aide Relationship Specialty Start Date End Date Anila Patino MD PCP - General 09/13/16 Salomon Medrano MD [address] [facility] [address] [place] [address] Rheumatology 01/02/17 Rosalinda Looney MD [address] [facility] [address] [place] [address] Psychiatry 01/02/17 [place] [address] [address] [address] Surgeon Orthopedic Surgery 01/02/17 01/27/22 [place] [address] [address] Radiation Oncology 01/02/17 [place] [address] [address] [address] Neurosurgery 01/02/17 Tino Still MD [address] [facility] [address] [place] [address] Surgeon Orthopedic Surgery 09/19/17 Matt Richardson DO [address] [place] [address] [address] [place] [address] Consulting Physician Gastroenterology 12/10/19 Pema Gill MD [address] [place] [address] Fellow Pulmonary Disease 01/21/20 02/18/24 Jus Patel MD [address] [place] [address] Consulting Physician Urology 01/21/20 02/05/23 Haja Luciano MD [address] [place] [address] Consulting Physician Cardiovascular Disease 12/21/20 Yasmine Yanes MD [address] [place] [address] Consulting Physician Cardiology 07/23/21 Yasmine Yanes MD [address] [place] [address] Consulting Physician Cardiology 07/23/21 01/27/22 Samantha Mir, CARINA Registered Nurse Pulmonary Disease 01/10/22 02/18/24 Tabby Mcclendon MD [address] [place] [address] Freelance Art Director Obstetrics and Gynecology 01/28/22 07/30/22 Haja Page MD PhD [address] [place] [address] Consulting Physician Neurology 05/04/22 05/03/24 Pema Gill MD [address] [place] [address] Fellow Pulmonary Disease 06/21/22 07/30/22 Chandler Trejo MD [address] [place] [address] ALBA Sharp [facility] [place] [address] Consulting Physician Gastroenterology 07/31/22 02/18/24 Johan Marti MD [address] [place] [address] ALBA Lila [facility] [place] [address] Referring Physician Neurosurgery 02/06/23 05/03/24 Ariadne Shook, ROSITA [address] [place] [address] Nurse Practitioner Neurology 07/22/23 05/03/24 Pema Gill MD [address] [place] [address] Fellow Pulmonary Disease 07/22/23 07/22/23 Hero Jackman MD [address] [facility] NEUROLOGY SLEEP [facility] [address] [place] [address] Consulting Physician Sleep Medicine 07/22/23 Ronal Jackson MD [address] [place] [address] Consulting Physician Pulmonary Disease 02/19/24 Kristen Perez MD [address] [place] [address] Anesthesiologist Pain Management 02/19/24 Ryan Sanders MD [address] [address] Consulting Physician Urology 05/04/22 Geovanna Alvarenga DPM [address] [place] [address] Consulting Physician Foot and Ankle Surg 05/04/24 Ariadne Shook NP [address] [place] [address] Nurse Practitioner Neurology 06/01/24 Tabby Light, RN [address] [place] [address] Lithograph Press Feeder 07/05/24 Junior Tobin MD [address] [address] Consulting Physician Urology 07/21/24 documented as of this encounter
--- OUTSIDE RECORDS SUMMARY | 2025-02-25 11:19 | XMS_ITS | Encounter Summary ---
Author Organization [facility] Healthcare Address [address] [place] [address] Care Team Providers Care Transaction Processor Name Role Phone Anila Patino MD Primary Care Provider [phone] Salomon Medrano MD Unavailable [phone] Rosalinda Looney MD Unavailable Lit Singer MD Unavailable Johan Marti MD Unavailable Tino Still MD Unavailable Matt Richardson DO Unavailable Yasmine Yanes MD Unavailable Hero Jackman MD Unavailable Ronal Jackson MD Unavailable Kristen Perez MD Unavailable Ryan Sanders MD Unavailable Geovanna Alvarenga DPM Unavailable Ariadne Shook NP Unavailable [phone] Tabby Light RN Unavailable Junior Tobin MD Unavailable Encounter Details Date Type Department Care Team (Late st Contact Info) Description 11/23/2024 Orders Only [facility] Health Information Management [address] [place] [address] Scanning, Provider Social History Tobacco Use Types Packs/Day Years Used Date Smoking Tobacco: Never Passive Smoke Exposure: Past Smokeless Tobacco: Never Alcohol Use Standard Drinks/Week Comments No 0 (1 standard drink = 0.6 oz pure alcohol) occassional mixed drink for special occassions [facility] Utilities Answer Date Recorded In the past 12 months has th e [employer], gas, oil, or water [employer] threatened to shut off services in your [...] week 07/05/2024 How often do you attend [facility] or jainism services? More than 4 times per year 07/05/2024 Do you belong to any clubs o r organizations such as anglican groups, unions, fraternal or athletic groups, or [...] time in the past 12 m [facility], were you homeless or living in a usp (including now)? 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 Gender Identity Female 03/06/2022 7:30 PM CDT Sexual Orientation Straight 03/06/2022 7: 30 PM CDT Occupation Industry Job Start Date Job End Date disabled Not on file Not on file Not on file documented as of this encounter Plan of Treatment Upcoming Encounters Date Type Department Care Team (Latest Contact Info) Description 02/25/2025 12:30 PM CDT Ancillary Procedure [place] Z[employer] Zag Stitcher [address] [place] [address] SSS (sick sinus syndrome) (HCC); Cardiac pacemaker in situ 09/07/2025 Orders Only [facility] [address] [place] [address] Scanning, Provider documented as of [...] take, when to call CM or provider. [facility] Chronic Pain Care Plan Chronic Care Management [...] on stairs Contact your local community or [facility] for information on exercise, fall prevention programs, [...] documented as of this encounter Care Teams Transaction Processor Relationship Specialty Start Date End Date Anila Patino MD PCP - General 09/13/16 Salomon Medrano MD [address] [facility] [address] [place] [address] Rheumatology 01/02/17 Rosalinda Looney MD [address] [facility] [address] [place] [address] Psychiatry 01/02/17 Lit Singer MD [address] [facility] [address] [place] [address] Radiation Oncology 01/02/17 Johan Marti MD [address] [facility] [address] [place] [address] Neurosurgery 01/02/17 Tino Still MD [address] [place] [address] [address] [facility] [address] [place] [address] Surgeon Orthopedic Surgery 09/19/17 Matt Richardson DO [address] [facility] [address]RI[address] Eagle [facility] [address] [place] [address] Consulting Physician Gastroenterology 12/10/19 Yasmine Yanes MD [address] [facility] [address]RI[address] Eagle [facility] [address] [place] [address] Consulting Physician Cardiology 07/23/21 Hero Jackman MD [address] [facility] NEUROLOGY SLEEP [facility] [address] [place] [address] Consulting Physician Sleep Medicine 07/22/23 Ronal Jackson MD [address] [place] [address] Consulting Physician Pulmonary Disease 02/19/24 Kristen Perez MD [address] [place] [address] Anesthesiologist Pain Management 02/19/24 Ryan Sanders MD 2 [facility] [address] [place] [address] Consulting Physician Urology 05/04/22 Geovanna Alvarenga DPM [address] [place] [address] Consulting Physician Foot and Ankle Surg 05/04/24 Ariadne Shook, ROSITA [address] [place] [address] Nurse Practitioner Neurology 06/01/24 Tabby Light, RN [address] [place] [address] [address] [place] [address] Records Officer 07/05/24 Junior Tobin MD 2 [facility] [address] [place] [address] Consulting Physician Urology 07/21/24 documented as of this encounter
--- OUTSIDE RECORDS SUMMARY | 2025-02-25 11:19 | XMS_ITS | Encounter Summary ---
Author Organization [facility] Healthcare Address [address] [place] [address] Care Team Providers Care Piercing Machine Operator Name Role Phone Anila Patino MD Primary Care Provider [phone] Salomon Medrano MD Unavailable [phone] Rosalinda Looney MD Unavailable Lit Singer MD Unavailable Johan Marti MD Unavailable Tino Still MD Unavailable Matt Richardson DO Unavailable [phone] Yasmine Yanes MD Unavailable Hero Jackman MD Unavailable Ronal Jackson MD Unavailable Kristen Perez MD Unavailable Ryan Sanders MD Unavailable Geovanna Alvarenga DPM Unavailable Ariadne Shook NP Unavailable [phone] Tabby Light RN Unavailable Junior Tobin MD Unavailable Encounter Details Date Type Department Care Team (Late st Contact Info) Description 10/13/2024 Orders Only [facility] Health Information Management [address] [place] [address] Scanning, Provider Social History Tobacco Use Types Packs/Day Years Used Date Smoking Tobacco: Never Passive Smoke Exposure: Past Smokeless Tobacco: Never Alcohol Use Standard Drinks/Week Comments No 0 (1 standard drink = 0.6 oz pure alcohol) occassional mixed drink for special occassions [facility] Utilities Answer Date Recorded In the past 12 months has th e [employer], gas, oil, or water [employer] threatened to shut off services in your [...] week 07/05/2024 How often do you attend [facility] or amish services? More than 4 times per year 07/05/2024 Do you belong to any clubs o r organizations such as religion groups, unions, fraternal or athletic groups, or [...] any time in the past 12 m [facility], were you homeless or living in a care home (including now)? No 07/05/2024 Personal Safety Answer Date Recorded Getting School Help Needed Denies 05/26 Comments No Sex and Gender Information Value Date Recorded Sex Assigned at Not on file Legal Sex Female 4:42 AM [employer] Gender Identity Female 03/06/2022 7:30 PM CDT Sexual Orientation Straight 03/06/2022 7: 30 PM CDT Occupation Industry Job Start Date Job End Date disabled Not on file Not on file Not on file documented as of this encounter Plan of Treatment Upcoming Encounters Date Type Department Care Team (Latest Contact Info) Description 02/25/2025 12:30 PM CDT Ancillary Procedure [place] Solid Fiber Paster Operator [address] [place] [phone] SSS (sick sinus syndrome) (HCC); Cardiac pacemaker in situ 09/07/2025 Orders Only [facility] [address] [place] [address] Scanning, Provider documented as of [...] take, when to call CM or provider. [facility] Chronic Pain Care Plan Chronic Care [...] on stairs Contact your local community or [facility] for information on exercise, fall prevention [...] documented as of this encounter Care Teams Piercing Machine Operator Relationship Specialty Start Date End Date Anila Patino MD PCP - General 09/13/16 Salomon Medrano MD [address] [facility] [address] [place] [address] Rheumatology 01/02/17 Rosalinda Looney MD [address] [facility] [address] [place] [address] Psychiatry 01/02/17 Lit Singer MD [address] [facility] [address] [place] [address] Radiation Oncology 01/02/17 Johan Marti MD [address] [facility] [address] [place] [address] Neurosurgery 01/02/17 Tino Still MD [address] [place] [address] [address] [facility] [address] [place] [address] Surgeon Orthopedic Surgery 09/19/17 Matt Richardson DO [address] [facility] [address] BRIAN Eagle [facility] [address] [place] [address] Consulting Physician Gastroenterology 12/10/19 Yasmine Yanes MD [address] [facility] [address] BRI[address] Eagle [facility] [address] [place] [address] Consulting Physician Cardiology 07/23/21 Hero Jackman MD [address] [facility] NEUROLOGY SLEEP [facility] [address] [place] [address] Consulting Physician Sleep Medicine 07/22/23 Ronal Jackson MD [address] [place] [address] Consulting Physician Pulmonary Disease 02/19/24 Kristen Perez MD [address] [place] [address] Anesthesiologist Pain Management 02/19/24 Ryan Sanders MD 2 [facility] [address] [place] [address] Consulting Physician Urology 05/04/22 Geoavnna Alvarenga DPM [address] [place] [address] Consulting Physician Foot and Ankle Surg 05/04/24 Ariadne Shook, ROSITA [address] [place] [address] Nurse Practitioner Neurology 06/01/24 Tabby Light, RN [address] [place] [address] [address] [place] [address] Floral Department Specialist 07/05/24 Junior Tobin MD 2 [facility] [address] [place] [phone] Consulting Physician Urology 07/21/24 documented as of this encounter
--- OUTSIDE RECORDS SUMMARY | 2025-02-25 11:19 | XMS_ITS | Clinical Summary ---
Author Organization [facility] Address [address] [place] [address] Phone Care Team Providers Care Grain Mixer Name Role Phone Anila Patino MD Primary Care Provider [phone] Srinath Rodriguez DPM Unavailable [phone] Buster Xiong Unavailable Unavailable Kai LOUISE MD, Courtney Unavailable [phone] Haja Jones MD Unavailable [phone] Allergies Active Allergy Reactions Criticality Noted Date [...] CONCENTRATOR take 4 L by inhalation continuous. [employer] Use portable tanks when concentrator is not available Per Dr Jackson, neonatal specialist, may titrate up to 5 L to [...] morbid obesity due to excess calories 2016 [place] of toe 08/01/2016 Pain in toe of [...] Type Department Care Team Description 02/02/2025 Telephone [facility] [address] [place] [address] Haja Jones MD 01/31/2025 11:00 AM CDT Clinical Support [facility] [address] [place] [address] [facility] UTI symptoms (Primary Dx) Discharge Disposition: Discharged to home or Selfcare 01/31/2025 Travel 12/26/2024 10:59 AM CDT - 12/26/2024 3:43 PM CDT Emergency [facility] Emergency [address] [place] [address] Alexis Duffy MD COPD with acute exacerbation (HCC) Discharge Disposition: Discharged to home or Selfcare 12/26/2024 Travel 12/13/2024 11:00 AM CDT Procedure Visit [facility] [address] [place] [address] Haja Jones MD Urethral syndrome (Primary Dx); Female genital prolapse, unspecified type Discharge Disposition: Discharged to home or Selfcare 12/13/2024 Travel from Last 3 Months Immunizations Immunization Administration Dates Next Due COVID-19, Mrna, Lnp-s, Pf, 50 mcg/0.5 mL 024,03/14/2023 Covid-19, Mrna, Lnp-s, Pf, 3 0 Mcg/0.3 Ml Dose (Pfizer) 09/09/2020,08/15/2020 Covid-19, Mrna, Lnp-s, Pf, T ris-sucrose, 30 Mcg/0.3 Ml ([employer]) 03/14/2023 Influenza Vaccine 02/15/2016,03/18/2014,03/29/20 13 Influenza Vaccine greater than 3 yrs 03/20/2016 Influenza Vaccine, Quadrivalent, PF 04/22/2017 Influenza Vaccine,unspecified Formulation 2021,04/21/2017,03/23/2010 Influenza, High-dose, Quadrivalent 03/14/2023, Influenza, Injectable, Quadrivalent 03/20/2016 Influenza, Seasonal, Injectable, Undefined 03/20,03/16/2015 Influenza, Trivalent, Adjuvanted, PF 03/15/2024 Influenza, high-dose, trivalent, PF 05/07/2019,1 Pneumococcal Vaccine - 13 Valent 07/20/2020,0311/2014 Pneumococcal Vaccine Adult - 23 Valent 6,05/21/2010,12/09/2008 Pneumococcal conjugate PCV20 , polysaccharide [id number] conjugate, adjuvant, PF 03/14/2023 RSV, Bivalent, Protein [...] = 0.6 oz pur e alcohol) rarely [employer] Answer Date Recorded In the past 12 months has [employer], or water [employer] threatened to shut off services in your [...] week 06/30/2024 How often do you attend [facility] or oriental orthodox services? More than 4 times per year 06/30/2024 Do you belong to any clubs o r organizations such as bahai groups, unions, fraternal or athletic groups, or [...] Score - Questions 1-9 1 05/0 09/2020 [facility] of Occupat ional [facility] - Occupational Stress Questionnaire Answer Date Recorded [...] any time in the past 12 m [facility], were you homeless or living in a chcf (including now)? No 06/30/2024 Sexually Active Control [...] 03/14/2025 11:30 AM CDT Office Visit [facility] UR[facility] [address] [place] [address] Haja Jones MD [address] [address] Health Maintenance Due Date Last Done Comments Cologuard 1997 Colonoscopy 1997 Influenza Immunization (#1) 02/14/202502/16, 03/14/2023, 03/16/2022, Additional history exists SARS-COV-2 Immunization [...] this topic Medical Devices Implanted Type Area Digital Imager Device Identifier Shelf Expiration Date Model / Serial / Lot K-Wire Plain .062 - [id number] Implanted:Qty: 1 on 09/06/2016 by Srinath Rodriguez DPM at [facility] IMPLANT Right: Toe [employer] [id number]-[id number] / / [id number] Pacemaker Edora 8 Sanchez - [id number] Implanted:Qty: 1 on 08/31/2020 by Haja Luciano MD at [facility] IMPLANT Left: Chest [employer] 12/13/2021 [id number] / [id number] / N/A Solia T 53 Implanted:Qty: 1 on 08/31/2020 by Haja Luciano MD at [facility] Left: Chest [employer] 05/15/2022 [id number] / [id number] / N/A Kaitlin Meehan 45 Implanted:Qty: 1 on 08/31/2020 by Haja Luciano MD at [facility] Left: Chest [employer] 04/15/2022 [id number] / [id number] / N/A Procedures Procedure Name Priority Date/Time [...] W/O MICRO Routine 12/13/2024 10:57 AM CDT STOOL, OCCULT BLOOD, DIAGNOSTIC, VIA GUAIAC Routine 07/01/2024 4:03 PM JAVA WEB SERVICES DEVELOPER from Last 3 Months or Most Recently Relevant to Health Maintenance Results * POCT UA AUTOMATED W/O MICRO (01/31/2025 11:13 AM CDT) Only the most recent of2 resultswithin the time period is included. POC [...] 11:13 AM CDT) Only the most recent of2 resultswithin the time period is included. Pathologist [facility] CULTURE RESULTS Mixed Growth of One or More Distal Urethral Contaminants 02/02/2025 12:05 AM CDT [facility] Culture URINE SPECIMEN OBTAINED BY CLEAN CATCH PROCEDURE / Unknown Non-Phlebotomy Collection / Unknown 01/31/2025 11:13 AM CDT 01/31/2025 11:13 AM CDT Haja Jones MD MICROBIOLOGY - GENERAL ORDERABLES Final Result [facility] [address] [place] [address], [place] * TROPONIN I, HIGH SENSITIVITY (HSTRP) (12/26/2024 12:55 PM CDT) Only the most recent of2 resultswithin the time period is included. TROPONIN I, HIGH SENSITIVITY- [place] 5 <=14 ng/L 12/26/2024 1:26 PM CDT [facility] Comment: High-sensitivity troponin I results are reported in ng/L making the result appear to be 1,000 times higher than the contemporary troponin I value which is reported in ng/ml. Results from [place]. Blood Venipuncture / Unknown 12/26/2024 12:55 PM CDT 12/26/2024 1:01 PM CDT us Alexis Duffy MD CHEMISTRY ORDERABLES Final Result [facility] [address] [place] [address] * XR CHEST SINGLE VIEW PORTABLE (12/26/2024 [...] Juliette Painter D.O. PS: PS Report ID: [id number] Reading Location: [id number] Procedure Note Juliette Painter DO - 12/26/2024 [...] Juliette Painter D.O. PS: PS Report ID: [id number] Reading Location: [id number] IMPRESSION: 1. Low lung volumes with mild patchy left basilar airspace opacities, which is likely related to subsegmental atelectasis/scarring and less likely developing airspace disease. 2. Cardiomegaly with mild prominence of pulmonary vasculature. Alexis Duffy MD [facility] DIAGNOSTIC ORDERABLES Final Result * (ABNORMAL) CBC with Auto Differential (12/26/2024 11:20 AM CDT) WBC 12.36(H) 4.00 - 12.00 10(3)/mcL 12/26/2024 11:53 AM CDT [facility] RBC 4.01 3.80 - 5.30 10(6)/mcL 12/26/2024 11:53 AM CDT [facility] HEMOGLOBIN (HGB) 12.1 12.0 - 15.8 g/dL 12/26/2024 11:53 AM CDT [facility] HEMATOCRIT (HCT) 37.9 36.0 - 47.0 % 12/26/2024 11:53 AM CDT [facility] MCV 94.5 82.0 - 96.0 fL 12/26/2024 11:53 AM CDT [facility] MCH 30.2 26.0 - 34.0 pg 12/26/2024 11:53 AM CDT [facility] MCHC 31.9 31.0 - 36.0 g/dL 12/26/2024 11:53 AM CDT [facility] PLATELET COUNT 223 140 - 440 10(3)/mcL 12/26/2024 11:53 AM CDT [facility] RDW 14.4 11.8 - 15.5 % 12/26/2024 11:53 AM CDT [facility] MPV 8.9(L) 9.7 - 12.4 fL 12/26/2024 11:53 AM CDT [facility] NEUTROPHILS 84.9(H) 47.0 - 73.0 % 12/26/2024 11:53 AM CDT [facility] LYMPHOCYTES 8.7(L) 18.0 - 42.0 % 12/26/2024 11:53 AM CDT [facility] MONOCYTES 5.0 4.0 - 12.0 % 12/26/2024 11:53 AM CDT [facility] EOSINOPHILS 0.2 0.0 - 5.0 % 12/26/2024 11:53 AM CDT [facility] BASOPHILS 0.2 0.0 - 1.0 % 12/26/2024 11:53 AM CDT [facility] IMMATURE GRANULOCYTE 1.0(H) 0.0 - 0.4 % 12/26/2024 11:53 AM CDT [facility] Comment:Immature Granulocyte s includes Metamyelocytes, Myelocytes, and Promyelocytes. ABSOLUTE NEUTROPHILS 10.50(H) 1.60 - 7.70 10(3)/[facility] 12/26/2024 11:53 AM CDT [facility] ABSOLUTE LYMPHOCYTES 1.08(L) 1.30 - 3.20 10(3)/[facility] 12/26/2024 11:53 AM CDT [facility] ABSOLUTE MONOCYTES 0.62 0.20 - 1.00 10(3)/[facility] 12/26/2024 11:53 AM CDT [facility] ABSOLUTE EOSINOPHIL 0.02 0.00 - 0.40 10(3)/[facility] 12/26/2024 11:53 AM CDT [facility] ABSOLUTE BASOPHILS 0.02 0.00 - 0.10 10(3)/[facility] 12/26/2024 11:53 AM CDT [facility] ABSOLUTE IMMATURE GRANULOCYTE 0.12(H) 0.00 - 0.03 10 (3) [facility]. 12/26/2024 11:53 AM CDT [facility] NRBC PER 100 WBC 0 12/27/19 11:53 AM CDT [facility] Blood Venipuncture / Unknown 12/26/2024 11:20 AM CDT 12/26/2024 11:49 AM CDT us Alexis Duffy MD HEMATOLOGY ORDERABLES Lorelei l Result [facility] [address] [place] [address] * (ABNORMAL) CMP (Comprehensive Metabolic Panel) (12/26/2024 11:20 AM CDT) SODIUM 142 136 - 145 mmol/L 12/26/2024 12:13 PM CDT [facility] POTASSIUM 3.4(L) 3.5 - 5.1 mmol/L 12/26/2024 12:13 PM CDT [facility] CHLORIDE 103 98 - 107 mmol/L 12/26/2024 12:13 PM CDT [facility] CO2, VENOUS 29 22 - 30 mmol/L 12/26/2024 12:13 PM T [facility] ANION GAP 13.4 <18.0 mmol/L 12/26/2024 12:13 PM T [facility] GLUCOSE 138(H) 70 - 99 mg/dL 12/26/2024 12:13 PM T [facility] BUN 21(H) 10 - 20 mg/dL 12/26/2024 12:13 PM T [facility] CREATININE, BLOOD 0.68 0.60 - 1.00 mg/dL 12/26/2024 12:13 PM [facility] BUN/CREATININE RATIO 31(H) 12 - 20 ratio 12/26/2024 12:13 PM [facility] TOTAL PROTEIN 7.3 6.0 - 8.0 g/dL 12/26/2024 12:13 PM T [facility] ALBUMIN 4.4 3.5 - 5.0 g/dL 12/26/2024 12:13 PM T [facility] A/G RATIO 1.5 1.0 - 2.2 12/26/2024 12:13 PM [facility] CALCIUM 9.1 8.7 - 10.5 mg/dL 12/26/2024 12:13 PM [facility] T BILI 0.5 0.2 - 1.2 mg/dL 12/26/2024 12:13 PM [facility] SGOT (AST) 34 <43 U/L 12/26/2024 12:13 PM [facility] SGPT (ALT) 52 <56 U/L 12/26/2024 12:13 PM [facility] ALKALINE PHOSPHATASE 52 40 - 150 U/L 12/26/2024 12:13 PM [facility] GFR, ESTIMATED >60 >=60 12/26/2024 12:13 PM [facility] Comment: Creatinine Clearance is the preferred criteria for selecting drug dose adjustments in renally impaired patients. The GFR is provided as additional pertinent clinical information. GFR is reported in mL/min/1.73 sq m. Calculation based on the Chronic Kidney Disease Epidemiology Collaboration (CKD- EPI) equation refit without adjustment for race. GFR, EST. >60 >=60 025 12:13 PM CDT [facility] GFR, EST. NONAFRICAN >60 >=60 12/26/2024 12:13 PM CDT [facility] Blood Venipuncture / Unknown 12/26/2024 11:20 AM CDT 12/26/2024 11:49 AM CDT Alexis Duffy MD CHEMISTRY ORDERABLES Final Result [facility] [address] [place] [address] * EKG 12 LEAD (12/26/2024 11:03 AM CDT) Ventricular Rate 72 BPM EXTERNAL EKG Atrial Rate 72 BPM EXTERNAL EKG P-R Interval 154 ms EXTERNAL EKG QRS Duration 88 ms EXTERNAL EKG Q-T Duration 400 ms EXTERNAL EKG QTC CALCULATION 438 ms EXTERNAL EKG P [place] 1 degrees EXTERNAL EKG R [place] -6 degrees EXTERNAL EKG T [place] 29 degrees EXTERNAL EKG 12/26/2024 11:0 3 AM CDT Impressions EXTERNAL EKG - 01/01/2025 6:34 PM CDT Normal sinus rhythm Minimal voltage criteria for LVH, may be normal variant ( R in aVL ) Borderline ECG When compared with ECG of 30-JUN-2024 06:17, No significant change was found Confirmed by Jonatan Ayala ([id number]) on 01/01/2025 6:34:13 PM Narrative Procedure Note Jonatan Ayala MD PhD - 01/01/2025 IMPRESSION: Normal sinus rhythm Minimal voltage criteria for LVH, may be normal variant ( R in aVL ) Borderline ECG When compared with ECG of 30-JUN-2024 06:17, No significant change was found Confirmed by Jonatan Ayala ([id number]) on 01/01/2025 6:34:13 PM us Alexis Duffy MD IMG ECG ORDERABLES Final R esult Performing Organization Address [facility] Co de Phone Number EXTERNAL EKG * EKG SCAN (12/26/2024 12:00 AM CDT) 12/26/2024 us Provider Scan IMG ECG ORDERABLES Final Result Performing Organization Address [facility] Co de Phone Number RESULTING AGENCY * (ABNORMAL) Stool, Occult Blood, Diagnostic, via Guaiac (07/01/2024 4:03 PM JAVA WEB SERVICES DEVELOPER) OCCULT BLOOD DIAG Positive(A ) Negative 07/01/2024 4:48 PM JAVA WEB SERVICES DEVELOPER [facility] Stool STOOL SPECIMEN / Unknown Non-Phlebotomy Collection / Unknown 07/01/2024 4:03 PM JAVA WEB SERVICES DEVELOPER 07/01/2024 4:16 PM JAVA WEB SERVICES DEVELOPER Neil Long MD BODY FLUIDS & STOOLS ORD ERABLES Final Result Performing Organization Address [facility] Co de Phone Number [facility] [address] [place] [address] from Last 3 Months or Most Recently Relevant to Health Maintenance Additional Health Concerns 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 Care Teams Grain Mixer Relationship Specialty Start Date End Date Anila Patino MD [address] [facility] [place] [address] PCP - General Internal Medicine 04/15/15 Srinath Rodriguez DPM [address] [facility] [place] [address] Podiatry 08/01/16 Buster Xiong [address] [facility] [place] [address] 08/01/16 Betty Quinn III, MD [address] [place] [address] Consulting Physician Urology 12/23/22 Haja Jones MD #[address] [facility] [address] [place] [address] Consulting Physician Urology 07/21/23
--- OUTSIDE RECORDS SUMMARY | 2025-02-25 11:19 | XMS_ITS | Encounter Summary ---
Author Organization [facility] Healthcare Address [address] [place] [address] Care Team Providers Care Special Education Instructor Name Role Phone Anila Patino MD Primary Care Provider [phone] Salomon Medrano MD Unavailable [phone] Rosalinda Looney MD Unavailable Lit Singer MD Unavailable Johan Marti MD Unavailable Tino Still MD Unavailable Matt Richardson DO Unavailable [phone] Yasmine Yanes MD Unavailable Hero Jackman MD Unavailable Ronal Jackson MD Unavailable Kristen Perez MD Unavailable Ryan Sanders MD Unavailable Geovanna Alvarenga DPM Unavailable Ariadne Shook NP Unavailable Tabby Light RN Unavailable Junior Tobin MD Unavailable Encounter Details Date Type Department Care Team (Late st Contact Info) Description 02/25/2025 Results Follow-Up [facility] Medical Group [facility] [address] [place] [address] Miriam Deleon NP [address] [place] [address] Hemoglobin A1c, Thyroid Function [place], Urinalysis reflex to microscopic and culture Urine, clean voided, Urinalysis, microscopic only Social History Tobacco Use Types Packs/Day Years [...] often do you attend chur ch or zoroastrianism services? More than 4 times per year [...] time in the past 12 m [facility], were you homeless or living in a correction (including now)? No 07/05/2024 Social Connection and Isolation Panel Answer Date Recorded Frequency of Communication with Friends and Fami ly Not on file 02/21/2025 Frequency of Social Gatherings with Friends and Family Not on file 02/21/2025 Attends Yazidi Services Not on file 02/21 Active Member [...] were you homeless or living in a correction (including now)? No 02/21/2025 [facility] Utilities Answer Date Recorded In the past 12 months has th e electric, gas, oil, or water company threatened to shut off services in your home? No 02/21/2025 Personal Safety Answer Date Recorded Getting School Help Needed Denies 05/26 Comments No Sex and Gender Information Value Date Recorded Sex Assigned at Not on file Legal Sex Female 4:42 AM FINANCIAL AID Gender Identity Female 03/06/2022 7:30 PM CDT Sexual Orientation Straight 03/06/2022 7: 30 PM CDT Occupation Industry Job Start Date Job End Date disabled Not on file Not on file Not on file documented as of this encounter Miscellaneous Notes * Telephone Encounter - Cecy Fox RN - 02/25/2025 8:38 AM CDT Spoke with pt, she is aware of results et Gillians message. She will complete antibiotic et keep appt as planned. documented in this encounter Plan of Treatment Upcoming Encounters Date Type Department Care Team (Latest Contact Info) Description 02/25/2025 12:30 PM CDT Ancillary Procedure [facility] Scientist [address] [place] [phone] SSS (sick sinus syndrome) (HCC); Cardiac pacemaker in situ 09/07/2025 Orders Only [facility] [address] [place] [phone] Scanning, Provider documented as of this encounter Goals Goal Patient Goal Type Associated Problems Recent Progress Patient-Stated? Author ZAC General Goal - Patient schedules and keeps appointments with all recommended providers ACO Care Management On track(09/08/ 2025 3:50 PM CDT) Tabby Owens RN Note: [...] take, when to call CM or provider. [facility] Chronic Pain Care Plan Chronic Care [...] on stairs Contact your local community or [facility] for information on exercise, fall prevention programs, or options for improving home safety. documented as of this encounter Visit Diagnoses Not on filedocumented in this encounter Care Teams Special Education Instructor Relationship Specialty Start Date End Date Anila Patino MD PCP - General 09/13/16 Salomon Medrano MD [address] [place] [address] Rheumatology 01/02/17 Rosalinda Looney MD [address] [place] [address] Psychiatry 01/02/17 Lit Singer MD [address] [place] [address] Radiation Oncology 01/02/17 Johan Marti MD [address] [facility] [address] [place] [address] Neurosurgery 01/02/17 Tino Still MD [address] [place] [address] Surgeon Orthopedic Surgery 09/19/17 Matt Richardson DO [address] [place] [address] [address] [place] [address] Consulting Physician Gastroenterology 12/10/19 Yasmine Yanes MD [address] [place] [address] [address] [place] [address] Consulting Physician Cardiology 07/23/21 Hero Jackman MD [address] [facility] NEUROLOGY [facility] [address] [place] [address] Consulting Physician Sleep Medicine 07/22/23 Ronal Jackson MD [address] [place] [address] Consulting Physician Pulmonary Disease 02/19/24 Kristen Perez MD [address] [place] [address] Anesthesiologist Pain Management 02/19/24 Ryan Sanders MD [address] [place] [address] Consulting Physician Urology 05/04/22 Geovanna Alvarenga DPM [address] [place] [address] Consulting Physician Foot and Ankle Surg 05/04/24 Ariadne Shook NP [address] [place] [address] Nurse Practitioner Neurology 06/01/24 Tabby Light RN [address] [place] [address] [address] [place] [address] Gang Ripsaw Operator 07/05/24 Junior Tobin MD [address] [place] [phone] Consulting Physician Urology 07/21/24 documented as of this encounter
--- OUTSIDE RECORDS SUMMARY | 2025-02-25 11:19 | XMS_ITS | Encounter Summary ---
Author Organization [facility] Health Address [address] [place] [address] Care Team Providers Care Finisher Wallboard And Plasterboard Name Role Phone Salomon Medrano MD Unavailable Unavailable Chandler Trejo MD Unavailable Cinthya Patino MD Primary Care Provider [phone] Encounter Details Date Type Department Care Team (Late st Contact Info) Description 03/24/2014 [facility] Outpatient Visit EXTERNAL NON-[facility] DEPT Salomon Medrano MD Social History Tobacco Use Types Packs/Day Years Used Date Smoking Tobacco: Never Smokeless Tobacco: Never Alcohol Use Standard Drinks/Week Comments Yes 0 (1 standard drink = 0.6 oz pur e alcohol) occ Comments No Sex and Gender Information Value Date Recorded Sex Assigned at Not on file Legal Sex Female 4:21 AM INSIDE SALES COORDINATOR Gender Identity Not on file Sexual Orientation Not on file 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
--- OUTSIDE RECORDS SUMMARY | 2025-02-25 11:19 | XMS_ITS | Encounter Summary ---
Author Organization [facility] Address [address] [place] [address] Phone Care Team Providers Care Plant Equipment Engineer Name Role Phone Anila Patino MD Primary Care Provider [phone] Salomon Medrano MD Unavailable [phone] Rosalinda Looney MD Unavailable Barrington Yanez MD Unavailable Shaquille Blanco MD Unavailable Onesimo Magaña MD Unavailable [phone] Lit Singer MD Unavailable Johan Marti MD Unavailable Tino Still MD Unavailable [phone] Matthias Christianson MD Unavailable Matt Richardson DO Unavailable [phone] Pema Gill MD Unavailable [phone] Jus Patel MD Unavailable Haja Luciano MD Unavailable Yasmine Yanes MD Unavailable +[phone] Yasmine Yanes MD Unavailable +[phone] Samantha Mir RN Unavailable Unavailable Tabby Mcclendon MD Unavailable [phone] Haja Page MD PhD Unavailable + Pema Gill MD Unavailable [phone] Chandler Trejo MD Unavailable +[phone] Johan Marti MD Unavailable +[phone] Ariadne Shook INDUSTRIAL SOCIOLOGIST Unavailable +[phone] Pema Gill MD Unavailable [phone] Hero Jackman MD Unavailable Ronal Jackson MD Unavailable Kristen Perez MD Unavailable [phone] Ryan Sanders MD Unavailable Geovanna AlvarengaM Unavailable +[phone] Ariadne Shook INDUSTRIAL SOCIOLOGIST Unavailable [phone] Tabby Light RN Unavailable +[phone] Junior Tobin MD Unavailable Encounter Details Date Type Department Care Team (Late st Contact Info) Description 01/04/2020 Orders Only [facility] [address] [place] [address] Scanning, Provider Social [...] on file Legal Sex Female 4:42 AM RUST PROOFER Gender Identity Female 03/06/2022 7:30 PM CDT Sexual Orientation Straight 03/06/2022 7: 30 PM CDT Occupation Industry Job Start Date Job End Date disabled Not on file Not on file Not on file documented as of this encounter Plan of Treatment Upcoming Encounters Date Type Department Care Team (Latest Contact Info) Description 02/25/2025 12:30 PM CDT Ancillary Procedure [place] Manager Of Planning [address] [address] SSS (sick sinus syndrome) (HCC); Cardiac pacemaker in situ 09/07/2025 Orders Only [facility] [address] [place] [address] Scanning, Provider documented as of [...] COVID: Suspected 08/04/2020 08/04/2020 08/04/2020 2:35 PM RUST PROOFER COVID: Suspected 10/05/2020 10/05/2020 10/05/2020 1:07 PM CDT COVID: Suspected 12/16/2020 12/16/2020 12/16/2020 3:40 PM CDT COVID: Suspected 03/15/2021 03/15/2021 03/15/2021 8:52 AM CDT COVID: Suspected 08/15/2021 08/15/2021 08/16/2021 3:05 AM RUST PROOFER COVID: Suspected 05/20/2022 05/20/2022 05/20/2022 2:35 PM RUST PROOFER COVID19 05/20/2022 05/20/2022 05/30/2022 3:05 AM RUST PROOFER COVID: Recovered Comment:Added based on recent COVID infection. 05/30/2022 05/30/2022 08/28/2022 3:05 AM C DT COVID: Suspected 01/13/2023 01/14/2023 01/14/2023 3:05 AM CDT COVID: Suspected 05/02/2023 05/02/2023 05/02/2023 5:51 PM RUST PROOFER COVID: Suspected 10/10/2023 10/10/2023 10/10/2023 4:01 PM CDT COVID: Suspected 12/06/2024 12/06/2024 12/06/2024 12:57 PM CDT documented as of this encounter Care Teams Plant Equipment Engineer Relationship Specialty Start Date End Date Anila Patino MD PCP - General 09/13/16 Salomon Medrano MD [address] [facility] [address] [place] [address] Rheumatology 01/02/17 Rosalinda Looney MD [address] [facility] [address] [place] [address] Psychiatry 01/02/17 Barrington Yanez MD [address] [facility] [address] [place] [address] Pulmonary Disease 01/02/17 01/20/20 [place] [address] [address] [address] [address] Surgeon Orthopedic Surgery 01/02/17 01/27/22 [place] [address] [address] [address] [address] Otolaryngology 01/02/17 01/20/20 [place] [address] [address] [address] [address] Radiation Oncology 01/02/17 [place] [address] [facility] [address] [place] [address] Neurosurgery 01/02/17 Tino Still MD [address] [place] [address] [address] [facility] [facility] [address] [place] [address] Surgeon Orthopedic Surgery 09/19/17 [place] [address] [facility] [address] [place] [address] Referring Physician Urology 09/19/17 01/20/20 [place] [address] [facility] [address] [place] [address] Consulting Physician Gastroenterology 12/10/19 Pema Gill MD [address] [place] [address] Fellow Pulmonary Disease 01/21/20 02/18/24 Jus Patel MD [address] [place] [address] Consulting Physician Urology 01/21/20 02/05/23 Haja Luciano MD [address] [place] [address] Consulting Physician Cardiovascular Disease 12/21/20 Yasmine Yanes MD [address] [place] [address] Consulting Physician Cardiology 07/23/21 Yasmine Yanes MD [address] [place] [address] Consulting Physician Cardiology 07/23/21 01/27/22 Samantha Mir, CARINA Registered Nurse Pulmonary Disease 01/10/22 02/18/24 Tabby Mcclendon MD [address] [place] [address] Adjunct Sociology Professor Obstetrics and Gynecology 01/28/22 07/30/22 Haja Page MD PhD [address] [place] [address] Consulting Physician Neurology 05/04/22 05/03/24 Pema Gill MD [address] [place] [address] Fellow Pulmonary Disease 06/21/22 07/30/22 Chandler Trejo MD [address] [facility] [place] [address] Consulting Physician Gastroenterology 07/31/22 02/18/24 Johan Marti MD [address] [place] [address] [place] [address] Referring Physician Neurosurgery 02/06/23 05/03/24 Ariadne Shook, INDUSTRIAL SOCIOLOGIST [address] [place] [address] Nurse Practitioner Neurology 07/22/23 05/03/24 Pema Gill MD [address] [place] [address] Fellow Pulmonary Disease 07/22/23 07/22/23 Hero Jackman MD [address] [facility] SLEEP [facility] [address] [place] [address] Consulting Physician Sleep Medicine 07/22/23 Ronal Jackson MD [address] [place] [address] Consulting Physician Pulmonary Disease 02/19/24 Kristen Perez MD [address] [place] [address] Anesthesiologist Pain Management 02/19/24 Ryan Sanders MD [address] [id number] Consulting Physician Urology 05/04/22 Geovanna Alvarenga DPM [address] [place] [address] Consulting Physician Foot and Ankle Surg 05/04/24 Ariadne Shook NP [address] [place] [address] Nurse Practitioner Neurology 06/01/24 Tabby Light RN [address] [place] [address] [address] [place] [address] Retanner 07/05/24 Junior Tobin MD [address] [address] Consulting Physician Urology 07/21/24 documented as of this encounter
--- OUTSIDE RECORDS SUMMARY | 2025-02-25 11:20 | XMS_ITS | Encounter Summary ---
Author Organization [facility] Address [address] [place] [address] Phone Care Team Providers Care Horse Buyer Name Role Phone Anila Patino MD Primary Care Provider [phone] Salomon Medrano MD Unavailable [phone] Rosalinda Looney MD Unavailable Barrington Yanez MD Unavailable Shaquille Blanco MD Unavailable Onesimo Magaña MD Unavailable [phone] Lit Singer MD Unavailable Johan Marti MD Unavailable Tino Still MD Unavailable Matthias Christianson MD Unavailable Matt Richardson DO Unavailable [phone] Pema Gill MD Unavailable [phone] Jus Patel MD Unavailable Haja Luciano MD Unavailable [phone] Yasmine Yanes MD Unavailable [phone] Yasmine Yanes MD Unavailable [phone] Samantha Mir RN Unavailable Unavailable Tabby Mcclendon MD Unavailable Haja Page MD PhD Unavailable + Pema Gill MD Unavailable [phone] Chandler Trejo MD Unavailable [phone] Johan Marti MD Unavailable [phone] BouchraAriadne Ricarda PHOTO LAB MANAGER Unavailable +[phone] Pema Gill MD Unavailable [phone] Hero Jackman MD Unavailable Ronal Jackson MD Unavailable Kristen Perez MD Unavailable [phone] Ryan Sanders MD Unavailable Geovanna AlvarengaM Unavailable [phone] BouchraAriadne Ricarda PHOTO LAB MANAGER Unavailable [phone] Tabby Light RN Unavailable [phone] Junior Tobin MD Unavailable Encounter Details Date Type Department Care Team (Late st Contact Info) Description 11/07/2017 Orders Only [facility] Provider, MD Anastacio [address] [place] [address] Social History Tobacco Use Types Packs/Day Years Used Date Smoking Tobacco: Never Smokeless Tobacco: Never Alcohol Use Standard Drinks/Week Comments No 0 (1 standard drink = 0.6 oz pure alcohol) occassional mixed drink for special occassions Comments No Sex and Gender Information Value Date Recorded Sex Assigned at Not on file Legal Sex Female 4:42 AM CONSTRUCTION EQUIPMENT TECHNICIAN Gender Identity Female 03/06/2022 7:30 PM CDT Sexual Orientation Straight 03/06/2022 7: 30 PM CDT documented as of this encounter Plan of Treatment Upcoming Encounters Date Type Department Care Team (Latest Contact Info) Description 02/25/2025 12:30 PM CDT Ancillary Procedure [place] Disk Sharpener [address] [facility] [address] [place] [address] SSS (sick sinus syndrome) (HCC); Cardiac pacemaker in situ 09/07/2025 Orders Only [facility] [address] [place] [address] Scanning, Provider documented as of this encounter Procedures Procedure Name Priority Date/Time Associated Diagnosis Comments DISCHARGE LABORATORY CUMULATIVE REPORT 11/07/2017 12:00 AM CDT documented in this encounter Results * DISCHARGE LABORATORY CUMULATIVE REPORT (11/07/2017 12:00 AM CDT) Narrative 11/07/2017 12:00 AM CDT Ordered by an unspecified provider. Historical Provider LAB BLOOD ORDERABLES Lorelei l Result documented in this encounter Visit Diagnoses Not on filedocumented in this encounter Additional Health Concerns Infection Onset Date Last Indicated Resolved Time COVID: Suspected 08/04/2020 08/04/2020 08/04/2020 2:35 PM CONSTRUCTION EQUIPMENT TECHNICIAN COVID: Suspected 10/05/2020 10/05/2020 10/05/2020 1:07 PM CDT COVID: Suspected 12/16/2020 12/16/2020 12/16/2020 3:40 PM CDT COVID: Suspected 03/15/2021 03/15/2021 03/15/2021 8:52 AM CDT COVID: Suspected 08/15/2021 08/15/2021 08/16/2021 3:05 AM CONSTRUCTION EQUIPMENT TECHNICIAN COVID: Suspected 05/20/2022 05/20/2022 05/20/2022 2:35 PM CONSTRUCTION EQUIPMENT TECHNICIAN COVID19 05/20/2022 05/20/2022 05/30/2022 3:05 AM CONSTRUCTION EQUIPMENT TECHNICIAN COVID: Recovered Comment:Added based on recent COVID infection. 05/30/2022 05/30/2022 08/28/2022 3:05 AM C DT COVID: Suspected 01/13/2023 01/14/2023 01/14/2023 3:05 AM CDT COVID: Suspected 05/02/2023 05/02/2023 05/02/2023 5:51 PM CONSTRUCTION EQUIPMENT TECHNICIAN COVID: Suspected 10/10/2023 10/10/2023 10/10/2023 4:01 PM CDT COVID: Suspected 12/06/2024 12/06/2024 12/06/2024 12:57 PM CDT documented as of this encounter Care Teams Horse Buyer Relationship Specialty Start Date End Date Anila Patino MD PCP - General 09/13/16 Salomon Medrano MD [address] [facility] [facility] [address] [place] [address] Rheumatology 01/02/17 Rosalinda Looney MD [address] [facility] [facility] [address] [place] [address] Psychiatry 01/02/17 Barrington Yanez MD [address] [facility] [facility] [address] [place] [address] Pulmonary Disease 01/02/17 01/20/20 [place] [address] [address] [facility] [address] [place] [address] Surgeon Orthopedic Surgery 01/02/17 01/27/22 [place] [address] [facility] [address] [place] [address] Otolaryngology 01/02/17 01/20/20 [place] [address] [facility] [address] [place] [address] Radiation Oncology 01/02/17 [place] [address] [facility] [address] [place] [address] Neurosurgery 01/02/17 Tino Still MD [address] [place] [address] [address] TOR[address] [facility] [address] [place] [address] Surgeon Orthopedic Surgery 09/19/17 [place] [address] [facility] [address] [place] [address] Referring Physician Urology 09/19/17 01/20/20 [place] [address] [facility] [address] [place] [address] Consulting Physician Gastroenterology 12/10/19 Pema Gill MD [address] [place] [address] Fellow Pulmonary Disease 01/21/20 02/18/24 Jus Patel MD [address] [place] [address] Consulting Physician Urology 01/21/20 02/05/23 Haja Luciano MD [address] [place] [address] Consulting Physician Cardiovascular Disease 12/21/20 Yasmine Yanes MD [address] [place] [address] Consulting Physician Cardiology 07/23/21 Yasmine Yanes MD [address] [place] [address] Consulting Physician Cardiology 07/23/21 01/27/22 Samantha Mir, RN Registered Nurse Pulmonary Disease 01/10/22 02/18/24 Tabby Mcclendon MD [address] [place] [address] Clinical Support Specialist Obstetrics and Gynecology 01/28/22 07/30/22 Haja Page MD PhD [address] [place] [address] Consulting Physician Neurology 05/04/22 05/03/24 Pema Gill MD [address] [place] [address] Fellow Pulmonary Disease 06/21/22 07/30/22 Chandler Trejo MD [address] [place] [address] [place] [address] Consulting Physician Gastroenterology 07/31/22 02/18/24 Johan Marti MD [address] [place] [address] [place] [address] Referring Physician Neurosurgery 02/06/23 05/03/24 Ariadne Shook, ROSITA [address] [place] [address] Nurse Practitioner Neurology 07/22/23 05/03/24 Pema Gill MD [address] [place] [address] Fellow Pulmonary Disease 07/22/23 07/22/23 Hero Jackman MD [address] [facility] SLEEP [facility] [address] [place] [address] Consulting Physician Sleep Medicine 07/22/23 Ronal Jackson MD [address] [place] [address] Consulting Physician Pulmonary Disease 02/19/24 Kristen Perez MD [address] [place] [address] Anesthesiologist Pain Management 02/19/24 Ryan Sanders MD [address] [address] Consulting Physician Urology 05/04/22 Geovanna Alvarenga DPM [address] [place] [address] Consulting Physician Foot and Ankle Surg 05/04/24 Ariadne Shook NP [address] [place] [address] Nurse Practitioner Neurology 06/01/24 Tabby Light RN [address] [place] [address] [address] [place] [address] Lunchroom Attendant 07/05/24 Junior Tobin MD [address] [address] Consulting Physician Urology 07/21/24 documented as of this encounter
--- OUTSIDE RECORDS SUMMARY | 2025-02-25 11:20 | XMS_ITS | Encounter Summary ---
Author Organization [facility] Address [address] [place] [address] Phone Care Team Providers Care Airport Driver Name Role Phone Anila Patino MD Primary Care Provider [phone] Salomon Medrano MD Unavailable [phone] Rosalinda Looney MD Unavailable Barrington Yanez MD Unavailable Shaquille Blanco MD Unavailable Onesimo Magaña MD Unavailable [phone] Lit Singer MD Unavailable [phone] Johan Marti MD Unavailable Tino Still MD Unavailable Matthias Christianson MD Unavailable Matt Richardson DO Unavailable [phone] Pema Gill MD Unavailable [phone] Jus Patel MD Unavailable Haja Luciano MD Unavailable [phone] Yasmine Yanes MD Unavailable [phone] Yasmine Yanes MD Unavailable +[phone] Samantha Mir RN Unavailable Unavailable Tabby Mcclendon MD Unavailable Haja Page MD PhD Unavailable + Pema Gill MD Unavailable [phone] Chandler Trejo MD Unavailable [phone] Johan Marti MD Unavailable [phone] BouchraAriadne Ricarda SENIOR BRANCH MANAGER Unavailable +[phone] Pema Gill MD Unavailable [phone] Hero Jackman MD Unavailable Ronal Jackson MD Unavailable Kristen Perez MD Unavailable [phone] Ryan Sanders MD Unavailable Geovanna AlvarengaM Unavailable [phone] BouchraAriadne Ricarda SENIOR BRANCH MANAGER Unavailable [phone] Tabby Light RN Unavailable [phone] Junior Tobin MD Unavailable Encounter Details Date Type Department Care Team (Late st Contact Info) Description 09/19/[address] [facility] Provider, MD Anastacio [address] [place] [address] Social History Tobacco Use Types Packs/Day Years Used Date Smoking Tobacco: Never Smokeless Tobacco: Never Alcohol Use Standard Drinks/Week Comments No 0 (1 standard drink = 0.6 oz pure alcohol) occassional mixed drink for special occassions Comments No Sex and Gender Information Value Date Recorded Sex Assigned at Not on file Legal Sex Female 4:42 AM LANGUAGE ASSISTANT Gender Identity Female 03/06/2022 7:30 PM CDT Sexual Orientation Straight 03/06/2022 7: 30 PM CDT documented as of this encounter Plan of Treatment Upcoming Encounters Date Type Department Care Team (Latest Contact Info) Description 02/25/2025 12:30 PM CDT Ancillary Procedure [place] [facility] [address] [facility] [address] [place] [address] SSS (sick sinus syndrome) (HCC); Cardiac pacemaker in situ 09/07/2025 Orders Only [facility] [address] [place] [address] Scanning, Provider documented as of [...] COVID: Suspected 08/04/2020 08/04/2020 08/04/2020 2:35 PM LANGUAGE ASSISTANT COVID: Suspected 10/05/2020 10/05/2020 10/05/2020 1:07 PM CDT COVID: Suspected 12/16/2020 12/16/2020 12/16/2020 3:40 PM CDT COVID: Suspected 03/15/2021 03/15/2021 03/15/2021 8:52 AM CDT COVID: Suspected 08/15/2021 08/15/2021 08/16/2021 3:05 AM LANGUAGE ASSISTANT COVID: Suspected 05/20/2022 05/20/2022 05/20/2022 2:35 PM LANGUAGE ASSISTANT COVID19 05/20/2022 05/20/2022 05/30/2022 3:05 AM LANGUAGE ASSISTANT COVID: Recovered Comment:Added based on recent COVID infection. 05/30/2022 05/30/2022 08/28/2022 3:05 AM C DT COVID: Suspected 01/13/2023 01/14/2023 01/14/2023 3:05 AM CDT COVID: Suspected 05/02/2023 05/02/2023 05/02/2023 5:51 PM LANGUAGE ASSISTANT COVID: Suspected 10/10/2023 10/10/2023 10/10/2023 4:01 PM CDT COVID: Suspected 12/06/2024 12/06/2024 12/06/2024 12:57 PM CDT documented as of this encounter Care Teams Airport Driver Relationship Specialty Start Date End Date Anila Patino MD PCP - General 09/13/16 Salomon Medrano MD [address] [facility] [address] [place] [address] Rheumatology 01/02/17 Rosalinda Looney MD [address] [facility] [facility] [address] [place] [address] Psychiatry 01/02/17 Barrington Yanez MD [address] [facility] [facility] [address] [place] [address] Pulmonary Disease 01/02/17 01/20/20 [place] [address] [address] [facility] [address] [place] [address] Surgeon Orthopedic Surgery 01/02/17 01/27/22 [place] [address] [address] [facility] [address] [place] [address] Otolaryngology 01/02/17 01/20/20 [place] [address] [address] [facility] [address] [place] [address] Radiation Oncology 01/02/17 [place] [address] [facility] [address] [place] [address] Neurosurgery 01/02/17 Tino Still MD [address] [place] [address] [address] [facility] [address] [place] [address] Surgeon Orthopedic Surgery 09/19/17 [place] [address] [facility] [address] [place] [address] Referring Physician Urology 09/19/17 01/20/20 [place] [address] [facility] [address] [place] [address] Consulting Physician Gastroenterology 12/10/19 Pema Gill MD [address] [place] [address] Fellow Pulmonary Disease 01/21/20 02/18/24 Jus Patel MD [address] [place] [address] Consulting Physician Urology 01/21/20 02/05/23 Haja Luciano MD [address] [place] [address] Consulting Physician Cardiovascular Disease 12/21/20 Yasmine Yanes MD [address] [place] [address] Consulting Physician Cardiology 07/23/21 Yasmine Yanes MD [address] [place] [address] Consulting Physician Cardiology 07/23/21 01/27/22 Samantha Mir, RN Registered Nurse Pulmonary Disease 01/10/22 02/18/24 Tabby Mcclendon MD [address] [place] [address] Marine Machinist Obstetrics and Gynecology 01/28/22 07/30/22 Haja Page MD PhD [address] [place] [address] Consulting Physician Neurology 05/04/22 05/03/24 Pema Gill MD [address] [place] [address] Fellow Pulmonary Disease 06/21/22 07/30/22 Chandler Trejo MD [address] [place] [address] [address] [place] [address] Consulting Physician Gastroenterology 07/31/22 02/18/24 Johan Marti MD [address] [place] [address] [place] [address] Referring Physician Neurosurgery 02/06/23 05/03/24 Ariadne Shook, ROSITA [address] [place] [address] Nurse Practitioner Neurology 07/22/23 05/03/24 Pema Gill MD [address] [place] [address] Fellow Pulmonary Disease 07/22/23 07/22/23 Hero Jackman MD [address] [facility] [address] [place] [address] Consulting Physician Sleep Medicine 07/22/23 Ronal Jackson MD [address] [place] [address] Consulting Physician Pulmonary Disease 02/19/24 Kristen Perez MD [address] [place] [address] Anesthesiologist Pain Management 02/19/24 Ryan Sanders MD [address] [address] Consulting Physician Urology 05/04/22 Geovanna Alvarenga DPM [address] [place] [address] Consulting Physician Foot and Ankle Surg 05/04/24 Ariadne Shook NP [address] [place] [address] Nurse Practitioner Neurology 06/01/24 Tabby Light RN [address] [place] [address] [address] [place] [address] Suction Plate Carrier Cleaner 07/05/24 Junior Tobin MD [address] [address] Consulting Physician Urology 07/21/24 documented as of this encounter
--- OUTSIDE RECORDS SUMMARY | 2025-02-25 11:20 | XMS_ITS | Encounter Summary ---
Author Organization [facility] Address [address] [place] [address] Phone Care Team Providers Care Coupler Name Role Phone Anila Patino MD Primary Care Provider [phone] Salomon Medrano MD Unavailable [phone] Rosalinda Looney MD Unavailable [phone] Barrington Yanez MD Unavailable Shaquille Blanco MD Unavailable Onesimo Magaña MD Unavailable Lit Singer MD Unavailable [phone] Johan Marti MD Unavailable Tino Still MD Unavailable [phone] Matthias Christianson MD Unavailable Matt Richardson DO Unavailable [phone] Pema Gill MD Unavailable [phone] Jus Patel MD Unavailable [phone] Haja Luciano MD Unavailable Yasmine Yanes MD Unavailable Yasmine Yanes MD Unavailable [phone] Samantha Mir RN Unavailable Unavailable Tabby Mcclendon MD Unavailable Haja Page MD PhD Unavailable + Pema Gill MD Unavailable [phone] Chandler Trejo MD Unavailable [phone] Johan Marti MD Unavailable +[phone] Ariadne Shook CHARGE AIDE Unavailable [phone] Pema Gill MD Unavailable [phone] Hero Jackman MD Unavailable Ronal Jackson MD Unavailable Kristen Perez MD Unavailable [phone] Ryan Sanders MD Unavailable Geovanna AlvarengaM Unavailable +[phone] Ariadne Shook CHARGE AIDE Unavailable +[phone] Tabby Light RN Unavailable +[phone] Junior Tobin MD Unavailable Encounter Details Date Type Department Care Team (Late st Contact Info) Description 03/25/2017 Orders Only [facility] [address] [place] [id number] Anila Patino MD [address] [place] [address] Social History Tobacco Use Types Packs/Day Years Used Date Smoking Tobacco: Never Smokeless Tobacco: Never Alcohol Use Standard Drinks/Week Comments No 0 (1 standard drink = 0.6 oz pure alcohol) occassional mixed drink for special occassions Comments No Sex and Gender Information Value Date Recorded Sex Assigned at Not on file Legal Sex Female 4:42 AM SWITCHBOARD OPERATOR SUPERVISOR Gender Identity Female 03/06/2022 7:30 PM CDT Sexual Orientation Straight 03/06/2022 7: 30 PM CDT documented as of this encounter Plan of Treatment Upcoming Encounters Date Type Department Care Team (Latest Contact Info) Description 02/25/2025 12:30 PM CDT Ancillary Procedure Conrad Molding Associate [address] [facility] [address] [place] [address] SSS (sick sinus syndrome) (HCC); Cardiac pacemaker in situ 09/07/2025 Orders Only [facility] [address] [place] [address] Scanning, Provider documented as of [...] COVID: Suspected 08/04/2020 08/04/2020 08/04/2020 2:35 PM SWITCHBOARD OPERATOR SUPERVISOR COVID: Suspected 10/05/2020 10/05/2020 10/05/2020 1:07 PM CDT COVID: Suspected 12/16/2020 12/16/2020 12/16/2020 3:40 PM CDT COVID: Suspected 03/15/2021 03/15/2021 03/15/2021 8:52 AM CDT COVID: Suspected 08/15/2021 08/15/2021 08/16/2021 3:05 AM SWITCHBOARD OPERATOR SUPERVISOR COVID: Suspected 05/20/2022 05/20/2022 05/20/2022 2:35 PM SWITCHBOARD OPERATOR SUPERVISOR COVID19 05/20/2022 05/20/2022 05/30/2022 3:05 AM SWITCHBOARD OPERATOR SUPERVISOR COVID: Recovered Comment:Added based on recent COVID infection. 05/30/2022 05/30/2022 08/28/2022 3:05 AM C DT COVID: Suspected 01/13/2023 01/14/2023 01/14/2023 3:05 AM CDT COVID: Suspected 05/02/2023 05/02/2023 05/02/2023 5:51 PM SWITCHBOARD OPERATOR SUPERVISOR COVID: Suspected 10/10/2023 10/10/2023 10/10/2023 4:01 PM CDT COVID: Suspected 12/06/2024 12/06/2024 12/06/2024 12:57 PM CDT documented as of this encounter Care Teams Coupler Relationship Specialty Start Date End Date Anila Patino MD PCP - General 09/13/16 Salomon Medrano MD [address] [address] [place] [address] Rheumatology 01/02/17 Rosalinda Looney MD [address] [facility] [address] [place] [address] Psychiatry 01/02/17 Barrington Yanez MD [address] [facility] [address] [place] [address] Pulmonary Disease 01/02/17 01/20/20 [place] [address] [address] Surgeon Orthopedic Surgery 01/02/17 01/27/22 [place] [address] [address] Otolaryngology 01/02/17 01/20/20 [place] [address] [address] Radiation Oncology 01/02/17 [place] [address] [facility] [address] [place] [address] Neurosurgery 01/02/17 Tino Still MD [address] [place] [address] DR TORRES B [facility] [address] [place] [address] Surgeon Orthopedic Surgery 09/19/17 [place] [address] [facility] [address] [place] [address] Referring Physician Urology 09/19/17 01/20/20 [place] [address] [facility] [address] [place] [address] Consulting Physician Gastroenterology 12/10/19 Pema Gill MD [address] [place] [address] Fellow Pulmonary Disease 01/21/20 02/18/24 Jus Patel MD [address] [place] [address] Consulting Physician Urology 01/21/20 02/05/23 Haja Luciano MD [address] [place] [address] Consulting Physician Cardiovascular Disease 12/21/20 Yasmine Yanes MD [address] [place] [address] Consulting Physician Cardiology 07/23/21 Yasmine Yanes MD [address] [place] [address] Consulting Physician Cardiology 07/23/21 01/27/22 Samantha Mir, RN Registered Nurse Pulmonary Disease 01/10/22 02/18/24 Tabby Mcclendon MD [address] [place] [address] Solid Waste Collection Worker Obstetrics and Gynecology 01/28/22 07/30/22 Haja Page MD PhD [address] [place] [address] Consulting Physician Neurology 05/04/22 05/03/24 Pema Gill MD [address] [place] [address] Fellow Pulmonary Disease 06/21/22 07/30/22 Chandler Trejo MD [address] [facility] [place] [address] Consulting Physician Gastroenterology 07/31/22 02/18/24 Johan Marti MD [address] [facility] [place] [address] Referring Physician Neurosurgery 02/06/23 05/03/24 Ariadne Shook, ROSITA [address] [place] [address] Nurse Practitioner Neurology 07/22/23 05/03/24 Pema Gill MD [address] [place] [address] Fellow Pulmonary Disease 07/22/23 07/22/23 Hero Jackman MD [address] [facility] SLEEP [facility] [address] [place] [address] Consulting Physician Sleep Medicine 07/22/23 Ronal Jackson MD [address] [place] [address] Consulting Physician Pulmonary Disease 02/19/24 Kristen Perez MD [address] [place] [address] Anesthesiologist Pain Management 02/19/24 Ryan Sanders MD [address] [id number] Consulting Physician Urology 05/04/22 Geovanna Alvarenga DPM [address] [place] [address] Consulting Physician Foot and Ankle Surg 05/04/24 Ariadne Shook NP [address] [place] [address] Nurse Practitioner Neurology 06/01/24 Tabby Light RN [address] [place] [address] [address] [place] [address] Rehab Aide 07/05/24 Junior Tobin MD 2 [facility] [address] [place] [address] Consulting Physician Urology 07/21/24 documented as of this encounter
--- OUTSIDE RECORDS SUMMARY | 2025-02-25 11:20 | XMS_ITS | Encounter Summary ---
Author Organization [facility] Address [address] [place] [address] Phone Care Team Providers Care Managing Cognitive Engineer Name Role Phone Anila Patino MD Primary Care Provider [phone] Salomon Medrano MD Unavailable [phone] Rosalinda Looney MD Unavailable [phone] Barrington Yanez MD Unavailable Shaquille Blanco MD Unavailable Onesimo Magaña MD Unavailable Lit Singer MD Unavailable Johan Marti MD Unavailable Tino Still MD Unavailable Matthias Christianson MD Unavailable Matt Richardson DO Unavailable [phone] Pema Gill MD Unavailable [phone] Jus Patel MD Unavailable [phone] Haja Luciano MD Unavailable [phone] Yasmine Yanes MD Unavailable Yasmine Yanes MD Unavailable [phone] Samantha Mir RN Unavailable Unavailable Tabby Mcclendon MD Unavailable Haja Page MD PhD Unavailable + Pema Gill MD Unavailable [phone] Chandler Trejo MD Unavailable [phone] Johan Marti MD Unavailable [phone] Ariadne Shook HEARING IMPAIRED ITINERANT TEACHER Unavailable +[phone] Pema Gill MD Unavailable [phone] Hero Jackman MD Unavailable Ronal Jackson MD Unavailable Kristen Perez MD Unavailable [phone] Ryan Sanders MD Unavailable Geovanna AlvarengaM Unavailable [phone] Ariadne Shook HEARING IMPAIRED ITINERANT TEACHER Unavailable [phone] Tabby Light RN Unavailable [phone] Junior Tobin MD Unavailable Encounter Details Date Type Department Care Team (Late st Contact Info) Description 01/21/2017 Orders Only [facility] [address] [place] [id number] Anila Patino MD [address] [place] [address] Mixed hyperlipidemia (Primary Dx); Urinary tract infection, [...] on file Legal Sex Female 4:42 AM CLERK TELEVISION PRODUCTION Gender Identity Female 03/06/2022 7:30 PM CDT Sexual Orientation Straight 03/06/2022 7: 30 PM CDT documented as of this encounter Plan of Treatment Upcoming Encounters Date Type Department Care Team (Latest Contact Info) Description 02/25/2025 12:30 PM CDT Ancillary Procedure [place] [employer] Maint Eng [address] [address] SSS (sick sinus syndrome) (HCC); Cardiac pacemaker in situ 09/07/2025 Orders Only [facility] [address] [place] [address] Scanning, Provider Scheduled Orders Name [...] Primary Urinary tract infection, site not specified SSS (sick sinus syndrome) (HCC) Sinoatrial node dysfunction Cardiac pacemaker in situ documented in this encounter Additional Health Concerns Infection Onset Date Last Indicated Resolved Time COVID: Suspected 08/04/2020 08/04/2020 08/04/2020 2:35 PM CLERK TELEVISION PRODUCTION COVID: Suspected 10/05/2020 10/05/2020 10/05/2020 1:07 PM CDT COVID: Suspected 12/16/2020 12/16/2020 12/16/2020 3:40 PM CDT COVID: Suspected 03/15/2021 03/15/2021 03/15/2021 8:52 AM CDT COVID: Suspected 08/15/2021 08/15/2021 08/16/2021 3:05 AM CLERK TELEVISION PRODUCTION COVID: Suspected 05/20/2022 05/20/2022 05/20/2022 2:35 PM CLERK TELEVISION PRODUCTION COVID19 05/20/2022 05/20/2022 05/30/2022 3:05 AM CLERK TELEVISION PRODUCTION COVID: Recovered Comment:Added based on recent COVID infection. 05/30/2022 05/30/2022 08/28/2022 3:05 AM C DT COVID: Suspected 01/13/2023 01/14/2023 01/14/2023 3:05 AM CDT COVID: Suspected 05/02/2023 05/02/2023 05/02/2023 5:51 PM CLERK TELEVISION PRODUCTION COVID: Suspected 10/10/2023 10/10/2023 10/10/2023 4:01 PM CDT COVID: Suspected 12/06/2024 12/06/2024 12/06/2024 12:57 PM CDT documented as of this encounter Care Teams Managing Cognitive Engineer Relationship Specialty Start Date End Date Anila Patino MD PCP - General 09/13/16 Salomon Medrano MD [address] [facility] [address] [place] [address] Rheumatology 01/02/17 Rosalinda Looney MD [address] [facility] [facility] [address] [place] [address] Psychiatry 01/02/17 Barrington Yanez MD [address] [facility] [address] [place] [address] Pulmonary Disease 01/02/17 01/20/20 [place] [address] [address] Surgeon Orthopedic Surgery 01/02/17 01/27/22 [place] [address] [facility] [address] [place] [address] Otolaryngology 01/02/17 01/20/20 [place] [address] [facility] [address] [place] [address] Radiation Oncology 01/02/17 [place] [address] [facility] [address] [place] [address] Neurosurgery 01/02/17 Tino Still MD [address] [place] [address] DR T[address] [address] Surgeon Orthopedic Surgery 09/19/17 [place] [address] [facility] [address] [place] [address] Referring Physician Urology 09/19/17 01/20/20 [place] [address] [facility] [address] [place] [address] Consulting Physician Gastroenterology 12/10/19 Pema Gill MD [address] [place] [address] Fellow Pulmonary Disease 01/21/20 02/18/24 Jus Patel MD [address] [place] [address] Consulting Physician Urology 01/21/20 02/05/23 Haja Luciano MD [address] [place] [address] Consulting Physician Cardiovascular Disease 12/21/20 Yasmine Yanes MD [address] [place] [address] Consulting Physician Cardiology 07/23/21 Yasmine Yanes MD [address] [place] [address] Consulting Physician Cardiology 07/23/21 01/27/22 Samantha Mir, RN Registered Nurse Pulmonary Disease 01/10/22 02/18/24 Tabby Mcclendon MD [address] [place] [address] Computer Forwarding System Markup Clerk Obstetrics and Gynecology 01/28/22 07/30/22 Haja Page MD PhD [address] [place] [address] Consulting Physician Neurology 05/04/22 05/03/24 Pema Gill MD [address] [place] [address] Fellow Pulmonary Disease 06/21/22 07/30/22 Chandler Trejo MD [address] [place] [address] [place] [address] Consulting Physician Gastroenterology 07/31/22 02/18/24 Johan Marti MD [address] [place] [address] [address] [facility] [place] [address] Referring Physician Neurosurgery 02/06/23 05/03/24 Ariadne Shook, ROSITA [address] [place] [address] Nurse Practitioner Neurology 07/22/23 05/03/24 Pema Gill MD [address] [place] [address] Fellow Pulmonary Disease 07/22/23 07/22/23 Hero Jackman MD [address] NEUROLOGY SLEEP [facility] [address] [place] [address] Consulting Physician Sleep Medicine 07/22/23 Ronal Jackson MD [address] [place] [address] Consulting Physician Pulmonary Disease 02/19/24 Kristen Perez MD [address] [place] [address] Anesthesiologist Pain Management 02/19/24 Ryan Sanders MD 2 [facility] [address] [place] [address] Consulting Physician Urology 05/04/22 Geovanna Alvarenga DPM [address] [place] [address] Consulting Physician Foot and Ankle Surg 05/04/24 Ariadne Shook, ROSITA [address] [place] [address] Nurse Practitioner Neurology 06/01/24 Tabby Light RN [address] [place] [address] [address] [place] [address] Customer Service Agent 07/05/24 Junior Tobin MD 2 [facility] [address] [place] [address] Consulting Physician Urology 07/21/24 documented as of this encounter
--- OUTSIDE RECORDS SUMMARY | 2025-02-25 11:20 | XMS_ITS | Encounter Summary ---
Author Organization [facility] Address [address] [place] [address] Phone Care Team Providers Care Tile Finisher Name Role Phone Anila Patino MD Primary Care Provider [phone] Salomon Medrano MD Unavailable [phone] Rosalinda Looney MD Unavailable Barrington Yanez MD Unavailable Shaquille Blanco MD Unavailable Onesimo Magaña MD Unavailable Lit Singer MD Unavailable Johan Marti MD Unavailable Tino Still MD Unavailable Matthias Christianson MD Unavailable Matt Richardson DO Unavailable [phone] Pema Gill MD Unavailable [phone] Jus Patel MD Unavailable Haja Luciano MD Unavailable [phone] Yasmine Yanes MD Unavailable [phone] Yasmine Yanes MD Unavailable [phone] Samantha Mir RN Unavailable Unavailable Tabby Mcclendon MD Unavailable Haja Page MD PhD Unavailable + Pema Gill MD Unavailable Chandler Trejo MD Unavailable [phone] Johan Marti MD Unavailable [phone] BouchraAriadne Ricarda CHINCHILLA FARMER Unavailable +[phone] Pema Gill MD Unavailable [phone] Hero Jackman MD Unavailable Ronal Jackson MD Unavailable Kristen Perez MD Unavailable [phone] Ryan Sanders MD Unavailable Geovanna AlvarengaM Unavailable [phone] BouchraAriadne Ricarda CHINCHILLA FARMER Unavailable [phone] Tabby Light RN Unavailable [phone] Junior Tobin MD Unavailable Encounter Details Date Type Department Care Team (Late st Contact Info) Description 06/20/2017 Orders Only [facility] Provider, MD Anastacio [address] [place] [address] Social History Tobacco Use Types Packs/Day Years Used Date Smoking Tobacco: Never Smokeless Tobacco: Never Alcohol Use Standard Drinks/Week Comments No 0 (1 standard drink = 0.6 oz pure alcohol) occassional mixed drink for special occassions Comments No Sex and Gender Information Value Date Recorded Sex Assigned at Not on file Legal Sex Female 4:42 AM DOCUMENT PREPARATION SPECIALIST Gender Identity Female 03/06/2022 7:30 PM CDT Sexual Orientation Straight 03/06/2022 7: 30 PM CDT documented as of this encounter Plan of Treatment Upcoming Encounters Date Type Department Care Team (Latest Contact Info) Description 02/25/2025 12:30 PM CDT Ancillary Procedure [place] 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 [address] [facility] [address] [place] [address] SSS (sick sinus syndrome) (HCC); Cardiac pacemaker in situ 09/07/2025 Orders Only [facility] [address] [place] [address] Scanning, Provider documented as of this encounter Procedures Procedure Name Priority Date/Time Associated Diagnosis Comments DISCHARGE LABORATORY CUMULATIVE REPORT 06/20/2017 12:00 AM DOCUMENT PREPARATION SPECIALIST documented in this encounter Results * DISCHARGE LABORATORY CUMULATIVE REPORT (06/20/2017 12:00 AM DOCUMENT PREPARATION SPECIALIST) Narrative 06/20/2017 12:00 AM DOCUMENT PREPARATION SPECIALIST Ordered by an unspecified provider. us Historical Provider LAB BLOOD ORDERABLES Lorelei l Result documented in this encounter Visit Diagnoses Not on filedocumented in this encounter Additional Health Concerns Infection Onset Date Last Indicated Resolved Time COVID: Suspected 08/04/2020 08/04/2020 08/04/2020 2:35 PM DOCUMENT PREPARATION SPECIALIST COVID: Suspected 10/05/2020 10/05/2020 10/05/2020 1:07 PM CDT COVID: Suspected 12/16/2020 12/16/2020 12/16/2020 3:40 PM CDT COVID: Suspected 03/15/2021 03/15/2021 03/15/2021 8:52 AM CDT COVID: Suspected 08/15/2021 08/15/2021 08/16/2021 3:05 AM DOCUMENT PREPARATION SPECIALIST COVID: Suspected 05/20/2022 05/20/2022 05/20/2022 2:35 PM DOCUMENT PREPARATION SPECIALIST COVID19 05/20/2022 05/20/2022 05/30/2022 3:05 AM DOCUMENT PREPARATION SPECIALIST COVID: Recovered Comment:Added based on recent COVID infection. 05/30/2022 05/30/2022 08/28/2022 3:05 AM C DT COVID: Suspected 01/13/2023 01/14/2023 01/14/2023 3:05 AM CDT COVID: Suspected 05/02/2023 05/02/2023 05/02/2023 5:51 PM DOCUMENT PREPARATION SPECIALIST COVID: Suspected 10/10/2023 10/10/2023 10/10/2023 4:01 PM CDT COVID: Suspected 12/06/2024 12/06/2024 12/06/2024 12:57 PM CDT documented as of this encounter Care Teams Tile Finisher Relationship Specialty Start Date End Date Anila Patino MD PCP - General 09/13/16 Salomon Medrano MD [address] [facility] [facility] [address] [place] [address] Rheumatology 01/02/17 Rosalinda Looney MD [address] [facility] [address] [place] [address] Psychiatry 01/02/17 Barrington Yanez MD [address] [facility] [address] [place] [address] Pulmonary Disease 01/02/17 01/20/20 [place] [address] [address] [facility] [address] [place] [address] Surgeon Orthopedic Surgery 01/02/17 01/27/22 [place] [address] [address] [facility] [address] [place] [address] Otolaryngology 01/02/17 01/20/20 [place] [address] [address] [facility] [address] [place] [address] Radiation Oncology 01/02/17 [place] [address] [facility] [address] [place] [address] Neurosurgery 01/02/17 Tino Still MD [address] [place] [address] [address] [facility] [address] [place] [address] Surgeon Orthopedic Surgery 09/19/17 [place] [address] [facility] [address] [place] [address] Referring Physician Urology 09/19/17 01/20/20 [place] [address] [facility] [address] [place] [address] Consulting Physician Gastroenterology 12/10/19 Pema Gill MD [address] [place] [address] Fellow Pulmonary Disease 01/21/20 02/18/24 Jus Patel MD [address] [place] [address] Consulting Physician Urology 01/21/20 02/05/23 Haja Luciano MD [address] [place] [address] Consulting Physician Cardiovascular Disease 12/21/20 Yasmine Yanes MD [address] [place] [address] Consulting Physician Cardiology 07/23/21 Yasmine Yanes MD [address] [place] [address] Consulting Physician Cardiology 07/23/21 01/27/22 Samantha Mir, RN Registered Nurse Pulmonary Disease 01/10/22 02/18/24 Tabby Mcclendon MD [address] [place] [address] Polysomnography Technician Obstetrics and Gynecology 01/28/22 07/30/22 Haja Page MD PhD [address] [place] [address] Consulting Physician Neurology 05/04/22 05/03/24 Pema Gill MD [address] [place] [address] Fellow Pulmonary Disease 06/21/22 07/30/22 [place] Trejo MD [address] [facility] [address] [place] [address] Consulting Physician Gastroenterology 07/31/22 02/18/24 Johan Marti MD [address] [facility] [address] [place] [address] Referring Physician Neurosurgery 02/06/23 05/03/24 Ariadne Shook, ROSITA [address] [place] [address] Nurse Practitioner Neurology 07/22/23 05/03/24 Pema Gill MD [address] [place] [address] Fellow Pulmonary Disease 07/22/23 07/22/23 Hero Jackman MD [address] [facility] SLEEP [facility], [facility] [address] [place] [address] Consulting Physician Sleep Medicine 07/22/23 Ronal Jackson MD [address] [place] [address] Consulting Physician Pulmonary Disease 02/19/24 Kristen Perez MD [address] [place] [address] Anesthesiologist Pain Management 02/19/24 Ryan Sanders MD [address] [place] [address] Consulting Physician Urology 05/04/22 Geovanna Alvarenga DPM [address] [place] [address] Consulting Physician Foot and Ankle Surg 05/04/24 Ariadne Shook NP [address] [place] [address] Nurse Practitioner Neurology 06/01/24 Tabby Light RN [address] [place] [address] 300 [place] [address] Spinneret Person 07/05/24 Junior Tobin MD [address] [place] [address] Consulting Physician Urology 07/21/24 documented as of this encounter
--- OUTSIDE RECORDS SUMMARY | 2025-02-25 11:20 | XMS_ITS | Encounter Summary ---
Author Organization [facility] Address [address] [place] [address] Phone Care Team Providers Care Oil Treater Name Role Phone Anila Patino MD Primary Care Provider [phone] Salomon Medrano MD Unavailable [phone] Rosalinda Looney MD Unavailable [phone] Barrington Yanez MD Unavailable Shaquille Blanco MD Unavailable Onesimo Magaña MD Unavailable [phone] Lit Singer MD Unavailable Johan Marti MD Unavailable Tino Still MD Unavailable Matthias Christianson MD Unavailable Matt Richardson DO Unavailable [phone] Pema Gill MD Unavailable [phone] Jus Patel MD Unavailable Haja Luciano MD Unavailable [phone] Yasmine Yanes MD Unavailable Yasmine Yanes MD Unavailable [phone] Samantha Mir RN Unavailable Unavailable Tabby Mcclendon MD Unavailable Haja Page MD PhD Unavailable + Pema Gill MD Unavailable [phone] Chandler Trejo MD Unavailable [phone] Johan Marti MD Unavailable [phone] Ariadne Shook MEDIA ANALYST Unavailable Pema Gill MD Unavailable [phone] Hero Jackman MD Unavailable Ronal Jackson MD Unavailable Kristen Perez MD Unavailable [phone] Ryan Sanders MD Unavailable Geovanna AlvarengaM Unavailable [phone] Ariadne Shook MEDIA ANALYST Unavailable [phone] Tabby Light RN Unavailable Junior Tobin MD Unavailable Encounter Details Date Type Department Care Team (Late st Contact Info) Description 04/28/2017 Orders Only [facility] [address] [place] [phone] Anila Patino MD [address] [place] [address] Spondylolysis of sacral region (Primary Dx) Social History Tobacco Use Types Packs/Day Years Used Date Smoking Tobacco: Never Smokeless Tobacco: Never Alcohol Use Standard Drinks/Week Comments No 0 (1 standard drink = 0.6 oz pure alcohol) occassional mixed drink for special occassions Comments No Sex and Gender Information Value Date Recorded Sex Assigned at Not on file Legal Sex Female 4:42 AM CONSUMER SAFETY INSPECTOR Gender Identity Female 03/06/2022 7:30 PM CDT Sexual Orientation Straight 03/06/2022 7: 30 PM CDT documented as of this encounter Plan of Treatment Upcoming Encounters Date Type Department Care Team (Latest Contact Info) Description 02/25/2025 12:30 PM CDT Ancillary Procedure 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 [id number] [phone] SSS (sick sinus syndrome) (HCC); Cardiac pacemaker in situ 09/07/2025 Orders Only [facility] [address] [place] [address] Scanning, Provider documented as of this encounter Visit Diagnoses Diagnosis Spondylolysis of sacral region- Primary SSS (sick sinus syndrome) (HCC) Sinoatrial node dysfunction Cardiac pacemaker in situ documented in this encounter Additional Health Concerns Infection Onset Date Last Indicated Resolved Time COVID: Suspected 08/04/2020 08/04/2020 08/04/2020 2:35 PM CONSUMER SAFETY INSPECTOR COVID: Suspected 10/05/2020 10/05/2020 10/05/2020 1:07 PM CDT COVID: Suspected 12/16/2020 12/16/2020 12/16/2020 3:40 PM CDT COVID: Suspected 03/15/2021 03/15/2021 03/15/2021 8:52 AM CDT COVID: Suspected 08/15/2021 08/15/2021 08/16/2021 3:05 AM CONSUMER SAFETY INSPECTOR COVID: Suspected 05/20/2022 05/20/2022 05/20/2022 2:35 PM CONSUMER SAFETY INSPECTOR COVID19 05/20/2022 05/20/2022 05/30/2022 3:05 AM CONSUMER SAFETY INSPECTOR COVID: Recovered Comment:Added based on recent COVID infection. 05/30/2022 05/30/2022 08/28/2022 3:05 AM C DT COVID: Suspected 01/13/2023 01/14/2023 01/14/2023 3:05 AM CDT COVID: Suspected 05/02/2023 05/02/2023 05/02/2023 5:51 PM CONSUMER SAFETY INSPECTOR COVID: Suspected 10/10/2023 10/10/2023 10/10/2023 4:01 PM CDT COVID: Suspected 12/06/2024 12/06/2024 12/06/2024 12:57 PM CDT documented as of this encounter Care Teams Oil Treater Relationship Specialty Start Date End Date Anila Patino MD PCP - General 09/13/16 Salomon Medrano MD [address]40 [facility] [address] [place] [address] Rheumatology 01/02/17 Rosalinda Looney MD 3440 [facility] [address] [place] [address] Psychiatry 01/02/17 Barrington Yanez MD 3440 [facility] [address] [place] [address] Pulmonary Disease 01/02/17 01/20/20 [place] [address] [address] Surgeon Orthopedic Surgery 01/02/17 01/27/22 [place] [address] [address] Otolaryngology 01/02/17 01/20/20 [place] [address] [address] Radiation Oncology 01/02/17 [place] [address] [address] Neurosurgery 01/02/17 Tino Still MD [address] [facility] [address] [address] Surgeon Orthopedic Surgery 09/19/17 [place] [address] [facility] [address] [address] Referring Physician Urology 09/19/17 01/20/20 [place] [address] [facility] [address] [address] Consulting Physician Gastroenterology 12/10/19 Pema Gill MD [address] [place] [address] Fellow Pulmonary Disease 01/21/20 02/18/24 Jus Patel MD [address] [place] [address] Consulting Physician Urology 01/21/20 02/05/23 Haja Luciano MD [address] [place] [address] Consulting Physician Cardiovascular Disease 12/21/20 Yasmine Yanes MD [address] [place] [address] Consulting Physician Cardiology 07/23/21 Yasmine Yanes MD [address] [place] [address] Consulting Physician Cardiology 07/23/21 01/27/22 Samantha Mir, RN Registered Nurse Pulmonary Disease 01/10/22 02/18/24 Tabby Mcclendon MD [address] [place] [address] Otolaryngology Nurse Obstetrics and Gynecology 01/28/22 07/30/22 Haja Page MD PhD [address] [place] [address] Consulting Physician Neurology 05/04/22 05/03/24 Pema Gill MD [address] [place] [address] Fellow Pulmonary Disease 06/21/22 07/30/22 Chandler Trejo MD [address] [facility] [address] [place] [address] Consulting Physician Gastroenterology 07/31/22 02/18/24 Johan Marti MD [address] [place] [address] [address] [place] [address] Referring Physician Neurosurgery 02/06/23 05/03/24 Ariadne Shook, ROSITA [address] [place] [address] Nurse Practitioner Neurology 07/22/23 05/03/24 Pema Gill MD [address] [place] [address] Fellow Pulmonary Disease 07/22/23 07/22/23 Hero Jackman MD [address] [facility] NEUROLOGY SLEEP [facility], [facility] [address] [place] [address] Consulting Physician Sleep Medicine 07/22/23 Ronal Jackson MD [address] [place] [address] Consulting Physician Pulmonary Disease 02/19/24 Kristen Perez MD [address] [place] [address] Anesthesiologist Pain Management 02/19/24 Ryan Sanders MD [address] [address] Consulting Physician Urology 05/04/22 Geovanna Alvarenga DPM [address] [place] [address] Consulting Physician Foot and Ankle Surg 05/04/24 Ariadne Shook NP [address] [place] [address] Nurse Practitioner Neurology 06/01/24 Tabby Light RN [address] [place] [address] [address] [place] [address] Valet Attendant 07/05/24 Junior Tobin MD [address] [place] [phone] Consulting Physician Urology 07/21/24 documented as of this encounter
--- OUTSIDE RECORDS SUMMARY | 2025-02-25 11:20 | XMS_ITS | Encounter Summary ---
Author Organization [facility] Address [address] [place] [address] Phone Care Team Providers Care Box Toe Stitcher Name Role Phone Anila Patino MD Primary Care Provider [phone] Salomon Medrano MD Unavailable [phone] Rosalinda Looney MD Unavailable [phone] Bar[place] Yanez MD Unavailable Shaquille Blanco MD Unavailable Onesimo Magaña MD Unavailable Lit Singer MD Unavailable Johan Marti MD Unavailable [phone] Tino Still MD Unavailable [phone] Matthias Christianson MD Unavailable Matt Richardson DO Unavailable [phone] Pema Gill MD Unavailable [phone] Jus Patel MD Unavailable Haja Luciano MD Unavailable [phone] Yasmine Yanes MD Unavailable [phone] Yasmine Yanes MD Unavailable [phone] Samantha Mir RN Unavailable Unavailable Tabby Mcclendon MD Unavailable Haja Page MD PhD Unavailable + Pema Gill MD Unavailable [phone] Chandler Trejo MD Unavailable [phone] Johan Marti MD Unavailable [phone] BouchraAriadne Ricarda SUPERVISOR LEAD REFINERY Unavailable [phone] Pema Gill MD Unavailable [phone] Hero Jackman MD Unavailable Ronal Jackson MD Unavailable Kristen Perez MD Unavailable [phone] Ryan Sanders MD Unavailable Geovanna AlvarengaM Unavailable [phone] BouchraAriadne Ricarda SUPERVISOR LEAD REFINERY Unavailable [phone] Tabby Light RN Unavailable [phone] Junior Tobin MD Unavailable Encounter Details Date Type Department Care Team (Late st Contact Info) Description 06/12/2017 Orders Only [facility] Provider, MD Anastacio [address] [place] [address] Social History Tobacco Use Types Packs/Day Years Used Date Smoking Tobacco: Never Smokeless Tobacco: Never Alcohol Use Standard Drinks/Week Comments No 0 (1 standard drink = 0.6 oz pure alcohol) occassional mixed drink for special occassions Comments No Sex and Gender Information Value Date Recorded Sex Assigned at Not on file Legal Sex Female 4:42 AM RIP/MOULD OPERATOR Gender Identity Female 03/06/2022 7:30 PM CDT Sexual Orientation Straight 03/06/2022 7: 30 PM CDT documented as of this encounter Plan of Treatment Upcoming Encounters Date Type Department Care Team (Latest Contact Info) Description 02/25/2025 12:30 PM CDT Ancillary Procedure [place] Web Project Manager [address] [facility] [address] [place] [address] SSS (sick sinus syndrome) (HCC); Cardiac pacemaker in situ 09/07/2025 Orders Only [facility] [address] [place] [address] Scanning, Provider documented as of this encounter Procedures Procedure Name Priority Date/Time Associated Diagnosis Comments DISCHARGE LABORATORY CUMULATIVE REPORT 06/12/2017 12:00 AM RIP/MOULD OPERATOR documented in this encounter Results * DISCHARGE LABORATORY CUMULATIVE REPORT (06/12/2017 12:00 AM RIP/MOULD OPERATOR) Narrative 06/12/2017 12:00 AM RIP/MOULD OPERATOR Ordered by an unspecified provider. us Historical Provider LAB BLOOD ORDERABLES Lorelei l Result documented in this encounter Visit Diagnoses Not on filedocumented in this encounter Additional Health Concerns Infection Onset Date Last Indicated Resolved Time COVID: Suspected 08/04/2020 08/04/2020 08/04/2020 2:35 PM RIP/MOULD OPERATOR COVID: Suspected 10/05/2020 10/05/2020 10/05/2020 1:07 PM CDT COVID: Suspected 12/16/2020 12/16/2020 12/16/2020 3:40 PM CDT COVID: Suspected 03/15/2021 03/15/2021 03/15/2021 8:52 AM CDT COVID: Suspected 08/15/2021 08/15/2021 08/16/2021 3:05 AM RIP/MOULD OPERATOR COVID: Suspected 05/20/2022 05/20/2022 05/20/2022 2:35 PM RIP/MOULD OPERATOR COVID19 05/20/2022 05/20/2022 05/30/2022 3:05 AM RIP/MOULD OPERATOR COVID: Recovered Comment:Added based on recent COVID infection. 05/30/2022 05/30/2022 08/28/2022 3:05 AM C DT COVID: Suspected 01/13/2023 01/14/2023 01/14/2023 3:05 AM CDT COVID: Suspected 05/02/2023 05/02/2023 05/02/2023 5:51 PM RIP/MOULD OPERATOR COVID: Suspected 10/10/2023 10/10/2023 10/10/2023 4:01 PM CDT COVID: Suspected 12/06/2024 12/06/2024 12/06/2024 12:57 PM CDT documented as of this encounter Care Teams Box Toe Stitcher Relationship Specialty Start Date End Date Anila Patino MD PCP - General 09/13/16 Salomon Medrano MD [address] [facility] [address] [place] [address] Rheumatology 01/02/17 Rosalinda Looney MD [address] [facility] [address] [place] [address] Psychiatry 01/02/17 Barrington Yanez MD [address] [facility] [address] [place] [address] Pulmonary Disease 01/02/17 01/20/20 [place] [address] [address] [facility] [address] [place] [address] Surgeon Orthopedic Surgery 01/02/17 01/27/22 [place] [address] [address] [facility] [address] [place] [address] Otolaryngology 01/02/17 01/20/20 [place] [address] [address] [facility] [address] [place] [address] Radiation Oncology 01/02/17 [place] [address] [facility] [address] [place] [address] Neurosurgery 01/02/17 Tino Still MD [address] [place] [address] [address] B [facility] [address] [place] [address] Surgeon Orthopedic Surgery 09/19/17 [place] [address] [facility] [address] [place] [address] Referring Physician Urology 09/19/17 01/20/20 [place] [address] [facility] [address] [place] [address] Consulting Physician Gastroenterology 12/10/19 Pema Gill MD [address] [place] [address] Fellow Pulmonary Disease 01/21/20 02/18/24 Jus Patel MD [address] [place] [address] Consulting Physician Urology 01/21/20 02/05/23 Haja Luciano MD [address] [place] [address] Consulting Physician Cardiovascular Disease 12/21/20 Yasmine Yanes MD [address] [place] [address] Consulting Physician Cardiology 07/23/21 Yasmine Yanes MD [address] [place] [address] Consulting Physician Cardiology 07/23/21 01/27/22 Samantha Mir, RN Registered Nurse Pulmonary Disease 01/10/22 02/18/24 Tabby Mcclendon MD [address] [place] [address] Pleater Obstetrics and Gynecology 01/28/22 07/30/22 Haja Page MD PhD [address] [place] [address] Consulting Physician Neurology 05/04/22 05/03/24 Pema Gill MD [address] [place] [address] Fellow Pulmonary Disease 06/21/22 07/30/22 Chandler Trejo MD [address] [facility] [address] [place] [address] Consulting Physician Gastroenterology 07/31/22 02/18/24 Johan Marti MD [address] [facility] [address] [place] [address] Referring Physician Neurosurgery 02/06/23 05/03/24 Ariadne Shook, ROSITA [address] [place] [address] Nurse Practitioner Neurology 07/22/23 05/03/24 Pema Gill MD [address] [place] [address] Fellow Pulmonary Disease 07/22/23 07/22/23 Hero Jackman MD [address] [facility] SLEEP [facility], [facility] [address] [place] [address] Consulting Physician Sleep Medicine 07/22/23 Ronal Jackson MD [address] [place] [address] Consulting Physician Pulmonary Disease 02/19/24 Kristen Perez MD [address] [place] [address] Anesthesiologist Pain Management 02/19/24 Ryan Sanders MD [address] [place] [address] Consulting Physician Urology 05/04/22 Geovanna Alvarenga DPM [address] [place] [address] Consulting Physician Foot and Ankle Surg 05/04/24 Ariadne Shook NP [address] [place] [address] Nurse Practitioner Neurology 06/01/24 Tabby Light RN [address] [place] [address] [address] [place] [address] Collar Sewer 07/05/24 Junior Tobin MD [address] [place] [phone] Consulting Physician Urology 07/21/24 documented as of this encounter
[2025-02-25 11:26] LABS: Alanine Aminotransferase 41 U/L (6-35); Albumin Level 3.9 g/dL (3.5-5.1); Alkaline Phosphatase 88 U/L (38-126); Anion Gap 7 mmol/L (4-12); Aspartate Amino Transferase 38 U/L (14-36); Bilirubin,Total 0.3 mg/dL (0.2-1.3); Blood Urea Nitrogen 13 mg/dL (7-17); CRP 2.3 mg/dL (<1.0); Calcium 8.6 mg/dL (8.4-10.2); Carbon Dioxide 31 mmol/L (22-30); Chloride 101 mmol/L (98-107); Estimated CRCL calculation 80 ml/min; Estimated Glomerular Filt Rate > 60; Glucose 147 mg/dL (65-110); Potassium 3.4 mmol/L (3.4-5.0); Sodium 139 mmol/L (137-145); Total Protein 6.9 g/dL (6.3-8.2)
[2025-02-25 11:29] LABS: INR 1.0; Prothrombin Time 13.4 Seconds (11.1-14.7)
[2025-02-25 11:31] LABS: Partial Thromboplastin Time 31.5 Seconds (22.3-36.8)
[2025-02-25 11:34] LABS: Troponin I < 0.012 ng/mL (0.000-0.034)
[2025-02-25 11:43] LABS: Add Urine Microscopic? YES; Appearance Urine Clear (Clear); Glucose Urine UA Negative (Negative); Leukocyte Esterase Ur Negative LEU/UL (Negative); Nitrate Urine Negative (Negative); Non Pathogenic Casts 0-2; Specific Grav Ur 1.034 (1.001-1.035)
[2025-02-25 11:49] LABS: Influenza A QL RT-PCR Negative (Negative); Influenza B QL RT-PCR Negative (Negative); RSV RNA, RT-PCR Negative (Negative); SARS-CoV-2 RNA PCR Negative (Negative)
[2025-02-25 12:28] LABS: Alveolar/Arterial O2 Gradient 150.3 mmHg; HCO3 ABG 26.1 mEq/l (22.0-26.0); Modified Allen's Test Pass; Oxygen Content ABG 16.6 %vol (16.0-22.0); Oxygen Saturation ABG 96.7 % (95.0-100.0); PCO2 ABG 41.7 mmHg (35.0-45.0); PO2 ABG 86.9 mmHg (80.0-100.0); PO2 FiO2 Ratio Arterial Blood 2.17 %; Site Drawn RIGHT RADIAL
[2025-02-25 12:29] LABS: Fractional Inspired Oxygen 35 %; Liters per Minute 4.0 LPM
--- OUTSIDE RECORDS SUMMARY | 2025-02-25 12:30 | XMS_ITS | Encounter Summary ---
Author Organization [facility] Address [address] [place] [address] Care Team Providers Care Food And Nutrition Services Assistant Name Role Phone Anila Patino MD Primary Care Provider [phone] Salomon Merdano MD Unavailable [phone] Rosalinda Looney MD Unavailable Lit Singer MD Unavailable [phone] Johan Marti MD Unavailable Tino Still MD Unavailable Matt Richardson DO Unavailable [phone] Yasmine Yanes MD Unavailable Hero Jackman MD Unavailable Ronal Jackson MD Unavailable Kristen Perez MD Unavailable Ryan Sanders MD Unavailable Geovanna Alvarenga DPM Unavailable Ariadne Shook NP Unavailable Tabby Light RN Unavailable Junior Tobin MD Unavailable Reason for Visit * Cardiology (Routine) - Closed Specialty Diagnoses / Procedures Referred By Contac t Referred To Contact Diagnoses SSS (sick sinus syndrome) (HCC) Cardiac pacemaker in situ Procedures DEVICE CHECK - REMOTE Yasmine Yanes MD [address] [place] [address] [place] [address] Phone: tel: fax: [facility] Medical Group Referral ID Status Reason Start Date Expiration Date Visits Re quested Visits Authorized [id number] Closed 05/27/2024 11/25/2025 1 1 Encounter Details Date Type Department Care Team (Latest Contact Info) Description 02/25/2025 12:30 PM CDT Ancillary Procedure [place]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 More than 4 times per year 07/05/2024 Do you belong to any clubs o r organizations such as hoahaoism groups, unions, fraternal or athletic groups, or [...] in the past [address] [facility], were you homeless or living in a care home (including now)? No 07/05/2024 Social Connection and Isolation Panel Answer Date Recorded Frequency of Communication with Friends and Fami ly Not on file 02/21/2025 Frequency of Social Gatherings with Friends and Family Not on file 02/21/2025 Attends Amish Services Not on file 02/21 Active Member [...] in the past [address] [facility], were you homeless or living in a care home (including now)? No 02/21/2025 [facility] Utilities Answer Date Recorded In the past 12 months has th e electric, gas, oil, or water company threatened to shut off services in your home? 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 Gender Identity Female 03/06/2022 7:30 PM CDT Sexual Orientation Straight 03/06/2022 7: 30 PM CDT Occupation Industry Job Start Date Job End Date disabled Not on file Not on file Not on file documented as of this encounter Plan of Treatment Upcoming Encounters Date Type Department Care Team (Late st Contact Info) Description 09/07/2025 Orders Only [facility] [address] [place] [address] Scanning, Provider Pending Results Name Type Priority Associated Diagnoses Date /Time DEVICE CHECK - REMOTE Cardiac Services Routine SSS (sick sinus syndrome) (HCC) Cardiac pacemaker in situ 02/24/2025 2:39 PM CDT documented as of this encounter Goals Goal Patient Goal Type Associated Problems Recent Progress Patient-Stated? Author ZAC General Goal - Patient schedules and keeps appointments with all recommended providers ACO Care Management On track(2024 3:50 PM CDT) No Tabby Light RN Note: Problem: Potential for medical complications [...] take, when to call CM or provider. [facility] Chronic Pain Care Plan Chronic Care Management Alanna Linn, CARINA Note: Problem: Chronic Pain Goals: 1. Minimize [...] on stairs Contact your local community or [facility] for information on exercise, fall prevention programs, or options for improving home safety. documented as of this encounter Visit Diagnoses Diagnosis SSS (sick sinus syndrome) (HCC) Sinoatrial node dysfunction Cardiac pacemaker in situ documented in this encounter Care Teams Food And Nutrition Services Assistant Relationship Specialty Start Date End Date Anila Patino MD PCP - General 09/13/16 Salomon Medrano MD [address] [facility] [address] [place] [address] Rheumatology 01/02/17 Rosalinda Looney MD [address] [facility] [address] [place] [address] Psychiatry 01/02/17 Lit Singer MD [address] [facility] [address] [place] [address] Radiation Oncology 01/02/17 Johan Marti MD [address] [facility] [address] [place] [address] Neurosurgery 01/02/17 Tino Still MD [address] [facility] [address] [place] [address] Surgeon Orthopedic Surgery 09/19/17 Matt Richardson DO [address] [facility] [address] [place] [address] Consulting Physician Gastroenterology 12/10/19 Yasmine Yanes MD [address] [facility] [address] [place] [address] Consulting Physician Cardiology 07/23/21 Hero Jackman MD [address] [facility] NEUROLOGY SLEEP [facility] [address] [place] [address] Consulting Physician Sleep Medicine 07/22/23 Ronal Jackson MD [address] [place] [address] Consulting Physician Pulmonary Disease 02/19/24 Kristen Perez MD [address] [place] [address] Anesthesiologist Pain Management 02/19/24 Ryan Sanders MD [address] [address] Consulting Physician Urology 05/04/22 Geovanna Alvarenga DPM [address] [place] [address] Consulting Physician Foot and Ankle Surg 05/04/24 Ariadne Shook NP [address] [place] [address] Nurse Practitioner Neurology 06/01/24 Tabby Light RN 660 [facility] [address] [place] [address] Elastic Attacher Chainstitch 07/05/24 Junior Tobin MD [address] [place] [phone] Consulting Physician Urology 07/21/24 documented as of this encounter
[2025-02-25] MEDS: levoFLOXacin 750 MG/D5W 150 ML 750 MG/150 ML BAG 100 MG IVPB (13:14)
--- NOTE | 2025-02-25 14:12 | P.HP_ITS ---
H&P: HPI History of Present Illness Date/Time: 02/25/25 14:12 Chief Complaint: Shortness of breath Narrative: 74-year-old female presents the hospital shortness of breath. She was at her side doses office today when she started having rigors, the patient was unable to stand and her states that he was afraid she was going to pass out. The symptoms resolved in a few minutes. Patient was sent to the emergency room from her pain hydro sys office. Patient states that she a had a recent bout of diverticulitis and was placed on antibiotics and is on her 2nd course. Patient complains of activity intolerance, shortness of breath and severe abdominal pain. Patient states she has also been dealing with chronic constipation is having trouble going. Denies nausea or vomiting. Lab work in the ED shows leukocytosis at 13.1 anemia of 11.5, ABG within normal limits, glucose of 147, AST of 38 ALT of 41 which is round baseline, C reactive protein 2.3, troponin is negative. Influenza A/B, RSV, COVID negative. Chest x-ray shows opacities edema versus pneumonia. CT abdomen pelvis show mild diverticulitis in the left sigmoid colon, 1.5 cm indeterminate lesion in the right hepatic lobe, and dilation of the common bile duct pose cholecystectomy. Review of Systems Review of Systems: 12 systems were reviewed and are negativ e except for as per HPI. [facility] Past Medical History Medical History Obstructive sleep apnea COPD (chronic obstructive pulmonary disease) Chronic respiratory failure GERD (gastroesophageal reflux disease) Restless leg syndrome Hyperlipidemia Rheumatoid arthritis Hypertension Surgical History Surgical History Previous back surgery H/O cervical spine surgery History of knee replacement Family History Family History Sibling Heart attack Lung cancer Chronic obstructive pulmonary disease Mother Hypertension Father Heart attack Hypertension Throat cancer Other Acute myocardial infarction Social History Social History Smoking status: Never smoker Alcohol intake: never Drinks per week: 1 Substance use: never Substance use type: does not use Lack of Transportation: No Lack of Food: Never True Current Housing: I Have Housing Concerned About Future Housing: No Difficulty Paying Gas/Electric Bills: No Difficulty Paying for Meds: No Currently Unemployed: No Education: High School Diploma/GED Difficulty w/ Childcare or Family Care: No Gender identity (if verbalized by the patient): Female Sexual Orientation (if Verbalized by the Patient): Straight or Heterosexual Spiritual care concerns: No Meds Home Medications and Allergies Home Medications ?Medication ?Instructions ?Recorded ?Confirmed ?Type albuterol sulfate 90 mcg/actuation 2 puff inhalation Q 4H PRN 05/05/20 02/25/25 History aerosol inhaler SHORTNESS OF BREATH amlodipine 5 mg tablet 5 mg PO DAILY 05/05/2002/25 History atorvastatin 20 mg tablet 20 mg PO DAILY 05/05/2002/14 History azelastine 137 mcg (0.1 %) nasal 137 mcg intranasal BI D 05/05/20 02/25/25 History spray buspirone 10 mg tablet 10 mg PO TID 05/05/20 History clonazepam 0.5 mg tablet 0.5 mg PO Q12H PRN Anxiety 1 07/05/19 02/25/25 History escitalopram oxalate 20 mg tablet 20 mg PO DAILY 05/0502/25/25 History fluticasone propionate 50 2 spray intranasal DAILY 02/25/25 History mcg/actuation nasal spray,suspension montelukast 10 mg tablet 10 mg PO HS 05/05/20 5 History pramipexole 1.5 mg tablet 4.5 mg PO HS 05/05/20 History trazodone 50 mg tablet 300 mg PO HS 05/05/20 History Lactobacillus reuteri 100 million 1 cell PO DAILY 04/1702/25/25 History cell chewable tablet adalimumab 40 mg/0.4 mL 40 mg subcut S2CPANN 0 02/25/25 History subcutaneous pen kit (Humira(CF) Pen) cholecalciferol (vitamin D3) 10 10 mcg PO DAILY 02/25/25 History mcg (400 unit) tablet (Vitamin D3) multivitamin with minerals 1 tablet PO DAILY 05/06/20 02/25/25 History acetaminophen 500 mg tablet 500 mg PO Q6H PRN pain #30 tabs 05/10/20 02/25/25 Rx ferrous sulfate 324 mg (65 mg 324 mg PO DAILY #30 tabs 05/10/20 02/25/25 Rx iron) tablet,delayed release omeprazole 20 mg capsule,delayed 20 mg PO BID #0 caps 05/10/20 02/25/25 Rx release aspirin 81 mg tablet,delayed 81 mg PO DAILY 09/28/21 0 02/25/25 History release clopidogrel 75 mg tablet (Plavix) 75 mg PO DAILY 09/2802/25/25 History albuterol sulfate 2.5 mg/0.5 mL 2.5 mg inhalation QID 10/10/21 02/25/25 History solution for nebulization calcium carbonate 600 mg PO DAILY 10/10/2106/09 History furosemide 40 mg tablet 40 mg PO BID 10/10/21 History potassium chloride 20 mEq 20 meq PO DAILY 10/10/2106/09 History tablet,extended release tizanidine 4 mg capsule 4 mg PO HS PRN Muscle Spasm 10/10/21 02/25/25 History ondansetron 4 mg disintegrating 4 mg PO Q8H #7 tabs 02/25/25 Rx tablet budesonide 160 mcg-glycopyr 9 2 inh inhalation BID 06/0902/25/25 History mcg-formot 4.8 mcg/actuation HFA inhaler (Breztri Aerosphere) gentamicin 0.1 % topical ointment 1 applic topical JV LY 02/25/25 02/25/25 History miconazole nitrate 4 % (200 mg)-2 1 appful vaginal HS 02/25/25 02/25/25 History % (9 gram)vaginal,prefill appl,cream (Miconazole-3) moxifloxacin 400 mg tablet 400 mg PO DAILY 02/25/25 History mycophenolate mofetil 500 mg tablet 1,000 mg PO Q12H 0 02/25/25 02/25/25 History pantoprazole 40 mg tablet,delayed 40 mg PO DAILY 02/2502/25/25 History release spironolactone 25 mg tablet 25 mg PO DAILY 02/25/25 History tramadol 50 mg tablet 50 mg PO BID pain 4-6 02/25/25 History vilazodone 10 mg tablet (Viibryd) 10 mg PO DAILY 02/2502/25/25 History Allergies Allergy/AdvReac Type Severity Reaction Status Date / Time Penicillins Allergy Unknown Verified 02/25/25 14:17 scopolamine Allergy Unknown Verified 02/25/25 14:17 Sulfa (Sulfonamide Allergy Unknown Verified 02/25/25 14:17 Antibiotics) codeine AdvReac Mild Nausea Verified 02/25/25 14:17 Vital Signs Vital Signs - 24 hr 02/25/25 09:58 02/25/25 10:13 02/25/25 10:18 Temperature 97.9 F Pulse Rate 89 90 Respiratory Rate 24 H Blood Pressure 139/86 Pulse Oximetry 95 94 Oxygen Delivery Nasal Cannula Nasal Cannula Oxygen Flow Rate 5 5 02/25/25 10:18 02/25/25 11:07 02/25/25 12:55 Temperature 97.7 F Pulse Rate 90 87 93 Respiratory Rate 18 18 14 Blood Pressure 133/102 H 121/66 131/63 Pulse Oximetry 95 98 97 Oxygen Delivery Oxygen Flow Rate 02/25/25 13:31 Temperature 98.7 F Pulse Rate 93 Respiratory Rate 20 Blood Pressure 120/75 Pulse Oximetry 97 Oxygen Delivery Oxygen Flow Rate Exam Narrative: General: Tearful, appears stated age. Chronically ill HEENT: normocephalic, atraumatic. Mucous membranes moist. EOMI, PERRLA, bilateral sclera anicteric, no conjunctival injection. Neck supple without JVD, lymphadenopathy, or bruit. Respiratory: clear to ascultation bilaterally. No rales/rhonic/wheezes. Cardiovascular: Regular rate and rhythm, normal S1-S2 upon ascultation. No murmurs, rubs, or clicks. PMI is nondisplaced, capillary refill less than 3 second. Abdomen: Soft, round, no pulsatile masses, nondistended and nontender. No rebound, no guarding. No CVA tenderness, no hepatosplenomegaly. Bowel sounds present to all four quadrants. No high pitch or tinkling sounds, resonant to percussion. Extremities: No cyanosis, clubbing, or edema present. Pulses are palpable 2/2. Active ROM to all four extremities. Neuro: Alert and orientated x 4. PERRLA. Cranial nerves 2-12 intact without focal deficit. Skin: Warm, dry, and intact, without rash, erythema, or lesion. Psych: pleasant, cooperative, normal speech, normal affect, no hallucinations, no dysarthia H&P: Results Labs Labs: Short CBC 02/25/25 Range/Units 11:03 WBC 13.1 H (4.5-10.0) K/mm3 Hgb 11.5 L (12.0-15.0) g/dL Hct 37.2 (37.0-47.0) % Plt Count 238 (150-375) k/mm3 BMP 02/25/25 11:03 Sodium 139 Potassium 3.4 Chloride 101 Carbon Dioxide 31 H BUN 13 D Creatinine 0.47 L Glucose 147 H Calcium 8.6 Cardiac Enzymes 02/25/25 Range/Units 11:03 Troponin I < 0.012 (0.000-0.034) ng/mL Liver Function 02/25/25 Range/Units 11:03 Total Bilirubin 0.3 (0.2-1.3) mg/dL AST 38 H (14-36) U/L ALT 41 H (6-35) U/L Alkaline Phosphatase 88 (38-126) U/L Albumin 3.9 (3.5-5.1) g/dL Urine 02/25/25 Range/Units 11:22 Urine Color Yellow (Yellow) Urine Appearance Clear (Clear) Urine pH 5.5 (5.0-9.0) Ur Specific [place] 1.034 (1.001-1.035) Urine Protein 1+ H (Negative) mg/dL Urine Glucose (UA) Negative (Negative) mg/dL Assessment and Plan Assessment and plan (1) Diverticulitis: Code(s): K57.92 - Diverticulitis of intestine, part unspecified, without perforation or abscess without bleeding Status: Acute Assessment and Plan: Levofloxacin and Flagyl Blood cultures pending IVF (2) Pneumonia: Code(s): J18.9 - Pneumonia, unspecified organism Status: Acute Assessment and Plan: Likely COPD exacerbation Levofloxacin Flagyl Solu-Medrol followed by prednisone Guaifenesin (3) Bile duct, common, 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 Status: Acute Assessment and Plan: LFTs a slight elevation Recommending MRCP, however patient has pacemaker so will consult GI (4) Liver lesion: Code(s): K76.9 - Liver disease, unspecified Status: Acute Assessment and Plan: LFTs with slight elevation Recommending MRI with and without contrast however patient has pacemaker so will consult GI (5) Hyperlipidemia: Qualifiers: Hyperlipidemia type: unspecified Qualified Code(s): E78.5 - Hyperlipidemia, unspecified Code(s): E78.5 - Hyperlipidemia, unspecified Status: Chronic (6) Rheumatoid arthritis: Qualifiers: Rheumatoid arthritis location: unspecified site Rheumatoid factor presence: unspecified presence Qualified Code(s): M06.9 - Rheumatoid arthritis, unspecified Code(s): M06.9 - Rheumatoid arthritis, unspecified Status: Acute Assessment and Plan: Continue home medication (7) Anxiety: Code(s): F41.9 - Anxiety disorder, unspecified Status: Acute Assessment and Plan: Continue home anti anxiety medications (8) Diabetes: Code(s): E11.9 - Type 2 diabetes mellitus without complications Status: Acute Assessment and Plan: Patient may place on her CMT Accu-Cheks until family bring from home SSI Quality VTE Prophylaxis VTE prophylaxis: mechanical ordered and pharmacologic ordered Hospitalist MIPS Advance Care Plan I have confirmed that the patient's Advanced Care Plan is present, code status is documented, or surrogate decision maker is listed in patient medical record.: Yes Medication Reconciliation I have utilized all available resources to obtain, update and review the patients current medications (includes all prescriptions, OTC, herbals, cannabis, and nutritional supplements).: Yes
--- NOTE | 2025-02-25 14:16 | ADMGEN ---
This patient, Estefany Loja, was admitted to [facility] Surg Room 303-01. Patient/family oriented to hospital policies and general routines including ID bracelet, bed and alarms, visiting hours, pain management, procedures, bathroom and other care routines, personal items, smoking policy, room service/diet, and visiting hours. Information on how to activate the Rapid Response Team has been discussed. Patient/Family are encouraged to report perceived risks to care and to ask questions if they do not understand what they are told or what they should do.
[2025-02-25 14:49] LABS: Hemoglobin A1C 7.2 % (<5.7)
[2025-02-25 14:52] LABS: Iron 29 ug/dL (37-170)
[2025-02-25 15:02] LABS: NT Pro B Type Natriuretic Pept 30 pg/mL (19.9-100); Percent Iron Saturation 8 % (20-50)
[2025-02-25] MEDS: SODIUM CHLORIDE 0.9% IV 1,000 ML 60 ML IV CONT (15:05)
[2025-02-25] MEDS: metroNIDAZOLE 500 MG/ISO 100ML 500 MG/100 ML BAG 100 MG IVPB ×2 (15:06→22:50)
[2025-02-25 15:29] LABS: Thyroid Stimulating Hormone Reflex 0.578 uIU/mL (0.465-4.68)
[2025-02-25 15:33] LABS: Ferritin 36.00 ng/mL (11.1-264)
[2025-02-25 15:59] LABS: Vitamin B12 554.0 pg/mL (239-931)
[2025-02-25] MEDS: ACETAMINOPHEN 325 MG TABLET 650 MG PO ×2 (16:35→22:00)
[2025-02-25] MEDS: IPRATROPIUM 0.5 MG/ALBUTEROL SULFATE 2.5 MG AMPUL.NEB 3 ML INHALATION ×2 (18:19→20:19)
[2025-02-25] MEDS: guaiFENesin 12 HR 600 MG TABCR 1200 MG PO (20:37)
[2025-02-25] MEDS: PRAMIPEXOLE 1 MG TABLET 4 MG PO (21:58)
[2025-02-25] MEDS: SENNA/DOCUSATE SODIUM TABLET 1 TAB PO (21:58)
[2025-02-25] MEDS: PRAMIPEXOLE 0.5 MG TABLET PO (21:59)
[2025-02-25] MEDS: MONTELUKAST SODIUM 10 MG TABLET PO (21:59)
[2025-02-25] MEDS: clonazePAM (*CRX) 0.5 MG TABLET PO (22:00)
[2025-02-25] MEDS: traMADol HCL (*CRX) 50 MG TABLET PO (22:01)
[2025-02-26] VITALS (13 sets, daily range): BP systolic 123–140; BP diastolic 60–66; PULSE 72–97; RESP 18–28; TEMP 36.6–37; O2SAT 93–98
[2025-02-26] MEDS: IPRATROPIUM 0.5 MG/ALBUTEROL SULFATE 2.5 MG AMPUL.NEB 3 ML INHALATION ×4 (01:15→21:47)
[2025-02-26] MEDS: metroNIDAZOLE 500 MG/ISO 100ML 500 MG/100 ML BAG 100 MG IVPB ×3 (05:15→22:05)
[2025-02-26 05:50] LABS: Hematocrit 36.6 % (37.0-47.0); Hemoglobin 11.7 g/dL (12.0-15.0); Immature Granulocyte Percent A 0.9 % (0-0.5); Lymphocytes Absolute Auto 0.90 K/mm3 (0.9-3.2); Mean Corpuscular HGB Conc 32.0 g/dl (32-36); Mean Corpuscular Hemoglobin 29.8 pg (26-34); Mean Corpuscular Volume 93.1 fl (80-100); Nucleated Red Blood Cells Absolute Auto 0.000 K/mm3 (0.0-0.012); Nucleated Red Blood Cells Perc 0.0 % (0.0-0.2); Platelet Count Result 234 k/mm3 (150-375); Red Blood Count 3.93 M/mm3 (4.2-5.4); White Blood Count 15.9 K/mm3 (4.5-10.0)
[2025-02-26 06:06] LABS: Alanine Aminotransferase 38 U/L (6-35); Albumin Level 3.8 g/dL (3.5-5.1); Alkaline Phosphatase 64 U/L (38-126); Anion Gap 6 mmol/L (4-12); Aspartate Amino Transferase 34 U/L (14-36); Bilirubin,Total 0.4 mg/dL (0.2-1.3); Blood Urea Nitrogen 9 mg/dL (7-17); Calcium 8.6 mg/dL (8.4-10.2); Carbon Dioxide 30 mmol/L (22-30); Chloride 103 mmol/L (98-107); Estimated CRCL calculation 93 ml/min; Estimated Glomerular Filt Rate > 60; Glucose 205 mg/dL (65-110); Potassium 3.9 mmol/L (3.4-5.0); Sodium 139 mmol/L (137-145); Total Protein 6.6 g/dL (6.3-8.2)
[2025-02-26] MEDS: traMADol HCL (*CRX) 50 MG TABLET PO ×2 (08:54→21:59)
[2025-02-26] MEDS: ESCITALOPRAM OXALATE 10 MG TABLET 20 MG PO (08:54)
[2025-02-26] MEDS: FUROSEMIDE 40 MG TABLET PO ×2 (08:54→16:14)
[2025-02-26] MEDS: ASPIRIN 81 MG ENTERIC TABLET PO (08:55)
[2025-02-26] MEDS: CLOPIDOGREL BISULFATE 75 MG TABLET PO (08:55)
[2025-02-26] MEDS: ATORVASTATIN 20 MG TABLET PO (08:55)
[2025-02-26] MEDS: SPIRONOLACTONE 25 MG TABLET PO (08:55)
[2025-02-26] MEDS: guaiFENesin 12 HR 600 MG TABCR 1200 MG PO ×2 (08:55→22:00)
--- NOTE | 2025-02-26 09:02 | P.PNIM_ITS ---
Progress Note: A&P Assessment and Plan (1) Diverticulitis: Code(s): K57.92 - Diverticulitis of intestine, part unspecified, without perforation or abscess without bleeding Status: Acute Assessment and Plan: * Persistence is worrisome, consider due to immunosuppression vs structural lesion, no evidence for abscess by imaging * Last colonoscopy about 3 years ago with polypectomies that were benign by history * Continue Levaquin * 02/26/[address] [facility], GI consultation (2) Pneumonia: Code(s): J18.9 - Pneumonia, unspecified organism Status: Acute Assessment and Plan: * LLL by CT * Continue Levaquin, prednisone (begun 02/25/2025) (3) COPD (chronic obstructive pulmonary disease): Qualifiers: COPD type: unspecified COPD Qualified Code(s): J44.9 - Chronic obstructive pulmonary disease, unspecified Code(s): J44.9 - Chronic obstructive pulmonary disease, unspecified Status: Chronic Assessment and Plan: * She likely has an element of interstitial lung disease related to her rheumatoid arthritis as well as restrictive lung disease related to her body habitus * Dyspnea is worsened likely due to acute infection possible pneumonia * With history of increased edema and orthopnea and prior history of congestive heart failure consider CHF exacerbation as well perhaps related to recent infections and fluid loading while hospitalized * 02/26/2025: Continue Levaquin, prednisone; add one dose of IV furosemide; echo and BNP ordered (4) Chronic respiratory failure: Qualifiers: Respiratory failure complication: unspecified whether with hypoxia or hypercapnia Qualified Code(s): J96.10 - Chronic respiratory failure, unspecified whether with hypoxia or hypercapnia Code(s): J96.10 - Chronic respiratory failure, unspecified whether with hypoxia or hypercapnia Status: Chronic Assessment and Plan: * Continue oxygen 5 LPM (5) Obstructive sleep apnea: Code(s): G47.33 - Obstructive sleep apnea (adult) (pediatric) Status: Chronic Assessment and Plan: * Continue BiPAP (6) Pacemaker: Code(s): Z95.0 - Presence of cardiac pacemaker Status: Acute Assessment and Plan: * Site without erythema or increased warmth (7) Hypertension: Qualifiers: Hypertension type: unspecified Qualified Code(s): I10 - Essential (primary) hypertension Code(s): I10 - Essential (primary) hypertension Status: Chronic Assessment and Plan: * Continue amlodipine (8) Rheumatoid arthritis: Qualifiers: Rheumatoid arthritis location: unspecified site Rheumatoid factor presence: unspecified presence Qualified Code(s): M06.9 - Rheumatoid arthritis, unspecified Code(s): M06.9 - Rheumatoid arthritis, unspecified Status: Acute Assessment and Plan: * Hold immunosuppressive therapy while treating infection (9) Type 2 diabetes mellitus with unspecified complications: Code(s): E11.8 - Type 2 diabetes mellitus with unspecified complications Status: Acute Assessment and Plan: * Hemoglobin A1c 7.2% * Receiving no outpatient therapy * Basal and sliding scale insulin ordered (10) Iron (Fe) deficiency anemia: Code(s): D50.9 - Iron deficiency anemia, unspecified Status: Acute Assessment and Plan: * Chronic since teenage years * Last colonoscopy approximately 3 years ago with multiple polypectomies per history * Last EGD about 6 years ago was WNL per history * 02/26/2025 Iron sucrose 300 mg IV x 1 (11) Liver lesion: Code(s): K76.9 - Liver disease, unspecified Status: Acute Assessment and Plan: * 02/14 interpreted as 2.8 cm cyst, 02/25 as ill defined 1.5 cm mass * 02/26 ordered U/s RUQ for further clarification (12) Sepsis: Code(s): A41.9 - Sepsis, unspecified organism Status: Acute Assessment and Plan: * Supported by leukocytosis, tachycardia at admission, source of infection, lactic acidosis (13) Venous stasis dermatitis of both lower extremities: Code(s): I87.2 - Venous insufficiency (chronic) (peripheral) Status: Acute Assessment and Plan: * Worsened per history Subjective Date/time seen: 02/26/25 09:02 Interval history: 74-year-old female with history of rheumatoid arthritis with chronic lung dis ease with hypoxic respiratory failure diverticulitis and congestive heart failure and pacemaker was hospitalized at [facility] in [place] last month for acute diverticulitis. She was in intensive care unit for a few days. Her left lower quadrant abdominal pain never completely resolved. She returned to the emergency department this time and [facility] on February [address] at that time showed diverticulitis. 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 She received another prescription for antibiotics (Levaquin & Flagyl) and completed those at home. Again her left lower quadrant abdominal pain completely resolved. On February 14 she noted some increasing shortness of breath. It worsened over the ensuing 10 days or so such that she was unable to complete activities of daily living without shortness of breath. She normally sleeps in a recliner 1/2 was having to prop herself up higher in the recliner in order to breathe in spite of using 5 liters/minute of oxygen by nasal cannula. 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 She denied chest pain or abnormal bleeding. Denied measured fevers. She has chronic urinary incontinence and recently had a urinary catheter that was removed. She is on chronic immunosuppressive therapy with Humira mycophenolate and Plaquenil for rheumatoid arthritis. She does have a history of congestive heart failure and pacemaker. She takes spironolactone furosemide aspirin amlodipine and Plavix. She did note increased orthopnea and mild increase in her chronic edema and darkening or the brown discoloration of her legs. Review of Systems Review of Systems: All systems reviewed & are unremarkable except as noted in HPI and below Exam Narrative: HEENT: PERRL, sclerae nonicteric, pharyngeal mucosa pink and intact NECK: No JVD, adenopathy, or thyromegaly CHEST: Increased AP diameter, mildly tachypneic, diminished coarse breath sounds throughout without wheezes or crackles HEART: NL S1/S2, regular, no murmur ABDOMEN: BS+, soft, tender LLQ with guarding, no palpable mass EXTREMITIES: Trace pretibial edema, confluent dark brown macular pigmentation of legs NEUROLOGIC: CN intact and symmetric to inspection, tone and strength symmetric to inspection MUSCULOSKELETAL: Bony enlargement of MCP and PIP joints of hands, bilateral bunions with lateral deviation of toes PSYCH: Alert. Oriented to person, place, and time Objective Data Vital Signs Vital Signs: Vital Signs - 24 hr 02/25/25 09:58 02/25/25 10:13 02/25/25 10:18 Temperature 97.9 F Pulse Rate 89 90 Respiratory Rate 24 H Blood Pressure 139/86 Pulse Oximetry 95 94 Oxygen Delivery Nasal Cannula Nasal Cannula Oxygen Flow Rate 5 5 Fraction of Inspired Oxygen 02/25/25 10:18 02/25/25 11:07 02/25/25 12:55 Temperature 97.7 F Pulse Rate 90 87 93 Respiratory Rate 18 18 14 Blood Pressure 133/102 H 121/66 131/63 Pulse Oximetry 95 98 97 Oxygen Delivery Oxygen Flow Rate Fraction of Inspired Oxygen 02/25/25 13:31 02/25/25 14:16 02/25/25 14:16 Temperature 98.7 F 97.1 F L Pulse Rate 93 89 Respiratory Rate 20 20 Blood Pressure 120/75 130/68 Pulse Oximetry 97 96 97 Oxygen Delivery Nasal Cannula Oxygen Flow Rate 5 Fraction of Inspired Oxygen 02/25/25 16:00 02/25/25 18:22 02/25/25 18:25 Temperature 97.6 F Pulse Rate 92 96 Respiratory Rate 20 19 Blood Pressure 134/70 Pulse Oximetry 98 92 Oxygen Delivery Nasal Cannula Oxygen Flow Rate 3 Fraction of Inspired Oxygen 32 02/25/25 18:31 02/25/25 20:20 02/25/25 20:20 Temperature Pulse Rate 91 98 Respiratory Rate 19 20 Blood Pressure Pulse Oximetry 95 Oxygen Delivery Nasal Cannula Oxygen Flow Rate 3 Fraction of Inspired Oxygen 02/25/25 20:24 02/25/25 20:43 02/25/25 21:15 Temperature 98.3 F Pulse Rate 93 94 Respiratory Rate 20 20 Blood Pressure 127/72 Pulse Oximetry 93 99 Oxygen Delivery Nasal Cannula Oxygen Flow Rate 5 Fraction of Inspired Oxygen 02/26/25 01:16 02/26/25 01:16 02/26/25 01:27 Temperature Pulse Rate 85 85 92 Respiratory Rate 28 H 28 H 28 H Blood Pressure Pulse Oximetry 93 Oxygen Delivery Autopap Oxygen Flow Rate Fraction of Inspired Oxygen 02/26/25 06:00 02/26/25 08:00 Temperature 97.8 F Pulse Rate 95 Respiratory Rate 20 Blood Pressure 140/66 Pulse Oximetry 96 96 Oxygen Delivery Nasal Cannula Oxygen Flow Rate 5 Fraction of Inspired Oxygen Intake/Output Intake/Output: Intake & Output 02/23/25 02/24/25 02/25/25 02/26/25 23:59 23:59 23:59 23:59 Intake Total 2210 150 Output Total 100 Balance 2110 150 Meds/Results Medications: Active Medications Generic Name Dose Route Start Last Admin Trade Name Freq PRN Reason Stop Dose Admin Acetaminophen 650 mg 02/25/25 13:11 02/25/25 22:00 Acetaminophen 325 Mg Tablet PO 650 mg Q4H PRN Administration Mild Pain (1-3) or Fever Albuterol/Ipratropium 3 ml 02/25/25 20:00 02/26/25 01:15 Ipratropium 0.5 Mg/Albuterol Sulfate 2.5 Mg Ampul.Neb 3 Ml INHALATION 3 ml Q6HRT SILAS Administration Albuterol/Ipratropium 3 ml 02/25/25 18:04 02/25/25 18:19 Ipratropium 0.5 Mg/Albuterol Sulfate 2.5 Mg Ampul.Neb 3 Ml INHALATION 3 ml Q6HRT PRN Administration shortness of breath Amlodipine Besylate 5 mg 02/26/25 09:00 Amlodipine Besylate 5 Mg Tablet PO DAILY [facility] Aspirin 81 mg 02/26/25 09:00 Aspirin 81 Mg Enteric Tablet PO DAILY [facility] Atorvastatin Calcium 20 mg 02/26/25 09:00 Atorvastatin 20 Mg Tablet PO DAILY [facility] Buspirone HCl 10 mg 02/25/25 20:40 02/25/25 22:00 Buspirone Hcl 10 Mg Tablet PO 10 mg TID SILAS Administration Clonazepam 0.5 mg 02/25/25 20:35 02/25/25 22:00 Clonazepam (*Crx) 0.5 Mg Tablet PO 0.5 mg Q12H PRN Administration Anxiety Clopidogrel Bisulfate 75 mg 02/26/25 09:00 Clopidogrel Bisulfate 75 Mg Tablet PO DAILY [facility] Dextrose 12.5 gm 02/25/25 21:47 Dextrose 50% 25 Gm/50 Ml Syringe IV PUSH PRN PRN Hypoglycemia Protocol Enoxaparin Sodium 40 mg 02/26/25 09:00 Enoxaparin 40 Mg/0.4 Ml Syringe SUB-Q DAILY [facility] Escitalopram Oxalate 20 mg 02/26/25 09:00 Escitalopram Oxalate 10 Mg Tablet PO DAILY [facility] Furosemide 40 mg 02/26/25 09:00 Furosemide 40 Mg Tablet PO BID [facility] Glucagon 1 mg 02/25/25 21:47 Glucagon For Inj 1 Mg Vial IM PRN PRN Hypoglycemia Protocol Glucose 15 gm 02/25/25 21:47 Glucose Oral Gel 15 Gm Of Glucse In 37.5 Gm Tube PO PRN PRN Hypoglycemia Protocol Guaifenesin 1,200 mg 02/25/25 21:00 02/25/25 20:37 Guaifenesin 12 Hr 600 Mg Tabcr PO 1,200 mg Q12HR SILAS Administration Levofloxacin/Dextrose 750 mg in 150 mls @ 100 mls/hr 02/25/25 12:55 02/25/25 15:00 Levaquin 750 Mg/D5w 150 Ml IVPB Infused QAM SILAS Infusion Metronidazole 500 mg in 100 mls @ 100 mls/hr 02/25/25 14:00 02/26/25 06:15 Flagyl 500 Mg/Iso Soln 100 Ml IVPB Infused Q8H SILAS Infusion Sodium Chloride 1,000 mls @ 60 mls/hr 02/25/25 13:15 02/25/25 15:05 Normal Saline Iv IV CONT 60 mls/hr .[id number] SILAS Administration Dextrose 1,000 mls @ 100 mls/hr 02/25/25 21:47 Dextrose 5% 1,000 Ml IVPB PRN PRN Hypoglycemia Protocol Insulin Aspart 2 - 5 units 02/26/25 08:00 Insulin Aspart (*Bkc) 100 Units/Ml SUB-Q TIDWM SILAS Protocol Miscellaneous Information 1 each 02/26/25 00:01 Please Send [facility] To Pharmacy For Verification XX 03/28/25 00:00 CLARIFY SILAS Miscellaneous Information 1 each 02/26/25 00:01 Viibryd Is Nonform; Can Pt Use From Home? XX 03/28/25 00:00 CLARIFY SILAS Miscellaneous Information 1 each 02/26/25 00:01 Clarify Zanaflex--Pt Has A Ranged Dose According To Med. Rec. Comments. Ok To Do 4 Mg Dose XX 03/28/25 00:00 CLARIFY SILAS Montelukast Sodium 10 mg 02/25/25 21:00 02/25/25 21:59 Montelukast Sodium 10 Mg Tablet PO 10 mg HS SILAS Administration Mycophenolate Mofetil 1,000 mg 02/25/25 21:00 02/25/25 22:00 Mycophenolate Mofetil 250 Mg Capsule PO 1,000 mg Q12H SILAS Administration Polyethylene Glycol 17 gm 02/26/25 09:00 Polyethylene Glycol 3350 17 Gm Powd.Pack PO QAM SILAS Pramipexole Dihydrochloride 4 mg 02/25/25 21:00 02/25/25 21:58 Pramipexole 1 Mg Tablet PO 4 mg HS SILAS Administration Pramipexole Dihydrochloride 0.5 mg 02/25/25 21:00 02/25/25 21:59 Pramipexole 0.5 Mg Tablet PO 0.5 mg HS SILAS Administration Prednisone 50 mg 02/26/25 08:00 Prednisone 10 Mg Tablet PO 03/03/25 07:59 DAILY@0800 SILAS Senna/Docusate Sodium 1 tab 02/25/25 21:00 02/25/25 21:58 Senna/Docusate Sodium Tablet PO 1 tab HS SILAS Administration Spironolactone 25 mg 02/26/25 09:00 Spironolactone 25 Mg Tablet PO DAILY SILAS Tizanidine HCl 4 mg 02/25/25 21:05 Tizanidine Hcl 4 Mg Tablet PO HS PRN Muscle Spasm Tramadol HCl 50 mg 02/25/25 21:40 02/25/25 22:01 Tramadol Hcl (*Crx) 50 Mg Tablet PO 50 mg BID SILAS Administration Trazodone HCl 50 mg 02/25/25 22:33 02/25/25 23:03 Trazodone Hcl 50 Mg Tablet PO 50 mg HS PRN Administration Insomnia Radiology Results: ITS Impressions Abdomen/Pelvis CT 02/25/25 11:46 IMPRESSION: 1. Mild diverticulitis along the left sigmoid colon. 2. Indeterminate 1.5 cm hyperenhancing focus in the right hepatic lobe which could relate to transient hepatic attenuation difference or neoplasm. Recommend follow-up pre and postcontrast MRI for further evaluation when clinically appropriate. 3. Dilation the common bile duct likely related to prior cholecystectomy. Correlate with liver function tests. If clinically indicated this could be further evaluated with MRI/MRCP. Chest X-Ray 02/25/25 12:20 IMPRESSION: 1: Small interstitial opacities in the visualized lung herrmann. Differential includes chronic interstitial changes, interstitial edema or interstitial pneumonia. 2. Lung volumes are low. If symptoms persist or worsen, consider a short-term follow-up study or additional imaging for further assessment. Labs Labs: Laboratory Results - last 24 hr 02/25/25 02/25/25 02/25/25 11:03 11:18 11:22 WBC 13.1 H RBC 3.94 L Hgb 11.5 L Hct 37.2 MCV 94.4 MCH 29.2 MCHC 30.9 L RDW 13.6 Plt Count 238 MPV 9.0 Immature Gran % (Auto) 0.7 H Neut % (Auto) 85.6 H Lymph % (Auto) 7.2 L [place] % (Auto) 5.8 Eos % (Auto) 0.3 Baso % (Auto) 0.4 Lymph # (Auto) 0.94 [place] # (Auto) 0.8 H Eos # (Auto) 0.0 Baso # (Auto) 0.1 Abs Immat Gran (auto) 0.09 H Absolute Neuts (auto) 11.3 H Absolute Nucleated RBC 0.000 Nucleated RBC % 0.0 PT 13.4 INR 1.0 APTT 31.5 Puncture Site Right radial ABG pH 7.415 ABG pCO2 41.7 ABG pO2 86.9 ABG PO2/FiO2 Ratio 2.17 ABG HCO3 26.1 H ABG O2 Saturation 96.7 ABG O2 Content 16.6 ABG Base Excess 1.4 A-a Gradient 150.3 Oxyhemoglobin 96.0 Total Hemoglobin 12.2 O2 Delivery Device Nasal cannula O2 Liters/Min 4.0 FiO2 35 Sodium 139 Potassium 3.4 Chloride 101 Carbon Dioxide 31 H Anion Gap 7 BUN 13 D Creatinine 0.47 L Estim Creat Clear Calc 80 Estimated GFR > 60 Glucose 147 H POC Capillary Glucose Hemoglobin A1c Lactic Acid 2.0 Calcium 8.6 Iron TIBC % Saturation Ferritin Total Bilirubin 0.3 AST 38 H ALT 41 H Alkaline Phosphatase 88 Troponin I < 0.012 C-Reactive Protein 2.3 H NT-Pro-B Natriuret Pep Total Protein 6.9 Albumin 3.9 Vitamin B12 Folate TSH (Reflex) Urine Color Yellow Urine Appearance Clear Urine pH 5.5 Ur Specific [place] 1.034 Urine Protein 1+ H Urine Glucose (UA) Negative Urine Ketones Negative Ur Blood (Man) Negative Urine Nitrate Negative Urine Bilirubin Negative Urine Urobilinogen 0.2 Leukocyte Esterase Rfl Negative Urine RBC 0-2 Urine WBC 0-5 Ur Squamous Epith Cells None seen Urine Bacteria None seen Urine Casts 0-2 Influenza A (RT-PCR) Negative Influenza B (RT-PCR) Negative RSV (RT-PCR) Negative SARS-CoV-2 RNA (RT-PCR) Negative 02/25/25 02/25/25 02/25/25 14:34 17:52 23:48 WBC RBC Hgb Hct MCV MCH MCHC RDW Plt Count MPV Immature Gran % (Auto) Neut % (Auto) Lymph % (Auto) [place] % (Auto) Eos % (Auto) Baso % (Auto) Lymph # (Auto) [place] # (Auto) Eos # (Auto) Baso # (Auto) Abs Immat Gran (auto) Absolute Neuts (auto) Absolute Nucleated RBC Nucleated RBC % PT INR APTT Puncture Site ABG pH ABG pCO2 ABG pO2 ABG PO2/FiO2 Ratio ABG HCO3 ABG O2 Saturation ABG O2 Content ABG Base Excess A-a Gradient Oxyhemoglobin Total Hemoglobin O2 Delivery Device O2 Liters/Min FiO2 Sodium Potassium Chloride Carbon Dioxide Anion Gap BUN Creatinine Estim Creat Clear Calc Estimated GFR Glucose POC Capillary Glucose 183 H Hemoglobin A1c 7.2 H Lactic Acid 2.3 H 3.7 H Calcium Iron 29 L TIBC 381 % Saturation 8 L Ferritin 36.00 Total Bilirubin AST ALT Alkaline Phosphatase Troponin I C-Reactive Protein NT-Pro-B Natriuret Pep 30 Total Protein Albumin Vitamin B12 554.0 Folate 18.4 TSH (Reflex) 0.578 Urine Color Urine Appearance Urine pH Ur Specific [place] Urine Protein Urine Glucose (UA) Urine Ketones Ur Blood (Man) Urine Nitrate Urine Bilirubin Urine Urobilinogen Leukocyte Esterase Rfl Urine RBC Urine WBC Ur Squamous Epith Cells Urine Bacteria Urine Casts Influenza A (RT-PCR) Influenza B (RT-PCR) RSV (RT-PCR) SARS-CoV-2 RNA (RT-PCR) 02/26/25 02/26/25 02/26/25 05:43 07:52 08:21 WBC 15.9 H RBC 3.93 L Hgb 11.7 L Hct 36.6 L MCV 93.1 MCH 29.8 MCHC 32.0 RDW 13.5 Plt Count 234 MPV 8.7 Immature Gran % (Auto) 0.9 H Neut % (Auto) 91.2 H Lymph % (Auto) 5.7 L [place] % (Auto) 2.1 L Eos % (Auto) 0.0 Baso % (Auto) 0.1 L Lymph # (Auto) 0.90 [place] # (Auto) 0.3 Eos # (Auto) 0.0 Baso # (Auto) 0.0 Abs Immat Gran (auto) 0.14 H Absolute Neuts (auto) 14.5 H Absolute Nucleated RBC 0.000 Nucleated RBC % 0.0 PT INR APTT Puncture Site ABG pH ABG pCO2 ABG pO2 ABG PO2/FiO2 Ratio ABG HCO3 ABG O2 Saturation ABG O2 Content ABG Base Excess A-a Gradient Oxyhemoglobin Total Hemoglobin O2 Delivery Device O2 Liters/Min FiO2 Sodium 139 Potassium 3.9 Chloride 103 Carbon Dioxide 30 Anion Gap 6 BUN 9 Creatinine 0.41 L Estim Creat Clear Calc 93 Estimated GFR > 60 Glucose 205 H POC Capillary Glucose 213 H Hemoglobin A1c Lactic Acid 2.1 H 2.9 H Calcium 8.6 Iron TIBC % Saturation Ferritin Total Bilirubin 0.4 AST 34 ALT 38 H Alkaline Phosphatase 64 Troponin I C-Reactive Protein NT-Pro-B Natriuret Pep Total Protein 6.6 Albumin 3.8 Vitamin B12 Folate TSH (Reflex) Urine Color Urine Appearance Urine pH Ur Specific [place] Urine Protein Urine Glucose (UA) Urine Ketones Ur Blood (Man) Urine Nitrate Urine Bilirubin Urine Urobilinogen Leukocyte Esterase Rfl Urine RBC Urine WBC Ur Squamous Epith Cells Urine Bacteria Urine Casts Influenza A (RT-PCR) Influenza B (RT-PCR) RSV (RT-PCR) SARS-CoV-2 RNA (RT-PCR)
[2025-02-26] MEDS: INSULIN ASPART (*BKC) 100 UNITS/ML SUB-Q ×2 (09:12→17:59)
[2025-02-26] MEDS: levoFLOXacin 750 MG/D5W 150 ML 750 MG/150 ML BAG 100 MG IVPB (09:14)
[2025-02-26] MEDS: ENOXAPARIN 40 MG/0.4 ML SYRINGE SUB-Q (09:17)
--- NOTE | 2025-02-26 10:20 | ECHO_ITS ---
Patient Info Name: Estefany Loja Age: 74 years : 1950 Gender: Female Ht: 60 in Wt: 172 lbs BSA: 1.85 m2 HR: 75 bpm BP: 140 / 66 mmHg Heart Rhythm: Sinus Rhythm Technical Quality: Good Exam Date: 02/26/2025 11:32 AM Patient Status: I Admit Date: 02/25/2025 Exam Type: CA echo doppler color flow Complete two-dimensional, color flow and Doppler transthoracic echocardiogram is performed. Staff Referring Physician: Miguel Angel Piedra MD Special Ed Assistant: Mandy Granger Attending Provider: Teodora Lakhani Summary 1. Complete two-dimensional, color flow and Doppler transthoracic echocardiogram is performed. 2. Left ventricular chamber dimension is normal. 3. Left ventricular systolic function is normal, estimated at 60-65. 4. There is mildly increased left ventricular wall thickness. 5. The left ventricular diastolic function is grade I diastolic dysfunction. 6. Left atrial chamber dimension is mildly enlarged. 7. Right atrial chamber dimension is normal. 8. Linear artifact in the right atrium suggestive of catheter(s), pacemaker lead(s), or ICD lead(s). 9. There is mild aortic valve regurgitation. 10. There is mild mitral valve regurgitation. 11. The mitral valve has a calcified annulus. 12. There is mild tricuspid valve regurgitation. Left Ventricle Left ventricular chamber dimension is normal. Left ventricular systolic function is normal, estimated at 60-65. There is mildly increased left ventricular wall thickness. The left ventricular diastolic function is grade I diastolic dysfunction. Right Ventricle Right ventricular chamber dimension is normal. Right ventricular systolic function is normal. Left Atria Left atrial chamber dimension is mildly enlarged. Right Atria Right atrial chamber dimension is normal. Linear artifact in the right atrium suggestive of catheter(s), pacemaker lead(s), or ICD lead(s). Atrial Septum Intact interatrial septum visualized by color flow imaging. Aortic Valve The aortic valve is probable trileaflet. There is mild aortic valve sclerosis. There is no aortic valve stenosis. There is mild aortic valve regurgitation. Pulmonic Valve The pulmonic valve is normal. There is no pulmonic valve stenosis. There is trace pulmonic regurgitation. Mitral Valve The mitral valve has a calcified annulus. There is no mitral valve stenosis. There is mild mitral valve regurgitation. Tricuspid Valve The tricuspid valve leaflets are normal. There is no significant tricuspid valve stenosis. There is mild tricuspid valve regurgitation. No pulmonary hypertension, estimated pulmonary arterial systolic pressure is 26 mmHg. Pericardium/Pleural The pericardium appears normal. There is no pericardial effusion. Inferior Vena Cava Normal inferior vena cava with >50% collapse upon inspiration consistent with normal right atrial pressure, 5 mmHg. Aorta The aortic root size at the sinus of Valsalva is normal. Left Ventricular Outflow Tract Name Value Normal LVOT 2D LVOT Diameter 2.0 cm LVOT Doppler LVOT Peak Velocity 145 cm/s LVOT Peak Gradient 8 mmHg LVOT Mean Gradient 6 mmHg LVOT VTI 30 cm LVOT VTI/AV VTI Ratio 0.8 LVOT Stroke Volume 94 ml LVOT CO 7.1 l/min LVOT CI 3.8 l/min/m2 Pulmonic Valve Name Value Normal PV Doppler PV Peak Velocity 107 cm/s PV Peak Gradient 5 mmHg Mitral Valve Name Value Normal MV Diastolic Function MV E Peak Velocity 80 cm/s MV A Peak Velocity 102 cm/s MV E/A 0.8 MV Decel Time (PW) 205 ms MV Annular TDI MV E/e' (Septal) 8.6 MV E/e' (Lateral) 7.3 MV E/e' (Average) 7.9 Tricuspid Valve Name Value Normal Estimated PAP/RSVP RA Pressure 5 mmHg <=5 PA Systolic Pressure 26 mmHg <36 Aortic Valve Name Value Normal AV Doppler AV Peak Velocity 186 cm/s AV Peak Gradient 14 mmHg AV Mean Gradient 8 mmHg AV VTI 39 cm AV Area (Cont Eq VTI) 2.4 cm2 >=3.0 AV Area (Cont Eq Ludwig) 2.4 cm2 AV DI (Ludwig) 0.78 AV Regurgitation 2D LVOT Area 3.1 cm2 Ventricles Name Value Normal LV Dimensions 2D/MM IVS Diastolic Thickness (2D) 1.1 cm 0.6-1.0 LVID Diastole (2D) 3.8 cm 3.8-5.2 LVIW Diastolic Thickness (2D) 1.0 cm 0.6-0.9 LVID Systole (2D) 2.4 cm 2.2-3.5 LVOT Diameter 2.0 cm LV Mass (2D Cubed) 128.63 g 67.00-162.00 LV Mass Index (2D Cubed) 69 g/m2 43-95 Relative Wall Thickness (2D) 0.53 <=0.42 LV Fractional Shortening/Ejection Fraction 2D/MM LV Fractional Shortening (2D) 37 % 27-45 LV EF (2D Teichholz) 67 % LV Diastolic Volume (4C MOD) 120 ml LV EF (4C MOD) 64 % LV Diastolic Volume (2C MOD) 98 ml LV EF (2C MOD) 69 % LV Diastolic Volume (BP MOD) 108 ml 46-106 LV Diastolic Volume Index (BP MOD) 59 ml/m2 29-61 LV Systolic Volume (BP MOD) 36 ml 14-42 LV Systolic Volume Index (BP MOD) 20 ml/m2 8-24 LV EF (BP MOD) 66 % 54-74 LV Diastolic Length (4C) 8.3 cm LV Systolic Length (4C) 7.0 cm LV Stroke Volume (4C MOD) 77 ml Atria Name Value Normal LA Dimensions LA Volume (4C A-L) 62 ml LA Volume (BP A-L) 56 ml RA Dimensions RA Systolic Major [place] Length (4C) 5.2 cm 2.2-2.8 RA Area (4C) 13.7 cm2 <=18.0 Report Signatures
--- NOTE | 2025-02-26 10:35 | WPDGICN ---
Assessment and Plan Assessment and plan (1) Liver lesion: Code(s): K76.9 - Liver disease, unspecified Status: Acute Assessment and Plan: - The patient's admission is primarily due to smoldering diverticulitis, likely worsened by her immunosuppressive therapy with Humira. She is currently receiving appropriate intravenous antibiotics. This treatment should continue until her white blood cell count normalizes, followed by a total of 14 days of oral antibiotics after she is discharged. - The small, ill-defined lesion found in her liver's right lobe is an incidental finding and isn't concerning, as it lacks malignant features. While an MRI would be the ideal imaging method to better define this lesion, it is contraindicated due to her pacemaker. Therefore, a follow-up with serial CT scans is the best course of action. I recommend a repeat CT scan in three months, and if the lesion is stable, another scan in six months to a year. - Her dilated common bile duct is not concerning as it is not associated with jaundice or elevated liver enzymes, and is an expected finding in a patient who has had a cholecystectomy. 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 Two weeks prior, she had been treated for acute diverticulitis and received antibiotics, but her abdominal pain persisted. Her medical history includes diabetes, a pacemaker, congestive heart failure , and rheumatoid arthritis, for which she is treated with Humira and Plaquenil. The patient was referred for a consultation after a CT scan revealed a 1.5 cm hyperenhancing focus in the right lobe of her liver. The scan also noted a 1.5 cm common bile duct, and she has a history of cholecystectomy. Her lab results from today are as follows: WBC 15.9, hemoglobin 11.7, platelets 234, AST 34, ALT 38, alkaline phosphatase 64, bilirubin 0.4, and albumin 3.8. Review of Systems Review of Systems: All systems reviewed & are unremarkable except as noted in HPI and below PMFSH Past Medical History Medical History Obstructive sleep apnea COPD (chronic obstructive pulmonary disease) Chronic respiratory failure GERD (gastroesophageal reflux disease) Restless leg syndrome Hyperlipidemia Rheumatoid arthritis Hypertension Surgical History Surgical History Previous back surgery H/O cervical spine surgery History of knee replacement Family History Family History Sibling Heart attack Lung cancer Chronic obstructive pulmonary disease Mother Hypertension Father Heart attack Hypertension Throat cancer Other Acute myocardial infarction Social History Social History Smoking status: Never smoker Alcohol intake: never Drinks per week: 1 Substance use: never Substance use type: does not use Lack of Transportation: No Lack of Food: Never True Current Housing: I Have Housing Concerned About Future Housing: No Difficulty Paying Gas/Electric Bills: No Difficulty Paying for Meds: No Currently Unemployed: No Education: High School Diploma/GED Difficulty w/ Childcare or Family Care: No Gender identity (if verbalized by the patient): Female Sexual Orientation (if Verbalized by the Patient): Straight or Heterosexual Spiritual care concerns: No Meds Home Medications and Allergies Home Medications ?Medication ?Instructions ?Recorded ?Confirmed ?Type albuterol sulfate 90 mcg/actuation 2 puff inhalation Q4H PRN 05/05/20 02/25/25 History aerosol inhaler SHORTNESS OF BREATH amlodipine 5 mg tablet 5 mg PO DAILY 05/05/20 02/25/25 History atorvastatin 20 mg tablet 20 mg PO DAILY 05/05/20 02/25/25 History azelastine 137 mcg (0.1 %) nasal 137 mcg intranasal BID 05/05/20 02/25/25 History spray buspirone 10 mg tablet 10 mg PO TID 05/05/20 02/25/25 History clonazepam 0.5 mg tablet 0.5 mg PO Q12H PRN Anxiety 05/05/20 02/25/25 History escitalopram oxalate 20 mg tablet 20 mg PO DAILY 05/05/20 02/25/25 History fluticasone propionate 50 2 spray intranasal DAILY 05/05/20 02/25/25 History mcg/actuation nasal spray,suspension montelukast 10 mg tablet 10 mg PO HS 05/05/20 02/25/25 History pramipexole 1.5 mg tablet 4.5 mg PO HS 05/05/20 02/25/25 History trazodone 50 mg tablet 300 mg PO HS 05/05/20 02/25/25 History Lactobacillus reuteri 100 million 1 cell PO DAILY 05/06/20 02/25/25 History cell chewable tablet adalimumab 40 mg/0.4 mL 40 mg subcut [id number] 05/06/20 02/25/25 History subcutaneous pen kit (Humira(CF) Pen) cholecalciferol (vitamin D3) 10 10 mcg PO DAILY 05/06/20 02/25/25 History mcg (400 unit) tablet (Vitamin D3) multivitamin with minerals 1 tablet PO DAILY 05/06/20 02/25/25 History acetaminophen 500 mg tablet 500 mg PO Q6H PRN pain #30 tabs 05/10/20 02/25/25 Rx ferrous sulfate 324 mg (65 mg 324 mg PO DAILY #30 tabs 05/10/20 02/25/25 Rx iron) tablet,delayed release omeprazole 20 mg capsule,delayed 20 mg PO BID #0 caps 05/10/20 02/25/25 Rx release aspirin 81 mg tablet,delayed 81 mg PO DAILY 09/28/21 02/25/25 History release clopidogrel 75 mg tablet (Plavix) 75 mg PO DAILY 09/28/21 02/25/25 History albuterol sulfate 2.5 mg/0.5 mL 2.5 mg inhalation QID 10/10/21 02/25/25 History solution for nebulization calcium carbonate 600 mg PO DAILY 10/10/21 02/25/25 History furosemide 40 mg tablet 40 mg PO BID 10/10/21 02/25/25 History potassium chloride 20 mEq 20 meq PO DAILY 10/10/21 02/25/25 History tablet,extended release tizanidine 4 mg capsule 4 mg PO HS PRN Muscle Spasm 10/10/21 02/25/25 History ondansetron 4 mg disintegrating 4 mg PO Q8H #7 tabs 02/14/25 02/25/25 Rx tablet budesonide 160 mcg-glycopyr 9 2 inh inhalation BID 02/25/25 02/25/25 History mcg-formot 4.8 mcg/actuation HFA inhaler (Breztri Aerosphere) gentamicin 0.1 % topical ointment 1 applic topical DAILY 02/25/25 02/25/25 History miconazole nitrate 4 % (200 mg)-2 1 appful vaginal HS 02/25/25 02/25/25 History % (9 gram)vaginal,prefill appl,cream (Miconazole-3) moxifloxacin 400 mg tablet 400 mg PO DAILY 02/25/25 02/25/25 History mycophenolate mofetil 500 mg tablet 1,000 mg PO Q12H 02/25/25 02/25/25 History pantoprazole 40 mg tablet,delayed 40 mg PO DAILY 02/25/25 02/25/25 History release spironolactone 25 mg tablet 25 mg PO DAILY 02/25/25 02/25/25 History tramadol 50 mg tablet 50 mg PO BID pain 4-6 02/25/25 02/25/25 History vilazodone 10 mg tablet (Viibryd) 10 mg PO DAILY 02/25/25 02/25/25 History Allergies Allergy/AdvReac Type Severity Reaction Status Date / Time Penicillins Allergy Unknown Verified 02/25/25 14:17 scopolamine Allergy Unknown Verified 02/25/25 14:17 Sulfa (Sulfonamide Allergy Unknown Verified 02/25/25 14:17 Antibiotics) codeine AdvReac Mild Nausea Verified 02/25/25 14:17 Vital Signs Vital Signs - 24 hr 02/25/25 11:07 02/25/25 12:55 02/25/25 13:31 Temperature 98.7 F Pulse Rate 87 93 93 Respiratory Rate 18 14 20 Blood Pressure 121/66 131/63 120/75 Pulse Oximetry 98 97 97 Oxygen Delivery Oxygen Flow Rate Fraction of Inspired Oxygen 02/25/25 14:16 02/25/25 14:16 02/25/25 16:00 Temperature 97.1 F L 97.6 F Pulse Rate 89 92 Respiratory Rate 20 20 Blood Pressure 130/68 134/70 Pulse Oximetry 96 97 98 Oxygen Delivery Nasal Cannula Oxygen Flow Rate 5 Fraction of Inspired Oxygen 02/25/25 18:22 02/25/25 18:25 02/25/25 18:31 Temperature Pulse Rate 96 91 Respiratory Rate 19 19 Blood Pressure Pulse Oximetry 92 Oxygen Delivery Nasal Cannula Oxygen Flow Rate 3 Fraction of Inspired Oxygen 32 02/25/25 20:20 02/25/25 20:20 02/25/25 20:24 Temperature Pulse Rate 98 93 Respiratory Rate 20 20 Blood Pressure Pulse Oximetry 95 Oxygen Delivery Nasal Cannula Oxygen Flow Rate 3 Fraction of Inspired Oxygen 02/25/25 20:43 02/25/25 21:15 02/26/25 01:16 Temperature 98.3 F Pulse Rate 94 85 Respiratory Rate 20 28 H Blood Pressure 127/72 Pulse Oximetry 93 99 93 Oxygen Delivery Nasal Cannula Autopap Oxygen Flow Rate 5 Fraction of Inspired Oxygen 02/26/25 01:16 02/26/25 01:27 02/26/25 06:00 Temperature 97.8 F Pulse Rate 85 92 95 Respiratory Rate 28 H 28 H 20 Blood Pressure 140/66 Pulse Oximetry 96 Oxygen Delivery Oxygen Flow Rate Fraction of Inspired Oxygen 02/26/25 08:00 02/26/25 08:50 02/26/25 08:55 Temperature Pulse Rate 93 72 Respiratory Rate 21 H 20 Blood Pressure Pulse Oximetry 96 Oxygen Delivery Nasal Cannula Oxygen Flow Rate 5 Fraction of Inspired Oxygen Exam Narrative: Physical examination deferred, patient was in the shower. Results Labs 02/26/25 05:43 02/26/25 05:43 Labs: Short CBC 02/25/25 02/26/25 Range/Units 11:03 05:43 WBC 13.1 H 15.9 H (4.5-10.0) K/mm3 Hgb 11.5 L 11.7 L (12.0-15.0) g/dL Hct 37.2 36.6 L (37.0-47.0) % Plt Count 238 234 (150-375) k/mm3 BMP 02/25/25 02/26/25 11:03 05:43 Sodium 139 139 Potassium 3.4 3.9 Chloride 101 103 Carbon Dioxide 31 H 30 BUN 13 D 9 Creatinine 0.47 L 0.41 L Glucose 147 H 205 H Calcium 8.6 8.6 Cardiac Enzymes 02/25/25 Range/Units 11:03 Troponin I < 0.012 (0.000-0.034) ng/mL Liver Function 02/25/25 02/26/25 Range/Units 11:03 05:43 Total Bilirubin 0.3 0.4 (0.2-1.3) mg/dL AST 38 H 34 (14-36) U/L ALT 41 H 38 H (6-35) U/L Alkaline Phosphatase 88 64 (38-126) U/L Albumin 3.9 3.8 (3.5-5.1) g/dL Urine 02/25/25 Range/Units 11:22 Urine Color Yellow (Yellow) Urine Appearance Clear (Clear) Urine pH 5.5 (5.0-9.0) Ur Specific [place] 1.034 (1.001-1.035) Urine Protein 1+ H (Negative) mg/dL Urine Glucose (UA) Negative (Negative) mg/dL
[2025-02-26] MEDS: PANTOPRAZOLE 40 MG TABLET PO (11:50)
[2025-02-26] MEDS: SODIUM CHLORIDE 0.9% IV 1,000 ML 60 ML IV CONT ×2 (11:50→22:05)
[2025-02-26] MEDS: FUROSEMIDE INJ 40 MG/4 ML VIAL IV PUSH (11:50)
[2025-02-26] MEDS: IRON SUCROSE COMPLEX 200 MG, IRON SUCROSE COMPLEX 100 MG in SODIUM CHLORIDE 0.9% IV 250 ML 176.67 MG IVPB (11:51)
[2025-02-26] MEDS: PRAMIPEXOLE 1 MG TABLET 4 MG PO (21:58)
[2025-02-26] MEDS: PRAMIPEXOLE 0.5 MG TABLET PO (21:59)
[2025-02-26] MEDS: SENNA/DOCUSATE SODIUM TABLET 1 TAB PO (21:59)
[2025-02-26] MEDS: TIZANIDINE HCL 4 MG TABLET PO (21:59)
[2025-02-26] MEDS: MONTELUKAST SODIUM 10 MG TABLET PO (21:59)
[2025-02-26] MEDS: ACETAMINOPHEN 325 MG TABLET 650 MG PO (22:01)
[2025-02-26] MEDS: INSULIN GLARGINE (*BKC) 100 UNITS/ML 16 UNITS SUB-Q (22:10)
[2025-02-27] VITALS (13 sets, daily range): BP systolic 111–143; BP diastolic 59–74; PULSE 72–94; RESP 16–21; TEMP 36.2–36.9; O2SAT 95–100
[2025-02-27] MEDS: IPRATROPIUM 0.5 MG/ALBUTEROL SULFATE 2.5 MG AMPUL.NEB 3 ML INHALATION ×4 (02:24→20:08)
[2025-02-27] MEDS: metroNIDAZOLE 500 MG/ISO 100ML 500 MG/100 ML BAG 100 MG IVPB ×3 (05:10→22:03)
[2025-02-27 05:27] LABS: Hematocrit 33.3 % (37.0-47.0); Hemoglobin 10.3 g/dL (12.0-15.0); Mean Corpuscular HGB Conc 30.9 g/dl (32-36); Mean Corpuscular Hemoglobin 29.1 pg (26-34); Mean Corpuscular Volume 94.1 fl (80-100); Platelet Count Result 232 k/mm3 (150-375); Red Blood Count 3.54 M/mm3 (4.2-5.4); White Blood Count 17.2 K/mm3 (4.5-10.0)
[2025-02-27 06:01] LABS: Alanine Aminotransferase 29 U/L (6-35); Albumin Level 3.2 g/dL (3.5-5.1); Alkaline Phosphatase 57 U/L (38-126); Anion Gap 2 mmol/L (4-12); Aspartate Amino Transferase 29 U/L (14-36); Bilirubin,Total 0.3 mg/dL (0.2-1.3); Blood Urea Nitrogen 10 mg/dL (7-17); Calcium 8.1 mg/dL (8.4-10.2); Carbon Dioxide 31 mmol/L (22-30); Chloride 104 mmol/L (98-107); Estimated CRCL calculation 84 ml/min; Estimated Glomerular Filt Rate > 60; Glucose 122 mg/dL (65-110); NT Pro B Type Natriuretic Pept 270 pg/mL (19.9-100); Potassium 2.8 mmol/L (3.4-5.0); Sodium 137 mmol/L (137-145); Total Protein 5.7 g/dL (6.3-8.2)
[2025-02-27 06:05] LABS: Procalcitonin < 0.0 ng/mL
[2025-02-27 06:36] LABS: Magnesium 1.9 mg/dL (1.6-2.3)
[2025-02-27] MEDS: POTASSIUM CHLORIDE 20 MEQ PACKET (FOR LIQUID) 40 MEQ PO ×3 (06:37→18:09)
--- NOTE | 2025-02-27 09:50 | P.PNIM_ITS ---
Progress Note: A&P Assessment and Plan (1) Diverticulitis: Code(s): K57.92 - Diverticulitis of intestine, part unspecified, without perforation or abscess without bleeding Status: Acute Assessment and Plan: * Persistence is worrisome, consider due to immunosuppression vs structural lesion, no evidence for abscess by imaging * Last colonoscopy about 3 years ago with polypectomies that were benign by history * Continue Levaquin and metronidazole for 2 weeks (started 02/24/25) and do not resume immunosuppressive medication until antibiotics are completed * 02/26/[address] [facility], GI consultation noted * 02/27/2025 WBC increased to 17.2, likely related to steroids as she is clinically improving, CRP ordered as surrogate marker of progress (2) Pneumonia: Code(s): J18.9 - Pneumonia, unspecified organism Status: Acute Assessment and Plan: * LLL by CT * Continue Levaquin, prednisone (begun 02/25/2025) * 02/27/2025 Clnically improved (3) COPD (chronic obstructive pulmonary disease): Qualifiers: COPD type: unspecified COPD Qualified Code(s): J44.9 - Chronic obstructive pulmonary disease, unspecified Code(s): J44.9 - Chronic obstructive pulmonary disease, unspecified Status: Chronic Assessment and Plan: * She likely has an element of interstitial lung disease related to her rheumatoid arthritis as well as restrictive lung disease related to her body habitus * Dyspnea is worsened likely due to acute infection possible pneumonia * With history of increased edema and orthopnea and prior history of congestive heart failure consider CHF exacerbation as well perhaps related to recent infections and fluid loading while hospitalized * 02/26/2025 Continue Levaquin, prednisone; add one dose of IV furosemide; echo and BNP returned at 270 on 02/27 * 02/27/2025 Clinically improving, reduced prednisone from 50 mg to 30 mg daily (4) Chronic respiratory failure: Qualifiers: Respiratory failure complication: unspecified whether with hypoxia or hypercapnia Qualified Code(s): J96.10 - Chronic respiratory failure, unspecified whether with hypoxia or hypercapnia Code(s): J96.10 - Chronic respiratory failure, unspecified whether with hypoxia or hypercapnia Status: Chronic Assessment and Plan: * Continue oxygen 5 LPM (5) Obstructive sleep apnea: Code(s): G47.33 - Obstructive sleep apnea (adult) (pediatric) Status: Chronic Assessment and Plan: * Continue BiPAP while sleeping (6) Pacemaker: Code(s): Z95.0 - Presence of cardiac pacemaker Status: Acute Assessment and Plan: * Site without erythema or increased warmth (7) Hypertension: Qualifiers: Hypertension type: unspecified Qualified Code(s): I10 - Essential (primary) hypertension Code(s): I10 - Essential (primary) hypertension Status: Chronic Assessment and Plan: * Continue amlodipine (8) Rheumatoid arthritis: Qualifiers: Rheumatoid arthritis location: unspecified site Rheumatoid factor presence: unspecified presence Qualified Code(s): M06.9 - Rheumatoid arthritis, unspecified Code(s): M06.9 - Rheumatoid arthritis, unspecified Status: Acute Assessment and Plan: * Hold immunosuppressive therapy while treating infection (9) Type 2 diabetes mellitus with unspecified complications: Code(s): E11.8 - Type 2 diabetes mellitus with unspecified complications Status: Acute Assessment and Plan: * Hemoglobin A1c 7.2% * Receiving no outpatient therapy (new dx) * Basal and sliding scale insulin ordered * 02/27/2025 FBS 122, diabetic consistent carb diet ordered (10) Iron (Fe) deficiency anemia: Code(s): D50.9 - Iron deficiency anemia, unspecified Status: Acute Assessment and Plan: * Chronic since teenage years * Last colonoscopy approximately 3 years ago with multiple polypectomies per history * Last EGD about 6 years ago was WNL per history * 02/26/2025 Iron sucrose 300 mg IV x 1 (11) Liver lesion: Code(s): K76.9 - Liver disease, unspecified Status: Acute Assessment and Plan: * 02/14 interpreted as 2.8 cm cyst, 02/25 as ill defined 1.5 cm mass * 02/26 ordered U/s RUQ for further clarification * 02/27/2025 U/s done 02/26 but not yet interpreted (12) Sepsis: Code(s): A41.9 - Sepsis, unspecified organism Status: Acute Assessment and Plan: * Supported by leukocytosis, tachycardia at admission, source of infection, lactic acidosis * Resolved (13) Venous stasis dermatitis of both lower extremities: Code(s): I87.2 - Venous insufficiency (chronic) (peripheral) Status: Acute Assessment and Plan: * Worsened per history (14) Protein calorie malnutrition: Code(s): E46 - Unspecified protein-calorie malnutrition Status: Acute Assessment and Plan: * 02/27/2025 Albumin 3.2, encouraged PO intake (15) Grade I diastolic dysfunction: Code(s): I51.89 - Other ill-defined heart diseases Status: Acute Assessment and Plan: * 02/26/2025 Echo with EF 60-65%, grade I diastolic dysfunction, mild AR, mild MR, MAC Subjective Date/time seen: 02/27/25 09:50 Interval history: Feeling much better. Mild LLQ pain. Cough and sob improved. Tolerated diet. Bowels moved this AM. No bleeding. Moderate low to mid back pain (chronic). Denied pains other than back and LLQ. Review of Systems Review of Systems: All systems reviewed & are unremarkable except as noted in HPI and below Exam Narrative: HEENT: PERRL, sclerae nonicteric, pharyngeal mucosa pink and intact NECK: No JVD, adenopathy, or thyromegaly CHEST: Increased AP diameter, mildly tachypneic, diminished slightly coarse breath sounds throughout without wheezes or crackles HEART: NL S1/S2, regular, no murmur ABDOMEN: BS+, soft, tender LLQ without rebound or guarding, no palpable mass EXTREMITIES: No edema, confluent dark brown macular pigmentation of legs NEUROLOGIC: CN intact and symmetric to inspection, tone and strength symmetric to inspection MUSCULOSKELETAL: Bony enlargement of MCP and PIP joints of hands, bilateral bunions with lateral deviation of toes PSYCH: Alert. Oriented to person, place, and time Objective Data Vital Signs Vital Signs: Vital Signs - 24 hr 02/26/25 13:05 02/26/25 13:10 02/26/25 14:00 Temperature 98.1 F Pulse Rate 97 97 95 Respiratory Rate 18 18 22 H Blood Pressure 127/60 Pulse Oximetry 95 Oxygen Delivery Oxygen Flow Rate 02/26/25 21:47 02/26/25 21:51 02/26/25 21:52 Temperature Pulse Rate 93 Respiratory Rate 18 Blood Pressure Pulse Oximetry 98 96 Oxygen Delivery Autopap Nasal Cannula Oxygen Flow Rate 3 02/26/25 21:52 02/26/25 21:57 02/27/25 01:19 Temperature 98.6 F Pulse Rate 92 93 Respiratory Rate 20 18 21 H Blood Pressure 123/64 Pulse Oximetry 98 Oxygen Delivery Autopap Oxygen Flow Rate 02/27/25 02:24 02/27/25 02:24 02/27/25 02:34 Temperature Pulse Rate 93 93 Respiratory Rate 18 21 H 18 Blood Pressure Pulse Oximetry Oxygen Delivery Autopap Oxygen Flow Rate 02/27/25 06:00 02/27/25 07:26 Temperature 98.4 F Pulse Rate 72 88 Respiratory Rate 16 18 Blood Pressure 111/69 Pulse Oximetry 95 Oxygen Delivery Oxygen Flow Rate Intake/Output Intake/Output: Intake & Output 02/24/25 02/25/25 02/26/25 02/27/25 23:59 23:59 23:59 23:59 Intake Total 2210 2995 520 Output Total 100 Balance 2110 2995 520 Meds/Results Medications: Active Medications Generic Name Dose Route Start Last Admin Trade Name Freq PRN Reason Stop Dose Admin Acetaminophen 650 mg 02/25/25 13:11 02/26/25 22:01 Acetaminophen 325 Mg Tablet PO 650 mg Q4H PRN Administration Mild Pain (1-3) or Fever Albuterol/Ipratropium 3 ml 02/25/25 20:00 02/27/25 07:22 Ipratropium 0.5 Mg/Albuterol Sulfate 2.5 Mg Ampul.Neb 3 Ml INHALATION 3 ml Q6HRT SILAS Administration Albuterol/Ipratropium 3 ml 02/25/25 18:04 02/25/25 18:19 Ipratropium 0.5 Mg/Albuterol Sulfate 2.5 Mg Ampul.Neb 3 Ml INHALATION 3 ml Q6HRT PRN Administration shortness of breath Amlodipine Besylate 5 mg 02/26/25 09:00 02/26/25 08:55 Amlodipine Besylate 5 Mg Tablet PO 5 mg DAILY SILAS Administration Aspirin 81 mg 02/26/25 09:00 02/26/25 08:55 Aspirin 81 Mg Enteric Tablet PO 81 mg DAILY SILAS Administration Atorvastatin Calcium 20 mg 02/26/25 09:00 02/26/25 08:55 Atorvastatin 20 Mg Tablet PO 20 mg DAILY SILAS Administration Buspirone HCl 10 mg 02/25/25 20:40 02/26/25 16:14 Buspirone Hcl 10 Mg Tablet PO 10 mg TID SILAS Administration Clonazepam 0.5 mg 02/25/25 20:35 02/25/25 22:00 Clonazepam (*Crx) 0.5 Mg Tablet PO 0.5 mg Q12H PRN Administration Anxiety Clopidogrel Bisulfate 75 mg 02/26/25 09:00 02/26/25 08:55 Clopidogrel Bisulfate 75 Mg Tablet PO 75 mg DAILY SILAS Administration Dextrose 12.5 gm 02/25/25 21:47 Dextrose 50% 25 Gm/50 Ml Syringe IV PUSH PRN PRN Hypoglycemia Protocol Enoxaparin Sodium 40 mg 02/26/25 09:00 02/26/25 09:17 Enoxaparin 40 Mg/0.4 Ml Syringe SUB-Q 40 mg DAILY SILAS Administration Escitalopram Oxalate 20 mg 02/26/25 09:00 02/26/25 08:54 Escitalopram Oxalate 10 Mg Tablet PO 20 mg DAILY SILAS Administration Furosemide 40 mg 02/26/25 09:00 02/26/25 16:14 Furosemide 40 Mg Tablet PO 40 mg BID SILAS Administration Glucagon 1 mg 02/25/25 21:47 Glucagon For Inj 1 Mg Vial IM PRN PRN Hypoglycemia Protocol Glucose 15 gm 02/25/25 21:47 Glucose Oral Gel 15 Gm Of Glucse In 37.5 Gm Tube PO PRN PRN Hypoglycemia Protocol Guaifenesin 1,200 mg 02/25/25 21:00 02/26/25 22:00 Guaifenesin 12 Hr 600 Mg Tabcr PO 1,200 mg Q12HR SILSA Administration Levofloxacin/Dextrose 750 mg in 150 mls @ 100 mls/hr 02/25/25 12:55 02/26/25 10:44 Levaquin 750 Mg/D5w 150 Ml IVPB Infused QAM SILAS Infusion Metronidazole 500 mg in 100 mls @ 100 mls/hr 02/25/25 14:00 02/27/25 06:10 Flagyl 500 Mg/Iso Soln 100 Ml IVPB Infused Q8H SILAS Infusion Dextrose 1,000 mls @ 100 mls/hr 02/25/25 21:47 Dextrose 5% 1,000 Ml IVPB PRN PRN Hypoglycemia Protocol Insulin Aspart 2 - 5 units 02/26/25 08:00 02/26/25 17:59 Insulin Aspart (*Bkc) 100 Units/Ml SUB-Q 3 units TIDWM SILAS Administration Protocol Insulin Glargine 16 units 02/26/25 21:00 02/26/25 22:10 Insulin Glargine (*Bkc) 100 Units/Ml 0.2 units/kg (16 units) 16 units SUB-Q Administration HS SILAS Montelukast Sodium 10 mg 02/25/25 21:00 02/26/25 21:59 Montelukast Sodium 10 Mg Tablet PO 10 mg HS SILAS Administration Mycophenolate Mofetil 1,000 mg 02/25/25 21:00 02/26/25 08:54 Mycophenolate Mofetil 250 Mg Capsule PO 1,000 mg On Hold: 02/26/25 09:05 Q12H SILAS Administration Pantoprazole Sodium 40 mg 02/26/25 09:15 02/26/25 11:50 Pantoprazole 40 Mg Tablet PO 40 mg DAILY SILAS Administration Perflutren Lipid Microsphere 0 ml 02/26/25 10:19 Perflutren Lipid Microspheres 1.5 Ml Vial Diluted To 10 Ml Total Volume IV PUSH 03/01/25 10:20 ONCE PRN adequate visualization Protocol Polyethylene Glycol 17 gm 02/26/25 09:00 02/26/25 08:54 Polyethylene Glycol 3350 17 Gm Powd.Pack PO 17 gm QAM SILAS Administration Pramipexole Dihydrochloride 4 mg 02/25/25 21:00 02/26/25 21:58 Pramipexole 1 Mg Tablet PO 4 mg HS SILAS Administration Pramipexole Dihydrochloride 0.5 mg 02/25/25 21:00 02/26/25 21:59 Pramipexole 0.5 Mg Tablet PO 0.5 mg HS SILAS Administration Prednisone 30 mg 02/28/25 08:00 Prednisone 10 Mg Tablet PO 03/05/25 07:59 DAILY@0800 SILAS Senna/Docusate Sodium 1 tab 02/25/25 21:00 02/26/25 21:59 Senna/Docusate Sodium Tablet PO 1 tab HS SILAS Administration Spironolactone 25 mg 02/26/25 09:00 02/26/25 08:55 Spironolactone 25 Mg Tablet PO 25 mg DAILY SILAS Administration Tizanidine HCl 4 mg 02/25/25 21:05 02/26/25 21:59 Tizanidine Hcl 4 Mg Tablet PO 4 mg HS PRN Administration Muscle Spasm Tramadol HCl 50 mg 02/26/25 09:15 02/26/25 21:59 Tramadol Hcl (*Crx) 50 Mg Tablet PO 50 mg BID PRN Administration pain 4-6 Trazodone HCl 50 mg 02/25/25 22:33 02/26/25 22:00 Trazodone Hcl 50 Mg Tablet PO 50 mg HS PRN Administration Insomnia Radiology Results: ITS Impressions Abdomen/Pelvis CT 02/25/25 11:46 IMPRESSION: 1. Mild diverticulitis along the left sigmoid colon. 2. Indeterminate 1.5 cm hyperenhancing focus in the right hepatic lobe which could relate to transient hepatic attenuation difference or neoplasm. Recommend follow-up pre and postcontrast MRI for further evaluation when clinically appropriate. 3. Dilation the common bile duct likely related to prior cholecystectomy. Correlate with liver function tests. If clinically indicated this could be further evaluated with MRI/MRCP. Chest X-Ray 02/25/25 12:20 IMPRESSION: 1: Small interstitial opacities in the visualized lung herrmann. Differential includes chronic interstitial changes, interstitial edema or interstitial pneumonia. 2. Lung volumes are low. If symptoms persist or worsen, consider a short-term follow-up study or additional imaging for further assessment. Labs Labs: Laboratory Results - last 24 hr 02/26/25 02/26/25 02/26/25 16:01 17:43 22:09 WBC RBC Hgb Hct MCV MCH MCHC RDW Plt Count MPV Sodium Potassium Chloride Carbon Dioxide Anion Gap BUN Creatinine Estim Creat Clear Calc Estimated GFR Glucose POC Capillary Glucose 208 H 263 H 110 H Lactic Acid Calcium Phosphorus Magnesium Total Bilirubin AST ALT Alkaline Phosphatase NT-Pro-B Natriuret Pep Total Protein Albumin Procalcitonin 02/27/25 02/27/25 05:22 08:03 WBC 17.2 H RBC 3.54 L Hgb 10.3 L Hct 33.3 L MCV 94.1 MCH 29.1 MCHC 30.9 L RDW 13.7 Plt Count 232 MPV 8.5 Sodium 137 Potassium 2.8 L* Chloride 104 Carbon Dioxide 31 H Anion Gap 2 L BUN 10 Creatinine 0.46 L Estim Creat Clear Calc 84 Estimated GFR > 60 Glucose 122 H POC Capillary Glucose 105 Lactic Acid 1.0 Calcium 8.1 L Phosphorus 2.5 Magnesium 1.9 Total Bilirubin 0.3 AST 29 ALT 29 Alkaline Phosphatase 57 NT-Pro-B Natriuret Pep 270 H Total Protein 5.7 L Albumin 3.2 L Procalcitonin < 0.0
[2025-02-27] MEDS: levoFLOXacin 750 MG/D5W 150 ML 750 MG/150 ML BAG 100 MG IVPB (09:56)
[2025-02-27] MEDS: ESCITALOPRAM OXALATE 10 MG TABLET 20 MG PO (09:58)
[2025-02-27] MEDS: ATORVASTATIN 20 MG TABLET PO (09:58)
[2025-02-27] MEDS: CLOPIDOGREL BISULFATE 75 MG TABLET PO (09:59)
[2025-02-27] MEDS: ASPIRIN 81 MG ENTERIC TABLET PO (09:59)
[2025-02-27] MEDS: FUROSEMIDE 40 MG TABLET PO ×2 (09:59→17:06)
[2025-02-27] MEDS: guaiFENesin 12 HR 600 MG TABCR 1200 MG PO ×2 (09:59→22:13)
[2025-02-27] MEDS: PANTOPRAZOLE 40 MG TABLET PO (09:59)
[2025-02-27] MEDS: SPIRONOLACTONE 25 MG TABLET PO (09:59)
[2025-02-27] MEDS: ENOXAPARIN 40 MG/0.4 ML SYRINGE SUB-Q (09:59)
[2025-02-27] MEDS: INSULIN ASPART (*BKC) 100 UNITS/ML SUB-Q (13:39)
[2025-02-27 17:28] LABS: Anion Gap 4 mmol/L (4-12); Blood Urea Nitrogen 8 mg/dL (7-17); Calcium 8.3 mg/dL (8.4-10.2); Carbon Dioxide 31 mmol/L (22-30); Chloride 105 mmol/L (98-107); Estimated CRCL calculation 86 ml/min; Estimated Glomerular Filt Rate > 60; Glucose 95 mg/dL (65-110); Potassium 3.2 mmol/L (3.4-5.0); Sodium 140 mmol/L (137-145)
[2025-02-27] MEDS: traMADol HCL (*CRX) 50 MG TABLET PO ×2 (18:10→22:13)
[2025-02-27] MEDS: PRAMIPEXOLE 1 MG TABLET 4 MG PO (22:12)
[2025-02-27] MEDS: MONTELUKAST SODIUM 10 MG TABLET PO (22:12)
[2025-02-27] MEDS: PRAMIPEXOLE 0.5 MG TABLET PO (22:12)
[2025-02-27] MEDS: SENNA/DOCUSATE SODIUM TABLET 1 TAB PO (22:12)
[2025-02-27] MEDS: clonazePAM (*CRX) 0.5 MG TABLET PO (22:13)
[2025-02-27] MEDS: TIZANIDINE HCL 4 MG TABLET PO (22:13)
[2025-02-27] MEDS: ACETAMINOPHEN 325 MG TABLET 650 MG PO (22:18)
[2025-02-27] MEDS: INSULIN GLARGINE (*BKC) 100 UNITS/ML 16 UNITS SUB-Q (22:21)
[2025-02-28] VITALS (14 sets, daily range): BP systolic 109–128; BP diastolic 58–67; PULSE 77–115; RESP 15–20; TEMP 35.9–36.9; O2SAT 97–98
[2025-02-28] MEDS: IPRATROPIUM 0.5 MG/ALBUTEROL SULFATE 2.5 MG AMPUL.NEB 3 ML INHALATION ×4 (02:25→20:39)
[2025-02-28] MEDS: metroNIDAZOLE 500 MG/ISO 100ML 500 MG/100 ML BAG 100 MG IVPB ×3 (06:17→21:55)
[2025-02-28 06:38] LABS: Hematocrit 35.4 % (37.0-47.0); Hemoglobin 11.1 g/dL (12.0-15.0); Mean Corpuscular HGB Conc 31.4 g/dl (32-36); Mean Corpuscular Hemoglobin 29.3 pg (26-34); Mean Corpuscular Volume 93.4 fl (80-100); Platelet Count Result 246 k/mm3 (150-375); Red Blood Count 3.79 M/mm3 (4.2-5.4); White Blood Count 11.4 K/mm3 (4.5-10.0)
[2025-02-28 07:05] LABS: Anion Gap 2 mmol/L (4-12); Blood Urea Nitrogen 7 mg/dL (7-17); CRP < 0.5 mg/dL (<1.0); Calcium 8.5 mg/dL (8.4-10.2); Carbon Dioxide 32 mmol/L (22-30); Chloride 105 mmol/L (98-107); Estimated CRCL calculation 84 ml/min; Estimated Glomerular Filt Rate > 60; Glucose 86 mg/dL (65-110); Potassium 3.4 mmol/L (3.4-5.0); Sodium 139 mmol/L (137-145)
[2025-02-28] MEDS: ATORVASTATIN 20 MG TABLET PO (09:11)
[2025-02-28] MEDS: ASPIRIN 81 MG ENTERIC TABLET PO (09:11)
[2025-02-28] MEDS: ESCITALOPRAM OXALATE 10 MG TABLET 20 MG PO (09:12)
[2025-02-28] MEDS: guaiFENesin 12 HR 600 MG TABCR 1200 MG PO ×2 (09:12→22:01)
[2025-02-28] MEDS: SPIRONOLACTONE 25 MG TABLET PO (09:12)
[2025-02-28] MEDS: FUROSEMIDE 40 MG TABLET PO ×2 (09:12→17:04)
[2025-02-28] MEDS: CLOPIDOGREL BISULFATE 75 MG TABLET PO (09:12)
[2025-02-28] MEDS: PANTOPRAZOLE 40 MG TABLET PO (09:12)
[2025-02-28] MEDS: ENOXAPARIN 40 MG/0.4 ML SYRINGE SUB-Q (09:13)
[2025-02-28] MEDS: levoFLOXacin 750 MG/D5W 150 ML 750 MG/150 ML BAG 100 MG IVPB (09:13)
[2025-02-28] MEDS: POTASSIUM CHLORIDE 20 MEQ PACKET (FOR LIQUID) 40 MEQ PO (09:20)
--- NOTE | 2025-02-28 09:24 | P.CDI_ITS ---
CDI Query Clarification Request 1)Please specify acuity of heart failure if known. * Acute * Chronic * Acute on Chronic * Unknown The medical chart reflects the following; Hospitalist documented: (2) Pneumonia: Code(s): J18.9 - Pneumonia, unspecified organism Status: Acute Assessment and Plan: * LLL by CT * Continue Levaquin, prednisone (begun 02/25/2025) * 02/27/2025 Clnically improved(3) COPD (chronic obstructive pulmonary disease): Qualifiers: COPD type: unspecified COPD Qualified Code(s): J44.9 - Chronic obstructive pulmonary disease, unspecified Code(s): J44.9 - Chronic obstructive pulmonary disease, unspecified Status: Chronic Assessment and Plan: * She likely has an element of interstitial lung disease related to her rheumatoid arthritis as well as restrictive lung disease related to her body habitus * Dyspnea is worsened likely due to acute infection possible pneumonia * With history of increased edema and orthopnea and prior history of congestive heart failure consider CHF exacerbation as well perhaps related to recent infections and fluid loading while hospitalized * 02/26/2025 Continue Levaquin, prednisone; add one dose of IV furosemide; echo and BNP returned at 270 on 02/27 * 02/27/2025 Clinically improving, reduced prednisone from 50 mg to 30 mg daily(4) Chronic respiratory failure: Qualifiers: Respiratory failure complication: unspecified whether with hypoxia or hypercapnia Qualified Code(s): J96.10 - Chronic respiratory failure, unspecified whether with hypoxia or hypercapnia Code(s): J96.10 - Chronic respiratory failure, unspecified whether with hypoxia or hypercapnia Status: Chronic Assessment and Plan: * Continue oxygen 5 LPM(5) Obstructive sleep apnea: Code(s): G47.33 - Obstructive sleep apnea (adult) (pediatric) Status: Chronic Assessment and Plan: * Continue BiPAP while sleeping(6) Pacemaker: E46 - Unspecified protein-calorie malnutrition Status: Acute Assessment and Plan: * 02/27/2025 Albumin 3.2, encouraged PO intake(15) Grade I diastolic dysfunction: Code(s): I51.89 - Other ill-defined heart diseases Status: Acute Assessment and Plan: * 02/26/2025 Echo with EF 60-65%, grade I diastolic dysfunction, mild AR, mild MR, MAC CXR: IMPRESSION: 1: Small interstitial opacities in the visualized lung herrmann. Differential includes chronic interstitial changes, interstitial edema or interstitial pneumonia. 2. Lung volumes are low. If symptoms persist or worsen, consider a short-term follow-up study or additional imaging for further assessment. Echo: Summary 1. Complete two-dimensional, color flow and Doppler transthoracic echocardiogram is performed. 2. Left ventricular chamber dimension is normal. 3. Left ventricular systolic function is normal, estimated at 60-65. 4. There is mildly increased left ventricular wall thickness. 5. The left ventricular diastolic function is grade I diastolic dysfunction. 6. Left atrial chamber dimension is mildly enlarged. 7. Right atrial chamber dimension is normal. 8. Linear artifact in the right atrium suggestive of catheter(s), pacemaker lead(s), or ICD lead(s). 9. There is mild aortic valve regurgitation. 10. There is mild mitral valve regurgitation. 11. The mitral valve has a calcified annulus. 12. There is mild tricuspid valve regurgitation. 02/27 BNP: 270 02/27 IV lasix x1, now PO lasix <Caroline Dao RN - Last Filed: 02/28/25 09:30> Clarified Diagnosis Clarified Diagnosis: chronic <Lynne Funes MD - Last Filed: 02/28/25 12:24>
--- NOTE | 2025-02-28 12:24 | P.PNIM_ITS ---
Progress Note: A&P Assessment and Plan (1) Hypertension: Qualifiers: Hypertension type: unspecified Qualified Code(s): I10 - Essential (primary) hypertension Code(s): I10 - Essential (primary) hypertension Status: Chronic (2) Grade I diastolic dysfunction: Code(s): I51.89 - Other ill-defined heart diseases Status: Acute (3) Pacemaker: Code(s): Z95.0 - Presence of cardiac pacemaker Status: Acute (4) Type 2 diabetes mellitus with unspecified complications: Code(s): E11.8 - Type 2 diabetes mellitus with unspecified complications Status: Acute (5) Transaminitis: Code(s): R74.01 - Elevation of levels of liver transaminase levels Status: Acute (6) Liver lesion: Code(s): K76.9 - Liver disease, unspecified Status: Acute (7) Chronic respiratory failure: Qualifiers: Respiratory failure complication: unspecified whether with hypoxia or hy percapnia Qualified Code(s): J96.10 - Chronic respiratory failure, unspecified whether with hypoxia or hypercapnia Code(s): J96.10 - Chronic respiratory failure, unspecified whether with hypoxia or hypercapnia Status: Chronic Plan 74-year-old female presents the hospital shortness of breath. She was at her office when she started having rigors, the patient was unable to stand and her states that he was afraid she was going to pass out. The symptoms resolved in a few minutes. Patient was sent to the emergency room Patient states that she a had a recent bout of diverticulitis and was placed on antibiotics and is on her 2nd course.Lab work in the ED shows leukocytosis at 13.1 anemia of 11.5, ABG within normal limits, glucose of 147, AST of 38 ALT of 41 which is round baseline, C reactive protein 2.3, troponin is negative. Influenza A/B, RSV, COVID negative. Chest x-ray shows opacities edema versus pneumonia. CT abdomen pelvis show mild diverticulitis in the left sigmoid colon, 1.5 cm indeterminate lesion in the right hepatic lobe, and dilation of the common bile duct pose cholecystectomy. 1. Acute diverticulitis: Last colonoscopy 3 years ago with polypectomy, benign Plan to continue with Levaquin and Metro is not resolved for 2 weeks, was started on 02/24/2025 Not to resume immunosuppressive medications until antibiotics are completed Improving leukocytosis Appreciate GI help The small, ill-defined lesion found in her liver's right lobe is an incidental finding and isn't concerning, as it lacks malignant features. While an MRI would be the ideal imaging method to better define this lesion, it is contraindicated due to her pacemaker. Therefore, a follow-up with serial CT scans is the best course of action. GI recommends to repeat a CT scan in 3 months for the liver lesion, if the lesion is stable then repeat another scan in 6 months Await right upper quadrant ultrasound Supplement potassium 2. Chronic respiratory failure: Continue with O2 support Continue with BiPAP while sleeping Possible pneumonia On Levaquin Received 1 dose of IV Lasix, currently on oral Lasix Echocardiogram unremarkable 3. History of hypertension: Continue with Norvasc 4. Diabetes mellitus: Blood glucose checked t.i.d. a.c. and HS Continue with sliding scale insulin 5. Iron deficiency anemia: Status post IV iron 6. Code status: Full 7. DVT prophylaxis: Lovenox 8. Disposition: Anticipate discharge within next 24 hours if leukocytosis has improved Time Spent With Patient Time: 37 minutes Subjective Date/time seen: 02/28/25 12:24 Interval history: With no acute events overnight, feeling better today Review of Systems Review of Systems: All systems reviewed & are unremarkable except as noted in HPI and below Exam Narrative: HEENT: PERRL, sclerae nonicteric, pharyngeal mucosa pink and intact NECK: No JVD, adenopathy, or thyromegaly CHEST: No added sounds heard, decreased breath sounds bilaterally, baseline O2 support of 4 L HEART: NL S1/S2, regular, no murmur ABDOMEN: BS+, soft, tender LLQ without rebound or guarding, no palpable mass EXTREMITIES: No edema, confluent dark brown macular pigmentation of legs NEUROLOGIC: CN intact and symmetric to inspection, tone and strength symmetric to inspection MUSCULOSKELETAL: Bony enlargement of MCP and PIP joints of hands, bilateral bunions with lateral deviation of toes PSYCH: Alert. Oriented to person, place, and time Objective Data Vital Signs Vital Signs: Vital Signs - 24 hr 02/27/25 13:36 02/27/25 14:00 02/27/25 20:09 Temperature 97.7 F Pulse Rate 90 94 89 Respiratory Rate 18 20 18 Blood Pressure 143/74 H Pulse Oximetry 100 Oxygen Delivery Oxygen Flow Rate 02/27/25 20:16 02/27/25 20:20 02/27/25 20:36 Temperature 97.2 F L Pulse Rate 88 89 Respiratory Rate 18 16 Blood Pressure 122/59 L Pulse Oximetry 95 100 Oxygen Delivery Nasal Cannula Oxygen Flow Rate 5 02/27/25 22:00 02/28/25 00:33 02/28/25 02:25 Temperature Pulse Rate 86 Respiratory Rate 17 17 Blood Pressure Pulse Oximetry 100 Oxygen Delivery Autopap Autopap Oxygen Flow Rate 02/28/25 02:25 02/28/25 04:07 02/28/25 08:00 Temperature 98.5 F Pulse Rate 77 Respiratory Rate 17 16 Blood Pressure 126/62 Pulse Oximetry 98 98 Oxygen Delivery Autopap Autopap Oxygen Flow Rate 4 02/28/25 08:20 02/28/25 08:26 02/28/25 09:48 Temperature Pulse Rate 82 86 Respiratory Rate 17 17 Blood Pressure Pulse Oximetry Oxygen Delivery Nasal Cannula Oxygen Flow Rate 4 02/28/25 10:50 Temperature Pulse Rate Respiratory Rate Blood Pressure Pulse Oximetry Oxygen Delivery Nasal Cannula Oxygen Flow Rate 4 Intake/Output Intake/Output: Intake & Output 02/25/25 02/26/25 02/27/25 02/28/25 23:59 23:59 23:59 23:59 Intake Total 2210 2995 1590 1230 Output Total 100 Balance 2110 2995 1590 1230 Meds/Results Medications: Active Medications Generic Name Dose Route Start Last Admin Trade Name Freq PRN Reason Stop Dose Admin Acetaminophen 650 mg 02/25/25 13:11 02/27/25 22:18 Acetaminophen 325 Mg Tablet PO 650 mg Q4H PRN Administration Mild Pain (1-3) or Fever Albuterol/Ipratropium 3 ml 02/25/25 20:00 02/28/25 08:17 Ipratropium 0.5 Mg/Albuterol Sulfate 2.5 Mg Ampul.Neb 3 Ml INHALATION 3 ml Q6HRT SILAS Administration Albuterol/Ipratropium 3 ml 02/25/25 18:04 02/25/25 18:19 Ipratropium 0.5 Mg/Albuterol Sulfate 2.5 Mg Ampul.Neb 3 Ml INHALATION 3 ml Q6HRT PRN Administration shortness of breath Amlodipine Besylate 5 mg 02/26/25 09:00 02/28/25 09:11 Amlodipine Besylate 5 Mg Tablet PO 5 mg DAILY SILAS Administration Aspirin 81 mg 02/26/25 09:00 02/28/25 09:11 Aspirin 81 Mg Enteric Tablet PO 81 mg DAILY SILAS Administration Atorvastatin Calcium 20 mg 02/26/25 09:00 02/28/25 09:11 Atorvastatin 20 Mg Tablet PO 20 mg DAILY SILAS Administration Buspirone HCl 10 mg 02/25/25 20:40 02/28/25 12:16 Buspirone Hcl 10 Mg Tablet PO 10 mg TID SILAS Administration Clonazepam 0.5 mg 02/25/25 20:35 02/27/25 22:13 Clonazepam (*Crx) 0.5 Mg Tablet PO 0.5 mg Q12H PRN Administration Anxiety Clopidogrel Bisulfate 75 mg 02/26/25 09:00 02/28/25 09:12 Clopidogrel Bisulfate 75 Mg Tablet PO 75 mg DAILY SILAS Administration Dextrose 12.5 gm 02/25/25 21:47 Dextrose 50% 25 Gm/50 Ml Syringe IV PUSH PRN PRN Hypoglycemia Protocol Enoxaparin Sodium 40 mg 02/26/25 09:00 02/28/25 09:13 Enoxaparin 40 Mg/0.4 Ml Syringe SUB-Q 40 mg DAILY SILAS Administration Escitalopram Oxalate 20 mg 02/26/25 09:00 02/28/25 09:12 Escitalopram Oxalate 10 Mg Tablet PO 20 mg DAILY SILAS Administration Furosemide 40 mg 02/26/25 09:00 02/28/25 09:12 Furosemide 40 Mg Tablet PO 40 mg BID SILAS Administration Glucagon 1 mg 02/25/25 21:47 Glucagon For Inj 1 Mg Vial IM PRN PRN Hypoglycemia Protocol Glucose 15 gm 02/25/25 21:47 Glucose Oral Gel 15 Gm Of Glucse In 37.5 Gm Tube PO PRN PRN Hypoglycemia Protocol Guaifenesin 1,200 mg 02/25/25 21:00 02/28/25 09:12 Guaifenesin 12 Hr 600 Mg Tabcr PO 1,200 mg Q12HR SILAS Administration Levofloxacin/Dextrose 750 mg in 150 mls @ 100 mls/hr 02/25/25 12:55 02/28/25 09:13 Levaquin 750 Mg/D5w 150 Ml IVPB 100 mls/hr QAM SILAS Administration Metronidazole 500 mg in 100 mls @ 100 mls/hr 02/25/25 14:00 02/28/25 07:17 Flagyl 500 Mg/Iso Soln 100 Ml IVPB Infused Q8H SILAS Infusion Dextrose 1,000 mls @ 100 mls/hr 02/25/25 21:47 Dextrose 5% 1,000 Ml IVPB PRN PRN Hypoglycemia Protocol Insulin Aspart 2 - 5 units 02/26/25 08:00 02/28/25 12:15 Insulin Aspart (*Bkc) 100 Units/Ml SUB-Q Not Given TIDWM SILAS Protocol Insulin Glargine 16 units 02/26/25 21:00 02/27/25 22:21 Insulin Glargine (*Bkc) 100 Units/Ml 0.2 units/kg (16 units) 16 units SUB-Q Administration HS SILAS Montelukast Sodium 10 mg 02/25/25 21:00 02/27/25 22:12 Montelukast Sodium 10 Mg Tablet PO 10 mg HS SILAS Administration Mycophenolate Mofetil 1,000 mg 02/25/25 21:00 02/26/25 08:54 Mycophenolate Mofetil 250 Mg Capsule PO 1,000 mg On Hold: 02/26/25 09:05 Q12H SILAS Administration Pantoprazole Sodium 40 mg 02/26/25 09:15 02/28/25 09:12 Pantoprazole 40 Mg Tablet PO 40 mg DAILY SILAS Administration Perflutren Lipid Microsphere 0 ml 02/26/25 10:19 Perflutren Lipid Microspheres 1.5 Ml Vial Diluted To 10 Ml Total Volume IV PUSH 03/01/25 10:20 ONCE PRN adequate visualization Protocol Polyethylene Glycol 17 gm 02/26/25 09:00 02/28/25 09:12 Polyethylene Glycol 3350 17 Gm Powd.Pack PO 17 gm QAM SILAS Administration Pramipexole Dihydrochloride 4 mg 02/25/25 21:00 02/27/25 22:12 Pramipexole 1 Mg Tablet PO 4 mg HS SILAS Administration Pramipexole Dihydrochloride 0.5 mg 02/25/25 21:00 02/27/25 22:12 Pramipexole 0.5 Mg Tablet PO 0.5 mg HS SILAS Administration Prednisone 30 mg 02/28/25 08:00 02/28/25 09:11 Prednisone 10 Mg Tablet PO 03/05/25 07:59 30 mg DAILY@0800 SILAS Administration Senna/Docusate Sodium 1 tab 02/25/25 21:00 02/27/25 22:12 Senna/Docusate Sodium Tablet PO 1 tab HS SILAS Administration Spironolactone 25 mg 02/26/25 09:00 02/28/25 09:12 Spironolactone 25 Mg Tablet PO 25 mg DAILY SILAS Administration Tizanidine HCl 4 mg 02/25/25 21:05 02/27/25 22:13 Tizanidine Hcl 4 Mg Tablet PO 4 mg HS PRN Administration Muscle Spasm Tramadol HCl 50 mg 02/26/25 09:15 02/27/25 22:13 Tramadol Hcl (*Crx) 50 Mg Tablet PO 50 mg BID PRN Administration pain 4-6 Trazodone HCl 50 mg 02/25/25 22:33 02/26/25 22:00 Trazodone Hcl 50 Mg Tablet PO 50 mg HS PRN Administration Insomnia Radiology Results: ITS Impressions Abdomen/Pelvis CT 02/25/25 11:46 IMPRESSION: 1. Mild diverticulitis along the left sigmoid colon. 2. Indeterminate 1.5 cm hyperenhancing focus in the right hepatic lobe which could relate to transient hepatic attenuation difference or neoplasm. Recommend follow-up pre and postcontrast MRI for further evaluation when clinically appropriate. 3. Dilation the common bile duct likely related to prior cholecystectomy. Correlate with liver function tests. If clinically indicated this could be further evaluated with MRI/MRCP. Chest X-Ray 02/25/25 12:20 IMPRESSION: 1: Small interstitial opacities in the visualized lung herrmann. Differential includes chronic interstitial changes, interstitial edema or interstitial pneumonia. 2. Lung volumes are low. If symptoms persist or worsen, consider a short-term follow-up study or additional imaging for further assessment. Labs Labs: Laboratory Results - last 24 hr 02/27/25 02/27/25 02/27/25 11:06 16:46 17:03 WBC RBC Hgb Hct MCV MCH MCHC RDW Plt Count MPV Sodium 140 Potassium 3.2 L Chloride 105 Carbon Dioxide 31 H Anion Gap 4 BUN 8 Creatinine 0.45 L Estim Creat Clear Calc 86 Estimated GFR > 60 Glucose 95 POC Capillary Glucose 210 H 83 Calcium 8.3 L C-Reactive Protein 02/27/25 02/28/25 02/28/25 20:39 06:08 07:58 WBC 11.4 H RBC 3.79 L Hgb 11.1 L Hct 35.4 L MCV 93.4 MCH 29.3 MCHC 31.4 L RDW 14.1 Plt Count 246 MPV 8.5 Sodium 139 Potassium 3.4 Chloride 105 Carbon Dioxide 32 H Anion Gap 2 L BUN 7 Creatinine 0.46 L Estim Creat Clear Calc 84 Estimated GFR > 60 Glucose 86 POC Capillary Glucose 93 87 Calcium 8.5 C-Reactive Protein < 0.5 02/28/25 11:33 WBC RBC Hgb Hct MCV MCH MCHC RDW Plt Count MPV Sodium Potassium Chloride Carbon Dioxide Anion Gap BUN Creatinine Estim Creat Clear Calc Estimated GFR Glucose POC Capillary Glucose 110 H Calcium C-Reactive Protein Quality VTE Prophylaxis VTE prophylaxis: pharmacologic ordered
[2025-02-28] MEDS: clonazePAM (*CRX) 0.5 MG TABLET PO (13:22)
[2025-02-28] MEDS: INSULIN ASPART (*BKC) 100 UNITS/ML SUB-Q (17:32)
[2025-02-28] MEDS: SENNA/DOCUSATE SODIUM TABLET 1 TAB PO (21:46)
[2025-02-28] MEDS: TIZANIDINE HCL 4 MG TABLET PO (21:47)
[2025-02-28] MEDS: PRAMIPEXOLE 1 MG TABLET 4 MG PO (21:49)
[2025-02-28] MEDS: traMADol HCL (*CRX) 50 MG TABLET PO (21:50)
[2025-02-28] MEDS: PRAMIPEXOLE 0.5 MG TABLET PO (21:50)
[2025-02-28] MEDS: MONTELUKAST SODIUM 10 MG TABLET PO (21:50)
[2025-02-28] MEDS: ACETAMINOPHEN 325 MG TABLET 650 MG PO (21:51)
[2025-02-28] MEDS: INSULIN GLARGINE (*BKC) 100 UNITS/ML 16 UNITS SUB-Q (21:59)
[2025-03-01] VITALS (14 sets, daily range): BP systolic 114–127; BP diastolic 59–85; PULSE 68–115; RESP 13–20; TEMP 35.6–36.6; O2SAT 92–100
[2025-03-01] MEDS: clonazePAM (*CRX) 0.5 MG TABLET PO (01:25)
[2025-03-01] MEDS: IPRATROPIUM 0.5 MG/ALBUTEROL SULFATE 2.5 MG AMPUL.NEB 3 ML INHALATION ×4 (01:34→20:49)
[2025-03-01] MEDS: traMADol HCL (*CRX) 50 MG TABLET PO ×2 (04:43→12:45)
[2025-03-01] MEDS: metroNIDAZOLE 500 MG/ISO 100ML 500 MG/100 ML BAG 100 MG IVPB ×3 (05:02→21:23)
[2025-03-01 05:43] LABS: Hematocrit 35.9 % (37.0-47.0); Hemoglobin 11.4 g/dL (12.0-15.0); Mean Corpuscular HGB Conc 31.8 g/dl (32-36); Mean Corpuscular Hemoglobin 29.6 pg (26-34); Mean Corpuscular Volume 93.2 fl (80-100); Platelet Count Result 233 k/mm3 (150-375); Red Blood Count 3.85 M/mm3 (4.2-5.4); White Blood Count 14.2 K/mm3 (4.5-10.0)
[2025-03-01 06:06] LABS: Anion Gap 4 mmol/L (4-12); Blood Urea Nitrogen 11 mg/dL (7-17); Calcium 8.9 mg/dL (8.4-10.2); Carbon Dioxide 36 mmol/L (22-30); Chloride 97 mmol/L (98-107); Estimated CRCL calculation 73 ml/min; Estimated Glomerular Filt Rate > 60; Glucose 85 mg/dL (65-110); Potassium 3.3 mmol/L (3.4-5.0); Sodium 137 mmol/L (137-145)
--- NOTE | 2025-03-01 06:56 | PC.NURSE ---
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 Abdomen was soft, nondistended, without discomfort with palpation and has urge to pee several times throughout night. Bladder scanned at 0450, there was 188ml in bladder. Encouraged fluid intake.
[2025-03-01] MEDS: POTASSIUM CHLORIDE 20 MEQ ER TABLET 40 MEQ PO (09:04)
[2025-03-01] MEDS: ATORVASTATIN 20 MG TABLET PO (09:04)
[2025-03-01] MEDS: ASPIRIN 81 MG ENTERIC TABLET PO (09:04)
[2025-03-01] MEDS: CLOPIDOGREL BISULFATE 75 MG TABLET PO (09:05)
[2025-03-01] MEDS: ENOXAPARIN 40 MG/0.4 ML SYRINGE SUB-Q (09:05)
[2025-03-01] MEDS: FUROSEMIDE 40 MG TABLET PO ×2 (09:06→17:21)
[2025-03-01] MEDS: ESCITALOPRAM OXALATE 10 MG TABLET 20 MG PO (09:06)
[2025-03-01] MEDS: guaiFENesin 12 HR 600 MG TABCR 1200 MG PO ×2 (09:06→21:21)
[2025-03-01] MEDS: levoFLOXacin 750 MG/D5W 150 ML 750 MG/150 ML BAG 100 MG IVPB (09:07)
[2025-03-01] MEDS: SPIRONOLACTONE 25 MG TABLET PO (09:07)
[2025-03-01] MEDS: PANTOPRAZOLE 40 MG TABLET PO (09:07)
--- NOTE | 2025-03-01 12:56 | PM.IMPN ---
Progress Note: A&P Assessment and Plan (1) Hypertension: Qualifiers: Hypertension type: unspecified Qualified Code(s): I10 - Essential (primary) hypertension Code(s): I10 - Essential (primary) hypertension Status: Chronic (2) Grade I diastolic dysfunction: Code(s): I51.89 - Other ill-defined heart diseases Status: Acute (3) Pacemaker: Code(s): Z95.0 - Presence of cardiac pacemaker Status: Acute (4) Type 2 diabetes mellitus with unspecified complications: Code(s): E11.8 - Type 2 diabetes mellitus with unspecified complications Status: Acute (5) Transaminitis: Code(s): R74.01 - Elevation of levels of liver transaminase levels Status: Acute (6) Liver lesion: Code(s): K76.9 - Liver disease, unspecified Status: Acute (7) Chronic respiratory failure: Qualifiers: Respiratory failure complication: unspecified whether with hypoxia or hypercapnia Qualified Code(s): J96.10 - Chronic respiratory failure, unspecified whether with hypoxia or hypercapnia Code(s): J96.10 - Chronic respiratory failure, unspecified whether with hypoxia or hypercapnia Status: Chronic Plan 74-year-old female presents the hospital shortness of breath. She was at her office when she started having rigors, the patient was unable to stand and her states that he was afraid she was going to pass out. The symptoms resolved in a few minutes. Patient was sent to the emergency room Patient states that she a had a recent bout of diverticulitis and was placed on antibiotics and is on her 2nd course.Lab work in the ED shows leukocytosis at 13.1 anemia of 11.5, ABG within normal limits, glucose of 147, AST of 38 ALT of 41 which is round baseline, C reactive protein 2.3, troponin is negative. Influenza A/B, RSV, COVID negative. Chest x-ray shows opacities edema versus pneumonia. CT abdomen pelvis show mild diverticulitis in the left sigmoid colon, 1.5 cm indeterminate lesion in the right hepatic lobe, and dilation of the common bile duct pose cholecystectomy. 1. Acute diverticulitis: Last colonoscopy 3 years ago with polypectomy, benign Plan to continue with Levaquin and Flagyl for 2 weeks, was started on 02/24/2025 Not to resume immunosuppressive medications until antibiotics are completed Worsening leukocytosis with more left lower quadrant abdominal pain Will repeat CT abdomen and pelvis today Appreciate GI help Supplement potassium Continue with PPI 2. Chronic respiratory failure: Continue with O2 support Continue with BiPAP while sleeping Continue with DuoNebs Possible pneumonia Echocardiogram with grade 1 diastolic dysfunction On Levaquin Received 1 dose of IV Lasix, currently on oral Lasix Continue with aspirin, Plavix, statin, Lasix, Aldactone 3. History of hypertension: Continue with Norvasc 4. Diabetes mellitus: Blood glucose checked t.i.d. a.c. and HS Continue with sliding scale insulin Continue with 16 units of Lantus 5. Iron deficiency anemia: Status post IV iron 6. History of anxiety: Continue with BuSpar, Lexapro, clonazepam 7. Code status: Full 8. DVT prophylaxis: Lovenox 9. Disposition: Pending improvement Time Spent With Patient Time: 37 minutes Subjective Date/time seen: 03/01/25 12:56 Interval history: Complains of more pain in left lower quadrant today Review of Systems Review of Systems: All systems reviewed & are unremarkable except as noted in HPI and below Exam Narrative: HEENT: PERRL, sclerae nonicteric, pharyngeal mucosa pink and intact NECK: No JVD, adenopathy, or thyromegaly CHEST: No added sounds heard, decreased breath sounds bilaterally, baseline O2 support of 4 L HEART: NL S1/S2, regular, no murmur ABDOMEN: BS+, soft, tender LLQ without rebound or guarding, no palpable mass EXTREMITIES: No edema, confluent dark brown macular pigmentation of legs NEUROLOGIC: CN intact and symmetric to inspection, tone and strength symmetric to inspection MUSCULOSKELETAL: Bony enlargement of MCP and PIP joints of hands, bilateral bunions with lateral deviation of toes PSYCH: Alert. Oriented to person, place, and time Objective Data Vital Signs Vital Signs: Vital Signs - 24 hr 02/28/25 13:12 02/28/25 13:18 02/28/25 14:00 Temperature 96.7 F L Pulse Rate 110 H 115 H 78 Respiratory Rate 17 17 20 Blood Pressure 128/67 Pulse Oximetry 97 Oxygen Delivery Oxygen Flow Rate 02/28/25 20:43 02/28/25 20:52 02/28/25 20:52 Temperature Pulse Rate 88 92 Respiratory Rate 18 18 Blood Pressure Pulse Oximetry 98 Oxygen Delivery Nasal Cannula Oxygen Flow Rate 5 02/28/25 21:21 02/28/25 22:00 02/28/25 23:00 Temperature 97.3 F L Pulse Rate 90 Respiratory Rate 16 15 Blood Pressure 109/58 L Pulse Oximetry 98 98 Oxygen Delivery Autopap Autopap Oxygen Flow Rate 03/01/25 01:34 03/01/25 01:45 03/01/25 01:57 Temperature Pulse Rate 96 98 Respiratory Rate 18 18 Blood Pressure Pulse Oximetry Oxygen Delivery Autopap Oxygen Flow Rate 03/01/25 06:00 03/01/25 07:51 03/01/25 07:51 Temperature 97.8 F Pulse Rate 76 68 68 Respiratory Rate 13 18 18 Blood Pressure 124/59 L Pulse Oximetry 100 92 Oxygen Delivery Nasal Cannula Oxygen Flow Rate 4 03/01/25 08:00 03/01/25 08:03 Temperature Pulse Rate 96 Respiratory Rate 16 Blood Pressure Pulse Oximetry 93 Oxygen Delivery Nasal Cannula Oxygen Flow Rate 4 Intake/Output Intake/Output: Intake & Output 02/26/25 02/27/25 02/28/25 03/01/25 23:59 23:59 23:59 23:59 Intake Total 2995 1590 2056 740 Balance 2995 1590 2056 740 Meds/Results Medications: Active Medications Generic Name Dose Route Start Last Admin Trade Name Freq PRN Reason Stop Dose Admin Acetaminophen 650 mg 02/25/25 13:11 02/28/25 21:51 Acetaminophen 325 Mg Tablet PO 650 mg Q4H PRN Administration Mild Pain (1-3) or Fever Albuterol/Ipratropium 3 ml 02/25/25 20:00 03/01/25 07:47 Ipratropium 0.5 Mg/Albuterol Sulfate 2.5 Mg Ampul.Neb 3 Ml INHALATION 3 ml Q6HRT SILAS Administration Albuterol/Ipratropium 3 ml 02/25/25 18:04 02/25/25 18:19 Ipratropium 0.5 Mg/Albuterol Sulfate 2.5 Mg Ampul.Neb 3 Ml INHALATION 3 ml Q6HRT PRN Administration shortness of breath Amlodipine Besylate 5 mg 02/26/25 09:00 03/01/25 09:04 Amlodipine Besylate 5 Mg Tablet PO 5 mg DAILY SILAS Administration Aspirin 81 mg 02/26/25 09:00 03/01/25 09:04 Aspirin 81 Mg Enteric Tablet PO 81 mg DAILY SILAS Administration Atorvastatin Calcium 20 mg 02/26/25 09:00 03/01/25 09:04 Atorvastatin 20 Mg Tablet PO 20 mg DAILY SILAS Administration Buspirone HCl 10 mg 02/25/25 20:40 03/01/25 12:44 Buspirone Hcl 10 Mg Tablet PO 10 mg TID SILAS Administration Clonazepam 0.5 mg 02/25/25 20:35 03/01/25 01:25 Clonazepam (*Crx) 0.5 Mg Tablet PO 0.5 mg Q12H PRN Administration Anxiety Clopidogrel Bisulfate 75 mg 02/26/25 09:00 03/01/25 09:05 Clopidogrel Bisulfate 75 Mg Tablet PO 75 mg DAILY SILAS Administration Dextrose 12.5 gm 02/25/25 21:47 Dextrose 50% 25 Gm/50 Ml Syringe IV PUSH PRN PRN Hypoglycemia Protocol Enoxaparin Sodium 40 mg 02/26/25 09:00 03/01/25 09:05 Enoxaparin 40 Mg/0.4 Ml Syringe SUB-Q 40 mg DAILY SILAS Administration Escitalopram Oxalate 20 mg 02/26/25 09:00 03/01/25 09:06 Escitalopram Oxalate 10 Mg Tablet PO 20 mg DAILY SILAS Administration Furosemide 40 mg 02/26/25 09:00 03/01/25 09:06 Furosemide 40 Mg Tablet PO 40 mg BID SILAS Administration Glucagon 1 mg 02/25/25 21:47 Glucagon For Inj 1 Mg Vial IM PRN PRN Hypoglycemia Protocol Glucose 15 gm 02/25/25 21:47 Glucose Oral Gel 15 Gm Of Glucse In 37.5 Gm Tube PO PRN PRN Hypoglycemia Protocol Guaifenesin 1,200 mg 02/25/25 21:00 03/01/25 09:06 Guaifenesin 12 Hr 600 Mg Tabcr PO 1,200 mg Q12HR SILAS Administration Levofloxacin/Dextrose 750 mg in 150 mls @ 100 mls/hr 02/25/25 12:55 03/01/25 09:07 Levaquin 750 Mg/D5w 150 Ml IVPB 100 mls/hr QAM SILAS Administration Metronidazole 500 mg in 100 mls @ 100 mls/hr 02/25/25 14:00 03/01/25 06:02 Flagyl 500 Mg/Iso Soln 100 Ml IVPB Infused Q8H SILAS Infusion Dextrose 1,000 mls @ 100 mls/hr 02/25/25 21:47 Dextrose 5% 1,000 Ml IVPB PRN PRN Hypoglycemia Protocol Insulin Aspart 2 - 5 units 02/26/25 08:00 03/01/25 11:39 Insulin Aspart (*Bkc) 100 Units/Ml SUB-Q Not Given TIDWM [facility] Protocol Insulin Glargine 16 units 02/26/25 21:00 02/28/25 21:59 Insulin Glargine (*Bkc) 100 Units/Ml 0.2 units/kg (16 units) 16 units SUB-Q Administration HS SILAS Montelukast Sodium 10 mg 02/25/25 21:00 02/28/25 21:50 Montelukast Sodium 10 Mg Tablet PO 10 mg HS SILAS Administration Mycophenolate Mofetil 1,000 mg 02/25/25 21:00 02/26/25 08:54 Mycophenolate Mofetil 250 Mg Capsule PO 1,000 mg On Hold: 02/26/25 09:05 Q12H SILAS Administration Pantoprazole Sodium 40 mg 02/26/25 09:15 03/01/25 09:07 Pantoprazole 40 Mg Tablet PO 40 mg DAILY SILAS Administration Polyethylene Glycol 17 gm 02/26/25 09:00 03/01/25 09:07 Polyethylene Glycol 3350 17 Gm Powd.Pack [facility] Pramipexole Dihydrochloride 4 mg 02/25/25 21:00 02/28/25 21:49 Pramipexole 1 Mg Tablet PO 4 mg HS SILAS Administration Pramipexole Dihydrochloride 0.5 mg 02/25/25 21:00 02/28/25 21:50 Pramipexole 0.5 Mg Tablet PO 0.5 mg HS SILAS Administration Prednisone 30 mg 02/28/25 08:00 03/01/25 09:03 Prednisone 10 Mg Tablet PO 03/05/25 07:59 30 mg DAILY@0800 SILAS Administration Senna/Docusate Sodium 1 tab 02/25/25 21:00 02/28/25 21:46 Senna/Docusate Sodium Tablet PO 1 tab HS SILAS Administration Spironolactone 25 mg 02/26/25 09:00 03/01/25 09:07 Spironolactone 25 Mg Tablet PO 25 mg DAILY SILAS Administration Tizanidine HCl 4 mg 02/25/25 21:05 02/28/25 21:47 Tizanidine Hcl 4 Mg Tablet PO 4 mg HS PRN Administration Muscle Spasm Tramadol HCl 50 mg 03/01/25 12:25 03/01/25 12:45 Tramadol Hcl (*Crx) 50 Mg Tablet PO 50 mg Q8H PRN Administration pain 4-6 Trazodone HCl 50 mg 02/25/25 22:33 02/26/25 22:00 Trazodone Hcl 50 Mg Tablet PO 50 mg HS PRN Administration Insomnia Radiology Results: ITS Impressions Abdomen/Pelvis CT 02/25/25 11:46 IMPRESSION: 1. Mild diverticulitis along the left sigmoid colon. 2. Indeterminate 1.5 cm hyperenhancing focus in the right hepatic lobe which could relate to transient hepatic attenuation difference or neoplasm. Recommend follow-up pre and postcontrast MRI for further evaluation when clinically appropriate. 3. Dilation the common bile duct likely related to prior cholecystectomy. Correlate with liver function tests. If clinically indicated this could be further evaluated with MRI/MRCP. Chest X-Ray 02/25/25 12:20 IMPRESSION: 1: Small interstitial opacities in the visualized lung herrmann. Differential includes chronic interstitial changes, interstitial edema or interstitial pneumonia. 2. Lung volumes are low. If symptoms persist or worsen, consider a short-term follow-up study or additional imaging for further assessment. Upper Quadrant Ultrasound 02/28/25 17:41 IMPRESSION: 1. The hyperenhancing mass in right hepatic lobe seen by CT is not visualized. In the absence of known malignancy, this finding is likely a hemangioma or focal nodular hyperplasia. Labs Labs: Laboratory Results - last 24 hr 02/28/25 02/28/25 03/01/25 17:10 19:49 05:10 WBC 14.2 H RBC 3.85 L Hgb 11.4 L Hct 35.9 L MCV 93.2 MCH 29.6 MCHC 31.8 L RDW 14.0 Plt Count 233 MPV 8.6 Sodium 137 Potassium 3.3 L Chloride 97 L Carbon Dioxide 36 H Anion Gap 4 BUN 11 Creatinine 0.54 L Estim Creat Clear Calc 73 Estimated GFR > 60 Glucose 85 POC Capillary Glucose 219 H 107 H Calcium 8.9 03/01/25 03/01/25 07:56 11:33 WBC RBC Hgb Hct MCV MCH MCHC RDW Plt Count MPV Sodium Potassium Chloride Carbon Dioxide Anion Gap BUN Creatinine Estim Creat Clear Calc Estimated GFR Glucose POC Capillary Glucose 115 H 119 H Calcium Quality VTE Prophylaxis VTE prophylaxis: pharmacologic ordered
[2025-03-01] MEDS: PRAMIPEXOLE 0.5 MG TABLET PO (21:20)
[2025-03-01] MEDS: SENNA/DOCUSATE SODIUM TABLET 1 TAB PO (21:20)
[2025-03-01] MEDS: MONTELUKAST SODIUM 10 MG TABLET PO (21:20)
[2025-03-01] MEDS: PRAMIPEXOLE 1 MG TABLET 4 MG PO (21:22)
[2025-03-01] MEDS: INSULIN GLARGINE (*BKC) 100 UNITS/ML 16 UNITS SUB-Q (21:35)
[2025-03-02] VITALS (15 sets, daily range): BP systolic 108–151; BP diastolic 66–75; PULSE 80–108; RESP 16–19; TEMP 36.1–36.3; O2SAT 93–99
[2025-03-02] MEDS: IPRATROPIUM 0.5 MG/ALBUTEROL SULFATE 2.5 MG AMPUL.NEB 3 ML INHALATION ×4 (01:17→19:53)
[2025-03-02] MEDS: metroNIDAZOLE 500 MG/ISO 100ML 500 MG/100 ML BAG 100 MG IVPB (06:09)
[2025-03-02 06:20] LABS: Hematocrit 38.9 % (37.0-47.0); Hemoglobin 12.1 g/dL (12.0-15.0); Mean Corpuscular HGB Conc 31.1 g/dl (32-36); Mean Corpuscular Hemoglobin 29.4 pg (26-34); Mean Corpuscular Volume 94.4 fl (80-100); Platelet Count Result 245 k/mm3 (150-375); Red Blood Count 4.12 M/mm3 (4.2-5.4); White Blood Count 15.0 K/mm3 (4.5-10.0)
[2025-03-02 06:42] LABS: Anion Gap 5 mmol/L (4-12); Blood Urea Nitrogen 18 mg/dL (7-17); Calcium 9.2 mg/dL (8.4-10.2); Carbon Dioxide 34 mmol/L (22-30); Chloride 97 mmol/L (98-107); Estimated CRCL calculation 71 ml/min; Estimated Glomerular Filt Rate > 60; Glucose 94 mg/dL (65-110); Potassium 3.6 mmol/L (3.4-5.0); Sodium 136 mmol/L (137-145)
[2025-03-02] MEDS: ENOXAPARIN 40 MG/0.4 ML SYRINGE SUB-Q (09:44)
[2025-03-02] MEDS: ESCITALOPRAM OXALATE 10 MG TABLET 20 MG PO (09:45)
[2025-03-02] MEDS: guaiFENesin 12 HR 600 MG TABCR 1200 MG PO ×2 (09:45→21:43)
[2025-03-02] MEDS: ASPIRIN 81 MG ENTERIC TABLET PO (09:45)
[2025-03-02] MEDS: FUROSEMIDE 40 MG TABLET PO ×2 (09:45→16:17)
[2025-03-02] MEDS: SPIRONOLACTONE 25 MG TABLET PO (09:45)
[2025-03-02] MEDS: CLOPIDOGREL BISULFATE 75 MG TABLET PO (09:45)
[2025-03-02] MEDS: ATORVASTATIN 20 MG TABLET PO (09:45)
[2025-03-02] MEDS: PANTOPRAZOLE 40 MG TABLET PO (09:45)
[2025-03-02] MEDS: levoFLOXacin 750 MG/D5W 150 ML 750 MG/150 ML BAG 100 MG IVPB (09:46)
[2025-03-02] MEDS: clonazePAM (*CRX) 0.5 MG TABLET PO (09:59)
--- NOTE | 2025-03-02 11:49 | P.PNIM_ITS ---
Progress Note: A&P Assessment and Plan (1) Hypertension: Code(s): I10 - Essential (primary) hypertension Status: Chronic (2) Grade I diastolic dysfunction: Code(s): I51.89 - Other ill-defined heart diseases Status: Acute (3) Pacemaker: Code(s): Z95.0 - Presence of cardiac pacemaker Status: Acute (4) Type 2 diabetes mellitus with unspecified complications: Code(s): E11.8 - Type 2 diabetes mellitus with unspecified complications Status: Acute (5) Transaminitis: Code(s): R74.01 - Elevation of levels of liver transaminase levels Status: Acute (6) Liver lesion: Code(s): K76.9 - Liver disease, unspecified Status: Acute (7) Chronic respiratory failure: Code(s): J96.10 - Chronic respiratory failure, unspecified whether with hypoxia or hypercapnia Status: Chronic Plan 74-year-old female presents the hospital shortness of breath. She was at her office when she started having rigors, the patient was unable to stand and her states that he was afraid she was going to pass out. The symptoms resolved in a few minutes. Patient was sent to the emergency room Patient states that she a had a recent bout of diverticulitis and was placed on antibiotics and is on her 2nd course.Lab work in the ED shows leukocytosis at 13.1 anemia of 11.5, ABG within normal limits, glucose of 147, AST of 38 ALT of 41 which is round baseline, C reactive protein 2.3, troponin is negative. Influenza A/B, RSV, COVID negative. Chest x-ray shows opacities edema versus pneumonia. CT abdomen pelvis show mild diverticulitis in the left sigmoid colon, 1.5 cm indeterminate lesion in the right hepatic lobe, and dilation of the common bile duct pose cholecystectomy. 1. Acute diverticulitis: Last colonoscopy 3 years ago with polypectomy, benign Plan to continue with Levaquin and Flagyl for 2 weeks, was started on 02/24/2025 Not to resume immunosuppressive medications until antibiotics are completed Worsening leukocytosis Repeat CT abdomen shows improvement Appreciate GI help Continue with PPI Will obtain blood culture, urinalysis to rule out any additional ongoing infection Continue with prednisone, and that could be the possible reason for leukocytosis as 2. Chronic respiratory failure: Continue with O2 support Continue with BiPAP while sleeping Continue with DuoNebs Possible pneumonia Echocardiogram with grade 1 diastolic dysfunction On Levaquin Received 1 dose of IV Lasix, currently on oral Lasix Continue with aspirin, Plavix, statin, Lasix, Aldactone 3. History of hypertension: Continue with Norvasc 4. Diabetes mellitus: Blood glucose checked t.i.d. a.c. and HS Continue with sliding scale insulin Continue with 16 units of Lantus 5. Iron deficiency anemia: Status post IV iron 6. History of anxiety: Continue with BuSpar, Lexapro, clonazepam 7. Code status: Full 8. DVT prophylaxis: Lovenox 9. Disposition: Pending improvement in leukocytosis Time Spent With Patient Time: 37 minutes Subjective Date/time seen: 03/02/25 11:49 Interval history: denies any abdominal pain, no nausea no vomiting Review of Systems Review of Systems: All systems reviewed & are unremarkable except as noted in HPI and below Exam Narrative: HEENT: PERRL, sclerae nonicteric, pharyngeal mucosa pink and intact NECK: No JVD, adenopathy, or thyromegaly CHEST: No added sounds heard, decreased breath sounds bilaterally, baseline O2 support of 4 L HEART: NL S1/S2, regular, no murmur ABDOMEN: BS+, soft, nontender EXTREMITIES: No edema, confluent dark brown macular pigmentation of legs NEUROLOGIC: CN intact and symmetric to inspection, tone and strength symmetric to inspection MUSCULOSKELETAL: Bony enlargement of MCP and PIP joints of hands, bilateral bunions with lateral deviation of toes PSYCH: Alert. Oriented to person, place, and time Objective Data Vital Signs Vital Signs: Vital Signs - 24 hr 03/01/25 13:51 03/01/25 14:13 03/01/25 14:22 Temperature 96.1 F L Pulse Rate 106 H 100 102 H Respiratory Rate 20 14 14 Blood Pressure 127/85 Pulse Oximetry 98 Oxygen Delivery Oxygen Flow Rate Fraction of Inspired Oxygen 03/01/25 14:48 03/01/25 20:49 03/01/25 20:51 Temperature Pulse Rate 115 H 115 H Respiratory Rate 20 20 Blood Pressure Pulse Oximetry 95 Oxygen Delivery Nasal Cannula Nasal Cannula Oxygen Flow Rate 5 5 Fraction of Inspired Oxygen 40 03/01/25 21:05 03/01/25 21:23 03/01/25 22:47 Temperature 97.3 F L Pulse Rate 96 Respiratory Rate 18 20 Blood Pressure 114/65 Pulse Oximetry 100 100 Oxygen Delivery Nasal Cannula Autopap Oxygen Flow Rate 5 Fraction of Inspired Oxygen 03/02/25 01:18 03/02/25 01:21 03/02/25 04:46 Temperature Pulse Rate 95 Respiratory Rate 17 17 Blood Pressure Pulse Oximetry Oxygen Delivery Autopap Nasal Cannula Oxygen Flow Rate Fraction of Inspired Oxygen 03/02/25 05:34 03/02/25 08:00 03/02/25 08:06 Temperature 97.4 F L Pulse Rate 84 95 Respiratory Rate 16 18 Blood Pressure 130/66 Pulse Oximetry 99 99 Oxygen Delivery Nasal Cannula Oxygen Flow Rate 5 Fraction of Inspired Oxygen 03/02/25 08:14 03/02/25 08:30 Temperature Pulse Rate 99 Respiratory Rate 18 Blood Pressure Pulse Oximetry 93 Oxygen Delivery Nasal Cannula Oxygen Flow Rate 5 Fraction of Inspired Oxygen 40 Intake/Output Intake/Output: Intake & Output 02/27/25 02/28/25 03/01/25 03/02/25 23:59 23:59 23:59 23:59 Intake Total 1590 6 1570 340 Balance 1590 2055 1570 340 Meds/Results Medications: Active Medications Generic Name Dose Route Start Last Admin Trade Name Freq PRN Reason Stop Dose Admin Acetaminophen 650 mg 02/25/25 13:11 02/28/25 21:51 Acetaminophen 325 Mg Tablet PO 650 mg Q4H PRN Administration Mild Pain (1-3) or Fever Albuterol/Ipratropium 3 ml 02/25/25 20:00 03/02/25 08:03 Ipratropium 0.5 Mg/Albuterol Sulfate 2.5 Mg Ampul.Neb 3 Ml INHALATION 3 ml Q6HRT SILAS Administration Albuterol/Ipratropium 3 ml 02/25/25 18:04 02/25/25 18:19 Ipratropium 0.5 Mg/Albuterol Sulfate 2.5 Mg Ampul.Neb 3 Ml INHALATION 3 ml Q6HRT PRN Administration shortness of breath Amlodipine Besylate 5 mg 02/26/25 09:00 03/02/25 09:45 Amlodipine Besylate 5 Mg Tablet PO 5 mg DAILY SILAS Administration Aspirin 81 mg 02/26/25 09:00 03/02/25 09:45 Aspirin 81 Mg Enteric Tablet PO 81 mg DAILY SILAS Administration Atorvastatin Calcium 20 mg 02/26/25 09:00 03/02/25 09:45 Atorvastatin 20 Mg Tablet PO 20 mg DAILY SILAS Administration Buspirone HCl 10 mg 02/25/25 20:40 03/02/25 09:45 Buspirone Hcl 10 Mg Tablet PO 10 mg TID SILAS Administration Clonazepam 0.5 mg 02/25/25 20:35 03/01/25 01:25 Clonazepam (*Crx) 0.5 Mg Tablet PO 0.5 mg Q12H PRN Administration Anxiety Clopidogrel Bisulfate 75 mg 02/26/25 09:00 03/02/25 09:45 Clopidogrel Bisulfate 75 Mg Tablet PO 75 mg DAILY SILAS Administration Dextrose 12.5 gm 02/25/25 21:47 Dextrose 50% 25 Gm/50 Ml Syringe IV PUSH PRN PRN Hypoglycemia Protocol Enoxaparin Sodium 40 mg 02/26/25 09:00 03/02/25 09:44 Enoxaparin 40 Mg/0.4 Ml Syringe SUB-Q 40 mg DAILY SILAS Administration Escitalopram Oxalate 20 mg 02/26/25 09:00 03/02/25 09:45 Escitalopram Oxalate 10 Mg Tablet PO 20 mg DAILY SILAS Administration Furosemide 40 mg 02/26/25 09:00 03/02/25 09:45 Furosemide 40 Mg Tablet PO 40 mg BID SILAS Administration Glucagon 1 mg 02/25/25 21:47 Glucagon For Inj 1 Mg Vial IM PRN PRN Hypoglycemia Protocol Glucose 15 gm 02/25/25 21:47 Glucose Oral Gel 15 Gm Of Glucse In 37.5 Gm Tube PO PRN PRN Hypoglycemia Protocol Guaifenesin 1,200 mg 02/25/25 21:00 03/02/25 09:45 Guaifenesin 12 Hr 600 Mg Tabcr PO 1,200 mg Q12HR SILAS Administration Levofloxacin/Dextrose 750 mg in 150 mls @ 100 mls/hr 02/25/25 12:55 03/02/25 09:46 Levaquin 750 Mg/D5w 150 Ml IVPB 100 mls/hr QAM SILAS Administration Metronidazole 500 mg in 100 mls @ 100 mls/hr 02/25/25 14:00 03/02/25 07:09 Flagyl 500 Mg/Iso Soln 100 Ml IVPB Infused Q8H SILAS Infusion Dextrose 1,000 mls @ 100 mls/hr 02/25/25 21:47 Dextrose 5% 1,000 Ml IVPB PRN PRN Hypoglycemia Protocol Insulin Aspart 2 - 5 units 02/26/25 08:00 03/02/25 11:44 Insulin Aspart (*Bkc) 100 Units/Ml SUB-Q Not Given TIDWM [facility] Protocol Insulin Glargine 16 units 02/26/25 21:00 03/01/25 21:35 Insulin Glargine (*Bkc) 100 Units/Ml 0.2 units/kg (16 units) 16 units SUB-Q Administration HS SILAS Montelukast Sodium 10 mg 02/25/25 21:00 03/01/25 21:20 Montelukast Sodium 10 Mg Tablet PO 10 mg HS SILAS Administration Mycophenolate Mofetil 1,000 mg 02/25/25 21:00 02/26/25 08:54 Mycophenolate Mofetil 250 Mg Capsule PO 1,000 mg On Hold: 02/26/25 09:05 Q12H SLIAS Administration Pantoprazole Sodium 40 mg 02/26/25 09:15 03/02/25 09:45 Pantoprazole 40 Mg Tablet PO 40 mg DAILY SILAS Administration Polyethylene Glycol 17 gm 02/26/25 09:00 03/02/25 09:50 Polyethylene Glycol 3350 17 Gm Powd.Pack PO Not Given QAM SILAS Pramipexole Dihydrochloride 4 mg 02/25/25 21:00 03/01/25 21:22 Pramipexole 1 Mg Tablet PO 4 mg HS SILAS Administration Pramipexole Dihydrochloride 0.5 mg 02/25/25 21:00 03/01/25 21:20 Pramipexole 0.5 Mg Tablet PO 0.5 mg HS SILAS Administration Prednisone 30 mg 02/28/25 08:00 03/02/25 09:40 Prednisone 10 Mg Tablet PO 03/05/25 07:59 30 mg DAILY@0800 SILAS Administration Senna/Docusate Sodium 1 tab 02/25/25 21:00 03/01/25 21:20 Senna/Docusate Sodium Tablet PO 1 tab HS SILAS Administration Spironolactone 25 mg 02/26/25 09:00 03/02/25 09:45 Spironolactone 25 Mg Tablet PO 25 mg DAILY SILAS Administration Tizanidine HCl 4 mg 02/25/25 21:05 02/28/25 21:47 Tizanidine Hcl 4 Mg Tablet PO 4 mg HS PRN Administration Muscle Spasm Tramadol HCl 50 mg 03/01/25 12:25 03/01/25 12:45 Tramadol Hcl (*Crx) 50 Mg Tablet PO 50 mg Q8H PRN Administration pain 4-6 Trazodone HCl 50 mg 02/25/25 22:33 03/01/25 21:45 Trazodone Hcl 50 Mg Tablet PO 50 mg HS PRN Administration Insomnia Radiology Results: ITS Impressions Chest X-Ray 02/25/25 12:20 IMPRESSION: 1: Small interstitial opacities in the visualized lung herrmann. Differential includes chronic interstitial changes, interstitial edema or interstitial pneumonia. 2. Lung volumes are low. If symptoms persist or worsen, consider a short-term follow-up study or additional imaging for further assessment. Upper Quadrant Ultrasound 02/28/25 17:41 IMPRESSION: 1. The hyperenhancing mass in right hepatic lobe seen by CT is not visualized. In the absence of known malignancy, this finding is likely a hemangioma or focal nodular hyperplasia. Abdomen/Pelvis CT 03/01/25 13:19 IMPRESSION: 1. Decrease in now minimal stranding surrounding a diverticulum at the proximal sigmoid colon consistent with resolving diverticulitis. No new acute intra- abdominal/pelvic process. 2. Again seen is an indeterminate 1.3 cm hyperenhancing focus in the right hepatic lobe. Absence of known primary malignancy or known liver disease this most likely represents a hemangioma or focal nodular hyperplasia. Consider follow-up pre and post contrast MRI for further evaluation. 3. Persistent mild dilation the common bile duct which measures up to 1.3 cm without evident obstructing stone or mass most likely related to prior cholecystectomy. Labs Labs: Laboratory Results - last 24 hr 03/01/25 03/01/25 03/02/25 16:31 19:22 05:26 WBC 15.0 H RBC 4.12 L Hgb 12.1 Hct 38.9 MCV 94.4 MCH 29.4 MCHC 31.1 L RDW 13.8 Plt Count 245 MPV 8.9 Sodium 136 L Potassium 3.6 Chloride 97 L Carbon Dioxide 34 H Anion Gap 5 BUN 18 H Creatinine 0.56 L Estim Creat Clear Calc 71 Estimated GFR > 60 Glucose 94 POC Capillary Glucose 199 H 171 H Calcium 9.2 03/02/25 03/02/25 07:41 11:31 WBC RBC Hgb Hct MCV MCH MCHC RDW Plt Count MPV Sodium Potassium Chloride Carbon Dioxide Anion Gap BUN Creatinine Estim Creat Clear Calc Estimated GFR Glucose POC Capillary Glucose 86 111 H Calcium Quality VTE Prophylaxis VTE prophylaxis: pharmacologic ordered
[2025-03-02 12:07] LABS: Add Urine Microscopic? YES; Appearance Urine Clear (Clear); Glucose Urine UA Negative (Negative); Leukocyte Esterase Ur Trace LEU/UL (Negative); Nitrate Urine Negative (Negative); Non Pathogenic Casts 0-2; Specific Grav Ur 1.016 (1.001-1.035)
--- NOTE | 2025-03-02 14:25 | PC.NURSE ---
Complete bed linen change.
[2025-03-02] MEDS: traMADol HCL (*CRX) 50 MG TABLET PO (16:21)
[2025-03-02] MEDS: TIZANIDINE HCL 4 MG TABLET PO (16:21)
[2025-03-02] MEDS: INSULIN ASPART (*BKC) 100 UNITS/ML SUB-Q (16:23)
[2025-03-02] MEDS: SENNA/DOCUSATE SODIUM TABLET 1 TAB PO (21:42)
[2025-03-02] MEDS: MONTELUKAST SODIUM 10 MG TABLET PO (21:42)
[2025-03-02] MEDS: PRAMIPEXOLE 1 MG TABLET 4 MG PO (21:43)
[2025-03-02] MEDS: PRAMIPEXOLE 0.5 MG TABLET PO (21:43)
[2025-03-02] MEDS: INSULIN GLARGINE (*BKC) 100 UNITS/ML 16 UNITS SUB-Q (21:55)
[2025-03-02] MEDS: ACETAMINOPHEN 500 MG TABLET 1000 MG PO (22:36)
[2025-03-03] VITALS (14 sets, daily range): BP systolic 122–154; BP diastolic 64–93; PULSE 87–105; RESP 16–25; TEMP 35.9–36.6; O2SAT 91–99
[2025-03-03] MEDS: IPRATROPIUM 0.5 MG/ALBUTEROL SULFATE 2.5 MG AMPUL.NEB 3 ML INHALATION ×4 (01:37→20:16)
[2025-03-03 06:19] LABS: Hematocrit 41.6 % (37.0-47.0); Hemoglobin 12.8 g/dL (12.0-15.0); Mean Corpuscular HGB Conc 30.8 g/dl (32-36); Mean Corpuscular Hemoglobin 28.7 pg (26-34); Mean Corpuscular Volume 93.3 fl (80-100); Platelet Count Result 273 k/mm3 (150-375); Red Blood Count 4.46 M/mm3 (4.2-5.4); White Blood Count 16.5 K/mm3 (4.5-10.0)
[2025-03-03 06:41] LABS: Anion Gap 6 mmol/L (4-12); Blood Urea Nitrogen 16 mg/dL (7-17); Calcium 9.8 mg/dL (8.4-10.2); Carbon Dioxide 36 mmol/L (22-30); Chloride 93 mmol/L (98-107); Estimated CRCL calculation 62 ml/min; Estimated Glomerular Filt Rate > 60; Glucose 85 mg/dL (65-110); Potassium 4.1 mmol/L (3.4-5.0); Sodium 135 mmol/L (137-145)
[2025-03-03] MEDS: FUROSEMIDE 40 MG TABLET PO ×2 (08:22→16:15)
[2025-03-03] MEDS: SPIRONOLACTONE 25 MG TABLET PO (08:24)
[2025-03-03] MEDS: ASPIRIN 81 MG ENTERIC TABLET PO (08:24)
[2025-03-03] MEDS: CLOPIDOGREL BISULFATE 75 MG TABLET PO (08:24)
[2025-03-03] MEDS: guaiFENesin 12 HR 600 MG TABCR 1200 MG PO ×2 (08:24→21:38)
[2025-03-03] MEDS: ESCITALOPRAM OXALATE 10 MG TABLET 20 MG PO (08:24)
[2025-03-03] MEDS: clonazePAM (*CRX) 0.5 MG TABLET PO ×2 (08:25→16:15)
[2025-03-03] MEDS: PANTOPRAZOLE 40 MG TABLET PO (08:25)
[2025-03-03] MEDS: ATORVASTATIN 20 MG TABLET PO (08:25)
[2025-03-03] MEDS: ENOXAPARIN 40 MG/0.4 ML SYRINGE SUB-Q (09:20)
--- NOTE | 2025-03-03 09:39 | WPDIDCN ---
Assessment and Plan Assessment and plan (1) Leukocytosis: Qualifiers: Leukocytosis type: unspecified Qualified Code(s): D72.829 - Elevated white blood cell count, unspecified Code(s): D72.829 - Elevated white blood cell count, unspecified Status: Acute (2) Diverticulitis: Code(s): K57.92 - Diverticulitis of intestine, part unspecified, without perforation or abscess without bleeding Status: Acute (3) Rheumatoid arthritis: Qualifiers: Rheumatoid arthritis location: unspecified site Rheumatoid factor presence: unspecified presence Qualified Code(s): M06.9 - Rheumatoid arthritis, unspecified Code(s): M06.9 - Rheumatoid arthritis, unspecified Status: Acute (4) Bile duct, common, 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 -- initial improvement in leukocytosis corresponds with improvement in diverticulitis. -- recurrence of the increasing white blood cell count noted after placement on prednisone and suspect a steroid- induced phenomenon. # Acute diverticulitis. -- improving on levofloxacin/metronidazole. # History of rheumatoid arthritis for which she receives Humira and mycophenolate, both held upon hospitalization. Plan: -- follow white blood cell count with eventual taper/discontinuation of prednisone. -- continue planned antibiotic treatment course for diverticulitis. -- further recommendations to follow. Thank you for the consult. Patient was seen via video telehealth consultation with the assistance of staff. Chart, data, and patient independently reviewed. Patient was located at [facility] while I was located in [facility] office. Received verbal consent from patient. [facility] Data of Consult Date/Time: 03/03/25 09:39 Requesting Physician: Teodora Lakhani MD Primary Care Provider: Anila PatinoMD Consult Narrative Reason for consult: Increasing white blood cell count post admission Narrative: Estefany Loja is a 74 year old female with past medical history significant for COPD, obstructive sleep apnea, and chronic respiratory failure; also with hypertension, rheumatoid arthritis For which she receives mycophenolate and adalimumab, hyperlipidemia, gastroesophageal reflux disease, and restless leg syndrome. She maintains a pacemaker. Recently diagnosed with diverticulitis for which she has been receiving oral antibiotics. Presented to the ED 02/25/2025 after developing a limited episode of acute rigors with an inability to stand. Additional complaints include shortness of breath and abdominal pain. Admits to constipation rather than diarrhea. Noted to have leukocytosis of 13.1, minimal elevation in liver enzymes which is chronic, chest x-ray with changes consistent with edema versus pneumonia. Rapid respiratory panel negative. CT of the abdomen and pelvis suggestive of mild diverticulitis in the left sigmoid colon with a 1.5 cm indeterminate lesion in the right hepatic lobe and dilatation of the common bile duct post cholecystectomy. She is reportedly allergic to penicillins and sulfa medications. currently receiving levofloxacin and metronidazole. mycophenolate and adalimumab have been held during hospitalization. Placed on prednisone 30 mg daily as of 02/28. Despite presentation complaint of rigors she has remained afebrile. Leukocytosis initially dropped to 11.4 by 02/27 but has since been increasing. Hemoglobin 12.8. urinalysis without pyuria. Follow-up ultrasound did not really identify the right hepatic lobe hyperenhancing mass suggesting that the original lesion was likely hemangioma or focal nodular hyperplasia. Follow-up CT of the abdomen and pelvis identified a decrease in the now minimal stranding surrounding a diverticulum in the proximal sigmoid colon consistent with resolving diverticulitis, no new acute intra abdominal/pelvic process, re-identified george of the indeterminate 1.3 cm hyperenhancing focus in the right hepatic lobe, and persistent mild dilatation of the common bile duct which measures up to 1.3 cm without evident obstructing stone or mass and is likely related to prior cholecystectomy. Echocardiogram without vegetations and reports presence of pacemaker or ICD lead. 02/25 blood cultures negative at 48 hours, 03/02 blood cultures are pending. Infectious disease consulted for increasing white blood cell count post admission. Review of Systems Review of Systems: All systems reviewed & are unremarkable except as noted in HPI and below PMFSH Past Medical History Medical History Obstructive sleep apnea COPD (chronic obstructive pulmonary disease) Chronic respiratory failure GERD (gastroesophageal reflux disease) Restless leg syndrome Hyperlipidemia Rheumatoid arthritis Hypertension Surgical History Surgical History Previous back surgery H/O cervical spine surgery History of knee replacement Family History Family History Sibling Heart attack Lung cancer Chronic obstructive pulmonary disease Mother Hypertension Father Heart attack Hypertension Throat cancer Other Acute myocardial infarction Social History Social History Smoking status: Never smoker Alcohol intake: never Drinks per week: 1 Substance use: never Substance use type: does not use Lack of Transportation: No Lack of Food: Never True Current Housing: I Have Housing Concerned About Future Housing: No Difficulty Paying Gas/Electric Bills: No Difficulty Paying for Meds: No Currently Unemployed: No Education: High School Diploma/GED Difficulty w/ Childcare or Family Care: No Gender identity (if verbalized by the patient): Female Sexual Orientation (if Verbalized by the Patient): Straight or Heterosexual Spiritual care concerns: No Meds Home Medications and Allergies Home Medications ?Medication ?Instructions ?Recorded ?Confirmed ?Type albuterol sulfate 90 mcg/actuation 2 puff inhalation Q4H PRN 05/05/20 02/25/25 History aerosol inhaler SHORTNESS OF BREATH amlodipine 5 mg tablet 5 mg PO DAILY 05/05/20 02/25/25 History atorvastatin 20 mg tablet 20 mg PO DAILY 05/05/20 02/25/25 History azelastine 137 mcg (0.1 %) nasal 137 mcg intranasal BID 05/05/20 02/25/25 History spray buspirone 10 mg tablet 10 mg PO TID 05/05/20 02/25/25 History clonazepam 0.5 mg tablet 0.5 mg PO Q12H PRN Anxiety 05/05/20 02/25/25 History escitalopram oxalate 20 mg tablet 20 mg PO DAILY 05/05/20 02/25/25 History fluticasone propionate 50 2 spray intranasal DAILY 05/05/20 02/25/25 History mcg/actuation nasal spray,suspension montelukast 10 mg tablet 10 mg PO HS 05/05/20 02/25/25 History pramipexole 1.5 mg tablet 4.5 mg PO HS 05/05/20 02/25/25 History trazodone 50 mg tablet 300 mg PO HS 05/05/20 02/25/25 History Lactobacillus reuteri 100 million 1 cell PO DAILY 05/06/20 02/25/25 History cell chewable tablet adalimumab 40 mg/0.4 mL 40 mg subcut [id number] 05/06/20 02/25/25 History subcutaneous pen kit (Humira(CF) Pen) cholecalciferol (vitamin D3) 10 10 mcg PO DAILY 05/06/20 02/25/25 History mcg (400 unit) tablet (Vitamin D3) multivitamin with minerals 1 tablet PO DAILY 05/06/20 02/25/25 History acetaminophen 500 mg tablet 500 mg PO Q6H PRN pain #30 tabs 05/10/20 02/25/25 Rx ferrous sulfate 324 mg (65 mg 324 mg PO DAILY #30 tabs 05/10/20 02/25/25 Rx iron) tablet,delayed release omeprazole 20 mg capsule,delayed 20 mg PO BID #0 caps 05/10/20 02/25/25 Rx release aspirin 81 mg tablet,delayed 81 mg PO DAILY 09/28/21 02/25/25 History release clopidogrel 75 mg tablet (Plavix) 75 mg PO DAILY 09/28/21 02/25/25 History albuterol sulfate 2.5 mg/0.5 mL 2.5 mg inhalation QID 10/10/21 02/25/25 History solution for nebulization calcium carbonate 600 mg PO DAILY 10/10/21 02/25/25 History furosemide 40 mg tablet 40 mg PO BID 10/10/21 02/25/25 History potassium chloride 20 mEq 20 meq PO DAILY 10/10/21 02/25/25 History tablet,extended release tizanidine 4 mg capsule 4 mg PO HS PRN Muscle Spasm 10/10/21 02/25/25 History ondansetron 4 mg disintegrating 4 mg PO Q8H #7 tabs 02/14/25 02/25/25 Rx tablet budesonide 160 mcg-glycopyr 9 2 inh inhalation BID 02/25/25 02/25/25 History mcg-formot 4.8 mcg/actuation HFA inhaler (Breztri Aerosphere) gentamicin 0.1 % topical ointment 1 applic topical DAILY 02/25/25 02/25/25 History miconazole nitrate 4 % (200 mg)-2 1 appful vaginal HS 02/25/25 02/25/25 History % (9 gram)vaginal,prefill appl,cream (Miconazole-3) moxifloxacin 400 mg tablet 400 mg PO DAILY 02/25/25 02/25/25 History mycophenolate mofetil 500 mg tablet 1,000 mg PO Q12H 02/25/25 02/25/25 History pantoprazole 40 mg tablet,delayed 40 mg PO DAILY 02/25/25 02/25/25 History release spironolactone 25 mg tablet 25 mg PO DAILY 02/25/25 02/25/25 History tramadol 50 mg tablet 50 mg PO BID pain 4-6 02/25/25 02/25/25 History vilazodone 10 mg tablet (Viibryd) 10 mg PO DAILY 02/25/25 02/25/25 History Allergies Allergy/AdvReac Type Severity Reaction Status Date / Time Penicillins Allergy Unknown Verified 02/25/25 14:17 scopolamine Allergy Unknown Verified 02/25/25 14:17 Sulfa (Sulfonamide Allergy Unknown Verified 02/25/25 14:17 Antibiotics) codeine AdvReac Mild Nausea Verified 02/25/25 14:17 Vital Signs Vital Signs - 24 hr 03/02/25 10:13 03/02/25 13:56 03/02/25 14:00 Temperature 97.2 F L Pulse Rate 105 H 107 H Respiratory Rate 18 18 Blood Pressure 151/72 H Pulse Oximetry 99 Oxygen Delivery Nasal Cannula Oxygen Flow Rate 5 Fraction of Inspired Oxygen 03/02/25 14:03 03/02/25 19:54 03/02/25 19:54 Temperature Pulse Rate 108 H 93 Respiratory Rate 18 18 Blood Pressure Pulse Oximetry 95 Oxygen Delivery Nasal Cannula Oxygen Flow Rate 5 Fraction of Inspired Oxygen 40 03/02/25 20:02 03/02/25 21:05 03/02/25 21:42 Temperature 97.0 F L Pulse Rate 100 90 Respiratory Rate 18 18 Blood Pressure 108/75 Pulse Oximetry 99 94 Oxygen Delivery Nasal Cannula Oxygen Flow Rate 5 Fraction of Inspired Oxygen 03/02/25 23:56 03/03/25 01:37 03/03/25 01:37 Temperature Pulse Rate 80 95 95 Respiratory Rate 19 25 H 25 H Blood Pressure Pulse Oximetry 94 95 Oxygen Delivery Autopap Autopap Oxygen Flow Rate Fraction of Inspired Oxygen 03/03/25 01:43 03/03/25 05:55 03/03/25 07:13 Temperature 96.6 F L Pulse Rate 99 90 87 Respiratory Rate 25 H 16 20 Blood Pressure 122/64 Pulse Oximetry 99 Oxygen Delivery Oxygen Flow Rate Fraction of Inspired Oxygen 03/03/25 07:18 03/03/25 07:23 Temperature Pulse Rate 87 90 Respiratory Rate 20 20 Blood Pressure Pulse Oximetry 91 Oxygen Delivery Nasal Cannula Oxygen Flow Rate 4 Fraction of Inspired Oxygen Exam Narrative: She is awake and alert and sitting up in a chair. Nontoxic in appearance. States she is feeling much better. Decreased abdominal pain. Nonlabored respirations. No tachycardia. Abdomen without significant distention. No evidence of rash. Results Labs 03/03/25 05:30 03/03/25 05:30 Labs: Short CBC 03/03/25 Range/Units 05:30 WBC 16.5 H (4.5-10.0) K/mm3 Hgb 12.8 (12.0-15.0) g/dL Hct 41.6 (37.0-47.0) % Plt Count 273 (150-375) k/mm3 BMP 03/03/25 05:30 Sodium 135 L Potassium 4.1 Chloride 93 L Carbon Dioxide 36 H BUN 16 Creatinine 0.65 L Glucose 85 Calcium 9.8 Urine 03/02/25 Range/Units 11:51 Urine Color Yellow (Yellow) Urine Appearance Clear (Clear) Urine pH 7.0 (5.0-9.0) Ur Specific Orr 1.016 (1.001-1.035) Urine Protein Negative (Negative) mg/dL Urine Glucose (UA) Negative (Negative) mg/dL
--- NOTE | 2025-03-03 10:06 | PCNWS ---
Weekly nutritional screen. Patient is tolerating current Heart healthy, diabetic consistent carb diet with adequate intake, 40-100%, improved. No weight loss reported. No nutritional needs at this time.
--- NOTE | 2025-03-03 13:02 | PM.IMPN ---
Progress Note: A&P Assessment and Plan (1) Hypertension: Qualifiers: Hypertension type: unspecified Qualified Code(s): I10 - Essential (primary) hypertension Code(s): I10 - Essential (primary) hypertension Status: Chronic (2) Grade I diastolic dysfunction: Code(s): I51.89 - Other ill-defined heart diseases Status: Acute (3) Pacemaker: Code(s): Z95.0 - Presence of cardiac pacemaker Status: Acute (4) Type 2 diabetes mellitus with unspecified complications: Code(s): E11.8 - Type 2 diabetes mellitus with unspecified complications Status: Acute (5) Transaminitis: Code(s): R74.01 - Elevation of levels of liver transaminase levels Status: Acute (6) Liver lesion: Code(s): K76.9 - Liver disease, unspecified Status: Acute (7) Chronic respiratory failure: Qualifiers: Respiratory failure complication: unspecified whether with hypoxia or hypercapnia Qualified Code(s): J96.10 - Chronic respiratory failure, unspecified whether with hypoxia or hypercapnia Code(s): J96.10 - Chronic respiratory failure, unspecified whether with hypoxia or hypercapnia Status: Chronic Plan 74-year-old female presents the hospital shortness of breath. She was at her office when she started having rigors, the patient was unable to stand and her states that he was afraid she was going to pass out. The symptoms resolved in a few minutes. Patient was sent to the emergency room Patient states that she a had a recent bout of diverticulitis and was placed on antibiotics and is on her 2nd course.Lab work in the ED shows leukocytosis at 13.1 anemia of 11.5, ABG within normal limits, glucose of 147, AST of 38 ALT of 41 which is round baseline, C reactive protein 2.3, troponin is negative. Influenza A/B, RSV, COVID negative. Chest x-ray shows opacities edema versus pneumonia. CT abdomen pelvis show mild diverticulitis in the left sigmoid colon, 1.5 cm indeterminate lesion in the right hepatic lobe, and dilation of the common bile duct pose cholecystectomy. 1. Acute diverticulitis: Last colonoscopy 3 years ago with polypectomy, benign Plan to continue with Levaquin and Flagyl for 2 weeks, was started on 02/24/2025 Not to resume immunosuppressive medications until antibiotics are completed Worsening leukocytosis, no abdominal symptoms, has remarkable improvement Repeat CT abdomen shows improvement Appreciate GI help Continue with PPI Repeat blood culture, urinalysis are unremarkable Continue with prednisone, and that could be the possible reason for leukocytosis Obtain ID consult 2. Chronic respiratory failure: Continue with O2 support Continue with BiPAP while sleeping Continue with DuoNebs Possible pneumonia Echocardiogram with grade 1 diastolic dysfunction On Levaquin Received 1 dose of IV Lasix, currently on oral Lasix Continue with aspirin, Plavix, statin, Lasix, Aldactone 3. History of hypertension: Continue with Norvasc 4. Diabetes mellitus: Blood glucose checked t.i.d. a.c. and HS Continue with sliding scale insulin Continue with 16 units of Lantus 5. Iron deficiency anemia: Status post IV iron 6. History of anxiety: Continue with BuSpar, Lexapro, clonazepam 7. Code status: Full 8. DVT prophylaxis: Lovenox 9. Disposition: Pending improvement in leukocytosis Time Spent With Patient Time: 37 minutes Subjective Date/time seen: 03/03/25 13:02 Interval history: No acute events overnight Review of Systems Review of Systems: All systems reviewed & are unremarkable except as noted in HPI and below Exam Narrative: HEENT: PERRL, sclerae nonicteric, pharyngeal mucosa pink and intact NECK: No JVD, adenopathy, or thyromegaly CHEST: No added sounds heard, decreased breath sounds bilaterally, baseline O2 support of 4 L HEART: NL S1/S2, regular, no murmur ABDOMEN: BS+, soft, nontender EXTREMITIES: No edema, confluent dark brown macular pigmentation of legs NEUROLOGIC: CN intact and symmetric to inspection, tone and strength symmetric to inspection MUSCULOSKELETAL: Bony enlargement of MCP and PIP joints of hands, bilateral bunions with lateral deviation of toes PSYCH: Alert. Oriented to person, place, and time Objective Data Vital Signs Vital Signs: Vital Signs - 24 hr 03/02/25 13:56 03/02/25 14:00 03/02/25 14:03 Temperature 97.2 F L Pulse Rate 105 H 107 H 108 H Respiratory Rate 18 18 18 Blood Pressure 151/72 H Pulse Oximetry 99 Oxygen Delivery Oxygen Flow Rate Fraction of Inspired Oxygen 03/02/25 19:54 03/02/25 19:54 03/02/25 20:02 Temperature Pulse Rate 93 100 Respiratory Rate 18 18 Blood Pressure Pulse Oximetry 95 Oxygen Delivery Nasal Cannula Oxygen Flow Rate 5 Fraction of Inspired Oxygen 40 03/02/25 21:05 03/02/25 21:42 03/02/25 23:56 Temperature 97.0 F L Pulse Rate 90 80 Respiratory Rate 18 19 Blood Pressure 108/75 Pulse Oximetry 99 94 94 Oxygen Delivery Nasal Cannula Autopap Oxygen Flow Rate 5 Fraction of Inspired Oxygen 03/03/25 01:37 03/03/25 01:37 03/03/25 01:43 Temperature Pulse Rate 95 95 99 Respiratory Rate 25 H 25 H 25 H Blood Pressure Pulse Oximetry 95 Oxygen Delivery Autopap Oxygen Flow Rate Fraction of Inspired Oxygen 03/03/25 05:55 03/03/25 07:13 03/03/25 07:18 Temperature 96.6 F L Pulse Rate 90 87 87 Respiratory Rate 16 20 20 Blood Pressure 122/64 Pulse Oximetry 99 91 Oxygen Delivery Nasal Cannula Oxygen Flow Rate 4 Fraction of Inspired Oxygen 03/03/25 07:23 03/03/25 08:00 Temperature Pulse Rate 90 Respiratory Rate 20 Blood Pressure Pulse Oximetry 91 Oxygen Delivery Nasal Cannula Oxygen Flow Rate 5 Fraction of Inspired Oxygen Intake/Output Intake/Output: Intake & Output 02/28/25 03/01/25 03/02/25 03/03/25 23:59 23:59 23:59 23:59 Intake Total 2055 0851 559 3225 Balance 2055 7454 180 6054 Meds/Results Medications: Active Medications Generic Name Dose Route Start Last Admin Trade Name Freq PRN Reason Stop Dose Admin Acetaminophen 1,000 mg 03/02/25 22:08 03/02/25 22:36 Acetaminophen 500 Mg Tablet PO 1,000 mg Q6H PRN Administration Mild Pain (1-3) or Fever Albuterol/Ipratropium 3 ml 02/25/25 20:00 03/03/25 07:13 Ipratropium 0.5 Mg/Albuterol Sulfate 2.5 Mg Ampul.Neb 3 Ml INHALATION 3 ml Q6HRT SILAS Administration Albuterol/Ipratropium 3 ml 02/25/25 18:04 02/25/25 18:19 Ipratropium 0.5 Mg/Albuterol Sulfate 2.5 Mg Ampul.Neb 3 Ml INHALATION 3 ml Q6HRT PRN Administration shortness of breath Amlodipine Besylate 5 mg 02/26/25 09:00 03/03/25 08:23 Amlodipine Besylate 5 Mg Tablet PO 5 mg DAILY SILAS Administration Aspirin 81 mg 02/26/25 09:00 03/03/25 08:24 Aspirin 81 Mg Enteric Tablet PO 81 mg DAILY SILAS Administration Atorvastatin Calcium 20 mg 02/26/25 09:00 03/03/25 08:25 Atorvastatin 20 Mg Tablet PO 20 mg DAILY SILAS Administration Buspirone HCl 10 mg 02/25/25 20:40 03/03/25 08:24 Buspirone Hcl 10 Mg Tablet PO 10 mg TID SILAS Administration Clonazepam 0.5 mg 02/25/25 20:35 03/01/25 01:25 Clonazepam (*Crx) 0.5 Mg Tablet PO 0.5 mg Q12H PRN Administration Anxiety Clopidogrel Bisulfate 75 mg 02/26/25 09:00 03/03/25 08:24 Clopidogrel Bisulfate 75 Mg Tablet PO 75 mg DAILY SILAS Administration Dextrose 12.5 gm 02/25/25 21:47 Dextrose 50% 25 Gm/50 Ml Syringe IV PUSH PRN PRN Hypoglycemia Protocol Enoxaparin Sodium 40 mg 02/26/25 09:00 03/03/25 09:20 Enoxaparin 40 Mg/0.4 Ml Syringe SUB-Q 40 mg DAILY SILAS Administration Escitalopram Oxalate 20 mg 02/26/25 09:00 03/03/25 08:24 Escitalopram Oxalate 10 Mg Tablet PO 20 mg DAILY SILAS Administration Furosemide 40 mg 02/26/25 09:00 03/03/25 08:22 Furosemide 40 Mg Tablet PO 40 mg BID SILAS Administration Glucagon 1 mg 02/25/25 21:47 Glucagon For Inj 1 Mg Vial IM PRN PRN Hypoglycemia Protocol Glucose 15 gm 02/25/25 21:47 Glucose Oral Gel 15 Gm Of Glucse In 37.5 Gm Tube PO PRN PRN Hypoglycemia Protocol Guaifenesin 1,200 mg 02/25/25 21:00 03/03/25 08:24 Guaifenesin 12 Hr 600 Mg Tabcr PO 1,200 mg Q12HR SILAS Administration Dextrose 1,000 mls @ 100 mls/hr 02/25/25 21:47 Dextrose 5% 1,000 Ml IVPB PRN PRN Hypoglycemia Protocol Insulin Aspart 2 - 5 units 02/26/25 08:00 03/03/25 12:02 Insulin Aspart (*Bkc) 100 Units/Ml SUB-Q Not Given TIDWM [facility] Protocol Insulin Glargine 16 units 02/26/25 21:00 03/02/25 21:55 Insulin Glargine (*Bkc) 100 Units/Ml 0.2 units/kg (16 units) 16 units SUB-Q Administration HS SILAS Levofloxacin 750 mg 03/03/25 09:00 03/03/25 08:25 Levofloxacin 750 Mg Tablet PO 03/10/25 09:01 750 mg DAILY SILAS Administration Metronidazole 500 mg 03/02/25 14:00 03/03/25 05:41 Metronidazole 500 Mg Tablet PO 03/10/25 22:01 500 mg Q8HR SILAS Administration Montelukast Sodium 10 mg 02/25/25 21:00 03/02/25 21:42 Montelukast Sodium 10 Mg Tablet PO 10 mg HS SILAS Administration Mycophenolate Mofetil 1,000 mg 02/25/25 21:00 02/26/25 08:54 Mycophenolate Mofetil 250 Mg Capsule PO 1,000 mg On Hold: 02/26/25 09:05 Q12H SILAS Administration Pantoprazole Sodium 40 mg 02/26/25 09:15 03/03/25 08:25 Pantoprazole 40 Mg Tablet PO 40 mg DAILY SILAS Administration Polyethylene Glycol 17 gm 02/26/25 09:00 03/03/25 08:22 Polyethylene Glycol 3350 17 Gm Powd.Pack PO 17 gm QAM SILAS Administration Pramipexole Dihydrochloride 4 mg 02/25/25 21:00 03/02/25 21:43 Pramipexole 1 Mg Tablet PO 4 mg HS SILAS Administration Pramipexole Dihydrochloride 0.5 mg 02/25/25 21:00 03/02/25 21:43 Pramipexole 0.5 Mg Tablet PO 0.5 mg HS SILAS Administration Prednisone 30 mg 02/28/25 08:00 03/03/25 08:24 Prednisone 10 Mg Tablet PO 03/05/25 07:59 30 mg DAILY@0800 SILAS Administration Senna/Docusate Sodium 1 tab 02/25/25 21:00 03/02/25 21:42 Senna/Docusate Sodium Tablet PO 1 tab HS [facility] Administration Spironolactone 25 mg 02/26/25 09:00 03/03/25 08:24 Spironolactone 25 Mg Tablet PO 25 mg DAILY SILAS Administration Tizanidine HCl 4 mg 02/25/25 21:05 03/02/25 16:21 Tizanidine Hcl 4 Mg Tablet PO 4 mg HS PRN Administration Muscle Spasm Tramadol HCl 50 mg 03/01/25 12:25 03/02/25 16:21 Tramadol Hcl (*Crx) 50 Mg Tablet PO 50 mg Q8H PRN Administration pain 4-6 Trazodone HCl 50 mg 02/25/25 22:33 03/02/25 22:36 Trazodone Hcl 50 Mg Tablet PO 50 mg HS PRN Administration Insomnia Radiology Results: ITS Impressions Chest X-Ray 02/25/25 12:20 IMPRESSION: 1: Small interstitial opacities in the visualized lung herrmann. Differential includes chronic interstitial changes, interstitial edema or interstitial pneumonia. 2. Lung volumes are low. If symptoms persist or worsen, consider a short-term follow-up study or additional imaging for further assessment. Upper Quadrant Ultrasound 02/28/25 17:41 IMPRESSION: 1. The hyperenhancing mass in right hepatic lobe seen by CT is not visualized. In the absence of known malignancy, this finding is likely a hemangioma or focal nodular hyperplasia. Abdomen/Pelvis CT 03/01/25 13:19 IMPRESSION: 1. Decrease in now minimal stranding surrounding a diverticulum at the proximal sigmoid colon consistent with resolving diverticulitis. No new acute intra-abdominal/pelvic process. 2. Again seen is an indeterminate 1.3 cm hyperenhancing focus in the right hepatic lobe. Absence of known primary malignancy or known liver disease this most likely represents a hemangioma or focal nodular hyperplasia. Consider follow-up pre and post contrast MRI for further evaluation. 3. Persistent mild dilation the common bile duct which measures up to 1.3 cm without evident obstructing stone or mass most likely related to prior cholecystectomy. Labs Labs: Laboratory Results - last 24 hr 03/02/25 03/02/25 03/03/25 16:21 20:17 05:30 WBC 16.5 H RBC 4.46 Hgb 12.8 Hct 41.6 MCV 93.3 MCH 28.7 MCHC 30.8 L RDW 14.0 Plt Count 273 MPV 8.9 Sodium 135 L Potassium 4.1 Chloride 93 L Carbon Dioxide 36 H Anion Gap 6 BUN 16 Creatinine 0.65 L Estim Creat Clear Calc 62 Estimated GFR > 60 Glucose 85 POC Capillary Glucose 205 H 196 H Calcium 9.8 03/03/25 03/03/25 07:49 11:28 WBC RBC Hgb Hct MCV MCH MCHC RDW Plt Count MPV Sodium Potassium Chloride Carbon Dioxide Anion Gap BUN Creatinine Estim Creat Clear Calc Estimated GFR Glucose POC Capillary Glucose 73 134 H Calcium Quality VTE Prophylaxis VTE prophylaxis: pharmacologic ordered
[2025-03-03] MEDS: traMADol HCL (*CRX) 50 MG TABLET PO (16:15)
[2025-03-03] MEDS: INSULIN ASPART (*BKC) 100 UNITS/ML SUB-Q (17:18)
[2025-03-03] MEDS: SENNA/DOCUSATE SODIUM TABLET 1 TAB PO (21:38)
[2025-03-03] MEDS: PRAMIPEXOLE 0.5 MG TABLET PO (21:38)
[2025-03-03] MEDS: PRAMIPEXOLE 1 MG TABLET 4 MG PO (21:38)
[2025-03-03] MEDS: MONTELUKAST SODIUM 10 MG TABLET PO (21:38)
[2025-03-03] MEDS: INSULIN GLARGINE (*BKC) 100 UNITS/ML 16 UNITS SUB-Q (21:39)
[2025-03-04] VITALS (9 sets, daily range): BP systolic 121; BP diastolic 57; PULSE 77–98; RESP 18–21; TEMP 36.8; O2SAT 93–99; BMI 33.6
[2025-03-04] MEDS: IPRATROPIUM 0.5 MG/ALBUTEROL SULFATE 2.5 MG AMPUL.NEB 3 ML INHALATION ×3 (02:00→14:09)
[2025-03-04 06:55] LABS: Hematocrit 34.9 % (37.0-47.0); Hemoglobin 11.0 g/dL (12.0-15.0); Mean Corpuscular HGB Conc 31.5 g/dl (32-36); Mean Corpuscular Hemoglobin 29.7 pg (26-34); Mean Corpuscular Volume 94.3 fl (80-100); Platelet Count Result 205 k/mm3 (150-375); Red Blood Count 3.70 M/mm3 (4.2-5.4); White Blood Count 12.8 K/mm3 (4.5-10.0)
[2025-03-04 07:19] LABS: Anion Gap 2 mmol/L (4-12); Blood Urea Nitrogen 15 mg/dL (7-17); Calcium 8.8 mg/dL (8.4-10.2); Carbon Dioxide 35 mmol/L (22-30); Chloride 98 mmol/L (98-107); Estimated CRCL calculation 70 ml/min; Estimated Glomerular Filt Rate > 60; Glucose 78 mg/dL (65-110); Potassium 3.8 mmol/L (3.4-5.0); Sodium 135 mmol/L (137-145)
[2025-03-04] MEDS: guaiFENesin 12 HR 600 MG TABCR 1200 MG PO (09:15)
[2025-03-04] MEDS: ATORVASTATIN 20 MG TABLET PO (09:15)
[2025-03-04] MEDS: ESCITALOPRAM OXALATE 10 MG TABLET 20 MG PO (09:15)
[2025-03-04] MEDS: SPIRONOLACTONE 25 MG TABLET PO (09:16)
[2025-03-04] MEDS: PANTOPRAZOLE 40 MG TABLET PO (09:16)
[2025-03-04] MEDS: ASPIRIN 81 MG ENTERIC TABLET PO (09:16)
[2025-03-04] MEDS: FUROSEMIDE 40 MG TABLET PO (09:16)
[2025-03-04] MEDS: CLOPIDOGREL BISULFATE 75 MG TABLET PO (09:16)
[2025-03-04] MEDS: ENOXAPARIN 40 MG/0.4 ML SYRINGE SUB-Q (09:17)
--- NOTE | 2025-03-04 10:20 | P.DS_ITS ---
DS: Admitting Diagnosis Discharge Date 03/04/25 Admitting Diagnosis Abdominal pain, acute diverticulitis Chronic respiratory failure, possible pneumonia DS: Discharge Diagnosis Discharge Diagnosis (1) Hypertension: Qualifiers: Hypertension type: unspecified Qualified Code(s): I10 - Essential (primary) hypertension Code(s): I10 - Essential (primary) hypertension Status: Chronic (2) Grade I diastolic dysfunction: Code(s): I51.89 - Other ill-defined heart diseases Status: Acute (3) Type 2 diabetes mellitus with unspecified complications: Code(s): E11.8 - Type 2 diabetes mellitus with unspecified complications Status: Acute (4) Protein calorie malnutrition: Code(s): E46 - Unspecified protein-calorie malnutrition Status: Acute (5) Diverticulitis: Code(s): K57.92 - Diverticulitis of intestine, part unspecified, without perforation or abscess without bleeding Status: Acute (6) Leukocytosis: Qualifiers: Leukocytosis type: unspecified Qualified Code(s): D72.829 - Elevated white blood cell count, unspecified Code(s): D72.829 - Elevated white blood cell count, unspecified Status: Acute (7) Rheumatoid arthritis: Qualifiers: Rheumatoid arthritis location: unspecified site Rheumatoid factor presence: unspecified presence Qualified Code(s): M06.9 - Rheumatoid arthritis, unspecified Code(s): M06.9 - Rheumatoid arthritis, unspecified Status: Acute DS: Summary Hospital Course Reason for hospitalization: Abdominal pain, acute diverticulitis Chronic respiratory failure Hospital Course: 74-year-old female presents the hospital shortness of breath. She was at her office when she started having rigors, the patient was unable to stand and her states that he was afraid she was going to pass out. The symptoms resolved in a few minutes. Patient was sent to the emergency room Patient states that she a had a recent bout of diverticulitis and was placed on antibiotics and is on her 2nd course.Lab work in the ED shows leukocytosis at 13.1 anemia of 11.5, ABG within normal limits, glucose of 147, AST of 38 ALT of 41 which is round baseline, C reactive protein 2.3, troponin is negative. Influenza A/B, RSV, COVID negative. Chest x-ray shows opacities edema versus pneumonia. CT abdomen pelvis show mild diverticulitis in the left sigmoid colon, 1.5 cm indeterminate lesion in the right hepatic lobe, and dilation of the common bile duct pose cholecystectomy. Patient was started on levofloxacin, Flagyl. GI was consulted. Advised to continue with levofloxacin and Flagyl and not to resume immunosuppressive medications until antibiotics are completed. Patient will follow with GI as an outpatient. Patient has history of chronic respiratory failure, continued with DuoNebs, possible pneumonia was also treated with antibiotics as mentioned above. Was found to have diabetes mellitus. Treated with insulin therapy while in the hospital, discharged on oral metformin. Patient is being discharged home in [facility] condition with home health. Status at Discharge Functional status at discharge: independent ambulation Overall status at discharge: patient is back to baseline Time Spent with Patient Time attestation: Total time spent providing and/or coordinating discharge services: 34 minutes Exam Narrative: HEENT: PERRL, sclerae nonicteric, pharyngeal mucosa pink and intact NECK: No JVD, adenopathy, or thyromegaly CHEST: No added sounds heard, decreased breath sounds bilaterally, baseline O2 support of 4 L HEART: NL S1/S2, regular, no murmur ABDOMEN: BS+, soft, nontender EXTREMITIES: No edema, confluent dark brown macular pigmentation of legs NEUROLOGIC: CN intact and symmetric to inspection, tone and strength symmetric to inspection MUSCULOSKELETAL: Bony enlargement of MCP and PIP joints of hands, bilateral bunions with lateral deviation of toes PSYCH: Alert. Oriented to person, place, and time DS: Data Data Completed and Pending Labs on day of discharge: Labs from last 24 hours 03/04/25 03/04/25 03/03/25 07:28 06:04 20:17 WBC 12.8 H RBC 3.70 L Hgb 11.0 L Hct 34.9 L MCV 94.3 MCH 29.7 MCHC 31.5 L RDW 13.9 Plt Count 205 MPV 9.1 Sodium 135 L Potassium 3.8 Chloride 98 Carbon Dioxide 35 H Anion Gap 2 L BUN 15 Creatinine 0.57 L Estim Creat Clear Calc 70 Estimated GFR > 60 Glucose 78 POC Capillary Glucose 92 179 H Calcium 8.8 03/03/25 03/03/25 16:52 11:28 WBC RBC Hgb Hct MCV MCH MCHC RDW Plt Count MPV Sodium Potassium Chloride Carbon Dioxide Anion Gap BUN Creatinine Estim Creat Clear Calc Estimated GFR Glucose POC Capillary Glucose 231 H 134 H Calcium Preliminary micro results at discharge 03/02/25 09:27 Blood Culture - Preliminary Blood 03/02/25 09:36 Blood Culture - Preliminary Blood Discharge Plan Discharge Attending physician on discharge: Lynne Funes Consulting providers: Ryan Mcgrath Discharging Clinician: Lynne Funes Anticipated Discharge Date/Time: 03/04/25 10:12 Patient Disposition: Home with Home Health Service Activity: as tolerated Diet: heart healthy Discharge Instructions: Please take all medications as prescribed Get plenty of rest while keeping active to maintain strength Seek immediate medical care for worsening symptoms Care coordination will be in contact with you to set up home health. Patient Instructions: Antibiotic Form, Diverticulitis (ED), Pneumonia (DC) Patient Language: Divehi Stand Alone Forms: General Discharge Information Follow-up/Referrals: Carey,MD Anila [Primary Care Provider] - 2 Weeks Aldair Tirado MD [Physician, Gastroenterology] - 3 Weeks Discharge Medications: New prednisone 10 mg Tablet 30 mg PO DAILY@0800 1 Days Qty: 3 0RF levofloxacin 750 mg tablet 750 mg PO DAILY Qty: 6 0RF metronidazole 500 mg tablet 500 mg PO Q8H 6 Days Qty: 18 0RF (DME) blood-glucose meter [OneTouch Verio Flex meter[place] [facility] [place] 1 0RF Rx Instructions: May substitute to in-stock meter and/or covered by insurance. Use As Directed (DME) OneTouch Verio test strips Strip Qty: 1 0RF Rx Instructions: May substitute to in-stock and/or covered by insurance strips. Use As Directed (DME) lancets [OneTouch Delica Plus Lancet] [facility] Q[facility]: 1 0RF Rx Instructions: May substitute to in-stock and/or covered by insurance lancets. Use As Directed metformin [Glucophage XR] 500 mg tablet extended release 24 hr 500 mg PO DAILY Qty: 30 0RF Continued atorvastatin 20 mg tablet 20 mg PO DAILY trazodone 50 mg tablet 300 mg PO HS Rx Instructions: can take up to 6 tabs @ HS clonazepam 0.5 mg tablet 0.5 mg PO Q12H PRN (Reason: Anxiety) amlodipine 5 mg tablet 5 mg PO DAILY buspirone 10 mg tablet 10 mg PO TID Patient Comments: 20mg po qam and 10mg po qpm montelukast 10 mg tablet 10 mg PO HS azelastine 137 mcg (0.1 %) aerosol,spray 137 mcg INTRANASAL BID Rx Instructions: 2 SPRAYS BID albuterol sulfate 90 mcg/actuation HFA aerosol inhaler 2 puff INHALATION Q4H PRN (Reason: SHORTNESS OF BREATH) fluticasone propionate 50 mcg/actuation spray,suspension 2 spray intranasal DAILY Rx Instructions: 2 SPRAYS EACH NOSTRIL pramipexole 1.5 mg tablet 4.5 mg PO HS escitalopram oxalate 20 mg tablet 20 mg PO DAILY multivitamin with minerals Tablet 1 tablet PO DAILY cholecalciferol (vitamin D3) [Vitamin D3] 10 mcg (400 unit) Tablet 10 mcg PO DAILY Lactobacillus reuteri 100 million cell Tablet,Chewable 1 cell PO DAILY acetaminophen 500 mg tablet 500 mg PO Q6H PRN (Reason: pain) Qty: 30 1RF Patient Comments: states she takes up to 3 times per day with her tramadol. ferrous sulfate 324 mg (65 mg iron) tablet,delayed release (DR/EC) 324 mg PO DAILY Qty: 30 0RF omeprazole 20 mg capsule,delayed release(DR/EC) 20 mg PO BID Qty: 0 0RF ondansetron 4 mg tablet,disintegrating 4 mg PO Q8H Qty: 7 0RF vilazodone [Viibryd] 10 mg tablet 10 mg PO DAILY Rx Instructions: must administer with a meal/food spironolactone 25 mg tablet 25 mg PO DAILY pantoprazole 40 mg tablet,delayed release (DR/EC) 40 mg PO DAILY gentamicin 0.1 % ointment 1 applic TOPICAL DAILY Patient Comments: apply to wound on foot miconazole nitrate [Miconazole-3] 4 % (200 mg)- 2 % (9 gram) comb pack,prefill appl, cream 1 appful vaginal HS Rx Instructions: as vaginal cream tramadol 50 mg tablet 50 mg PO BID Rx Instructions: up to x 3 per day 1-2 tabs Breztri Aerosphere 160-9-4.8 mcg/actuation HFA aerosol inhaler 2 inh INHALATION BID clopidogrel [Plavix] 75 mg Tablet 75 mg PO DAILY aspirin 81 mg Tablet,Delayed Release (Dr/Ec) 81 mg PO DAILY furosemide 40 mg Tablet 40 mg PO BID albuterol sulfate 2.5 mg/0.5 mL Solution For Nebulization 2.5 mg INHALATION QID calcium carbonate 600 mg calcium (1,500 mg) Tablet 600 mg PO DAILY tizanidine 4 mg Capsule 4 mg PO HS MDD 4 mg PRN (Reason: Muscle Spasm) Rx Instructions: 0.5 of tab up to 1 full tab potassium chloride 20 mEq Tablet Extended Release 20 meq PO DAILY Held Humira(CF) Pen 40 mg/0.4 mL pen injector kit 40 mg SUBCUT [id number] Hold Instructions: Resume on 03/10/25. hold untill finishing antibiotic mycophenolate mofetil 500 mg tablet 1,000 mg PO Q12H Hold Instructions: Resume on 03/10/25. hold untill finishing abx Discontinued moxifloxacin 400 mg tablet 400 mg PO DAILY Patient Comments: x 10 days filled 02/24/25 did not take today Date of admission: 02/26/25 16:58 Primary Care Provider: Carey,Anila Admitting Provider: Teodora Lakhani Attending physician on admission: Teodora Lakhani Condition: Improved
--- NOTE | 2025-03-04 14:59 | WPDINFPN2 ---
Progress Note: A&P Assessment and Plan (1) Leukocytosis: Qualifiers: Leukocytosis type: unspecified Qualified Code(s): D72.829 - Elevated white blood cell count, unspecified Code(s): D72.829 - Elevated white blood cell count, unspecified Status: Acute (2) Diverticulitis: Code(s): K57.92 - Diverticulitis of intestine, part unspecified, without perforation or abscess without bleeding Status: Acute (3) Rheumatoid arthritis: Qualifiers: Rheumatoid arthritis location: unspecified site Rheumatoid factor presence: unspecified presence Qualified Code(s): M06.9 - Rheumatoid arthritis, unspecified Code(s): M06.9 - Rheumatoid arthritis, unspecified Status: Acute (4) Bile duct, common, 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 -- initial improvement in leukocytosis corresponds with improvement in diverticulitis. -- recurrence of the increasing white blood cell count noted after placement on prednisone and suspect a steroid- induced phenomenon. Today, white blood cell count improving. # Acute diverticulitis. -- improving on levofloxacin/metronidazole. # History of rheumatoid arthritis for which she receives Humira and mycophenolate, both held upon hospitalization. Plan: -- continue planned antibiotic treatment course for diverticulitis -- today is day 8 of 14. -- discharge planned. Patient was seen via video telehealth consultation with the assistance of staff. Chart, data, and patient independently reviewed. Patient was located at [facility] while I was located in my [place] office. Received verbal consent from patient. Subjective Date/time seen: 03/04/25 14:59 Interval history: 03/04/2025: Afebrile and white blood cell count decreasing even though she remains on prednisone. Feels much better today. Discharge planned. Review of Systems Review of Systems: All systems reviewed & are unremarkable except as noted in HPI and below Exam Narrative: She is awake and alert and sitting up in a chair. Nontoxic in appearance. States she is feeling much better. Nonlabored respirations. No tachycardia. Abdomen without significant distention. No evidence of rash. Objective Data Vital Signs Vital Signs: Vital Signs - 24 hr 03/03/25 20:19 03/03/25 20:19 03/03/25 20:21 Temperature 97.0 F L Pulse Rate 91 104 H Respiratory Rate 18 20 Blood Pressure 154/93 H Pulse Oximetry 94 98 Oxygen Delivery Nasal Cannula Oxygen Flow Rate 4 03/03/25 20:24 03/03/25 21:38 03/04/25 00:00 Temperature Pulse Rate 92 87 Respiratory Rate 18 21 H Blood Pressure Pulse Oximetry 98 94 Oxygen Delivery Nasal Cannula Autopap Oxygen Flow Rate 5 03/04/25 02:00 03/04/25 02:00 03/04/25 02:06 Temperature Pulse Rate 88 Respiratory Rate 18 18 18 Blood Pressure Pulse Oximetry 93 Oxygen Delivery Autopap Oxygen Flow Rate 03/04/25 04:47 03/04/25 08:27 03/04/25 08:52 Temperature 98.2 F Pulse Rate 77 90 Respiratory Rate 20 18 Blood Pressure 121/57 L Pulse Oximetry 99 Oxygen Delivery Nasal Cannula Oxygen Flow Rate 5 03/04/25 08:53 03/04/25 08:58 03/04/25 09:14 Temperature Pulse Rate 92 96 Respiratory Rate 20 18 Blood Pressure Pulse Oximetry 94 97 Oxygen Delivery Nasal Cannula Nasal Cannula Oxygen Flow Rate 5 5 03/04/25 14:09 Temperature Pulse Rate 98 Respiratory Rate 20 Blood Pressure Pulse Oximetry Oxygen Delivery Oxygen Flow Rate Intake/Output Intake/Output: Intake & Output 03/01/25 03/02/25 03/03/25 03/04/25 23:59 23:59 23:59 23:59 Intake Total 2995 638 4483 618 Balance 6015 753 2389 618 Meds/Results Radiology Results: ITS Impressions Chest X-Ray 02/25/25 12:20 IMPRESSION: 1: Small interstitial opacities in the visualized lung herrmann. Differential includes chronic interstitial changes, interstitial edema or interstitial pneumonia. 2. Lung volumes are low. If symptoms persist or worsen, consider a short-term follow-up study or additional imaging for further assessment. Upper Quadrant Ultrasound 02/28/25 17:41 IMPRESSION: 1. The hyperenhancing mass in right hepatic lobe seen by CT is not visualized. In the absence of known malignancy, this finding is likely a hemangioma or focal nodular hyperplasia. Abdomen/Pelvis CT 03/01/25 13:19 IMPRESSION: 1. Decrease in now minimal stranding surrounding a diverticulum at the proximal sigmoid colon consistent with resolving diverticulitis. No new acute intra-abdominal/pelvic process. 2. Again seen is an indeterminate 1.3 cm hyperenhancing focus in the right hepatic lobe. Absence of known primary malignancy or known liver disease this most likely represents a hemangioma or focal nodular hyperplasia. Consider follow-up pre and post contrast MRI for further evaluation. 3. Persistent mild dilation the common bile duct which measures up to 1.3 cm without evident obstructing stone or mass most likely related to prior cholecystectomy. Labs Labs: Laboratory Results - last 24 hr 03/03/25 03/03/25 03/04/25 16:52 20:17 06:04 WBC 12.8 H RBC 3.70 L Hgb 11.0 L Hct 34.9 L MCV 94.3 MCH 29.7 MCHC 31.5 L RDW 13.9 Plt Count 205 MPV 9.1 Sodium 135 L Potassium 3.8 Chloride 98 Carbon Dioxide 35 H Anion Gap 2 L BUN 15 Creatinine 0.57 L Estim Creat Clear Calc 70 Estimated GFR > 60 Glucose 78 POC Capillary Glucose 231 H 179 H Calcium 8.8 03/04/25 03/04/25 07:28 11:36 WBC RBC Hgb Hct MCV MCH MCHC RDW Plt Count MPV Sodium Potassium Chloride Carbon Dioxide Anion Gap BUN Creatinine Estim Creat Clear Calc Estimated GFR Glucose POC Capillary Glucose 92 131 H Calcium
--- NOTE | 2025-03-07 14:51 | PCCDE ---
03/07/25: A1C: 02/25/25 (was pending during inpatient) Patient called due to inability flower buncher or picker glucometer/strips/lancets per pharmacy due to missing information - and stating inability get Metformin ER prescription. New Type 2 DM diagnosis. She uses [facility] in [place]: [phone] - I reached out to pharmacy and spoke with Melissa certified physical therapist assistant. - Apparently they offered patient 90 day Rx vs the 30 day that was written Metformin ER 500 mg /day-> explained re: Hospital and pt to see PCP for additional Rx Pharmacy unable to fill Rx for glucometer strips/lancets due to frequency of monitoring n/a. - I reached out to Dr. Funes on DC summary and provided necessary information - she will reach out to pharmacy. - I called Estefany back and explained status. - Also discussed DSMT/MNT opportunity (she will talk with PCP - uncertain if attend in [place] close to or [place])
== END 2025-03-04 14:30 | disposition home health service (06) | DRG 391 ==
LOC: ANHED 12:59 → ANH3MEDSUR 13:37
PROVIDERS: Internal Medicine; Nurse Practitioner Gerontology; Student in an Organized Health Care Education/Training Program; Admitting Provider General Practice; Emergency Provider Emergency Medicine; PCP Internal Medicine Geriatric Medicine; Visit Provider Internal Medicine
DX: K57.32 Diverticulitis of large intestine without perforation or abscess without bleeding (principal); J18.9 Pneumonia, unspecified organism; D84.821 Immunodeficiency due to drugs; J96.10 Chronic respiratory failure, unspecified whether with hypoxia or hypercapnia; J44.1 Chronic obstructive pulmonary disease with (acute) exacerbation; J44.0 Chronic obstructive pulmonary disease with (acute) lower respiratory infection; E46 Unspecified protein-calorie malnutrition; I50.32 Chronic diastolic (congestive) heart failure; I11.0 Hypertensive heart disease with heart failure; I87.2 Venous insufficiency (chronic) (peripheral); D50.9 Iron deficiency anemia, unspecified; E11.9 Type 2 diabetes mellitus without complications; K83.8 Other specified diseases of biliary tract; K21.9 Gastro-esophageal reflux disease without esophagitis; K76.9 Liver disease, unspecified; E78.5 Hyperlipidemia, unspecified; M06.9 Rheumatoid arthritis, unspecified; G25.81 Restless legs syndrome; G47.33 Obstructive sleep apnea (adult) (pediatric); F41.9 Anxiety disorder, unspecified; Z20.822 Contact with and (suspected) exposure to COVID-19; Z96.659 Presence of unspecified artificial knee joint; Z79.02 Long term (current) use of antithrombotics/antiplatelets; Z79.82 Long term (current) use of aspirin; Z79.620 Long term (current) use of immunosuppressive biologic; Z68.36 Body mass index [BMI] 36.0-36.9, adult
CPT/HCPCS: 36415; 36600; 71046; 74177; 76705; 80048; 80053; 81001; 82607; 82728; 82746; 82805; 82948; 83036; 83540; 83550; 83605; 83735; 83880; 84100; 84145; 84443; 84484; 85018; 85025; 85027; 85610; 85730; 86140; 87040; 87637; 93005; 93306; 94002; 94640; 96360; 96361; 96374; 96375; 97110; 97116; 97161; 97166; 97530; 97535; 99285; A9270; G0378; J1650; J1756; J1815; J1836; J1938; J1956; J2919; J7030; J7050; J7512; J7517; Q9967